=== PATIENT | female | born 1975 | race Caucasian/White ===

== ENCOUNTER 2023-02-10 13:18 | Emergency (ER) | payer OTHER, SELFPAY ==
[2023-02-10] VITALS (7 sets, daily range): BP systolic 94–104; BP diastolic 68–82; PULSE 109–129; RESP 19–24; TEMP 36.7–37.1; O2SAT 88–96
--- NOTE | ~2023-02-10 | XR_ITS ---
Clinical Indication: Asthma PA and lateral views of the chest: Comparison: None Findings: Questionable minimal bibasilar haziness. Cardiomediastinal silhouette is within normal alexandre its. Bones and soft tissues are unremarkable. Impression: Questionable minimal bibasilar haziness. Correlate for minimal pulmonary edema or atypical infection. Reviewed, dictated and finalized at [facility]. Impression: Questionable minimal bibasilar haziness. Correlate for minimal pulmonary edema or atypical infection.
--- NOTE | 2023-02-10 13:19 | ECG_ITS ---
Measurements Intervals [place] Rate: 122 P: 55 [place]: 140 QRS: 9 QRSD: 86 T: 67 QT: 407 QTc: 582 Interpretive Statements SINUS TACHYCARDIA VENTRICULAR PREMATURE COMPLEX DELAYED PRECORDIAL R/S TRANSITION BASELINE ARTIFACT- I, II, III, AVR, AVL, AVF, V5 ABNORMAL ECG NO PREVIOUS ECG AVAILABLE FOR COMPARISON Electronically Signed On 02-10-2023 16:10:31 CDT by Foreign Tracey D.O.
[2023-02-10 14:16] LABS: Alanine Aminotransferase 20 U/L (6-35); Albumin Level 4.2 g/dL (3.5-5.1); Alkaline Phosphatase 121 U/L (38-126); Anion Gap 8 mmol/L (8-16); Aspartate Amino Transferase 35 U/L (14-36); Bilirubin,Total 1.3 mg/dL (0.2-1.3); Blood Urea Nitrogen 4 mg/dL (7-17); Calcium 9.1 mg/dL (8.4-10.2); Carbon Dioxide 29 mmol/L (22-30); Chloride 95 mmol/L (98-107); Estimated CRCL calculation 108 ml/min; Estimated Glomerular Filt Rate > 60; Glucose 169 mg/dL (65-110); Potassium 4.8 mmol/L (3.4-5.0); Sodium 132 mmol/L (137-145)
[2023-02-10 14:55] LABS: Eosinophils Percent Auto 1.1 % (0-4.4); Immature Granulocyte Absolute 0.04 K/mm3 (0.00-0.031); Immature Granulocyte Percent A 1.5 % (0-0.5); Lymphocytes Absolute Auto 0.44 K/mm3 (0.9-3.2); Lymphocytes Percent Auto 16.6 % (18.3-44.2); Mean Corpuscular HGB Conc 32.2 g/dl (32-36); Mean Corpuscular Hemoglobin 35.4 pg (26-34); Mean Corpuscular Volume 110.1 fl (80-100); Mean Platelet Volume 10.1 fl (7.4-10.4); Monocytes Absolute Auto 0.2 K/mm3 (0.1-0.6); Monocytes Percent Auto 8.3 % (2.6-8.5); Neutrophils Absolute Auto 1.9 K/mm3 (1.3-6.7); Neutrophils Percent Auto 72.5 % (45.5-73.1); Red Cell Distribution Width 12.6 % (11.5-14.5)
[2023-02-10 14:56] LABS: Hematocrit 43.5 % (37.0-47.0); Red Blood Count 3.95 M/mm3 (4.2-5.4)
[2023-02-10 14:57] LABS: Platelet Count Result 170 k/mm3 (150-375); White Blood Count 13.5 K/mm3 (4.5-10.0)
[2023-02-10] MEDS: IPRATROPIUM BR 0.02% INH SOLN 0.5 MG/2.5 ML VIAL INHALATION (16:13)
[2023-02-10] MEDS: ALBUTEROL SULFATE NEB 2.5 MG/3 ML INH 5 MG INHALATION (16:13)
[2023-02-10 16:27] LABS: Troponin I < 0.012 ng/mL (0.000-0.034)
[2023-02-10] MEDS: KETOROLAC 30 MG/ML VIAL (*BKC) IV PUSH (16:54)
[2023-02-10] MEDS: methylPREDNISolone SOD SUCC 125 MG VIAL IV PUSH (16:58)
[2023-02-10] MEDS: ACETAMINOPHEN 500 MG TABLET 1000 MG PO (17:02)
[2023-02-10] MEDS: SODIUM CHLORIDE 0.9% IV 1,000 ML 999 ML IV CONT (17:03)
--- NOTE | 2023-02-10 18:10 | PC.NURSE ---
Pt ambulated around the nurse's station with an O2 of 89%. Pt stated that she felt okay the entire time.
--- NOTE | 2023-02-10 18:18 | ED.SOB ---
HPI - SOB/Dyspnea General Chief Complaint: Shortness of Breath/Dyspnea Stated Complaint: SOB, CP Time Seen by Provider: 02/10/23 15:33 History of Present Illness HPI Narrative: This is a 48-year-old female, with past history of COPD, recently discharged AGAINST MEDICAL ADVICE from [facility] 3 days ago for pneumonia and C. difficile, who presents to the emergency department complaining of shortness of breath and chest pain. The patient states she does not have an albuterol inhaler at home and has not used her nebs. She complains of cough productive of scant sputum with associated left lower chest pain, described as sore and dull. Pain is rated 4/10 and does not radiate. She states she picked up her antibiotics from the pharmacy today. She denies current diarrhea with a solid stool passed today Related Data Allergies Allergy/AdvReac Type Severity Reaction Status Date / Time adhesive tape AdvReac Other Verified 02/10/23 15:40 Sulfa (Sulfonamide AdvReac Headache Verified 02/10/23 13:18 Antibiotics) Review of Systems Review of Systems: CONSTITUTIONAL: Denies fever, chills, or sweats. CARDIOVASCULAR: Chest pain denies palpitations, or edema. RESPIRATORY: Cough and dyspnea GASTROINTESTINAL: Denies abdominal pain, nausea, vomiting, or diarrhea. GENITOURINARY: Denies dysuria or hematuria. SKIN: Denies rash or itching. MUSCULOSKELETAL: Denies back pain, joint pain, or myalgia. NEUROLOGIC: Denies headache, numbness, dizziness, or weakness. PSYCHIATRIC: Denies anxiety or depression. PMFSH Past Medical History Medical History COPD (chronic obstructive pulmonary disease) Surgical History Surgical History No significant past surgical history Social History Social History (Updated 02/10/23 @ 22:57 by Jacob Brenardo MD) Smoking status: Current every day smoker Alcohol intake: never Substance use: current Substance use type: marijuana Exam Narrative: GENERAL: Well-developed, well-nourished, and in no acute distress. HEAD: Normocephalic, atraumatic. EYES: PERRLA and EOMI. ENT: Nares clear, no rhinorrhea or epistaxis. Mucous membranes moist. Oropharynx without tonsillar hypertrophy exudate or other lesions. NECK: Supple. No adenopathy or masses. No JVD CHEST: Clear to auscultation. No respiratory distress. No wheezes rales or rhonchi HEART: Regular rate and rhythm. No murmur heard. Normal peripheral pulses. ABDOMEN: Soft, nontender, nondistended, normal active bowel sounds. EXTREMITIES: Normal range of motion. No edema. SKIN: Warm, dry, no rash. NEURO: No focal deficits. Alert and oriented x3. PSYCH: Normal mood and affect. Course Course Emergency Course: 18:10 - On reevaluation, the patient states she feels improved. She ambulated with nursing staff and feels comfortable with discharge. Chemistries unremarkable. CBC demonstrates elevated white blood cell count of 13.5. Chest x-ray demonstrates minimal bibasilar opacities. EKG and troponin negative. Will discharge with an albuterol inhaler and recommendation for inhaler treatments once an hour for 3 hours and as needed thereafter. I advised the patient to continue taking the antibiotics previously prescribed. Discussed return and emergency precautions including signs/symptoms of ACS and respiratory distress. The patient voiced understanding and is comfortable with the plan. All questions answered to her satisfaction Vital Signs Vital signs: Vital Signs Temperature 98.1 F 02/10/23 13:21 Pulse Rate 129 H 02/10/23 13:21 Respiratory Rate 20 02/10/23 13:21 Blood Pressure 98/68 L 02/10/23 13:21 Pulse Oximetry 90 02/10/23 13:21 Oxygen Delivery Room Air 02/10/23 13:21 Temperature 98.8 F 02/10/23 15:43 Pulse Rate 110 H 02/10/23 18:37 Respiratory Rate 19 02/10/23 17:08 Blood Press
== END 2023-02-10 16:30 | disposition home or self-care (01) ==
PROVIDERS: General Practice; Emergency Provider Preventive Medicine Aerospace Medicine; PCP Family Medicine
DX: J44.1 Chronic obstructive pulmonary disease with (acute) exacerbation (principal); R00.0 Tachycardia, unspecified; J18.9 Pneumonia, unspecified organism
CPT/HCPCS: 36415; 71046; 80053; 84484; 85025; 93005; 94640; 96361; 96374; 96375; 99284; A9270; J1885; J2930; J7030

== ENCOUNTER 2023-02-17 10:31 | Observation (INO) | payer OTHER, SELFPAY ==
[2023-02-17] VITALS (24 sets, daily range): BP systolic 97–131; BP diastolic 71–86; PULSE 84–129; RESP 14–25; TEMP 37.1–37.6; O2SAT 86–97
--- NOTE | ~2023-02-17 | XR_ITS ---
EXAM: XR knee RT min 4V DATE: 02/17/2023 18:45 HISTORY: Right knee pain- NO INJURY . COMPARISON: None available. FINDINGS: Decreased mineralization. No fracture or dislocation. No lytic or blastic lesion. Mild kne e osteoarthritis. Patellar enthesopathy. No erosion or periosteal change. Soft tissues within normal limits. IMPRESSION: Severe osteopenia. No acute osseous finding in the right knee. Reviewed, dictated and finalized at location K.
--- NOTE | ~2023-02-17 | US_ITS ---
EXAMINATION: US venous doppler [facility] DATE: 02/18/2023 10:05 INDICATION: Abdominal pain. TECHNIQUE: Grayscale ultrasound images without and with compression and Doppler ultrasound images of the bilateral lower extremity veins were obtained. COMPARISON: None. FINDINGS: The visualized portions of right common femoral vein, profunda (deep) femoral vein, femoral vein, pop liteal vein, peroneal veins, posterior tibial veins, and greater saphenous vein outflow are patent. The visualized portions of left common femoral vein, profunda femoral vein, femoral vein, popliteal v ein, peroneal veins, posterior tibial veins, and greater saphenous vein outflow are patent. IMPRESSION: 1. No deep venous thrombosis. Reviewed, dictated and finalized at location L.
--- NOTE | ~2023-02-17 | XR_ITS ---
EXAMINATION: XR chest 2V DATE: 02/17/2023 11:45 INDICATION: Shortness of breath. TECHNIQUE: Frontal and lateral views of the chest were obtained. COMPARISON: Chest 2 views 02/10/2023 FINDINGS: There is no pneumonia, pleural effusion, or pneumothorax. The heart size is normal. IMPRESSION: 1. No acute cardiopulmonary disease. Reviewed, dictated and finalized at location B.
--- NOTE | ~2023-02-17 | CT_ITS ---
EXAMINATION: CT abdomen pelvis w con DATE: 02/17/2023 13:17 INDICATION: Chronic diarrhea. TECHNIQUE: Computed tomography (CT) of the abdomen and pelvis was performed with 100 mL Omnipaque 350 intravenous contrast. Automated exposure control and iterative reconstruction technique were employe d. The dose-length product was 243.07 mGy-cm. COMPARISON: None. FINDINGS: There are patchy groundglass opacities in the lower lobes and right upper lobe. There is mi ld atelectasis in right middle lobe. No pleural effusion. The heart size is normal. There are coronar y artery calcifications. No pericardial effusion. The liver is normal. The gallbladder is normal in s ize. Material in the gallbladder may be sludge or stones. The spleen, pancreas, adrenal glands, and k idneys are normal. There is diverticulosis of the colon without evidence of diverticulitis. There is liquid stool in the colon correlating with the symptom of diarrhea. The appendix is normal. There is calcified atherosclerosis of the aorta and many of the other arteries. There are no pathologically en larged lymph nodes. There is no free intraperitoneal fluid. There is mild lumbar spondylosis. IMPRESSION: 1. Patchy groundglass opacities in the lower lobes and right upper lobe suspicious for atypical pneum onia. Reviewed, dictated and finalized at location B. IMPRESSION: 1. Patchy groundglass opacities in the lower lobes and right upper lobe suspici ous for atypical pneumonia.
--- NOTE | ~2023-02-17 | CT_ITS ---
EXAMINATION: CTA chest PE protocol DATE: 02/17/2023 18:50 INDICATION: Elevated D-dimer TECHNIQUE: Computed tomography angiography (CTA) of the chest was performed with 100 mL Omnipaque-350 intravenous contrast timed to evaluate the pulmonary arteries. Coronal maximum intensity projection 3D-reconstructions were created by the technologist. The dose-length product (DLP) was 208.30 mGy-cm. Automated exposure control and iterative reconstruction technique were employed. COMPARISON: X-ray chest 02/17/2023. FINDINGS: Lung parenchyma and airways: Ill-defined scattered small patchy areas of groundglass and tree-in-bud opacities. Pleura: Unremarkable. Thoracic inlet, axillae and chest wall: Unremarkable. Thoracic aorta: Normal. Mediastinum: Normal. Heart and pericardium: Normal. Coronary artery calcifications: Mild. Upper abdomen: No significant finding. Bones: No acute osseous finding. Pulmonary arteries: Study quality: Adequate. No pulmonary emboli detected. IMPRESSION: No CT evidence of acute pulmonary embolus. Pulmonary opacities as can be seen with atypical infection (MAC, TB, fungal), ABPA, airways disease ( CF, bronchiectasis), and aspiration. Reviewed, dictated and finalized at location K. IMPRESSION: No CT evidence of acute pulmonary embolus. Pulmonary opacities as can be seen with atypical infection (MAC, TB, fungal), A BPA, airways disease (CF, bronchiectasis), and aspiration.
--- NOTE | 2023-02-17 11:05 | ED.NAVMDI ---
HPI - Nausea/Vomiting/Diarrhea General Chief complaint: Nausea/Vomiting/Diarrhea Stated complaint: Cdiff, Right knee pain Time Seen by Provider: 02/17/23 10:37 History of Present Illness HPI Narrative: 48-year-old female history of hypertension and asthma presents to the emergency room for evaluation of diarrhea. Patient states 2 weeks ago she was seen at [facility], operated by [facility] emergency room for multiple episodes of nonbloody diarrhea, was diagnosed with C. difficile. Patient was admitted at that time for hydration and IV antibiotics. States after 2 days she signed out AMA. Patient reports she continues to take 3 different types of antibiotics . Reports she stopped taking her antibiotics yesterday, continues to have multiple episodes of diarrhea. Patient also reports experiencing shortness of breath. Denies any abdominal pain or fevers. Related Data Allergies Allergy/AdvReac Type Severity Reaction Status Date / Time Sulfa (Sulfonamide AdvReac Severe unk Verified 06/10/17 16:59 Antibiotics) Review of Systems Review of Systems: CONSTITUTIONAL: Denies fever, chills, or sweats. EYES: Denies visual changes, redness, or discharge. ENT: Denies rhinorrhea, congestion, sore throat, or otalgia. CARDIOVASCULAR: Denies chest pain, palpitations, or edema. RESPIRATORY: Reports dyspnea. GASTROINTESTINAL: Reports abdominal discomfort and diarrhea. GENITOURINARY: Denies dysuria or hematuria. SKIN: Denies rash or itching. MUSCULOSKELETAL: Denies back pain, joint pain, or myalgia. NEUROLOGIC: Denies headache, numbness, dizziness, or weakness. PSYCHIATRIC: Denies anxiety or depression. Exam Narrative: GENERAL: Cachectic, no physical limitations, and in no acute distress. HEAD: Normocephalic, atraumatic. EYES: Conjunctivae normal, PERRLA and EOMI. CHEST: Inspiratory wheezing upper lung rodriguez HEART: Tachycardic with regular rhythm. No murmur heard. Normal peripheral pulses. ABDOMEN: Soft, right lower quadrant tenderness, nondistended, hyper active bowel sounds. EXTREMITIES: Normal range of motion. No edema. No clubbing or cyanosis SKIN: Warm, dry, no rash. No noted wounds NEURO: No focal deficits. Alert and oriented x3. MAEW. CN's II-XI intact bilaterally, normal gait PSYCH: Cooperative. Normal mood and affect. Course Vital Signs Vital signs: Vital Signs Pulse Rate 128 H 02/17/23 10:43 Respiratory Rate 20 02/17/23 10:43 Blood Pressure 131/86 02/17/23 10:43 Pulse Oximetry 91 02/17/23 10:43 Temperature 37.6 C 02/17/23 10:47 Pulse Rate 108 H 02/17/23 12:45 Respiratory Rate 17 02/17/23 12:45 Blood Pressure 113/81 02/17/23 12:35 Pulse Oximetry 94 02/17/23 12:45 Oxygen Delivery Nasal Cannula 02/17/23 11:49 Oxygen Flow Rate 2 02/17/23 11:49 MDM - Nausea/Vomiting/Diarrhea MDM Narrative Medical decision making narrative: 48-year-old female history of asthma and hypertension presented to the emergency room for evaluation of diarrhea and shortness of breath. Patient was recently admitted to [facility], but left AGAINST MEDICAL ADVICE citing that she was being treated poorly. Patient was being treated for C. difficile. States that she was sent home on 3 antibiotics, which she completed yesterday. Patient continues to have multiple episodes of diarrhea. Patient was found to be hypoxic on presentation with a pulse ox of 82%. ABG shows respiratory alkalosis. Chest x-ray shows bilateral lower lobe pneumonia. CT abdomen shows no acute abnormality. Patient was started on Rocephin and azithromycin for pneumonia. Consulted with hospitalist will admit patient to [facility]. Lab Data 02/17/23 10:55 02/17/23 10:55 Labs: Lab Results 02/17/23 02/17/23 Range/Units 10:55 11:25 WBC 9.1 (4.5-10.0) K/mm3 RBC 3.90 L (4.2-5.4) M/mm3 Hgb 14.0 (12.0-15.0) g/dL Hct 42.5 (37.0-47.0) % MCV 109.0 H (80-100) fl MCH 35.9 H (26-34) pg MCHC 32.9
[2023-02-17] MEDS: SODIUM CHLORIDE 0.9% IV 1,000 ML 500 ML IV CONT (11:12)
[2023-02-17 11:13] LABS: Alanine Aminotransferase 32 U/L (6-35); Albumin Level 3.9 g/dL (3.5-5.1); Alkaline Phosphatase 118 U/L (38-126); Anion Gap 7 mmol/L (8-16); Aspartate Amino Transferase 43 U/L (14-36); Bilirubin,Total 0.4 mg/dL (0.2-1.3); Blood Urea Nitrogen 2 mg/dL (7-17); Calcium 8.6 mg/dL (8.4-10.2); Carbon Dioxide 33 mmol/L (22-30); Chloride 97 mmol/L (98-107); Estimated CRCL calculation 89 ml/min; Estimated Glomerular Filt Rate > 60; Glucose 231 mg/dL (65-110); Lipase 46 U/L (23-300); Potassium 3.3 mmol/L (3.4-5.0); Sodium 137 mmol/L (137-145)
[2023-02-17 11:38] LABS: Appearance Urine Clear (Clear); Bilirubin Urine Negative (Negative); Blood Urine Negative (Negative); Color Urine Yellow (Yellow); Glucose Urine UA Trace mg/dL (Negative); Ketones Urine Negative (Negative); Leukocyte Esterase Ur Negative LEU/UL (Negative); Nitrate Urine Negative (Negative); Protein Urine Negative (Negative); Specific Grav Ur 1.012 (1.001-1.035); Urobilinogen Urine 0.2 mg/dL (<2.0); pH Urine 5.5 (5.0-9.0)
[2023-02-17 11:46] LABS: Alveolar/Arterial O2 Gradient 53.5 mmHg; Base Excess ABG 5.9 mEq/l (+/-2.0); Fractional Inspired Oxygen 21 %; HCO3 ABG 28.6 mEq/l (22.0-26.0); Oxygen Content ABG 17.3 %vol (16.0-22.0); Oxygen Saturation ABG 91.4 % (95.0-100.0); PCO2 ABG 35.3 mmHg (35.0-45.0); PO2 FiO2 Ratio Arterial Blood 2.57 %; Total Hemoglobin 14.5 g/dL (12.0-18.0)
[2023-02-17 11:47] LABS: Add Urine Microscopic? NO
[2023-02-17 11:47] LABS: pH ABG 7.526 (7.350-7.450)
[2023-02-17 11:48] LABS: Modified Allen's Test Pass; Oxyhemoglobin 85.2 % THb (90.0-100.0); Site Drawn RIGHT RADIAL
[2023-02-17 12:18] LABS: IFOB Positive Control Positive; Immunochemical Fecal Occult Bl Negative (N)
[2023-02-17 12:20] LABS: Eosinophils Percent Auto 1.7 % (0-4.4); Immature Granulocyte Absolute 0.03 K/mm3 (0.00-0.031); Immature Granulocyte Percent A 1.7 % (0-0.5); Lymphocytes Absolute Auto 0.42 K/mm3 (0.9-3.2); Lymphocytes Percent Auto 23.2 % (18.3-44.2); Mean Corpuscular HGB Conc 32.9 g/dl (32-36); Mean Corpuscular Hemoglobin 35.9 pg (26-34); Mean Platelet Volume 9.9 fl (7.4-10.4); Monocytes Absolute Auto 0.2 K/mm3 (0.1-0.6); Monocytes Percent Auto 8.3 % (2.6-8.5); Neutrophils Absolute Auto 1.2 K/mm3 (1.3-6.7); Neutrophils Percent Auto 65.1 % (45.5-73.1); Red Cell Distribution Width 12.8 % (11.5-14.5)
[2023-02-17 12:26] LABS: Hematocrit 42.5 % (37.0-47.0); Platelet Count Result 385 k/mm3 (150-375); White Blood Count 9.1 K/mm3 (4.5-10.0)
[2023-02-17 12:29] LABS: Platelet Estimate Adequate (Adequate); Schistocytes None Seen (NORMAL)
[2023-02-17 12:53] LABS: Toxigenic C. Diff NEGATIVE (NEGATIVE)
[2023-02-17 13:10] LABS: Hemoglobin A1C 5.5 % (<5.7)
[2023-02-17] MEDS: AZITHROMYCIN 500 MG/NS 250 ML 500 MG/250 ML BAG 250 MG IVPB (14:08)
[2023-02-17] MEDS: ALBUTEROL SULFATE NEB 2.5 MG/3 ML INH INHALATION ×2 (14:23→21:35)
[2023-02-17 15:01] LABS: D Dimer 3.67 ug/mL (<0.48)
[2023-02-17 15:28] LABS: Influenza A QL RT-PCR Negative (Negative); Influenza B QL RT-PCR Negative (Negative); SARS-CoV-2 RNA PCR Negative (Negative)
--- NOTE | 2023-02-17 15:54 | ADMGEN ---
This patient, Radha Mendoza, was admitted to Medical Room 246-. Patient/family oriented to hospital policies and general routines including ID bracelet, bed and alarms, visiting hours, pain management, procedures, bathroom and other care routines, personal items, smoking policy, room service/diet, and visiting hours. Information on how to activate the Rapid Response Team has been discussed. Patient/Family are encouraged to report perceived risks to care and to ask questions if they do not understand what they are told or what they should do.
--- NOTE | 2023-02-17 16:12 | PM.IMHP ---
H&P: HPI History of Present Illness Date/Time: 02/17/23 16:12 Chief Complaint: Nausea vomiting diarrhea Narrative: This is a 48-year-old female patient who has a history of hypertension and asthma. The patient stated that approximately 2 weeks ago she was at [facility] and had diarrhea at that time and she was diagnosed with C diff. The patient stated that she took all the antibiotics for C diff dial. The patient stated that she has chronic diarrhea. The patient stated that she also drinks 24 oz cans of beer at least 6 cans a day. The patient also uses marijuana at times. The patient feels that she may be going into withdrawal soon. Patient stated that her stools are still loose. ER sent to stool specimen for evaluation she was found to be negative for C diff. the patient also has multiple polyps to bilateral arms and states that she bleeds she has bedbugs. We went through all of her belongings and assess the patient cannot find any bedbugs on the patient or her belongings. Abdominal pelvis CT was read as patchy ground-glass opacities in the lower lungs and right upper lung suspicious for atypical pneumonia. Chest x-ray was read as no acute cardiopulmonary disease. The patient was given IV fluids azithromycin Rocephin. The patient is being admitted to observation status on the date of service of 02/17/2023. Review of Systems Review of Systems: All systems reviewed & are unremarkable except as noted in HPI and below Constitutional: Constitutional: Reports as per HPI and Reports no additional constitutional complaints Eyes: Eyes: Reports as per HPI and Reports no additional eye complaints ENT: Reports system reviewed and no additional complaints, except as documented and Reports Normal hearing present Cardiovascular: Cardiovascular: Reports no additional cardiovascular complaints Respiratory: Respiratory: Reports no additional respiratory complaints and Reports no additional respiratory complaints Gastrointestinal: Gastrointestinal: Reports as per HPI and Reports no additional gastrointestinal complaints Musculoskeletal: Musculoskeletal: Reports no additional musculoskeletal complaints Integumentary/Breasts: Skin/Breast: Reports system reviewed and no additional complaints, except as docu and Reports as per HPI Neurologic: Reports system reviewed and no additional complaints, except as documented, Reports as per HPI and Reports Normal hearing present Psychiatric: Psychiatric: Reports no additional psychiatric complaints and Reports as per HPI Endocrine: Endocrine: Reports no additional endocrine complaints Hematologic/Lymphatic: Hematologic/Lymphatic: Reports no additional hematologic/lymphatic complaints Allergic/Immunologic: Allergic/Immunologic: Reports no additional allergic/immunologic complaints PMFSH Past Medical History Medical History (Updated 02/17/23 @ 18:47 by Mary Allen NP) Asthma Chronic back pain Chronic GERD History of Clostridioides difficile colitis Hypertension Marijuana use Nicotine abuse Surgical History Surgical History (Updated 02/17/23 @ 18:32 by Mary Allen NP) H/O dilation and curettage Family History Family History (Updated 02/17/23 @ 18:33 by Mary Allen NP) Father Diabetes mellitus Mother Diabetes mellitus Social History Social History (Updated 02/17/23 @ 18:34 by Mary Allen NP) Social History: The patient lives with her significant other. She occasionally smokes marijuana. She does work on auditing medical records. She drinks a 24 oz beer approximately 2-6 cans a day. She has 1 daughter that is 32 years old. Code status full code. Smoking packs per day: 1 Smoking cigarettes per day: 20.0 Smoking status: Current every day smoker Alcohol intake: current Drinks per week: 42 Substance use: current Substance use type: marijuana Lack of Transportation: No Lack of Food: Never True Current Housing: I Have Housing C
[2023-02-17 17:24] LABS: Glucose Point of Care 138 mg/dl (65-105)
[2023-02-17] MEDS: FAMOTIDINE 20 MG/2 ML VIAL IV PUSH (20:56)
[2023-02-17] MEDS: NICOTINE (*PBKC) 21 MG PATCH 1 PATCH TRANSDERM (21:09)
[2023-02-17] MEDS: chlordiazePOXIDE (*CRX) 25 MG CAPSULE PO (21:16)
[2023-02-17] MEDS: IPRATROPIUM BR 0.02% INH SOLN 0.5 MG/2.5 ML VIAL INHALATION (21:34)
[2023-02-18 02:12] LABS: Glucose Point of Care 105 mg/dl (65-105)
[2023-02-18] MEDS: IPRATROPIUM BR 0.02% INH SOLN 0.5 MG/2.5 ML VIAL INHALATION ×2 (02:52→07:36)
[2023-02-18 02:53] VITALS: PULSE 80; RESP 19
[2023-02-18] MEDS: ALBUTEROL SULFATE NEB 2.5 MG/3 ML INH INHALATION ×2 (02:53→07:36)
[2023-02-18 03:05] VITALS: PULSE 82; RESP 18
[2023-02-18 05:50] LABS: Lactic Acid Reflex 2.9 mmol/L (0.7-2.0)
[2023-02-18 06:00] VITALS: BP 118/83; PULSE 96; RESP 18; TEMP 36.8; O2SAT 93
[2023-02-18 06:12] LABS: Alanine Aminotransferase 22 U/L (6-35); Albumin Level 3.2 g/dL (3.5-5.1); Alkaline Phosphatase 96 U/L (38-126); Anion Gap 3 mmol/L (8-16); Aspartate Amino Transferase 28 U/L (14-36); Bilirubin,Total 0.4 mg/dL (0.2-1.3); Blood Urea Nitrogen < 2 mg/dL (7-17); Calcium 8.1 mg/dL (8.4-10.2); Carbon Dioxide 29 mmol/L (22-30); Chloride 99 mmol/L (98-107); Estimated CRCL calculation 108 ml/min; Estimated Glomerular Filt Rate > 60; Glucose 177 mg/dL (65-110); Magnesium 2.3 mg/dL (1.6-2.3); Potassium 2.9 mmol/L (3.4-5.0); Sodium 131 mmol/L (137-145)
[2023-02-18 06:43] LABS: Glucose Point of Care 191 mg/dl (65-105)
[2023-02-18 07:38] VITALS: PULSE 105; RESP 20; O2SAT 93
--- NOTE | 2023-02-18 07:42 | PM.IMPN ---
Progress Note: A&P Assessment and Plan (1) Pneumonia: Qualifiers: Laterality: bilateral Lung location: lower lobe of lung Pneumonia type: due to unspecified organism Qualified Code(s): J18.9 - Pneumonia, unspecified organism Code(s): J18.9 - Pneumonia, unspecified organism Status: Acute Assessment and Plan: Azithromycin and Rocephin started 02/17 Sputum cultures and blood culture Continue with nebulizer treatments CT concerning for atypical pneumonia, pulmonology consult pending (2) Hypertension: Code(s): I10 - Essential (primary) hypertension Status: Acute Assessment and Plan: Continue with amlodipine. Blood pressures reviewed 02/18 (3) Chronic GERD: Code(s): K21.9 - Gastro-esophageal reflux disease without esophagitis Status: Acute Assessment and Plan: IV Pepcid (4) Nicotine abuse: Code(s): Z72.0 - Tobacco use Status: Acute Assessment and Plan: Nicotine patch (5) Chronic back pain: Code(s): M54.9 - Dorsalgia, unspecified; G89.29 - Other chronic pain Status: Acute Assessment and Plan: P.r.n. Ultram (6) Asthma: Code(s): J45.909 - Unspecified asthma, uncomplicated Status: Acute Assessment and Plan: Continue nebulizer treatments. (7) Bedbug bite: Code(s): W57.XXXA - Bitten or stung by nonvenomous insect and other nonvenomous arthropods, initial encounter Status: Acute Assessment and Plan: The patient has cortisone that she has been using. (8) Elevated d-dimer: Code(s): R79.89 - Other specified abnormal findings of blood chemistry Status: Acute Assessment and Plan: Negative for PE (9) Marijuana use: Code(s): F12.90 - Cannabis use, unspecified, uncomplicated Status: Acute Assessment and Plan: Patient states she occasionally uses marijuana. (10) Diarrhea: Qualifiers: Diarrhea type: unspecified type Qualified Code(s): R19.7 - Diarrhea, unspecified Code(s): R19.7 - Diarrhea, unspecified Status: Acute Assessment and Plan: The patient stated she has chronic diarrhea. She recently had C diff a couple weeks ago. Her stools checked and she was negative. (11) Alcoholism: Code(s): F10.20 - Alcohol dependence, uncomplicated Status: Acute Assessment and Plan: Continue with CIWA scores. Continue with Librium and Ativan. Folic acid and thiamine. Plan DVT prophylaxis with Lovenox GI prophylaxis not indicated Code status full code Subjective Date/time seen: 02/18/23 07:42 Interval history: No overnight events noted. No chest pain or shortness of breath. No nausea, vomiting or diarrhea. No fevers or chills. Review of Systems Review of Systems: 12 point review of systems was assessed and was negative except as noted in the HPI Exam Narrative: General: No acute distress, alert and oriented per baseline HEENT: Atraumatic, normocephalic, mucous membranes moist CV: Regular rate and rhythm, S1, S2 Lungs: Clear to auscultation bilaterally, no rales or crackles noted, no wheezes, good air entry Abdomen: Soft, nontender, nondistended Extremities: Normal to inspection Skin: No rashes noted, no lesions or wounds seen Psych: Euthymic, normal affect Objective Data Vital Signs Vital Signs: Vital Signs - 24 hr 02/17/23 10:47 02/17/23 10:43 02/17/23 10:44 Temperature 99.6 F Pulse Rate 128 H 128 H 128 H Respiratory Rate 18 20 19 Blood Pressure 119/85 131/86 Pulse Oximetry 86 L 91 89 L Oxygen Delivery Room Air Oxygen Flow Rate Fraction of Inspired Oxygen 02/17/23 10:45 02/17/23 10:46 02/17/23 11:49 Temperature Pulse Rate 127 H 127 H Respiratory Rate 14 19 Blood Pressure 119/85 Pulse Oximetry 91 88 L 92 Oxygen Delivery Nasal Cannula Oxygen Flow Rate 2 Fraction of Inspired Oxygen 02/17/23 11:52 02/17/23 11:53 08
[2023-02-18 07:50] VITALS: PULSE 108; RESP 20
[2023-02-18 07:54] LABS: Eosinophils Percent Auto 1.5 % (0-4.4); Immature Granulocyte Absolute 0.02 K/mm3 (0.00-0.031); Immature Granulocyte Percent A 1.5 % (0-0.5); Lymphocytes Absolute Auto 0.44 K/mm3 (0.9-3.2); Lymphocytes Percent Auto 33.1 % (18.3-44.2); Mean Corpuscular HGB Conc 33.8 g/dl (32-36); Mean Corpuscular Hemoglobin 39.3 pg (26-34); Mean Corpuscular Volume 116.1 fl (80-100); Mean Platelet Volume 9.8 fl (7.4-10.4); Monocytes Absolute Auto 0.1 K/mm3 (0.1-0.6); Monocytes Percent Auto 9.8 % (2.6-8.5); Neutrophils Absolute Auto 0.7 K/mm3 (1.3-6.7); Neutrophils Percent Auto 54.1 % (45.5-73.1); Red Cell Distribution Width 13.1 % (11.5-14.5)
[2023-02-18 07:57] LABS: Hematocrit 32.5 % (37.0-47.0); Platelet Count Result 295 k/mm3 (150-375); White Blood Count 6.7 K/mm3 (4.5-10.0)
[2023-02-18 08:33] LABS: Reflex Lactic Acid Yes or No Add Lactic
[2023-02-18 09:05] LABS: Lactic Acid 1.3 mmol/L (0.7-2.0)
[2023-02-18 09:29] LABS: Platelet Estimate Adequate (Adequate); Schistocytes None Seen (NORMAL)
[2023-02-18] MEDS: amLODIPine BESYLATE 5 MG TABLET PO (10:17)
[2023-02-18] MEDS: THIAMINE HCL 100 MG TABLET PO (10:18)
[2023-02-18] MEDS: FOLIC ACID 1 MG TABLET PO (10:18)
[2023-02-18] MEDS: FAMOTIDINE 20 MG/2 ML VIAL IV PUSH (10:18)
[2023-02-18 11:09] LABS: Influenza A QL RT-PCR Negative (Negative); Influenza B QL RT-PCR Negative (Negative); RSV RNA, RT-PCR Negative (Negative); SARS-CoV-2 RNA PCR Negative (Negative)
--- NOTE | 2023-02-18 12:06 | PM.CNPUL ---
Assessment and Plan Assessment and plan (1) Pneumonia: Qualifiers: Laterality: bilateral Lung location: lower lobe of lung Pneumonia type: due to unspecified organism Qualified Code(s): J18.9 - Pneumonia, unspecified organism Code(s): J18.9 - Pneumonia, unspecified organism Status: Acute Assessment and Plan: Patient with a history of asthma, tobacco use in double pneumonia and pneumonia diagnosed at [facility] on 02/07/2023. I do not have any of those medical records. She presented to the hospital now without respiratory complaints but with diarrhea and CT abdomen showed diffuse ground-glass mild infiltrates in CT CT angiogram of the chest showed no PE, mild patchy bilateral ground-glass infiltrates with tree-in-bud infiltrates as well. Etiology of the CT findings include post atypical pneumonia, post viral infection and/or bronchiolitis, smoking related interstitial lung disease such as respiratory bronchiolitis-ILD. Plan: I do not believe the patient needs any antibiotics currently. She will need follow-up imaging in approximately 6-8 weeks to reassess these infiltrates. I have told the patient is absolutely necessary that she stop smoking marijuana and stop smoking cigarettes at this time. I provided her 10 minutes of counseling. (2) Asthma: Code(s): J45.909 - Unspecified asthma, uncomplicated Status: Acute Assessment and Plan: Patient has a history of asthma diagnosed at age 12 and has been prescribed albuterol rescue inhaler which provides her with some relief. I have no PFTs. She has a clinical history that is consistent with asthma. She has reacted adversely to prednisone in 2014 and is somewhat hesitant to take inhaled corticosteroids. I do not feel the patient is having an active asthma exacerbation currently. Plan: Talked about the benefits of maintenance inhalers and at this time I will initiate Step 3 therapy with low-dose inhaled gmasupupacqrjaf-iclk-[id number] beta agonist and rescue albuterol. From a pulmonary perspective patient can be discharged on these pulmonary medications: Beta agonsit and inhaled corticosteroid that her insurance will cover (Advair HFA 115/21 at 1 puff BID which I ordered, Advair discus 100/50 at 1 puff BID, Breo Ellipta 200/25 at 1 puff Q day, Dulera 100/5 at 1 puffs BID, or symbicort 80/4.5 at 2 puffs BID) Rescue albuterol 2 puffs q.4 hours p.r.n. shortness of breath or wheezing. Follow-up in the Pulmonary Clinic in 3-4 weeks. I gave her our business card and informed our patient scheduler. Discussed with sherman Jean Baptiste with questions History of Present Illness History of Present Illness Consult date: 02/18/23 Chief complaint: pneumonia Narrative: 02/18/2023: This is a new pulmonary consult for pneumonia. 48-year-old with a history of asthma since age 12, hypertension, tobacco use, alcohol use. Regarding her asthma the patient tells me she was diagnosed at age 12 clinically as she was withdrawing from tobacco smoke she had a wheezing episode and was treated with Primatene mist and improved. She has been on and off of atio-edq-ymjeuur Primatene mist through 2012. She has mostly been off inhalers since then. Patient had prednisone in 2013 and she did not like this because it made her bloat and caused her to become very angry and mean. Her last use of albuterol was in January of 2022 and she took this for 2 days and her symptoms went away. Patient has recently been taking albuterol 2 puffs over the last few weeks because of shortness of breath. Patient is triggers include stress, heat, upper respiratory tract infections, dust and perfumes. Patient's symptoms are coughing, wheezing and clear phlegm production. At baseline patient states she can walk 6-8 blocks and has to stop because of a prior fractured left leg. She stops because of left leg fatigue and not because of breathing. Patient smokes tobacco from age 11 to current at
[2023-02-18 12:21] LABS: Glucose Point of Care 183 mg/dl (65-105)
--- NOTE | 2023-02-18 12:59 | PM.DS ---
DS: Admitting Diagnosis Discharge Date 02/18/23 Admitting Diagnosis sob DS: Discharge Diagnosis Discharge Diagnosis (1) Pneumonia: Qualifiers: Laterality: bilateral Lung location: lower lobe of lung Pneumonia type: due to unspecified organism Qualified Code(s): J18.9 - Pneumonia, unspecified organism Code(s): J18.9 - Pneumonia, unspecified organism Status: Acute Assessment and Plan: Azithromycin and Rocephin started 02/17 Sputum cultures and blood culture Continue with nebulizer treatments CT concerning for atypical pneumonia, pulmonology consult pending (2) Hypertension: Code(s): I10 - Essential (primary) hypertension Status: Acute Assessment and Plan: Continue with amlodipine. Blood pressures reviewed 02/18 (3) Chronic GERD: Code(s): K21.9 - Gastro-esophageal reflux disease without esophagitis Status: Acute Assessment and Plan: IV Pepcid (4) Nicotine abuse: Code(s): Z72.0 - Tobacco use Status: Acute Assessment and Plan: Nicotine patch (5) Chronic back pain: Code(s): M54.9 - Dorsalgia, unspecified; G89.29 - Other chronic pain Status: Acute Assessment and Plan: P.r.n. Ultram (6) Asthma: Code(s): J45.909 - Unspecified asthma, uncomplicated Status: Acute Assessment and Plan: Continue nebulizer treatments. (7) Bedbug bite: Code(s): W57.XXXA - Bitten or stung by nonvenomous insect and other nonvenomous arthropods, initial encounter Status: Acute Assessment and Plan: The patient has cortisone that she has been using. (8) Elevated d-dimer: Code(s): R79.89 - Other specified abnormal findings of blood chemistry Status: Acute Assessment and Plan: Negative for PE (9) Marijuana use: Code(s): F12.90 - Cannabis use, unspecified, uncomplicated Status: Acute Assessment and Plan: Patient states she occasionally uses marijuana. (10) Diarrhea: Qualifiers: Diarrhea type: unspecified type Qualified Code(s): R19.7 - Diarrhea, unspecified Code(s): R19.7 - Diarrhea, unspecified Status: Acute Assessment and Plan: The patient stated she has chronic diarrhea. She recently had C diff a couple weeks ago. Her stools checked and she was negative. (11) Alcoholism: Code(s): F10.20 - Alcohol dependence, uncomplicated Status: Acute Assessment and Plan: Continue with CIWA scores. Continue with Librium and Ativan. Folic acid and thiamine. Plan DVT prophylaxis with Lovenox GI prophylaxis not indicated Code status full code DS: Summary Hospital Course Hospital Course: 48-year-old female with history of asthma presenting with concerns for pneumonia. Patient states she has had symptoms for several weeks and was seen at [facility] for this and placed on antibiotics. She was also diagnosed with C diff, which is now resolved. Pulmonology was consulted due to abnormal CT chest concerning for atypical pneumonia. They recommended discharge with outpatient follow-up on no antibiotics and instead treatment for asthma. Please see above and med rec for details. Time Spent with Patient Time attestation: Total time spent providing and/or coordinating discharge services: Exam Narrative: General: No acute distress, alert and oriented per baseline HEENT: Atraumatic, normocephalic, mucous membranes moist CV: Regular rate and rhythm, S1, S2 Lungs: Clear to auscultation bilaterally, no rales or crackles noted, no wheezes, good air entry Abdomen: Soft, nontender, nondistended Extremities: Normal to inspection Skin: No rashes noted, no lesions or wounds seen Psych: Euthymic, normal affect DS: Data Data Completed and Pending Labs on day of discharge: Labs from last 24 hours 02/18/23 02/18/23 02/18/23 12:17 10:25 08:44 WBC RBC Hgb Hct MCV MCH MCHC
== END 2023-02-18 13:48 | disposition home or self-care (01) ==
LOC: ANHED 13:51 → ANH2MED 16:17 → ANH3MEDSUR 02-19 07:40
PROVIDERS: Internal Medicine Pulmonary Disease; Nurse Practitioner; Admitting Provider Internal Medicine; Emergency Provider Nurse Practitioner Family; Visit Provider Student in an Organized Health Care Education/Training Program
DX: J18.9 Pneumonia, unspecified organism (principal); I10 Essential (primary) hypertension; K21.9 Gastro-esophageal reflux disease without esophagitis; G89.29 Other chronic pain; M54.9 Dorsalgia, unspecified; J45.909 Unspecified asthma, uncomplicated; W57.XXXA Bitten or stung by nonvenomous insect and other nonvenomous arthropods, initial encounter; R79.1 Abnormal coagulation profile; R79.89 Other specified abnormal findings of blood chemistry; R19.7 Diarrhea, unspecified; R09.02 Hypoxemia; Z20.822 Contact with and (suspected) exposure to COVID-19; R10.9 Unspecified abdominal pain; R00.0 Tachycardia, unspecified; E87.3 Alkalosis; M85.88 Other specified disorders of bone density and structure, other site; Z87.19 Personal history of other diseases of the digestive system; F17.210 Nicotine dependence, cigarettes, uncomplicated; F10.20 Alcohol dependence, uncomplicated; F12.90 Cannabis use, unspecified, uncomplicated; Z79.899 Other long term (current) drug therapy
CPT/HCPCS: 36415; 36600; 71046; 71275; 73564; 74177; 80053; 81003; 81025; 82274; 82805; 82948; 83036; 83605; 83690; 83735; 84443; 85025; 85380; 87045; 87177; 87209; 87269; 87272; 87427; 87449; 87493; 87636; 87637; 93970; 94640; 96365; 96366; 96367; 96375; A9270; G0378; G0379; J0456; J0696; J3411; J3475; J7030; Q9967

== ENCOUNTER 2023-04-26 16:48 | Emergency (ER) | payer OTHER, SELFPAY ==
[2023-04-26] VITALS (16 sets, daily range): BP systolic 108–121; BP diastolic 74–90; PULSE 89–116; RESP 12–25; TEMP 36.3–36.7; O2SAT 84–97
--- NOTE | ~2023-04-26 | XR_ITS ---
EXAMINATION: XR chest 2V Exam Date/Time: 04/26/2023 17:10 CDT HISTORY: cp worse with coughing X 1 DAY Comparison: 02/17/2023. RESULT: Lines, tubes, and devices: None. Lungs and pleura: Patchy subsegmental bibasilar opacities. Cardiomediastinal silhouette: Stable. Other: No acute osseous or upper abdominal finding. IMPRESSION: Subsegmental bibasilar atelectasis/consolidation. Reviewed, dictated and finalized at location K.
--- NOTE | ~2023-04-26 | CT_ITS ---
EXAMINATION: CTA chest PE abdomen DATE: 04/26/2023 20:06 INDICATION: chest pain, dyspnea, hypoxia TECHNIQUE: Computed tomography angiography (CTA) of the chest was performed with 100 mL Omnipaque-350 intravenous contrast timed to evaluate the pulmonary arteries, followed by portal venous phase imagi ng of the abdomen. Coronal maximum intensity projection 3D-reconstructions were created by the techno [employer]. The dose-length product (DLP) was 319.03 mGy-cm. Automated exposure control and iterative rec onstruction technique were employed. COMPARISON: 02/17/2023. FINDINGS: CHEST: Lung parenchyma and airways: Subsegmental right middle lobe and lingular atelectasis. Mild dependent atelectasis. Pleura: Unremarkable. Thoracic inlet, axillae and chest wall: Unremarkable. Thoracic aorta: Normal. Mediastinum: Normal. Heart and pericardium: Normal. Coronary artery calcifications: Mild. Thoracic bones: No acute osseous finding. Pulmonary arteries: Study quality: Adequate. No pulmonary emboli detected. ABDOMEN/PELVIS: Liver: Steatosis. Biliary/Gallbladder: Cholelithiasis. No bile duct dilation. Pancreas: No mass or duct dilation. Spleen: Normal. Adrenals:No mass. Kidneys: No suspicious mass, obstructing stone, or hydronephrosis. GI tract: No small or large bowel dilation. Normal appendix. Mesentery/Peritoneum: No ascites, mass, or free air. Retroperitoneum: No mass. Soft Tissues: Soft tissues and body wall unremarkable. Bones: No acute osseous finding. IMPRESSION: No CT evidence of acute pulmonary embolus. No acute intrathoracic or abdominal process detected Reviewed, dictated and finalized at location K.
--- NOTE | 2023-04-26 16:56 | ECG_ITS ---
Measurements Intervals [place] Rate: 91 P: 48 MN: 150 QRS: -21 QRSD: 98 T: 56 QT: 375 QTc: 464 Interpretive Statements SINUS RHYTHM BORDERLINE LEFT AXIS DEVIATION [QRS AXIS < -20] COMPARED TO ECG 02/10/2023 13:29:04 SINUS RHYTHM NOW PRESENT Electronically Signed On 04-27-2023 15:54:31 CDT by Marco Antonio Hyde M.D.
[2023-04-26] MEDS: ASPIRIN 81 MG CHEWABLE TABLET 324 MG PO (17:24)
[2023-04-26 17:44] LABS: Prothrombin Time 13.1 Seconds (11.1-14.7)
--- NOTE | 2023-04-26 17:44 | ED.CHESTPAIN ---
HPI - Chest Pain General Chief Complaint: Chest Pain Stated Complaint: sob Time Seen by Provider: 04/26/23 17:00 History of Present Illness HPI narrative: 48-year-old female with a history of hypertension, alcohol use and COPD who currently smokes 1 pack/day for the past 35 years reports for evaluation for left-sided chest pain and shortness of breath 2 days. Patient states the chest pain is just inferior to her left breast. She denies exertional symptoms or radiating pain. She states it just hurts , but is unable to characterize the pain. Patient does report the chest pain is worse when she coughs and states when I cough I want to blackout , as well as with deep inspiration. She denies palpitations or syncope. She reports shortness of breath and a worsening cough from her baseline. She states she has been having productive cough with white mucus. Patient drinks 125 ounces of beer per day for the past 7 years. Of note, patient left AGAINST MEDICAL ADVICE in January after she is admitted for bibasilar pneumonia and C. difficile. She was then evaluated in our emergency department for shortness of breath and chest pain 3 days later. She was discharged home from the emergency department with diagnosis of COPD exacerbations and advised to continue the antibiotics that were previously prescribed (azithromycin and cefdinir) from [place], along with albuterol inhaler. Patient says she felt better until 3 days ago when the symptoms returned. She does note that she has been using her albuterol inhaler and nebulizers with improvement in symptoms. She denies fever, body aches or chills, abdominal pain, diarrhea. She says she was treated for C. difficile and has not had symptoms returned. She does report an episode of emesis 4 days ago after she gagged while smoking a cigarette. Related Data Allergies Allergy/AdvReac Type Severity Reaction Status Date / Time adhesive tape AdvReac Other Verified 02/10/23 15:40 Sulfa (Sulfonamide AdvReac Headache Verified 02/10/23 13:18 Antibiotics) Review of Systems Review of Systems: CONSTITUTIONAL: Denies fever, chills EYES: Denies visual changes, redness, or discharge. ENT: Denies rhinorrhea, congestion, sore throat, or otalgia. CARDIOVASCULAR: See HPI RESPIRATORY: See HPI GASTROINTESTINAL: See HPI GENITOURINARY: Denies dysuria or hematuria. SKIN: Denies rash or itching. MUSCULOSKELETAL: Denies back pain, joint pain, or myalgia. NEUROLOGIC: Denies headache, numbness, dizziness, or weakness. PSYCHIATRIC: Denies anxiety or depression. [facility] Past Medical History Medical History COPD (chronic obstructive pulmonary disease) Surgical History Surgical History No significant past surgical history Social History Social History Smoking status: Current every day smoker Alcohol intake: never Substance use: current Substance use type: marijuana Exam Narrative: GENERAL: Well-appearing, in no acute distress. Patient resting comfortably in exam bed. She is pleasant and conversational. Speaking in full sentences and satting 97% on room air HEAD: Normocephalic EYES: PERRLA ENT: Nares clear. Mucous membranes moist. Oropharynx without tonsillar hypertrophy exudate or other lesions. Lips dry NECK: Supple. CHEST: No respiratory distress. Wheezing and rhonchi throughout all lung rodriguez. No labored breathing or retractions. HEART: Regular rate and rhythm. No murmur heard. Normal peripheral pulses. ABDOMEN: Soft, normal active bowel sounds. Mild tenderness in the left lower quadrant with voluntary guarding. Negative Muñoz's. No CVA tenderness. No rebound or rigidity. EXTREMITIES: Normal range of motion. No edema. Negative Maria Guadalupe's. SKIN: Warm, dry, no rash. NEURO: No focal deficits. Alert and oriented x3. PSYCH: Norm
[2023-04-26 17:45] LABS: Partial Thromboplastin Time 36.2 SECONDS (22.3-36.8)
[2023-04-26 17:49] LABS: Alanine Aminotransferase 56 U/L (6-35); Albumin Level 4.3 g/dL (3.5-5.1); Alkaline Phosphatase 135 U/L (38-126); Anion Gap 8 mmol/L (8-16); Aspartate Amino Transferase 172 U/L (14-36); Basophils Absolute Auto 0.1 K/mm3 (0.0-0.1); Basophils Percent Auto 1.1 % (0.2-1.2); Bilirubin,Total 0.7 mg/dL (0.2-1.3); Blood Urea Nitrogen 4 mg/dL (7-17); Calcium 8.3 mg/dL (8.4-10.2); Carbon Dioxide 28 mmol/L (22-30); Chloride 96 mmol/L (98-107); Eosinophils Absolute Auto 0.2 K/mm3 (0-0.3); Eosinophils Percent Auto 3.3 % (0-4.4); Estimated CRCL calculation 89 ml/min; Estimated Glomerular Filt Rate > 60; Glucose 93 mg/dL (65-110); Immature Granulocyte Absolute 0.01 K/mm3 (0.00-0.031); Immature Granulocyte Percent A 0.2 % (0-0.5); Lipase 58 U/L (23-300); Lymphocytes Percent Auto 52.2 % (18.3-44.2); Mean Platelet Volume 10.1 fl (7.4-10.4); Monocytes Absolute Auto 0.4 K/mm3 (0.1-0.6); Monocytes Percent Auto 8.5 % (2.6-8.5); Neutrophils Absolute Auto 1.6 K/mm3 (1.3-6.7); Neutrophils Percent Auto 34.7 % (45.5-73.1); Platelet Count Result 121 k/mm3 (150-375); Potassium 4.6 mmol/L (3.4-5.0); Sodium 132 mmol/L (137-145); White Blood Count 4.6 K/mm3 (4.5-10.0)
[2023-04-26] MEDS: SODIUM CHLORIDE 0.9% IV 1,000 ML 999 ML IV CONT (17:54)
[2023-04-26 17:58] LABS: Troponin I 0.015 ng/mL (0.000-0.034)
[2023-04-26] MEDS: IPRATROPIUM BR 0.02% INH SOLN 0.5 MG/2.5 ML VIAL INHALATION (18:00)
[2023-04-26] MEDS: ALBUTEROL SULFATE NEB 2.5 MG/3 ML INH INHALATION (18:00)
--- NOTE | 2023-04-26 18:43 | PC.NURSE ---
Pt told RN that she is a drinker last drink was prior to arrival to ER. 24 ounce of Budlight. States typically drinks 1/2 case of beer a day & smokes marijuana
[2023-04-26 19:29] LABS: NT Pro B Type Natriuretic Pept 199 pg/mL (19.9-100)
[2023-04-26 19:52] LABS: Hematocrit 40.6 % (37.0-47.0); Hemoglobin 13.6 g/dL (12.0-15.0); Mean Corpuscular HGB Conc 33.5 g/dl (32-36); Mean Corpuscular Hemoglobin 37.8 pg (26-34); Mean Corpuscular Volume 112.8 fl (80-100); Red Cell Distribution Width 13.5 % (11.5-14.5)
[2023-04-26 19:54] LABS: Platelet Estimate Decreased (Adequate)
[2023-04-26 19:55] LABS: Influenza A QL RT-PCR Negative (Negative); Influenza B QL RT-PCR Negative (Negative); SARS-CoV-2 RNA PCR Negative (Negative)
[2023-04-26 19:55] LABS: Macrocytosis 1+ (NORMAL); Schistocytes None Seen (NORMAL)
[2023-04-26] MEDS: AZITHROMYCIN 500 MG/NS 250 ML 500 MG/250 ML BAG 250 MG IVPB (20:25)
[2023-04-26 21:18] LABS: Troponin I < 0.012 ng/mL (0.000-0.034)
== END 2023-04-26 21:39 | disposition left against medical advice (07) ==
PROVIDERS: Student in an Organized Health Care Education/Training Program; Emergency Provider Physician Assistant; PCP Family Medicine
DX: J44.1 Chronic obstructive pulmonary disease with (acute) exacerbation (principal); R07.9 Chest pain, unspecified; I10 Essential (primary) hypertension; F17.210 Nicotine dependence, cigarettes, uncomplicated; R94.31 Abnormal electrocardiogram [ECG] [EKG]
CPT/HCPCS: 36415; 36600; 71046; 71275; 74160; 80053; 83690; 83880; 84484; 85025; 85380; 85610; 85730; 87636; 93005; 94640; 96361; 96365; 96367; 99284; A9270; J0456; J0696; J7030; Q9967

== ENCOUNTER 2023-08-29 17:47 | Observation (INO) | payer OTHER, SELFPAY ==
[2023-08-29] VITALS (7 sets, daily range): BP systolic 91–103; BP diastolic 65–67; PULSE 98–123; RESP 12–17; O2SAT 93–97
--- NOTE | ~2023-08-29 | XR_ITS ---
Clinical Indication: Chest pain PA and lateral views of the chest: Comparison: 04/26/2023 Findings: The lungs are clear, without evidence of focal consolidation or pleural effusion. Cardiome diastinal silhouette is within normal limits. Bones and soft tissues are unremarkable. Impression: Normal chest. Reviewed, dictated and finalized at [facility]. GE DISPOSAL WORKER Impression: Normal chest.
--- NOTE | ~2023-08-29 | US_ITS ---
EXAMINATION: US venous doppler [facility] DATE: 08/30/2023 14:07 INDICATION: Shortness of breath. Elevated d-dimer. TECHNIQUE: Grayscale ultrasound images without and with compression and Doppler ultrasound images of the bilateral lower extremity veins were obtained. COMPARISON: None. FINDINGS: The visualized portions of right common femoral vein, profunda (deep) femoral vein, femoral vein, pop liteal vein, posterior tibial veins, peroneal veins and greater saphenous vein outflow are patent. The visualized portions of left common femoral vein, profunda femoral vein, femoral vein, popliteal v ein, posterior tibial veins, peroneal veins and greater saphenous vein outflow are patent. IMPRESSION: 1. No deep venous thrombosis in either lower limb. Reviewed, dictated and finalized at location A. ELECTRICAL TECHNICIAN
--- NOTE | ~2023-08-29 | CT_ITS ---
EXAMINATION: CTA chest PE protocol DATE: 08/30/2023 13:39 INDICATION: Shortness of breath. Elevated d-dimer. TECHNIQUE: Computed tomography angiography (CTA) of the chest was performed with 100 mL Omnipaque-350 intravenous contrast timed to evaluate the pulmonary arteries. Coronal maximum intensity projection 3D-reconstructions were created by the technologist. Automated exposure control and iterative reconst ruction technique were employed. Exam dose: 238.78 mGy-cm total exam DLP. COMPARISON: June 28, 2024 AP and lateral chest 04/26/2023 CTA chest abdomen pelvis FINDINGS: No evidence of pulmonary embolism. Aortic and great vessel calcifications. No thoracic aortic aneurysm. Coronary artery calcifications. Cardiomegaly. No pericardial or pleural effusion. No hilar or mediastinal mass lesion or lymphadenopathy. There are scattered patchy mild bilateral upper lobe and middle lobe infiltrates and mild left basila r atelectasis. There is prominent pericholecystic fluid collection. There is surface nodularity and steatosis of the liver. No suspicious osteolytic or osteoblastic lesions. IMPRESSION: No evidence of pulmonary embolism Scattered mild patchy bilateral upper lobe and middle lobe infiltrates and mild left basilar atelecta sis Cardiomegaly Hepatic steatosis Surface nodularity of the liver suggesting cirrhosis Prominent pericholecystic nonspecific fluid collection Reviewed, dictated and finalized at Location A. Reviewed, dictated and finalized at location B. ECTIONAL COOK IMPRESSION: No evidence of pulmonary embolism Scattered mild patchy bilateral upper lobe and middle lobe infiltrates and mild left basilar atelectasis Cardiomegaly Hepatic steatosis Surface nodularity of the liver suggesting cirrhosis Prominent pericholecystic nonspecific fluid collection
--- NOTE | 2023-08-29 17:49 | ECG_ITS ---
Measurements Intervals [place] Rate: 96 P: 53 NC: 164 QRS: -13 QRSD: 99 T: 51 QT: 359 QTc: 455 Interpretive Statements SINUS RHYTHM LEFTWARD AXIS BORDERLINE ECG COMPARED TO ECG 04/26/2023 17:07:45 NO SIGNIFICANT CHANGES Electronically Signed On 08-30-2023 8:38:43 JOGGLE PRESS OPERATOR by Betito Thrasher M.D.
[2023-08-29] MEDS: ASPIRIN 81 MG CHEWABLE TABLET 324 MG PO (18:54)
[2023-08-29 19:06] LABS: INR 1.2; Prothrombin Time 15.4 Seconds (11.1-14.7)
[2023-08-29 19:07] LABS: Partial Thromboplastin Time 47.4 SECONDS (22.3-36.8)
[2023-08-29 19:09] LABS: Alanine Aminotransferase 30 U/L (6-35); Albumin Level 3.6 g/dL (3.5-5.1); Alkaline Phosphatase 160 U/L (38-126); Anion Gap 8 mmol/L (8-16); Aspartate Amino Transferase 136 U/L (14-36); Bilirubin,Total 0.8 mg/dL (0.2-1.3); Blood Urea Nitrogen 2 mg/dL (7-17); Calcium 7.9 mg/dL (8.4-10.2); Carbon Dioxide 26 mmol/L (22-30); Chloride 98 mmol/L (98-107); Estimated CRCL calculation 89 ml/min; Estimated Glomerular Filt Rate > 60; Glucose 104 mg/dL (65-110); Lipase 56 U/L (23-300); Potassium 3.4 mmol/L (3.4-5.0); Sodium 132 mmol/L (137-145)
--- NOTE | 2023-08-29 19:18 | ED.CHESTPAIN ---
HPI - Chest Pain General Chief Complaint: Chest Pain Stated Complaint: Chest pain Time Seen by Provider: 08/29/23 18:17 History of Present Illness HPI narrative: Patient is a 48-year-old female with a history of COPD, hypertension presenting with shortness of breath and chest pain. Patient states that she has had intermittent chest pain for the last 10 days. She has been seen several times at [facility] and was told several days ago that she has pneumonia. States that she will not take any medication until she sees her PCP. States that she feels short of breath whenever she gets up and walks around. She still smokes about a pack of cigarettes per day. States that she has had intermittent chest pain that is worse with coughing. No fevers, abdominal pain, nausea vomiting, diarrhea, dysuria, hematuria. Related Data Home Medications Medication Instructions Recorded Confirmed amitriptyline 25 mg tablet 25 mg PO PRN 08/30/23 08/30/23 amlodipine 5 mg tablet 5 mg DAILY 08/30/23 08/30/23 cyclobenzaprine 10 mg tablet 10 mg PRN 08/30/23 08/30/23 folic acid 1 mg tablet 1 mg DAILY 08/30/23 08/30/23 ibuprofen 600 mg tablet 600 mg DAILY 08/30/23 08/30/23 Allergies Allergy/AdvReac Type Severity Reaction Status Date / Time adhesive tape AdvReac Other Verified 08/30/23 15:07 Sulfa (Sulfonamide AdvReac Headache Verified 08/30/23 15:07 Antibiotics) Review of Systems Review of Systems: All systems reviewed & are unremarkable except as noted in HPI and below PMFSH Past Medical History Medical History COPD (chronic obstructive pulmonary disease) D-dimer, elevated ETOH abuse Surgical History Surgical History No significant past surgical history Social History Social History Smoking packs per day: 1 Smoking cigarettes per day: 20.0 Years smoked: 37 Smoking pack-years: 37.00 Smoking status: Current every day smoker Tobacco type: cigarettes Alcohol intake: current Drinks per week: 84 Substance use: current Substance use type: marijuana Other substance usage details: 2 joints Last use: 08/29/23 Do You Feel Safe in your Home?: Yes Lack of Transportation: No Lack of Food: Sometimes True Current Housing: I Have Housing Concerned About Future Housing: No Difficulty Paying Gas/Electric Bills: YES Difficulty Paying for Meds: No Currently Unemployed: No Education: Decline to Answer Difficulty w/ Childcare or Family Care: No Spiritual care concerns: No Exam Narrative: GENERAL: Nontoxic, no acute distress HEAD: Normocephalic, atraumatic. EYES: PERRLA and EOMI. ENT: Grossly unremarkable NECK: Supple. CHEST: Diminished breath sounds bilaterally with scattered wheezing HEART: Regular rate and rhythm ABDOMEN: Soft, nontender, nondistended EXTREMITIES: Normal range of motion. No edema. SKIN: Warm, dry, no rash. NEURO: No focal deficits. Alert and oriented x3. PSYCH: Normal mood and affect. Course Vital Signs Vital signs: Vital Signs Pulse Rate 98 08/29/23 18:03 Pulse Oximetry 97 08/29/23 18:03 Oxygen Delivery Room Air 08/29/23 18:03 Temperature 98.0 F 08/30/23 16:00 Pulse Rate 119 H 08/30/23 16:00 Respiratory Rate 16 08/30/23 16:00 Blood Pressure 144/83 H 08/30/23 16:00 Pulse Oximetry 95 08/30/23 16:00 Oxygen Delivery Room Air 08/30/23 08:44 Oxygen Flow Rate 2 08/29/23 22:45 MDM - Chest Pain MDM Narrative Medical decision making narrative: 48-year-old female presenting with shortness of breath and chest pain for about 10 days. Exam remarkable for the above. She is extremely tight bilaterally. States that she was diagnosed with pneumonia several days ago but she has not taken any of the antibiotics. EKG per my interpretation shows normal sinus rhythm, no acute ischemic changes. Similar to prior. Patient i
[2023-08-29 19:19] LABS: Troponin I < 0.012 ng/mL (0.000-0.034)
[2023-08-29] MEDS: methylPREDNISolone SOD SUCC 125 MG VIAL IV PUSH (19:28)
[2023-08-29] MEDS: SODIUM CHLORIDE 0.9% IV 1,000 ML 999 ML IV CONT ×2 (19:29→21:27)
[2023-08-29] MEDS: ALBUTEROL SULFATE NEB 2.5 MG/3 ML INH 10 MG INHALATION (19:45)
[2023-08-29 20:18] LABS: Basophils Percent Auto 0.3 % (0.2-1.2); Eosinophils Absolute Auto 0.1 K/mm3 (0-0.3); Eosinophils Percent Auto 1.1 % (0-4.4); Hematocrit 36.4 % (37.0-47.0); Immature Granulocyte Absolute 0.04 K/mm3 (0.00-0.031); Immature Granulocyte Percent A 0.5 % (0-0.5); Lymphocytes Percent Auto 43.8 % (18.3-44.2); Mean Corpuscular HGB Conc 35.7 g/dl (32-36); Mean Corpuscular Volume 109.3 fl (80-100); Mean Platelet Volume 9.8 fl (7.4-10.4); Monocytes Absolute Auto 0.5 K/mm3 (0.1-0.6); Monocytes Percent Auto 7.4 % (2.6-8.5); Neutrophils Absolute Auto 3.4 K/mm3 (1.3-6.7); Neutrophils Percent Auto 46.9 % (45.5-73.1); Red Blood Count 3.33 M/mm3 (4.2-5.4); Red Cell Distribution Width 13.2 % (11.5-14.5); White Blood Count 7.3 K/mm3 (4.5-10.0)
[2023-08-29 20:20] LABS: Influenza A QL RT-PCR Negative (Negative); Influenza B QL RT-PCR Negative (Negative); RSV RNA, RT-PCR Negative (Negative); SARS-CoV-2 RNA PCR Negative (Negative)
[2023-08-29 20:32] LABS: Platelet Count Result 116 k/mm3 (150-375)
[2023-08-29 20:33] LABS: Macrocytosis 1+ (NORMAL); Platelet Estimate Decreased (Adequate); Schistocytes None Seen (NORMAL)
[2023-08-29] MEDS: ALBUTEROL SULFATE NEB 2.5 MG/3 ML INH 5 MG INHALATION (21:23)
[2023-08-29] MEDS: IPRATROPIUM BR 0.02% INH SOLN 0.5 MG/2.5 ML VIAL INHALATION (21:24)
[2023-08-29] MEDS: AZITHROMYCIN 500 MG/NS 250 ML 500 MG/250 ML BAG 250 MG IVPB (21:27)
[2023-08-29 21:28] LABS: Troponin I < 0.012 ng/mL (0.000-0.034)
[2023-08-30] VITALS (25 sets, daily range): BP systolic 110–156; BP diastolic 72–92; PULSE 98–124; RESP 12–28; TEMP 36.7–37; O2SAT 92–98
[2023-08-30] MEDS: methylPREDNISolone SOD SUCC 125 MG VIAL 60 MG IV PUSH ×5 (00:20→23:47)
[2023-08-30 01:09] LABS: Troponin I < 0.012 ng/mL (0.000-0.034)
[2023-08-30] MEDS: ALBUTEROL SULFATE NEB 2.5 MG/3 ML INH INHALATION ×4 (01:31→20:28)
[2023-08-30] MEDS: IPRATROPIUM BR 0.02% INH SOLN 0.5 MG/2.5 ML VIAL INHALATION ×4 (01:32→20:28)
--- NOTE | 2023-08-30 05:24 | PM.IMHP ---
H&P: HPI History of Present Illness Date/Time: 08/30/23 05:24 Chief Complaint: Shortness of breath Narrative: This is a 48-year-old female with past medical history significant for COPD/emphysema, tobacco dependence, patient smokes 1 pack of cigarettes daily, presents to the emergency room due to worsening shortness of breath for the last 2 weeks or so, poor per orally intake, poor appetite cough mostly dry but productive at times of clear phlegm, denies any fevers, chills, rigors, fevers. Patient requires supplemental oxygen in emergency room. Patient tested negative for influenza type A influenza type B RSV and COVID has been admitted for further evaluation management and treatment. Clinical Indication: Chest pain ?PA and lateral views of the chest: Comparison: 04/26/2023 Findings: The lungs are clear, without evidence of focal consolidation or pleural effusion.? Cardiomediastinal silhouette is within normal limits. Bones and soft tissues are unremarkable. ? Impression: ? Normal chest. Review of Systems Review of Systems: Shortness of breath Constitutional: Constitutional: Denies chills, Denies fever(s), Denies night sweats and Reports poor appetite Eyes: Eyes: Denies change in vision ENT: Denies dysphagia and Denies odynophagia Cardiovascular: Cardiovascular: Denies chest pain, Denies radiating jaw, neck or arm pain and Denies palpitations Respiratory: Respiratory: Denies chest congestion, Reports cough, Reports dyspnea, Reports dyspnea on exertion and Reports wheezing Gastrointestinal: Gastrointestinal: Denies nausea and Denies vomiting Genitourinary: Genitourinary: Denies dysuria Musculoskeletal: Musculoskeletal: Reports muscle weakness Integumentary/Breasts: Skin/Breast: Denies rash Neurologic: Denies focal weakness and Denies Sensory deficit (Neuro) Psychiatric: Psychiatric: Reports no additional psychiatric complaints and Reports as per HPI Endocrine: Endocrine: Denies cold intolerance, Denies fatigue, Denies flushing, Denies heat intolerance, Denies polyphagia, Denies polydipsia and Denies palpitations Hematologic/Lymphatic: Hematologic/Lymphatic: Reports no additional hematologic/lymphatic complaints and Reports as per HPI Allergic/Immunologic: Allergic/Immunologic: Reports no additional allergic/immunologic complaints and Reports as per HPI PMFSH Past Medical History Medical History COPD (chronic obstructive pulmonary disease) Surgical History Surgical History No significant past surgical history Social History Social History Smoking status: Current every day smoker Alcohol intake: never Substance use: current Substance use type: marijuana Meds Home Medications and Allergies Home Medications Medication Instructions Recorded Confirmed Type albuterol sulfate 90 mcg/actuation 2 inh inhalation Q4-6H PRN 02/10/23 Rx breath activated powder inhaler shortness of breath or wheezing #1 ea doxycycline monohydrate 100 mg 100 mg PO BID #14 caps 04/26/23 Rx capsule Allergies Allergy/AdvReac Type Severity Reaction Status Date / Time adhesive tape AdvReac Other Verified 02/10/23 15:40 Sulfa (Sulfonamide AdvReac Headache Verified 02/10/23 13:18 Antibiotics) Vital Signs Vital Signs - 24 hr 08/29/23 18:03 08/29/23 18:03 08/29/23 19:46 Pulse Rate 98 98 Respiratory Rate 17 Blood Pressure Pulse Oximetry 97 Oxygen Delivery Room Air Oxygen Flow Rate 08/29/23 21:11 08/29/23 21:24 08/29/23 21:28 Pulse Rate 123 H 115 H 115 H Respiratory Rate 13 16 16 Blood Pressure 103/65 Pulse Oximetry 97 Oxygen Delivery Room Air Oxygen Flow Rate 08/29/23 22:45 08/29/23 23:00 08/30/23 00:21 Pulse Rate 115 H 101 H Respiratory Rate 12 14 Blood Pressure 91/
--- NOTE | 2023-08-30 06:50 | PC.NURSE ---
This RN went into patient room and patient upset stating she wants ice cold water. Patient has visible tremors and is agitated. States she called on her call light several times since 0300 and has been unhooking herself to use the bathroom. These activities were never witnessed by staff. Patient states she has a history of alcohol withdrawals and that she typically drinks 120-150 ounces of beer daily.
--- NOTE | 2023-08-30 07:03 | PC.NURSE ---
Patient taken off oxygen and placed on room air at 0648. Patient's current oxygen saturation is 94% on room air.
--- NOTE | 2023-08-30 07:20 | PC.NURSE ---
Called Dr. Carroll and he states he is not the hospitalist taking over but he will put a note in.
--- NOTE | 2023-08-30 07:46 | PC.NURSE ---
Breakfast tray ordered
[2023-08-30] MEDS: LORazepam INJ (*CRX) 2 MG/ML VIAL 1 MG IV PUSH (08:41)
[2023-08-30 08:42] LABS: Ethanol < 10 mg/dL (<10)
[2023-08-30 09:15] LABS: D Dimer 10.32 ug/mL (<0.48)
[2023-08-30] MEDS: amLODIPine BESYLATE 5 MG TABLET BY MOUTH (10:19)
[2023-08-30] MEDS: FOLIC ACID 1 MG TABLET BY MOUTH (10:20)
[2023-08-30] MEDS: IBUPROFEN 600 MG TABLET BY MOUTH (10:20)
[2023-08-30] MEDS: ENOXAPARIN 40 MG/0.4 ML SYRINGE SUB-Q (10:20)
[2023-08-30] MEDS: PANTOPRAZOLE SODIUM IV 40 MG VIAL IV PUSH (10:20)
[2023-08-30] MEDS: NICOTINE (*PBKC) 21 MG PATCH 1 PATCH TRANSDERM (11:40)
[2023-08-30 11:49] LABS: Amphetamine Screen Urine Negative (Negative); Barbiturate Screen Urine Negative (Negative); Benzodiazepines Screen Urine Positive (Negative); Cannabinoid Screen Urine Positive (Negative); Cocaine Screen Urine Negative (Negative); Methadone Screen Urine Negative (Negative); Opiate Screen Urine Negative (Negative); Phencyclidine Screen Urine Negative (Negative)
--- NOTE | 2023-08-30 13:41 | PC.NURSE ---
pt in CT at this time. pt will be taken to room 312 when back in room.
--- NOTE | 2023-08-30 14:20 | PM.IMPN ---
Progress Note: A&P Assessment and Plan (1) COPD exacerbation: Code(s): J44.1 - Chronic obstructive pulmonary disease with (acute) exacerbation Status: Acute Assessment and Plan: Admit to regular medical floor Breathing treatments Systemic steroids No change in sputum quality Continue to monitor 08/30: No respiratory distress note at time of assessment See off of O2 at time of assessment oxygen saturation 97% Continue IV steroids, Continue breathing treatments Monitor respiratory status and oxygen saturation (2) Respiratory failure with hypoxia: Code(s): J96.91 - Respiratory failure, unspecified with hypoxia Status: Acute Assessment and Plan: On supplemental oxygen by nasal cannula 08/30:Seen without supplemental O2 at time of assessment. No acute respiratory distress. Supplemental O2 as needed (3) Tobacco dependence: Code(s): F17.200 - Nicotine dependence, unspecified, uncomplicated Status: Acute Assessment and Plan: Nicotine patch as needed 08/30: Tobacco cessattion education provided. Spent greater than 10 minutes discussing benefits of tobacco cessation. Nicotine patch provided (4) ETOH abuse: Code(s): F10.10 - Alcohol abuse, uncomplicated Status: Acute Assessment and Plan: Patient admits to alcohol abuse 100-150 oz of beer/ day Last drink at before 5 on 08/29 per patient statement Tremors noted on assessment CWIA protocal Ativan q4hr PRN withdraw symptoms Monitor (5) D-dimer, elevated: Code(s): R79.89 - Other specified abnormal findings of blood chemistry Status: Acute Assessment and Plan: Hx of elevated D-Dimer on previous visit- Patient left AMA before further work-up Today D-Dimer 10.32. CTA- PE/ and Doppler of BLE ordered to R/O potential clots Continue to monitor (6) Atypical chest pain: Code(s): R07.89 - Other chest pain Status: Acute Assessment and Plan: Denies chest pain at this time EKG in ED Sinus Rhythm Troponins negative in ED Time Spent With Patient Time with patient: 15 - 25 minutes Subjective Date/time seen: 08/30/23 0830 Interval history: 48 year old female examined at bedside today in interval assessment as presented to ED with concerns for shortness of breath. She stated she was recently seen at [facility] and told she had COPD or pneumonia. She expressed that her shortness of breath was getting progressively worse, however when she was attempting to watch the football game last night she began to have chest pain which brought her to the ED. She was eventually admitted for COPD exacerbation and atypical chest pain. She expressed that she is a current smoker or cigarettes and marijuana. She also stated she is a current drinker and consumes 100-150oz of beer each day. Last drink was yesterday at 5ish. She stated that she has been trying to reduce the amount that she drinks each day, however there has not been much recent change. She was noted to have tremor, when questioned on this finding- she stated its the withdraws. CWIA protocol in place and medications added appropriately. Due to patients ongoing respiratory issues, and after chart review, patient was noted to have previously elevated D-dimer. Will order new D-Dimer, if elevated order CTA and BLE dopplers for concerns of potential blood clots. Patient questions were answered to satisfaction. Review of Systems Review of Systems: All systems reviewed & are unremarkable except as noted in HPI and below Exam Narrative: GENERAL:? Nontoxic, alert, no acute distress HEENT: Normocephalic, atraumaticPERRLA and EOMI. NECK: Supple. FROM CHEST:? Diminished breath sounds bilaterally, normal respiratory effort, able to speak in full sentences HEART: Regular rate and rhythm ABDOMEN: Soft, nontender, nondistended EXTREMITIES: FROM, moves all extremities.? No edema. SKIN: Warm, dry, no rash. NEURO: No focal de
--- NOTE | 2023-08-30 14:53 | ADMGEN ---
This patient, Radha Mendoza, was admitted to [facility] S[facility] Room 312-01. Patient/family oriented to hospital policies and general routines including ID bracelet, bed and alarms, visiting hours, pain management, procedures, bathroom and other care routines, personal items, smoking policy, room service/diet, and visiting hours. Information on how to activate the Rapid Response Team has been discussed. Patient/Family are encouraged to report perceived risks to care and to ask questions if they do not understand what they are told or what they should do.
[2023-08-30 17:56] LABS: Glucose Point of Care 331 mg/dl (65-105)
[2023-08-30] MEDS: LORazepam INJ (*CRX) 2 MG/ML VIAL IV PUSH (18:14)
[2023-08-30] MEDS: INSULIN ASPART (*BKC) 100 UNITS/ML SUB-Q ×2 (21:00→23:50)
[2023-08-30 21:08] LABS: Glucose Point of Care 355 mg/dl (65-105)
[2023-08-30 21:47] LABS: Hemoglobin A1C 5.2 % (<5.7)
[2023-08-31] VITALS (7 sets, daily range): BP systolic 129–138; BP diastolic 76–82; PULSE 94–116; RESP 18–20; TEMP 36.8–37.3; O2SAT 93–101
[2023-08-31] MEDS: LORazepam INJ (*CRX) 2 MG/ML VIAL IV PUSH
[2023-08-31 00:05] LABS: Glucose Point of Care 275 mg/dl (65-105)
[2023-08-31] MEDS: methylPREDNISolone SOD SUCC 125 MG VIAL 60 MG IV PUSH ×2 (05:32→12:12)
[2023-08-31] MEDS: INSULIN ASPART (*BKC) 100 UNITS/ML SUB-Q ×2 (05:35→12:12)
[2023-08-31 05:42] LABS: Glucose Point of Care 225 mg/dl (65-105)
[2023-08-31] MEDS: ALBUTEROL SULFATE NEB 2.5 MG/3 ML INH INHALATION (07:46)
[2023-08-31] MEDS: IPRATROPIUM BR 0.02% INH SOLN 0.5 MG/2.5 ML VIAL INHALATION (07:46)
[2023-08-31 07:57] LABS: Alanine Aminotransferase 34 U/L (6-35); Albumin Level 4.2 g/dL (3.5-5.1); Alkaline Phosphatase 209 U/L (38-126); Anion Gap 5 mmol/L (8-16); Aspartate Amino Transferase 81 U/L (14-36); Bilirubin,Total 1.3 mg/dL (0.2-1.3); Blood Urea Nitrogen 5 mg/dL (7-17); Calcium 9.4 mg/dL (8.4-10.2); Carbon Dioxide 33 mmol/L (22-30); Chloride 99 mmol/L (98-107); Estimated CRCL calculation 138 ml/min; Estimated Glomerular Filt Rate > 60; Glucose 204 mg/dL (65-110); Lipase 63 U/L (23-300); Potassium 3.1 mmol/L (3.4-5.0); Sodium 137 mmol/L (137-145)
[2023-08-31 08:49] LABS: Magnesium 2.5 mg/dL (1.6-2.3)
[2023-08-31 09:04] LABS: Hematocrit 44.7 % (37.0-47.0); Hemoglobin 14.8 g/dL (12.0-15.0); Immature Platelet Fraction Pct 6.3 % (0.9-11.2); Mean Corpuscular HGB Conc 33.1 g/dl (32-36); Mean Corpuscular Hemoglobin 37.3 pg (26-34); Mean Corpuscular Volume 112.6 fl (80-100); Mean Platelet Volume 10.5 fl (7.4-10.4); Platelet Count Result 92 k/mm3 (150-375); Red Blood Count 3.97 M/mm3 (4.2-5.4); Red Cell Distribution Width 13.2 % (11.5-14.5); White Blood Count 10.4 K/mm3 (4.5-10.0)
[2023-08-31] MEDS: FOLIC ACID 1 MG TABLET BY MOUTH (09:37)
[2023-08-31] MEDS: amLODIPine BESYLATE 5 MG TABLET BY MOUTH (09:37)
[2023-08-31] MEDS: ENOXAPARIN 40 MG/0.4 ML SYRINGE SUB-Q (09:37)
[2023-08-31] MEDS: POTASSIUM CHLORIDE 20 MEQ ER TABLET 40 MEQ PO (09:37)
[2023-08-31] MEDS: IBUPROFEN 600 MG TABLET BY MOUTH (09:37)
[2023-08-31] MEDS: PANTOPRAZOLE SODIUM IV 40 MG VIAL IV PUSH (09:37)
[2023-08-31] MEDS: LORazepam (*CRX) 1 MG TABLET PO (09:40)
[2023-08-31 11:14] LABS: Glucose Point of Care 287 mg/dl (65-105)
--- NOTE | 2023-08-31 12:34 | P.PNIM_ITS ---
Progress Note: A&P Assessment and Plan (1) COPD exacerbation: Code(s): J44.1 - Chronic obstructive pulmonary disease with (acute) exacerbation Status: Acute Assessment and Plan: Admit to regular medical floor Breathing treatments Systemic steroids No change in sputum quality Continue to monitor * 08/30: No respiratory distress note at time of assessment * See off of O2 at time of assessment oxygen saturation 97% * Continue IV steroids, Continue breathing treatments * Monitor respiratory status and oxygen saturation * 08/31: No respiratory distress notes at time of assessment * Patient has remained off O2 * Continue current treatment * Monitor respiratory status and oxygen saturation (2) Respiratory failure with hypoxia: Code(s): J96.91 - Respiratory failure, unspecified with hypoxia Status: Acute Assessment and Plan: On supplemental oxygen by nasal cannula * 08/30:Seen without supplemental O2 at time of assessment. No acute respiratory distress. * Supplemental O2 as needed * 08/31: Continue current management (3) Tobacco dependence: Code(s): F17.200 - Nicotine dependence, unspecified, uncomplicated Status: Acute Assessment and Plan: Nicotine patch as needed * 08/30: Tobacco cessattion education provided. Spent greater than 10 minutes discussing benefits of tobacco cessation. * Nicotine patch provided (4) ETOH abuse: Code(s): F10.10 - Alcohol abuse, uncomplicated Status: Acute Assessment and Plan: * Patient admits to alcohol abuse 100-150 oz of beer/ day * Last drink at before 5 on 08/29 per patient statement * Tremors noted on assessment * CIWA protocol * Ativan q4hr PRN withdraw symptoms * Monitor * 08/31: CIWA score this am at 5 * Patient exhibits anxiety and tremors * Maintain protocol (5) D-dimer, elevated: Code(s): R79.89 - Other specified abnormal findings of blood chemistry Status: Acute Assessment and Plan: * Hx of elevated D-Dimer on previous visit- Patient left AMA before further work-up * Today D-Dimer 10.32. * CTA- PE/ and Doppler of BLE ordered to R/O potential clots * Continue to monitor * 08/31 * CTA Chest completed- radiologist noted, no evidence of pulmonary embolism. * BLE venous dopplers completed- study noted no deep venous thrombosis in either lower limb * Hx of elevation- Consider autoimmune disorders- if patient agreeable to testing (6) Atypical chest pain: Code(s): R07.89 - Other chest pain Status: Acute Assessment and Plan: * Denies chest pain at this time * EKG in ED Sinus Rhythm * Troponins negative in ED Time Spent With Patient Time with patient: 15 - 25 minutes Subjective Date/time seen: 08/31/23 0930 Interval history: 48 year old female examined at bedside today in interval assessment as presented to ED with concerns for shortness of breath. She stated she was recently seen at [facility] and told she had COPD or pneumonia. She expressed that her shortness of breath was getting progressively worse, however when she was attempting to watch the football game last night she began to have chest pain which brought her to the ED. She was eventually admitted for COPD exacerbation and atypical chest pain. She expressed that she is a current smoker or cigarettes and marijuana. She also stated she is a current drinker and consumes 100-150oz of beer each day. Last drink was yesterday at 5ish. She stated that she has been trying to reduce the amount that she drinks each day, however there has
--- NOTE | 2023-08-31 12:34 | PM.IMPN ---
Progress Note: A&P Assessment and Plan (1) COPD exacerbation: Code(s): J44.1 - Chronic obstructive pulmonary disease with (acute) exacerbation Status: Acute Assessment and Plan: Admit to regular medical floor Breathing treatments Systemic steroids No change in sputum quality Continue to monitor 08/30: No respiratory distress note at time of assessment See off of O2 at time of assessment oxygen saturation 97% Continue IV steroids, Continue breathing treatments Monitor respiratory status and oxygen saturation 08/31: No respiratory distress notes at time of assessment Patient has remained off O2 Continue current treatment Monitor respiratory status and oxygen saturation (2) Respiratory failure with hypoxia: Code(s): J96.91 - Respiratory failure, unspecified with hypoxia Status: Acute Assessment and Plan: On supplemental oxygen by nasal cannula 08/30:Seen without supplemental O2 at time of assessment. No acute respiratory distress. Supplemental O2 as needed 08/31: Continue current management (3) Tobacco dependence: Code(s): F17.200 - Nicotine dependence, unspecified, uncomplicated Status: Acute Assessment and Plan: Nicotine patch as needed 08/30: Tobacco cessattion education provided. Spent greater than 10 minutes discussing benefits of tobacco cessation. Nicotine patch provided (4) ETOH abuse: Code(s): F10.10 - Alcohol abuse, uncomplicated Status: Acute Assessment and Plan: Patient admits to alcohol abuse 100-150 oz of beer/ day Last drink at before 5 on 08/29 per patient statement Tremors noted on assessment CIWA protocol Ativan q4hr PRN withdraw symptoms Monitor 08/31: CIWA score this am at 5 Patient exhibits anxiety and tremors Maintain protocol (5) D-dimer, elevated: Code(s): R79.89 - Other specified abnormal findings of blood chemistry Status: Acute Assessment and Plan: Hx of elevated D-Dimer on previous visit- Patient left AMA before further work-up Today D-Dimer 10.32. CTA- PE/ and Doppler of BLE ordered to R/O potential clots Continue to monitor 08/31 CTA Chest completed- radiologist noted, no evidence of pulmonary embolism. BLE venous dopplers completed- study noted no deep venous thrombosis in either lower limb Hx of elevation- Consider autoimmune disorders- if patient agreeable to testing (6) Atypical chest pain: Code(s): R07.89 - Other chest pain Status: Acute Assessment and Plan: Denies chest pain at this time EKG in ED Sinus Rhythm Troponins negative in ED Time Spent With Patient Time with patient: 15 - 25 minutes Subjective Date/time seen: 08/31/23 0930 Interval history: 48 year old female examined at bedside today in interval assessment as presented to ED with concerns for shortness of breath. She stated she was recently seen at [facility] [place] and told she had COPD or pneumonia. She expressed that her shortness of breath was getting progressively worse, however when she was attempting to watch the football game last night she began to have chest pain which brought her to the ED. She was eventually admitted for COPD exacerbation and atypical chest pain. She expressed that she is a current smoker or cigarettes and marijuana. She also stated she is a current drinker and consumes 100-150oz of beer each day. Last drink was yesterday at 5ish. She stated that she has been trying to reduce the amount that she drinks each day, however there has not been much recent change. She was noted to have tremor, when questioned on this finding- she stated its the withdraws. CWIA protocol in place and medications added appropriately. Due to patients ongoing respiratory issues, and after chart review, patient was noted to have previously elevated D-dimer. Will order new D-Dimer, if elevated order CTA and BLE dopplers for concerns of potential blood clots. Patient questions w
--- NOTE | 2023-08-31 13:45 | PC.NURSE ---
Pt left hospital AMA. Provider here previously. Educated pt on risks of leaving AMA up to possible . Pt verbalized understanding. IV removed. Pt ambulatory to private car accompanied by her mother.
== END 2023-08-31 13:45 ==
LOC: ANHED 21:14 → ANH3MEDSUR 08-30 10:41
PROVIDERS: Internal Medicine; Nurse Practitioner Family; Admitting Provider Internal Medicine; Emergency Provider Emergency Medicine; PCP Family Medicine; Visit Provider Internal Medicine
DX: J44.1 Chronic obstructive pulmonary disease with (acute) exacerbation (principal); J96.91 Respiratory failure, unspecified with hypoxia; R07.89 Other chest pain; I11.9 Hypertensive heart disease without heart failure; R79.89 Other specified abnormal findings of blood chemistry; R94.31 Abnormal electrocardiogram [ECG] [EKG]; K76.0 Fatty (change of) liver, not elsewhere classified; Z20.822 Contact with and (suspected) exposure to COVID-19; F17.210 Nicotine dependence, cigarettes, uncomplicated; F10.10 Alcohol abuse, uncomplicated; F12.90 Cannabis use, unspecified, uncomplicated; Y90.0 Blood alcohol level of less than 20 mg/100 ml; Z79.1 Long term (current) use of non-steroidal anti-inflammatories (NSAID); Z79.51 Long term (current) use of inhaled steroids; Z79.899 Other long term (current) drug therapy
CPT/HCPCS: 36415; 71046; 71275; 80053; 80307; 82248; 82948; 83036; 83690; 83735; 84484; 85025; 85027; 85055; 85380; 85610; 85730; 87637; 93005; 93970; 94640; 96361; 96365; 96372; 96374; 96375; 96376; 99285; A9270; C9113; G0378; G0379; J0456; J1650; J1815; J2060; J2930; J7030; Q9967

== ENCOUNTER 2023-09-12 20:09 | Emergency (ER) | payer OTHER, SELFPAY ==
--- NOTE | 2023-09-12 20:15 | ECG_ITS ---
Measurements Intervals [place] Rate: 88 P: 61 NH: 162 QRS: -25 QRSD: 90 T: 61 QT: 389 QTc: 472 Interpretive Statements SINUS RHYTHM POOR R-WAVE PROGRESSION LEFTWARD AXIS BORDERLINE ECG COMPARED TO ECG 08/29/2023 17:53:55 NO SIGNIFICANT CHANGES Electronically Signed On 09-13-2023 7:23:54 [employer] by Judd Cagle M.D.
[2023-09-12 20:17] VITALS: BP 91/66; PULSE 98; RESP 20; TEMP 36.3; O2SAT 92
[2023-09-12 20:41] LABS: Appearance Urine Clear (Clear); Bilirubin Urine Negative (Negative); Blood Urine Negative (Negative); Color Urine Yellow (Yellow); Glucose Urine UA Negative (Negative); Ketones Urine Negative (Negative); Leukocyte Esterase Ur Negative LEU/UL (Negative); Nitrate Urine Negative (Negative); Protein Urine Negative (Negative); Specific Grav Ur 1.004 (1.001-1.035); Urobilinogen Urine 0.2 mg/dL (<2.0)
[2023-09-12 20:44] LABS: Add Urine Microscopic? NO
--- NOTE | 2023-09-12 21:56 | PC.NURSE ---
Patient walked up to triage area and stated go ahead and take me off your list . Patient was educated that we take patients back in order of severity. Patient then stated well go ahead and take me off your list . Patient ambulated with a steady gait out of the emergency room.
== END 2023-09-12 21:56 | disposition left against medical advice (07) ==
PROVIDERS: Emergency Provider Emergency Medicine; PCP Family Medicine
DX: R06.02 Shortness of breath (principal)
CPT/HCPCS: 81003; 93005; 99199

== ENCOUNTER 2023-10-23 20:11 | Emergency (ER) | payer OTHER, SELFPAY ==
[2023-10-23] VITALS (9 sets, daily range): BP systolic 96–116; BP diastolic 65–79; PULSE 88–100; RESP 12–22; TEMP 36.7; O2SAT 85–96
--- NOTE | ~2023-10-23 | CT_ITS ---
EXAMINATION: CTA chest PE protocol DATE: 10/24/2023 00:03 INDICATION: Shortness of breath. Hypoxia. History of COPD. TECHNIQUE: Computed tomography angiography (CTA) of the chest was performed with 100 mL Omnipaque-350 intravenous contrast timed to evaluate the pulmonary arteries. Coronal maximum intensity projection 3D-reconstructions were created by the technologist. Automated exposure control and iterative reconst ruction technique were employed. Exam dose: 196.98 mGy-cm total exam DLP. COMPARISON: October 23, 2023 PA and lateral chest August 30, 2023 CT pulmonary scan 05/06/2023 CTA chest abdomen and pelvis FINDINGS: There is diagnostic contrast enhancement of the pulmonary arteries and no evidence of pulmo nary embolism. No thoracic aortic aneurysm or dissection. No hilar or mediastinal mass lesion or lymphadenopathy. Heart size is within normal limits. Coronary artery calcifications. No pericardial or pleural effusio n. Mild infiltrate or atelectasis in both dependent lower lobes. Smaller atelectatic middle lobe. Surface nodularity of the liver suggests cirrhosis. Normal splenic size. IMPRESSION: No evidence of pulmonary embolism Mild infiltrate or atelectasis in both dependent lower lobes, right greater than left Small or atelectatic middle lobe, chronic since August 30, 2023, improved since 05/06/2023 Reviewed, dictated and finalized at [facility]. Reviewed, dictated and finalized at [facility]. IMPRESSION: No evidence of pulmonary embolism Mild infiltrate or atelectasis in both dependent lower lobes, right greater leeroy n left Small or atelectatic middle lobe, chronic since August 30, 2023, improved sin ce 05/06/2023
--- NOTE | ~2023-10-23 | XR_ITS ---
EXAMINATION: XR chest 2V Exam Date/Time: 10/23/2023 21:15 CDT HISTORY: Chest pain, SOB Comparison: 08/29/2023. RESULT: Lines, tubes, and devices: None. Lungs and pleura: Streaky bibasilar scar/atelectasis, otherwise clear. Cardiomediastinal silhouette: Stable. Other: No acute osseous or upper abdominal finding. IMPRESSION: No acute cardiopulmonary process. Reviewed, dictated and finalized at [facility].
--- NOTE | 2023-10-23 20:22 | ECG_ITS ---
Measurements Intervals [place] Rate: 83 P: 59 ID: [id number] QRS: -33 QRSD: 94 T: 58 QT: 382 QTc: 421 Interpretive Statements SINUS RHYTHM LEFT AXIS DEVIATION INCOMPLETE RIGHT BUNDLE BRANCH BLOCK [90+ ms QRS DURATION, TERMINAL R INV1/V2, 40+ ms s IN I/AVL/V4/V5/V6] ABNORMAL ECG SEE SCANNED COPY FOR SIGNATURE MTDD
[2023-10-23 20:41] LABS: Alanine Aminotransferase 34 U/L (6-35); Albumin Level 4.1 g/dL (3.5-5.1); Alkaline Phosphatase 244 U/L (38-126); Anion Gap 6 mmol/L (4-12); Aspartate Amino Transferase 131 U/L (14-36); Bilirubin,Total 0.9 mg/dL (0.2-1.3); Blood Urea Nitrogen 2 mg/dL (7-17); Calcium 8.4 mg/dL (8.4-10.2); Carbon Dioxide 31 mmol/L (22-30); Chloride 94 mmol/L (98-107); Estimated CRCL calculation 108 ml/min; Estimated Glomerular Filt Rate > 60; Glucose 138 mg/dL (65-110); Lipase 56 U/L (23-300); Potassium 5.4 mmol/L (3.4-5.0); Sodium 131 mmol/L (137-145)
[2023-10-23 20:46] LABS: INR 1.1; Prothrombin Time 15.3 Seconds (11.1-14.7)
[2023-10-23 20:47] LABS: Partial Thromboplastin Time 49.4 Seconds (22.3-36.8)
[2023-10-23 20:52] LABS: Troponin I < 0.012 ng/mL (0.000-0.034)
--- NOTE | 2023-10-23 21:05 | ED.GENADULT ---
HPI - General Adult General Chief complaint: Shortness of Breath/Dyspnea Stated complaint: SOB, swollen ankles Time Seen by Provider: 10/23/23 20:36 History of Present Illness HPI narrative: PATIENT IS A 48-YEAR-OLD FEMALE WHO PRESENTS TO THE EMERGENCY DEPARTMENT THIS EVENING COMPLAINING OF SHORTNESS OF BREATH, LIGHTHEADEDNESS, NAUSEA, VOMITING, DIARRHEA AND GENERAL FATIGUE. PATIENT STATES THAT HER DOCTOR RECENTLY TOOK HER OFF OF HER AMLODIPINE AND STARTED HER ON METOPROLOL 25 MG DUE TO LOWER EXTREMITY SWELLING. PATIENT STATES THAT THIS IS HER 3RD DAY TAKING THE METOPROLOL AND 3RD DAY IT TAKING A WATER PILL, FUROSEMIDE 20 MG FOR HER LOWER EXTREMITY SWELLING. SHE STATES THAT SHE WAS SITTING DOWN GOT UP AND FELT LIGHTHEADED EARLIER TODAY, OTHERWISE DENIES ANY ADDITIONAL SYMPTOMS. PATIENT DENIES ANY SICK CONTACTS EXPOSURE AND DENIES ANY RECENT URI SYMPTOMS, ANY FEVERS OR CHILLS. SHE IS CURRENTLY DENYING ANY CHEST. THERE ARE NO OTHER MODIFYING, ALLEVIATING, OR PRECIPITATING FACTORS AT THIS TIME. Related Data Home Medications Medication Instructions Recorded Confirmed amitriptyline 25 mg tablet 25 mg PO PRN 08/30/23 08/30/23 amlodipine 5 mg tablet 5 mg DAILY 08/30/23 08/30/23 cyclobenzaprine 10 mg tablet 10 mg PRN 08/30/23 08/30/23 folic acid 1 mg tablet 1 mg DAILY 08/30/23 08/30/23 ibuprofen 600 mg tablet 600 mg DAILY 08/30/23 08/30/23 bupropion HCl (smoking deter) 150 mg PO 10/23/23 mg tablet,12 hr sustained-release(smoking deterrent) furosemide 20 mg tablet mg 10/23/23 metoprolol succinate 25 mg mg PO 10/23/23 tablet,extended release 24 hr Allergies Allergy/AdvReac Type Severity Reaction Status Date / Time adhesive tape AdvReac Other Verified 10/23/23 20:30 Sulfa (Sulfonamide AdvReac Headache Verified 10/23/23 20:30 Antibiotics) Review of Systems Review of Systems: All systems are reviewed and are negative unless stated otherwise in the HPI. [facility] Past Medical History Medical History COPD (chronic obstructive pulmonary disease) D-dimer, elevated ETOH abuse Surgical History Surgical History No significant past surgical history Social History Social History Smoking packs per day: 1 Smoking cigarettes per day: 20.0 Years smoked: 37 Smoking pack-years: 37.00 Smoking status: Current every day smoker Tobacco type: cigarettes Alcohol intake: current Drinks per week: 84 Substance use: current Substance use type: marijuana Other substance usage details: 2 joints Last use: 08/29/23 Do You Feel Safe in your Home?: Yes Lack of Transportation: No Lack of Food: Sometimes True Current Housing: I Have Housing Concerned About Future Housing: No Difficulty Paying Gas/Electric Bills: YES Difficulty Paying for Meds: No Currently Unemployed: No Education: Decline to Answer Difficulty w/ Childcare or Family Care: No Spiritual care concerns: No Exam Narrative: General: Alert, awake, afebrile, in no acute distress. HEENT: PERRL, no rhinorrhea, no post nasal drip, oropharynx clear. Neck: Trachea midline, no JVD, no lymphadenopathy. Cardiovascular: Regular rate and rhythm, no murmurs, rubs or gallops, mild 1+ pitting edema to left foot, trace edema to right foot. Respiratory: Bilateral wheezing worse on the right lung field, no tachypnea, no rhonchi, no rubs, no respiratory distress. Abdomen: Soft, nontender, nondistended, no rebound, no guarding, no peritoneal signs. Musculoskeletal: No joint swelling or deformity, normal muscle tone. Skin: No rashes or petechia, no signs of infection. Psychiatric: Alert and oriented, normal behavior and judgment for situation. Neurological: Alert and oriented to person, place, and time. Follows all commands. No focal deficits, speech is clear and fluent. Course Vital Signs Vital signs: Vital Signs
[2023-10-23 21:07] LABS: Lactic Acid Reflex 1.7 mmol/L (0.7-2.0); Magnesium 2.3 mg/dL (1.6-2.3)
[2023-10-23] MEDS: ONDANSETRON INJ 4 MG/2 ML VIAL IV PUSH (21:11)
[2023-10-23 21:17] LABS: NT Pro B Type Natriuretic Pept 105 pg/mL (19.9-100)
--- NOTE | 2023-10-23 21:18 | PCRCNOTE ---
RT to room for updraft treatment, patient in radiology.
[2023-10-23] MEDS: IPRATROPIUM 0.5 MG/ALBUTEROL SULFATE 2.5 MG AMPUL.NEB 3 ML INHALATION (21:22)
[2023-10-23 21:43] LABS: Influenza A QL RT-PCR Negative (Negative); Influenza B QL RT-PCR Negative (Negative); RSV RNA, RT-PCR Negative (Negative); SARS-CoV-2 RNA PCR Negative (Negative)
[2023-10-23 21:49] LABS: Basophils Absolute Auto 0.1 K/mm3 (0.0-0.1); Eosinophils Absolute Auto 0.4 K/mm3 (0-0.3); Eosinophils Percent Auto 4.2 % (0-4.4); Hematocrit 43.2 % (37.0-47.0); Hemoglobin 14.6 g/dL (12.0-15.0); Immature Granulocyte Absolute 0.05 K/mm3 (0.00-0.031); Immature Granulocyte Percent A 0.5 % (0-0.5); Lymphocytes Absolute Auto 3.89 K/mm3 (0.9-3.2); Lymphocytes Percent Auto 39.5 % (18.3-44.2); Mean Corpuscular HGB Conc 33.8 g/dl (32-36); Mean Corpuscular Hemoglobin 37.7 pg (26-34); Mean Corpuscular Volume 111.6 fl (80-100); Mean Platelet Volume 10.5 fl (7.4-10.4); Monocytes Absolute Auto 0.8 K/mm3 (0.1-0.6); Monocytes Percent Auto 8.5 % (2.6-8.5); Neutrophils Absolute Auto 4.6 K/mm3 (1.3-6.7); Neutrophils Percent Auto 46.3 % (45.5-73.1); Platelet Count Result 117 k/mm3 (150-375); Red Blood Count 3.87 M/mm3 (4.2-5.4); White Blood Count 9.9 K/mm3 (4.5-10.0)
[2023-10-23] MEDS: methylPREDNISolone SOD SUCC 125 MG VIAL IV PUSH (21:53)
[2023-10-23 21:57] LABS: Platelet Estimate Decreased (Adequate)
[2023-10-23 21:58] LABS: Schistocytes None Seen
[2023-10-23 22:01] LABS: Macrocytosis 1+ (NORMAL)
--- NOTE | 2023-10-23 23:31 | ECG_ITS ---
Measurements Intervals [place] Rate: 93 P: 51 DE: 169 QRS: -28 QRSD: 90 T: 48 QT: 373 Avg RR: 640 QTc: 424 QTcB: 466 QTcF: 432 Interpretive Statements SINUS RHYTHM BORDERLINE LEFT AXIS DEVIATION [QRS AXIS < -20] POSSIBLE RIGHT VENTRICULAR CONDUCTION DELAY [RSR (QR) IN V1/V2] BORDERLINE ECG SEE SCANNED COPY FOR SIGNATURE MTDD
[2023-10-23 23:45] LABS: Troponin I < 0.012 ng/mL (0.000-0.034)
[2023-10-24 00:22] VITALS: BP 102/72
[2023-10-24 00:24] VITALS: PULSE 102; RESP 15; O2SAT 94
--- NOTE | 2023-10-24 01:12 | PC.NURSE ---
Pt called this RN to room. Pt states she wants to go home and does not want to wait for results. Pt educated pt on risks of leaving, verbalized understanding. ANAMIKA Hudson notified.
[2023-10-24 01:21] VITALS: O2SAT 88
== END 2023-10-24 01:21 | disposition left against medical advice (07) ==
LOC: ANHED 21:24
PROVIDERS: Emergency Provider Emergency Medicine; PCP Family Medicine
DX: J18.9 Pneumonia, unspecified organism (principal); R06.89 Other abnormalities of breathing; Z20.822 Contact with and (suspected) exposure to COVID-19; J44.9 Chronic obstructive pulmonary disease, unspecified; F17.210 Nicotine dependence, cigarettes, uncomplicated; I45.10 Unspecified right bundle-branch block
CPT/HCPCS: 36415; 71046; 71275; 80053; 83605; 83690; 83735; 83880; 84484; 85025; 85610; 85730; 87637; 93005; 94640; 96374; 96375; 99284; J2405; J2919; Q9967

== ENCOUNTER 2023-12-23 10:41 | Outpatient (CLI) | payer OTHER, SELFPAY | END 2023-12-23 10:42 | disposition home or self-care (01) | LOC: ANHAUDIO 10:41 | PROVIDERS: PCP Family Medicine; Visit Provider Family Medicine | DX: H90.3 Sensorineural hearing loss, bilateral (principal) | CPT/HCPCS: 92557; 92567 ==

== ENCOUNTER 2024-01-05 08:58 | Outpatient (CLI) | payer OTHER, SELFPAY ==
--- NOTE | ~2024-01-05 | US_ITS ---
EXAMINATION: US abdomen limited DATE: 01/05/2024 09:20 INDICATION: Thrombocytopenia. TECHNIQUE: Multiple grayscale and Doppler ultrasound images of the abdomen were obtained. COMPARISON: CT abdomen 04/26/2023, chest CT 10/23/2023 FINDINGS: The visualized portions of the head, body, and tail of the pancreas are normal. The liver d emonstrates coarsened echotexture and surface nodularity, consistent with cirrhosis. There is normal flow in main portal vein. The gallbladder is normal in size and contains sludge. No visible gallstone s. Gallbladder wall thickening is noted, likely secondary to chronic liver disease. There is no sonog raphic Muñoz's sign. The common duct is normal and measures 5 mm. The spleen was not imaged but was normal in size on the CT from 10/23/2023. IMPRESSION: 1. Cirrhosis of the liver. Reviewed, dictated and finalized at location A. IMPRESSION: 1. Cirrhosis of the liver.
--- NOTE | ~2024-01-05 | XR_ITS ---
XR knee LT 3V 01/05/2024 10:10 Indication: Status post recent fall. History of fracture. Procedure: 3 views left knee Comparison: No prior studies for comparison. Findings: Osteopenia. No fracture, subluxation or dislocation. No joint effusion. No foreign bodies. Impression: 1: No acute fracture. Reviewed, dictated and finalized at location B. Impression: 1: No acute fracture.
== END 2024-01-05 08:59 | disposition home or self-care (01) ==
LOC: ANHIMG 09:02
PROVIDERS: PCP Family Medicine; Visit Provider Internal Medicine Hematology & Oncology
DX: D69.6 Thrombocytopenia, unspecified (principal); K74.60 Unspecified cirrhosis of liver; W19.XXXD Unspecified fall, subsequent encounter; Z98.890 Other specified postprocedural states
CPT/HCPCS: 73562; 76705

== ENCOUNTER 2024-02-01 20:14 | Inpatient (IN) | payer OTHER, SELFPAY ==
[2024-02-01] VITALS (9 sets, daily range): BP systolic 87–100; BP diastolic 48–65; PULSE 92–100; RESP 15–22; TEMP 36.6; O2SAT 77–100
--- NOTE | ~2024-02-01 | US_ITS ---
EXAMINATION: US venous doppler LE RT DATE: 02/01/2024 22:10 INDICATION: pain swelling recent ortho surgery . TECHNIQUE: Grayscale images without and with compression and Doppler images of the right lower extrem ity veins were obtained. COMPARISON: 08/30/2023 FINDINGS: The right common femoral vein, profunda (deep) femoral vein, femoral vein, popliteal vein, peroneal v ein, posterior tibial veins, and greater saphenous vein are patent. IMPRESSION: Patent right lower extremity veins. No evidence of deep venous thrombosis. Reviewed, dictated and finalized at location K.
--- NOTE | ~2024-02-01 | MR_ITS ---
MRI of the right knee Clinical history: Tibial lytic lesion Technique: Coronal proton density and proton density-weighted images, sagittal proton-density and T2 fat-sat images, and axial proton-density fat-saturated images were acquired. Findings: Anterior and posterior cruciate ligaments are intact. Medial collateral ligament and the la teral collateral ligament complex are intact. Popliteus tendon is intact. Medial and lateral menisci are intact, without evidence of tear. Articular cartilage is well preserved throughout the knee. There is a focal round cortical defect at the medial aspect of the proximal left tibia with somewhat tract-like hyperintense signal on fluid se nsitive sequences. There is minimal hypointensity on nonfluid sensitive sequences. No soft tissue mas s or periosteal reaction evident. Remaining bone marrow signals are unremarkable. Extensor mechanism is intact. No joint effusion or Vargas's cyst. There is diffuse subcutaneous soft t issue edema. Impression: Marrow signal abnormality at the proximal tibia with focal cortical defects. Appearance is somewhat t ract-like, raising the possibility of prior trauma or postoperative change. Malignancy. Malignancy fe lt to be less likely given the overall appearance and signal characteristics. Correlate with any rele vant clinical history or prior trauma/surgery. Diffuse subcutaneous soft tissue edema, nonspecific. Reviewed, dictated and finalized at [facility]. Impression: Marrow signal abnormality at the proximal tibia with focal cortical defects. Ap pearance is somewhat tract-like, raising the possibility of prior trauma or pos toperative change. Malignancy. Malignancy felt to be less likely given the over all appearance and signal characteristics. Correlate with any relevant clinical history or prior trauma/surgery. Diffuse subcutaneous soft tissue edema, nonspecific.
--- NOTE | ~2024-02-01 | CT_ITS ---
Procedure: CT hip RT w con Ordering provider: Shane Padilla MD History: . possible hematoma . Comparison: February 01, 2024 Technique: Thin slice axial CT of the No IV contrast was given. Sagittal and coronal reformatted imag es were also obtained and reviewed. Radiation reduction technique utilized. DLP is 680.64 mGy-cm. Findings: BONES: Intertrochanteric fracture with fixation by danilo and screw. No other fractures seen. JOINT SPACES: Slightly narrowed. SOFT TISSUES: Previously seen hematoma in the right upper lateral thigh is again demonstrated and manny ear unchanged. Hematoma measures 3.9 x 3 cm. Subcutaneous edema is seen in the upper thigh. Minimal air also seen in the area of the right lateral upper thigh Ascites is seen in the abdomen which is moderately increased compared to previous study. IMPRESSION: Fluid in the abdomen which is increased compared to previous study. Clinical evaluation and assessmen t is advised. Hematoma in the right upper thigh which is not significantly changed. Edema in the subcutaneous tissues of the upper thigh. Right intertrochanteric fracture with postoperative changes. Reviewed, dictated and finalized at location A. IMPRESSION: Fluid in the abdomen which is increased compared to previous study. Clinical ev aluation and assessment is advised. Hematoma in the right upper thigh which is not significantly changed. Edema in the subcutaneous tissues of the upper thigh. Right intertrochanteric fracture with postoperative changes.
--- NOTE | ~2024-02-01 | CT_ITS ---
EXAMINATION: CT abdomen pelvis w con DATE: 02/01/2024 23:24 INDICATION: Abdominal pain, pelvic pain evaluate for nondispla TECHNIQUE: Computed tomography (CT) of the abdomen and pelvis was performed with 100 mL Omnipaque-350 intravenous contrast. Automated exposure control and iterative reconstruction technique were employe d. The dose-length product was 293.16 mGy-cm. COMPARISON: 04/26/2023, 02/17/2023. FINDINGS: Lower thorax: Patchy areas of reticulation and groundglass opacity bilaterally in the lung bases. Cor onary artery calcification. Liver: Nodular liver border. Recanalization of the umbilical vein. Biliary/Gallbladder: Distended gallbladder with gallstones and mild pericholecystic fluid. No bile du ct dilation. Pancreas: No mass or duct dilation. Spleen: Normal. Adrenals:No mass. Kidneys: No suspicious mass, obstructing stone, or hydronephrosis. GI tract: Mild distal esophageal and gastric wall edema. Wall edema of the right colon. Fluid-filled colon. No small or large bowel dilation. Normal appendix. Diverticulosis without diverticulitis. Mesentery/Peritoneum: Small volume perihepatic fluid and deep pelvic fluid. No mass or free air. Retroperitoneum: No mass. Atherosclerotic abdominal aortic and/or arterial calcifications. Pelvis: Pelvic organs are within normal limits. Soft Tissues: Subcutaneous edema over the right hip and thigh. Surgical incision overlying the right hip. 2.7 x 4.0 hyperdense subcutaneous collection over the lateral proximal thigh at the level of the distal interlocking screw. Bones: No acute osseous finding. Subacute right intertrochanteric fracture, status post fixation. IMPRESSION: Pulmonary opacities may represent edema, atypical infection, pneumonitis, or hypersensitivity reactio n. Mild esophagitis/gastritis. Cirrhosis with portal hypertension. Gallbladder hydrops with mild pericholecystic fluid and gallstones. Correlate with symptoms of right upper quadrant pain and biliary labs. Wall edema of the right colon, may be secondary to portal hypertension versus colitis. Fluid-filled colon as can be seen with diarrheal illness. 2.7 by 4.0 cm subcutaneous fluid collection over the proximal right lateral thigh, at the level of th e distal interlocking screw, may represent small volume postoperative hemorrhage or posttraumatic hem orrhage. Reviewed, dictated and finalized at location K. IMPRESSION: Pulmonary opacities may represent edema, atypical infection, pneumonitis, or hy persensitivity reaction. Mild esophagitis/gastritis. Cirrhosis with portal hypertension. Gallbladder hydrops with mild pericholecystic fluid and gallstones. Correlate w ith symptoms of right upper quadrant pain and biliary labs. Wall edema of the right colon, may be secondary to portal hypertension versus c olitis. Fluid-filled colon as can be seen with diarrheal illness. 2.7 by 4.0 cm subcutaneous fluid collection over the proximal right lateral thi gh, at the level of the distal interlocking screw, may represent small volume p ostoperative hemorrhage or posttraumatic hemorrhage.
--- NOTE | ~2024-02-01 | XR_ITS ---
EXAMINATION: XR chest 1V Exam Date/Time: 02/01/2024 21:30 CDT HISTORY: shortness of breath Comparison: 10/23/2023. RESULT: Lines, tubes, and devices: None. Lungs and pleura: Patchy segmental airspace disease in the right lower lung. Cardiomediastinal silhouette: Stable. Other: No acute osseous or upper abdominal finding. IMPRESSION: Segmental right lower lung opacities concerning for pneumonia. Reviewed, dictated and finalized at location K.
--- NOTE | ~2024-02-01 | XR_ITS ---
EXAM: XR hip RT 2V w AP pelvis DATE: 02/01/2024 21:57 HISTORY: pain post recent R hip surgery . COMPARISON: None available. FINDINGS: Decreased mineralization. Right femoral hardware bridging a intertrochanteric fracture. Ob lique lucency in the posterior cortex near the tip of the femoral stem with adjacent cortical regular ity versus artifact. No lytic or blastic lesion. Lumbar degenerative disc disease. Mild bilateral hip osteoarthritis. No erosion or periosteal change. Multiple pelvic phleboliths. IMPRESSION: Possible nondisplaced right femoral shaft fracture at the tip of the femoral stem versus artifact. Consider CT of the pelvis further evaluation. Reviewed, dictated and finalized at location K. IMPRESSION: Possible nondisplaced right femoral shaft fracture at the tip of th e femoral stem versus artifact. Consider CT of the pelvis further evaluation.
--- NOTE | ~2024-02-01 | XR_ITS ---
EXAM: XR knee RT 3V DATE: 02/01/2024 21:56 HISTORY: pain post recent R hip surgery . COMPARISON: 02/17/2023. FINDINGS: Osteopenia. No fracture or dislocation. Circumscribed lucencies in the medial cortex of th e proximal tibia. Joint spaces are maintained. No erosion or periosteal change. Medial soft tissue sw elling. IMPRESSION: No acute fracture or dislocation. New lytic lesions in the medial tibial cortex concerning for metastatic disease or multiple myeloma. Consider nonemergent but timely bone scanning for further evaluation. Reviewed, dictated and finalized at location K.
--- NOTE | 2024-02-01 20:51 | ECG_ITS ---
Test Date: 2024-02-01 20:45:48 Measurements Intervals [place] Rate: 98 P: 43 TX: 167 QRS: -8 QRSD: 97 T: 52 QT: 370 QTc: 474 Interpretive Statements SINUS RHYTHM INCOMPLETE RIGHT BUNDLE BRANCH BLOCK LOW VOLTAGE- DIFFUSE LEADS BORDERLINE ECG No previous ECG available for comparison Electronically Signed On 02-02-2024 07:10:52 CDT by Foreign Tracey D.O.
[2024-02-01 22:31] LABS: Alanine Aminotransferase 24 U/L (6-35); Albumin Level 3.1 g/dL (3.5-5.1); Alkaline Phosphatase 295 U/L (38-126); Anion Gap 8 mmol/L (4-12); Aspartate Amino Transferase 131 U/L (14-36); Bilirubin,Total 2.5 mg/dL (0.2-1.3); Blood Urea Nitrogen 6 mg/dL (7-17); Calcium 7.5 mg/dL (8.4-10.2); Carbon Dioxide 27 mmol/L (22-30); Chloride 85 mmol/L (98-107); Estimated CRCL calculation 136 ml/min; Estimated Glomerular Filt Rate > 60; Glucose 98 mg/dL (65-110); Potassium 2.9 mmol/L (3.4-5.0); Sodium 120 mmol/L (137-145)
[2024-02-01 22:39] LABS: INR 1.3; Prothrombin Time 16.5 Seconds (11.1-14.7)
[2024-02-01 22:40] LABS: Partial Thromboplastin Time 38.6 Seconds (22.3-36.8)
[2024-02-01 23:04] LABS: Hemoglobin 7.1 g/dL (12.0-15.0); Mean Corpuscular HGB Conc 33.8 g/dl (32-36); Mean Corpuscular Hemoglobin 38.6 pg (26-34); Mean Corpuscular Volume 114.1 fl (80-100); Mean Platelet Volume 10.3 fl (7.4-10.4); Platelet Count Result 113 k/mm3 (150-375); Red Blood Count 1.84 M/mm3 (4.2-5.4); Red Cell Distribution Width 14.4 % (11.5-14.5); White Blood Count 11.1 K/mm3 (4.5-10.0)
[2024-02-01 23:13] LABS: Basophils Percent Auto 0.1 % (0.2-1.2); Eosinophils Percent Auto 2.7 % (0-4.4); Lymphocytes Percent Auto 23.5 % (18.3-44.2); Monocytes Percent Auto 7.7 % (2.6-8.5); Neutrophils Percent Auto 63.6 % (45.5-73.1)
[2024-02-01 23:14] LABS: Eosinophils Absolute Auto 0.3 K/mm3 (0-0.3); Immature Granulocyte Absolute 0.22 K/mm3 (0.00-0.031); Immature Granulocyte Percent A 2.4 % (0-0.5); Lymphocytes Absolute Auto 2.16 K/mm3 (0.9-3.2); Monocytes Absolute Auto 0.7 K/mm3 (0.1-0.6); Neutrophils Absolute Auto 5.8 K/mm3 (1.3-6.7)
[2024-02-01 23:19] LABS: Platelet Estimate Decreased (Adequate)
[2024-02-01 23:20] LABS: Macrocytosis 1+ (NORMAL); Schistocytes None Seen
[2024-02-01] MEDS: KCL 20 MEQ/SW 100 ML 100 ML 50 MEQ IVPB (23:46)
[2024-02-01] MEDS: SODIUM CHLORIDE 0.9% IV 1,000 ML 999 ML IV CONT (23:46)
[2024-02-02] VITALS (17 sets, daily range): BP systolic 100–138; BP diastolic 49–94; PULSE 81–115; RESP 14–21; TEMP 36.3–37.6; O2SAT 90–99; BMI 27.9
--- NOTE | 2024-02-02 01:47 | ED.GENADULT ---
HPI - General Adult General Chief complaint: Fall Stated complaint: fall 2 weeks ago Time Seen by Provider: 02/01/24 21:12 History of Present Illness HPI narrative: Patient is a 49-year-old female who presents emergency department with chief complaint of weakness patient was admitted had [facility] had surgery on her right lower extremity she has 2 small wounds on her lower extremity pain that most likely were from a traction pin patient reports they being continued ooze but also notes that she has been feeling weak and short of breath. The patient was found to be hypotensive whenever she 1st arrived the pressure 87/48 patient also been complaining of lightheadedness the patient apparently signed out AMA from [facility] hospital Related Data Home Medications Medication Instructions Recorded Confirmed amlodipine 5 mg tablet 5 mg PO DAILY 02/17/23 02/17/23 folic acid 1 mg tablet 1 mg PO DAILY 02/17/23 02/17/23 vitamin A 2,400 mcg capsule 2,400 mcg PO DAILY 02/17/23 02/17/23 amitriptyline 25 mg tablet 25 mg PO PRN 08/30/23 08/30/23 amlodipine 5 mg tablet 5 mg DAILY 08/30/23 08/30/23 cyclobenzaprine 10 mg tablet 10 mg PRN 08/30/23 08/30/23 folic acid 1 mg tablet 1 mg DAILY 08/30/23 08/30/23 ibuprofen 600 mg tablet 600 mg DAILY 08/30/23 08/30/23 bupropion HCl (smoking deter) 150 mg PO 10/23/23 mg tablet,12 hr sustained-release(smoking deterrent) furosemide 20 mg tablet mg 10/23/23 metoprolol succinate 25 mg mg PO 10/23/23 tablet,extended release 24 hr Allergies Allergy/AdvReac Type Severity Reaction Status Date / Time adhesive tape AdvReac Other Verified 12/31/23 09:42 Sulfa (Sulfonamide AdvReac Headache Verified 12/31/23 09:42 Antibiotics) Review of Systems Review of Systems: A 10 system review of systems was completed on the patient and is negative except for what is stated in the HPI. Nursing and ancillary documentation was reviewed. [facility] Past Medical History Medical History Asthma Chronic back pain Chronic GERD COPD (chronic obstructive pulmonary disease) D-dimer, elevated ETOH abuse History of Clostridioides difficile colitis Hypertension Marijuana use Nicotine abuse Surgical History Surgical History H/O dilation and curettage No significant past surgical history Family History Family History Father Diabetes mellitus Mother Diabetes mellitus Social History Social History Social History: The patient lives with her significant other. She occasionally smokes marijuana. She does work on auditing medical records. She drinks a 24 oz beer approximately 2-6 cans a day. She has 1 daughter that is 32 years old. Code status full code. Smoking packs per day: 1 Smoking cigarettes per day: 20.0 Years smoked: 37 Smoking pack-years: 37.00 Smoking status: Current every day smoker Tobacco type: cigarettes Alcohol intake: current Drinks per week: 42 Substance use: current Substance use type: marijuana Other substance usage details: 2 joints Last use: 08/29/23 Do You Feel Safe in your Home?: Yes Lack of Transportation: No Lack of Food: Never True Current Housing: I Have Housing Concerned About Future Housing: No Difficulty Paying Gas/Electric Bills: No Difficulty Paying for Meds: No Currently Unemployed: No Education: Trade/Vocational Certificate Difficulty w/ Childcare or Family Care: No Spiritual care concerns: No Exam Narrative: GENERAL: Ill-appearing, well-nourished, and in no acute distress. HEAD: Normocephalic, atraumatic. EYES: PERRLA and EOMI. ENT: Nares clear, no rhinorrhea or epistaxis. Mucous membranes moist. NECK: Supple. CHEST: Clear to auscultation. No
--- NOTE | 2024-02-02 02:58 | ADMGEN ---
This patient, Radha Mendoza, was admitted to IMU Room 210-01. Patient/family oriented to hospital policies and general routines including ID bracelet, bed and alarms, visiting hours, pain management, procedures, bathroom and other care routines, personal items, smoking policy, room service/diet, and visiting hours. Information on how to activate the Rapid Response Team has been discussed. Patient/Family are encouraged to report perceived risks to care and to ask questions if they do not understand what they are told or what they should do.
[2024-02-02] MEDS: SODIUM CHLORIDE 0.9% IV 1,000 ML 75 ML IV CONT (03:42)
[2024-02-02 05:22] LABS: Anion Gap 6 mmol/L (4-12); Blood Urea Nitrogen 6 mg/dL (7-17); Calcium 7.6 mg/dL (8.4-10.2); Carbon Dioxide 30 mmol/L (22-30); Chloride 91 mmol/L (98-107); Estimated CRCL calculation 157 ml/min; Estimated Glomerular Filt Rate > 60; Glucose 129 mg/dL (65-110); Potassium 3.7 mmol/L (3.4-5.0); Sodium 127 mmol/L (137-145)
[2024-02-02 05:53] LABS: Hematocrit 23.3 % (37.0-47.0); Hemoglobin 7.8 g/dL (12.0-15.0); Mean Corpuscular HGB Conc 33.5 g/dl (32-36); Mean Corpuscular Hemoglobin 38.2 pg (26-34); Mean Corpuscular Volume 114.2 fl (80-100); Mean Platelet Volume 11.3 fl (7.4-10.4); Platelet Count Result 92 k/mm3 (150-375); Red Blood Count 2.04 M/mm3 (4.2-5.4); Red Cell Distribution Width 14.6 % (11.5-14.5)
--- NOTE | 2024-02-02 08:15 | PM.IMHP ---
H&P: HPI History of Present Illness Date/Time: 02/02/24 08:15 Chief Complaint: Fall Narrative: Interval history: This is a 49 year old female with a significant past medical history of asthma, chronic back pain, GERD, COPD, ETOH abuse, C-diff colitis, hypertension, Marijuana and tobacco abuse that presents with weakness, hypotension, and lightheadedness. Initial B/P in the ER was 87/48. Patient reports that on of last week she tripped over some carpet and fell onto a paint can on her right side. She immediately felt pain and put a brace on her leg which seemed to help with the pain at that time however pain worsened and she was not able to get back up prompting her to call EMS. EMS took patient to [facility] hospital and patient underwent fixation of right intertrochanteric fracture. She states that they did not inform her of anything that was going on and that upset her, so she decided to leave against medical advice. She went home and started noticing blood leaking from her incision prompting her to go to the ER for further evaluation. Patient denies any fever, chills, nausea, vomiting, diarrhea, abdominal pain, chest pain, shortness of breath. Patient endorses hallucinations and palpitations, she is on CIWA protocol. She recently was at [facility] and had surgery on her right lower extremity after sustaining a fall 2 weeks ago. Work up in the hospital includes knee x-ray which was negative for fracture or dislocation however showed new lytic lesions in the medial tibial cortex concerning for metastatic disease or multiple myeloma. Chest x-ray showed segmental right lower lung opacities concerning for pneumonia. Hip and pelvis x-ray shows possible nondisplaced right femoral shaft fracture at the tip of the femoral stem versus artifact, there was also right femoral hardware bridging a intratrochanteric fracture. Venous Doppler was negative for DVT. Abdomen pelvis CT showed pulmonary opacity, mild esophagitis/gastritis, cirrhosis with portal hypertension, gallbladder hydrops with mild pericholecystic fluid and gallstones, wall edema of the right colon likely secondary to portal hypertension versus colitis, fluid filled colon as seen with diarrheal issues, 2.7 x 4.0 cm subcutaneous fluid collection over the proximal right lateral thigh at the level of the distal interlocking screw representing small volume postoperative hemorrhage or posttraumatic hemorrhage. Initial labs showed a white blood cell count of 11.1, RBC 1.84, hemoglobin 7.1, hematocrit 21, platelet count 113, sodium 120, potassium 2.9, chloride 85, total bili 2.5, AST 131, ALT normal at 24, alk-phos 295. Patient was given 1 L of normal saline, and 20 mEq potassium while in the ED. Review of Systems Review of Systems: All systems reviewed & are unremarkable except as noted in HPI and below Constitutional: Constitutional: Reports as per HPI and Reports no additional constitutional complaints Eyes: Eyes: Reports as per HPI and Reports no additional eye complaints ENT: Reports system reviewed and no additional complaints, except as documented and Reports as per HPI Cardiovascular: Cardiovascular: Reports as per HPI and Reports no additional cardiovascular complaints Respiratory: Respiratory: Reports as per HPI and Reports no additional respiratory complaints Gastrointestinal: Gastrointestinal: Reports as per HPI and Reports no additional gastrointestinal complaints Genitourinary: Genitourinary: Reports no additional female genitourinary complaints and Reports as per HPI Musculoskeletal: Musculoskeletal: Reports no additional musculoskeletal complaints and Reports as per HPI Integumentary/Breasts: Skin/Breast: Reports system reviewed and no additional complaints, except as docu and Reports as per HPI Neurologic: Reports system reviewed and no additional complaints, except as documented and Reports as per HPI Psychiatric: Psychiatric: Reports no additional psychiatric complaints and Report
[2024-02-02] MEDS: FOLIC ACID 1 MG TABLET PO (09:56)
[2024-02-02] MEDS: POTASSIUM CHLORIDE 20 MEQ ER TABLET 40 MEQ PO (09:56)
[2024-02-02] MEDS: THIAMINE HCL 100 MG TABLET PO (09:56)
[2024-02-02] MEDS: CEFEPIME 2 GM/NS 50 ML 2 GM/50 ML BAG IVPB ×2 (09:56→16:52)
[2024-02-02] MEDS: VANCOMYCIN 1,750 MG/NS 500 ML 1,750 MG/500 ML BAG 250 MG IVPB (10:41)
[2024-02-02 11:00] LABS: IFOB Positive Control Positive; Immunochemical Fecal Occult Bl Positive (N)
[2024-02-02 11:25] LABS: MRSA (PCR) NOT DETECTED (NOT DETECTE)
[2024-02-02 11:36] LABS: Toxigenic C. Diff NEGATIVE (NEGATIVE)
[2024-02-02] MEDS: AZITHROMYCIN 500 MG/NS 250 ML 500 MG/250 ML BAG 250 MG IVPB (13:20)
[2024-02-02] MEDS: ACETAMINOPHEN 325 MG TABLET 650 MG PO (13:51)
[2024-02-02] MEDS: METOPROLOL SUCCINATE EXT REL 50 MG TABCR PO (14:57)
[2024-02-02] MEDS: chlordiazePOXIDE (*CRX) 25 MG CAPSULE PO (14:57)
[2024-02-02 15:47] LABS: Immature Platelet Fraction Pct 6.5 % (0.9-11.2); Mean Corpuscular Volume 127.1 fl (80-100); Mean Platelet Volume 10.1 fl (7.4-10.4); Platelet Count Result 142 k/mm3 (150-375); Red Cell Distribution Width 20.6 % (11.5-14.5); White Blood Count 6.9 K/mm3 (4.5-10.0)
[2024-02-02 16:34] LABS: Glucose Point of Care 145 mg/dl (65-105)
[2024-02-02 16:38] LABS: Hematocrit 17.8 % (37.0-47.0)
[2024-02-02 16:39] LABS: Mean Corpuscular HGB Conc 34.5 g/dl (32-36)
[2024-02-02] MEDS: DOXYCYCLINE HYCLATE 100 MG TABLET PO (16:58)
[2024-02-02 17:13] LABS: Immature Reticulocyte Fraction 41.7 % (3.0-15.9); Reticulocyte Hemoglobin Conten 37.5 pg (28.2-36.6); Reticulocyte Percent 11.07 % (0.7-4.3); Reticulocytes Absolute 0.03 10^6/uL (0.02-0.10)
[2024-02-02] MEDS: CYCLOBENZAPRINE HCL 10 MG TABLET PO (18:34)
--- NOTE | 2024-02-02 19:00 | PCRCNOTE ---
Window of time for administration has passed. See next scheduled administration.
[2024-02-02] MEDS: TUBING, BLOOD PLUM PUMP TUBING 1 EACH XX (20:18)
[2024-02-02] MEDS: SODIUM CHLORIDE 0.9% IV 250 ML 30 ML IV CONT (20:18)
[2024-02-02] MEDS: CEPHALEXIN 500 MG CAPSULE PO (21:12)
--- NOTE | 2024-02-02 21:29 | PC.NURSE ---
Pt transferred to IMU 210 from ED 244 by bed with all belongings. Report given to Merly ROUSSEAU. Blood transfusion paused while in transit due to blood warmer, blood restarted on arrival to room.
[2024-02-02] MEDS: FLUTICASONE/SALMETEROL 115-21 MCG INHALER 1 PUFF INHALATION (21:33)
[2024-02-02 23:46] LABS: Glucose Point of Care 193 mg/dl (65-105)
[2024-02-03] VITALS (15 sets, daily range): BP systolic 118–130; BP diastolic 69; PULSE 103–112; RESP 20; TEMP 36.4–37.2; O2SAT 92–96
[2024-02-03] MEDS: CEFEPIME 2 GM/NS 50 ML 2 GM/50 ML BAG IVPB ×3 (00:27→13:04)
[2024-02-03] MEDS: chlordiazePOXIDE (*CRX) 25 MG CAPSULE PO (00:31)
[2024-02-03 05:19] LABS: Basophils Percent Auto 0.4 % (0.2-1.2); Eosinophils Absolute Auto 0.1 K/mm3 (0-0.3); Eosinophils Percent Auto 1.8 % (0-4.4); Hematocrit 29.2 % (37.0-47.0); Hemoglobin 9.8 g/dL (12.0-15.0); Immature Granulocyte Absolute 0.36 K/mm3 (0.00-0.031); Immature Granulocyte Percent A 4.6 % (0-0.5); Lymphocytes Absolute Auto 1.33 K/mm3 (0.9-3.2); Lymphocytes Percent Auto 17.1 % (18.3-44.2); Mean Corpuscular HGB Conc 33.6 g/dl (32-36); Mean Corpuscular Volume 107.4 fl (80-100); Mean Platelet Volume 11.2 fl (7.4-10.4); Monocytes Absolute Auto 0.6 K/mm3 (0.1-0.6); Monocytes Percent Auto 7.4 % (2.6-8.5); Neutrophils Absolute Auto 5.4 K/mm3 (1.3-6.7); Neutrophils Percent Auto 68.7 % (45.5-73.1); Nucleated Red Blood Cells Perc 2.1 % (0.0-0.2); Platelet Count Result 65 k/mm3 (150-375); Red Blood Count 2.72 M/mm3 (4.2-5.4); Red Cell Distribution Width 21.6 % (11.5-14.5); White Blood Count 7.8 K/mm3 (4.5-10.0)
[2024-02-03 05:31] LABS: Platelet Estimate Decreased (Adequate)
[2024-02-03 05:32] LABS: Anisocytosis 1+; Macrocytosis 1+ (NORMAL); Schistocytes None Seen
[2024-02-03 05:40] LABS: Alanine Aminotransferase 27 U/L (6-35); Alkaline Phosphatase 382 U/L (38-126); Anion Gap 6 mmol/L (4-12); Aspartate Amino Transferase 121 U/L (14-36); Bilirubin,Total 3.2 mg/dL (0.2-1.3); Calcium 7.4 mg/dL (8.4-10.2); Carbon Dioxide 26 mmol/L (22-30); Chloride 93 mmol/L (98-107); Estimated CRCL calculation 157 ml/min; Estimated Glomerular Filt Rate > 60; Glucose 136 mg/dL (65-110); Potassium 2.9 mmol/L (3.4-5.0); Sodium 125 mmol/L (137-145)
[2024-02-03 05:49] LABS: Blood Urea Nitrogen < 2 mg/dL (7-17)
[2024-02-03] MEDS: SODIUM CHLORIDE 0.9% IV 1,000 ML 75 ML IV CONT (06:02)
[2024-02-03 06:08] LABS: Hepatitis B Surface Antigen Negative (Negative)
[2024-02-03 06:14] LABS: HAV RESULT Negative (Negative); Hepatitis B Core IgM Result Negative (Negative)
[2024-02-03 06:24] LABS: Glucose Point of Care 174 mg/dl (65-105)
[2024-02-03 06:26] LABS: Hepatitis C Virus Antibody Negative (Negative)
--- NOTE | 2024-02-03 06:50 | PM.CNOR ---
Assessment and Plan Assessment and plan (1) Intertrochanteric fracture: Code(s): S72.143A - Displaced intertrochanteric fracture of unspecified femur, initial encounter for closed fracture Status: Acute Assessment and Plan: Patient has an intertrochanteric fracture of postoperative drainage. She underwent open reduction internal fixation with a trochanteric nail [facility] week ago. Unfortunately she left AMA and now is fair bit of drainage she was admitted with multiple medical problems including alcohol withdrawal. On exam the drainage is slowing. She can wiggle her toes. Her x-rays demonstrate reasonable alignment of the fracture. I told her this should heal uneventfully. However she is at high risk for infection. I placed on antibiotics protector. Because of her liver failure. Recommended Lang wrap around the wound. She can follow-up at [facility] when she is dismissed from the hospital here. History of Present Illness HPI Consult date: 02/03/24 Chief complaint: Generalized weakness, Hyponatremia, Hypokalemia, A Narrative: Was asked see the patient regarding draining hip wound right. She had open reduction internal fixation with trochanteric nail in [facility] a week ago. Apparently she left AMA. She had significant drainage when she came in which is slowing at this time. Review of Systems Musculoskeletal: Musculoskeletal: Reports back pain, Reports arthralgias and Reports joint swelling PMFSH Past Medical History Medical History Asthma Chronic back pain Chronic GERD COPD (chronic obstructive pulmonary disease) D-dimer, elevated ETOH abuse History of Clostridioides difficile colitis Hypertension Marijuana use Nicotine abuse Surgical History Surgical History H/O dilation and curettage No significant past surgical history Family History Family History Father Diabetes mellitus Mother Diabetes mellitus Social History Social History Social History: The patient lives with her significant other. Her mother and father live next door to her She smokes marijuana daily. She currently works at [employer]. She drinks a 150 oz beer daily. She is currently an every day smoker, 1pack per day for 37 years. She has 1 daughter that is 32 years old. Code status full code. Smoking packs per day: 1 Smoking cigarettes per day: 20.0 Years smoked: 37 Smoking pack-years: 37.00 Smoking status: Current every day smoker Tobacco type: cigarettes Second hand tobacco smoke exposure: No Alcohol intake: current Drinks per week: 42 Substance use: current Substance use type: marijuana Other substance usage details: 2 joints Last use: 08/29/23 Do You Feel Safe in your Home?: Yes Lack of Transportation: No Lack of Food: Never True Current Housing: I Have Housing Concerned About Future Housing: No Difficulty Paying Gas/Electric Bills: No Difficulty Paying for Meds: No Currently Unemployed: No Education: Trade/Vocational Certificate Difficulty w/ Childcare or Family Care: No Spiritual care concerns: No Meds Home Medications and Allergies Home Medications Medication Instructions Recorded Confirmed Type folic acid 1 mg tablet 1 mg PO DAILY 02/17/23 02/02/24 History albuterol sulfate 90 mcg/actuation 1 inh inhalation QID PRN shortness 02/18/23 02/02/24 Rx aerosol inhaler of breath or wheezing 1 month #8.5 grams fluticasone propionate 115 1 puff inhalation Q12HRT 1 month 02/18/23 02/02/24 Rx mcg-salmeterol 21 mcg/actuation #12 grams HFA inhaler (Advair HFA) amitriptyline 25 mg tablet 25 mg PO PRN PRN Sleep 08/30/23 02/02/24 History cyclobenzaprine 10 mg tablet 10 mg PO PRN PRN back spasms
[2024-02-03] MEDS: FLUTICASONE/SALMETEROL 115-21 MCG INHALER 1 PUFF INHALATION (08:20)
[2024-02-03] MEDS: METOPROLOL SUCCINATE EXT REL 50 MG TABCR PO (09:15)
[2024-02-03] MEDS: FOLIC ACID 1 MG TABLET PO (09:16)
[2024-02-03] MEDS: THIAMINE HCL 100 MG TABLET PO (09:16)
[2024-02-03] MEDS: CEPHALEXIN 500 MG CAPSULE PO (09:16)
[2024-02-03 12:29] LABS: Glucose Point of Care 154 mg/dl (65-105)
[2024-02-03] MEDS: AZITHROMYCIN 500 MG/NS 250 ML 500 MG/250 ML BAG 250 MG IVPB (13:04)
--- NOTE | 2024-02-03 14:29 | PM.DS ---
DS: Admitting Diagnosis Discharge Date 02/03/24 Admitting Diagnosis Respiratory failure with hypoxia Pneumonia COPD exacerbation Inter trochanteric fracture Lytic bone lesion on x-ray DS: Discharge Diagnosis Discharge Diagnosis (1) Respiratory failure with hypoxia: Code(s): J96.91 - Respiratory failure, unspecified with hypoxia Status: Acute (2) Pneumonia: Qualifiers: Laterality: bilateral Lung location: lower lobe of lung Pneumonia type: due to unspecified organism Qualified Code(s): J18.9 - Pneumonia, unspecified organism Code(s): J18.9 - Pneumonia, unspecified organism Status: Acute (3) COPD exacerbation: Code(s): J44.1 - Chronic obstructive pulmonary disease with (acute) exacerbation Status: Acute (4) Intertrochanteric fracture: Code(s): S72.143A - Displaced intertrochanteric fracture of unspecified femur, initial encounter for closed fracture Status: Acute (5) Lytic bone lesions on xray: Code(s): M89.9 - Disorder of bone, unspecified Status: Acute (6) Generalized weakness: Code(s): R53.1 - Weakness Status: Acute (7) Anemia: Code(s): D64.9 - Anemia, unspecified Status: Acute (8) ETOH abuse: Code(s): F10.10 - Alcohol abuse, uncomplicated Status: Acute Assessment and Plan: 02/02/24: Patient drinks 150 ounces of beer per day She reports having withdrawal in the past She reports some hallucinations today, high heart rate, low grade temp CIWA protocol in place Restarted folic acid Started thiamine 100 mg daily Monitor closely (9) Thrombocytopenia: Code(s): D69.6 - Thrombocytopenia, unspecified Status: Acute (10) Acute hyponatremia: Code(s): E87.1 - Hypo-osmolality and hyponatremia Status: Acute (11) Acute hypokalemia: Code(s): E87.6 - Hypokalemia Status: Acute (12) Hypertension: Code(s): I10 - Essential (primary) hypertension Status: Acute (13) Chronic GERD: Code(s): K21.9 - Gastro-esophageal reflux disease without esophagitis Status: Acute (14) Nicotine abuse: Code(s): Z72.0 - Tobacco use Status: Acute DS: Summary Hospital Course Reason for hospitalization: Respiratory failure with hypoxia Pneumonia COPD exacerbation Inter trochanteric fracture Lytic bone lesion on x-ray Hospital Course: This is a 49 year old female with a significant past medical history of asthma, chronic back pain, GERD, COPD, ETOH abuse, C-diff colitis, hypertension, Marijuana and tobacco abuse that presents with weakness, hypotension, and lightheadedness. Initial B/P in the ER was 87/48. Patient reports that on of last week she tripped over some carpet and fell onto a paint can on her right side. She immediately felt pain and put a brace on her leg which seemed to help with the pain at that time however pain worsened and she was not able to get back up prompting her to call EMS. EMS took patient to [facility] hospital and patient underwent fixation of right intertrochanteric fracture. She states that they did not inform her of anything that was going on and that upset her, so she decided to leave against medical advice. She went home and started noticing blood leaking from her incision prompting her to go to the ER for further evaluation. Patient denies any fever, chills, nausea, vomiting, diarrhea, abdominal pain, chest pain, shortness of breath. Patient endorses hallucinations and palpitations, she is on CIWA protocol. She recently was at [facility] and had surgery on her right lower extremity after sustaining a fall 2 weeks ago. Work up in the hospital includes knee x-ray which was negative for fracture or dislocation however showed new lytic lesions in the medial tibial cortex concerning for metastatic disease or multiple myeloma. Chest x-ray showed segmental right lower lung opacities concerning for pneumonia. Hip and pelvis x-ray shows p
== END 2024-02-03 15:45 | disposition home or self-care (01) | DRG 139 ==
LOC: ANHED 02-02 01:53 → ANH2MED 02-02 02:48 → ANHIMU 02-03 10:28
PROVIDERS: Admitting Provider Internal Medicine; Emergency Provider Emergency Medicine; PCP Family Medicine; Visit Provider Nurse Practitioner Acute Care
DX: J18.9 Pneumonia, unspecified organism (principal); J96.91 Respiratory failure, unspecified with hypoxia; J44.0 Chronic obstructive pulmonary disease with (acute) lower respiratory infection; J44.1 Chronic obstructive pulmonary disease with (acute) exacerbation; J45.909 Unspecified asthma, uncomplicated; I10 Essential (primary) hypertension; I95.9 Hypotension, unspecified; D62 Acute posthemorrhagic anemia; D69.6 Thrombocytopenia, unspecified; E87.1 Hypo-osmolality and hyponatremia; E87.6 Hypokalemia; K21.9 Gastro-esophageal reflux disease without esophagitis; M96.840 Postprocedural hematoma of a musculoskeletal structure following a musculoskeletal system procedure; M89.9 Disorder of bone, unspecified; M54.9 Dorsalgia, unspecified; G89.29 Other chronic pain; Y95 Nosocomial condition; F10.10 Alcohol abuse, uncomplicated; F17.210 Nicotine dependence, cigarettes, uncomplicated; F12.90 Cannabis use, unspecified, uncomplicated; S72.141D Displaced intertrochanteric fracture of right femur, subsequent encounter for closed fracture with routine healing; W18.09XD Striking against other object with subsequent fall, subsequent encounter
CPT/HCPCS: 36415; 36430; 71045; 73502; 73562; 73701; 73721; 74177; 80048; 80053; 80074; 82274; 82948; 83605; 85025; 85027; 85046; 85055; 85610; 85730; 86850; 86870; 86880; 86900; 86901; 86922; 86978; 87493; 87641; 93005; 93971; 94640; 96361; 96365; 96366; 96375; 99285; A9270; G0378; G0379; J0456; J0692; J3370; J3480; J7030; J7050; P9016; Q9967

== ENCOUNTER 2024-09-04 15:22 | Inpatient (IN) | payer OTHER, SELFPAY ==
--- NOTE | ~2024-09-04 | XR_ITS ---
EXAMINATION: XR chest 2V Exam Date/Time: 09/04/2024 16:18 SPOT CHECKER HISTORY: sob, anemia Comparison: 02/01/2024. RESULT: Lines, tubes, and devices: None. Lungs and pleura: Linear bibasilar atelectasis/scar, otherwise clear. Cardiomediastinal silhouette: Stable. Other: No acute osseous or upper abdominal finding. IMPRESSION: No acute cardiopulmonary process. Reviewed, dictated and finalized at location K. CHECKER
--- NOTE | ~2024-09-04 | CT_ITS ---
EXAMINATION: CT abdomen pelvis w con DATE: 09/04/2024 20:29 INDICATION: upper abd pain, gib TECHNIQUE: Computed tomography (CT) of the abdomen and pelvis was performed with 100 mL Omnipaque-350 intravenous contrast. Automated exposure control and iterative reconstruction technique were employe d. The dose-length product was 631.91 mGy-cm. COMPARISON: 02/01/2024. FINDINGS: Lower thorax: Coronary artery calcifications. Bilateral dependent scar/atelectasis. Liver: Cirrhotic liver changes. Biliary/Gallbladder: Cholelithiasis. No bile duct dilation. Pancreas: No mass or duct dilation. Spleen: Normal. Adrenals:No mass. Kidneys: No suspicious mass, obstructing stone, or hydronephrosis. GI tract: No small or large bowel dilation. Normal appendix. Diverticulosis without diverticulitis. Mesentery/Peritoneum: No mass or free air. Moderate volume simple free fluid. Recanalization of the u mbilical vein. Retroperitoneum: No mass. Pelvis: Pelvic organs are within normal limits. Soft Tissues: Soft tissues and body wall unremarkable. Bones: No acute osseous finding. Partially visualized, uncomplicated appearing right proximal femora l fixation hardware. IMPRESSION: Cirrhosis with portal hypertension. Moderate ascites. Reviewed, dictated and finalized at location K. [employer]
[2024-09-04 15:49] VITALS: BP 111/53; PULSE 116; RESP 15; TEMP 36.6; O2SAT 98
--- NOTE | 2024-09-04 15:54 | ED.RECABL ---
HPI - Recheck/Abnormal Lab/Rx General Chief Complaint: Recheck/Abnormal Lab/Rx <BETH Newberry Last Filed: 09/04/24 16:09> Stated Complaint: low hgb <BETH Newberry Last Filed: 09/04/24 16:09> Time Seen by Provider: 09/04/24 15:55 <BETH Newberry Last Filed: 09/04/24 16:09> Focused HPI: Patient is a 49 y/o female who presents to the ED with c/o abnormal labs. Patient reports she has not been feeling well lately. C/o racing heart palpitations, fatigue, intermittent dizziness, intermittent constipation, shortness of breath, pain throughout her upper abdomen into her chest and around to her back. She saw her GI doctor, Dr. Aceves, last and was referred to have outpatient labs. Had labs performed today and was told to come to the ED for a hemoglobin of 4.9. Patient quit drinking ETOH last January. Hx of cirrhosis. Reports upper abd pain and bloating has been ongoing for the past few months. She was admitted here last January and did receive a blood transfusion at that time. Denies other known issues with anemia. Is on a multivitamin, unsure if it has iron. States she has been mostly constipated for the past 4 days, but has passed a small amount of stool which has been dark black in color. Denies BRBPR. GENERAL: Chronically ill appearing, appears older than stated age, and in no acute distress. HEAD: Normocephalic, atraumatic. CHEST: Clear to auscultation. ?No respiratory distress. HEART: Regular rate and rhythm.? ABD: Diffuse distension, somewhat firm, normoactive BS, diffuse tenderness. NEURO: ?Alert and oriented x3. Patient screened in triage and initial orders placed.? ?Additional care and disposition to be based upon?diagnostic testing and treatment. <BETH Newberry Last Filed: 09/04/24 16:09> Source: patient and old records reviewed <BETH Newberry Last Filed: 09/04/24 16:09> Mode of arrival: ambulatory <BETH Newberry Last Filed: 09/04/24 16:09> Limitations: no limitations <Dilcia Weiss PA-C - Last Filed: 09/04/24 16:09> Related Data Home Medications: Home Medications ?Medication ?Instructions ?Recorded ?Confirmed ?Last Taken ?Type folic acid 1 mg tablet 1 mg PO DAILY 02/17/23 02/02/24 02/17/23 08:00 History amitriptyline 25 mg tablet 25 mg PO PRN PRN Sleep 08/30/23 02/02/24 Unknown History cyclobenzaprine 10 mg tablet 10 mg PO PRN PRN back spasms 08/30/23 02/02/24 Unknown History ibuprofen 600 mg tablet 600 mg PO DAILY PRN Pain 08/30/23 02/02/24 Unknown History furosemide 20 mg tablet 20 mg PO DAILY PRN swelling 10/23/23 02/02/24 Unknown History metoprolol succinate 25 mg 50 mg PO DAILY 10/23/23 02/02/24 Unknown History tablet,extended release 24 hr <BETH Newberry Last Filed: 09/04/24 16:09> Allergies/Adverse Reactions: Allergies Allergy/AdvReac Type Severity Reaction Status Date / Time adhesive tape AdvReac Other Verified 09/04/24 15:54 Sulfa (Sulfonamide AdvReac Headache Verified 09/04/24 15:54 Antibiotics) <BETH Newberry Last Filed: 09/04/24 16:09> [facility] Past Medical History Medical History: Medical History Asthma Chronic back pain Chronic GERD COPD (chronic obstructive pulmonary disease) D-dimer, elevated ETOH abuse History of Clostridioides difficile colitis Hypertension Marijuana use Nicotine abuse <BETH Newberry Last Filed: 09/04/24 16:09> Surgical History Surgical History: Surgical History H/O dilation and curettage No significant past surgical history <BETH Newberry Last Filed: 09/04/24 16:09> Family History Family History: Family History Father Diabetes mellitus Mother Diabetes mellitus <Dilcia Weiss PA-C - Last Filed: 09/04/24 16:09> Social History Social History: Social History Social History: The patient lives with her significant other. Her mother and father live next door to her She smokes marijuana daily. She currently works at [employer]. She drinks a 150 oz beer daily. She is currently an every day smoker, 1pack per day for 37 years. She has 1 daughter that is 32 years old. Code status full code. Smoking packs per day: 1 Smoking cigarettes per day: 20.0 Years smoked: 37 Smoking pack-years: 37.00 Smoking status: Current every day smoker Tobacco type: cigarettes Second hand tobacco smoke exposure: No Alcohol intake: current Drinks per week: 42 Substance use: current Substance use type: marijuana Other substance usage details: 2 joints Last use: 08/29/23 Do You Feel Safe in your Home?: Yes Lack of Transportation: No Lack of Food: Never True Current Housing: I Have Housing Concerned About Future Housing: No Difficulty Paying Gas/Electric Bills: No Difficulty Paying for Meds: No Currently Unemployed: No Education: Trade/Vocational Certificate Difficulty w/ Childcare or Family Care: No Spiritual care concerns: No <Dilcia Weiss PA-C - Last Filed: 09/04/24 16:09> Exam Narrative: APPEARANCE: Older than her stated age Head: atraumatic. EYES: EOMI, NOSE: Atraumatic NECK: Trachea midline RESPIRATORY: No increased rate of breathing CTAB CARDIOVASCULAR: Tachycardic ABDOMINAL: Distended, nontender MUSCULOSKELETAl: No obvious deformities NEURO: Alert. Moving 4/4 extremities SKIN:: Warm, dry. Normal color PSYCHIATRIC: Normal affect <Jose Nielsen MD - Last Filed: 09/04/24 21:35> Course Vital Signs Vital signs: Vital Signs Temperature 98 F 09/04/24 15:49 Pulse Rate 116 H 09/04/24 15:49 Respiratory Rate 15 09/04/24 15:49 Blood Pressure 111/53 L 09/04/24 15:49 Pulse Oximetry 98 09/04/24 15:49 Oxygen Delivery Room Air 09/04/24 15:49 Temperature 98 F 09/04/24 15:49 Pulse Rate 115 H 09/04/24 20:00 Respiratory Rate 17 09/04/24 20:00 Blood Pressure 97/70 L 09/04/24 20:00 Pulse Oximetry 99 09/04/24 20:00 Oxygen Delivery Room Air 09/04/24 15:49 <Dilcia Weiss PA-C - Last Filed: 09/04/24 16:09> Vital Signs Temperature 98 F 09/04/24 15:49 Pulse Rate 116 H 09/04/24 15:49 Respiratory Rate 15 09/04/24 15:49 Blood Pressure 111/53 L 09/04/24 15:49 Pulse Oximetry 98 09/04/24 15:49 Oxygen Delivery Room Air 09/04/24 15:49 Temperature 98 F 09/04/24 15:49 Pulse Rate 115 H 09/04/24 20:00 Respiratory Rate 17 09/04/24 20:00 Blood Pressure 97/70 L 09/04/24 20:00 Pulse Oximetry 99 09/04/24 20:00 Oxygen Delivery Room Air 09/04/24 15:49 <Jose Nielsen MD - Last Filed: 09/04/24 21:35> MDM - Recheck/Abnormal Lab/Rx MDM Narrative Medical decision making narrative: MSE by FRITZ in triage. <Dilcia Weiss PA-C - Last Filed: 09/04/24 16:09> MSE by FRITZ in triage. -Course: 49-year-old female with history of liver cirrhosis presenting abnormal labs. On physical exam patient has a distended nontender abdomen. She is tachycardic. She is winded just getting undressed for the exam but maintaining her saturations. Found to have a hemoglobin of 4.3. Patient is symptomatic. Patient has a history of cold agglutinates. 3 units PRBCs ordered . Anemia lab work obtained. Digital rectal exam showed melanotic stool. CT showed liver cirrhosis with portal venous hypertension. Patient will be admitted the hospital for further workup management. <Jose Nielsen MD - Last Filed: 09/04/24 21:35> Lab Data Result diagrams: 09/04/24 16:31 09/04/24 16:31 <Dilcia Weiss PA-C - Last Filed: 09/04/24 16:09> Labs: Lab Results 09/04/24 09/04/24 09/04/24 Range/Units 16:31 16:31 19:22 WBC 7.7 (4.5-10.0) K/mm3 RBC 1.82 L (4.2-5.4) M/mm3 Hgb 4.3 L* D (12.0-15.0) g/dL Hct 15.7 L* (37.0-47.0) % MCV 86.3 (80-100) fl MCH 23.6 L (26-34) pg MCHC 27.4 L (32-36) g/dl RDW 23.1 H (11.5-14.5) % Plt Count 79 L (150-375) k/mm3 MPV 11.9 H (7.4-10.4) fl Immature Gran % (Auto) 0.7 H (0-0.5) % Neut % (Auto) 54.6 (45.5-73.1) % Lymph % (Auto) 28.6 (18.3-44.2) % [place] % (Auto) 12.0 H (2.6-8.5) % Eos % (Auto) 3.7 (0-4.4) % Baso % (Auto) 0.4 (0.2-1.2) % Lymph # (Auto) 2.19 (0.9-3.2) K/mm3 [place] # (Auto) 0.9 H (0.1-0.6) K/mm3 Eos # (Auto) 0.3 (0-0.3) K/mm3 Baso # (Auto) 0.0 (0.0-0.1) K/mm3 Abs Immat Gran (auto) 0.05 H (0.00-0.031) K/mm3 Absolute Neuts (auto) 4.2 (1.3-6.7) K/mm3 Absolute Nucleated RBC 0.050 H (0.0-0.012) K/mm3 Nucleated RBC % 0.7 H (0.0-0.2) % Platelet Estimate Decreased (Adequate) Hypochromasia 2+ Anisocytosis 3+ Schistocytes None seen Absolute Retic (0.02-0.10) 10^6/uL Percent Retic (0.7-4.3) % Immature Retic Fraction (3.0-15.9) % Retic Hgb Content (28.2-36.6) pg Haptoglobin PT 15.0 H (11.1-14.7) Seconds INR 1.1 APTT 38.9 H (22.3-36.8) Seconds Sodium 134 L (137-145) mmol/L Potassium 3.5 (3.4-5.0) mmol/L Chloride 101 (98-107) mmol/L Carbon Dioxide 26 (22-30) mmol/L Anion Gap 7 (4-12) mmol/L BUN 7 D (7-17) mg/dL Creatinine 0.67 L (0.7-1.0) mg/dL Estim Creat Clear Calc 78 ml/min Estimated GFR > 60 (59 - ) Glucose 129 H (65-110) mg/dL Calcium 8.1 L (8.4-10.2) mg/dL Iron (37-170) ug/dL TIBC % Saturation Transferrin 289 (206-381) mg/dL Ferritin Total Bilirubin 0.5 0.5 (0.2-1.3) mg/dL Direct Bilirubin 0.0 (0-0.3) mg/dL AST 35 (14-36) U/L ALT 16 (6-35) U/L Alkaline Phosphatase 117 (38-126) U/L Lactate Dehydrogenase 236 (120-246) U/L Troponin I < 0.012 (0.000-0.034) ng/mL NT-Pro-B Natriuret Pep 169 H (19.9-100) pg/mL Total Protein 7.0 (6.3-8.2) g/dL Albumin 3.0 L (3.5-5.1) g/dL Mxoey-8-Ddtxquabk Dfdnv-3-Jaqvangxc Qscu-0-Jwyvobzw Hqhx-4-Onvzzyoi Gamma Globulins Abnorm Protein Band 1 Abnorm Protein Band 3 PEP Interpretation Lipase 94 (23-300) U/L Vitamin B12 230.0 L (239-931) pg/mL Folate 18.1 (2.76->20) ng/mL TSH (Reflex) Ur Random Creatinine Pending U Random Total Protein Pending Protein/Creatinin Ratio Pending Urine Albumin Pending U Hqtkn-4-Uuemkizd Pending U Mtlea-0-Xlxonaqk Pending U Beta Globulin Pending U Gamma Globulin Pending U Abnormal Prot Band 1 Pending U Abnormal Prot Band 2 Pending U Abnormal Prot Band 3 Pending Urine PEP Interpret Pending Influenza A (RT-PCR) Negative (Negative) Influenza B (RT-PCR) Negative (Negative) RSV (RT-PCR) Negative (Negative) SARS-CoV-2 RNA (RT-PCR) Negative (Negative) Blood Type A Positive Antibody Screen Pending GREGORIA, IgG Interpret GREGORIA, Poly Interpret GREGORIA, Complement Interp Indirect Antiglob Test 09/04/24 Range/Units 19:55 WBC (4.5-10.0) K/mm3 RBC (4.2-5.4) M/mm3 Hgb (12.0-15.0) g/dL Hct (37.0-47.0) % MCV (80-100) fl MCH (26-34) pg MCHC (32-36) g/dl RDW (11.5-14.5) % Plt Count (150-375) k/mm3 MPV (7.4-10.4) fl Immature Gran % (Auto) (0-0.5) % Neut % (Auto) (45.5-73.1) % Lymph % (Auto) (18.3-44.2) % [place] % (Auto) (2.6-8.5) % Eos % (Auto) (0-4.4) % Baso % (Auto) (0.2-1.2) % Lymph # (Auto) (0.9-3.2) K/mm3 [place] # (Auto) (0.1-0.6) K/mm3 Eos # (Auto) (0-0.3) K/mm3 Baso # (Auto) (0.0-0.1) K/mm3 Abs Immat Gran (auto) (0.00-0.031) K/mm3 Absolute Neuts (auto) (1.3-6.7) K/mm3 Absolute Nucleated RBC (0.0-0.012) K/mm3 Nucleated RBC % (0.0-0.2) % Platelet Estimate (Adequate) Hypochromasia Anisocytosis Schistocytes Absolute Retic 0.10 (0.02-0.10) 10^6/uL Percent Retic 6.11 H (0.7-4.3) % Immature Retic Fraction 41.4 H (3.0-15.9) % Retic Hgb Content 20.6 L (28.2-36.6) pg Haptoglobin Pending PT (11.1-14.7) Seconds INR APTT (22.3-36.8) Seconds Sodium (137-145) mmol/L Potassium (3.4-5.0) mmol/L Chloride (98-107) mmol/L Carbon Dioxide (22-30) mmol/L Anion Gap (4-12) mmol/L BUN (7-17) mg/dL Creatinine (0.7-1.0) mg/dL Estim Creat Clear Calc ml/min Estimated GFR (59 - ) Glucose (65-110) mg/dL Calcium (8.4-10.2) mg/dL Iron 21 L (37-170) ug/dL TIBC Pending % Saturation Pending Transferrin (206-381) mg/dL Ferritin Pending Total Bilirubin (0.2-1.3) mg/dL Direct Bilirubin (0-0.3) mg/dL AST (14-36) U/L ALT (6-35) U/L Alkaline Phosphatase (38-126) U/L Lactate Dehydrogenase (120-246) U/L Troponin I (0.000-0.034) ng/mL NT-Pro-B Natriuret Pep (19.9-100) pg/mL Total Protein Pending (6.3-8.2) g/dL Albumin Pending (3.5-5.1) g/dL Nvpys-7-Szrfftngt Pending Bvarw-3-Lhitiuwsf Pending Flvt-2-Pkcfnrat Pending Zraa-9-Nnuflzly Pending Gamma Globulins Pending Abnorm Protein Band 1 Pending Abnorm Protein Band 3 Pending PEP Interpretation Pending Lipase (23-300) U/L Vitamin B12 (239-931) pg/mL Folate (2.76->20) ng/mL TSH (Reflex) Pending Ur Random Creatinine U Random Total Protein Protein/Creatinin Ratio Urine Albumin U Sdltm-3-Ecpgolxu U Pfofg-6-Ycmzqweb U Beta Globulin U Gamma Globulin U Abnormal Prot Band 1 U Abnormal Prot Band 2 U Abnormal Prot Band 3 Urine PEP Interpret Influenza A (RT-PCR) (Negative) Influenza B (RT-PCR) (Negative) RSV (RT-PCR) (Negative) SARS-CoV-2 RNA (RT-PCR) (Negative) Blood Type Antibody Screen GREGORIA, IgG Interpret 1+ GREGORIA, Poly Interpret TNP GREGORIA, Complement Interp Positive Indirect Antiglob Test Pending <Dilcia Weiss PA-C - Last Filed: 09/04/24 16:09> Lab Results 09/04/24 09/04/24 09/04/24 Range/Units 16:31 16:31 19:22 WBC 7.7 (4.5-10.0) K/mm3 RBC 1.82 L (4.2-5.4) M/mm3 Hgb 4.3 L* D (12.0-15.0) g/dL Hct 15.7 L* (37.0-47.0) % MCV 86.3 (80-100) fl MCH 23.6 L (26-34) pg MCHC 27.4 L (32-36) g/dl RDW 23.1 H (11.5-14.5) % Plt Count 79 L (150-375) k/mm3 MPV 11.9 H (7.4-10.4) fl Immature Gran % (Auto) 0.7 H (0-0.5) % Neut % (Auto) 54.6 (45.5-73.1) % Lymph % (Auto) 28.6 (18.3-44.2) % [place] % (Auto) 12.0 H (2.6-8.5) % Eos % (Auto) 3.7 (0-4.4) % Baso % (Auto) 0.4 (0.2-1.2) % Lymph # (Auto) 2.19 (0.9-3.2) K/mm3 [place] # (Auto) 0.9 H (0.1-0.6) K/mm3 Eos # (Auto) 0.3 (0-0.3) K/mm3 Baso # (Auto) 0.0 (0.0-0.1) K/mm3 Abs Immat Gran (auto) 0.05 H (0.00-0.031) K/mm3 Absolute Neuts (auto) 4.2 (1.3-6.7) K/mm3 Absolute Nucleated RBC 0.050 H (0.0-0.012) K/mm3 Nucleated RBC % 0.7 H (0.0-0.2) % Platelet Estimate Decreased (Adequate) Hypochromasia 2+ Anisocytosis 3+ Schistocytes None seen Absolute Retic (0.02-0.10) 10^6/uL Percent Retic (0.7-4.3) % Immature Retic Fraction (3.0-15.9) % Retic Hgb Content (28.2-36.6) pg Haptoglobin PT 15.0 H (11.1-14.7) Seconds INR 1.1 APTT 38.9 H (22.3-36.8) Seconds Sodium 134 L (137-145) mmol/L Potassium 3.5 (3.4-5.0) mmol/L Chloride 101 (98-107) mmol/L Carbon Dioxide 26 (22-30) mmol/L Anion Gap 7 (4-12) mmol/L BUN 7 D (7-17) mg/dL Creatinine 0.67 L (0.7-1.0) mg/dL Estim Creat Clear Calc 78 ml/min Estimated GFR > 60 (59 - ) Glucose 129 H (65-110) mg/dL Calcium 8.1 L (8.4-10.2) mg/dL Iron (37-170) ug/dL TIBC % Saturation Transferrin 289 (206-381) mg/dL Ferritin Total Bilirubin 0.5 0.5 (0.2-1.3) mg/dL Direct Bilirubin 0.0 (0-0.3) mg/dL AST 35 (14-36) U/L ALT 16 (6-35) U/L Alkaline Phosphatase 117 (38-126) U/L Lactate Dehydrogenase 236 (120-246) U/L Troponin I < 0.012 (0.000-0.034) ng/mL NT-Pro-B Natriuret Pep 169 H (19.9-100) pg/mL Total Protein 7.0 (6.3-8.2) g/dL Albumin 3.0 L (3.5-5.1) g/dL Qwsde-8-Mdejjaxop Xiotp-9-Tolmlhkor Pchz-4-Toxerxmw Zfdl-8-Hgmungci Gamma Globulins Abnorm Protein Band 1 Abnorm Protein Band 3 PEP Interpretation Lipase 94 (23-300) U/L Vitamin B12 230.0 L (239-931) pg/mL Folate 18.1 (2.76->20) ng/mL TSH (Reflex) Ur Random Creatinine Pending U Random Total Protein Pending Protein/Creatinin Ratio Pending Urine Albumin Pending U Qmrzc-9-Dbsuvlxt Pending U Prlyp-8-Zjnkdtji Pending U Beta Globulin Pending U Gamma Globulin Pending U Abnormal Prot Band 1 Pending U Abnormal Prot Band 2 Pending U Abnormal Prot Band 3 Pending Urine PEP Interpret Pending Influenza A (RT-PCR) Negative (Negative) Influenza B (RT-PCR) Negative (Negative) RSV (RT-PCR) Negative (Negative) SARS-CoV-2 RNA (RT-PCR) Negative (Negative) Blood Type A Positive Antibody Screen Pending GREGORIA, IgG Interpret GREGORIA, Poly Interpret GREGORIA, Complement Interp Indirect Antiglob Test 09/04/24 Range/Units 19:55 WBC (4.5-10.0) K/mm3 RBC (4.2-5.4) M/mm3 Hgb (12.0-15.0) g/dL Hct (37.0-47.0) % MCV (80-100) fl MCH (26-34) pg MCHC (32-36) g/dl RDW (11.5-14.5) % Plt Count (150-375) k/mm3 MPV (7.4-10.4) fl Immature Gran % (Auto) (0-0.5) % Neut % (Auto) (45.5-73.1) % Lymph % (Auto) (18.3-44.2) % [place] % (Auto) (2.6-8.5) % Eos % (Auto) (0-4.4) % Baso % (Auto) (0.2-1.2) % Lymph # (Auto) (0.9-3.2) K/mm3 [place] # (Auto) (0.1-0.6) K/mm3 Eos # (Auto) (0-0.3) K/mm3 Baso # (Auto) (0.0-0.1) K/mm3 Abs Immat Gran (auto) (0.00-0.031) K/mm3 Absolute Neuts (auto) (1.3-6.7) K/mm3 Absolute Nucleated RBC (0.0-0.012) K/mm3 Nucleated RBC % (0.0-0.2) % Platelet Estimate (Adequate) Hypochromasia Anisocytosis Schistocytes Absolute Retic 0.10 (0.02-0.10) 10^6/uL Percent Retic 6.11 H (0.7-4.3) % Immature Retic Fraction 41.4 H (3.0-15.9) % Retic Hgb Content 20.6 L (28.2-36.6) pg Haptoglobin Pending PT (11.1-14.7) Seconds INR APTT (22.3-36.8) Seconds Sodium (137-145) mmol/L Potassium (3.4-5.0) mmol/L Chloride (98-107) mmol/L Carbon Dioxide (22-30) mmol/L Anion Gap (4-12) mmol/L BUN (7-17) mg/dL Creatinine (0.7-1.0) mg/dL Estim Creat Clear Calc ml/min Estimated GFR (59 - ) Glucose (65-110) mg/dL Calcium (8.4-10.2) mg/dL Iron 21 L (37-170) ug/dL TIBC Pending % Saturation Pending Transferrin (206-381) mg/dL Ferritin Pending Total Bilirubin (0.2-1.3) mg/dL Direct Bilirubin (0-0.3) mg/dL AST (14-36) U/L ALT (6-35) U/L Alkaline Phosphatase (38-126) U/L Lactate Dehydrogenase (120-246) U/L Troponin I (0.000-0.034) ng/mL NT-Pro-B Natriuret Pep (19.9-100) pg/mL Total Protein Pending (6.3-8.2) g/dL Albumin Pending (3.5-5.1) g/dL Rqfno-6-Jkhzeaiat Pending Shrke-2-Tqkfpuwsv Pending Bluz-4-Hplfqjah Pending Chae-3-Jigeezya Pending Gamma Globulins Pending Abnorm Protein Band 1 Pending Abnorm Protein Band 3 Pending PEP Interpretation Pending Lipase (23-300) U/L Vitamin B12 (239-931) pg/mL Folate (2.76->20) ng/mL TSH (Reflex) Pending Ur Random Creatinine U Random Total Protein Protein/Creatinin Ratio Urine Albumin U Pnqgv-9-Uwvyagmu U Xalma-6-Vbbxpjir U Beta Globulin U Gamma Globulin U Abnormal Prot Band 1 U Abnormal Prot Band 2 U Abnormal Prot Band 3 Urine PEP Interpret Influenza A (RT-PCR) (Negative) Influenza B (RT-PCR) (Negative) RSV (RT-PCR) (Negative) SARS-CoV-2 RNA (RT-PCR) (Negative) Blood Type Antibody Screen GREGORIA, IgG Interpret 1+ GREGORIA, Poly Interpret TNP GREGORIA, Complement Interp Positive Indirect Antiglob Test Pending <Jose Nielsen MD - Last Filed: 09/04/24 21:35> Critical Care Time Critical Care Time Critical Care Time: Yes <Jose Nielsen MD - Last Filed: 09/04/24 21:35> Total Critical Care Time: 35 <Jose Nielsen MD - Last Filed: 09/04/24 21:35> Discharge Plan Discharge Clinical Impression: Symptomatic anemia, Cirrhosis of liver <Dilcia Weiss PA-C - Last Filed: 09/04/24 16:09> Patient Disposition: Still a Patient <Dilcia Weiss PA-C - Last Filed: 09/04/24 16:09> Condition: Stable <Dilcia Weiss PA-C - Last Filed: 09/04/24 16:09> Patient Language: Serbian <Dilcia Weiss PA-C - Last Filed: 09/04/24 16:09> Prescriptions: No Action folic acid 1 mg tablet 1 mg PO DAILY fluticasone propion-salmeterol [Advair HFA] 115-21 mcg/actuation Hfa Aerosol Inhaler 1 puff inhalation Q12HRT 30 Days Qty: 12 0RF albuterol sulfate 90 mcg/actuation HFA aerosol inhaler 1 inh inhalation QID PRN (Reason: shortness of breath or wheezing) 30 Days Qty: 8.5 0RF cyclobenzaprine 10 mg tablet 10 mg PO PRN PRN (Reason: back spasms) amitriptyline 25 mg tablet 25 mg PO PRN PRN (Reason: Sleep) ibuprofen 600 mg tablet 600 mg PO DAILY PRN (Reason: Pain) furosemide 20 mg tablet 20 mg PO DAILY PRN (Reason: swelling) metoprolol succinate 25 mg tablet extended release 24 hr 50 mg PO DAILY cephalexin 500 mg Capsule 500 mg PO Q12HR Qty: 10 0RF azithromycin 500 mg tablet 500 mg PO DAILY 5 Days Qty: 5 0RF potassium chloride 20 mEq tablet,ER particles/crystals 20 meq PO DAILY Qty: 30 0RF <Dilcia Weiss PA-C - Last Filed: 09/04/24 16:09> Follow-up/Referrals: Kalee,Kristian Kruse MD [Primary Care Provider] - <Dilcia Weiss PA-C - Last Filed: 09/04/24 16:09>
--- NOTE | 2024-09-04 16:01 | ECG_ITS ---
Test Date: 2024-09-04 19:30:13 Measurements Intervals [place] Rate: 111 P: 59 ME: 158 QRS: 48 QRSD: 89 T: 49 QT: 335 QTc: 455 Interpretive Statements SINUS TACHYCARDIA DELAYED PRECORDIAL R/S TRANSITION ABNORMAL ECG Compared to ECG 02/01/2024 20:45:48 HEART RATE HAS INCREASED Electronically Signed On 09-04-2024 19:31:53 VENDING SUPERVISOR by Foreign Tracey D.O.
[2024-09-04 16:51] LABS: INR 1.1
[2024-09-04 16:52] LABS: Partial Thromboplastin Time 38.9 Seconds (22.3-36.8)
[2024-09-04 16:56] LABS: Alanine Aminotransferase 16 U/L (6-35); Alkaline Phosphatase 117 U/L (38-126); Anion Gap 7 mmol/L (4-12); Aspartate Amino Transferase 35 U/L (14-36); Bilirubin,Total 0.5 mg/dL (0.2-1.3); Blood Urea Nitrogen 7 mg/dL (7-17); Calcium 8.1 mg/dL (8.4-10.2); Carbon Dioxide 26 mmol/L (22-30); Chloride 101 mmol/L (98-107); Estimated CRCL calculation 78 ml/min; Estimated Glomerular Filt Rate > 60; Glucose 129 mg/dL (65-110); Lipase 94 U/L (23-300); Potassium 3.5 mmol/L (3.4-5.0); Sodium 134 mmol/L (137-145)
[2024-09-04 17:03] LABS: NT Pro B Type Natriuretic Pept 169 pg/mL (19.9-100); Troponin I < 0.012 ng/mL (0.000-0.034)
--- OUTSIDE RECORDS SUMMARY | 2024-09-04 18:02 | XMS_ITS | Data Portability ---
Author Organization [place] [facility] [place], Main Office Address [address] [place] [address] Care Team Providers Care Sales Professional Bilingual Name Role Phone DAJUAN MARIE Primary Care Provider DAJUAN MARIE Referring Provider [phone] Assessment Encounter Date Assessment Date Assessment LastModified by Organization Details LastModified Time 10/15/2022 10/15/2022 small cysts left ear lobe and right hip. Options discussed with patient. We will schedule for excision under local here in the office. Risks and benefits discussed risks include bleeding, infection and numbness [email or web address] Not available 10/15/2022 12:13:07 11/03/2022 11/03/2022 Excision cyst x 2, posterior L ear and R lateral hip. Characteristic of sebaceous cyst. RTC in one week for suture removal. Contac office sooner if concerns arise. Pt agreeable. Not available 11/03/2022 12:58:30 11/10/2022 11/10/2022 s/p excision of L posterior ear and R upper thigh last week. Doing well, no post op concerns. Sutures removed today. Not available 11/10/2022 11:37:56 Plan of Treatment Reminders Order Date Submit Date Provider Last Modified By Organization Details Last Modified Time Details Appointments None record ed. Lab None record ed. Referral None record ed. Procedures None record ed. Surgeries None record ed. Imaging None record ed. Medication Orders None record ed. Patient TargetsNo targets recorded. Patient InstructionsNo instructions recorded. Reason for Referral None Reported. Results Created Date Observation Date Name Description Value Unit Range Abnormal Flag Note LastModifiedBy Organization Detail LastModifiedTime 06/19/20 21 XR, knee, 3 view No observ ation record ed. [id number] [facility] [place] [address], [place], [address], 09/16/2022 15:59:57 06/19/20 21 XR, wrist , 3 or more view No observ ation record ed. [id number] [facility] [place] [address], [place], [address], 09/16/2022 15:59:57 07/14/20 21 07/14/2021 MRI, knee, w/o contr ast [facility] [address] [address] Patien t Name: NICOLE ARNDT Access ion #: [id number] Sex: F : 1974 3 Locati on: RAD Attend ing Physic simon: GINA TAI Orderi ng Physic simon: GINA TAI Exam Date: 2020 8:28 AM Exam Name: MRI KNEE LT WO Admitt ing Diagno sis(es ): RADIOL OGY REPORT - FINAL EXAM: MRI KNEE LT WO HISTOR Y: closed fx proxim al tibia, latera l condyl e platea u COMPAR CHEO: Radiog raphs of the left knee dated 2020 TECHNI QUE: Multip lanar multis equenc e noncon trast MR images of the left knee were perfor med. FINDIN GS: There is patell ofemor al and medial joint space narrow ing. A small effusi on is noted. There is modera te to severe chondr omalac ia patell a most signif icant at the medial facet. Minima l chondr opathi c change s are seen in the medial femora l condyl e and latera l femora l condyl e. The ACL and PCL and extens or mechan isms are grossl y intact . Enthes opathi c change s are seen at Page 1 of 2 [facility] Patisahil t Name: NICOLE ARNDT Access ion #: [id number] Sex: F : 1974 3 Exam Date: 2020 8:28 AM Exam Name: MRI KNEE LT WO Admitt ing Diagno sis(es ): the patell a. A small tear of the valve and regulator repairer ior horn latera l menisc us is noted. There is a bone contus ion/no ndispl aced fractu re of the valve and regulator repairer ior aspect of the latera l tibial platea u. AV small valve and regulator repairer ior horn medial menisc al tear is noted. There is fluid/ inflam mation of Hoffa' s fat pad IMPRES ISABELLE: Small tears of the valve and regulator repairer ior horns of the medial and latera l menisc i. Bone contus ion/no ndispl aced fractu re throug h the valve and regulator repairer olater al aspect of the tibial platea u. Degene rative change s. Create d and electr onical ly signed by: Jamie Kebede ch, DO Signed Date: 2020 9:41 AM (CT) Dictat ed by: Jamie Kebede ch, DO DD: 2020 9:41 AM (CT) DT: 2020 9:41 AM (CT) Page 2 of 2 [id number] [facility] (Imaging) [address] [place], [address], 09/16/2022 15:59:57 07/31/19 22 XR, knee, 3 view No observ ation record ed. [id number] [facility] [place] [address], [place], [address], 09/16/2022 15:59:57 07/31/19 22 XR, wrist , 3 or more view No observ ation record ed. [id number] [facility] [place] [address], [place], [address], 09/16/2022 15:59:57 Result Notes None recorded. Problems Name Problem SNOMED Code Status Onset Date Resolution Date Notes Provider Name and Address Organization Details Recorded Time Tobacco user 130366614 Active Not Available [facility] 3 15:58:32 Asthma 612434938 Active Not Available [facility] 3 15:58:32 Right lower quadrant pain 017538457 Active Not Available [facility] 3 15:58:32 Tear of medial meniscus of knee 241297651 Active 2020 Not Available [facility] 3 15:58:32 Cyst of ovary 92866918 Active Not Available [facility] 3 15:58:32 Epidermoid cyst of skin 840192726 Active 2022 Jacques mendes MD [address] [facility], [address] [address], [place], [address] , [employer] 3 13:23:20 Problem Notes None recorded. Procedures Surgical History Date Name Laterality Status Provider Name and Address Organization Details Recorded Time 3 Excision Cyst Multilayer completed Jacques bejarano MD [address] [facility], [facility] [address], [place], [address], [employer] 11/03/2022 12:57:54 Imaging Results Imaging Date Name Status LastModified by Organiz ation Details LastModified Time 06/19/2021 XR, knee, 3 view completed [id number] [facility] [place] [address] [facility] [address], [place], [address], 09/16/2022 15:59:57 06/19/2021 XR, wrist, 3 or more view completed [id number] [facility] [place] [address], [place], [address], 09/16/2022 15:59:57 07/14/2021 MRI, knee, w/o contrast completed [id number] [facility] (Imaging) [address] [place], [address], 09/16/2022 15:59:57 07/31/2021 XR, knee, 3 view completed [id number] [facility] [place] [address], [place], [address], 09/16/2022 15:59:57 07/31/2021 XR, wrist, 3 or more view completed [id number] [facility] [place] [address], [place], [address], 09/16/2022 15:59:57 Procedure Notes None recorded. Medical Equipment None Reported. Allergies Allergen ID Allergen Name Allergen Category Reaction Reaction Severity Criticality Documentation Date Start Date Code Code System Note Provider Name and Address Organization Details Recorded Time 14781 Substance with sulfonami de structure and antibacte rial mechanism of action (substanc e) medicatio n headache severe Not available 09/16/2022 71567 [id number] SNOMED Not Available [facility] 15:59:53 Medications Name Sig Start Date Stop Date Status Note LastModified by Organization Details LastModified Time cyclobenzap rine 10 mg tablet TAKE 1 TABLET BY MOUTH TWICE DAILY NEEDED active Not Available Not Available No t Available clindamycin HCl 300 mg capsule TAKE 1 CAPSULE BY MOUTH THREE TIMES DAILY FOR 7 DAYS active Not Available Not Available No t Available albuterol sulfate 2.5 mg/3 mL (0.083 %) solution for nebulizatio n USE 3 ML VIA NEBULIZER THREE TIMES DAILY active Not Available Not Available No t Available fluconazole 150 mg tablet TK 1 T PO FOR 1 DOSE 04/10 completed Not Available Not Available Not Available hydrocodone 5 mg-acetamin ophen 325 mg tablet TAKE 1 TABLET BY MOUTH EVERY 6 HOURS NEEDED active Not Available Not Available No t Available phenazopyri dine 200 mg tablet TK 1 T PO TID PRN 04/10 completed Not Available Not Available Not Available amlodipine 2.5 mg tablet TAKE 1 TABLET BY MOUTH EVERY DAY active Not Available Not Available No t Available amlodipine 5 mg tablet TAKE 1 TABLET BY MOUTH EVERY DAY active Not Available Not Available No t Available ciprofloxac in 500 mg tablet TAKE 1 TABLET BY MOUTH EVERY 12 HOURS FOR 3 DAYS active Not Available Not Available No t Available tramadol 50 mg tablet TAKE 1 TABLET BY MOUTH EVERY 8 HOURS NEEDED active Not Available Not Available No t Available amitriptyli ne 25 mg tablet TAKE 1 TABLET BY MOUTH EVERY DAY active Not Available Not Available No t Available Kenalog 10 mg/mL suspension for injection In office injection administe red by the provider 07/31 completed NDC: 0003- 0494- 20 Not Available Not Available Not Available nicotine 21 mg/24 hr daily transdermal patch APPLY 1 PATCH EXTERNALL Y TO THE SKIN EVERY DAY active Not Available Not Available No t Available folic acid 1 mg tablet TAKE 1 TABLET BY MOUTH EVERY DAY active Not Available Not Available No t Available ibuprofen 600 mg tablet TAKE 1 TABLET BY MOUTH THREE TIMES DAILY NEEDED active Not Available Not Available No t Available Laxative (bisacodyl) 5 mg tablet TAKE 4 TABLETS BY MOUTH AT ONE TIME AT 2PM THE DAY BEFORE THE COLONOSCO PY active Not Available Not Available No t Available nitrofurant oin monohydrate /macrocryst als 100 mg capsule TK 1 C PO Q 12 H FOR 7 DAYS 07/31 completed Not Available Not Available Not Available lidocaine (PF) 10 mg/mL (1 %) injection solution In office injection administe red by the provider 07/31 completed NDC: 0409- 4276- 17 Not Available Not Available Not Available Gavilax 17 gram/dose oral powder MIX AND DRINK DIRECTED BY DOCTOR active Not Available Not Available No t Available ProAir RespiClick 90 mcg/actuati on breath activated INHALE 2 PUFFS BY MOUTH EVERY 4 TO 6 HOURS NEEDED FOR SHORTNESS OF BREATH OR WHEEZING active Not Available Not Available No t Available Vitals Date Recorded Body mass index (BMI) Body mass index (BMI) Body height Body height Oxygen saturation Oxygen saturation in Arterial blood by Pulse oximetry Heart rate Respiratory rate Body temperature Body weight Body weight Systolic blood pressure Diastolic blood pressure Provider Name and Address Organization Details Last Updated DateTime 3 19 kg/m2 17.6 kg/m2 157.48 cm 157.48 cm 93 % 93 % 67 /min 16 /min 98 [degF] 38253.6 1 g 77831.8 7 g 120 mm[Hg] 80 mm[Hg] Not Available [facility] 3 15:57:31 Date Recorded Body height Body mass index (BMI) Body weight Respiratory rate Body temperature Heart rate Oxygen saturation Oxygen saturation in Arterial blood by Pulse oximetry Systolic blood pressure Diastolic blood pressure Provider Name and Address Organization Details Last Updated DateTime 3 157.48 cm 20.1 kg/m2 05834.1 6 g 14 /min 98.2 [degF] 100 /min 92 % 92 % 110 mm[Hg] 70 mm[Hg] Gabbie [place] [employer] [facility] 3 11:56:43 Date Recorded Body height Body mass index (BMI) Body weight Body temperature Heart rate Respiratory rate Oxygen saturation Oxygen saturation in Arterial blood by Pulse oximetry Systolic blood pressure Diastolic blood pressure Provider Name and Address Organization Details Last Updated DateTime 3 157.48 cm 20.1 kg/m2 85984.1 6 g 98.2 [degF] 100 /min 14 /min 92 % 92 % 110 mm[Hg] 70 mm[Hg] Gabbie [place] [employer] [facility] [employer] [facility] 3 12:16:24 Date Recorded Body height Body mass index (BMI) Body weight Body temperature Heart rate Respiratory rate Oxygen saturation Oxygen saturation in Arterial blood by Pulse oximetry Systolic blood pressure Diastolic blood pressure Provider Name and Address Organization Details Last Updated DateTime 3 157.48 cm 20.1 kg/m2 89463.1 6 g 98.2 [degF] 100 /min 14 /min 92 % 92 % 110 mm[Hg] 70 mm[Hg] Gabbie [place] [employer] [facility] 3 11:30:50 Social History Question Answer Notes LastModified by Organizat ion Details LastModified Time Tobacco Smoking Status Current Every Day Smoker Not Available [facility] 09/16/2022 15:57:22 What Is Your Level Of Alcohol Consumption? Heavy [id number] 26 Information not available 09/16/2022 What Was The Date Of Your Most Recent Tobacco Screening? 04/10/2021 [id number] 26 Information not available 09/16/2022 What Is Your Current Pack Years? 30ormorepacky ears [id number].[id number] 26 Information not available 09/16/2022 At What Age Did You Start Smoking Tobacco? 12 [id number] 26 Information not available 09/16/2022 How Much Tobacco Do You Smoke? 1 PPD [id number] 26 Information not available 09/16/2022 How Many Years Have You Smoked Tobacco? 34 [id number].[id number] 26 Information not available 09/16/2022 Have You Recently Traveled Abroad? No [id number] 26 Information not available 09/16/2022 Sex: Unknown Functional Status None recorded. Mental Status None recorded. Family History Relationship Description Onset Age of this Age Resolved Age Notes LastModified by Organization Details LastModified Time Father Diabetes mellitus [id number].[id number] Not available 09/16/2022 15:57:26 Mother Hypertensive disorder [id number] Not available 09/16/2022 15:57:26 Medical History Condition Response HYPERTENSION Y ASTHMA Y Gynecological HistoryNo gynecological history recorded. Obstetrics History GPAL:G 0 P 0 0 0 0 Past Encounters Encounter ID Performer Location Encounter Start Date Encounter Closed Date Diagnosis/Indication Diagnosis SNOMED-CT Code Diagnosis ICD10 Code Diagnosis Note [id number] [facility] [place] [address] [place] [address] 04/10/2021 00:00:00 04/10/2021 11:06:18 [id number] [facility] [place] [address] [facility] [address] [place] [address] 04/17/2021 00:00:00 04/17/2021 14:46:07 [id number] [facility] [place] [address] [place] [address] 04/22/2021 00:00:00 04/22/2021 14:50:29 [id number] [facility] [place] [address] [place] [address] 05/01/2021 00:00:00 05/01/2021 15:30:54 [id number] [facility] [place] [address] [place] [address] 05/22/2021 00:00:00 05/22/2021 12:32:33 [id number] [facility] [place] [address] [place] [address] 06/10/2021 00:00:00 06/10/2021 15:18:38 [id number] [facility] [place] [address] [place] [address] 06/19/2021 00:00:00 06/19/2021 11:14:24 [id number] [facility] General Surgery [address] [address] 07/15/2021 00:00:00 07/15/2021 14:06:56 [id number] [facility] [place] [address] [place] [address] 07/31/2021 00:00:00 07/31/2021 10:33:11 [id number] Jacques mendes MD [facility] General Surgery [address] [address] 10/15/2022 11:15:01 10/15/2022 12:13:18 Epidermoid cyst of skin 669839720 L72.0 Left Ear lobe and right hip [id number] Jacques mendes MD [facility] General Surgery [address] [address] 11/03/2022 12:13:38 11/03/2022 14:15:27 Epidermoid cyst of skin 688383049 L72.0 Left Ear lobe and right hip [id number] Jacques mendes MD [facility] General Surgery [address] [address] 11/10/2022 11:12:47 11/10/2022 12:45:41 Epidermoid cyst of skin 977960908 L72.0 Left Ear lobe and right hip Removal of suture 636176 01 Z48.02 Health Concerns Section Related Observation LastModified by Organization Detai ls LastModified Time None Recorded Concern Status LastModified by Organization Details LastModified Time None Recorded Advance Directives Directive None Recorded Payers Encounter Date Sequence Insurance Name Policy Number Policy Whatley Covered Member ID Whatley Member ID Guarantor Name 10/15/[address] [facility] (MEDICAID HMO) [id number] Radha Lu Crep [id number] Radha Lu Crep 11/03/[address] [facility] (MEDICAID HMO) [id number] aRdha Lu Crep [id number] Radha Lu Crep 11/10/[address] [facility] (MEDICAID HMO) [id number] Radha Lu Crep [id number] Radha Lu Crep Notes Date Note Type Note Provider Name and Address Organization Details Recorded Time 10/15/2022 text/html patient complain s of system behind left ear and also on right hip that she has had for several years occasionally they become inflamed and painful. Jacques Zamudio MD [address], [place], [address], [employer] 10/15/2022 13:23:47 11/03/2022 text/html patient complain s of system behind left ear and also on right hip that she has had for several years occasionally they become inflamed and painful. Jacques Zamudio MD [address], [place], [address], [employer] 11/03/2022 13:55:29 11/10/2022 text/html s/p cyst excisio n of L posterior ear and R upper thigh. No cocnerns. no drainage. no fevers. Jacques Zamudio MD [address], [place], [address], [employer] 11/10/2022 12:57:55 OBGyn Episode No OBEpisode recorded.
--- OUTSIDE RECORDS SUMMARY | 2024-09-04 18:03 | XMS_ITS | Data Portability ---
Author Organization [facility] Address [address] [place] [address] Care Team Providers Care Software Requirements Engineer Name Role Phone DAJUAN WIGGINS Primary Care Provider GLORIA MICHAUD [employer] Service Technician MARCIE MORIN OTHER Assessment No assessment recorded. Plan of Treatment Reminders Order Date Submit Date Provider Last Modified By Organization Details Last Modified Time Details Appointments ANY 15 2024 02:00P Tonja Aceves, DO Not available Not available Not available Lab CBC 2024 025 [facility] (Lab), [address] [place], [address], 09/04/2024 17:01:25 CBC 2024 025 [facility] (Lab), [address] [place], [address], 09/04/2024 16:17:51 carote ne, serum 2024 025 [email or web address] [address] [place], [address], 09/01/2024 11:48:47 carote ne, serum 2024 025 [email or web address] (Lab), [address] [place], [address], 09/01/2024 11:48:47 CMP, serum or plasma 2024 025 [facility], [address], [address], [place], [address], 08/28/2024 22:06:40 Referral None record ed. Procedures None record ed. Surgeries None record ed. Imaging MAMMO, screen ing, bilate ral [address] [facility] (Radiology), [address] [place], [address], 08/28/2024 13:10:58 US, abdome n - Suspec t ascite s [address] [facility] (Radiology), [address] [place], [address], 08/28/2024 13:10:59 Medication Orders amitri ptylin e 25 mg tablet 2024 025 [id number], [address], [place], [id number], 08/28/2024 12:26:33 Patient TargetsNo targets recorded. Patient Instructions Encounter Date Encounter Id Patient Instructions Last Modified By Organization Details Last Modified Time 05/16/2024 [id number] Quitting Tobacco : Care Instructions Not available 05/16/2024 18:42:49 Hand out given o n low libido Please make sure to keep your follow up appointments [email or web address] Not available 05/16/2024 18:42:37 05/30/2024 [id number] learning about high blood pressure [email or web address] Not available 05/30/2024 16:50:40 Recommend stopping metoprolol as your blood pressure tends to be low. Follow up in 3 months for a blood pressure check. Awesome job with quitting smoking so far. [email or web address] Not available 05/30/2024 16:49:53 08/28/2024 [id number] mammogram: about this test [email or web address] Not available 08/28/2024 12:26:23 deciding about using medicines to quit smoking [email or web address] Not available 08/28/2024 12:26:23 Quitting Tobacco : Care Instructions [email or web address] Not available 08/28/2024 12:26:23 substance use disorder: care instructions [email or web address] Not available 08/28/2024 12:26:23 learning about high blood pressure [email or web address] Not available 08/28/2024 12:26:23 Reason for Referral None Reported. Results Created Date Observation Date Name Description Value Unit Range Abnormal Flag Note LastModifiedBy Organization Detail LastModifiedTime 05/11/20 24 05/11/2024 US, doppl er, venou s No observ ation record ed. [email or web address] [facility] [address], [place], [address], 05/15/2024 10:46:34 09/04/1909/04/2024 imagi ng/di agnos tic resul t No observ ation record ed. [facility] [address], [place], [address], 09/04/2024 17:32:08 Result Notes None recorded. Problems Name Problem SNOMED Code Status Onset Date Resolution Date Notes Provider Name and Address Organization Details Recorded Time Abnormal thyroid hormone 745949667 Active 2016 KAE NAYAK NP Attn: Accounting ,[address] [place], [address] , [facility] 16:42:47 [place] m 1594339 Active 2017 Quit Dajuan Wiggins MD Attn: Accounting ,[address] [place], [address] , [facility] 4 12:25:44 Macrocyti c anemia 55282786 Active 2017 KAE NAYAK NP Attn: Accounting ,[address] [place], [address] , [facility] 16:42:48 Nausea and vomiting 55589418 Active 2017 KAE NAYAK NP Attn: Accounting ,[address] [place], [address] , [place] [facility] 3 16:42:47 Fatigue 69793512 Active 2017 KAE NAYAK NP Attn: Accounting ,[address] [place], [address] , [place] [facility] 3 16:42:48 Hyperglyc emia 76281279 Active 2017 KAE NAYAK NP Attn: Accounting ,[address] [facility], [place], [address] , [place] [facility] 3 16:42:48 Elevated blood-pre ssure reading without diagnosis of hypertens ion 936798411 Completed 201703/08/2018 Kristen Suárez MD Attn: Accounting ,[address] [place], [address] , [place] [facility] 8 17:50:54 Panic attack 864926462 Active 2017 KAE NAYAK NP Attn: Accounting ,[address] [facility], [place], [address] , [place] [facility] 3 16:42:47 Essential hypertens ion 47220463 Active 2017 Dajuan Wiggins MD Attn: Accounting ,[address] [place], [address] , [place] [facility] 2 17:00:06 Tremor 92101256 Active 2017 KAE NAYAK NP Attn: Accounting ,[address] [place], [address] , [place] [facility] 3 16:42:47 Lower urinary tract symptoms 478407822 Active 2017 KAE NAYAK NP Attn: Accounting ,[address] [place], [address] , [place] [facility] 3 16:42:47 Genital herpes simplex 98208369 Active 2017 KAE NAYAK NP Attn: Accounting ,[address] [place], [address] , [place] [facility] 3 16:42:47 Tobacco dependenc e syndrome 85198946 Active 2017 KAE NAYAK NP Attn: Accounting ,[address] [place], [address] , [place] [facility] 3 16:42:48 Sprain of left knee 54757198314 862129 Active KAE NAYAK NP Attn: Accounting ,[address] [place], [address] , [place] [facility] 3 16:42:47 Effusion of joint of left knee 74315305091 9105 Active KAE NAYAK NP Attn: Accounting ,[address] [place], [address] , [place] [facility] 3 16:42:47 Liver enzymes level above reference range 830077893 Active 2020 KAE NAYAK NP Attn: Accounting ,[address], [place], [address] [place] [address] , [place] [facility] 3 16:42:47 Diarrhea 86403818 Active Not Available [facility] 2 04:58:17 Dehydrati on 29925704 Active KAE NAYAK NP Attn: Accounting ,[address] [place], [address] , [place] [facility] 3 16:42:47 Irritable bowel syndrome 25405241 Active 2021 KAE NAYAK NP Attn: Accounting ,[address] [place], [address] , [place] [facility] 3 16:42:47 Abscess of skin and/or subcutane ous tissue 51548357 Active KAE NAYAK NP Attn: Accounting ,[address] [place], [address] , [place] [facility] 3 16:42:47 Eosinophi lic colitis 02729428 Active KAE NAYAK NP Attn: Accounting ,[address], [place], [address] [place] [address] , [place] [facility] 3 16:42:47 Smoker 23554914 Active 2021 KAE NAYAK NP Attn: Accounting ,[address] [facility], [place], [place], [address] [place] [address] , [place] [facility] 3 16:42:47 Elevated blood-pre ssure reading without diagnosis of hypertens ion 220828792 Active 2017 KAE NAYAK NP Attn: Accounting ,[address] [facility], [place], [address] [place] [address] , [place] [facility] 3 16:42:47 Acute exacerbat ion of chronic obstructi ve pulmonary disease 171945175 Active Dajuan Wiggins MD Attn: Accounting ,[address] [facility], [place], [place], [address] [place] [address] , [place] [facility] 4 17:12:34 D-dimer above reference range 468785875 Active Dajuan Wiggins MD Attn: Accounting ,[address] [facility], [place], [place], [address] [place] [address] , [place] [facility] 4 17:12:34 Acute hypoxemic respirato ry failure 545913536 Active Dajuan Wiggins MD Attn: Accounting ,[address] [facility], [place], [address] [place] [address] , [place] [facility] 4 17:12:34 Lactic acidosis 81391130 Active Dajuan Wiggins MD Attn: Accounting ,[address] [facility], [place], [address] [place] [address] , [place] [facility] 4 17:12:34 Pneumonia 556411547 Active Dajuan Wiggins MD Attn: Accounting ,[address] [facility], [place], [address] [place] [address] , [place] [facility] 4 17:12:51 Hypertens calvin disorder 57399529 Active Dajuan Wiggins MD Attn: Accounting ,[address] [facility], [place], [address] [place] [address] , [place] [facility] 4 17:12:51 Seizure 70172506 Active 2023 Dajuan Wiggins MD Attn: Accounting ,[address] [facility], [place], [address] , [place] [facility] 4 17:15:14 Chronic diarrhea of unknown origin 55692494 Active 2016 KAE NAYAK NP Attn: Accounting ,[address] [facility], [place], [address] , [place] [facility] 3 16:42:47 Pigmented skin lesion 682963411 Active 2016 KAE NAYAK NP Attn: Accounting ,[address] [facility], [place], [address] , [place] [facility] 3 16:42:47 History of sepsis 92626899612 9100 Active 2016 KAE NAYAK NP Attn: Accounting ,[address] [facility], [place], [address] , [place] [facility] 3 16:42:47 Anxiety disorder 049263900 Active 2016 KAE NAYAK NP Attn: Accounting ,[address] [facility], [place], [address] , [place] [facility] 3 16:42:47 Irregular periods 70978848 Active 2016 KAE NAYAK NP Attn: Accounting ,[address] [facility], [place], [address] , [place] [facility] 3 16:42:47 Bronchiti s 98509822 Active 2016 KAE NAYAK NP Attn: Accounting ,[address] [facility], [place], [address] , [place] [facility] 3 16:42:47 Asthma 685500135 Active 2016 KAE NAYAK NP Attn: Accounting ,[address] [facility], [place], [address] , [place] [facility] 3 16:42:47 Tobacco user 134370775 Active 2016 Not Available [facility] 2 04:58:17 Notes:Some problems listed i n Documents: #[id number], #[id number] could not be added to this patient's chart. Please review these documents and add these problems to the patient's chart manually as needed. Problem Notes None recorded. Procedures Surgical History Date Name Laterality Status Provider Name and Address Organization Details Recorded Time 4 cataract surgery completed Anoop Cool MA [facility] 12/30/2023 14:58:46 4 cataract surgery completed Anoop Cool MA [facility] 12/30/2023 14:58:34 0 Most Recent Mammogram completed Poonam Murphy MA [facility] 04/24/2020 11:15:16 8 Date of Last Pap Smear completed Poonam Murphy MA [facility] 04/24/2020 11:12:58 7 Induced d&c completed Poonam Murphy MA [facility] 04/24/2020 11:20:33 5 Induced d&c completed Poonam Murphy MA [facility] 04/24/2020 11:20:25 9 Dilation and Curettage completed Poonam Murphy MA [facility] 04/24/2020 11:20:15 repair of hip completed Anoop Cool MA [facility] 02/08/2024 11:18:07 Imaging Results Imaging Date Name Status LastModified by Organiz ation Details LastModified Time 05/11/2024 US, doppler, venous [facility] [address], [place], [address], 05/15/2024 10:46:34 09/04/2024 imaging/diag nostic result active [address], [place], [address], 09/04/2024 17:32:08 Procedure Notes None recorded. Medical Equipment None Reported. Allergies Allergen ID Allergen Name Allergen Category Reaction Reaction Severity Criticality Documentation Date Start Date Code Code System Note Provider Name and Address Organization Details Recorded Time 206092 ibuprofen medicatio n vomiting severe Not available 06/28/2017 5640 RxNorm Pt state s that the 800 mg tabs only cause this react ion Not Available Not Available Not Available 029775 clindamyc in Not available vomiting mild Not available 07/17/20212020 2582 RxNorm Not Available Not Available Not Available 253192 adhesive environme nt,medica tion Not available Not available Not available 07/20/2023 78450 UNK Not Available Not Available Not Available 560042 bupropion Not available Not available Not available Not available 10/20/2023 75326 RxNorm Dehyd ratio n Not Available Not Available Not Available 06186 Substance with sulfonami de structure and antibacte rial mechanism of action (substanc e) medicatio n headache severe Not available 12/08/2016 45243 8003 SNOMED Not Available Not Available Not Available Medications Name Sig Start Date Stop Date Status Note LastModified by Organization Details LastModified Time multivitami n tablet TAKE 1 TABLET BY MOUTH ONCE DAILY WITH A MEAL active Not Available Not Available No t Available cyclobenzap rine 10 mg tablet TAKE 1 TABLET BY MOUTH TWICE DAILY NEEDED 12/30 completed Not Available Not Available Not Available amoxicillin 500 mg capsule 08/30 completed Not Available Not Available Not Available medroxyprog esterone 10 mg tablet 12/24 completed Not Available Not Available Not Available clotrimazol e 10 mg beba DISSOLVE 1 TABLET BY MOUTH FIVE TIMES DAILY 04/25 completed Not Available Not Available Not Available nystatin 100,000 unit/mL oral suspension SHAKE LIQUID AND TAKE 5 ML BY MOUTH FOUR TIMES DAILY FOR 10 DAYS 08/28 completed Not Available Not Available Not Available venlafaxine ER 37.5 mg capsule,ext ended release 24 hr Take 1 capsule every day by oral route. 12/24 completed Not Available Not Available Not Available doxycycline hyclate 100 mg capsule TAKE 1 CAPSULE BY MOUTH TWICE DAILY FOR 5 DAYS 11/15 completed Not Available Not Available Not Available clindamycin HCl 300 mg capsule TAKE 1 CAPSULE BY MOUTH THREE TIMES DAILY FOR 7 DAYS 06/02 completed Not Available Not Available Not Available albuterol sulfate 2.5 mg/3 mL (0.083 %) solution for nebulizatio n USE 3 ML VIA NEBULIZER THREE TIMES DAILY 02/02 /2022 completed Not Available Not Available Not Available cetirizine 10 mg tablet TAKE 2 TABLETS BY MOUTH DAILY 07/20 completed Not Available Not Available Not Available azithromyci n 250 mg tablet TAKE 1 TABLET BY MOUTH ONCE DAILY 02/24 completed Not Available Not Available Not Available fluconazole 150 mg tablet Take 1 tablet by oral route. 06/04 completed Not Available Not Available Not Available metoprolol succinate ER 50 mg tablet,exte nded release 24 hr TAKE 1 TABLET BY MOUTH EVERY DAY FOR BLOOD PRESSURE 05/30 completed Not Available Not Available Not Available hydrocodone 5 mg-acetamin ophen 325 mg tablet TAKE 1 TABLET BY MOUTH EVERY 6 HOURS NEEDED FOR PAIN 04/25 completed Not Available Not Available Not Available flurbiprofe n 0.03 % eye drops 04/25 completed Not Available Not Available Not Available phenazopyri dine 200 mg tablet 06/04 completed Not Available Not Available Not Available ondansetron HCl 4 mg tablet Take 1 tablet 4 times a day by oral route as needed. 09/18 completed Not Available Not Available Not Available prednisone 20 mg tablet TAKE 2 TABLETS BY MOUTH EVERY DAY 10/19 completed Not Available Not Available Not Available clonazepam 0.5 mg tablet Take 0.5 tablets twice a day by oral route. 12/24 completed Not Available Not Available Not Available metronidazo le 250 mg tablet 04/24 completed Not Available Not Available Not Available thiamine HCl (vitamin B1) 100 mg tablet Take 1 tablet every day by oral route. 04/01 completed Not Available Not Available Not Available amlodipine 2.5 mg tablet TAKE 1 TABLET BY MOUTH EVERY DAY 07/30 completed Not Available Not Available Not Available potassium chloride ER 10 mEq tablet,exte nded release TAKE 1 TABLET BY MOUTH EVERY DAY NEEDED active Not Available Not Available No t Available metronidazo le 500 mg tablet Take 1 tablet twice a day by oral route for 10 days. 09/18 completed Not Available Not Available Not Available acetaminoph en 300 mg-codeine 30 mg tablet TAKE 1 TABLET BY MOUTH EVERY 6 HOURS NEEDED FOR PAIN 04/25 completed Not Available Not Available Not Available amlodipine 5 mg tablet TAKE 1 TABLET BY MOUTH EVERY DAY 10/19 completed Not Available Not Available Not Available ciprofloxac in 500 mg tablet TAKE 1 TABLET BY MOUTH EVERY 12 HOURS FOR 3 DAYS 07/30 completed Not Available Not Available Not Available hydrocodone 10 mg-acetamin ophen 325 mg tablet 1 tablet by oral route. 04/03 completed Not Available Not Available Not Available Nicotrol 10 mg inhalation cartridge 03/09 completed Not Available Not Available Not Available tramadol 50 mg tablet TAKE 1 TABLET BY MOUTH EVERY 8 HOURS NEEDED 05/05 completed Not Available Not Available Not Available amoxicillin 500 mg tablet Take 1 tablet every 12 hours by oral route for 10 days. 06/28 completed Not Available Not Available Not Available oxycodone-a cetaminophe n 5 mg-325 mg tablet 09/15 completed Not Available Not Available Not Available potassium chloride ER 20 mEq tablet,exte nded release(par t/cryst) TAKE 1 TABLET BY MOUTH DAILY 03/09 completed Not Available Not Available Not Available amitriptyli ne 25 mg tablet Take 1 tablet every day by oral route. 2024 active Not Available Not Available Not Avai lable prednisolon e acetate 1 % eye drops,suspe nsion 11/15 completed Not Available Not Available Not Available methocarbam ol 750 mg tablet TAKE 1 TABLET BY MOUTH THREE TIMES DAILY NEEDED FOR MUSCLE PAIN active Not Available Not Available No t Available chlordiazep oxide 25 mg capsule TAKE 1 CAPSULE BY MOUTH THREE TIMES DAILY NEEDED FOR WITHDRAWA LS 10/19 completed Not Available Not Available Not Available dicyclomine 20 mg tablet 04/24 completed Not Available Not Available Not Available ciprofloxac in 0.3 % eye drops 11/15 completed Not Available Not Available Not Available phenazopyri dine 100 mg tablet 08/30 completed Not Available Not Available Not Available doxycycline monohydrate 100 mg capsule TAKE 1 CAPSULE BY MOUTH TWICE DAILY 07/20 completed Not Available Not Available Not Available cephalexin 500 mg capsule TAKE 1 CAPSULE BY MOUTH EVERY 6 HOURS FOR 10 DAYS 04/25 completed Not Available Not Available Not Available triamcinolo ne acetonide 0.1 % topical ointment APPLY THIN LAYER TOPICALLY TO THE AFFECTED AREA 2 TO 3 TIMES A DAY FOR ITCHING 07/20 completed Not Available Not Available Not Available nicotine 21 mg/24 hr daily transdermal patch APPLY 1 NEW PATCH EXTERNALL Y TO THE SKIN EVERY DAY 08/28 completed Not Available Not Available Not Available vancomycin 50 mg/mL oral solution TAKE 2.5 MLS BY MOUTH EVERY 6 HOURS FOR 25 DAYS. DISCARD REMAINDER 02/24 completed Not Available Not Available Not Available cephalexin 500 mg tablet Take 1 tablet 4 times a day by oral route for 5 days. 04/01 completed Not Available Not Available Not Available folic acid 1 mg tablet TAKE 1 TABLET BY MOUTH EVERY DAY active Not Available Not Available No t Available Replens vaginal gel Insert 1 g twice a day by vaginal route. 09/15 completed Not Available Not Available Not Available furosemide 20 mg tablet TAKE 1 TABLET BY MOUTH EVERY DAY NEEDED FOR ANKLE SWELLING active Not Available Not Available No t Available pyridoxine (vitamin B6) 100 mg tablet Take 1 tablet every day by oral route. 04/01 completed Not Available Not Available Not Available metoprolol succinate ER 25 mg tablet,exte nded release 24 hr 11/15 completed Not Available Not Available Not Available ibuprofen 600 mg tablet TAKE 1 TABLET BY MOUTH THREE TIMES DAILY NEEDED active Not Available Not Available No t Available levofloxaci n 500 mg tablet 06/28 completed Not Available Not Available Not Available levofloxaci n 750 mg tablet TAKE 1 TABLET BY MOUTH EVERY DAY 10/19 completed Not Available Not Available Not Available methylpredn isolone 4 mg tablets in a dose pack 06/28 completed Not Available Not Available Not Available albuterol sulfate HFA 90 mcg/actuati on aerosol inhaler INHALE 2 PUFFS BY MOUTH FOUR TIMES DAILY active Not Available Not Available No t Available cefdinir 300 mg capsule TAKE 1 CAPSULE BY MOUTH EVERY 12 HOURS 03/09 completed Not Available Not Available Not Available doxycycline hyclate 100 mg tablet TAKE 1 TABLET BY MOUTH TWICE DAILY FOR 10 DAYS 03/09 completed Not Available Not Available Not Available dicyclomine 10 mg capsule TAKE 1 CAPSULE BY MOUTH THREE TIMES DAILY NEEDED 07/30 completed Not Available Not Available Not Available naproxen 500 mg tablet 09/18 completed Not Available Not Available Not Available amoxicillin 875 mg-potassiu m clavulanate 125 mg tablet TAKE 1 TABLET BY MOUTH EVERY 12 HOURS FOR 5 DAYS 11/15 completed Not Available Not Available Not Available Pneumovax-2 3 25 mcg/0.5 mL injection syringe 06/02 completed Not Available Not Available Not Available azithromyci n 500 mg tablet TAKE 1 TABLET BY MOUTH DAILY FOR 5 DAYS 03/09 completed Not Available Not Available Not Available Laxative (bisacodyl) 5 mg tablet TAKE 4 TABLETS BY MOUTH AT ONE TIME AT 2PM THE DAY BEFORE THE COLONOSCO PY 06/02 completed Not Available Not Available Not Available metoprolol tartrate 25 mg tablet TAKE 1 TABLET BY MOUTH TWICE DAILY 10/19 completed Not Available Not Available Not Available nitrofurant oin monohydrate /macrocryst als 100 mg capsule TAKE 1 CAPSULE BY MOUTH EVERY 12 HOURS FOR 3 DAYS 07/17 completed Not Available Not Available Not Available M.V.I. Adult 3,300 unit-150 mcg/10 mL intravenous solution 10 mL by intraven. route. 11/10 completed Not Available Not Available Not Available vitamin A 07/20 completed Not Available Not Available Not Available Advair HFA 115 mcg-21 mcg/actuati on aerosol inhaler INHALE 1 PUFF BY MOUTH EVERY 12 HOURS 07/20 completed Not Available Not Available Not Available Gavilax 17 gram/dose oral powder MIX AND DRINK DIRECTED BY DOCTOR 06/02 completed Not Available Not Available Not Available Zenpep 10,000 unit-34,000 unit-55,000 unit capsule,del ayed release Take 1 capsule 3 times a day by oral route with meals. 06/02 completed Not Available Not Available Not Available potassium chloride ER 20 mEq tablet,exte nded release TAKE 1 TABLET BY MOUTH TWICE DAILY FOR 3 DAYS 04/25 completed Not Available Not Available Not Available bupropion HCl 150 mg tablet,12 hr sustained-r elease(smok ing deterrent) TAKE 1 TABLET BY MOUTH TWICE DAILY 08/28 completed Not Available Not Available Not Available Fluarix Quad 7493-5102 (PF) 60 mcg (15 mcg x 4)/0.5 mL IM syringe 06/02 completed Not Available Not Available Not Available Vitals Date Recorded Body height Body mass index (BMI) Body weight Heart rate Systolic blood pressure Diastolic blood pressure Provider Name and Address Organization Details Last Updated DateTime 4 157.48 cm 22.2 kg/m2 45456.1 1 g 84 /min 116 mm[Hg] 70 mm[Hg] Corine Gates MA [facility] 4 17:05:52 Date Recorded Body height Body mass index (BMI) Body weight Respiratory rate Oxygen saturation Oxygen saturation in Arterial blood by Pulse oximetry Heart rate Body temperature Systolic blood pressure Diastolic blood pressure Provider Name and Address Organization Details Last Updated DateTime 4 157.48 cm 23.4 kg/m2 28558.8 2 g 18 /min 98 % 98 % 85 /min 98.2 [degF] 102 mm[Hg] 68 mm[Hg] Zoya Mobley MA [facility] 4 15:53:43 Date Recorded Body height Body mass index (BMI) Body weight Heart rate Body temperature Pain severity - 0-10 verbal numeric rating [Score] - Reported Systolic blood pressure Diastolic blood pressure Provider Name and Address Organization Details Last Updated DateTime 4 157.48 cm 23.8 kg/m2 31388.0 1 g 91 /min 97.3 [degF] 0 104 mm[Hg] 62 mm[Hg] Kameron Judd MA [facility] 4 15:07:10 Date Recorded Body height Body mass index (BMI) Body weight Heart rate Respiratory rate Body temperature Systolic blood pressure Diastolic blood pressure Provider Name and Address Organization Details Last Updated DateTime 5 157.48 cm 26.2 kg/m2 56543.1 1 g 91 /min 16 /min 97.5 [degF] 121 mm[Hg] 76 mm[Hg] Rosa Cole MA [facility] 5 11:26:07 Date Recorded Body height Heart rate Body temperature Oxygen saturation Oxygen saturation in Arterial blood by Pulse oximetry Body mass index (BMI) Body weight Systolic blood pressure Diastolic blood pressure Provider Name and Address Organization Details Last Updated DateTime 5 157.48 cm 108 /min 98.6 [degF] 99 % 99 % 26.4 kg/m2 52204.0 2 g 111 mm[Hg] 65 mm[Hg] Hermelinda Parker [place] [facility] 15:40:30 Social History Question Answer Notes LastModified by Organization Details LastModified Time Tobacco Smoking Status Former Smoker 2 week Zoya Mobley [place] [facility] [facility] [place] - [place] 05/30/2024 15:50:51 Do You Have An Advance Directive? No Information not available 04/13/2017 What Is Your Level Of Alcohol Consumption? None Information not available 03/09/2024 How Many Years Have You Consumed Alcohol? 20 Information not available 04/13/2017 Is Anesthesia Consult Planned? No Information not available 04/13/2017 Plan No Information not available 04/13/2017 Are You Blind Or Do You Have Difficulty Seeing? No Information not available 05/05/2021 Is Blood Transfusion Acceptable In An Emergency? Yes Information not available 04/13/2017 What Is Your Level Of Caffeine Consumption? Occasional [email or web address] Information not available 08/28/2020 How Much Tobacco Do You Chew? None Information not available 04/13/2017 In The 14 Days Before Symptom Onset, Have You Had Close Contact With A Laboratory-conf irmed COVID-19 While That Case Was Ill? No [email or web address] Information not available 08/28/2020 In The 14 Days Before Symptom Onset, Have You Had Close Contact With A Person Who Is Under Investigation For COVID-19 While That Person Was Ill? No [email or web address] Information not available 08/28/2020 Have You Been To An Area Known To Be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 kidney damage, or additional issues if blood pressure is outside of recommende d ranges. Pt verbalized understand ing. Alcohol abuse 13191843 F 10.10 Post-disch arge follow-up 162693545 Z09 Recommende d patient take probiotics following c. diff infectionP t to also follow up in office or ER if she has any symptoms of difficulty breathing, sob, etc. [id number] Dajuan Wiggins MD [address] [address] 03/10/2023 16:33:16 03/11/2023 13:48:39 Insomnia 111723770 G47.00 Essential hypertension 25477017 I10 Strain of knee 509615551 1 03 S86.911A Alcoholism 7677731 F10.2 0 Sprain of left knee 1176 741424 6257366 S83.92XA [id number] Javad Aceves DO [facility] [address] [place] [address] 07/15/2023 15:21:04 07/16/2023 14:04:52 Alcoholism 6934673 F10.20 continues. We talked about alcohol rehab. Cutting back Carotene b elow reference range 340568759 R89.2 Uniform ab dominal distention 151570882 R14.0 [id number] Dajuan Wiggins MD [address] [place] [address] 07/20/2023 15:44:16 07/28/2023 10:22:03 Essential hypertension 54799886 I10 Tobacco de pendence syndrome 87347251 F17.200 Chronic ob structive pulmonary disease 80006922 J44.9 Insomnia 785607159 G47.0 0 Strain of knee 396400876 1 03 S86.911A Sprain of left knee 1176 763032 6359042 S83.92XA Screening mammography 24 362647 Z12.31 [id number] Dajuan Wiggins MD [facility] ([facility]) [address] [place] [address] 09/02/2023 12:08:14 09/03/2023 12:50:10 Alcoholism 9651766 F10.20 Essential hypertension 15439465 I10 Tobacco de pendence syndrome 87202780 F17.200 Cardiomegaly 1120543 I51 .7 [id number] Javad Aceves DO [facility] [address] [address] 09/09/2023 15:17:09 09/10/2023 11:06:16 Alcoholism 2271733 F10.20 continues. We talked about alcohol rehab. Cutting back. Still working on it. Alcoholic fatty liver 50 483354 K70.0 Chest pain 51044133 R07. 9 Tobacco de pendence syndrome 60888918 F17.200 smoking less. [id number] KAE NAYAK NP [facility] ([facility]) [address] [place] [address] 09/21/2023 15:10:15 09/24/2023 13:04:20 Seen in emergency clinic 565200155 Z76.89 Plan of care:-Refe rral to pulmo due to episodes of SOB-Refer to neuro for seizure activity Alcohol abuse 84066844 F 10.10 Plan of care:-Enga ge in AA-Provide d informatio n for program at [facility] drug rehab program History of single seizure 278318467 Z86.69 Plan of care:-Foll ow up with neurology- Discussed with patient avoidance of driving until cleared by neurology Smoker 69704991 F17.200 Plan of care:-Refe r to pulmo for recent hx of SOB-Stop smoking-Us e inhaler PRN-Go to ER if worsening of symptoms occur [id number] Javad Aceves DO [facility] [address] [place] [address] 10/14/2023 15:40:51 10/15/2023 08:00:09 Carotene below reference range 531081186 R89.2 Drink Tomatoe Juice or V 8 Daily Alcoholism 7621333 F10.2 0 continues. We talked about alcohol rehab. Cutting back. Still working on it. Macrocytic anemia 104452 05 D53.9 Liver enzy mes level above reference range 684720948 R74.01 [id number] MD Dara Carrion [facility] ([facility]) [address] [place] [address] 8 10/20/2023 15:39:38 10/21/2023 10:01:00 Alcoholism 9846824 F10.20 Pruritic rash 84165924 L 28.2 Essential hypertension 37969465 I10 Pitting edema 213182376 R60.9 Seizure 01760913 R56.9 probable result of alcohol withdrawal [id number] MD Dara Carrion [facility] ([facility]) [address] [place] [address] 8 11/16/2023 15:16:29 11/17/2023 12:30:54 Secondary thrombocytopenia 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 [id number] MD Dara Carrion [facility] ([facility]) [address] [place] [address] 8 12/30/2023 14:48:56 12/31/2023 12:54:44 Pain of left knee joint 3150966727 51407 M25.562 Bilateral hearing loss 94099241 H91.93 [id number] PEDRITO MILLER NP [facility] ([facility]) [address] [place] [address] 12/31/2023 10:56:06 01/03/2024 15:44:15 Screening for malignant neoplasm of cervix 111051295 Z12.4 ROD HANGER exam completed 1. {{Pap Pap + HPV cotesting* }} done; Last pap 03/28/2018 NILM HRHPV Negative ASCUS HRHPV Negative2. Pt is post menopausal .3. Educated on STI reduction and prevention . Encouraged condom use.4. Discussed when to return to clinic for /ROD HANGER complaints . Smoker 82508187 F17.202 [id number] Javad Aceves DO [address] [address] 01/13/2024 15:09:46 01/14/2024 07:22:14 Alcoholism 5574571 F10.20 continues. We talked about alcohol rehab. Cutting back. Still working on it. 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 7930541493 9109 F10.288 Carotene b elow reference range 450276409 R89.2 Drink tomato Juice or V 8 Daily [id number] Dajuan Wiggins MD [facility] ([facility]) [address] [place] [address] 02/08/2024 10:43:05 02/09/2024 11:40:54 Anemia 437821108 D64.9 Hypokalemia 47374993 E87 .6 Closed fra cture of hip 910827151 S72.001A [id number] Dajuan Wiggins MD [facility] ([facility]) [address] [place] [address] 03/09/2024 10:52:40 03/10/2024 14:38:43 Candidiasis of mouth 09076625 B37.0 Pain in ri ght hip joint 7109935930 27919 M25.551 3+ pitting edema 2449402 05 R60.9 Cellulitis 315116054 L03 .90 [id number] Javad Aceves DO [facility] [address] [place] [address] 03/30/2024 14:53:35 03/31/2024 09:25:37 Alcoholism 9182455 F10.20 Stopped 01-27-24 Macrocytic anemia 720916 05 D53.9 Carotene b elow reference range 622851779 R89.2 Drink tomato Juice or V 8 Daily 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 Chronic al coholic liver disease 316476995 K70.9 [id number] Dajuan Wiggins MD [facility] ([facility]) [address] [place] [address] 04/25/2024 11:12:52 04/28/2024 13:56:08 Essential hypertension 65934359 I10 Tobacco de pendence syndrome 62133576 F17.200 Pain in ri ght hip joint 9976736400 56645 M25.551 3+ pitting edema 6427186 05 R60.9 Alcoholism 5710289 F10.2 0 Candidiasis of mouth 797 95543 B37.0 Insomnia 955191943 G47.0 0 Chronic ob structive pulmonary disease 29652169 J44.9 [id number] Javad Aceves DO [facility] [address] [place] [address] 04/27/2024 14:46:40 05/01/2024 09:21:58 Alcoholism 8249926 F10.20 Stopped 01-27-24 Macrocytic anemia 046196 05 D53.9 Carotene b elow reference range 806437164 R89.2 Drink tomato Juice or V 8 Daily Chronic al coholic liver disease 185772632 K70.9 [id number] ERINN ORDAZ [facility] ([facility]) [address] [facility] [place] [address] 05/16/2024 16:53:59 05/17/2024 14:22:10 Reduced libido 0532314 R68.82 low sex drive started 3 years ago and has remained persistent .She categorize s it as disinteres t in sex, with no pain during sex.Discus sed using vaginal moisturize r (like Replens) if you have bothersome dryness.Di scussed using lubricatio n with intimacy.D iscussed trying counseling to help reduce stress levelsDisc ussed talking with partner about low sex driveHand out given on lifestyle management changes to help with low libidoRece nt TSH on 03/09/2024 WNL at 2.340 with T4 10.6Discus sed follow up with PCP to talk about low libido, review medication s for possible connection with low libido, and high stress level over past 3 years.Has follow up appointmen t with me in May after she sees her PCP Smoker 11802290 F17.200 She has been reducing the amount of cigarettes she smokes, down to a pack every four days, as well as stopping drinking starting in 01/2024. [id number] Dajuan Wiggins MD [facility] ([facility]) [address] [place] [address] 05/30/2024 15:12:40 06/16/2024 13:24:51 Essential hypertension 88234311 I10 [id number] Javad Aceves DO [facility] [address] [address] 06/01/2024 14:51:54 06/02/2024 11:02:22 Alcoholism 6873863 F10.20 Stopped 02-01-24. Will continue to improve off ETOH. Tobacco de pendence syndrome 84087717 F17.200 Stopped 05-17-24 Fatigue 84210552 R53.83 persists. Liver enzy mes level above reference range 490349228 R74.01 better [id number] Dajuan Wiggins MD [facility] ([facility]) [address] [place] [address] 08/28/2024 10:58:10 08/28/2024 17:22:59 Insomnia 295920704 G47.00 Essential hypertension 40274750 I10 Tobacco de pendence syndrome 84658120 F17.200 Alcoholism 0316388 F10.2 0 Screening mammography 24 330059 Z12.31 Adult [facility] th examination 989577035 Z00.00 [id number] Javad Aceves DO [facility] [address] [place] [address] 08/31/2024 15:07:39 09/01/2024 07:31:36 Alcoholism 8868863 F10.20 Stopped 02-01-24. Will continue to improve off ETOH. Tobacco de pendence syndrome 86900815 F17.200 Stopped 05-17-24 Fatigue 99479637 R53.83 persists. Macrocytic anemia 765376 05 D53.9 Carotene b elow reference range 369771458 R89.2 Drink tomato Juice or V 8 Daily Health Concerns Section Related Observation LastModified by Organization Detai ls LastModified Time None Recorded Concern Status LastModified by Organization Details LastModified Time None Recorded Advance Directives Directive N: Payers Encounter Date Sequence Insurance Name Policy Number Policy Whatley Covered Member ID Whatley Member ID Guarantor Name 05/16/2024 1 [employer] [place] [id number] Radha Crep [id number] Radha Crep 05/30/2024 1 [employer] [place] [id number] Radha Crep [id number] Radha Crep 06/01/2024 1 [employer] [place] [id number] Radha Crep [id number] Radha Crep 08/28/2024 1 [employer] [place] [id number] Radha Crep [id number] Radha Crep 08/31/2024 1 [employer] [place] [id number] Radha Crep [id number] Radha Crep Notes Date Note Type Note Provider Name and Address Organization Details Recorded Time 05/16/2024 text/html Radha Mendoza a [age] y.o with a history of HTN and smoking presents for low sex drive. LMP: Reports menopause since 2018. Denies any HRT. The pt states the low sex drive started 3 years ago and has remained persistent. She categorizes it as disinterest in sex, with no pain during sex.Patient is not currently sexually active with a partner. Patient has had 1 male partner for the past 10 years. The pt states she is very stressed, and has trouble sleeping. She has had significant falls in both 2020, and 2023, resulting in multiple fractures. These have contributed greatly to stress levels. The pt states she currently takes bupropion for smoking cessation and amitriptyline to help with insomnia, and methocarbamol for muscle aches, all taken as prescribed by her primary care provider. The pt states she has been reducing the amount of cigarettes she smokes, down to a pack every four days, as well as stopping drinking starting in 01/2024. The patient admits to a family history of depression, DM, HTN, stroke, breast cancer, and thyroid disorder in mother, DM and alcohol abuse in father, and alcohol abuse in brother. PEDRITO MILLER NP Attn: Accounting, [address] [place], [address], [facility] 05/16/2024 18:57:48 05/30/2024 text/html Patient is here to discuss smoking cessation, now two weeks since last cigarette. Taking wellbutrin and nicotine patch as prescribed. Complains of frequent sensation of falling since she stopped drinking alcohol 4 months ago. Dajuan Wiggins MD Attn: Accounting, [address] [place], [address], [facility] 05/30/2024 16:50:44 06/01/2024 text/html Feels OK . Still Not drinking 4 1/2 months. No tobacco in 16 days.Lab from 04-28-24 done as a out pt is noted. Better Not normal but acceptable. Feels OK. Javad Aceves DO [address] [place], [address], [facility] 06/01/2024 15:55:06 08/28/2024 text/html Patient is here for annual, complains of 13 pound weight gain and swelling in the abdomen. Quit smoking in April. Dajuan Wiggins MD Attn: Accounting, [address] [place], [address], [facility] 08/28/2024 17:22:56 08/31/2024 text/html Stopped Smoking May 17, 2024. Stopped Alcohol January 31, 2024. Has gained weight. Feels better but tired. Javad Aceves DO [address] [place], [address], [facility] 08/31/2024 15:57:45 OBGyn Episode Ob Episode Information Episode Created Date Number of Fetuses Patient Bloodtype Patient rh Status Prepregnancy Weight lbs Domestic Partner Domestic Partner Phone Father Name [employer] As[employer] Status 04/24/20 20 1 CLOSED Fetus Data First Name Last Name Admitted to NICU Weight (g) Sex Living Outcome Pediatric Complications Fetus ID Race Codes Race Delivery Type , Spontane ous [id number] Roberto Calculation Initial Roberto Date Initial Exam Date Initial Exam Provider Initial Ultrasound Date Last Menstrual Period Date Ultra Sound Weeks Gestation 0 Eighteen To Twenty Week Roberto Update Ultra Sound Date Fundal Height At Umbil Quickening Date Ultra Sound Latest Weeks Gestation Final Roberto Confirmed By Final Roberto Confirmed Date Final Roberto Date Ultra Sound Latest Days Gestation 0 0 Menstrual History Last Menstrual Date Menses Monthly On Bcp Conception Prior Menses Frequency Hcg Plus Date Menarche Onset Age Delivery Information Delivery Date Delivery Type Labor Anesthesia Weeks Gestation Incision Type Labor Labor Length Hrs Delivered By Post Complications Tubal Sterilization Discharge Date Comments 9 Discharge Information Feeding Method Contraceptive Method Maternal HG B and HCT Levels Ob Episode Information Episode Created Date Number of Fetuses Patient Bloodtype Patient rh Status Prepregnancy Weight lbs Domestic Partner Domestic Partner Phone Father Name [employer] Status 04/24/20 20 1 CLOSED Fetus Data First Name Last Name Admitted to NICU Weight (g) Sex Living Outcome Pediatric Complications Fetus ID Race Codes Race Delivery Type , Induced [id number] Roberto Calculation Initial Roberto Date Initial Exam Date Initial Exam Provider Initial Ultrasound Date Last Menstrual Period Date Ultra Sound Weeks Gestation 0 Eighteen To Twenty Week Roberto Update Ultra Sound Date Fundal Height At Umbil Quickening Date Ultra Sound Latest Weeks Gestation Final Roberto Confirmed By Final Roberto Confirmed Date Final Roberto Date Ultra Sound Latest Days Gestation 0 0 Menstrual History Last Menstrual Date Menses Monthly On Bcp Conception Prior Menses Frequency Hcg Plus Date Menarche Onset Age Delivery Information Delivery Date Delivery Type Labor Anesthesia Weeks Gestation Incision Type Labor Labor Length Hrs Delivered By Post Complications Tubal Sterilization Discharge Date Comments 5 Discharge Information Feeding Method Contraceptive Method Maternal HG B and HCT Levels Ob Episode Information Episode Created Date Number of Fetuses Patient Bloodtype Patient rh Status Prepregnancy Weight lbs Domestic Partner Domestic Partner Phone Father Name [employer] Status 04/24/20 20 1 CLOSED Fetus Data First Name Last Name Admitted to NICU Weight (g) Sex Living Outcome Pediatric Complications Fetus ID Race Codes Race Delivery Type , Induced [id number] Roberto Calculation Initial Roberto Date Initial Exam Date Initial Exam Provider Initial Ultrasound Date Last Menstrual Period Date Ultra Sound Weeks Gestation 0 Eighteen To Twenty Week Roberto Update Ultra Sound Date Fundal Height At Umbil Quickening Date Ultra Sound Latest Weeks Gestation Final Roberto Confirmed By Final Roberto Confirmed Date Final Roberto Date Ultra Sound Latest Days Gestation 0 0 Menstrual History Last Menstrual Date Menses Monthly On Bcp Conception Prior Menses Frequency Hcg Plus Date Menarche Onset Age Delivery Information Delivery Date Delivery Type Labor Anesthesia Weeks Gestation Incision Type Labor Labor Length Hrs Delivered By Post Complications Tubal Sterilization Discharge Date Comments 7 Discharge Information Feeding Method Contraceptive Method Maternal HG B and HCT Levels Ob Episode Information Episode Created Date Number of Fetuses Patient Bloodtype Patient rh Status Prepregnancy Weight lbs Domestic Partner Domestic Partner Phone Father Name [employer] Status 04/13/20 17 1 CLOSED Fetus Data First Name Last Name Admitted to NICU Weight (g) Sex Living Outcome Pediatric Complications Fetus ID Race Codes Race Delivery Type 2324.65 9 F Full Term [id number] Vaginal Roberto Calculation Initial Roberto Date Initial Exam Date Initial Exam Provider Initial Ultrasound Date Last Menstrual Period Date Ultra Sound Weeks Gestation 0 Eighteen To Twenty Week Roberto Update Ultra Sound Date Fundal Height At Umbil Quickening Date Ultra Sound Latest Weeks Gestation Final Roberto Confirmed By Final Roberto Confirmed Date Final Roberto Date Ultra Sound Latest Days Gestation 0 0 Menstrual History Last Menstrual Date Menses Monthly On Bcp Conception Prior Menses Frequency Hcg Plus Date Menarche Onset Age Delivery Information Delivery Date Delivery Type Labor Anesthesia Weeks Gestation Incision Type Labor Labor Length Hrs Delivered By Post Complications Tubal Sterilization Discharge Date Comments 1 40 [place] Discharge Information Feeding Method Contraceptive Method Maternal HG B and HCT Levels
--- OUTSIDE RECORDS SUMMARY | 2024-09-04 18:03 | XMS_ITS | Continuity of Care Document ---
Author Name [facility] Address [address] [place] [address] Organization [facility] Care Team Providers Care Pattern Gater Name Role Phone [facility] Unavailable Unavailable Problems Problem Status Onset Date Problem Type Date of Resolution Comments Source Allergic urticaria Diagnosis Adverse effect of other estrogens and progestogens, initial encounter Diagnosis Other specified industrial and construction area as the place of occurrence of the external cause Diagnosis Nicotine dependence, unspecified, uncomplicated Diagnosis Allergy status to sulfonamides status Diagnosis Allergic contact dermatitis, unspecified cause Active Diagnosis Allergies, Adverse Reactions, Alerts Substance Category Reaction Severity Reaction type Status Date Reported Comments Source ibuprofen Assertion Drug allergy Active [facility] sulfa drugs Assertion Drug allergy [facility]
[2024-09-04 18:45] LABS: Basophils Percent Auto 0.4 % (0.2-1.2); Eosinophils Absolute Auto 0.3 K/mm3 (0-0.3); Eosinophils Percent Auto 3.7 % (0-4.4); Immature Granulocyte Absolute 0.05 K/mm3 (0.00-0.031); Immature Granulocyte Percent A 0.7 % (0-0.5); Lymphocytes Absolute Auto 2.19 K/mm3 (0.9-3.2); Lymphocytes Percent Auto 28.6 % (18.3-44.2); Mean Corpuscular HGB Conc 27.4 g/dl (32-36); Mean Corpuscular Hemoglobin 23.6 pg (26-34); Mean Corpuscular Volume 86.3 fl (80-100); Mean Platelet Volume 11.9 fl (7.4-10.4); Monocytes Absolute Auto 0.9 K/mm3 (0.1-0.6); Neutrophils Absolute Auto 4.2 K/mm3 (1.3-6.7); Neutrophils Percent Auto 54.6 % (45.5-73.1); Nucleated Red Blood Cells Perc 0.7 % (0.0-0.2); Platelet Count Result 79 k/mm3 (150-375); Red Blood Count 1.82 M/mm3 (4.2-5.4); Red Cell Distribution Width 23.1 % (11.5-14.5); White Blood Count 7.7 K/mm3 (4.5-10.0)
[2024-09-04 18:49] LABS: Hematocrit 15.7 % (37.0-47.0); Hemoglobin 4.3 g/dL (12.0-15.0)
--- OUTSIDE RECORDS SUMMARY | 2024-09-04 19:00 | XMS_ITS | Referral Summary ---
Author Organization [facility] Address [address] [place] [address] Care Team Providers Care Fish Flipper Name Role Phone Kristian Granda MD Primary Care Provider [phone] Source Comments [facility],non-owned Affiliates and Associated Physician Practices is amultiple site organization consisting of ambulatory clinics and hospital sitesin [place], [place], [place] and [place]. This disclosure is being madepursuant to the Care Everywhere program and may not contain all information available regarding this patient. Last updated 18.[facility] Encounters Date Type Department Care Team Description 08/27/2024 Travel 08/27/2024 8:24 AM PRESCHOOL TEACHER'S ASSISTANT - 08/27/2024 11:59 PM PRESCHOOL TEACHER'S ASSISTANT Hospital Encounter [facility] MRI [address] [place] [address] Justina Beltre APRN-CNP Discharge Disposition: Home or Self Care 08/16/2024 Travel 08/16/2024 11:00 AM PRESCHOOL TEACHER'S ASSISTANT Office Visit [facility] - Neurology [address] [place] [address] Justina Beltre APRN-CNP Seizures (HCC) (Primary Dx) 07/06/2024 9:42 AM PRESCHOOL TEACHER'S ASSISTANT - 07/06/2024 11:59 PM PRESCHOOL TEACHER'S ASSISTANT Hospital Encounter [facility] DIAGNOSTIC RAD [facility] [address] [place] [address] Elissa Reynoso MD Discharge Disposition: Home or Self Care 07/06/2024 Travel 07/06/2024 10:15 AM PRESCHOOL TEACHER'S ASSISTANT Office Visit [facility] - Orthopedics [address] [facility] [facility] [place] [address] Elissa Reynoso MD Adams, Karra N, NUDE MODEL-EARLY CHILDHOOD ASSOCIATE TEACHER Closed displaced intertrochanteric fracture of right femur with routine healing, subsequent encounter (Primary Dx) 06/29/[address] [facility] - Orthopedics [address] [place] [address], Formerly [facility] [place] [phone] Elissa Reynoso MD Closed intertrochanteric fracture of hip, right, initial encounter (HCC) from Last 3 Months Allergies Active Allergy Reactions Criticality Noted Date Comments Sulfa Drugs Other High headaches Medications * Be aware that medications may not be up to date on this document. Alwaysverify current medications with the patient. Medication Sig Dispensed Refills Start Date End Date Status albuterol (PROVENTIL;VANDANA MAX) (2.5 MG/3ML) 0.083% nebulizer solution Inhale by mouth every 6 hours as needed for Shortness of Breath or Wheezing Active amitriptyline (Elavil) 25 MG tablet Take 1 (one) tablet by mouth once daily 02/20/2023 Active cyclobenzaprine (Flexeril) 10 MG tablet Take 1 (one) tablet by mouth 2 times daily as needed 02/20/2023 Active folic acid (Folvite) 1 MG tablet Take 1 (one) tablet by mouth once daily 02/20/2023 Active ibuprofen (Motrin) 600 MG tablet Take 1 (one) tablet by mouth 3 times daily as needed Active nicotine (Nicoderm CQ) 21 MG/24HR patch Active methocarbamol (Robaxin) 750 MG tablet Take 1 (one) tablet by mouth every 6 hours as needed for Muscle Spasms 56 tablet 01/31/2024 Active multivitamin daily tablet Take 1 (one) tablet by mouth daily with food Active buPROPion SR 12hr (Wellbutrin-SR) 150 MG tablet Take 1 (one) tablet by mouth 2 times daily Active zonisamide (Zonegran) 100 MG capsuleIndicatio ns:Seizures (HCC) Take 1 pill (100mg) nightly for 2 weeks then increase 2 pills (200mg) nightly 60 capsule 11 08/16/2024 Active traMADol (ULTRAM) 50 MG tablet Take 1 (one) tablet by mouth every 6 hours as needed 06/02/2018 5 Discontinue d(List Clean-Up) albuterol HFA (VENTOLIN HFA) 108 (90 BASE) MCG/ACT inhaler Inhale 1 (one) puff by mouth as needed 5 Discontinue d(List Clean-Up) Diphenhydramine- APAP, sleep, (TYLENOL PM EXTRA STRENGTH PO) Take by mouth nightly as needed 5 Discontinue d(List Clean-Up) Ibuprofen-Diphen hydramine Cit (ADVIL PM PO) Take by mouth as needed 5 Discontinue d(List Clean-Up) bisacodyl EC 5 MG tablet TAKE 4 TABLETS BY MOUTH AT ONE TIME AT 2PM THE DAY BEFORE THE COLONOSCOPY 5 Discontinue d(List Clean-Up) buPROPion SR 12hr (Zyban) 150 MG tablet Take 1 (one) tablet by mouth 2 times daily 09/02/2023 5 Discontinue d(Tx Complete) cetirizine (ZyrTEC) 10 MG tablet Take 2 (two) tablets by mouth once daily 01/09/2023 5 Discontinue d(List Clean-Up) chlordiazePOXIDE (Librium) 25 MG capsule TAKE 1 CAPSULE BY MOUTH THREE TIMES DAILY NEEDED FOR WITHDRAWALS 08/20/2023 5 Discontinue d(List Clean-Up) flurbiprofen 0.03% (Ocufen) 0.03 % ophthalmic solution 12/11/2023 5 Discontinue d(List Clean-Up) Advair HFA 115-21 MCG/ACT INHALE 1 PUFF BY MOUTH EVERY 12 HOURS 02/22/2023 5 Discontinue d(List Clean-Up) furosemide (Lasix) 20 MG tablet TAKE 1 TABLET BY MOUTH EVERY DAY NEEDED FOR ANKLE SWELLING 5 Discontinue d(List Clean-Up) HYDROcodone-acet aminophen (Mesick) 5-325 MG tablet Take 1 (one) tablet by mouth every 6 hours as needed 5 Discontinue d(List Clean-Up) levoFLOXacin (Levaquin) 750 MG tablet Take 1 (one) tablet by mouth once daily 08/20/2023 5 Discontinue d(List Clean-Up) metoprolol succinate XL 24hr (Toprol XL) 25 MG tablet Take 1 (one) tablet by mouth once daily 10/12/2023 5 Discontinue d(List Clean-Up) metoprolol tartrate IR (Lopressor) 25 MG tablet Take 1 (one) tablet by mouth 2 times daily 08/28/2023 5 Discontinue d(List Clean-Up) prednisoLONE acetate (Pred Forte) 1 % ophthalmic suspension 10/18/2023 5 Discontinue d(List Clean-Up) predniSONE (Deltasone) 20 MG tablet Take 2 (two) tablets by mouth once daily 08/20/2023 5 Discontinue d(List Clean-Up) triamcinolone acetonide (Kenalog) 0.1 % ointment APPLY THIN LAYER TOPICALLY TO THE AFFECTED AREA 2 TO 3 TIMES A DAY FOR ITCHING 01/09/2023 5 Discontinue d(List Clean-Up) cefdinir (Omnicef) 300 MG capsule Take 1 (one) capsule by mouth every 12 hours 4 capsule 01/31/2024 5 Discontinue d(List Clean-Up) acetaminophen-co deine (Tylenol #3) 300-30 MG tablet Take 1 (one) tablet by mouth every 6 hours as needed for Pain 40 tablet 02/17/2024 5 Discontinue d(List Clean-Up) clotrimazole (Mycelex) 10 MG beba DISSOLVE 1 TABLET BY MOUTH FIVE TIMES DAILY 03/16/2024 5 Discontinue d(List Clean-Up) nystatin (Mycostatin) 748699 UNIT/ML suspension SHAKE LIQUID AND TAKE 5 ML BY MOUTH FOUR TIMES DAILY FOR 10 DAYS 03/15/2024 5 Discontinue d(List Clean-Up) Active Problems Problem Noted Date Diagnosed Date Abscess of skin 08/16/2024 Adverse effect of other estr ogens and progestogens, initial encounter 08/16/2024 Allergic contact dermatitis, unspecified cause 0 08/16/2024 Cyst of ovary 08/16/2024 Eosinophilic colitis 08/16/2024 History of allergy to sulfonamides 08/16/2024 Lactic acidosis 08/16/2024 Other specified industrial a nd construction area as the place of occurrence of the external cause 08/16/2024 Positive D-dimer 08/16/2024 Right lower quadrant pain 08/16/2024 Effusion of left knee 08/16/2024 Smoker 05/18/2024 Pain in unspecified limb 02/18/2024 Presence of other bone and tendon implants 02/17 Right leg pain 02/04/2024 Multifocal pneumonia 02/04/2024 Hypokalemia 02/04/2024 Thigh hematoma, right, initial encounter 024 Closed intertrochanteric fracture of hip, left, sequela 02/04/2024 Closed right hip fracture, w ith delayed healing, subsequent encounter 02/04/2024 Other emphysema 02/04/2024 Acute hypoxic respiratory failure 01/29/2024 Sinus tachycardia 01/29/2024 Hyponatremia 01/29/2024 Thrombocytopenia 01/29/2024 Macrocytic anemia 01/29/2024 Fall, initial encounter 01/28/2024 Alcohol use 01/28/2024 Right hip pain 01/28/2024 Closed intertrochanteric fra cture of hip, right, initial encounter 01/28/2024 Seizure 10/20/2023 Abnormal LFTs 10/11/2023 Alcohol abuse, continuous drinking behavior 02/2024 Epidermoid cyst of skin 10/15/2022 Irritable bowel syndrome 08/19/2021 Overview (08/16/2024): Last Assessment & Plan: Condition: stable Follow up in: three months Elevated liver enzymes 07/16/2021 Tear of medial meniscus of knee 06/09/2021 Overview (08/16/2024): Last Assessment & Plan: Condition: stable Follow up in: three months Genital herpes simplex 03/30/2018 Overview (08/16/2024): Last Assessment & Plan: Condition: asymptomatic Follow up in: if symptoms worsen or fail to improve Essential hypertension 03/08/2018 Overview (08/16/2024): Last Assessment & Plan: Condition: stable Discussed target blood pressure. Continue medication as prescribed from PCP/specialist. Take medications at the same time every day. Lifestyle modification advised: DASH diet, reduce stress/anxiety, discussed health weight management, activity as tolerated or advised from PCP, try to avoid alcohol and nicotine. Follow up in: three months Lower urinary tract symptoms 03/08/2018 Tremor 03/08/2018 Overview (08/16/2024): Last Assessment & Plan: Condition: stable Follow up in: three months Amenorrhea 01/27/2018 Panic attack 12/24/2017 Elevated blood-pressure read ing without diagnosis of hypertension 11/24/2017 Thickened endometrium 11/17/2017 Cysts of both ovaries 11/17/2017 Uncomplicated asthma 09/22/2017 Noninfective gastroenteritis and colitis 018 Uncomplicated alcohol dependence 09/22/2017 Personal history of other infectious and parasit ic diseases 09/22/2017 Dorsalgia 09/22/2017 Other chronic pain 09/22/2017 Anxiety disorder 09/22/2017 Trichomoniasis 09/22/2017 Smoking history 09/22/2017 Chronic back pain 09/22/2017 Chronic diarrhea 09/22/2017 Hyperglycemia 09/15/2017 Alcoholism 09/13/2017 Fatigue 09/12/2017 Nausea and vomiting 09/12/2017 Abnormality of thyroid hormone 07/05/2017 Bronchitis 05/13/2017 Irregular periods 03/10/2017 History of sepsis 12/08/2016 Pigmented skin lesion 12/08/2016 Resolved Problems Problem Noted Date Diagnosed Date Resolved Date Dehydration 08/16/2024 08/30/2024 COPD exacerbation 01/29/2024 05/18/2024 Pneumonia 01/29/2024 02/26/2024 Urinary tract infection 09/22/201710/17 Overview (10/18/2017): reports frequent UTI Immunizations Name Administration Dates Next Due Pathfinder App primary Monoval ent 12+ yr 0.3ml 04/25/2022,01/18/2022 FLU VACCINE QUAD IIV4 SPLIT 0.25 ML IM 0 FLU VACCINE TRI IIV3 SPLIT IM (FLUVIRIN) 021 INFLUENZA VACCINE, QUADR. (F LUZONE; FLULAVAL; FLUARIX; AFLURIA QUADRIVALENT; 6MO+), 0.5 ML (IIV4) 03/06/2023,04/25/2022,04/23/2018 INFLUENZA VACCINE, RECOM-PERKINS, TRIV. (FLUBLOCK TRIVALENT; 18Y+) (RIV3) 04/22/2024 PNEUMOCOCCAL PPV VACCINE 04/23/2018 TDAP (7yrs+) 04/01/2020 Zoster Hzv Vacc Recombinant Inj Im 12/30/2023, Social History Tobacco Use Types Packs/Day Years Used Date Smoking Tobacco: Former Cigarettes 1 33 S tarted: 1989 Smokeless Tobacco: Former Alcohol Use Standard Drinks/Week Comments Yes 30 (1 standard drink = 0.6 oz pu re alcohol) 9 beers nightly AUDIT-C Answer Date Recorded Q1: How often do you have a drink containing alc ohol? Patient declined 01/28/2024 Q2: How many drinks containi ng alcohol do you have on a typical day when you are drinking? Patient declined 01/28/2024 Q3: How often do you have si x or more drinks on one occasion? Patient declined 01/28/2024 Overall Financial Resource Strain (CARDIA) Answe r Date Recorded How hard is it for you to pa y for the very basics like food, housing, medical care, and heating? Not hard at all 01/28/2024 PHQ-2 Answer Date Recorded Patient Health Questionnaire-2 Score 0 07/06/2024 [facility] Occupat ional Health - Occupational Stress Questionnaire Answer Date Recorded Do you feel stress - tense, restless, nervous, or anxious, or unable to sleep at night because your mind is troubled all the time - these days? Not at all 01/28/2024 Hunger Vital Sign Answer Date Recorded Within the past 12 months, y ou worried that your food would run out before you got the money to buy more. Never true 01/28/20 24 Within the past 12 months, t he food you bought just didn't last and you didn't have money to get more. Never true 01/28/2024 PRAPARE - Transportation Answer Date Re corded In the past 12 months, has l ack of transportation kept you from medical appointments or from getting medications? No 01/16 In the past 12 months, has l ack of transportation kept you from meetings, work, or from getting things needed for daily living? No 01/28/2024 Housing Stability Vital Sign Answer Nitesh e Recorded In the last 12 months, was t here a time when you were not able to pay the mortgage or rent on time? No 01/28/2024 In the last 12 months, how many places have you lived? 1 01/28/2024 In the last 12 months, was t here a time when you did not have a steady place to sleep or slept in a half-way (including now)? No 01/28/2024 Sex and Gender Information Value Date Recorded Sex Assigned at Not on file Gender Identity Not on file Sexual Orientation Not on file Last Filed Vital Signs Vital Sign Reading Time Taken Comments Blood Pressure 122/76 08/16/2024 10:55 AM PRESCHOOL TEACHER'S ASSISTANT Pulse 102 08/16/2024 10:55 AM PRESCHOOL TEACHER'S ASSISTANT Temperature 36.6 C (97.8 F) 05/18/2024 3:57 PM CDT Respiratory Rate 17 05/18/2024 3:57 PM CDT Oxygen Saturation 99% 08/16/2024 10:55 AM PRESCHOOL TEACHER'S ASSISTANT Inhaled Oxygen Concentration 60% 01/30/2024 5 :29 AM CDT Weight 64.2 kg (141 lb 8 oz) 08/16/2024 10:55 AM PRESCHOOL TEACHER'S ASSISTANT Height 160 cm (5' 3 ) 08/16/2024 10:55 AM PRESCHOOL TEACHER'S ASSISTANT Body Mass Index 25.07 08/16/2024 10:55 AM PRESCHOOL TEACHER'S ASSISTANT Functional Status Functional Status Response Date of Assess ment Is person deaf or have serious hearing difficult y? No 01/28/2024 Is person blind or have serious difficulty seein g? No 01/28/2024 Does person have serious dif ficulty walking/climbing stairs? No 01/28/2024 Does person have difficulty dressing/bathing? No 01/28/2024 Does person have difficulty doing errands alone? No 01/28/2024 Cognitive Status Response Date of Assessm ent Does person have difficulty concentrating/remembering/making decisions? No 01/28/2024 Plan of Treatment Upcoming Encounters Date Type Department Care Team (Late st Contact Info) Description 09/13/2024 8:30 AM PRESCHOOL TEACHER'S ASSISTANT Appointment [facility] EEG/EMG [address] [place] [phone] Justina Beltre, [employer]DE MODEL[employer]EARLY CHILDHOOD ASSOCIATE TEACHER [address] [place] [phone] 11/30/2024 2:00 PM CDT Office Visit [facility] - Pulmonology [address] [facility] [facility] [place] [address] Samm Barrow MD [facility] [address] [place] [phone] Medical Devices Implanted Type Area Circular Distributor Device Identifier Shelf Expiration Date Model / Serial / Lot [id number] 11mm/130 Deg. Ti Crystal Tfna Implanted:Qty: 1 on 01/28/2024 by Elissa Reynoso MD at [facility] Right: Hip 08/18/2031 [id number] / / [id number] [id number] Tfna Fenestrated Screw 90 Mm Implanted:Qty: 1 on 01/28/2024 by Elissa Reynoso MD at [facility] Right: Hip 10/16/2033 [id number] / / [id number] [id number] 5.0 Locking Screw Implanted:Qty: 1 on 01/28/2024 by Elissa Reynoso MD at [facility] Right: Hip [id number] / / Explanted Type Area Circular Distributor Device Identifier Shelf Expiration Date Model / Serial / Lot Bit Drl 10mm 300mm Tfn-Adv Lg Qc Crystal Explanted:Qty: 1 on 01/28/2024 at [facility] [id number] / / Procedures Procedure Name Priority Date/Time Associated Diagnosis Comments MRI BRAIN WO CONTRAST Routine 08/27/2024 9:01 AM PRESCHOOL TEACHER'S ASSISTANT Seizures (HCC) XR HIP RIGHT 2VW OR MORE Routine 07/06/2024 9:55 AM PRESCHOOL TEACHER'S ASSISTANT Closed intertrochanteric fracture of hip, right, initial encounter (HCC) RENAL FUNCTION PANEL Routine 02/10/2024 3:32 PM CDT Hypophosphatemia from Last 3 Months or Most Recently Relevant to Health Maintenance Results * MRI Brain Wo Contrast (08/27/2024 9:01 AM PRESCHOOL TEACHER'S ASSISTANT) Anatomical Region Laterality Modality Head Magnetic Resonan ce 08/30/2024 9:53 AM PRESCHOOL TEACHER'S ASSISTANT Impressions 09/03/2024 2:05 PM PRESCHOOL TEACHER'S ASSISTANT IMPRESSION: 1.There are suspected small foci of abnormal signal that follows the cortical signal on multiple sequences, for reference in the subcortical white matter of the right frontal lobe, (series 8, image 14, series 10, image 49, and series 7, image 29), which 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 2.Otherwise, no evidence of acute intracranial findings. The report is dictated by Wilder Hyde MD (manager of radiology) I, Trenton Dexter MD have personally reviewed and interpreted this examination/study. > Interpreting Provider: Trenton Dexter MD on 09/03/2024 2:05 PM Narrative 09/03/2024 2:05 PM PRESCHOOL TEACHER'S ASSISTANT PROCEDURE: MRI BRAIN WO CONTRAST, DATE/TIME OF EXAM: 08/27/2024 9:01 AM, LOCATION [facility] INDICATION: R56.9: Seizures (HCC) ADDITIONAL CLINICAL INFORMATION: Ordering Provider Reason For Exam: Epilepsy Protocol Technologist Note: None. Additional: None. EXAMINATION: Magnetic resonance imaging (MRI) of the brain without contrast TECHNIQUE: MRI of the brain was performed without intravenous contrast according to an epilepsy protocol. This included detailed coronal imaging of the hippocampi and temporal lobes. COMPARISON: No prior study is available for comparison at the time of this dictation. FINDINGS: No evidence of acute or chronic hemorrhage is identified. No evidence of acute cerebral infarction is seen. There is mild cerebral volume loss with associated ex vacuo ventricular dilatation. No mass effect or midline shift is seen. Minimal periventricular periventricular, minimal subcortical, and suspected faint pontine white matter FLAIR hyperintensities likely represent sequelae of chronic small vessel ischemic disease. Subtle flair hyperintensity in the periaqueductal licona matter, the hypothalamus, and the dorsomedial thalami is a nonspecific finding but can be seen in the setting of thiamine deficiency, in the appropriate clinical setting. Clinical correlation is recommended. Mild thinning of the corpus callosum. The corpus callosum and sella appear otherwise grossly unremarkable. The posterior fossa, brainstem, and craniocervical junction appear normal. 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 The hippocampi are overall symmetric in morphology and signal characteristics. Other than mild paranasal sinus disease, the visualized portions of the orbits, paranasal sinuses, and mastoids appear normal. Normal flow voids are demonstrated in the carotid arteries and basilar artery. Decreased T1 marrow signal of the calvarium, skull base, and visualized cervical spine is a nonspecific finding but can be seen in the setting of anemia, and the appropriate clinical setting. Clinical correlation is recommended. The calvarium and visualized cervical spine appear otherwise grossly unremarkable. Procedure Note Trenton Dexter MD - 09/03/2024 PROCEDURE: MRI BRAIN WO CONTRAST, DATE/TIME OF EXAM: 08/27/2024 9:01 AM, LOCATION [facility] INDICATION: R56.9: Seizures (HCC) ADDITIONAL CLINICAL INFORMATION: Ordering Provider Reason For Exam: Epilepsy Protocol Technologist Note: None. Additional: None. EXAMINATION: Magnetic resonance imaging (MRI) of the brain withoutcontrast TECHNIQUE: MRI of the brain was performed without intravenous contrast according to an epilepsy protocol. This included detailed coronalimaging of the hippocampi and temporal lobes. COMPARISON: No prior study is available for comparison at the time ofthis dictation. FINDINGS: No evidence of acute or chronic hemorrhage is identified. No evidence of acute cerebral infarction is seen. There is mild cerebral volume losswith associated ex vacuo ventricular dilatation. No mass effect or midlineshift is seen. Minimal periventricular periventricular, minimal subcortical,and suspected faint pontine white matter FLAIR hyperintensities likely represent sequelae of chronic small vessel ischemic disease. Subtleflair hyperintensity in the periaqueductal licona matter, the hypothalamus, andthe dorsomedial thalami is a nonspecific finding but can be seen in thesetting of thiamine deficiency, in the appropriate clinical setting. Clinical correlation is recommended. Mild thinning of the corpus callosum. The corpus callosum and sella appear otherwise grossly unremarkable. The posterior fossa, brainstem, and craniocervical junction appear normal. 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 The hippocampi are overall symmetric in morphology andsignal characteristics. Other than mild paranasal sinus disease, the visualized portions of the orbits, paranasal sinuses, and mastoids appear normal. Normal flow voids are demonstrated in the carotid arteries and basilar artery. DecreasedT1 marrow signal of the calvarium, skull base, and visualized cervicalspine is a nonspecific finding but can be seen in the setting of anemia, andthe appropriate clinical setting. Clinical correlation is recommended. The calvarium and visualized cervical spine appear otherwise grossly unremarkable. 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 2.Otherwise, no evidence of acute intracranial findings. The report is dictated by Wilder Hyde MD (manager of radiology) ITrenton MD have personally reviewed and interpretedthis examination/study. > Interpreting Provider: Trenton Dexter MD on 09/03/2024 2:05 PM Justina Beltre [facility] MR ORDERABLES * XR Hip Right 2Vw or More (07/06/2024 9:55 AM PRESCHOOL TEACHER'S ASSISTANT) Anatomical Region Laterality Modality Pelvis, Lower [facility]remity [facility] 07/06/2024 1:39 PM PRESCHOOL TEACHER'S ASSISTANT Impressions 07/06/2024 1:41 PM PRESCHOOL TEACHER'S ASSISTANT IMPRESSION: Overall no significant interval change in appearance of the right hip since the prior study. Report dictated by Valeria Lowry MD (manager of radiology). > Interpreting Provider: Evelio Nunez MD on 07/06/2024 1:41 PM Narrative 07/06/2024 1:41 PM PRESCHOOL TEACHER'S ASSISTANT PROCEDURE: XR HIP RIGHT 2VW OR MORE DATE/TIME OF EXAM: 07/06/2024 9:55 AM CLINICAL INFORMATION: None relevant/not provided if blank. Indication: S72.141A: Closed intertrochanteric fracture of hip, right, initial encounter ([facility]) Additional History: COMPARISON: Right hip radiographs dated 05/04/2024. FINDINGS: Redemonstration of intertrochanteric femur fracture status post short stem and cervical medullary nail fixation. Fracture fragments having arisen from the greater and lesser trochanters appear relatively unchanged in relative position. Right femoral head maintains anatomic relationship to the right acetabulum. Right hip joint space appears intact. Hardware is intact. Osseous alignment is unchanged. Hip joint space is normal. Procedure Note Evelio Nunez MD - 07/06/2024 PROCEDURE: XR HIP RIGHT 2VW OR MORE DATE/TIME OF EXAM: 07/06/2024 9:55 AM CLINICAL INFORMATION: None relevant/not provided if blank. Indication: S72.141A: Closed intertrochanteric fracture of hip, right, initial encounter ([facility]) Additional History: COMPARISON: Right hip radiographs dated 05/04/2024. FINDINGS: Redemonstration of intertrochanteric femur fracture status post shortstem and cervical medullary nail fixation. Fracture fragments having arisenfrom the greater and lesser trochanters appear relatively unchanged inrelative position. Right femoral head maintains anatomic relationship to theright acetabulum. Right hip joint space appears intact. Hardware is intact. Osseous alignment is unchanged. Hip joint space is normal. IMPRESSION: Overall no significant interval change in appearance of the right hipsince the prior study. Report dictated by Valeria Lowry MD (manager of radiology). > Interpreting Provider: Evelio Nunez MD on 07/06/2024 1:41 PM Elissa Reynoso MD DIAGNOSTIC IMAGING ORDERABLES * (ABNORMAL) RENAL FUNCTION PANEL (02/10/2024 3:32 PM CDT) BUN <5(L) 7 - 26 mg/dL 02/10/2024 4:57 PM CDT [facility] Creatinine 0.29(L) 0.56 - 0.96 mg/dL 02/10/2024 4:57 PM [facility] Sodium 128(L) 136 - 145 mmol/L 02/10/2024 4:57 PM [facility] Potassium 5.1(H) 3.5 - 4.5 mmol/L 02/10/2024 4:57 PM [facility] Chloride 98 98 - 107 mmol/L 02/10/2024 4:57 PM [facility] CO2 26 22 - 29 mmol/L 02/10/2024 4:57 PM [facility] Glucose 106 70 - 115 mg/dL 02/10/2024 4:57 PM [facility] Albumin 2.5(L) 3.4 - 5.0 g/dL 02/10/2024 4:57 PM [facility] Calcium 8.3(L) 8.4 - 10.2 mg/dL 02/10/2024 4:57 PM [facility] Phosphorus 2.4(L) 2.9 - 5.1 mg/dL 02/10/2024 4:57 PM [facility] Anion Gap 4(L) 6 - 16 02/10/2024 4:57 PM [facility] BUN/Creatinine Ratio <17 7 - 23 02/10/2024 4:57 PM [facility] Osmolality Calculated <264(L) 275 - 295 mOsm/kg 02/10/2024 4:57 PM [facility] eGFR by CKD-EPI >90 >=90 mL/min/1.7 3 m2 02/10/2024 4:57 PM [facility] Blood BLOOD SPECIMEN / Unknown Lab Venipuncture / Unknown 02/10/2024 3:32 PM CDT 02/10/2024 4:27 PM T Ruddy Isabel MD LAB - CHEMISTRY ORDERABLES [facility] [address] [place] [address], [facility] [phone] from Last 3 Months or Most Recently Relevant to Health Maintenance Advance Directives * Full Code (Latest Code Status on File) Date Activated Date Inactivated Comments 02/04/2024 6:39 AM 02/04/2024 8:03 PM * Full Code Date Activated Date Inactivated Comments 01/28/2024 4:34 AM 01/31/2024 6:28 PM Care Teams Fish Flipper Relationship Specialty Start Date End Date Kristian Granda MD PCP - General 08/24/18
--- OUTSIDE RECORDS SUMMARY | 2024-09-04 19:00 | XMS_ITS | Clinical Summary ---
Author Organization [facility] Address [address] [place] [address] Care Team Providers Care Lead Blender Name Role Phone Kristian rGanda MD Primary Care Provider [phone] Source Comments [facility] [employer],non-owned Affiliates and Associated Physician Practices is amultiple site organization consisting of ambulatory clinics and hospital sitesin [place], [place], [place] and [place]. This disclosure is being madepursuant to the Care Everywhere program and may not contain all information available regarding this patient. Last updated 18.[facility] [employer] Allergies Active Allergy Reactions Criticality Noted Date [...] SWELLING 5 Discontinue d(List Clean-Up) HYDROcodone-acet aminophen (Kaibeto) 5-325 MG tablet Take 1 (one) tablet [...] 03/16/2024 5 Discontinue d(List Clean-Up) nystatin (Mycostatin) 530222 UNIT/ML suspension SHAKE LIQUID AND TAKE 5 ML BY MOUTH FOUR TIMES DAILY FOR 10 DAYS 03/15/2024 Discontinue d(List Clean-Up) Active Problems Problem Noted [...] 05/18/2024 Pneumonia 01/29/2024 02/26/2024 Urinary tract infection 09/22/2017 04/12/2017 Overview (10/18/2017): reports frequent UTI Encounters Date Type Department Care Team Description 08/27/2024 8:24 AM FOXPRO DEVELOPER - 08/27/2024 11:59 PM FOXPRO DEVELOPER Hospital Encounter [facility] MRI [address] [place] [address] Justina Beltre APRN-CNP Discharge Disposition: Home or Self Care 08/27/2024 Travel 08/16/2024 11:00 AM FOXPRO DEVELOPER Office Visit [facility] - Neurology [address] [place] [phone] Justina Beltre APRN-CNP Seizures (HCC) (Primary Dx) 08/16/2024 Travel 07/06/2024 10:15 AM FOXPRO DEVELOPER Office Visit [facility] - Orthopedics [address] [place] [phone] Elissa Reynoso MD Adams, Karra N, APRN-CNP Closed displaced intertrochanteric fracture of right femur with routine healing, subsequent encounter (Primary Dx) 07/06/2024 9:42 AM FOXPRO DEVELOPER - 07/06/2024 11:59 PM FOXPRO DEVELOPER Hospital Encounter [facility] DIAGNOSTIC RAD [address] [place] [address] Elissa Reynoso MD Discharge Disposition: Home or Self Care 07/06/2024 Travel 06/29/2024 Orders Only [facility] - Orthopedics [address] [place] [phone] Elissa Reynoso MD Closed intertrochanteric fracture of hip, right, initial encounter (HCC) from Last 3 Months Immunizations Name Administration Dates Next Due Lemoptix primary Monoval ent 12+ yr 0.3ml 04/25/2022,01/18/2022 FLU VACCINE QUAD IIV4 SPLIT 0.25 ML IM 0 FLU VACCINE TRI IIV3 SPLIT IM (FLUVIRIN) 021 INFLUENZA VACCINE, QUADR. (F LUZONE; FLULAVAL; FLUARIX; AFLURIA QUADRIVALENT; 6MO+), 0.5 ML (IIV4) 03/06/2023,04/25/2022,04/23/2018 INFLUENZA VACCINE, RECOM-PERKINS, TRIV. (FLUBLOCK TRIVALENT; 18Y+) (RIV3) 04/22/2024 PNEUMOCOCCAL PPV VACCINE 04/23/2018 TDAP (7yrs+) 04/01/2020 Zoster Hzv Vacc Recombinant Inj Im 12/30/2023, Family History Medical History Relation Name Comments Diabetes - Type 2 Father Diabetes - Type 2 Mother Thyroid Disease Mother Relation Name Status Comments Father Mother Social History Tobacco Use Types Packs/Day Years [...] Recorded Patient Health Questionnaire-2 Score 0 07/06/2024 [facility] - Occupational Stress [...] place to sleep or slept in a fci (including now)? No 01/28/2024 Sex and Gender Information Value Date Recorded Sex Assigned at Not on file Gender Identity Not on file Sexual Orientation Not on file Last Filed Vital Signs Vital Sign Reading Time Taken Comments Blood Pressure 122/76 08/16/2024 10:55 AM FOXPRO DEVELOPER Pulse 102 08/16/2024 10:55 AM FOXPRO DEVELOPER Temperature 36.6 C (97.8 F) 05/18/2024 3:57 PM CDT Respiratory Rate 17 05/18/2024 3:57 PM CDT Oxygen Saturation 99% 08/16/2024 10:55 AM FOXPRO DEVELOPER Inhaled Oxygen Concentration 60% 01/30/2024 5 :29 AM CDT Weight 64.2 kg (141 lb 8 oz) 08/16/2024 10:55 AM FOXPRO DEVELOPER Height 160 cm (5' 3 ) 08/16/2024 10:55 AM FOXPRO DEVELOPER Body Mass Index 25.07 08/16/2024 10:55 AM FOXPRO DEVELOPER Plan of Treatment Upcoming Encounters Date Type Department Care Team (Late st Contact Info) Description 09/13/2024 8:30 AM FOXPRO DEVELOPER Appointment [facility] EEG/EMG [address] [place] [phone] Justina Beltre, MACHINE CARTON MARKER-DATA BASE DESIGN ANALYST [address] [place] [phone] 11/30/2024 2:00 PM CDT Office Visit [facility] - Pulmonology [address] [facility] [place] [address] Samm Barrow MD [address] [phone] Health Maintenance Due Date Last Done Comments COLOGUARD (AGES 45-75) - COLON CA SCREENING 1973 COLON MONITORING 1973 COLONOSCOPY - COLON CA SCREENING 1973 CT COLONOGRAPHY - COLON CA SCREENING 1973 Colorectal Cancer Screening 1973 FIT - COLON CA SCREENING 1973 FLEX SIG - COLON CA SCREENING 1973 LIPID TESTING 1973 MAMMOGRAM 1973 PAP SMEAR 1973 HIV SCREENING 01/27/1988 HEPATITIS C SCREENING 01/22/1991 HEPATITIS B VACCINE (1 of 3 - 19+ 3-dose series) 01/27/1992 PNEUMOCOCCAL VACCINE 50+ (2 of 2 - PCV) 04/23/2019 04/23/2018 COVID-19 VACCINE ( season) 2024 04/25/2022, 04/25/2022, 01/18/2022, Additional history exists DEPRESSION SCREENING 07/19/2024 03/23/2024 SCREENING FOR DIABETES 02/09/2027 , 02/04/2024, 02/04/2024, Additional history exists DTAP/TDAP/TD VACCINES (2 - Td or Tdap) 04/01/2030 04/01/2020 ZOSTER VACCINE Completed 12/30/2023, 03/06/2023 INFLUENZA VACCINE Completed 04/22/2024, , 04/25/2022, Additional history exists HIB VACCINE Aged Out No longer eligi ble based on patient's age to complete this topic HPV VACCINE Aged Out No longer eligi ble based on patient's age to complete this topic MENINGOCOCCAL (Group B) VACCINE Aged Out No longer eligible based on patient's age to complete this topic MENINGOCOCCAL VACCINE Aged Out No gaby kyaw eligible based on patient's age to complete this topic Medical Devices Implanted Type Area Thread Drawer Device Identifier Shelf Expiration Date Model / Serial / Lot [id number] 11mm/130 Deg. Ti Crystal Tfna Implanted:Qty: 1 on 01/28/2024 by Elissa Reynoso MD at [facility] Right: Hip 08/18/2031 [id number] / / [id number] [id number] Tfna Fenestrated Screw 90 Mm Implanted:Qty: 1 on 01/28/2024 by Elissa Reynoso MD at [facility] Right: Hip 10/16/2033 [id number] / / [id number] 5.0 Locking Screw Implanted:Qty: 1 on 01/28/2024 by Elissa Reynoso MD at [facility] Right: Hip [id number] / / Explanted Type Area Thread Drawer Device Identifier Shelf Expiration Date Model / Serial / Lot Bit Drl 10mm 300mm Tfn-Adv Lg Qc Crystal Explanted:Qty: 1 on 01/28/2024 at [facility] [employer] [id number] / / Procedures Procedure Name Priority Date/Time Associated Diagnosis Comments MRI BRAIN WO CONTRAST Routine 08/27/2024 9:01 AM FOXPRO DEVELOPER Seizures (HCC) XR HIP RIGHT 2VW OR MORE Routine 07/06/2024 9:55 AM [employer] DEVELOPER Closed intertrochanteric fracture of hip, right, initial encounter (HCC) RENAL FUNCTION PANEL Routine 02/10/2024 3:32 PM CDT Hypophosphatemia from Last 3 Months or Most Recently Relevant to Health Maintenance Results * MRI Brain Wo Contrast (08/27/2024 9:01 AM FOXPRO DEVELOPER) Anatomical Region Laterality Modality Head Magnetic Resonan ce 08/30/2024 9:53 AM [employer]PRO DEVELOPER Impressions 09/03/2024 2:05 PM [employer]PRO DEVELOPER IMPRESSION: 1.There are suspected small foci of [...] report is dictated by Wilder Hyde MD (radiology teacher) Trenton Castaneda MD have personally reviewed and interpreted this examination/study. > Interpreting Provider: Trenton Dexter MD on 09/03/2024 2:05 PM Narrative 09/03/2024 2:05 PM FOX[employer] DEVELOPER PROCEDURE: MRI BRAIN WO CONTRAST, DATE/TIME OF EXAM: 08/27/2024 9:01 AM, LOCATION [facility] INDICATION: R56.9: Seizures (HCC) ADDITIONAL [...] DATE/TIME OF EXAM: 08/27/2024 9:01 AM, LOCATION [facility] INDICATION: R56.9: Seizures (HCC) ADDITIONAL [...] report is dictated by Wilder Hyde MD (radiology teacher) I, Trenton Dexter MD have personally reviewed and interpretedthis examination/study. > Interpreting Provider: Trenton Dexter MD on 09/03/2024 2:05 PM Justina Beltre MACHINE CARTON MARKER-DATA BASE DESIGN ANALYST MR ORDERABLES * XR Hip Right 2Vw or More (07/06/2024 9:55 AM FOX[employer] DEVELOPER) Anatomical Region Laterality Modality Pelvis, Lower Extremity Radiogra [facility] 07/06/2024 1:39 PM FOXPRO DEVELOPER Impressions 07/06/2024 1:41 PM [employer] DEVELOPER IMPRESSION: Overall no significant interval change in appearance of the right hip since the prior study. Report dictated by Valeria Lowry MD (radiology teacher). > Interpreting Provider: Evelio Nunez MD on 07/06/2024 1:41 PM Narrative 07/06/2024 1:41 PM FOXPRO DEVELOPER PROCEDURE: XR HIP RIGHT 2VW OR MORE DATE/TIME OF EXAM: 07/06/2024 9:55 AM CLINICAL INFORMATION: None relevant/not provided if blank. Indication: S72.141A: Closed intertrochanteric fracture of hip, right, initial encounter ([facility]) Additional History: COMPARISON: Right hip radiographs dated [...] intertrochanteric fracture of hip, right, initial encounter ([facility]) Additional History: COMPARISON: Right hip radiographs dated [...] study. Report dictated by Valeria Lowry MD (radiology teacher). > Interpreting Provider: Evelio Nunez MD on 07/06/2024 1:41 PM Elissa Reynoso MD DIAGNOSTIC IMAGING ORDERABLES * (ABNORMAL) RENAL FUNCTION PANEL (02/10/2024 3:32 PM CDT) BUN <5(L) 7 - 26 mg/dL 02/10/2024 4:57 PM [facility] Creatinine 0.29(L) 0.56 - 0.96 mg/dL 02/10/2024 4:57 PM [facility] Sodium 128(L) 136 - 145 mmol/L 02/10/2024 4:57 PM [facility] Potassium 5.1(H) 3.5 - 4.5 mmol/L 02/10/2024 4:57 PM [facility] Chloride 98 98 - 107 mmol/L 02/10/2024 4:57 PM [facility] CO2 26 22 - 29 mmol/L 02/10/2024 4:57 PM [facility] Glucose 106 70 - 115 mg/dL 02/10/2024 4:57 PM [facility] Albumin 2.5(L) 3.4 - 5.0 g/dL 02/10/2024 4:57 PM [facility] Calcium 8.3(L) 8.4 - 10.2 mg/dL 02/10/2024 4:57 PM CDT [facility] Phosphorus 2.4(L) 2.9 - 5.1 mg/dL 02/10/2024 4:57 PM T [facility] Anion Gap 4(L) 6 - 16 02/10/2024 4:57 PM T [facility] BUN/Creatinine Ratio <17 7 - 23 02/10/2024 4:57 PM [facility] Osmolality Calculated <264(L) 275 - 295 mOsm/kg 02/10/2024 4:57 PM [facility] eGFR by CKD-EPI >90 >=90 mL/min/1.7 3 m2 02/10/2024 4:57 PM [facility] Blood BLOOD SPECIMEN / Unknown Lab Venipuncture / Unknown 02/10/2024 3:32 PM CDT 02/10/2024 4:27 PM CDT Ruddy Isabel MD LAB - CHEMISTRY ORDERABLES Performing Organization Address City/[facility]/ZIP Co de Phone Number [facility] [address] [place] [address], [facility] [phone] from Last 3 Months or Most Recently Relevant to Health Maintenance Advance Directives * Full Code (Latest Code Status on File) Date Activated Date Inactivated Comments 02/04/2024 6:39 AM 02/04/2024 8:03 PM * Full Code Date Activated Date Inactivated Comments 01/28/2024 4:34 AM 01/31/2024 6:28 PM Care Teams Lead Blender Relationship Specialty Start Date End Date Kristian Granda MD PCP - General 08/24/18
--- OUTSIDE RECORDS SUMMARY | 2024-09-04 19:00 | XMS_ITS | Encounter Summary ---
Author Organization [facility] Address [address] [place] [address] Phone Care Team Providers Care Loss Prevention Representative Name Role Phone Kristian Granda MD Primary Care Provider [phone] Adali Johnson MD Unavailable Encounter Details Date Type Department Care Team ([facility] Contact Info) Description 04/05/2024 Telephone [facility] [address] [address] Adali Johnson MD [address] [place] [phone] Social History Tobacco Use Types Packs/Day Years Used Date Smoking Tobacco: Every Day Cigarettes Smokeless Tobacco: Never Comments:Pt states she's ge tting there on quitting. Alcohol Use Standard Drinks/Week Comments Not Currently 0 (1 standard drink = 0.6 oz pur e alcohol) Comments No Sex and Gender Information Value Date Recorded Sex Assigned at Female 09/15/2023 8:24 PM ENROLLMENT MANAGEMENT DIRECTOR Legal Sex Female 8:09 PM ENROLLMENT MANAGEMENT DIRECTOR Gender Identity Female 09/15/2023 8:24 PM ENROLLMENT MANAGEMENT DIRECTOR Sexual Orientation Not on file documented as of this encounter Plan of Treatment Upcoming Encounters Date Type Department Care Team ([facility] Contact Info) Description 09/26/2024 10:00 AM CDT Lab [facility] [address] [address] Lab, [facility] 09/26/2024 10:15 AM CDT Office Visit [facility] [address] [phone] Adali Johnson MD [address] [place] [address] documented as of this encounter Visit Diagnoses Not on filedocumented in this encounter Care Teams Loss Prevention Representative Relationship Specialty Start Date End Date Kristian Granda MD [address] [place] [address] PCP - General Family Medicine 09/15/23 Adali Johnson MD [address] [place] [address] Consulting Physician Oncology 01/18/24 documented as of this encounter
--- OUTSIDE RECORDS SUMMARY | 2024-09-04 19:00 | XMS_ITS | Clinical Summary ---
Author Organization [facility] Address [address] [place] [address] Phone Care Team Providers Care Bulk System Operator Name Role Phone Kristian Granda MD Primary Care Provider [phone] Adali Johnson MD Unavailable Allergies Active Allergy Reactions Criticality Noted Date Comments Sulfa Antibiotics Other (see Comments) 09/15/19 24 headache Wound Dressing Adhesive Rash 12/15/2023 Medications folic acid (FOLVITE) 1 MG Tablet Take 1 mg by mouth daily. Active ibuprofen (MOTRIN) 600 MG Tablet TAKE 1 TABLET BY MOUTH THREE TIMES DAILY NEEDED Active furosemide (LASIX) 20 MG Tablet TAKE 1 TABLET BY MOUTH EVERY DAY NEEDED FOR ANKLE SWELLING Active amitriptyline (ELAVIL) 25 MG Tablet Take 1 Tablet by mouth daily. 3 Active cyclobenzaprine (FLEXERIL) 10 MG Tablet TAKE 1 TABLET BY MOUTH TWICE DAILY NEEDED 3 Active Albuterol Sulfate (ProAir RespiClick) 108 (90 Base) MCG/ACT AEROSOL POWDER, BREATH ACTIVATED INHALE 2 PUFFS BY MOUTH EVERY 4 TO 6 HOURS NEEDED FOR SHORTNESS OF BREATH OR WHEEZING Active clotrimazole (MYCELEX) 10 MG Cirilo DISSOLVE 1 TABLET BY MOUTH FIVE TIMES DAILY 4 Active methocarbamol (ROBAXIN) 750 MG Tablet Take 750 mg by mouth. 4 Active potassium chloride CR (KLORCON) 10 MEQ Tablet Controlled Release TAKE 1 TABLET BY MOUTH EVERY DAY NEEDED 4 Active Active Problems No known active problems Encounters Date Type Department Care Team Description 06/27/2024 10:15 AM SHOP FITTER [facility] Visit [facility] [address] [phone] Adali Johnson MD Thrombocytopenia (HCC) (Primary Dx); Elevated LFTs; Elevated ferritin; Other cirrhosis of liver (HCC) 06/27/2024 10:00 AM SHOP FITTER Lab [facility] [address] [phone] Lab, Cc [place] Elevated ferritin; Thrombocytopenia (HCC); Elevated LFTs; Alcoholism (HCC) 06/27/2024 Travel from Last 3 Months Family History Medical History Relation Name Comments Alcohol Abuse Brother Alcohol Abuse Father Diabetes Father High Cholesterol Father Hypertension Father Cancer Mother breast Depression Mother Diabetes Mother Hypertension Mother Stroke Mother Thyroid Disease Mother Relation Name Status Comments Brother Alive Child Alive Father Alive Mother Alive Social History Tobacco Use Types Packs/Day Years Used Date Smoking Tobacco: Former Cigarettes Q uit: 04/2024 Smokeless Tobacco: Never Tobacco Cessation:Counseling Given: Yes Comments:Pt states she's getting there on quitting. Alcohol Use Standard Drinks/Week Comments Not Currently 0 (1 standard drink = 0.6 oz pur e alcohol) Comments No Sex and Gender Information Value Date Recorded Sex Assigned at Female 09/15/2023 8:24 PM SHOP FITTER Legal Sex Female 8:09 PM SHOP FITTER Gender Identity Female 09/15/2023 8:24 PM SHOP FITTER Sexual Orientation Not on file Last Filed Vital Signs Vital Sign Reading Time Taken Comments Blood Pressure 130/76 06/27/2024 10:21 AM SHOP FITTER Pulse 90 06/27/2024 10:21 AM SHOP FITTER Temperature 36.7 C (98.1 F) 06/27/2024 10:21 AM SHOP FITTER Respiratory Rate 18 06/27/2024 10:21 AM SHOP FITTER Oxygen Saturation 99% 06/27/2024 10:21 AM SHOP FITTER Inhaled Oxygen Concentration - - Weight 61.7 kg (136 lb) 06/27/2024 10:21 AM SHOP FITTER Height 158.8 cm (5' 2.5 ) 06/27/2024 10:21 AM CS T Body Mass Index 24.48 06/27/2024 10:21 AM SHOP FITTER Plan of Treatment Upcoming Encounters Date Type Department Care Team (Late st Contact Info) Description 09/26/2024 10:00 AM CDT Lab [facility] [address] [phone] Lab, Cc [facility] 09/26/2024 10:15 AM CDT Office Visit [facility] [address] [phone] Adali Johnson MD [address] [place] [phone] Health Maintenance Due Date Last Done Comments Hepatitis B Immunization (1 of 3 - 19+ 3-dose series) 01/27/1992 Pap Smear 1994 Cervical Cancer Screening (CCS) 2003 HPV/Cotest 2003 Colonoscopy 2018 Colorectal Cancer Screening 2018 Pneumococcal Immunization (50+ years) (2 of 2 - PCV) 04/23/2019 04/23/2018 Cologuard 2023 Immunochemical Fecal Occult Blood 2023 Mammogram 2023 Respiratory Syncytial Virus (RSV) Immunization (Adult) (1 - 1-dose 75+ series) 01/27/2048 Pneumococcal Immunization Combined Discontinued 04/23/2018 DTaP/Tdap/Td Immunization Discontinued 04/01/2020 TdaP Immunization Completed 04/01/2020 Hepatitis C Virus (HCV) Screening Completed 12/15/2023 Zoster Immunization Completed 12/30/2023, 3 Influenza Immunization Completed 4, 03/06/2023, 04/25/2022, Additional history exists SARS-COV-2 Immunization Completed 04/22/20 24, 04/25/2022, 01/18/2022, Additional history exists Meningococcal Immunization (ACWY) Aged Out No longer eligible based on patient's age to complete this topic Rotavirus Immunization Aged Out No lo nger eligible based on patient's age to complete this topic Procedures Procedure Name Priority Date/Time Associated Diagnosis Comments FERRITIN [id number] Routine 06/27/2024 10 :16 AM SHOP FITTER IRON AND TIBC [id number] [place] Routine 06/27/2024 10:16 AM SHOP FITTER COMPLETE BLOOD COUNT (CBC) WITH DIFF Routine 06/27/2024 10:16 AM SHOP FITTER Thrombocytopenia (HCC) Elevated LFTs Alcoholism (HCC) Elevated ferritin CMP (COMPREHENSIVE METABOLIC PANEL) Routine 06/27/2024 10:16 AM SHOP FITTER Thrombocytopenia (HCC) Elevated LFTs Alcoholism (HCC) Elevated ferritin LACTATE DEHYDROGENASE (LD) Routine 06/27/2024 10:16 AM SHOP FITTER Thrombocytopenia (HCC) Elevated LFTs Alcoholism (HCC) Elevated ferritin RETICULOCYTE COUNT (RETIC) Routine 06/27/2024 10:16 AM SHOP FITTER Elevated ferritin HEPATITIS C ANTIBODY Routine 12/15/2023 1:46 PM CDT Thrombocytopenia (HCC) from Last 3 Months or Most Recently Relevant to Health Maintenance Results * IRON AND TIBC [id number] [place] (06/27/2024 10:16 AM SHOP FITTER) Pathologist [facility] Iron Bind.Cap.(TIBC) 272 250 - 450 UG/DL [facility] UIBC 192 131 - 425 UG/DL [facility] Iron, Serum 80 27 - 159 UG/DL [facility] Iron Saturation 29 15 - 55 % [facility] 06/27/2024 10:1 6 AM SHOP FITTER Narrative [facility] - 06/28/2024 1:07 PM SHOP FITTER TESTING PERFORMED AT: [] [facility], [address] [place] [address], [address], PHONE: [phone], SURVEILLANCE SYSTEMS ANALYST: BONIFACIO MARIA, PHD Adali Johnson MD LAB SEND OUTS Final Result [facility] [place] [address], * (ABNORMAL) FERRITIN [id number] [place] (06/27/2024 10:16 AM SHOP FITTER) Ferritin, Serum 165(H) 15 - 150 NG/ML [facility] 06/27/2024 10:1 6 AM SHOP FITTER Danilo [facility] - 06/28/2024 1:07 PM SHOP FITTER TESTING PERFORMED AT: [] [facility], [address] [place] [address], [place], [address], PHONE: [phone], SURVEILLANCE SYSTEMS ANALYST: BONIFACIO MARIA, PHD Adali Johnson MD LAB SEND OUTS Final Result Performing Organization Address [facility] Co de Phone Number [facility] PHYS[facility] Cancer Care [address] [address], * (ABNORMAL) RETICULOCYTE COUNT (RETIC) (06/27/2024 10:16 AM SHOP FITTER) Reticulocyte count 2.05(H) 0.50 - 1.70 % [facility] RET-He 34.90 28.20 - 36.60 pg [facility] Comment: RET-He is a direct assessment of incorporation of iron into erythrocyte hemoglobin. It provides an indirect measure of the iron available for new erythropoiesis over past 2-4 days. Blood 06/27/2024 10:[address] [facility] - 06/27/2024 10:32 AM SHOP FITTER Release to patient->Immediate Adali Johnson MD HEMATOLOGY ORDERABLES Final Resu lt Performing Organization Address [facility]/ZIP Co de Phone Number [facility] Cancer Care [address] [address], * LACTATE DEHYDROGENASE (LD) (06/27/2024 10:16 AM SHOP FITTER) LDH 161 140 - 271 U/L [facility] Blood 06/27/2024 10:1 6 AM SHOP FITTER Narrative [facility] - 06/27/2024 11:15 AM SHOP FITTER Release to patient->Immediate us Adali Johnson MD CHEMISTRY ORDERABLES Final Resul t [facility] [place] [address], * (ABNORMAL) CMP (COMPREHENSIVE METABOLIC PANEL) (06/27/2024 10:16 AM SHOP FITTER) Glucose 177(H) 70 - 105 mg/dL [facility] Blood Urea Nitrogen 5(L) 7 - 25 mg/dL [facility] Creatinine 0.5(L) 0.6 - 1.2 mg/dL [facility] Sodium 141 136 - 145 mEq/L [facility] Potassium 4.1 3.5 - 5.1 mEq/L [facility] Chloride 104 98 - 107 mEq/L [facility] Bicarbonate 27 21 - 31 mEq/L [facility] Total Bilirubin 0.7 0.3 - 1.0 mg/dL [facility] Alk. Phosphatase 93 34 - 104 U/L [facility] Aspartate Aminotransferase 30 13 - 39 U/L [facility] Alanine Aminotransferase 12 7 - 52 U/L [facility] Total Protein 7.4 6.4 - 8.9 g/dL [facility] Albumin 3.3(L) 3.5 - 5.7 g/dL [facility] Calcium 9.2 8.6 - 10.3 mg/dL [facility] Anion Gap 14.1 7.0 - 15.0 mEq/L [facility] Globulin 4.1(H) 2.0 - 3.5 g/dL [facility] EGFR 113 >60 ml/min/1. 73m2 [facility] Comment: This eGFR is calculated using 2020 CKD-EPI Creatinine equation without race modifier based on the NKF-ASN task force recommendations Blood 06/27/2024 10:1 6 AM SHOP FITTER Narrative [facility] - 06/27/2024 11:15 AM SHOP FITTER Release to patient->Immediate IS THE PATIENT REQUIRED TO BE FASTING FOR 8 HOURS?->No Adali Johnson MD CHEMISTRY ORDERABLES Final Resul t [facility] PH[facility] [place] [address], [place] [phone] * (ABNORMAL) COMPLETE BLOOD COUNT (CBC) WITH DIFF (06/27/2024 10:16 AM SHOP FITTER) WBC 5.0 4.0 - 10.0 10*3/uL [facility] HGB 10.8(L) 11.2 - 15.7 g/dL [facility] HCT 33.3(L) 34.1 - 44.9 % [facility] PLT 137(L) 163 - 369 10*3/uL [facility] MPV 9.7 9.4 - 12.4 fL [facility] RBC 3.29(L) 3.93 - 5.22 10*6/uL [facility] MCV 101(H) 79 - 95 fL [facility] MCH 32.8(H) 25.6 - 32.2 pg [facility] MCHC 32.4 32.2 - 36.5 g/dL [facility] RDW 15.1(H) 11.6 - 14.4 % [facility] Absolute Neutrophil Count 2,912 cells/uL [facility] Absolute Seg Count 2,912 1,440 - 6,600 cells/uL [facility] Absolute Lymph Count 1,255 760 - 4,000 cells/uL [facility] Absolute [place] Count 552 160 - 1,200 cells/uL [facility] Absolute Eos Count 251 0 - 300 cells/uL [facility] Absolute Baso Count 50 0 - 100 cells/uL [facility] Segmented Neutrophils 58 36 - 66 % [facility] Lymphocytes 25 19 - 40 % [facility] Monocytes 11 4 - 12 % [facility] Eosinophils 5(H) 0 - 3 % [facility] Basophils 1 0 - 1 % [facility] WBC Estimate Normal [facility] Platelet Estimate Low [facility] RBC Morphology Abnormal CANCE R EPILEPSY PHYSICIAN [facility] Macrocytosis 1+ [facility] Anisocytosis 1+ [facility] Blood 06/27/2024 10:1 6 AM SHOP FITTER Narrative [facility] - 06/27/2024 11:38 AM SHOP FITTER Release to patient->Immediate Adali Johnson MD HEMATOLOGY ORDERABLES Final Resu lt Performing Organization Address [facility] Co de Phone Number [facility] PHYS[facility] [place] [address], * HEPATITIS C ANTIBODY (12/15/2023 1:46 PM CDT) HEPATITIS C VIRUS AB SIGNAL CUTOFF NON REACTIVE NON REACTIVE [facility] HEPATITIS C VIRUS AB COMMENT [facility] PH[facility] Comment: NOT INFECTED WITH HCV UNLESS EARLY OR ACUTE INFECTION IS SUSPECTED (WHICH MAY BE DELAYED IN AN IMMUNOCOMPROMISED INDIVIDUAL), OR OTHER EVIDENCE EXISTS TO INDICATE HCV INFECTION. Blood 12/15/2023 1:46 PM CDT [facility] - 12/16/2023 8:08 AM CDT TESTING PERFORMED AT: [] [facility], [address] [place] [address], [address], PHONE: [phone], SURVEILLANCE SYSTEMS ANALYST: BONIFACIO MARIA, PHD Release to patient->Immediate Adali Johnson MD CHEMISTRY ORDERABLES Final Resul t Performing Organization Address [facility] Co de Phone Number [facility] PHYS[facility] [place] [address], from Last 3 Months or Most Recently Relevant to Health Maintenance Insurance MED[place]ID [place] Care Teams Bulk System Operator Relationship Specialty Start Date End Date Kristian Granda MD [address] [place] [address] PCP - General Family Medicine 09/15/23 Adali Johnson MD [address] [place] [phone] Consulting Physician Oncology 01/18/24
--- OUTSIDE RECORDS SUMMARY | 2024-09-04 19:00 | XMS_ITS | Patient Health Summary ---
Author Organization [facility] Address [address] [place] [address] Care Team Providers Care Bus Transportation Manager Name Role Phone Kristian Granda MD Primary Care Provider [phone] Note from [facility],non-owned Affiliates and Associated Physician Practices is amultiple site organization consisting of ambulatory clinics and hospital sitesin [place], [place], [place] and [place]. This disclosure is being madepursuant to the Care Everywhere program and may not contain all information available regarding this patient. Last updated 18.[facility] Allergies * Sulfa Drugs(Other) -High Criticality * Enovarx-Ibuprofen(Itching) -Low Criticality,Inactive Medications * Be aware that medications may not be up to date on this document. Alwaysverify current medications with the patient. * albuterol (PROVENTIL;VENTOLIN) (2.5 MG/3ML) 0.083% nebulizer solution Inhale by mouth every 6 hours as needed for Shortness of Breath or Wheezing * amitriptyline (Elavil) 25 MG tablet(Started 02/20/2023) Take 1 (one) tablet by mouth once daily * cyclobenzaprine (Flexeril) 10 MG tablet(Started 02/20/2023) Take 1 (one) tablet by mouth 2 times daily as needed * folic acid (Folvite) 1 MG tablet(Started 02/20/2023) Take 1 (one) tablet by mouth once daily * ibuprofen (Motrin) 600 MG tablet Take 1 (one) tablet by mouth 3 times daily as needed * nicotine (Nicoderm CQ) 21 MG/24HR patch * methocarbamol (Robaxin) 750 MG tablet(Started 01/31/2024) Take 1 (one) tablet by mouth every 6 hours as needed for Muscle Spasms * multivitamin daily tablet Take 1 (one) tablet by mouth daily with food * buPROPion SR 12hr (Wellbutrin-SR) 150 MG tablet Take 1 (one) tablet by mouth 2 times daily * zonisamide (Zonegran) 100 MG capsule(Started 08/16/2024) Take 1 pill (100mg) nightly for 2 weeks then increase 2 pills (200mg) nightly 11 refills by 08/16/2025 Ended Medications* traMADol (ULTRAM) 50 MG tablet(Started 06/02/2018) (Discontinued) Take 1 (one) tablet by mouth every 6 hours as needed * albuterol HFA (VENTOLIN HFA) 108 (90 BASE) MCG/ACT inhaler(Discontinued) Inhale 1 (one) puff by mouth as needed * Diphenhydramine-APAP, sleep, (TYLENOL PM EXTRA STRENGTH PO)(Discontinued) Take by mouth nightly as needed * Ibuprofen-Diphenhydramine Cit (ADVIL PM PO)(Discontinued) Take by mouth as needed * bisacodyl EC 5 MG tablet(Discontinued) TAKE 4 TABLETS BY MOUTH AT ONE TIME AT 2PM THE DAY BEFORE THE COLONOSCOPY * buPROPion SR 12hr (Zyban) 150 MG tablet(Started 09/02/2023)(Discontinued) Take 1 (one) tablet by mouth 2 times daily * cetirizine (ZyrTEC) 10 MG tablet(Started 01/09/2023)(Discontinued) Take 2 (two) tablets by mouth once daily * chlordiazePOXIDE (Librium) 25 MG capsule(Started 08/20/2023)(Discontinued) TAKE 1 CAPSULE BY MOUTH THREE TIMES DAILY NEEDED FOR WITHDRAWALS * flurbiprofen 0.03% (Ocufen) 0.03 % ophthalmic solution(Started 12/11/2023) (Discontinued) * Advair HFA 115-21 MCG/ACT(Started 02/22/2023)(Discontinued) INHALE 1 PUFF BY MOUTH EVERY 12 HOURS * furosemide (Lasix) 20 MG tablet(Discontinued) TAKE 1 TABLET BY MOUTH EVERY DAY NEEDED FOR ANKLE SWELLING * HYDROcodone-acetaminophen (Osyka) 5-325 MG tablet(Discontinued) Take 1 (one) tablet by mouth every 6 hours as needed * levoFLOXacin (Levaquin) 750 MG tablet(Started 08/20/2023)(Discontinued) Take 1 (one) tablet by mouth once daily * metoprolol succinate XL 24hr (Toprol XL) 25 MG tablet(Started 10/12/2023) (Discontinued) Take 1 (one) tablet by mouth once daily * metoprolol tartrate IR (Lopressor) 25 MG tablet(Started 08/28/2023) (Discontinued) Take 1 (one) tablet by mouth 2 times daily * prednisoLONE acetate (Pred Forte) 1 % ophthalmic suspension(Started 10/18/2023) (Discontinued) * predniSONE (Deltasone) 20 MG tablet(Started 08/20/2023)(Discontinued) Take 2 (two) tablets by mouth once daily * triamcinolone acetonide (Kenalog) 0.1 % ointment(Started 01/09/2023) (Discontinued) APPLY THIN LAYER TOPICALLY TO THE AFFECTED AREA 2 TO 3 TIMES A DAY FOR ITCHING * cefdinir (Omnicef) 300 MG capsule(Started 01/31/2024)(Discontinued) Take 1 (one) capsule by mouth every 12 hours * acetaminophen-codeine (Tylenol #3) 300-30 MG tablet(Started 02/17/2024) (Discontinued) Take 1 (one) tablet by mouth every 6 hours as needed for Pain * clotrimazole (Mycelex) 10 MG beba(Started 03/16/2024)(Discontinued) DISSOLVE 1 TABLET BY MOUTH FIVE TIMES DAILY * nystatin (Mycostatin) 908812 UNIT/ML suspension(Started 03/15/2024) (Discontinued) SHAKE LIQUID AND TAKE 5 ML BY MOUTH FOUR TIMES DAILY FOR 10 DAYS Active Problems Problem Noted Date Diagnosed Date [...] of skin 10/15/2022 Irritable bowel syndrome 08/19/2021 Elevated liver enzymes 07/16/2021 Tear of medial meniscus of knee 06/09/2021 Genital herpes simplex 03/30/2018 Essential hypertension 03/08/2018 Lower urinary tract symptoms 03/08/2018 Tremor 03/08/2018 Amenorrhea 01/27/2018 Panic attack 12/24/2017 Elevated blood-pressure [...] Pneumonia 01/29/2024 02/26/2024 Urinary tract infection 09/22/201710/17 Immunizations * Covid [employer] primary Monovalent 12+ yr 0.3ml(Given 04/25/2022, 01/18/2022) * FLU VACCINE QUAD IIV4 SPLIT 0.25 ML IM(Given 04/01/2020) * FLU VACCINE TRI IIV3 SPLIT IM (FLUVIRIN)(Given 04/18/2021) * INFLUENZA VACCINE, QUADR. (FLUZONE; FLULAVAL; FLUARIX; AFLURIA QUADRIVALENT; 6MO+), 0.5 ML (IIV4)(Given 03/06/2023, 04/25/2022, 04/23/2018) * INFLUENZA VACCINE, RECOM-PERKINS, TRIV. (FLUBLOCK TRIVALENT; 18Y+) (RIV3)(Given 04/22/2024) * PNEUMOCOCCAL PPV VACCINE(Given 04/23/2018) * TDAP (7yrs+)(Given 04/01/2020) * Zoster Hzv Vacc Recombinant Inj Im(Given 12/30/2023, 03/06/2023) Social History Tobacco Use Types Packs/Day Years [...] Recorded Patient Health Questionnaire-2 Score 0 07/06/2024 [facility] - Occupational Stress [...] place to sleep or slept in a skilled nursing (including now)? No 01/28/2024 Sex and Gender Information Value Date Recorded Sex Assigned at Not on file Gender Identity Not on file Sexual Orientation Not on file Last Filed Vital Signs Vital Sign Reading Time Taken Comments Blood Pressure 122/76 08/16/2024 10:55 AM AUTO CLOCKS REPAIRER Pulse 102 08/16/2024 10:55 AM AUTO CLOCKS REPAIRER Temperature 36.6 C (97.8 F) 05/18/2024 3:57 PM CDT Respiratory Rate 17 05/18/2024 3:57 PM CDT Oxygen Saturation 99% 08/16/2024 10:55 AM AUTO CLOCKS REPAIRER Inhaled Oxygen Concentration 60% 01/30/2024 5 :29 AM CDT Weight 64.2 kg (141 lb 8 oz) 08/16/2024 10:55 AM AUTO CLOCKS REPAIRER Height 160 cm (5' 3 ) 08/16/2024 10:55 AM AUTO CLOCKS REPAIRER Body Mass Index 25.07 08/16/2024 10:55 AM AUTO CLOCKS REPAIRER Medical Devices Implanted Type Area Agriculture Professor Device Identifier Shelf Expiration Date Model / Serial / Lot [id number] 11mm/130 Deg. Ti Crystal Tfna Implanted:Qty: 1 on 01/28/2024 by Elissa Reynoso MD at [facility] Right: Hip 08/18/2031 [id number] / / [id number] Tfna Fenestrated Screw 90 Mm Implanted:Qty: 1 on 01/28/2024 by Elissa Reynoso MD at [facility] Right: Hip 10/16/2033 [id number] / / [id number] 5.0 Locking Screw Implanted:Qty: 1 on 01/28/2024 by Elissa Reynoso MD at [facility] Right: Hip [id number] / / Explanted Type Area Agriculture Professor Device Identifier Shelf Expiration Date Model / Serial / Lot Bit Drl 10mm 300mm Tfn-Adv Lg Qc Crystal Explanted:Qty: 1 on 01/28/2024 at [facility] [id number] / / Procedures * MRI BRAIN WO CONTRAST(Performed 08/27/2024) Performed for Seizures (FORMERLY [facility]) * XR HIP RIGHT 2VW OR MORE(Performed 07/06/2024) Performed for Closed intertrochanteric fracture of hip, right, initial encounter (FORM[facility]) * HOME O2 EVAL (DESATURATION SCREEN)(Performed 05/18/2024) Performed for Chronic bronchitis, unspecified chronic bronchitis type (FORM[facility]LY [facility]) * COMPLETE PFT W/WO BRONCHODILATOR(Performed 05/18/2024) Performed for Chronic bronchitis, unspecified chronic bronchitis type (FORM[facility]LY [facility]) * XR HIP RIGHT 2VW OR MORE(Performed 05/04/2024) Performed for Closed intertrochanteric fracture of hip, right, initial encounter ([facility]) * CT LUNG SCREEN LOW DOSE(Performed 03/23/2024) Performed for Tobacco use disorder * XR HIP RIGHT 2VW OR MORE(Performed 03/23/2024) Performed for Closed intertrochanteric fracture of hip, right, initial encounter ([facility]) * XR HIP RIGHT 2VW OR MORE(Performed 02/17/2024) Performed for Closed intertrochanteric fracture of hip, right, initial encounter (HCC) * MAGNESIUM BLOOD(Performed 02/10/2024) Performed for Hypophosphatemia * RENAL FUNCTION PANEL(Performed 02/10/2024) Performed for Hypophosphatemia * LAB RESULTS ORDER(Performed 02/10/2024) * CARDIAC EKG ORDER(Performed 02/07/2024) * C-REACTIVE PROTEIN(Performed 02/04/2024) * ERYTHROCYTE SEDIMENTATION RATE(Performed 02/04/2024) * PT-INR SLH(Performed 02/04/2024) * OSMOLALITY BLOOD(Performed 02/04/2024) * CBC W/O DIFFERENTIAL(Performed 02/04/2024) * RENAL FUNCTION PANEL(Performed 02/04/2024) * XR FEMUR RIGHT 2VW(Performed 02/04/2024) Performed for Right leg pain * CARDIAC EKG ORDER(Performed 02/04/2024) * BASIC METABOLIC PANEL (CALCIUM TOTAL)(Performed 02/04/2024) * SARS-COV-2 (COVID-19) RAPID(Performed 02/04/2024) * MRSA DNA PCR(Performed 02/04/2024) * SLIDE SCAN HEMATOLOGY(Performed 02/04/2024) * CBC W AUTO DIFFERENTIAL(Performed 02/04/2024) * TROPONIN-I HIGH SENSITIVE REFLEX 1HOUR(Performed 02/04/2024) * URINALYSIS REFLEX TO MICROSCOPIC NO CULTURE(Performed 02/04/2024) * STREP PNEUMONIAE ANTIGEN URINE(Performed 02/04/2024) * LEGIONELLA ANTIGEN URINE(Performed 02/04/2024) * CT ANGIO LOWER EXTREMITY RIGHT(Performed 02/04/2024) Performed for Right leg pain * EKG 12-LEAD(Performed 02/04/2024) Performed for Hypoxia * XR CHEST 2VW(Performed 02/04/2024) Performed for Hypoxia * EKG 12-LEAD(Performed 02/03/2024) Performed for Hypoxia * LIN DIRECT(Performed 02/03/2024) * ELUTION(Performed 02/03/2024) * LIN DIRECT C3(Performed 02/03/2024) * LIN DIRECT IGG(Performed 02/03/2024) * ANTIBODY IDENTIFICATION(Performed 02/03/2024) * TYPE + SCREEN PANEL(Performed 02/03/2024) * SLIDE SCAN HEMATOLOGY(Performed 02/03/2024) * PT-INR SLH(Performed 02/03/2024) * COMPREHENSIVE METABOLIC PANEL(Performed 02/03/2024) * CBC W AUTO DIFFERENTIAL(Performed 02/03/2024) * TROPONIN-I HIGH SENSITIVE BASELINE + 1HR(Performed 02/03/2024) * LACTIC ACID BLOOD REFLEX TO REPEAT(Performed 02/03/2024) * CULTURE BLOOD(Performed 02/03/2024) * CULTURE BLOOD(Performed 02/03/2024) * PREPARE RBC LEUKOREDUCED UNIT(Performed 02/01/2024) * CARDIAC EKG ORDER(Performed 01/31/2024) * GLUCOSE - POINT OF CARE(Performed 01/31/2024) * CBC W/O DIFFERENTIAL(Performed 01/31/2024) * MAGNESIUM BLOOD(Performed 01/31/2024) * GLUCOSE - POINT OF CARE(Performed 01/30/2024) * PHOSPHORUS BLOOD(Performed 01/30/2024) * COMPREHENSIVE METABOLIC PANEL(Performed 01/30/2024) * OSMOLALITY BLOOD(Performed 01/30/2024) * CBC W/O DIFFERENTIAL(Performed 01/30/2024) * MAGNESIUM BLOOD(Performed 01/30/2024) * CT ANGIO CHEST PULM EMBOLISM(Performed 01/29/2024) Performed for Hypoxia * XR CHEST 1VW PORTABLE(Performed 01/29/2024) Performed for Tobacco use * CBC W/O DIFFERENTIAL(Performed 01/29/2024) Performed for Right hip pain, Closed intertrochanteric fracture of hip, right, initial encounter ([facility]) * IRON + TRANSFERRIN PANEL(Performed 01/29/2024) * CALCIUM IONIZED WHOLE BLOOD(Performed 01/29/2024) * PHOSPHORUS BLOOD(Performed 01/29/2024) Performed for Right hip pain, Closed intertrochanteric fracture of hip, right, initial encounter ([facility]) * MAGNESIUM BLOOD(Performed 01/29/2024) Performed for Right hip pain, Closed intertrochanteric fracture of hip, right, initial encounter ([facility]) * BASIC METABOLIC PANEL (CALCIUM TOTAL)(Performed 01/29/2024) Performed for Right hip pain, Closed intertrochanteric fracture of hip, right, initial encounter ([facility]) * TSH REFLEX FREE T4(Performed 01/29/2024) * FOLATE(Performed 01/29/2024) * VITAMIN B12(Performed 01/29/2024) * XR PELVIS W RIGHT HIP 2VW(Performed 01/28/2024) Performed for Closed intertrochanteric fracture of hip, right, initial encounter ([facility]) * BASIC METABOLIC PANEL (CALCIUM TOTAL)(Performed 01/28/2024) * FL ABEBE SURGERY(Performed 01/28/2024) Performed for Closed intertrochanteric fracture of hip, right, initial encounter ([facility]) * ENDOTRACHEAL TUBE NOTE(Performed 01/28/2024) * WA OPEN RX FEMUR FX+INTRAMED VERONIQUE(Performed 01/28/2024) Performed for Type I or II open displaced intertrochanteric fracture of right femur, initial encounter ([facility]) * BLOOD TYPE VERIFICATION(Performed 01/28/2024) * EKG 12-LEAD(Performed 01/28/2024) Performed for Right hip pain * XR HIP RIGHT 2VW OR MORE(Performed 01/28/2024) Performed for Closed intertrochanteric fracture of hip, right, initial encounter ([facility]) * XR KNEE RIGHT 2VW OR LESS(Performed 01/28/2024) Performed for Right hip pain * HCG BETA BLOOD QUANTITATIVE(Performed 01/28/2024) Performed for Closed intertrochanteric fracture of hip, right, initial encounter ([facility]) * BASIC METABOLIC PANEL (CALCIUM TOTAL)(Performed 01/28/2024) Performed for Right hip pain * CBC W/O DIFFERENTIAL(Performed 01/28/2024) * ELUTION(Performed 01/28/2024) * ANTIBODY IDENTIFICATION(Performed 01/28/2024) * LIN DIRECT C3(Performed 01/28/2024) * LIN DIRECT IGG(Performed 01/28/2024) * LIN DIRECT(Performed 01/28/2024) * TYPE + SCREEN PANEL(Performed 01/28/2024) * VITAMIN D 25-HYDROXY(Performed 01/28/2024) Performed for Fall, initial encounter * PTT SLH(Performed 01/28/2024) * PT-INR SLH(Performed 01/28/2024) * HEMOGLOBIN A1C(Performed 01/28/2024) * COMPREHENSIVE METABOLIC PANEL(Performed 01/28/2024) * XR STRESS ANY JOINT(Performed 01/28/2024) Performed for Right hip pain * XR PELVIS 1 OR 2VW(Performed 01/28/2024) Performed for Right hip pain * XR FEMUR RIGHT 2VW(Performed 01/28/2024) Performed for Right hip pain * XR KNEE RIGHT 2VW OR LESS(Performed 01/28/2024) Performed for Right hip pain * XR PELVIS W RIGHT HIP 2VW(Performed 01/28/2024) Performed for Right hip pain * WA DESTRUCT BENIGN LESION, 1-14(Performed 12/22/2023) Performed for Inflamed seborrheic keratosis * PANCREATIC ELASTASE FECES(Performed 09/02/2018) * CALPROTECTIN FECAL(Performed 09/02/2018) Performed for Diarrhea, unspecified type * T4 FREE(Performed 08/31/2018) Performed for Diarrhea, unspecified type * TSH(Performed 08/31/2018) Performed for Diarrhea, unspecified type * IGA BLOOD(Performed 08/31/2018) Performed for Diarrhea, unspecified type * TISSUE TRANSGLUTAMINASE AB IGA(Performed 08/31/2018) Performed for Diarrhea, unspecified type * ERYTHROCYTE SEDIMENTATION RATE(Performed 08/31/2018) Performed for Diarrhea, unspecified type * C-REACTIVE PROTEIN(Performed 08/31/2018) Performed for Diarrhea, unspecified type * COMPREHENSIVE METABOLIC PANEL(Performed 08/31/2018) Performed for Diarrhea, unspecified type * CBC W AUTO DIFFERENTIAL(Performed 08/31/2018) Performed for Diarrhea, unspecified type * IMAGING/RADIOLOGY/XRAY RESULTS ORDER(Performed 08/16/2018) * US THYROID(Performed 02/11/2018) Performed for Thyroid nodule, Abnormal thyroid blood test * T4 FREE(Performed 01/27/2018) Performed for Thyroid nodule, Abnormal thyroid blood test * TSH(Performed 01/27/2018) Performed for Thyroid nodule, Abnormal thyroid blood test * IMAGING/RADIOLOGY/XRAY RESULTS ORDER(Performed 11/24/2017) * US TRANSVAGINAL NON OB(Performed 11/17/2017) Performed for Cyst of ovary, unspecified laterality Results * MRI Brain Wo Contrast (08/27/2024 9:01 AM AUTO CLOCKS REPAIRER) Anatomical Region Laterality Modality Head Magnetic Resonan ce 08/30/2024 9:53 AM AUTO CLOCKS REPAIRER Impressions 09/03/2024 2:05 PM AUTO CLOCKS REPAIRER IMPRESSION: 1.There are suspected small foci of [...] report is dictated by Wilder Hyde MD (nursing resident) ITrenton MD have personally reviewed and interpreted this examination/study. > Interpreting Provider: Trenton Dexter MD on 09/03/2024 2:05 PM Narrative 09/03/2024 2:05 PM AUTO CLOCKS REPAIRER PROCEDURE: MRI BRAIN WO CONTRAST, DATE/TIME OF EXAM: 08/27/2024 9:01 AM, LOCATION [facility] INDICATION: R56.9: Seizures (HCC) ADDITIONAL CLINICAL INFORMATION: [...] DATE/TIME OF EXAM: 08/27/2024 9:01 AM, LOCATION [facility] INDICATION: R56.9: Seizures (HCC) ADDITIONAL CLINICAL INFORMATION: [...] report is dictated by Wilder Hyde MD (nursing resident) ITrenton MD have personally reviewed and interpretedthis examination/study. > Interpreting Provider: Trenton Dexter MD on 09/03/2024 2:05 PM Justina Beltre MUSIC THEORY PROFESSOR-MANAGER TRAFFIC MR ORDERABLES * XR Hip Right 2Vw or More (07/06/2024 9:55 AM AUTO CLOCKS REPAIRER) Only the most recent of5 resultswithin the time period is included. Anatomical Region Laterality Modality Pelvis, Lower Extremity Radiogra [facility] 07/06/2024 1:39 PM AUTO CLOCKS REPAIRER Impressions 07/06/2024 1:41 PM AUTO CLOCKS REPAIRER IMPRESSION: Overall no significant interval change in appearance of the right hip since the prior study. Report dictated by Valeria Lowry MD (nursing resident). > Interpreting Provider: Evelio Nunez MD on 07/06/2024 1:41 PM Narrative 07/06/2024 1:41 PM AUTO CLOCKS REPAIRER PROCEDURE: XR HIP RIGHT 2VW OR MORE DATE/TIME OF EXAM: 07/06/2024 9:55 AM CLINICAL INFORMATION: None relevant/not provided if blank. Indication: S72.141A: Closed intertrochanteric fracture of hip, right, initial encounter (FORMERLY [facility]) Additional History: COMPARISON: Right hip radiographs dated [...] fracture of hip, right, initial encounter ([facility]LY [facility]) Additional History: COMPARISON: Right hip radiographs dated [...] study. Report dictated by Valeria Lowry MD (nursing resident). > Interpreting Provider: Evelio Nunez MD on 07/06/2024 1:41 PM Elissa Reynoso MD DIAGNOSTIC IMAGING ORDERABLES * AMBULATORY OXIMETRY (05/18/2024 3:52 PM CDT) Impressions Anoop Chew MD - 05/18/2024 3:52 PM CDT [facility] DEPARTMENT OF PULMONARY, CRITICAL CARE, AND SLEEP MEDICINE OXYGEN TITRATION STUDY Radha Mendoza 05/19/2024 INTERPRETATION The test was performed on the treadmill at a speed of 1 mph at room air. The patient was able to complete 4 minutes with lowest SpO2 of 96%. IMPRESSION 1. At the above level of activity the patient's oxygen saturation remained 96 % and above on room air. Samm Barrow MD Pulmonary and Critical Care Fellow, [facility] 05/19/2024 8:54 PM Attestation: I have reviewed the test data and Dr. Barrow's interpretation. I agree with the interpretation. Anoop Chew MD 05/20/2024 Narrative Anoop Chew MD - 05/18/2024 3:52 PM CDT Samm Barrow MD 05/19/2024 8:51 PM Ruddy Isabel MD RESPIRATORY [facility] ORDERABLES * COMPLETE PFT W/WO BRONCHODILATOR (05/18/2024 3:41 PM CDT) Impressions Anoop Chew MD - 05/18/2024 3:41 PM CDT [facility] DEPARTMENT OF PULMONARY, CRITICAL CARE, AND SLEEP MEDICINE PULMONARY FUNCTION TEST Please see technologist's comments mentioned in the report. INTERPRETATION: SPIROMETRY: FVC: normal. FEV1: normal. FEV1/FVC ratio is normal. BRONCHODILATOR RESPONSE: There is a significant positive response to bronchodilators. FLOW-VOLUME LOOPS: Inspection of the flow-volume loops shows normal flow-volume loops. LUNG VOLUMES: Lung volumes by body plethysmography show normal total lung volume and normal residual volume. DIFFUSION CAPACITY DLCO: Unadjusted for Hb and COHb is decreased. DLCO: Corrected for Hb and COHb is decreased. AIRWAY RESISTANCE The airway resistance is normal and the specific conductance is normal. ARTERIAL BLOOD GAS ANALYSIS: Not performed. IMPRESSION: 1. Normal spirometry and lung volumes. 2. DLCO is mildly decreased. 3. There is a significant bronchodilator response. 4. There is no previous study available for comparison. Samm Barrow MD Pulmonary & Critical Care Fellow, [facility] 8:51 PM 05/19/2024 Attestation: I have reviewed the test data and Dr. Barrow's interpretation. I agree with the interpretation. Anoop Chew MD 05/20/2024 Narrative Anoop Chew MD - 05/18/2024 3:41 PM CDT aSmm Barrow MD 05/19/2024 8:51 PM Ruddy Isabel MD RESPIRATORY [facility] ORDERABLES * CT LUNG CANCER SCREEN LOW DOSE (03/23/2024 12:47 PM CDT) Anatomical Region Laterality Modality Chest Computed Tomogra phy 03/23/2024 1:42 PM CDT Narrative 03/23/2024 9:59 PM CDT PROCEDURE: CT LUNG SCREEN LOW DOSE DATE/TIME OF EXAM: 03/23/2024 12:47 PM CLINICAL INFORMATION: 49-year-old female with tobacco abuse, chronic bronchitis, asthma with recent hospitalization for hypoxia and pneumonia, followed for 37 pack year smoking history. Indication: F17.200: Tobacco use disorder COMPARISON: CT angiogram chest 01/29/2024 TECHNIQUE: CT of the chest was performed without intravenous contrast utilizing low dose protocol. CT dose reduction technique was used, including Automated Exposure Control. FINDINGS: Lower Neck and Axillae: Normal. Lungs: The pneumonia has resolved. There is scarring in the right middle lobe and mild bronchiectasis, likely sequela of prior infection. There is a 3 mm nodule in the right upper lobe seen on series 6 image 28. No pleural fluid or pneumothorax is present. Heart and Pericardium: The cardiac chambers are normal in size. No pericardial fluid or thickening is present. Mediastinum and Nadya: No enlarged lymph nodes are present. Thoracic Vasculature: No vascular abnormality is present. Bones and Chest Wall: Bone windows demonstrate no suspicious lytic or blastic lesions. The visible osseous structures are intact. Upper Abdomen: Partially visualized hepatic cirrhosis and ascites. ASSESSMENT: Lung-RADS 2: Benign appearance or behavior. Partially visualized hepatic cirrhosis and ascites RECOMMENDATION: Follow up LDCT in 1 year. ACR Lung-RADS Category/Recommendations: 0: Need prior comparisons or additional images 1: Negative: 12 month follow up LDCT (Low Dose CT) 2: Benign Appearin month follow up LDCT 3: Probably Benign: 6 month follow up LDCT 4A: Suspicious: 3 month follow up LDCT (or immediate PET if >7mm solid component) 4B: Suspicious: Immediate Chest CT or PET if >7mm solid component 4X: Cat 3 or 4A nodules with additional suspicious findings Modifier- S : Significant NON-lung cancer findings For details of the ACR Lung-RADS program, categories and recommendations: 1) https://www.acr.org/Quality-Safety/Resources/LungRADS 2) Internet search: Lung-RADS Lung Cancer Screening 3) Contact [facility] thoracic nurse coordinator ([phone]) IEarl MD have personally reviewed and interpreted this examination/study. > Interpreting Provider: Earl Rose MD on 03/23/2024 9:59 PM Procedure Note Earl Rose MD - 03/23/2024 PROCEDURE: CT LUNG SCREEN LOW DOSE DATE/TIME OF EXAM: 03/23/2024 12:47 PM CLINICAL INFORMATION: 49-year-old female with tobacco abuse, chronic bronchitis, asthma with recent hospitalization for hypoxia andpneumonia, followed for 37 pack year smoking history. Indication: F17.200: Tobacco use disorder COMPARISON: CT angiogram chest 01/29/2024 TECHNIQUE: CT of the chest was performed without intravenous contrast utilizing low dose protocol. CT dose reduction technique was used, including Automated ExposureControl. FINDINGS: Lower Neck and Axillae: Normal. Lungs: The pneumonia has resolved. There is scarring in the right middle lobeand mild bronchiectasis, likely sequela of prior infection. There is a 3 mm nodule in the right upper lobe seen on series 6 image 28. No pleuralfluid or pneumothorax is present. Heart and Pericardium: The cardiac chambers are normal in size. No pericardial fluid orthickening is present. Mediastinum and Nadya: No enlarged lymph nodes are present. Thoracic Vasculature: No vascular abnormality is present. Bones and Chest Wall: Bone windows demonstrate no suspicious lytic or blastic lesions. The visible osseous structures are intact. Upper Abdomen: Partially visualized hepatic cirrhosis and ascites. ASSESSMENT: Lung-RADS 2: Benign appearance or behavior. Partially visualized hepatic cirrhosis and ascites RECOMMENDATION: Follow up LDCT in 1 year. ACR Lung-RADS Category/Recommendations: 0: Need prior comparisons or additional images 1: Negative: 12 month follow up LDCT (Low Dose CT) 2: Benign Appearin month follow up LDCT 3: Probably Benign: 6 month follow up LDCT 4A: Suspicious: 3 month follow up LDCT (or immediate PET if >7mm solid component) 4B: Suspicious: Immediate Chest CT or PET if >7mm solid component 4X: Cat 3 or 4A nodules with additional suspicious findings Modifier- S : Significant NON-lung cancer findings For details of the ACR Lung-RADS program, categories andrecommendations: 1) https://www.acr.org/Quality-Safety/Resources/LungRADS 2) Internet search: Lung-RADS Lung Cancer Screening 3) Contact [facility] thoracic nurse coordinator ([phone]) I, Earl Rose MD have personally reviewed and interpreted this examination/study. > Interpreting Provider: Earl Rose MD on 03/23/2024 9:59 PM Ruddy Isabel MD CT ORDERABLES * (ABNORMAL) RENAL FUNCTION PANEL (02/10/2024 3:32 PM CDT) Only the most recent of2 resultswithin the time period is included. BUN <5(L) 7 - 26 mg/dL 02/10/2024 4:57 PM [facility] Creatinine 0.29(L) 0.56 - 0.96 mg/dL 02/10/2024 4:57 PM [facility] Sodium 128(L) 136 - 145 mmol/L 02/10/2024 4:57 PM [facility] Potassium 5.1(H) 3.5 - 4.5 mmol/L 02/10/2024 4:57 PM [facility] Chloride 98 98 - 107 mmol/L 02/10/2024 4:57 PM [facility] CO2 26 22 - 29 mmol/L 02/10/2024 4:57 PM [facility] Glucose 106 70 - 115 mg/dL 02/10/2024 4:57 PM [facility] Albumin 2.5(L) 3.4 - 5.0 g/dL 02/10/2024 4:57 PM [facility] Calcium 8.3(L) 8.4 - 10.2 mg/dL 02/10/2024 4:57 PM [facility] Phosphorus 2.4(L) 2.9 - 5.1 mg/dL 02/10/2024 4:57 PM [facility] Anion Gap 4(L) 6 - 16 02/10/2024 4:57 PM [facility] BUN/Creatinine Ratio <17 7 - 23 02/10/2024 4:57 PM [facility] Osmolality Calculated <264(L) 275 - 295 mOsm/kg 02/10/2024 4:57 PM [facility] eGFR by CKD-EPI >90 >=90 mL/min/1.7 3 m2 02/10/2024 4:57 PM [facility] Blood BLOOD SPECIMEN / Unknown Lab Venipuncture / Unknown 02/10/2024 3:32 PM CDT 02/10/2024 4:27 PM CDT Ruddy Isabel MD LAB - CHEMISTRY ORDERABLES Performing Organization Address City/[facility]/ZIP Co de Phone Number [facility] [address] [place] [address], [facility] [phone] * MAGNESIUM BLOOD (02/10/2024 3:32 PM CDT) Only the most recent of4 resultswithin the time period is included. Magnesium 2.0 1.6 - 2.6 mg/dL 02/10/2024 4:57 PM CDT [facility] Blood BLOOD SPECIMEN / Unknown Lab Venipuncture / Unknown 02/10/2024 3:32 PM CDT 02/10/2024 4:27 PM CDT Ruddy Isabel MD LAB - CHEMISTRY ORDERABLES Performing Organization Address City/[facility]/ZIP Co de Phone Number [facility] [address] [place] [address], [facility] [phone] * LAB RESULTS ORDER (02/10/2024 10:50 AM CDT) Narrative 02/10/2024 10:50 AM CDT Ordered by an unspecified provider. Scanned Document LAB - THERAPEUTIC DR UG MONITORING ORDERABLES * CARDIAC EKG ORDER (02/07/2024 1:52 PM CDT) Only the most recent of3 resultswithin the time period is included. Narrative 02/07/2024 1:52 PM CDT Ordered by an unspecified provider. Scanned Document CARDIAC SERVICES ORD ERABLES * (ABNORMAL) PT-INR [facility] (02/04/2024 4:04 PM CDT) Only the most recent of3 resultswithin the time period is included. PT 17.7(H) 12.1 - 14.8 Seconds 02/04/2024 5:09 PM CDT [facility] INR 1.5 See Comment 02/04/2024 5:09 PM CDT [facility] Comment:The suggested therap eutic range for standard coumadin (warfarin) therapy is an INR of 2.0-3.0. For high-risk patients (Mechanical Mitral Valve Prosthesis, etc.), the suggested prophylactic therapeutic range is an INR of 2.5-3.5. Blood BLOOD SPECIMEN / Unknown Venipuncture / Unknown 02/04/2024 4:04 PM CDT 02/04/2024 4:08 PM CDT Chalo Watts MD LAB - COAGULATION OR DERABLES Performing Organization Address City/[facility]/ZIP Co de Phone Number [address] [address], [facility] [phone] * (ABNORMAL) C-REACTIVE PROTEIN (02/04/2024 4:04 PM CDT) Only the most recent of2 resultswithin the time period is included. C-Reactive Protein 6.0(H) <=0.5 mg/dL 02/04/2024 4:37 PM CDT [facility] Blood BLOOD SPECIMEN / Unknown Venipuncture / Unknown 02/04/2024 4:04 PM CDT 02/04/2024 4:09 PM CDT Chalo Watts MD LAB - CHEMISTRY ORDE RABLES Performing Organization Address City/[facility]/ZIP Co de Phone Number [address] [address], [place] [phone] * ERYTHROCYTE SEDIMENTATION RATE (02/04/2024 4:04 PM CDT) Only the most recent of2 resultswithin the time period is included. Erythrocyte Sedimentation Rate Westergren 6 0 - 30 MM/HR 02/04/2024 4:29 PM CDT [facility] Blood BLOOD SPECIMEN / Unknown Venipuncture / Unknown 02/04/2024 4:04 PM CDT 02/04/2024 4:09 PM CDT Chalo Watts MD LAB - HEMATOLOGY ORD ERABLES [facility] [address] [place] [address], [facility] [phone] * (ABNORMAL) CBC W/O DIFFERENTIAL (02/04/2024 4:04 PM CDT) Only the most recent of5 resultswithin the time period is included. WBC 8.6 4.0 - 10.7 x10E9/L 02/04/2024 5:29 PM [facility] RBC Count 2.40(L) 3.90 - 5.20 x10E12/L 02/04/2024 5:29 PM [facility] Hemoglobin 8.4(L) 11.9 - 15.8 g/dL 02/04/2024 5:29 PM [facility] Hematocrit 26.1(L) 34.8 - 46.1 % 02/04/2024 5:29 PM [facility] MCV 108.8(H) 80.0 - 98.0 fL 02/04/2024 5:29 PM [facility] MCH 35.0(H) 26.7 - 33.6 pg 02/04/2024 5:29 PM [facility] MCHC 32.2 31.7 - 36.3 g/dL 02/04/2024 5:29 PM [facility] RDW-CV 21.0(H) 11.3 - 14.8 % 02/04/2024 5:29 PM [facility] Platelet Count 152 150 - 420 x10E9/L 02/04/2024 5:29 PM [facility] MPV 10.6 7.8 - 11.4 fL 02/04/2024 5:29 PM [facility] NRBC 0.2(H) <=0.0 /100 WBC 02/04/2024 5:29 PM [facility] Blood BLOOD SPECIMEN / Unknown Venipuncture / Unknown 02/04/2024 4:04 PM CDT 02/04/2024 4:09 PM CDT Chalo Watts MD LAB - HEMATOLOGY ORD MER Performing Organization Address City/[facility]/ZIP Co de Phone Number [facility] [address] [place] [address], [place] [phone] * (ABNORMAL) OSMOLALITY BLOOD (02/04/2024 4:04 PM CDT) Only the most recent of2 resultswithin the time period is included. Osmolality 265(L) 275 - 295 mOsm/kg 02/04/2024 5:11 PM CDT [facility] Blood BLOOD SPECIMEN / Unknown Venipuncture / Unknown 02/04/2024 4:04 PM CDT 02/04/2024 4:09 PM CDT Chalo Watts MD LAB - CHEMISTRY CHRISTY DIAZ Performing Organization Address [facility]/ZIP Co de Phone Number [facility] [address] [place] [address], [place] [phone] * XR FEMUR RIGHT 2VW (02/04/2024 1:59 PM CDT) Only the most recent of2 resultswithin the time period is included. Anatomical Region Laterality Modality Lower Extremity Radiographic Petrona ging 02/04/2024 2:12 PM CDT Impressions 02/04/2024 2:21 PM CDT IMPRESSION: 1.Intact right femoral cephalomedullary nailing hardware with unchanged osseous alignment of the intertrochanteric fracture site. 2.Mild diffuse soft tissue edema. Report dictated by Wolfgang Zabala MD (nursing resident). I, Sidra Green MD have personally reviewed and interpreted this examination/study. > Interpreting Provider: Sidra Green MD on 02/04/2024 2:21 PM Narrative 02/04/2024 2:21 PM CDT PROCEDURE: XR FEMUR RIGHT 2VW, DATE/TIME OF EXAM: 02/04/2024 2:19 PM, LOCATION [facility] INDICATION: M79.604: Right leg pain ADDITIONAL CLINICAL INFORMATION: Ordering Provider Reason For Exam: fx COMPARISON: Pelvic and right hip radiographs 01/28/2024 FINDINGS: Redemonstration of right femoral internal fixation with cephalomedullary nailing hardware in place. The hardware is in place and appears intact. The osseous alignment at the mid intertrochanteric femur fracture appears unchanged from prior. The remainder of the mid to distal femur are intact. There is mild diffuse soft tissue edema. There is a small suprapatellar joint effusion. Procedure Note Sidra Green MD - 02/04/2024 PROCEDURE: XR FEMUR RIGHT 2VW, DATE/TIME OF EXAM: 02/04/2024 2:19 PM, LOCATION [facility] INDICATION: M79.604: Right leg pain ADDITIONAL CLINICAL INFORMATION: Ordering Provider Reason For Exam: fx COMPARISON: Pelvic and right hip radiographs 01/28/2024 FINDINGS: Redemonstration of right femoral internal fixation with cephalomedullary nailing hardware in place. The hardware is in place and appears intact.The osseous alignment at the mid intertrochanteric femur fracture appears unchanged from prior. The remainder of the mid to distal femur areintact. There is mild diffuse soft tissue edema. There is a small suprapatellar joint effusion. IMPRESSION: 1.Intact right femoral cephalomedullary nailing hardware with unchanged osseous alignment of the intertrochanteric fracture site. 2.Mild diffuse soft tissue edema. Report dictated by Wolfgang Zabala MD (nursing resident). I, Sidra Green MD have personally reviewed and interpreted this examination/study. > Interpreting Provider: Sidra Green MD on 02/04/2024 2:21 PM Chalo Watts MD DIAGNOSTIC IMAGING O RDERABLES * (ABNORMAL) BASIC METABOLIC PANEL (CALCIUM TOTAL) (02/04/2024 7:15 AM CDT) Only the most recent of4 resultswithin the time period is included. BUN <5(L) 7 - 26 mg/dL 02/04/2024 7:48 AM CDT [facility] Creatinine 0.28(L) 0.56 - 0.96 mg/dL 02/04/2024 7:48 AM CDT [facility] Sodium 131(L) 136 - 145 mmol/L 02/04/2024 7:48 AM [facility] Potassium 3.4(L) 3.5 - 4.5 mmol/L 02/04/2024 7:48 AM [facility] Chloride 99 98 - 107 mmol/L 02/04/2024 7:48 AM [facility] CO2 24 22 - 29 mmol/L 02/04/2024 7:48 AM [facility] Glucose 111 70 - 115 mg/dL 02/04/2024 7:48 AM [facility] Calcium 7.5(L) 8.4 - 10.2 mg/dL 02/04/2024 7:48 AM [facility] Anion Gap 8 6 - 16 02/04/2024 7:48 AM [facility] BUN/Creatinine Ratio <18 7 - 23 02/04/2024 7:48 AM [facility] Osmolality Calculated <270(L) 275 - 295 mOsm/kg 02/04/2024 7:48 AM [facility] eGFR by CKD-EPI >90 >=90 mL/min/1.7 3 m2 02/04/2024 7:48 AM [facility] Blood BLOOD SPECIMEN / Unknown Venipuncture / Unknown 02/04/2024 7:15 AM CDT 02/04/2024 7:17 AM CDT Aravind De Guzman MD LAB - CHEMISTRY CHRISTY DIAZ [facility] Organization Address City/State/ZIP Co de Phone Number [facility] [address] [place] [address], [facility] [phone] * SARS-COV-2 (COVID-19) RAPID (02/04/2024 6:27 AM CDT) COVID-19 PCR Not detected Not detected 02/04/20 7:00 AM T [facility] Microbiology SPECIMEN FROM NASOPHARYNGEAL STRUCTURE / Unknown Collection / Unknown 02/04/2024 6:27 AM CDT 02/04/2024 6:28 AM CDT Narrative [facility] - 02/04/2024 7:00 AM CDT The Cepheid Xpert Xpress SARS-COV-2 has been authorized by the Food and Drug Administration (FDA) under an Emergency Use Authorization (EUA). This test has been validated in accordance with the FDA's guidance document Policy for Diagnostic Testing in Laboratories Certified to perform High Complexity Testing under CLIA prior to Emergency Use Authorization for Coronavirus Disease-2019 during the Public Health Emergency issued on September 16, 2019. FDA independent review of this validation is pending. This test is only authorized for the duration of the time the declaration that circumstances exist justifying the authorization of emergency use of in vitro diagnostic tests for detection of SARS-COV-2 virus and/or diagnosis of COVID-19 infection under 564(b) (1) of the Act. 21 U.S.C. 360bbb-3 (b) (1), unless the authorization is terminated or revoked sooner. Fact Sheets for this EUA assay are available upon request. Aravind De Guzman MD LAB - MICROBIOLOGY O LIZANDRO Performing Organization Address City/[facility]/ZIP Co de Phone Number [facility] [address] [place] [address], [facility] [phone] * MRSA DNA PCR (02/04/2024 6:27 AM CDT) Pathologist [facility] MRSA DNA by PCR Not detected Not detected 02/04/2024 11:50 AM CDT [facility] Microbiology SPECIMEN FROM NASAL FOSSAE / Unknown Collection / Unknown 02/04/2024 6:27 AM CDT 02/04/2024 6:28 AM CDT Narrative [facility] - 02/04/2024 11:50 AM CDT Methicillin-resistant Staphylococcus aureus (MRSA) DNA is not detected (presumed not colonized with MRSA). Aravind De Guzman MD LAB - MICROBIOLOGY O LIZANDRO [facility] [address] [place] [address], [facility] [phone] * TROPONIN-I HIGH SENSITIVE REFLEX 1HOUR (02/04/2024 4:38 AM CDT) Pathologist [facility] Troponin I High Sensitive <3 <=14 ng/L 02/04/2024 5:33 AM CDT [facility] Delta Troponin I HS 02/04/2024 5:33 AM [facility] Comment:Delta value intentio lilian not calculated. Baseline to 1 hour specimen collection interval exceeded. Blood BLOOD SPECIMEN / Unknown Venipuncture / Unknown 02/04/2024 4:38 AM CDT 02/04/2024 4:42 AM CDT Lou Romero MD LAB - CHEMISTRY CHRISTY Villarreal Organization Address City/[facility]/ZIP Co de Phone Number [address] [address], [facility] [phone] * URINALYSIS REFLEX TO MICROSCOPIC NO CULTURE (02/04/2024 4:38 AM CDT) Color UA Yellow Straw, Yellow 02/04/2024 4:48 AM [facility] Clarity UA Clear Clear 02/04/2024 4:48 AM [facility] Specific Crescent UA 1.013 1.005 - 1.030 02/04/2024 4:48 AM [facility] pH UA 7.0 5.0 - 8.0 pH 02/04/2024 4:48 AM [facility] Protein UA Negative Negative 02/04/2024 4:48 AM [facility] Glucose UA Negative Negative 02/04/2024 4:48 AM [facility] Ketone UA Negative Negative 02/04/2024 4:48 AM [facility] Bilirubin UA Negative Negative 02/04/2024 4:48 AM [facility] Blood UA Negative Negative 02/04/2024 4:48 AM [facility] Nitrite UA Negative Negative 02/04/2024 4:48 AM [facility] Leukocyte Esterase Negative Negative 02/04/2024 4:48 AM [facility] Urobilinogen UA Negative Negative mg/dL 02/04/2024 4:48 AM [facility] RBC UA 0-2 None Seen, 0-2, 3-5 /HPF 02/04/2024 4:48 AM [facility] WBC UA None Seen None Seen, 0-5 /HPF 02/04/2024 4:48 AM [facility] Squamous Epithelial Cells UA 0-2 None Seen, 0-2, 3-5 /HPF 02/04/2024 4:48 AM CDT [facility] Urine URINE SPECIMEN OBTAINED BY CLEAN CATCH PROCEDURE / Unknown Collection / Unknown 02/04/2024 4:38 AM CDT 02/04/2024 4:41 AM CDT Narrative [facility] - 02/04/2024 4:48 AM CDT Lou Romero MD LAB - URINALYSIS ORD ERABLES Performing Organization Address City/[facility]/ZIP Co de Phone Number [facility] [address] [place] [address], [facility] [phone] * STREP PNEUMONIAE ANTIGEN URINE (02/04/2024 4:38 AM CDT) Streptococcus pneumoniae Antigen Urine Negative Negative 02/05/2024 7:54 AM CDT [facility] Urine URINE / Unknown 02/04/2024 4 :38 AM CDT 02/04/2024 8:24 AM CDT [facility] - 02/05/2024 7:54 AM CDT Patients who have received the Streptococcus pneumoniae vaccines may test positive in the 48 hours following vaccination. It is recommended to avoid testing within five days of receiving vaccination. Testing pediatric patients is discouraged because of their high rates of nasal colonization with Streptococcus pneumoniae leading to false positive results. Samples from patients taking antibiotics for more than 24 hours may cause false negatives. Aravind De Guzman MD LAB - MICROBIOLOGY O RDERABLES [facility] [address] [place] [address], [facility] [phone] * LEGIONELLA ANTIGEN URINE (02/04/2024 4:38 AM CDT) Legionella Antigen Urine Negative Negative 02/05/2024 8:10 AM CDT [facility] Urine URINE / Unknown Collection / Unknown 02/04/2024 4:38 AM CDT 02/04/2024 4:41 AM CDT [facility] - 02/05/2024 8:10 AM CDT This assay detects Legionella pneumophila serogroup one (1) antigen. A negative test result does not rule out the possibility of Legionella infection due to other serogroups or species of Legionella. A positive result may indicate a recent or remote infection with serogroup 1. Lou Romero MD LAB - MICROBIOLOGY O RDERABLES Performing Organization Address City/[facility]/ZIP Co de Phone Number [facility] [address] [place] [address], [facility] [phone] * (ABNORMAL) SLIDE SCAN HEMATOLOGY (02/04/2024 4:38 AM CDT) Only the most recent of2 resultswithin the time period is included. RBC Morphology REVIEWED 02/04/2024 5:45 AM CDT [facility] Polychromatic Cells MODERATE(A) (none) 02/04/2024 5:45 AM CDT [facility] Rouleaux PRESENT(A) (none) 02/04/2024 5:45 AM CDT [facility] Giant Platelets PRESENT(A) (none) 4 5:45 AM CDT [facility] Large Platelets PRESENT(A) (none) 4 5:45 AM CDT [facility] Platelet Clumps PRESENT(A) (none) 4 5:45 AM CDT [facility] Blood BLOOD SPECIMEN / Unknown Venipuncture / Unknown 02/04/2024 4:38 AM CDT 02/04/2024 4:42 AM CDT Lou Romero MD LAB - HEMATOLOGY ORD ERABLES [facility] [address] [place] [address], [place] [phone] * (ABNORMAL) CBC W AUTO DIFFERENTIAL (02/04/2024 4:38 AM CDT) Only the most recent of3 resultswithin the time period is included. WBC 9.4 4.0 - 10.7 x10E9/L 02/04/2024 5:45 AM [facility] RBC Count 2.64(L) 3.90 - 5.20 x10E12/L 02/04/2024 5:45 AM [facility] Hemoglobin 9.3(L) 11.9 - 15.8 g/dL 02/04/2024 5:45 AM [facility] Hematocrit 27.9(L) 34.8 - 46.1 % 02/04/2024 5:45 AM [facility] MCV 105.7(H) 80.0 - 98.0 fL 02/04/2024 5:45 AM [facility] MCH 35.2(H) 26.7 - 33.6 pg 02/04/2024 5:45 AM [facility] MCHC 33.3 31.7 - 36.3 g/dL 02/04/2024 5:45 AM [facility] RDW-CV 20.7(H) 11.3 - 14.8 % 02/04/2024 5:45 AM [facility] Platelet Count 02/04/2024 5:45 AM [facility] Comment:Platelets clumped on slide but appears adequate. Recommend repeat with a sodium citrate blue top tube. MPV 10.7 7.8 - 11.4 fL 02/04/2024 5:45 AM [facility] Neutrophil % 78.2(H) 41.0 - 74.0 % 02/04/2024 5:45 AM [facility] Lymphocyte % 12.9(L) 17.0 - 47.0 % 02/04/2024 5:45 AM [facility] Monocyte % 4.0 3.0 - 11.0 % 02/04/2024 5:45 AM [facility] Eosinophil % 2.0 0.0 - 7.0 % 02/04/2024 5:45 AM [facility] Basophil % 0.2 0.0 - 1.6 % 02/04/2024 5:45 AM [facility] Immature Granulocytes % 2.7(H) 0.0 - 1.0 % 02/04/2024 5:45 AM [facility] Neutrophil Absolute 7.35 1.60 - 7.50 x10E9/L 02/04/2024 5:45 AM CDT [facility] Lymphocyte Absolute 1.21 1.00 - 4.40 x10E9/L 02/04/2024 5:45 AM CDT [facility] Monocyte Absolute 0.38 0.15 - 1.00 x10E9/L 02/04/2024 5:45 AM CDT [facility] Eosinophil Absolute 0.19 0.00 - 0.60 x10E9/L 02/04/2024 5:45 AM CDT [facility] Basophil Absolute 0.02 0.00 - 0.13 x10E9/L 02/04/2024 5:45 AM CDT [facility] NRBC 0.2(H) <=0.0 /100 WBC 02/04/2024 5:45 AM CDT [facility] Blood BLOOD SPECIMEN / Unknown Venipuncture / Unknown 02/04/2024 4:38 AM CDT 02/04/2024 4:42 AM CDT Lou Romero MD LAB - HEMATOLOGY ORD ERABLES [facility] [address] [place] [address], [facility] [phone] * CT ANGIO LOWER EXTREMITY RIGHT (02/04/2024 4:11 AM CDT) Anatomical Region Laterality Modality Lower Extremity Computed Tomogra phy 02/04/2024 9:19 AM CDT Impressions 02/04/2024 9:25 AM CDT Impression: 1.No arterial injury is identified. The lower extremity arteries are patent with three vessel runoff at the distal leg. 2.Subcutaneous edema and hemorrhage, and a 3.3 x 1.5 x 4.5 cm hematoma in the subcutaneous tissues at the lateral aspect of the proximal thigh. 3.Femoral intertrochanteric fracture with cephalomedullary nail fixation. > Interpreting Provider: Dami Ken MD on 02/04/2024 9:25 AM Narrative 02/04/2024 9:25 AM CDT PROCEDURE: CT ANGIO LOWER EXTREMITY RIGHT DATE/TIME OF EXAM: 02/04/2024 4:12 AM CLINICAL INFORMATION: None relevant/not provided if blank. Indication: M79.604: Right leg pain Additional History: post operative infection versus vascular injury COMPARISON: None. Technique: CT angiography of the right lower extremity was performed. Images were obtained before and after administration of intravenous contrast. Sagittal and coronal reconstructions were performed. 3D reconstructions were not performed. CT dose reduction technique was used, including Automated Exposure Control. IV CONTRAST: IOPAMIDOL 76 % IV SOLN:100 mL FINDINGS: The common, internal iliac, external iliac, superficial femoral, deep femoral, and popliteal arteries are patent and demonstrate mild atherosclerotic change. The tibioperoneal trunk, anterior tibial, posterior tibial, and peroneal arteries are patent to the level of the distal leg; these vessels are somewhat diminutive in appearance at the level of the distal leg and ankle which could be due to contrast bolus timing. A cephalomedullary nail is present in the proximal femur for an intertrochanteric fracture. Edema and higher attenuation material compatible with hemorrhage are present in the subcutaneous tissues of the thigh, greatest at the lateral aspect of the pelvis, hip, and proximal to mid thigh. An ovoid structure with attenuation higher than simple fluid, compatible with a hematoma, is present in the subcutaneous tissues at the lateral aspect of the proximal thigh measuring 3.3 x 1.5 x 4.5 cm (series 9 image 100). Several foci of high attenuation material are present in the soft tissues in the gluteal region on the non contrast and post contrast images (series 3 images 61-71), and could represent foci of contrast from a prior examination, postsurgical ossific fragments, calcifications, and/or foreign bodies. Moderate to severe subcutaneous edema is present throughout the leg. Free fluid is visualized in the pelvis. Procedure Note Dami Ken MD - 02/04/2024 PROCEDURE: CT ANGIO LOWER EXTREMITY RIGHT DATE/TIME OF EXAM: 02/04/2024 4:12 AM CLINICAL INFORMATION: None relevant/not provided if blank. Indication: M79.604: Right leg pain Additional History: post operative infection versus vascular injury COMPARISON: None. Technique: CT angiography of the right lower extremity was performed. Images were obtained before and after administration of intravenous contrast. Sagittal and coronal reconstructions were performed. 3D reconstructions were not performed. CT dose reduction technique was used, including Automated ExposureControl. IV CONTRAST: IOPAMIDOL 76 % IV SOLN:100 mL FINDINGS: The common, internal iliac, external iliac, superficial femoral, deep femoral, and popliteal arteries are patent and demonstrate mild atherosclerotic change. The tibioperoneal trunk, anterior tibial, posterior tibial, and peroneal arteries are patent to the level of the distal leg; these vessels are somewhat diminutive in appearance at the level of the distal leg and ankle which could be due to contrast bolus timing. A cephalomedullary nail is present in the proximal femur for an intertrochanteric fracture. Edema and higher attenuation material compatible with hemorrhage are present in the subcutaneous tissues of the thigh, greatest at thelateral aspect of the pelvis, hip, and proximal to mid thigh. An ovoid structure with attenuation higher than simple fluid, compatible with a hematoma,is present in the subcutaneous tissues at the lateral aspect of theproximal thigh measuring 3.3 x 1.5 x 4.5 cm (series 9 image 100). Several foci of high attenuation material are present in the soft tissues in the gluteal region on the non contrast and post contrast images (series 3 images 61-71), and could represent foci of contrast from a prior examination, postsurgical ossific fragments, calcifications, and/or foreign bodies. Moderate to severe subcutaneous edema is present throughout the leg. Free fluid is visualized in the pelvis. Impression: 1.No arterial injury is identified. The lower extremity arteries are patent with three vessel runoff at the distal leg. 2.Subcutaneous edema and hemorrhage, and a 3.3 x 1.5 x 4.5 cm hematomain the subcutaneous tissues at the lateral aspect of the proximal thigh. 3.Femoral intertrochanteric fracture with cephalomedullary nail fixation. > Interpreting Provider: Dami Ken MD on 02/04/2024 9:25 AM Lou Romero MD CT ORDERABLES * EKG 12-LEAD (02/04/2024 2:26 AM CDT) Only the most recent of3 resultswithin the time period is included. Ventricular Rate 99 BPM [facility] Atrial Rate 99 BPM [facility] P-R Interval 160 ms [facility] QRS Duration ms 92 ms [facility] Q-T Interval ms 382 ms [facility] QTC Calculation (Bezet) 490 ms [facility] MUSE Calculated P [place] 63 degrees [facility] MUSE Calculated R [place] 86 degrees [facility] MUSE Calculated T [place] 63 degrees [facility] MUSE Interpretation EKG SINUS RHYTHM WITH PREMATURE ATRIAL COMPLEXES LOW VOLTAGE QRS PROLONGED QT ABNORMAL ECG WHEN COMPARED WITH ECG OF 28-JAN-2024 06:39, PREMATURE ATRIAL COMPLEXES ARE NOW PRESENT QRS AXIS SHIFTED RIGHT Confirmed by ELENO DEGROOT MD ([id number]) on 02/06/2024 11:07:30 AM [facility] M[facility] 02/04/2024 2:26 AM CDT 02/06/2024 11:07 AM CDT Lou Romero MD ECG ORDERABLES [facility] M[facility] * XR CHEST PA AND LATERAL (02/04/2024 12:06 AM CDT) Anatomical Region Laterality Modality Chest Radiographic Petrona ging 02/04/2024 9:50 AM CDT Impressions 02/04/2024 1:58 PM CDT IMPRESSION: Bilateral interstitial and airspace opacities. Considerations include pulmonary edema and/or multifocal/atypical pneumonia. Report dictated by Wolfgang Zabala MD (nursing resident). I, Sidra Green MD have personally reviewed and interpreted this examination/study. > Interpreting Provider: Sidra Green MD on 02/04/2024 1:58 PM Narrative 02/04/2024 1:58 PM CDT PROCEDURE: XR CHEST 2VW, DATE/TIME OF EXAM: 02/04/2024 12:07 AM, LOCATION [facility] INDICATION: R09.02: Hypoxia ADDITIONAL CLINICAL INFORMATION: Ordering Provider Reason For Exam: ?infection COMPARISON: CT angiogram chest 01/29/2024 TECHNIQUE: Frontal and lateral radiographs of the chest. FINDINGS: There is bilateral patchy airspace opacities involving the bilateral lower lobes compatible with multifocal pneumonia. Bilateral interstitial opacities may represent a component of pulmonary edema. A small left-sided pleural effusion is present. No pneumothorax. The cardiac silhouette is normal. There is atherosclerotic calcification of the aorta. The visible bony thorax is intact. Procedure Note Sidra Green MD - 02/04/2024 PROCEDURE: XR CHEST 2VW, DATE/TIME OF EXAM: 02/04/2024 12:07 AM, LOCATION [facility] INDICATION: R09.02: Hypoxia ADDITIONAL CLINICAL INFORMATION: Ordering Provider Reason For Exam: ?infection COMPARISON: CT angiogram chest 01/29/2024 TECHNIQUE: Frontal and lateral radiographs of the chest. FINDINGS: There is bilateral patchy airspace opacities involving the bilaterallower lobes compatible with multifocal pneumonia. Bilateral interstitial opacities may represent a component of pulmonary edema. A smallleft-sided pleural effusion is present. No pneumothorax. The cardiac silhouette is normal. There is atherosclerotic calcificationof the aorta. The visible bony thorax is intact. IMPRESSION: Bilateral interstitial and airspace opacities. Considerations include pulmonary edema and/or multifocal/atypical pneumonia. Report dictated by Wolfgang Zabala MD (nursing resident). I, Sidra Green MD have personally reviewed and interpreted this examination/study. > Interpreting Provider: Sidra Green MD on 02/04/2024 1:58 PM Lou Romero MD DIAGNOSTIC IMAGING O RDERABLES * LIN DIRECT C3 (02/03/2024 11:49 PM CDT) Only the most recent of2 resultswithin the time period is included. Anti-C3 Lin POS 02/05/2024 5:46 AM CDT [facility] Comment:TESTING PERFORMED BY [facility] Blood Bank BLOOD SPECIMEN / Unknown Venipuncture / Unknown 02/03/2024 11:49 PM CDT 02/04/2024 12:05 AM CDT Letty Rosa MUSIC THEORY PROFESSOR-MANAGER TRAFFIC LAB - BLOOD BANK ORDERABLES [facility] [address] [place] [address], [facility] [phone] * LACTIC ACID BLOOD REFLEX TO REPEAT (02/03/2024 11:49 PM CDT) Lactic Acid-Stat 1.4 <=2.0 mmol/L 02/04/2024 1:55 AM CDT [facility] Blood BLOOD SPECIMEN / Unknown Venipuncture / Unknown 02/03/2024 11:49 PM CDT 02/03/2024 11:59 PM CDT Luo Romero MD LAB - CHEMISTRY CHRISTY DIAZ Performing Organization Address City/[facility]/ZIP Co de Phone Number [facility] [address] [address], [place] [phone] * ILN DIRECT IGG (02/03/2024 11:49 PM CDT) Only the most recent of2 resultswithin the time period is included. IgG Lin POS 02/05/2024 5:46 AM CDT [facility] Comment:TESTING PERFORMED BY MyAGENT REFERENCE LAB Blood Bank BLOOD SPECIMEN / Unknown Venipuncture / Unknown 02/03/2024 11:49 PM CDT 02/04/2024 12:05 AM CDT Letty Rosa MUSIC THEORY PROFESSOR-MANAGER TRAFFIC LAB - BLOOD BANK ORDERABLES Performing Organization Address [facility] Co de Phone Number [facility] [address] [place] [address], [place] [phone] * TROPONIN-I HIGH SENSITIVE BASELINE + 1HR (02/03/2024 11:49 PM CDT) Troponin I High Sensitive 3 <=14 ng/L 02/04/2024 1:42 AM CDT [facility] Blood BLOOD SPECIMEN / Unknown Venipuncture / Unknown 02/03/2024 11:49 PM CDT 02/03/2024 11:59 PM CDT Lou Romero MD LAB - CHEMISTRY CHRISTY DIAZ Performing Organization Address City/[facility]/ZIP Co de Phone Number [facility] [address] [address], [place] [phone] * ELUTION (02/03/2024 11:49 PM CDT) Only the most recent of2 resultswithin the time period is included. Elution NEG 02/05/2024 5:47 AM CDT [facility] Comment:TESTING PERFORMED BY [facility] Blood Bank BLOOD SPECIMEN / Unknown Venipuncture / Unknown 02/03/2024 11:49 PM CDT 02/04/2024 12:05 AM CDT Letty Rosa APRN-MANAGER TRAFFIC LAB - BLOOD BANK ORDERABLES Performing Organization Address City/[facility]/ZIP Co de Phone Number [facility] [address] [place] [address], [facility] [phone] * CULTURE BLOOD (02/03/2024 11:49 PM CDT) Only the most recent of2 resultswithin the time period is included. [facility] Culture No growth day 5 HEAVEN 02/09/2024 2:31 AM CDT [facility] Blood PERIPHERAL BLOOD / Unknown Venipuncture / Unknown 02/03/2024 11:49 PM CDT 02/03/2024 11:58 PM CDT Lou Romero MD LAB - MICROBIOLOGY O RDERABLES Performing Organization Address City/[facility] Co de Phone Number [facility] [address] [place] [address], [facility] [phone] * TYPE + SCREEN PANEL (02/03/2024 11:49 PM CDT) Only the most recent of2 resultswithin the time period is included. Antibody Screen POS 3:06 AM CDT [facility] ABO Rh A POS 02/04/2024 3:06 AM CDT [facility] Comment:Previously: NRD NRD 02/04/24 00:24 Blood Bank BLOOD SPECIMEN / Unknown Venipuncture / Unknown 02/03/2024 11:49 PM CDT 02/04/2024 12:05 AM CDT Letty Rosa MUSIC THEORY PROFESSOR-MANAGER TRAFFIC LAB - BLOOD BANK ORDERABLES Performing Organization Address City/[facility]/ZIP Co de Phone Number [facility] [address] [place] [address], [facility] [phone] * LIN DIRECT (02/03/2024 11:49 PM CDT) Only the most recent of2 resultswithin the time period is included. Pathologist [facility] Direct Lin (NITESH) POS 02/11/2024 6:33 PM CDT [facility] Blood Bank BLOOD SPECIMEN / Unknown Venipuncture / Unknown 02/03/2024 11:49 PM CDT 02/04/2024 12:05 AM CDT Letty [facility] - [facility]LOOD [facility]ANK ORDERABLES [facility] [address] [place] [address], [facility] [phone] * ANTIBODY IDENTIFICATION (02/03/2024 11:49 PM CDT) Only the most recent of2 resultswithin the time period is included. [facility] Antibody 1 POS, Cold Auto Antibody 02/05/2024 5:45 AM CDT [facility] Comment:TESTING PERFORMED BY [facility] REFERENCE LAB Blood Bank BLOOD SPECIMEN / Unknown Venipuncture / Unknown 02/03/2024 11:49 PM CDT 02/04/2024 12:05 AM CDT Letty Rosa MUSIC THEORY [facility] - BLOOD BANK ORDERABLES [facility] [address] [place] [address], [place] [phone] * (ABNORMAL) COMPREHENSIVE METABOLIC PANEL (02/03/2024 11:49 PM CDT) Only the most recent of4 resultswithin the time period is included. [facility] BUN <5(L) 7 - 26 mg/dL 02/04/2024 1:44 AM CDT [facility] Creatinine 0.29(L) 0.56 - 0.96 mg/dL 02/04/2024 1:44 AM CDT [facility] Sodium 123(LL) 136 - 145 mmol/L 02/04/2024 1:44 AM [facility] Potassium 3.0(L) 3.5 - 4.5 mmol/L 02/04/2024 1:44 AM [facility] Chloride 92(L) 98 - 107 mmol/L 02/04/2024 1:44 AM [facility] CO2 22 22 - 29 mmol/L 02/04/2024 1:44 AM [facility] Glucose 123(H) 70 - 115 mg/dL 02/04/2024 1:44 AM [facility] Calcium 8.0(L) 8.4 - 10.2 mg/dL 02/04/2024 1:44 AM [facility] Protein Total 6.1 6.0 - 8.3 g/dL 02/04/2024 1:44 AM [facility] Albumin 2.4(L) 3.4 - 5.0 g/dL 02/04/2024 1:44 AM [facility] Bilirubin Total 4.0(H) 0.2 - 1.2 mg/dL 02/04/2024 1:44 AM [facility] Alkaline Phosphatase 313(H) 40 - 150 U/L 02/04/2024 1:44 AM [facility] ALT 23 5 - 55 U/L 02/04/2024 1:44 AM [facility] AST 83(H) 5 - 34 U/L 02/04/2024 1:44 AM [facility] Anion Gap 9 6 - 16 02/04/2024 1:44 AM [facility] BUN/Creatinine Ratio <17 7 - 23 02/04/2024 1:44 AM [facility] Osmolality Calculated <255(L) 275 - 295 mOsm/kg 02/04/2024 1:44 AM [facility] Albumin/Globulin Ratio 0.6(L) 1.1 - 2.3 02/04/2024 1:44 AM [facility] eGFR by CKD-EPI >90 >=90 mL/min/1.7 3 m2 02/04/2024 1:44 AM [facility] Blood BLOOD SPECIMEN / Unknown Venipuncture / Unknown 02/03/2024 11:49 PM CDT 02/03/2024 11:59 PM CDT Lou Romero MD LAB - CHEMISTRY CHRISTY DIAZ [facility] [address] [place] [address], [facility] [phone] * PREPARE (CROSSMATCH) RBC UNIT(S), 2 Units (02/01/2024 1:17 AM CDT) Unit Description AS1 LR PRBC [facility] Unit ABO A [facility] Unit Rh POS [facility] Product Number R02 [facility] Unit Donor # [id number] [facility] Unit Status released [facility] Product Code [id number] [facility] Blood Type Barcode 6200 [facility] Expiration Date S BLOOD BANK LAB Unit Description AS1 LR PRBC [facility] Unit ABO A [facility] Unit Rh POS [facility] Product Number R02 [facility] B LOOD [facility] Unit Donor # [id number] [facility] Unit Status released [facility] Product Code [id number] [facility] B[facility] OD [facility] LAB Blood Type Barcode 6200 [facility] Expiration Date S BLOOD BANK LAB Blood Bank BLOOD SPECIMEN / Unknown 01/28/2024 4:12 AM CDT Melo Santillan MD LAB - BLOOD BANK DENA DEL ANGEL [facility] [address] [place] [address], [place] [phone] * (ABNORMAL) GLUCOSE - POINT OF CARE (01/31/2024 8:39 AM CDT) Only the most recent of2 resultswithin the time period is included. [facility] Glucose WB/POC 210(H) 70 - 115 mg/dL 01/31/2024 8:44 AM CDT [facility] Specimen Type Arterial 01/31/2024 8:44 AM CDT [facility] Blood BLOOD SPECIMEN / Unknown 01/31/2024 8:39 AM CDT 01/31/2024 8:44 AM CDT Sherrie Marie MD LAB - POINT OF CARE ORDERABLES Performing Organization Address City/[facility]/ZIP Co de Phone Number [address] [address], [facility] [phone] * (ABNORMAL) PHOSPHORUS BLOOD (01/30/2024 6:20 AM CDT) Only the most recent of2 resultswithin the time period is included. Phosphorus 1.8(L) 2.9 - 5.1 mg/dL 01/30/2024 7:18 AM CDT [facility] Blood BLOOD SPECIMEN / Unknown Lab Venipuncture / Unknown 01/30/2024 6:20 AM CDT 01/30/2024 6:52 AM CDT Sherrie Marie MD LAB - CHEMISTRY ORDE RABLES Performing Organization Address City/[facility]/ZIP Co de Phone Number [address] [address], [facility] [phone] * CT ANGIO CHEST PULM EMBOLISM (01/29/2024 7:10 AM CDT) Anatomical Region Laterality Modality Chest Computed Tomogra phy 01/29/2024 7:27 AM CDT Impressions 01/29/2024 4:30 PM CDT Impression: 1.No evidence of acute pulmonary embolism. 2.Consolidative changes and groundglass opacities involving both lung bases and to a lesser extent the upper lobes likely representing pneumonia/aspiration. > Dictated by Demetrio Radford MD, PhD (nursing resident) IRamsey have personally reviewed and interpreted this examination/study. > Interpreting Provider: Ramsey Matos on 01/29/2024 4:30 PM Narrative 01/29/2024 4:30 PM CDT PROCEDURE: CT ANGIO CHEST PULM EMBOLISM, DATE/TIME OF EXAM: 01/29/2024 7:11 AM, LOCATION [facility] INDICATION: R09.02: Hypoxia ADDITIONAL CLINICAL INFORMATION: Ordering Provider Reason For Exam: hypoxia Technologist Note: Additional: COMPARISON: None. TECHNIQUE: CT of the chest was performed following the uneventful administration of 75 mL of Isovue 370 intravenous contrast according to a pulmonary embolism protocol. Multiplanar reconstructions were created. Findings: Study Quality This examination for the diagnosis of pulmonary embolism is adequate. Pulmonary Arteries: No evidence of acute pulmonary embolism. Thoracic Vasculature: Trace atherosclerotic plaques are present but patent without significant focal stenosis. Partially visualized C1 carotid artery segments: Patent without significant focal stenosis. Subclavian arteries: Trace atherosclerotic plaques are present but patent without significant focal stenosis. Brachiocephalic artery: Trace atherosclerotic plaques are present but patent without significant focal stenosis. Thorax: Lower Neck and Axillae: Normal. Lungs: Scattered areas of groundglass opacities and consolidative changes involving predominantly the bilateral lower lobes but also to a lesser extent both upper lobes likely representing underlying pneumonia/aspiration. No pleural fluid or pneumothorax is present. Heart and Pericardium: The cardiac chambers are normal in size. No pericardial fluid or thickening is present.. Mediastinum and Nadya: No enlarged lymph nodes are present. Bones: No acute fracture or osseous lesion. Mild multilevel degenerative changes are seen in the spine. Soft Tissues: Normal. Upper Abdomen: Sludge filled gallbladder, with dependent, cholelithiasis. Otherwise, the. visible portions of the upper abdominal organs are normal. Procedure Note Ramsey Matos MD - 01/29/2024 PROCEDURE: CT ANGIO CHEST PULM EMBOLISM, DATE/TIME OF EXAM: 01/29/2024 7:11 AM, LOCATION [facility] INDICATION: R09.02: Hypoxia ADDITIONAL CLINICAL INFORMATION: Ordering Provider Reason For Exam: hypoxia Technologist Note: Additional: COMPARISON: None. TECHNIQUE: CT of the chest was performed following the uneventful administration of 75 mL of Isovue 370 intravenous contrast according toa pulmonary embolism protocol. Multiplanar reconstructions were created. Findings: Study Quality This examination for the diagnosis of pulmonary embolism is adequate. Pulmonary Arteries: No evidence of acute pulmonary embolism. Thoracic Vasculature: Trace atherosclerotic plaques are present but patent without significant focal stenosis. Partially visualized C1 carotid artery segments: Patent withoutsignificant focal stenosis. Subclavian arteries: Trace atherosclerotic plaques are present butpatent without significant focal stenosis. Brachiocephalic artery: Trace atherosclerotic plaques are present but patent without significant focal stenosis. Thorax: Lower Neck and Axillae: Normal. Lungs: Scattered areas of groundglass opacities and consolidative changes involving predominantly the bilateral lower lobes but also to a lesser extent both upper lobes likely representing underlying pneumonia/aspiration. No pleural fluid or pneumothorax is present. Heart and Pericardium: The cardiac chambers are normal in size. No pericardial fluid orthickening is present.. Mediastinum and Nadya: No enlarged lymph nodes are present. Bones: No acute fracture or osseous lesion. Mild multilevel degenerativechanges are seen in the spine. Soft Tissues: Normal. Upper Abdomen: Sludge filled gallbladder, with dependent, cholelithiasis. Otherwise,the. visible portions of the upper abdominal organs are normal. Impression: 1.No evidence of acute pulmonary embolism. 2.Consolidative changes and groundglass opacities involving both lungbases and to a lesser extent the upper lobes likely representing pneumonia/aspiration. > Dictated by Demetrio Radford MD, PhD (nursing resident) Ramsey Castaneda have personally reviewed and interpreted this examination/study. > Interpreting Provider: Ramsey Matos on 01/29/2024 4:30 PM Elissa Reynoso MD CT ORDERABLES * XR CHEST 1VW PORTABLE (01/29/2024 6:40 AM CDT) Anatomical Region Laterality Modality Chest Radiographic Petrona ging 01/29/2024 3:06 PM CDT Impressions 01/30/2024 10:14 AM CDT IMPRESSION: The multifocal airspace opacities and interstitial opacities seen on CT that followed this examination was not not well appreciated on this exam recommend referral to that report for details. Karma Castaneda MD have personally reviewed and interpreted this examination/study. > Interpreting Provider: Karma Gonzalez MD on 01/30/2024 10:14 AM Narrative 01/30/2024 10:14 AM CDT PROCEDURE: XR CHEST 1VW PORTABLE DATE/TIME OF EXAM: 01/29/2024 6:40 AM CLINICAL INFORMATION: None relevant/not provided if blank. Indication: Z72.0: Tobacco use Additional History: COMPARISON: CT chest 01/29/2024 FINDINGS: The trachea is midline. The cardiomediastinal silhouette is normal in size and appearance. No evidence of pleural effusion, pneumothorax or large consolidation. The Interstitial opacities and consolidative opacities seen on CT chest that follow this examination are not well appreciated on the study please see that report for details. The osseous and soft tissue structures are stable. Procedure Note Karma Gonzalez MD - 01/30/2024 PROCEDURE: XR CHEST 1VW PORTABLE DATE/TIME OF EXAM: 01/29/2024 6:40 AM CLINICAL INFORMATION: None relevant/not provided if blank. Indication: Z72.0: Tobacco use Additional History: COMPARISON: CT chest 01/29/2024 FINDINGS: The trachea is midline. The cardiomediastinal silhouette is normal insize and appearance. No evidence of pleural effusion, pneumothorax or large consolidation. The Interstitial opacities and consolidative opacitiesseen on CT chest that follow this examination are not well appreciated on the study please see that report for details. The osseous and soft tissue structures are stable. IMPRESSION: The multifocal airspace opacities and interstitial opacities seen on CT that followed this examination was not not well appreciated on this exam recommend referral to that report for details. I, Karma Gonzalez MD have personally reviewed and interpreted this examination/study. > Interpreting Provider: Karma Gonzalez MD on 0:14 AM Erick Cornejo MD DIAGNOSTIC IMAGING O RDERABLES * (ABNORMAL) CALCIUM IONIZED WHOLE BLOOD (01/29/2024 4:53 AM CDT) Calcium Ionized 1.06 mmol/L 01/29/2024 5:31 AM T [facility] pH 7.31(L) 7.35 - 7.45 pH 01/29/2024 5:31 AM [facility] Ionized Calcium pH Adjusted 1.02(L) 1.19 - 1.34 mmol/L 01/29/2024 5:31 AM CDT [facility] Blood BLOOD SPECIMEN / Unknown Lab Venipuncture / Unknown 01/29/2024 4:53 AM CDT 01/29/2024 5:28 AM CDT Gabbie Olivier DO LAB - CHEMISTRY ORDMagalis DIAZ [facility] [address] [place] [address], [facility] [phone] * (ABNORMAL) IRON + TRANSFERRIN PANEL (01/29/2024 4:53 AM CDT) Iron 68 40 - 150 ug/dL 01/29/2024 5:55 AM CDT [facility] Transferrin 152(L) 174 - 382 mg/dL 01/29/2024 5:55 AM CDT [facility] Transferrin Saturation % 36 16 - 50 % 01/29/2024 5:55 AM CDT [facility] TIBC Calculated 190(L) 240 - 450 ug/dL 01/29/2024 5:55 AM CDT [facility] Blood BLOOD SPECIMEN / Unknown Lab Venipuncture / Unknown 01/29/2024 4:53 AM CDT 01/29/2024 5:28 AM CDT Gabbie Olivier DO LAB - CHEMISTRY ORDMagalis DIAZ [facility] [address] [place] [address], [facility] [phone] * TSH REFLEX FREE T4 (01/29/2024 4:52 AM CDT) TSH 3.308 0.350 - 4.940 uIU/mL 01/29/2024 6:35 AM CDT [facility] Blood BLOOD SPECIMEN / Unknown Lab Venipuncture / Unknown 01/29/2024 4:52 AM CDT 01/29/2024 5:33 AM CDT Gabbie Olivier DO LAB - CHEMISTRY ORDMagalis DIAZ [address] [address], [facility] [phone] * FOLATE (01/29/2024 4:52 AM CDT) Folate 12.6 7.0 - 31.4 ng/mL 01/29/2024 6:35 AM CDT [facility] Blood BLOOD SPECIMEN / Unknown Lab Venipuncture / Unknown 01/29/2024 4:52 AM CDT 01/29/2024 5:33 AM CDT Gabbie Olivier DO LAB - CHEMISTRY ORDMagalis DIAZ Performing Organization Address City/[facility]/ZIP Co de Phone Number [address] [address], [facility] [phone] * VITAMIN B12 (01/29/2024 4:52 AM CDT) Vitamin B12 393 213 - 816 pg/mL 01/29/2024 6:35 AM CDT [facility] Blood BLOOD SPECIMEN / Unknown Lab Venipuncture / Unknown 01/29/2024 4:52 AM CDT 01/29/2024 5:33 AM CDT Gabbie Olivier DO LAB - CHEMISTRY CHRISTY DIAZ Performing Organization Address City/[facility]/ZIP Co de Phone Number [address] [address], [facility] [phone] * XR PELVIS W RIGHT HIP 2VW (01/28/2024 6:50 PM CDT) Only the most recent of2 resultswithin the time period is included. Anatomical Region Laterality Modality Pelvis Radiographic Petrona ging 01/30/2024 8:08 PM CDT Narrative 01/30/2024 8:10 PM CDT PROCEDURE: XR PELVIS W RIGHT HIP 2VW DATE/TIME OF EXAM: 01/28/2024 7:04 PM CLINICAL INFORMATION: None relevant/not provided if blank. Indication: S72.141A: Closed intertrochanteric fracture of hip, right, initial encounter (FORMERLY [facility]) Additional History: COMPARISON: None. TECHNIQUE: 3 views of the right hip were obtained. FINDINGS: Postoperative changes and a right transfixing intramedullary nail and femoral neck screw are noted. The hip joint alignment is maintained. Soft tissue swelling and surgical emphysema noted along the right pelvic sidewall. > Interpreting Provider: Karma Gonzalez MD on 01/30/2024 8:10 PM Procedure Note Karma Gonzalez MD - 01/30/2024 PROCEDURE: XR PELVIS W RIGHT HIP 2VW DATE/TIME OF EXAM: 01/28/2024 7:04 PM CLINICAL INFORMATION: None relevant/not provided if blank. Indication: S72.141A: Closed intertrochanteric fracture of hip, right, initial encounter ([facility]) Additional History: COMPARISON: None. TECHNIQUE: 3 views of the right hip were obtained. FINDINGS: Postoperative changes and a right transfixing intramedullary nail and femoral neck screw are noted. The hip joint alignment is maintained. Soft tissue swelling and surgical emphysema noted along the right pelvic sidewall. > Interpreting Provider: Karma Gonzalez MD on 48:10 PM Elissa Reynoso MD DIAGNOSTIC IMAGING ORDERABLES * FL ABEBE SURGERY (01/28/2024 11:44 AM CDT) Narrative [facility] - 01/28/2024 11:44 AM CDT Fluoroscopy was used for this exam in the OR. Please see the Operative report. Elissa Reynoso MD FLUOROSCOPY ORDERAB LES [facility] * ETT LINE PERFORMABLE (01/28/2024 10:54 AM CDT) Narrative Johnna Beckford APRN-CRNA - 01/28/2024 10:54 AM CDT Johnna Beckford APRN-CRNA 01/28/2024 10:54 AM Endotracheal Tube Placement: Patient Location: OR. Intubation Event Date/Time: 01/28/2024 10:28 AM Procedure: intubation ([id number]) Procedure Section: Sedation: under general anesthesia. Indications for Airway Management: anesthesia Induction: standard IV Patient Position: sniffing Mask Ventilation: easy. Blade Type: Emeka Blade Size: 3 Laryngoscopy View: grade 1 (full cords) Intubation Adjuncts: stylet Tube: endotracheal tube Placement: oral Tube type: cuff - inflated Tube Size (MM): 7 Depth of Insertion (CM): 21 Measured From: lips Cuff volume (mL): 6 Cuff Inflated With: air Number of Attempts: 1. Placement Verified By: direct visualization, bilateral breath sounds, chest x-ray and CO2 monitor CXR Findings: ETT in proper place. Tube secured with: adhesive tape. Dentition unchanged? Yes Difficult Airway? No. Procedure Start Time: 01/28/2024 10:28 AM. Staff Section Anesthesia Provider: Johnna Beckford APRN-FUND CONTROLLER, Performed the procedure Provider #1: Cristina Herbert MD. Cristina Herbert MD GENERAL ANESTHESIA O RDERABLES * BLOOD TYPE VERIFICATION (01/28/2024 8:53 AM CDT) ABO Rh A POS 01/28/2024 9:5 7 AM CDT [facility] Blood Bank BLOOD SPECIMEN / Unknown Venipuncture / Unknown 01/28/2024 8:53 AM CDT 01/28/2024 9:19 AM CDT Melo Santillan MD LAB - BLOOD BANK ORD ERABLES [facility] [address] [place] [address], [facility] [phone] * XR KNEE RIGHT 2VW OR LESS (01/28/2024 5:56 AM CDT) Only the most recent of2 resultswithin the time period is included. Anatomical Region Laterality Modality Lower Extremity Radiographic Petrona ging 01/28/2024 5:56 AM CDT Narrative 01/28/2024 7:58 AM CDT EXAMINATION: XR KNEE RIGHT 2VW OR LESS DATE/TIME OF EXAM: 01/28/2024 5:56 AM, LOCATION [facility] HISTORY: M25.551: Right hip pain traction COMPARISON: No prior study is available for comparison. FINDINGS/IMPRESSION: A traction pin has been placed through the proximal shaft of the tibia. No acute fracture or dislocation. The knee joint space is preserved. No joint effusion is seen. Bone density and texture are normal. No significant soft tissue swelling is present. Report dictated by Colby Vázquez MD (nursing resident). Jeannie Castaneda MD have personally reviewed and interpreted this examination/study. > Interpreting Provider: Jeannie Gracia MD on 01/28/2024 7:58 AM Procedure Note Jeannie Gracia MD - 01/28/2024 EXAMINATION: XR KNEE RIGHT 2VW OR LESS DATE/TIME OF EXAM: 01/28/2024 5:56 AM, LOCATION [facility] HISTORY: M25.551: Right hip pain traction COMPARISON: No prior study is available for comparison. FINDINGS/IMPRESSION: A traction pin has been placed through the proximal shaft of the tibia. No acute fracture or dislocation. The knee joint space is preserved. No joint effusion is seen. Bone density and texture are normal. Nosignificant soft tissue swelling is present. Report dictated by Colby Vázquez MD (nursing resident). Jeannie Castaneda MD have personally reviewed and interpreted this examination/study. > Interpreting Provider: Jeannie Gracia MD on 01/28/2024 7:58 AM Melo Santillan MD DIAGNOSTIC IMAGING O RDERABLES * HCG BETA BLOOD QUANTITATIVE (01/28/2024 5:16 AM CDT) Beta-hCG Total Quantitative <3 mIU/mL 01/28/2024 9:14 AM CDT [facility] Comment: HCG Numeric Result Interpretation: Non- Females: < 5 mIU/mL Post-Menopausal Females: < 7 mIU/mL This assay is cleared for use in the early detection of only. It is not approved for any other uses such as tumor marker screening, tumor marker monitoring, etc. and should not be used for any other purposes. Blood BLOOD SPECIMEN / Unknown Venipuncture / Unknown 01/28/2024 5:16 AM CDT 01/28/2024 5:21 AM CDT Neda Thorpe MUSIC THEORY PROFESSOR-MANAGER TRAFFIC LAB - CHEMI STRY ORDERABLES Performing Organization Address City/[facility]/ZIP Co de Phone Number [address] [address], [facility] [phone] * (ABNORMAL) PTT [facility] (01/28/2024 3:56 AM CDT) APTT 47.4(H) 23.0 - 38.4 Seconds 01/28/2024 4:33 AM CDT [facility] Comment:Suggested therapeuti c range for full dose I.V. unfractionated heparin therapy for venous thromboembolism is 71 to 109 seconds. Blood BLOOD SPECIMEN / Unknown Venipuncture / Unknown 01/28/2024 3:56 AM CDT 01/28/2024 4:08 AM CDT Melo Santillan MD LAB - COAGULATION OR DERABLES Performing Organization Address City/[facility]/ZIP Co de Phone Number [address] [address], [facility] [phone] * HEMOGLOBIN A1C (01/28/2024 3:56 AM CDT) Hemoglobin A1c 4.6 <=5.6 % 01/28/2024 8:50 AM CDT [facility] Estimated Average Glucose 85 mg/dL 01/28/2024 8:50 AM CDT [facility] Comment: HbA1c Interpretation: Normal : < 5.7% Pre-diabetes: 5.7-6.4% Diabetes: Equal to or greater than 6.5% Test results diagnostic of diabetes should be repeated for confirmation. Treatment target values recommended by ADA and other clinical organizations should be used to evaluate metabolic control in patients. Reference: [place] [employer], Standards of Care in Diabetes -2020 In patients 70 years and older consider HbA1c target range of 7.0-7.5% (Reference: Wong Amor et al. JENNIFER. 2012) The Sebia assay for the measurement of HbA1c is a National Glycohemoglobin Standardization Program (NGSP) certified method. Blood BLOOD SPECIMEN / Unknown Venipuncture / Unknown 01/28/2024 3:56 AM CDT 01/28/2024 4:08 AM CDT Melo Santillan MD LAB - CHEMISTRY CHRISTY DIAZ Performing Organization Address City/[facility]/ZIP Co de Phone Number [address] [address], [facility] [phone] * (ABNORMAL) VITAMIN D 25-HYDROXY (01/28/2024 3:56 AM CDT) [facility] Vitamin D, 25 Hydroxy 5.5(L) 30.0 - 80.0 ng/mL 01/28/2024 4:52 AM CDT [facility] Comment: The recommendations for 25-Hydroxy Vitamin D clinical decision points are as follows: Deficient: <20.0 ng/mL Insufficient: 20.0 - 29.9 ng/mL Sufficient: 30.0 - 100.0 ng/mL Potential Toxicity: >100 ng/mL Reference: The Endocrine Society Clinical Practice Guidelines. 2011 If the 25-Hydroxy Vitamin D results are inconsitent with clinical evidence, it is recommended that follow-up testing using a method such as LC/MS/MS be performed to confirm the result. Blood BLOOD SPECIMEN / Unknown Venipuncture / Unknown 01/28/2024 3:56 AM CDT 01/28/2024 4:08 AM CDT Melo Santillan MD LAB - CHEMISTRY CHRISTY DIAZ Performing Organization Address City/[facility]/ZIP Co de Phone Number [address] [address], [facility] [phone] * XR STRESS ANY JOINT (01/28/2024 3:07 AM CDT) Anatomical Region Laterality Modality Lower Extremity, Upper Extremity Radiographic Imaging 01/28/2024 4:57 AM CDT Narrative 01/28/2024 7:11 AM CDT PROCEDURE: XR STRESS ANY JOINT DATE/TIME OF EXAM: 01/28/2024 3:07 AM CLINICAL INFORMATION: None relevant/not provided if blank. Indication: M25.551: Right hip pain Additional History: COMPARISON: X-ray pelvis from the same day. FINDINGS/IMPRESSION: With traction of the right lower extremity, notably improved fracture alignment of an right intratrochanteric fracture, nearly physiologic with decreased angulation. Report dictated by Colby Vázquez MD (nursing resident). Jeannie Castaneda MD have personally reviewed and interpreted this examination/study. > Interpreting Provider: Jeannie Gracia MD on 01/28/2024 7:11 AM Procedure Note Jeannie Gracia MD - 01/28/2024 PROCEDURE: XR STRESS ANY JOINT DATE/TIME OF EXAM: 01/28/2024 3:07 AM CLINICAL INFORMATION: None relevant/not provided if blank. Indication: M25.551: Right hip pain Additional History: COMPARISON: X-ray pelvis from the same day. FINDINGS/IMPRESSION: With traction of the right lower extremity, notably improved fracture alignment of an right intratrochanteric fracture, nearly physiologicwith decreased angulation. Report dictated by Colby Vázquez MD (nursing resident). Jeannie Castaneda MD have personally reviewed and interpreted this examination/study. > Interpreting Provider: Jeannie Gracia MD on 01/28/2024 7:11 AM Melo Santillan MD DIAGNOSTIC IMAGING O RDERABLES * XR PELVIS 1 OR 2VW (01/28/2024 2:48 AM CDT) Anatomical Region Laterality Modality Pelvis Radiographic Petrona ging 01/28/2024 3:27 AM CDT Impressions 01/28/2024 7:09 AM CDT IMPRESSION: Mildly comminuted right intertrochanteric fracture. There is apex lateral angulation. Report dictated by Colby Vázquez MD (nursing resident). Jeannie Castaneda MD have personally reviewed and interpreted this examination/study. > Interpreting Provider: Jeannie Gracia MD on 01/28/2024 7:09 AM Narrative 01/28/2024 7:09 AM CDT EXAMINATION: XR PELVIS 1 OR 2VW DATE/TIME OF EXAM: 01/28/2024 2:48 AM, LOCATION [facility] HISTORY: M25.551: Right hip pain poor positioning from initial COMPARISON: No prior study is available for comparison. FINDINGS: Mildly comminuted right intertrochanteric fracture. There is apex lateral angulation. Bilateral femoral heads are well-seated in respective acetabular fossas.The bilateral hip joint spaces are preserved. There is no pubic symphysis diastasis. The sacroiliac joints are not widened. Punctate radiodensities project over the right inguinal region and the left femoral neck. Procedure Note Jeannie Gracia MD - 01/28/2024 EXAMINATION: XR PELVIS 1 OR 2VW DATE/TIME OF EXAM: 01/28/2024 2:48 AM, LOCATION [facility] HISTORY: M25.551: Right hip pain poor positioning from initial COMPARISON: No prior study is available for comparison. FINDINGS: Mildly comminuted right intertrochanteric fracture. There is apexlateral angulation. Bilateral femoral heads are well-seated in respective acetabular fossas.The bilateral hip joint spaces are preserved. There isno pubic symphysis diastasis. The sacroiliac joints are not widened.Punctate radiodensities project over the right inguinal region and the leftfemoral neck. IMPRESSION: Mildly comminuted right intertrochanteric fracture. There is apexlateral angulation. Report dictated by Colby Vázquez MD (nursing resident). I, Jeannie Gracia MD have personally reviewed and interpreted this examination/study. > Interpreting Provider: Jeannie Gracia MD on 01/28/2024 7:09 AM Melo Santillan MD DIAGNOSTIC IMAGING O RDERABLES * WA DESTRUCT BENIGN LESION, 1-14 (12/22/2023 1:14 PM CDT) Narrative Nando Eugene MD - 12/22/2023 1:14 PM CDT Navin Ruffin MD 12/22/2023 1:15 PM Diagnosis and treatment options discussed. Cryotherapy (Liquid Nitrogen) to 1 lesion(s) for 10 seconds. Number of cycles: 1-2. Wound care reviewed. Locations: R masood Ruffin MD Dermatology PGY-4 Nando Eugene MD PROCEDURE/MINOR SURG ICAL ORDERABLES * CALPROTECTIN FECAL (09/02/2018 8:00 AM AUTO CLOCKS REPAIRER) Calprotectin Fecal <16 0 - 120 ug/g [facility] INSURANCE BILL Comment: Concentration Interpretation Follow-Up <16 - 50 ug/g Normal None >50 -120 ug/g Borderline Re-evaluate in 4-6 weeks >120 ug/g Abnormal Repeat as clinically indicated Stool STOOL SPECIMEN / Unknown 09/02/2018 8:00 AM AUTO CLOCKS REPAIRER 09/02/2018 Narrative Resulting Agency Comment [address] [phone] [place] ARBOLEDA-C LAB - BODY FLUID ORDERABLES Performing Organization Address [facility] de Phone Number [facility] INSURANCE BILL [address] [place] [address] * PANCREATIC ELASTASE FECES (09/02/2018 8:00 AM AUTO CLOCKS REPAIRER) Pancreatic Elastase Feces >500 >200 ug Elast./g [facility] INSURANCE BILL Comment: Severe Pancreatic Insufficiency: <100 Moderate Pancreatic Insufficiency: 100 - 200 Normal: >200 09/02/2018 8:00 AM AUTO CLOCKS REPAIRER 09/02/2018 Narrative Resulting Agency Comment [address] [phone] [place] ARBOLEDA-C LAB - BODY FLUID ORDERABLES Performing Organization Address [facility] de Phone Number [facility] INSURANCE BILL [address] [place] [address] * TISSUE TRANSGLUTAMINASE AB IGA (08/31/2018 11:04 AM AUTO CLOCKS REPAIRER) TTG Antibody IgA <2 0 - 3 U/mL [facility] INSURANCE BILL Comment: Negative 0 - 3 Weak Positive 4 - 10 Positive >10 . Tissue Transglutaminase (tTG) has been identified as the endomysial antigen. Studies have demonstr- ated that endomysial IgA antibodies have over 99% specificity for gluten sensitive enteropathy. Blood BLOOD SPECIMEN / Unknown 08/31/2018 11:04 AM AUTO CLOCKS REPAIRER 08/31/2018 Narrative Resulting Agency Comment [facility] [address] [facility] [phone] [place] Reardon PA-C LAB - SEROLOGY OR DERABLES Performing Organization Address City/[facility]/ZIP Co de Phone Number [facility] INSURANCE BILL [address] [place] [address] * TSH (08/31/2018 11:04 AM AUTO CLOCKS REPAIRER) Only the most recent of2 resultswithin the time period is included. Pathologist [facility] TSH 1.500 0.450 - 4.500 uIU/mL [facility] INSURANCE BILL Blood BLOOD SPECIMEN / Unknown 08/31/2018 11:04 AM AUTO CLOCKS REPAIRER 08/31/2018 Narrative Resulting Agency Comment [facility] [address] [facility] [phone] [place] Reardon PA-C LAB - CHEMISTRY O RDERABLES Performing Organization Address [facility] Co de Phone Number [facility] INSURANCE BILL [address] [place] [address] * T4 FREE (08/31/2018 11:04 AM AUTO CLOCKS REPAIRER) Only the most recent of2 resultswithin the time period is included. T4 Free 1.13 0.82 - 1.77 ng/dL [facility] INSURANCE BILL Blood BLOOD SPECIMEN / Unknown 08/31/2018 11:04 AM AUTO CLOCKS REPAIRER 08/31/2018 Narrative Resulting Agency Comment [facility] [address] [facility] [phone] [place] Reardon PA-C LAB - CHEMISTRY O RDERABLES Performing Organization Address City/[facility] Co de Phone Number [facility] INSURANCE BILL [address] [place] [address] * (ABNORMAL) IGA BLOOD (08/31/2018 11:04 AM AUTO CLOCKS REPAIRER) IgA Quantitative 505(H) 87 - 352 mg/dL [facility] INSURANCE BILL Blood BLOOD SPECIMEN / Unknown 08/31/2018 11:04 AM AUTO CLOCKS REPAIRER 08/31/2018 Narrative Resulting Agency Comment [facility] [address] [facility] [phone] [place] Reardon PA-C LAB - CHEMISTRY O RDERABLES [facility] INSURANCE BILL [address] [place] [address] * IMAGING/RADIOLOGY/XRAY RESULTS ORDER (08/16/2018 7:39 AM AUTO CLOCKS REPAIRER) Only the most recent of2 resultswithin the time period is included. Anatomical Region Laterality Modality Other Narrative 08/16/2018 7:39 AM AUTO CLOCKS REPAIRER Ordered by an unspecified provider. Scanned Document IMAGING * US THYROID (02/11/2018 3:20 PM CDT) Anatomical Region Laterality Modality Chest Ultrasound 02/11/2018 3:13 PM CDT Impressions 02/11/2018 3:45 PM CDT IMPRESSION: 1.Diffusely increased hyperemia of the thyroid gland. Clinical correlation for hyperthyroidism is recommended. 2.No discrete thyroid nodule is identified. Dictated by Mike Bell MD (Strike Operations Officer). I, Dr. LE HADLEY M.D. have personally reviewed and interpreted this examination/study. This report was electronically signed by LE HADLEY M.D. on 02/11/2018 3:45 PM . Narrative 02/11/2018 3:45 PM CDT EXAMINATION: Thyroid sonogram HISTORY: Evaluation for thyroid nodule. COMPARISON: No prior study is available for comparison. FINDINGS: Right thyroid lobe: 4.0 x 1.1 x 1.4 cm Left thyroid lobe: 4.7 x 0.9 x 1.4 cm Isthmus: 2 mm The right and left thyroid lobes are homogeneous in echogenicity. No discrete thyroid nodule is identified. The isthmus is not thickened. There is diffusely increased hyperemia of the thyroid gland. Procedure Note Le Hadley MD - 02/11/2018 EXAMINATION: Thyroid sonogram HISTORY: Evaluation for thyroid nodule. COMPARISON: No prior study is available for comparison. FINDINGS: Right thyroid lobe: 4.0 x 1.1 x 1.4 cm Left thyroid lobe: 4.7 x 0.9 x 1.4 cm Isthmus: 2 mm The right and left thyroid lobes are homogeneous in echogenicity. No discrete thyroid nodule is identified. The isthmus is not thickened.There is diffusely increased hyperemia of the thyroid gland. IMPRESSION: 1.Diffusely increased hyperemia of the thyroid gland. Clinicalcorrelation for hyperthyroidism is recommended. 2.No discrete thyroid nodule is identified. Dictated by Mike Bell MD (Strike Operations Officer). I, Dr. LE HADLEY M.D. have personally reviewed and interpreted this examination/study. This report was electronically signed by LE HADLEY M.D. on02/11/2018 3:45 PM . Chivo Alvarez MD US ORDERABLES * US TRANSVAGINAL NON OB (11/17/2017 12:23 PM CDT) Anatomical Region Laterality Modality Abdomen Ultrasound Narrative 11/17/2017 12:23 PM CDT Rachael Raines 11/17/2017 12:23 PM Ready in [employer]. Toribio Moya MD US ORDERABLES Care Teams Bus Transportation Manager Relationship Specialty Start Date End Date Kristian Granda MD PCP - General 08/24/18
--- OUTSIDE RECORDS SUMMARY | 2024-09-04 19:01 | XMS_ITS | Encounter Summary ---
Author Organization [facility] Address [address] [place] [address] Phone Care Team Providers Care Fur Stretcher Name Role Phone Kristian Granda MD Primary Care Provider [phone] Adali Johnson MD Unavailable Reason for Visit * Reason Comments Medication Refill Encounter Details Date Type Department Care Team ([facility] Contact Info) Description 01/18/2024 Refill [facility] [address] [address] Adali Johnson MD [address] [place] [phone] Medication Refill Social History Tobacco Use Types Packs/Day Years Used Date Smoking Tobacco: Every Day Cigarettes Smokeless Tobacco: Never Alcohol Use Standard Drinks/Week Comments Yes 0 (1 standard drink = 0.6 oz pur e alcohol) 125 ounces [place] [employer] daily Comments No Sex and Gender Information Value Date Recorded Sex Assigned at Female 09/15/2023 8:24 PM BARREL LATHE OPERATOR OUTSIDE Legal Sex Female 8:09 PM BARREL LATHE OPERATOR OUTSIDE Gender Identity Female 09/15/2023 8:24 PM BARREL LATHE OPERATOR OUTSIDE Sexual Orientation Not on file documented as of this encounter Miscellaneous Notes * Telephone Encounter - Jennifer Saenz RN - 01/18/2024 11:54 AM CDT Refill request from pharmacy. Please fill if appropriate. documented in this encounter Plan of Treatment Upcoming Encounters Date Type Department Care Team (Late st Contact Info) Description 09/26/2024 10:00 AM CDT Lab [facility] [address] [phone] Lab, [facility] 09/26/2024 10:15 AM CDT Office Visit [facility] [address] [phone] Adali Johnson MD [address] [place] [address] [phone] documented as of this encounter Visit Diagnoses Diagnosis Thrombocytopenia (HCC) Thrombocytopenia, unspecified documented in this encounter Care Teams Fur Stretcher Relationship Specialty Start Date End Date Kristian Granda MD [address] [place] [address] PCP - General Family Medicine 09/15/23 Adali Johnson MD [address] [place] [phone] Consulting Physician Oncology 01/18/24 documented as of this encounter
--- OUTSIDE RECORDS SUMMARY | 2024-09-04 19:01 | XMS_ITS | Continuity of Care Document ---
Author Name [facility] Address [address] [place] [address] Organization [facility] Care Team Providers Care Roulette Dealer Name Role Phone [facility] Unavailable Unavailable Problems Problem Status Onset [...] Comments Source ibuprofen Assertion Drug allergy Active [facility] sulfa drugs Assertion Drug allergy [facility]
--- OUTSIDE RECORDS SUMMARY | 2024-09-04 19:01 | XMS_ITS | Encounter Summary ---
Author Organization [facility] Address [address] [address] Care Team Providers Care Engineer First Assistant Name Role Phone Kristian Granda MD Primary Care Provider [phone] Encounter Details Date Type Department Care Team (Late st Contact Info) Description 02/11/2024 Telephone [facility] - Centralized Scheduling [address] [place] [address] Samm Barrow MD [address] [facility] PULMONARY MED [address] [place] [phone] Social History Tobacco Use Types Packs/Day Years Used Date Smoking Tobacco: Every Day Cigarettes Smokeless Tobacco: Never Alcohol Use Standard Drinks/Week Comments Yes 30 [...] and heating? Not hard at all 01/28/2024 [facility] [place] [facility] Occupat ional Health - Occupational Stress [...] place to sleep or slept in a custodial (including now)? No 01/28/2024 Sex and Gender Information Value Date Recorded Sex Assigned at Not on file Gender Identity Not on file Sexual Orientation Not on file documented as of this encounter Functional Status Functional Status Response Date of [...] person have difficulty concentrating/remembering/making decisions? No 01/28/2024 documented as of this encounter Plan of Treatment Upcoming Encounters Date Type Department Care Team (Late st Contact Info) Description 09/13/2024 8:30 AM MANAGER IT SECURITY Appointment [facility] EEG/EMG [address] [place] [phone] Justina Beltre, CORPSMAN-BOTTOM CRANE OPERATOR [address] [place] [phone] 11/30/2024 2:00 PM CDT Office Visit [facility] - Pulmonology [address] [place] [address], [place] [address] Samm Barrow MD [address] [place] [address] PULMONARY MED [address] [place] [phone] documented as of this encounter Visit Diagnoses Not on filedocumented in this encounter Care Teams Engineer First Assistant Relationship Specialty Start Date End Date Kristian Granda MD PCP - General 08/24/18 documented as of this encounter
[2024-09-04 19:09] LABS: Platelet Estimate Decreased (Adequate); Schistocytes None Seen
[2024-09-04 19:10] LABS: Anisocytosis 3+; Hypochromasia 2+
[2024-09-04 20:00] VITALS: BP 97/70; PULSE 115; RESP 17; O2SAT 99
[2024-09-04 20:04] LABS: Influenza A QL RT-PCR Negative (Negative); Influenza B QL RT-PCR Negative (Negative); RSV RNA, RT-PCR Negative (Negative); SARS-CoV-2 RNA PCR Negative (Negative)
[2024-09-04 20:12] LABS: Bilirubin,Total 0.5 mg/dL (0.2-1.3); Lactate Dehydrogenase 236 U/L (120-246)
[2024-09-04 20:19] LABS: Transferrin 289 mg/dL (206-381)
[2024-09-04 20:22] LABS: Immature Reticulocyte Fraction 41.4 % (3.0-15.9); Reticulocyte Hemoglobin Conten 20.6 pg (28.2-36.6); Reticulocyte Percent 6.11 % (0.7-4.3)
[2024-09-04 21:19] LABS: Folic Acid 18.1 ng/mL (2.76->20)
[2024-09-04] MEDS: PANTOPRAZOLE SODIUM IV 40 MG VIAL IV PUSH (21:30)
[2024-09-04 21:34] LABS: Iron 21 ug/dL (37-170)
[2024-09-04 21:43] LABS: Percent Iron Saturation 6 % (20-50)
[2024-09-04] MEDS: CYANOCOBALAMIN INJ 1,000 MCG/ML VIAL 1000 MCG IM (22:35)
[2024-09-04 23:51] VITALS: BP 112/46; PULSE 108; RESP 20; O2SAT 94
[2024-09-05] VITALS (28 sets, daily range): BP systolic 87–140; BP diastolic 52–93; PULSE 76–116; RESP 11–101; TEMP 36.6–36.8; O2SAT 92–101; BMI 27.8
--- NOTE | 2024-09-05 00:27 | PC.NURSE ---
This patient, Radha Mendoza, was admitted to IMU status, and placed in Intensive Care Unit-10. Patient/family oriented to hospital policies and general routines including ID bracelet, bed and alarms, visiting hours, pain management, procedures, bathroom and other care routines, personal items, smoking policy, room service/diet, and visiting hours. Valuables list has been completed. Information on how to activate the Rapid Response Team has been discussed. Patient/Family are encouraged to report perceived risks to care and to ask questions if they do not understand what they are told or what they should do.
--- NOTE | 2024-09-05 03:21 | PM.IMHP ---
H&P: HPI History of Present Illness Date/Time: 09/05/24 02:00 Chief Complaint: Low hemoglobin Narrative: Pleasant 49-year-old female with a past medical history of alcohol abuse in recovery with resultant alcoholic cirrhosis, COPD with recent tobacco cessation, chronic back pain and daily marijuana use who presented to the ER via private vehicle due to low hemoglobin. The patient reports that she had followed up with her primary care physician 7 days ago in reported not feeling well. She was having palpitations, fatigue and intermittent lightheadedness with standing. She is also having increased shortness of breath with exertion and discomfort in her upper abdomen radiating from her chest through to her back. She reports that she had outpatient labs drawn at that time but never did get the results. She has subsequently had a follow-up appointment with her double head machine operator Dr. Aceves 5 days ago and he had outpatient labs ordered. She states that she did not feel well that day and did not get her labs drawn to until a couple days later. She I called to come to the ER because her hemoglobin was 4.9. She has noted foul-smelling black tarry stools for the last 4-5 days. She reported that she gained a lot of weight when she quit smoking in April. However, over the last several she has had increasing abdominal distension. She reports her abdomen feels tight and pruritic. She has had chronic lower extremity of her right lower extremity since she had a hip fracture in January. But she has noticed increased lower extremity swelling for the last 6-8 weeks. She denies any chest pain but has been having some palpitations. She is having lightheadedness to the point that she feels like she is going to pass out. She has also been having increased cramping in her posterior thighs and in her back. Subsequently she has been taking prescription ibuprofen 600 mg. She states that she does not want to get ?immune? to the ibuprofen so she has only been taking between 1-3 doses of ibuprofen a day. She has been having some nausea but denies any vomiting. She has not had any fevers or chills. She states that she quit drinking after she had a fall in January resulting in a hip fracture. She required 1 unit of blood transfusion. She otherwise had never had any history of known anemia for prior GI bleed. She has never had an EGD or colonoscopy. The patient had a reportedly normal appearing liver on imaging in February [address] demonstrated hepatic steatosis and then in January of 2024 CT demonstrated cirrhosis with portal hypertension. The patient reports that she is intermittently drink heavily on and off throughout her life. She would often drink heavily for year to in then would stop for several years. She reports that the last time she started drinking again she went off the rails and was drinking to excess. She used to drink 6 tall boys a day. She quit drinking altogether in January after her diagnosis of cirrhosis. She reports clouding of her memory at times and and forgets where she is in conversation but this has not changed much from her baseline. Review of Systems Review of Systems: 12 systems were reviewed with pertinent positives and negatives per HPI. Except as documented in the HPI, all other systems were reviewed and are negative. [facility] Past Medical History Medical History (Updated 09/05/24 @ 08:44 by Evelyn Welsh DO) Chronic hyponatremia Alcohol use disorder, severe, in sustained remission, dependence Marijuana use Asthma Chronic back pain Nicotine abuse In remission since 04/2024 previously smoked 1.5 packs of cigarettes per day since she was a teenager Chronic GERD Hypertension She reports that she has been actually having low blood pressures since April 2024 and is no longer on antihypertensives. History of Clostridioides difficile colitis COPD (chronic obstructive pulmonary disease) Surgical History Surgical History (Updated 09/05/24 @ 03:51 by Evelyn Welsh DO) Status post open reduction with internal fixation of fracture January 2024 intratrochanteric pending performed at [facility] at which time the patient left AMA H/O dilation and curettage Family History Family History Father Diabetes mellitus Mother Diabetes mellitus Social History Social History (Updated 09/05/24 @ 03:55 by Evelyn Welsh DO) Social History: The patient lives with her significant other. They been together for 11 years. Her mother and father live next door to her. She smokes marijuana daily. She has been unemployed since summer. She used to drink 6 24 oz cans a day. She quit drinking alcohol January 2024. She is currently an every day smoker, 1.5pack per day for 37 years but quit smoking April 2024. She has 1 daughter Code status: Full code. Smoking packs per day: 1.5 Smoking cigarettes per day: 30.0 Years smoked: 37 Smoking pack-years: 55.50 Smoking status: Former smoker Tobacco type: cigarettes Second hand tobacco smoke exposure: No Alcohol intake: former Drinks per week: 42 Alcohol use details: Quit January 2024 Substance use: current Substance use type: marijuana Other substance usage details: 2 joints Last use: 09/04/24 Do You Feel Safe in your Home?: Yes Lack of Transportation: No Lack of Food: Never True Current Housing: I Have Housing Concerned About Future Housing: No Difficulty Paying Gas/Electric Bills: No Difficulty Paying for Meds: No Currently Unemployed: No Education: Trade/Vocational Certificate Difficulty w/ Childcare or Family Care: No Spiritual care concerns: No Meds Home Medications and Allergies Home Medications ?Medication ?Instructions ?Recorded ?Confirmed ?Type albuterol sulfate 90 mcg/actuation 1 inh inhalation QID PRN shortness 02/18/23 09/05/24 Rx aerosol inhaler of breath or wheezing 1 month #8.5 grams amitriptyline 25 mg tablet 25 mg PO PRN PRN Sleep 08/30/23 09/05/24 History cyclobenzaprine 10 mg tablet 10 mg PO PRN PRN back spasms 08/30/23 09/05/24 History ibuprofen 600 mg tablet 600 mg PO DAILY PRN Pain 08/30/23 09/05/24 History multivitamin 1 tablet PO DAILY 09/05/24 09/05/24 History Allergies Allergy/AdvReac Type Severity Reaction Status Date / Time adhesive tape AdvReac Other Verified 09/04/24 15:54 Sulfa (Sulfonamide AdvReac Headache Verified 09/04/24 15:54 Antibiotics) Vital Signs Vital Signs - 24 hr 09/04/24 15:49 09/04/24 20:00 09/04/24 23:51 Temperature 98 F Pulse Rate 116 H 115 H 108 H Respiratory Rate 15 17 20 Blood Pressure 111/53 L 97/70 L 112/46 L Pulse Oximetry 98 99 94 Oxygen Delivery Room Air 09/05/24 02:00 Temperature Pulse Rate 115 H Respiratory Rate Blood Pressure Pulse Oximetry Oxygen Delivery H&P: Results Labs Labs: Short CBC 09/04/24 Range/Units 16:31 WBC 7.7 (4.5-10.0) K/mm3 Hgb 4.3 L* D (12.0-15.0) g/dL Hct 15.7 L* (37.0-47.0) % Plt Count 79 L (150-375) k/mm3 BMP 09/04/24 16:31 Sodium 134 L Potassium 3.5 Chloride 101 Carbon Dioxide 26 BUN 7 D Creatinine 0.67 L Glucose 129 H Calcium 8.1 L Cardiac Enzymes 09/04/24 Range/Units 16:31 Troponin I < 0.012 (0.000-0.034) ng/mL Liver Function 09/04/24 09/04/24 Range/Units 16:31 16:31 Total Bilirubin 0.5 0.5 (0.2-1.3) mg/dL Direct Bilirubin 0.0 (0-0.3) mg/dL AST 35 (14-36) U/L ALT 16 (6-35) U/L Alkaline Phosphatase 117 (38-126) U/L Albumin 3.0 L (3.5-5.1) g/dL Assessment and Plan Assessment and plan (1) Symptomatic anemia: Code(s): D64.9 - Anemia, unspecified Status: Acute (2) Upper GI bleed: Code(s): K92.2 - Gastrointestinal hemorrhage, unspecified Status: Acute (3) B12 deficiency anemia: Qualifiers: Vitamin B12 deficiency anemia type: unspecified B12 deficiency Qualified Code(s): D51.9 - Vitamin B12 deficiency anemia, unspecified Code(s): D51.9 - Vitamin B12 deficiency anemia, unspecified Status: Acute (4) Iron deficiency anemia: Qualifiers: Iron deficiency anemia type: chronic blood loss Qualified Code(s): D50.0 - Iron deficiency anemia secondary to blood loss (chronic) Code(s): D50.9 - Iron deficiency anemia, unspecified Status: Acute (5) Alcoholic cirrhosis of liver with ascites: Code(s): K70.31 - Alcoholic cirrhosis of liver with ascites Status: Acute (6) Thrombocytopenia: Code(s): D69.6 - Thrombocytopenia, unspecified Status: Acute Assessment and Plan: Due to cirrhosis (7) Portal hypertension: Code(s): K76.6 - Portal hypertension Status: Acute (8) Chronic GERD: Code(s): K21.9 - Gastro-esophageal reflux disease without esophagitis Status: Acute Plan Patient has symptomatic anemia due due to likely upper GI bleed. She may have some ulcer disease verses bleeding from some esophageal varices. Ulcer disease seems more likely given the patient's recent use of ibuprofen. Patient is NPO until evaluated by GI. Unfortunately patient has antibodies and is making cross and match difficult. 3 units of blood has been ordered. Patient has not had any further overt melena since admission. But she did have melena on rectal exam in the ER. Patient been placed on Protonix IV b.i.d.. Anemia labs did demonstrate ferritin of 25 total iron binding capacity less than 20. New recommendations suggest transfusing IV iron supplements when ferritin below 30 and when total iron binding capacity below 20. Thus Venofer has been ordered. B12 supplementation as are so been ordered will avoid anti-platelet medications/NSAID therapy. Gastroenterology has been consulted. Patient does have history of alcoholic cirrhosis and it seems that she has had a recent decompensation in her cirrhosis and has developed ascites. Patient will likely benefit from spironolactone and or Lasix therapy. Given her mention of clouded sensorium and difficulty with losing her train of thought will check ammonia level with next set of labs. However I do not plan a draw the patient's labs again until after she has received her blood transfusions. As I do not know when the patient will receive her blood due to difficulty with cross matching labs have not yet been ordered. Patient has been congratulated on her efforts in both quitting smoking and stopping alcohol use. The patient's blood pressures are low but maps are ranging between 60 and 65 for the most part. It sounds like she transition from being hypertensive to being hypotensive back in approximately April. Her home antihypertensives were stopped at that time. He is likely hypotensive due to her cirrhosis. Will monitor strict I&O's. Her hypotension is likely exacerbated by her acute on chronic anemia. If hypotension worsens will consider albumin supplementation. Quality VTE Prophylaxis VTE prophylaxis: mechanical ordered (SCDs) Hospitalist MIPS Advance Care Plan I have confirmed that the patient's Advanced Care Plan is present, code status is documented, or surrogate decision maker is listed in patient medical record.: Yes Medication Reconciliation I have utilized all available resources to obtain, update and review the patients current medications (includes all prescriptions, OTC, herbals, cannabis, and nutritional supplements).: Yes
[2024-09-05] MEDS: IRON SUCROSE COMPLEX 400 MG, IRON SUCROSE COMPLEX 100 MG in SODIUM CHLORIDE 0.9% IV 250 ML 78.57 MG IVPB (04:14)
[2024-09-05 07:03] LABS: Free T4 Free Thyroxine Reflex 1.09 ng/dL (0.78-2.19)
[2024-09-05 07:45] LABS: Total Triiodothyronine (T3) 1.85 NG/ML (0.97-1.69)
[2024-09-05] MEDS: LIDOCAINE 1% PF INJ 5 ML VIAL INFILTRATE (07:55)
[2024-09-05] MEDS: PANTOPRAZOLE SODIUM IV 40 MG VIAL IV PUSH ×2 (09:04→20:39)
--- NOTE | 2024-09-05 09:56 | WPDGICN ---
Assessment and Plan Assessment and plan (1) Cirrhosis of liver: Code(s): K74.60 - Unspecified cirrhosis of liver Status: Acute Assessment and Plan: The patient has severe anemia is most likely due to her constant NSAID ingestion. We will wait for her hematocrit to be above 7 to attempt an EGD, which will be tomorrow. Her CT scan findings show significant portal hypertension and ascites, therefore she is unlikely to have gastroesophageal varices. Her MELD 3.0 is only 12 points, but I believe she is still a good candidate for liver transplantation due to the presence of ascites. Once stabilized from the GI bleeding standpoint, we'll get an opinion from [facility] Liver transplant team. (2) Anemia: Code(s): D64.9 - Anemia, unspecified Status: Acute GI Consult Note Consult date/time: 09/05/24 09:56 HPI: Radha Mendoza, a 49-year-old female with a significant history of alcohol and tobacco use, was diagnosed with liver cirrhosis via CT imaging in January 2024. She reports abstaining from alcohol since that diagnosis. Her PCP identified severe anemia, prompting an ER visit where her hemoglobin was found to be 4.3 g/dL. Notably, she reports regular ibuprofen use, up to three times daily. Over the past two weeks, she has experienced intermittent melena (black, tarry stools) and extreme weakness. She has no history of esophagogastroduodenoscopy (EGD) or colonoscopy. She is currently being transfused 3 PRBC in the ICU. She denies continuous medication with diuretics or beta blockers. There is no marked increased in abdominal girth or LE edema. She had a Right hip fracture last year requiring surgery and receiving blood transfusion. Review of Systems Review of Systems: All systems reviewed & are unremarkable except as noted in HPI and below PMFSH Past Medical History Medical History (Updated 09/05/24 @ 10:03 by Toribio Smith MD) Anemia Chronic hyponatremia Alcohol use disorder, severe, in sustained remission, dependence Marijuana use Asthma Chronic back pain Nicotine abuse In remission since 04/2024 previously smoked 1.5 packs of cigarettes per day since she was a teenager Chronic GERD Hypertension She reports that she has been actually having low blood pressures since April 2024 and is no longer on antihypertensives. History of Clostridioides difficile colitis COPD (chronic obstructive pulmonary disease) Surgical History Surgical History (Updated 09/05/24 @ 03:51 by Evelyn Welsh DO) Status post open reduction with internal fixation of fracture January 2024 intratrochanteric pending performed at [facility] at which time the patient left AMA H/O dilation and curettage Family History Family History Father Diabetes mellitus Mother Diabetes mellitus Social History Social History (Updated 09/05/24 @ 03:55 by Evelyn Welsh DO) Social History: The patient lives with her significant other. They been together for 11 years. Her mother and father live next door to her. She smokes marijuana daily. She has been unemployed since summer. She used to drink 6 24 oz cans a day. She quit drinking alcohol January 2024. She is currently an every day smoker, 1.5pack per day for 37 years but quit smoking April 2024. She has 1 daughter Code status: Full code. Smoking packs per day: 1.5 Smoking cigarettes per day: 30.0 Years smoked: 37 Smoking pack-years: 55.50 Smoking status: Former smoker Tobacco type: cigarettes Second hand tobacco smoke exposure: No Alcohol intake: former Drinks per week: 42 Alcohol use details: Quit January 2024 Substance use: current Substance use type: marijuana Other substance usage details: 2 joints Last use: 09/04/24 Do You Feel Safe in your Home?: Yes Lack of Transportation: No Lack of Food: Never True Current Housing: I Have Housing Concerned About Future Housing: No Difficulty Paying Gas/Electric Bills: No Difficulty Paying for Meds: No Currently Unemployed: No Education: Trade/Vocational Certificate Difficulty w/ Childcare or Family Care: No Spiritual care concerns: No Meds Home Medications and Allergies Home Medications ?Medication ?Instructions ?Recorded ?Confirmed ?Type albuterol sulfate 90 mcg/actuation 1 inh inhalation QID PRN shortness 02/18/23 09/05/24 Rx aerosol inhaler of breath or wheezing 1 month #8.5 grams amitriptyline 25 mg tablet 25 mg PO PRN PRN Sleep 08/30/23 09/05/24 History cyclobenzaprine 10 mg tablet 10 mg PO PRN PRN back spasms 08/30/23 09/05/24 History ibuprofen 600 mg tablet 600 mg PO DAILY PRN Pain 08/30/23 09/05/24 History multivitamin 1 tablet PO DAILY 09/05/24 09/05/24 History Allergies Allergy/AdvReac Type Severity Reaction Status Date / Time adhesive tape AdvReac Other Verified 09/04/24 15:54 Sulfa (Sulfonamide AdvReac Headache Verified 09/04/24 15:54 Antibiotics) Vital Signs Vital Signs - 24 hr 09/04/24 15:49 09/04/24 20:00 09/04/24 23:51 Temperature 98 F Pulse Rate 116 H 115 H 108 H Respiratory Rate 15 17 20 Blood Pressure 111/53 L 97/70 L 112/46 L Pulse Oximetry 98 99 94 Oxygen Delivery Room Air 09/05/24 02:00 09/05/24 04:00 09/05/24 04:00 Temperature 98 F Pulse Rate 115 H 116 H 110 H Respiratory Rate 14 Blood Pressure 100/53 L Pulse Oximetry 95 Oxygen Delivery 09/05/24 06:00 09/05/24 07:30 09/05/24 08:26 Temperature 98.1 F Pulse Rate 76 110 H 103 H Respiratory Rate 25 H 14 Blood Pressure 87/52 L 112/75 Pulse Oximetry 94 93 Oxygen Delivery 09/05/24 09:30 09/05/24 09:40 Temperature 98 F 98.1 F Pulse Rate 102 H 104 H Respiratory Rate 11 L 14 Blood Pressure 123/87 112/71 Pulse Oximetry 97 95 Oxygen Delivery Exam Narrative: Chronically ill, alert and oriented x3. No jaundice. Lungs and chest: Clear. Abdomen: Somewhat distended, nontender, fluid wave negative. Extremities: No edema. Neurologically intact. Results Labs 09/04/24 16:31 09/04/24 16:31 Labs: Short CBC 09/04/24 Range/Units 16:31 WBC 7.7 (4.5-10.0) K/mm3 Hgb 4.3 L* D (12.0-15.0) g/dL Hct 15.7 L* (37.0-47.0) % Plt Count 79 L (150-375) k/mm3 BMP 09/04/24 16:31 Sodium 134 L Potassium 3.5 Chloride 101 Carbon Dioxide 26 BUN 7 D Creatinine 0.67 L Glucose 129 H Calcium 8.1 L Cardiac Enzymes 09/04/24 Range/Units 16:31 Troponin I < 0.012 (0.000-0.034) ng/mL Liver Function 09/04/24 09/04/24 Range/Units 16:31 16:31 Total Bilirubin 0.5 0.5 (0.2-1.3) mg/dL Direct Bilirubin 0.0 (0-0.3) mg/dL AST 35 (14-36) U/L ALT 16 (6-35) U/L Alkaline Phosphatase 117 (38-126) U/L Albumin 3.0 L (3.5-5.1) g/dL
--- NOTE | 2024-09-05 10:18 | PM.IMPN ---
Progress Note: A&P Assessment and Plan (1) Symptomatic anemia: Code(s): D64.9 - Anemia, unspecified Status: Acute Assessment and Plan: Multifactorial anemia secondary to iron and B12 deficiency. Patient also has upper GI bleed Receiving iron and B12 mentation Transfuse 3 units PRBC Management of GI bleed as below Monitor hemoglobin and transfuse additional PRBC as needed (2) Upper GI bleed: Code(s): K92.2 - Gastrointestinal hemorrhage, unspecified Status: Acute Assessment and Plan: Patient appears to have GI bleed it could be either peptic ulcer disease secondary to NSAID use or varices Patient has been seen by GI and plan for EGD tomorrow Clear liquid diet now and NPO after midnight PPI IV q.12 hours and octreotide infusion Rocephin for SBP prophylaxis (3) B12 deficiency anemia: Qualifiers: Vitamin B12 deficiency anemia type: unspecified B12 deficiency Qualified Code(s): D51.9 - Vitamin B12 deficiency anemia, unspecified Code(s): D51.9 - Vitamin B12 deficiency anemia, unspecified Status: Acute Assessment and Plan: Patient C vitamin B12 injection IM (4) Iron deficiency anemia: Qualifiers: Iron deficiency anemia type: chronic blood loss Qualified Code(s): D50.0 - Iron deficiency anemia secondary to blood loss (chronic) Code(s): D50.9 - Iron deficiency anemia, unspecified Status: Acute Assessment and Plan: Patient received iron supplementation (5) Alcoholic cirrhosis of liver with ascites: Code(s): K70.31 - Alcoholic cirrhosis of liver with ascites Status: Acute Assessment and Plan: Patient was diagnosed with cirrhosis last year Coags reviewed (6) Thrombocytopenia: Code(s): D69.6 - Thrombocytopenia, unspecified Status: Acute Assessment and Plan: Due to cirrhosis Monitor this time (7) Portal hypertension: Code(s): K76.6 - Portal hypertension Status: Acute Assessment and Plan: EGD pending (8) Chronic GERD: Code(s): K21.9 - Gastro-esophageal reflux disease without esophagitis Status: Acute Assessment and Plan: PPI (9) Ascites: Code(s): R18.8 - Other ascites Status: Acute Assessment and Plan: CT scan showed moderate ascites Patient has distended abdomen on exam Once patient has EGD and hemodynamics stabilized will proceed to paracentesis after consultation with GI prior to discharge Plan DVT prophylaxis -SCD Stress ulcer prophylaxis -PPI Nutrition -clear liquid diet, NPO after midnight Code Status - Full Code Subjective Date/time seen: 09/05/24 She states he feels better this morning and denies any specific complaint. She does have intermittent abdominal pain in epigastric area. She states the pain comes and goes and rates it at 8/10. Pain radiates to her back. She denies any nausea vomiting at this time. No bowel movements since coming to ICU She has 3 units PRBC ordered but they have not been transfuse as as patient had antibodies and took time to obtain blood. First unit is going to be started right now All other systems were reviewed and were negative Review of Systems Review of Systems: All systems reviewed & are unremarkable except as noted in HPI and below (HPI) Exam Narrative: General: Pt is alert awake and in NAD Lungs/Chest: Trachea central Clear BS B/L, No crackles or wheezing. Cardiac: RRR. Normal S1 S2. No murmurs Circulation: Pedal pulses are intact and symmetrical. Abdomen: Normal bowel sounds.. Soft distended, mild tenderness to palpation in epigastric area, shifting dullness present Extremities: No clubbing, cyanosis or edema. Warm : William in place Neurologic: Follows commands. Moves all 4 extremities PERRL AO x3 Skin: No Rash Objective Data Vital Signs Vital Signs: Vital Signs - 24 hr 09/04/24 15:49 09/04/24 20:00 09/04/24 23:51 Temperature 36.6 C Pulse Rate 116 H 115 H 108 H Respiratory Rate 15 17 20 Blood Pressure 111/53 L 97/70 L 112/46 L Pulse Oximetry 98 99 94 Oxygen Delivery Room Air 09/05/24 02:00 09/05/24 04:00 09/05/24 04:00 Temperature 36.6 C Pulse Rate 115 H 116 H 110 H Respiratory Rate 14 Blood Pressure 100/53 L Pulse Oximetry 95 Oxygen Delivery 09/05/24 06:00 09/05/24 07:30 09/05/24 08:26 Temperature 36.7 C Pulse Rate 76 110 H 103 H Respiratory Rate 25 H 14 Blood Pressure 87/52 L 112/75 Pulse Oximetry 94 93 Oxygen Delivery 09/05/24 09:30 09/05/24 09:40 Temperature 36.6 C 36.7 C Pulse Rate 102 H 104 H Respiratory Rate 11 L 14 Blood Pressure 123/87 112/71 Pulse Oximetry 97 95 Oxygen Delivery Intake/Output Intake/Output: Intake & Output 09/02/24 09/03/24 09/04/24 09/05/24 23:59 23:59 23:59 23:59 Intake Total 120 Output Total 600 Balance -480 Meds/Results Medications: Active Medications Generic Name Dose Route Start Last Admin Trade Name Freq PRN Reason Stop Dose Admin Amitriptyline HCl 25 mg 09/05/24 03:22 Amitriptyline Hcl 25 Mg Tablet PO HS PRN Sleep Cyclobenzaprine HCl 10 mg 09/05/24 03:22 Cyclobenzaprine Hcl 10 Mg Tablet PO PRN PRN back spasms Ceftriaxone Sodium 1 gm in 50 mls @ 100 mls/hr 09/05/24 09:00 Rocephin 1 Gm/Ns 50 Ml IVPB Q24H ARACELI Octreotide Acetate 500 mcg/ 100 mls @ 10 mls/hr 09/05/24 09:30 Sodium Chloride IV CONT .Q10H ARACELI 50 MCG/HR Ondansetron HCl 4 mg 09/05/24 09:10 Ondansetron Inj 4 Mg/2 Ml Vial IV PUSH Q4H PRN Nausea And Vomiting Pantoprazole Sodium 40 mg 09/05/24 21:00 Pantoprazole Sodium Iv 40 Mg Vial IV PUSH Q12HR [facility] Sodium Chloride 20 ml 09/05/24 08:33 Central Line Flush IV PUSH PRN PRN after blood draws Sodium Chloride 10 ml 09/05/24 08:33 Central Line Flush IV PUSH PRN PRN with TPN bag changes Sodium Chloride 10 ml 09/05/24 14:00 Central Line Flush IV PUSH Q8HR [facility] Radiology Results: ITS Impressions Chest X-Ray 09/04/24 16:28 IMPRESSION: No acute cardiopulmonary process. Abdomen/Pelvis CT 09/04/24 20:32 IMPRESSION: Cirrhosis with portal hypertension. Moderate ascites. Labs Labs: Laboratory Results - last 24 hr 09/04/24 09/04/24 09/04/24 16:31 16:31 19:22 WBC 7.7 RBC 1.82 L Hgb 4.3 L* D Hct 15.7 L* MCV 86.3 MCH 23.6 L MCHC 27.4 L RDW 23.1 H Plt Count 79 L MPV 11.9 H Immature Gran % (Auto) 0.7 H Neut % (Auto) 54.6 Lymph % (Auto) 28.6 [place] % (Auto) 12.0 H Eos % (Auto) 3.7 Baso % (Auto) 0.4 Lymph # (Auto) 2.19 [place] # (Auto) 0.9 H Eos # (Auto) 0.3 Baso # (Auto) 0.0 Abs Immat Gran (auto) 0.05 H Absolute Neuts (auto) 4.2 Absolute Nucleated RBC 0.050 H Nucleated RBC % 0.7 H Platelet Estimate Decreased Hypochromasia 2+ Anisocytosis 3+ Schistocytes None seen Absolute Retic Percent Retic Immature Retic Fraction Retic Hgb Content PT 15.0 H INR 1.1 APTT 38.9 H Sodium 134 L Potassium 3.5 Chloride 101 Carbon Dioxide 26 Anion Gap 7 BUN 7 D Creatinine 0.67 L Estim Creat Clear Calc 78 Estimated GFR > 60 Glucose 129 H Calcium 8.1 L Iron TIBC % Saturation Transferrin 289 Ferritin Total Bilirubin 0.5 0.5 Direct Bilirubin 0.0 AST 35 ALT 16 Alkaline Phosphatase 117 Lactate Dehydrogenase 236 Troponin I < 0.012 NT-Pro-B Natriuret Pep 169 H Total Protein 7.0 Albumin 3.0 L Lipase 94 Vitamin B12 230.0 L Folate 18.1 TSH (Reflex) Free T4 Total T3 Influenza A (RT-PCR) Negative Influenza B (RT-PCR) Negative RSV (RT-PCR) Negative SARS-CoV-2 RNA (RT-PCR) Negative Blood Type A Positive Antibody Screen Positive Antibody Identification Cold Auto AB Antigen Identification Cancelled GREGORIA, IgG Interpret Positive GREGORIA, Poly Interpret TNP GREGORIA, Complement Interp Positive Indirect Antiglob Test Crossmatch See Detail Enhanced Crossmatch See Detail 09/04/24 19:55 WBC RBC Hgb Hct MCV MCH MCHC RDW Plt Count MPV Immature Gran % (Auto) Neut % (Auto) Lymph % (Auto) [place] % (Auto) Eos % (Auto) Baso % (Auto) Lymph # (Auto) [place] # (Auto) Eos # (Auto) Baso # (Auto) Abs Immat Gran (auto) Absolute Neuts (auto) Absolute Nucleated RBC Nucleated RBC % Platelet Estimate Hypochromasia Anisocytosis Schistocytes Absolute Retic 0.10 Percent Retic 6.11 H Immature Retic Fraction 41.4 H Retic Hgb Content 20.6 L PT INR APTT Sodium Potassium Chloride Carbon Dioxide Anion Gap BUN Creatinine Estim Creat Clear Calc Estimated GFR Glucose Calcium Iron 21 L TIBC 366 % Saturation 6 L Transferrin Ferritin 25.10 Total Bilirubin Direct Bilirubin AST ALT Alkaline Phosphatase Lactate Dehydrogenase Troponin I NT-Pro-B Natriuret Pep Total Protein Albumin Lipase Vitamin B12 Folate TSH (Reflex) 4.890 H Free T4 1.09 Total T3 1.85 H Influenza A (RT-PCR) Influenza B (RT-PCR) RSV (RT-PCR) SARS-CoV-2 RNA (RT-PCR) Blood Type Antibody Screen Antibody Identification Cancelled Antigen Identification Cancelled GREGORIA, IgG Interpret 1+ GREGORIA, Poly Interpret TNP GREGORIA, Complement Interp Positive Indirect Antiglob Test Positive Crossmatch Enhanced Crossmatch
[2024-09-05] MEDS: OCTREOTIDE ACETATE 50 MCG/ML VIAL IV PUSH (10:31)
[2024-09-05] MEDS: OCTREOTIDE ACETATE 500 MCG in SODIUM CHLORIDE 0.9% IV 99 ML 10 MCG IV CONT ×2 (10:32→19:31)
[2024-09-05] MEDS: SODIUM CHLORIDE 0.9% IV 250 ML 30 ML IV CONT (12:17)
[2024-09-05] MEDS: ONDANSETRON INJ 4 MG/2 ML VIAL IV PUSH (13:29)
[2024-09-05] MEDS: CENTRAL LINE FLUSH 10 ML IV PUSH ×2 (13:31→20:39)
[2024-09-05 17:22] LABS: Hemoglobin 7.7 g/dL (12.0-15.0); Immature Platelet Fraction Pct 4.2 % (0.9-11.2); Mean Corpuscular Hemoglobin 37.6 pg (26-34); Mean Corpuscular Volume 91.7 fl (80-100); Mean Platelet Volume 10.2 fl (7.4-10.4); Platelet Count Result 130 k/mm3 (150-375); Red Blood Count 2.05 M/mm3 (4.2-5.4); White Blood Count 6.9 K/mm3 (4.5-10.0)
[2024-09-05 17:24] LABS: Hematocrit 18.8 % (37.0-47.0)
[2024-09-05] MEDS: MORPHINE SULFATE (*CRX) 2 MG/ML INJ IV PUSH (20:38)
[2024-09-05 23:20] LABS: Hematocrit 22.7 % (37.0-47.0); Hemoglobin 7.7 g/dL (12.0-15.0); Immature Platelet Fraction Pct 5.3 % (0.9-11.2); Mean Corpuscular HGB Conc 33.9 g/dl (32-36); Mean Corpuscular Hemoglobin 31.6 pg (26-34); Mean Platelet Volume 10.3 fl (7.4-10.4); Platelet Count Result 127 k/mm3 (150-375); Red Blood Count 2.44 M/mm3 (4.2-5.4); White Blood Count 7.6 K/mm3 (4.5-10.0)
[2024-09-05] MEDS: AMITRIPTYLINE HCL 25 MG TABLET PO (23:38)
[2024-09-06] VITALS (11 sets, daily range): BP systolic 85–127; BP diastolic 53–74; PULSE 15–408; RESP 12–20; TEMP 36.3–36.9; O2SAT 91–96
[2024-09-06 02:29] LABS: Haptoglobin 103 mg/dL (43-212)
[2024-09-06 03:24] LABS: Creatinine, Random Urine 102 mg/dL (20-275); Total Prot/Creat ratio mg/mg 0.108 (0.024-0.184); Total Protein/Creatinine Ratio 108 mg/g creat (24-184)
[2024-09-06 03:24] LABS: Protein, Total 6.3 g/dL (6.1-8.1)
[2024-09-06] MEDS: OCTREOTIDE ACETATE 500 MCG in SODIUM CHLORIDE 0.9% IV 99 ML 10 MCG IV CONT (05:51)
[2024-09-06] MEDS: CENTRAL LINE FLUSH 10 ML IV PUSH (05:51)
--- NOTE | 2024-09-06 06:31 | PC.NURSE ---
This patient, Radha Mendoza, was transferred to [facility] on 09/06/24 at 0625. Personal belongings sent with patient. Report given to ONELIA Head. Appropriate documentation sent with patient.
[2024-09-06 06:47] LABS: Hematocrit 23.6 % (37.0-47.0); Hemoglobin 7.6 g/dL (12.0-15.0); Mean Corpuscular HGB Conc 32.2 g/dl (32-36); Mean Corpuscular Hemoglobin 28.3 pg (26-34); Mean Corpuscular Volume 87.7 fl (80-100); Mean Platelet Volume 10.1 fl (7.4-10.4); Platelet Count Result 133 k/mm3 (150-375); Red Blood Count 2.69 M/mm3 (4.2-5.4); White Blood Count 7.5 K/mm3 (4.5-10.0)
--- NOTE | 2024-09-06 06:56 | PC.NURSE ---
Received from ICU 10 with belongings. Oriented to room/ unit routines.
[2024-09-06] MEDS: PANTOPRAZOLE SODIUM IV 40 MG VIAL IV PUSH (08:03)
[2024-09-06 09:59] LABS: Alanine Aminotransferase 20 U/L (6-35); Alkaline Phosphatase 121 U/L (38-126); Anion Gap 8 mmol/L (4-12); Aspartate Amino Transferase 48 U/L (14-36); Bilirubin,Total 0.9 mg/dL (0.2-1.3); Calcium 7.9 mg/dL (8.4-10.2); Carbon Dioxide 26 mmol/L (22-30); Chloride 105 mmol/L (98-107); Estimated CRCL calculation 101 ml/min; Estimated Glomerular Filt Rate > 60; Glucose 129 mg/dL (65-110); Potassium 3.4 mmol/L (3.4-5.0); Sodium 139 mmol/L (137-145)
[2024-09-06 10:11] LABS: Blood Urea Nitrogen < 2 mg/dL (7-17)
--- NOTE | 2024-09-06 10:21 | PC.NURSE ---
To GI Lab per [ stretcher]. Report given to [[facility] ].
[2024-09-06] MEDS: LACTATED RINGERS 1,000 ML 150 ML IV CONT (10:45)
--- NOTE | 2024-09-06 11:08 | P.PNAN_ITS ---
Anes - Initial Pre Proc Eval Procedure: Operation Date: 09/06/24 13:45 Proposed Procedures p Esophagogastroduodenoscopy - Toribio Smith MD Date/Time: 09/06/24 11:08 Surgeon: Evelyn Welsh DO Pre Op Diagnosis: Anemia Patient Data Age: 49 Gender: F Height: 1.57 m Weight: 69 kg Last Vital Signs Temp 97.3 F L 09/06/24 10:42 Pulse 95 09/06/24 10:42 Resp 18 09/06/24 10:42 BP 98/60 L 09/06/24 10:42 Pulse Ox 96 09/06/24 10:42 O2 Del Method Nasal Cannula 09/06/24 10:42 O2 Flow Rate 2 09/06/24 10:42 Allergies Allergy/AdvReac Type Severity Reaction Status Date / Time adhesive tape AdvReac Other Verified 09/06/24 10:38 Sulfa (Sulfonamide AdvReac Headache Verified 09/06/24 10:38 Antibiotics) Home Medications ?Medication ?Instructions ?Recorded ?Confirmed ?Type albuterol sulfate 90 mcg/actuation 1 inh inhalation QID PRN shortness 02/18/23 09/05/24 Rx aerosol inhaler of breath or wheezing 1 month #8.5 grams amitriptyline 25 mg tablet 25 mg PO PRN PRN Sleep 08/30/23 09/05/24 History cyclobenzaprine 10 mg tablet 10 mg PO PRN PRN back spasms 08/30/23 09/05/24 History ibuprofen 600 mg tablet 600 mg PO DAILY PRN Pain 08/30/23 09/05/24 History multivitamin 1 tablet PO DAILY 09/05/24 09/05/24 History Laboratory Tests 09/04/24 09/04/24 09/04/24 16:31 19:22 19:55 WBC RBC Hgb Hct MCV MCH MCHC RDW Plt Count MPV % Immature Plt Fraction Haptoglobin 103 mg/dL (43-212) Sodium Potassium Chloride Carbon Dioxide Anion Gap BUN Creatinine Estim Creat Clear Calc Estimated GFR Glucose Calcium Bijal Transferrin Receptr Pending Total Bilirubin AST ALT Alkaline Phosphatase Total Protein 6.3 g/dL (6.1-8.1) Albumin Ur Random Creatinine 102 mg/dL (20-275) U Random Total Protein 11 mg/dL (5-24) Protein/Creatinin Ratio 108 mg/g creat (24-184) Blood Type A Positive Antibody Screen Positive Antibody Identification Cold Auto AB Antigen Identification Cancelled GREGORIA, IgG Interpret Positive GREGORIA, Poly Interpret TNP GREGORIA, Complement Interp Positive Crossmatch See Detail Enhanced Crossmatch See Detail 09/05/24 09/05/24 09/06/24 17:12 22:08 05:50 WBC 6.9 K/mm3 7.6 K/mm3 7.5 K/mm3 (4.5-10.0) (4.5-10.0) (4.5-10.0) RBC 2.05 L M/mm3 2.44 L M/mm3 2.69 L M/mm3 (4.2-5.4) (4.2-5.4) (4.2-5.4) Hgb 7.7 L D g/dL 7.7 L g/dL 7.6 L g/dL (12.0-15.0) (12.0-15.0) (12.0-15.0) Hct 18.8 L* % 22.7 L % 23.6 L % (37.0-47.0) (37.0-47.0) (37.0-47.0) MCV 91.7 D fl 93.0 fl 87.7 D fl (80-100) (80-100) (80-100) MCH 37.6 H D pg 31.6 D pg 28.3 D pg (26-34) (26-34) (26-34) MCHC 41.0 H D g/dl 33.9 g/dl 32.2 g/dl (32-36) (32-36) (32-36) RDW 24.0 H % 25.0 H % 23.0 H % (11.5-14.5) (11.5-14.5) (11.5-14.5) Plt Count 130 L D k/mm3 127 L k/mm3 133 L k/mm3 (150-375) (150-375) (150-375) MPV 10.2 fl 10.3 fl 10.1 fl (7.4-10.4) (7.4-10.4) (7.4-10.4) % Immature Plt Fraction 4.2 % 5.3 % (0.9-11.2) (0.9-11.2) Haptoglobin Sodium Potassium Chloride Carbon Dioxide Anion Gap BUN Creatinine Estim Creat Clear Calc Estimated GFR Glucose Calcium Bijal Transferrin Receptr Total Bilirubin AST ALT Alkaline Phosphatase Total Protein Albumin Ur Random Creatinine U Random Total Protein Protein/Creatinin Ratio Blood Type Antibody Screen Antibody Identification Antigen Identification GREGORIA, IgG Interpret GREGORIA, Poly Interpret GREGORIA, Complement Interp Crossmatch Enhanced Crossmatch 09/06/24 09:34 WBC RBC Hgb Hct MCV MCH MCHC RDW Plt Count MPV % Immature Plt Fraction Haptoglobin Sodium 139 mmol/L (137-145) Potassium 3.4 mmol/L (3.4-5.0) Chloride 105 mmol/L (98-107) Carbon Dioxide 26 mmol/L (22-30) Anion Gap 8 mmol/L (4-12) BUN < 2 L mg/dL (7-17) Creatinine 0.50 L mg/dL (0.7-1.0) Estim Creat Clear Calc 101 ml/min Estimated GFR > 60 (59 - ) Glucose 129 H mg/dL (65-110) Calcium 7.9 L mg/dL (8.4-10.2) Bijal Transferrin Receptr Total Bilirubin 0.9 mg/dL (0.2-1.3) AST 48 H U/L (14-36) ALT 20 U/L (6-35) Alkaline Phosphatase 121 U/L (38-126) Total Protein 7.0 g/dL (6.3-8.2) Albumin 3.0 L g/dL (3.5-5.1) Ur Random Creatinine U Random Total Protein Protein/Creatinin Ratio Blood Type Antibody Screen Antibody Identification Antigen Identification GREGORIA, IgG Interpret GREGORIA, Poly Interpret GREGORIA, Complement Interp Crossmatch Enhanced Crossmatch Patient hx anesthesia problems: none Family hx anesthesia problems: none Results Review: All pre-operative results and documents have been reviewed as part of the pre- operative evaluation. [facility] Past Medical History Medical History Anemia Chronic hyponatremia Alcohol use disorder, severe, in sustained remission, dependence Marijuana use Asthma Chronic back pain Nicotine abuse In remission since 04/2024 previously smoked 1.5 packs of cigarettes per day since she was a teenager Chronic GERD Hypertension She reports that she has been actually having low blood pressures since April 2024 and is no longer on antihypertensives. History of Clostridioides difficile colitis COPD (chronic obstructive pulmonary disease) Surgical History Surgical History Status post open reduction with internal fixation of fracture January 2024 [address]atrochan[address] performed at [facility] at which time the patient left AMA H/O dilation and curettage Family History Family History Father Diabetes mellitus Mother Diabetes mellitus Social History Social History Social History: The patient lives with her significant other. They been together for 11 years. Her mother and father live next door to her. She smokes marijuana daily. She has been unemployed since summer. She used to drink 6 24 oz cans a day. She quit drinking alcohol January 2024. She is currently an every day smoker, 1.5pack per day for 37 years but quit smoking April 2024. She has 1 daughter Code status: Full code. Smoking packs per day: 1.5 Smoking cigarettes per day: 30.0 Years smoked: 37 Smoking pack-years: 55.50 Smoking status: Former smoker Tobacco type: cigarettes Second hand tobacco smoke exposure: No Alcohol intake: former Drinks per week: 42 Alcohol use details: Quit January 2024 Substance use: current Substance use type: marijuana Other substance usage details: 2 joints Last use: 09/04/24 Do You Feel Safe in your Home?: Yes Lack of Transportation: No Lack of Food: Never True Current Housing: I Have Housing Concerned About Future Housing: No Difficulty Paying Gas/Electric Bills: No Difficulty Paying for Meds: No Currently Unemployed: No Education: Trade/Vocational Certificate Difficulty w/ Childcare or Family Care: No Spiritual care concerns: No Anes - Eval Final PreProcedure Day of Procedure 09/06/24 11:08 Patient weight: overweight Lungs: normal air movement Airway: Mallampati scale and special considerations (Edentulous upper. ) Neurological: alert and oriented Last oral intake: >/= 8 hours ASA classification: IV Emergent: no Anesthetic plan: proceed Anesthesia type and monitoring: general GIVS and standard monitoring Results Review: All pre-operative results and documents have been reviewed as part of the pre-operative evaluation. Severe COPD/smoker, marijuana use daily, now w anemia and GI bleed, s/p transfusion 3 U PRBCs. Cirrhosis/ascites by hx. Informed Consent: The patient's anesthetic plan and its attendant risks and benefits were discussed with the patient/family/POA. Questions were solicited and answers provided to the satisfaction of the patient/family/POA.
[2024-09-06] MEDS: BENZOCAINE (*SP) 60 ML SPRAY CAN (HURRICAINE) 1 SPRAY MUCOUS MEM (11:16)
--- NOTE | 2024-09-06 11:34 | WPDGIPROGNO ---
Progress Note: A&P Assessment and Plan (1) Cirrhosis of liver: Code(s): K74.60 - Unspecified cirrhosis of liver Status: Acute (2) Anemia: Code(s): D64.9 - Anemia, unspecified Status: Acute Assessment and Plan: Pt with moderate portal hypertensive gastropathy which can be a a source of severe bleeding, in addition to her history of NSAIDS. Pt is currently stable and at no risk for impeding upper GI bleeding. She has a inside phone sales who can follow her as an outpatient. Her Hb will need to be followed closely and if it continues to drop will need a colonoscopy. Overall her prognosis is poor given her new onset ascites, and we discussed about the possiblity of a liver transplant at [facility], however she is still not sure about pursuing this. Plan - Pt can be discharged home - Follow up with her inside phone sales Dr Aceves Time Spent With Patient Time with patient: 15 - 25 minutes Subjective Date/time seen: 09/06/24 11:34 Interval history: Pt feels better, no episodes of melena. See EGD report from today. Exam Narrative: Abdomen soft, non tender, no distension. Rest of the exam unchanged. Objective Data Vital Signs Vital Signs: Vital Signs - 24 hr 09/05/24 11:38 09/05/24 12:00 09/05/24 12:00 Temperature 98.2 F Pulse Rate 97 97 97 Respiratory Rate 13 17 Blood Pressure 111/65 Pulse Oximetry 94 94 Oxygen Delivery Room Air Oxygen Flow Rate 09/05/24 12:27 09/05/24 12:38 09/05/24 13:31 Temperature 98.1 F 98.1 F 98.1 F Pulse Rate 92 99 Respiratory Rate 25 H 14 Blood Pressure 104/72 122/79 Pulse Oximetry 101 H 93 Oxygen Delivery Oxygen Flow Rate 09/05/24 13:44 09/05/24 14:00 09/05/24 14:01 Temperature 98.2 F 98 F Pulse Rate 98 99 100 Respiratory Rate 16 18 Blood Pressure 122/93 H 140/91 H Pulse Oximetry 95 96 Oxygen Delivery Oxygen Flow Rate 09/05/24 15:01 09/05/24 15:44 09/05/24 16:00 Temperature 98.3 F 98.1 F 98.1 F Pulse Rate 98 95 97 Respiratory Rate 16 16 14 Blood Pressure 140/91 H 117/83 117/83 Pulse Oximetry 95 94 94 Oxygen Delivery Oxygen Flow Rate 09/05/24 16:00 09/05/24 16:00 09/05/24 18:00 Temperature Pulse Rate 95 100 99 Respiratory Rate 17 Blood Pressure Pulse Oximetry 96 Oxygen Delivery Room Air Oxygen Flow Rate 09/05/24 19:45 09/05/24 20:00 09/05/24 20:00 Temperature 98.3 F Pulse Rate 102 H 102 H 104 H Respiratory Rate 14 13 Blood Pressure 126/82 Pulse Oximetry 93 93 Oxygen Delivery Room Air Oxygen Flow Rate 09/05/24 22:00 09/06/24 00:00 09/06/24 00:00 Temperature 98.3 F Pulse Rate 102 H 15 L 105 H Respiratory Rate 19 19 Blood Pressure 127/73 Pulse Oximetry 92 93 Oxygen Delivery Room Air Oxygen Flow Rate 09/06/24 00:00 09/06/24 02:00 09/06/24 04:00 Temperature Pulse Rate 408 H 101 H 102 H Respiratory Rate 12 Blood Pressure Pulse Oximetry 91 Oxygen Delivery Nasal Cannula Oxygen Flow Rate 2 09/06/24 04:00 09/06/24 04:00 09/06/24 06:00 Temperature 98.4 F Pulse Rate 105 H 102 H 104 H Respiratory Rate 12 Blood Pressure 122/74 Pulse Oximetry 91 Oxygen Delivery Oxygen Flow Rate 09/06/24 07:31 09/06/24 08:00 09/06/24 10:42 Temperature 98.1 F 97.3 F L Pulse Rate 102 H 102 H 95 Respiratory Rate 18 18 18 Blood Pressure 103/66 98/60 L Pulse Oximetry 95 95 96 Oxygen Delivery Nasal Cannula Nasal Cannula Oxygen Flow Rate 2 2 Intake/Output Intake/Output: Intake & Output 09/03/24 09/04/24 09/05/24 09/06/24 23:59 23:59 23:59 23:59 Intake Total 2776.8 500 Output Total 750 Balance 2026.8 500 Meds/Results Medications: Active Medications Generic Name Dose Route Start Last Admin Trade Name Freq PRN Reason Stop Dose Admin Amitriptyline HCl 25 mg 09/05/24 03:22 09/05/24 23:38 Amitriptyline Hcl 25 Mg Tablet PO 25 mg HS PRN Administration Sleep Calcium Carbonate 500 mg 09/05/24 14:07 Calcium Carbonate (Tums) 500 Mg (200 Mg Elemental) PO Q6H PRN Indigestion Cyclobenzaprine HCl 10 mg 09/05/24 03:22 Cyclobenzaprine Hcl 10 Mg Tablet PO PRN PRN back spasms Ceftriaxone Sodium 1 gm in 50 mls @ 100 mls/hr 09/05/24 09:00 09/06/24 08:06 Rocephin 1 Gm/Ns 50 Ml IVPB 100 mls/hr Q24H ARACELI Administration Octreotide Acetate 500 mcg/ 100 mls @ 10 mls/hr 09/05/24 09:30 09/06/24 05:51 Sodium Chloride IV CONT 50 mcg/hr .Q10H ARACELI 10 mls/hr Administration 50 MCG/HR Lactated Ringer's 1,000 mls @ 150 mls/hr 09/06/24 10:40 09/06/24 11:31 Lr - Lactated Ringers Iv IV CONT 150 mls/hr .Q6H40M ARACELI Infusion Morphine Sulfate 2 mg 09/05/24 20:01 09/05/24 20:38 Morphine Sulfate (*Crx) 2 Mg/Ml Inj IV PUSH 2 mg Q4H PRN Administration Pain Rated 7-10 Ondansetron HCl 4 mg 09/05/24 09:10 09/05/24 13:29 Ondansetron Inj 4 Mg/2 Ml Vial IV PUSH 4 mg Q4H PRN Administration Nausea And Vomiting Pantoprazole Sodium 40 mg 09/05/24 21:00 09/06/24 08:03 Pantoprazole Sodium Iv 40 Mg Vial IV PUSH 40 mg Q12HR ARACELI Administration Sodium Chloride 20 ml 09/05/24 08:33 Central Line Flush IV PUSH PRN PRN after blood draws Sodium Chloride 10 ml 09/05/24 08:33 Central Line Flush IV PUSH PRN PRN with TPN bag changes Sodium Chloride 10 ml 09/05/24 14:00 09/06/24 05:51 Central Line Flush IV PUSH 10 ml Q8HR ARACELI Administration Radiology Results: ITS Impressions Chest X-Ray 09/04/24 16:28 IMPRESSION: No acute cardiopulmonary process. Abdomen/Pelvis CT 09/04/24 20:32 IMPRESSION: Cirrhosis with portal hypertension. Moderate ascites. Labs Labs: Laboratory Results - last 24 hr 09/04/24 09/04/24 09/04/24 16:31 19:22 19:55 WBC RBC Hgb Hct MCV MCH MCHC RDW Plt Count MPV % Immature Plt Fraction Haptoglobin 103 Sodium Potassium Chloride Carbon Dioxide Anion Gap BUN Creatinine Estim Creat Clear Calc Estimated GFR Glucose Calcium Total Bilirubin AST ALT Alkaline Phosphatase Total Protein 6.3 Albumin Ur Random Creatinine 102 U Random Total Protein 11 Protein/Creatinin Ratio 108 Blood Type A Positive Antibody Screen Positive Antibody Identification Cold Auto AB Antigen Identification Cancelled GREGORIA, IgG Interpret Positive GREGORIA, Poly Interpret TNP GREGORIA, Complement Interp Positive Crossmatch See Detail Enhanced Crossmatch See Detail 09/05/24 09/05/24 09/06/24 17:12 22:08 05:50 WBC 6.9 7.6 7.5 RBC 2.05 L 2.44 L 2.69 L Hgb 7.7 L D 7.7 L 7.6 L Hct 18.8 L* 22.7 L 23.6 L MCV 91.7 D 93.0 87.7 D MCH 37.6 H D 31.6 D 28.3 D MCHC 41.0 H D 33.9 32.2 RDW 24.0 H 25.0 H 23.0 H Plt Count 130 L D 127 L 133 L MPV 10.2 10.3 10.1 % Immature Plt Fraction 4.2 5.3 Haptoglobin Sodium Potassium Chloride Carbon Dioxide Anion Gap BUN Creatinine Estim Creat Clear Calc Estimated GFR Glucose Calcium Total Bilirubin AST ALT Alkaline Phosphatase Total Protein Albumin Ur Random Creatinine U Random Total Protein Protein/Creatinin Ratio Blood Type Antibody Screen Antibody Identification Antigen Identification GREGORIA, IgG Interpret GREGORIA, Poly Interpret GREGORIA, Complement Interp Crossmatch Enhanced Crossmatch 09/06/24 09:34 WBC RBC Hgb Hct MCV MCH MCHC RDW Plt Count MPV % Immature Plt Fraction Haptoglobin Sodium 139 Potassium 3.4 Chloride 105 Carbon Dioxide 26 Anion Gap 8 BUN < 2 L Creatinine 0.50 L Estim Creat Clear Calc 101 Estimated GFR > 60 Glucose 129 H Calcium 7.9 L Total Bilirubin 0.9 AST 48 H ALT 20 Alkaline Phosphatase 121 Total Protein 7.0 Albumin 3.0 L Ur Random Creatinine U Random Total Protein Protein/Creatinin Ratio Blood Type Antibody Screen Antibody Identification Antigen Identification GREGORIA, IgG Interpret GREGORIA, Poly Interpret GREGORIA, Complement Interp Crossmatch Enhanced Crossmatch
--- NOTE | 2024-09-06 12:18 | SUR.PHASEII ---
Telephone order received from Dr. Smith for a regular diet to start now.
--- NOTE | 2024-09-06 12:29 | PC.NURSE ---
Returned from GI Lab. Report received from [ONELIA Balderas @ [id number]].
[2024-09-06 14:40] LABS: Immature Platelet Fraction Pct 5.8 % (0.9-11.2); Mean Corpuscular HGB Conc 30.8 g/dl (32-36); Mean Corpuscular Hemoglobin 27.7 pg (26-34); Mean Platelet Volume 10.6 fl (7.4-10.4); Platelet Count Result 133 k/mm3 (150-375); Red Blood Count 2.89 M/mm3 (4.2-5.4); Red Cell Distribution Width 22.9 % (11.5-14.5); White Blood Count 7.4 K/mm3 (4.5-10.0)
--- NOTE | 2024-09-06 15:01 | PM.IMPN ---
Progress Note: A&P Assessment and Plan (1) Symptomatic anemia: Code(s): D64.9 - Anemia, unspecified Status: Acute Plan (1) Symptomatic anemia: Code(s): D64.9 - Anemia, unspecified Status: Acute Assessment and Plan: Multifactorial anemia secondary to iron and B12 deficiency. Patient also has upper GI bleed Receiving iron and B12 mentation Transfuse 3 units PRBC Management of GI bleed as below Monitor hemoglobin and transfuse additional PRBC as needed 09/06: Hemoglobin 8.0 no active bleeding (2) Upper GI bleed: Code(s): K92.2 - Gastrointestinal hemorrhage, unspecified Status: Acute Assessment and Plan: Patient appears to have GI bleed it could be either peptic ulcer disease secondary to NSAID use or varices Patient has been seen by GI and plan for EGD tomorrow Clear liquid diet now and NPO after midnight PPI IV q.12 hours and octreotide infusion Rocephin for SBP prophylaxis 09/06: EGD performed, that showed chronic gastritis without active bleeding. GI saw the patient, Gi considers that she is currently stable and at no risk for impeding upper GI bleeding. She has a business systems manager who can follow her as an outpatient. (3) B12 deficiency anemia: Qualifiers: Vitamin B12 deficiency anemia type: unspecified B12 deficiency Qualified Code(s): D51.9 - Vitamin B12 deficiency anemia, unspecified Code(s): D51.9 - Vitamin B12 deficiency anemia, unspecified Status: Acute Assessment and Plan: Patient C vitamin B12 injection IM (4) Iron deficiency anemia: Qualifiers: Iron deficiency anemia type: chronic blood loss Qualified Code(s): D50.0 - Iron deficiency anemia secondary to blood loss (chronic) Code(s): D50.9 - Iron deficiency anemia, unspecified Status: Acute Assessment and Plan: Patient received iron supplementation (5) Alcoholic cirrhosis of liver with ascites: Code(s): K70.31 - Alcoholic cirrhosis of liver with ascites Status: Acute Assessment and Plan: Patient was diagnosed with cirrhosis last year Coags reviewed GI discussed about the possiblity of a liver transplant at [facility], however she is still not sure about pursuing this. (6) Thrombocytopenia: Code(s): D69.6 - Thrombocytopenia, unspecified Status: Acute Assessment and Plan: Due to cirrhosis Stable, 133 today (7) Portal hypertension: Code(s): K76.6 - Portal hypertension Status: Acute Assessment and Plan: No gastroesophageal varices on EGD (8) Chronic GERD: Code(s): K21.9 - Gastro-esophageal reflux disease without esophagitis Status: Acute Assessment and Plan: PPI (9) Ascites: Code(s): R18.8 - Other ascites Status: Acute Assessment and Plan: CT scan showed moderate ascites Patient has distended abdomen on exam no paracentesis per GI prior to discharge Plan DVT prophylaxis -SCD Stress ulcer prophylaxis -PPI Nutrition -clear liquid diet, NPO after midnight Code Status - Full Code Subjective Date/time seen: 09/06/24 15:01 Interval history: I saw and examined patient today, patient denies chest pain abdomen pain nausea vomiting diarrhea of bloody stool today. Patient afebrile, blood pressure stable. Labs reviewed, hemoglobin stable, 8.0, Exam Narrative: GENERAL: Pleasant, in no acute distress. Well-nourished. - EYES: EOMI. Anicteric. - HENT: Moist mucous membranes. - LUNGS: Clear to auscultation bilaterally, no wheezing, rhonchi, or rales. - CARDIOVASCULAR: Regular rate and rhythm. No murmur. No JVD. - ABDOMEN: Soft, non-tender and non-distended. No palpable masses. - EXTREMITIES: No edema. Peripheral pulses 2+. Non-tender. - NEUROLOGIC: No focal neurological deficits. CN II-XII grossly intact. - PSYCHIATRIC: Awake, Alert and oriented x 3. Appropriate mood and affect. - SKIN: No rashes or lesions. Warm. - LYMPH: No cervical lymphadenopathy. Objective Data Vital Signs Vital Signs: Vital Signs - 24 hr 09/05/24 15:44 09/05/24 16:00 09/05/24 16:00 Temperature 98.1 F 98.1 F Pulse Rate 95 97 95 Respiratory Rate 16 14 Blood Pressure 117/83 117/83 Pulse Oximetry 94 94 Oxygen Delivery Oxygen Flow Rate 09/05/24 16:00 09/05/24 18:00 09/05/24 19:45 Temperature Pulse Rate 100 99 102 H Respiratory Rate 17 14 Blood Pressure Pulse Oximetry 96 93 Oxygen Delivery Room Air Room Air Oxygen Flow Rate 09/05/24 20:00 09/05/24 20:00 09/05/24 22:00 Temperature 98.3 F Pulse Rate 102 H 104 H 102 H Respiratory Rate 13 Blood Pressure 126/82 Pulse Oximetry 93 Oxygen Delivery Oxygen Flow Rate 09/06/24 00:00 09/06/24 00:00 09/06/24 00:00 Temperature 98.3 F Pulse Rate 15 L 105 H 408 H Respiratory Rate 19 19 Blood Pressure 127/73 Pulse Oximetry 92 93 Oxygen Delivery Room Air Oxygen Flow Rate 09/06/24 02:00 09/06/24 04:00 09/06/24 04:00 Temperature 98.4 F Pulse Rate 101 H 102 H 105 H Respiratory Rate 12 12 Blood Pressure 122/74 Pulse Oximetry 91 91 Oxygen Delivery Nasal Cannula Oxygen Flow Rate 2 09/06/24 04:00 09/06/24 06:00 09/06/24 07:31 Temperature 98.1 F Pulse Rate 102 H 104 H 102 H Respiratory Rate 18 Blood Pressure 103/66 Pulse Oximetry 95 Oxygen Delivery Oxygen Flow Rate 09/06/24 08:00 09/06/24 08:00 09/06/24 10:00 Temperature Pulse Rate 102 H 100 101 H Respiratory Rate 18 Blood Pressure Pulse Oximetry 95 Oxygen Delivery Nasal Cannula Oxygen Flow Rate 2 09/06/24 10:42 09/06/24 11:42 09/06/24 11:52 Temperature 97.3 F L Pulse Rate 95 97 95 Respiratory Rate 18 20 20 Blood Pressure 98/60 L 90/53 L 85/53 L Pulse Oximetry 96 95 95 Oxygen Delivery Nasal Cannula Nasal Cannula Nasal Cannula Oxygen Flow Rate 2 4 4 09/06/24 12:02 Temperature Pulse Rate 90 Respiratory Rate 18 Blood Pressure 102/73 Pulse Oximetry 95 Oxygen Delivery Nasal Cannula Oxygen Flow Rate 4 Intake/Output Intake/Output: Intake & Output 09/03/24 09/04/24 09/05/24 09/06/24 23:59 23:59 23:59 23:59 Intake Total 2776.8 1050 Output Total 750 Balance 2026.8 1050 Meds/Results Medications: Active Medications Generic Name Dose Route Start Last Admin Trade Name Freq PRN Reason Stop Dose Admin Amitriptyline HCl 25 mg 09/05/24 03:22 09/05/24 23:38 Amitriptyline Hcl 25 Mg Tablet PO 25 mg HS PRN Administration Sleep Calcium Carbonate 500 mg 09/05/24 14:07 Calcium Carbonate (Tums) 500 Mg (200 Mg Elemental) PO Q6H PRN Indigestion Cyclobenzaprine HCl 10 mg 09/05/24 03:22 Cyclobenzaprine Hcl 10 Mg Tablet PO PRN PRN back spasms Ceftriaxone Sodium 1 gm in 50 mls @ 100 mls/hr 09/05/24 09:00 09/06/24 13:05 Rocephin 1 Gm/Ns 50 Ml IVPB Infused Q24H ARACELI Infusion Morphine Sulfate 2 mg 09/05/24 20:01 09/05/24 20:38 Morphine Sulfate (*Crx) 2 Mg/Ml Inj IV PUSH 2 mg Q4H PRN Administration Pain Rated 7-10 Ondansetron HCl 4 mg 09/05/24 09:10 09/05/24 13:29 Ondansetron Inj 4 Mg/2 Ml Vial IV PUSH 4 mg Q4H PRN Administration Nausea And Vomiting Sodium Chloride 20 ml 09/05/24 08:33 Central Line Flush IV PUSH PRN PRN after blood draws Sodium Chloride 10 ml 09/05/24 08:33 Central Line Flush IV PUSH PRN PRN with TPN bag changes Sodium Chloride 10 ml 09/05/24 14:00 09/06/24 05:51 Central Line Flush IV PUSH 10 ml Q8HR ARACELI Administration Radiology Results: ITS Impressions Chest X-Ray 09/04/24 16:28 IMPRESSION: No acute cardiopulmonary process. Abdomen/Pelvis CT 09/04/24 20:32 IMPRESSION: Cirrhosis with portal hypertension. Moderate ascites. Labs Labs: Laboratory Results - last 24 hr 09/04/24 09/04/24 09/04/24 16:31 19:22 19:55 WBC RBC Hgb Hct MCV MCH MCHC RDW Plt Count MPV % Immature Plt Fraction Haptoglobin 103 Sodium Potassium Chloride Carbon Dioxide Anion Gap BUN Creatinine Estim Creat Clear Calc Estimated GFR Glucose Calcium Total Bilirubin AST ALT Alkaline Phosphatase Total Protein 6.3 Albumin Ur Random Creatinine 102 U Random Total Protein 11 Protein/Creatinin Ratio 108 Blood Type A Positive Antibody Screen Positive Antibody Identification Cold Auto AB Antigen Identification Cancelled GREGORIA, IgG Interpret Positive GREGORIA, Poly Interpret TNP GREGORIA, Complement Interp Positive Crossmatch See Detail Enhanced Crossmatch See Detail 09/05/24 09/05/24 09/06/24 17:12 22:08 05:50 WBC 6.9 7.6 7.5 RBC 2.05 L 2.44 L 2.69 L Hgb 7.7 L D 7.7 L 7.6 L Hct 18.8 L* 22.7 L 23.6 L MCV 91.7 D 93.0 87.7 D MCH 37.6 H D 31.6 D 28.3 D MCHC 41.0 H D 33.9 32.2 RDW 24.0 H 25.0 H 23.0 H Plt Count 130 L D 127 L 133 L MPV 10.2 10.3 10.1 % Immature Plt Fraction 4.2 5.3 Haptoglobin Sodium Potassium Chloride Carbon Dioxide Anion Gap BUN Creatinine Estim Creat Clear Calc Estimated GFR Glucose Calcium Total Bilirubin AST ALT Alkaline Phosphatase Total Protein Albumin Ur Random Creatinine U Random Total Protein Protein/Creatinin Ratio Blood Type Antibody Screen Antibody Identification Antigen Identification GREGORIA, IgG Interpret GREGORIA, Poly Interpret GREGORIA, Complement Interp Crossmatch Enhanced Crossmatch 09/06/24 09/06/24 09:34 13:35 WBC 7.4 RBC 2.89 L Hgb 8.0 L Hct 26.0 L MCV 90.0 MCH 27.7 MCHC 30.8 L RDW 22.9 H Plt Count 133 L MPV 10.6 H % Immature Plt Fraction 5.8 Haptoglobin Sodium 139 Potassium 3.4 Chloride 105 Carbon Dioxide 26 Anion Gap 8 BUN < 2 L Creatinine 0.50 L Estim Creat Clear Calc 101 Estimated GFR > 60 Glucose 129 H Calcium 7.9 L Total Bilirubin 0.9 AST 48 H ALT 20 Alkaline Phosphatase 121 Total Protein 7.0 Albumin 3.0 L Ur Random Creatinine U Random Total Protein Protein/Creatinin Ratio Blood Type Antibody Screen Antibody Identification Antigen Identification GREGORIA, IgG Interpret GREGORIA, Poly Interpret GREGORIA, Complement Interp Crossmatch Enhanced Crossmatch
--- NOTE | 2024-09-06 15:13 | P.DS_ITS ---
DS: Admitting Diagnosis Discharge Date 09/06/24 Admitting Diagnosis (1) Symptomatic anemia: Code(s): D64.9 - Anemia, unspecified Status: Acute DS: Discharge Diagnosis Discharge Diagnosis (1) Symptomatic anemia: Code(s): D64.9 - Anemia, unspecified Status: Acute DS: Summary Hospital Course Hospital Course: (1) Symptomatic anemia: Code(s): D64.9 - Anemia, unspecified Status: Acute Assessment and Plan: Multifactorial anemia secondary to iron and B12 deficiency. Patient also has upper GI bleed Receiving iron and B12 mentation Transfuse 3 units PRBC Management of GI bleed as below Monitor hemoglobin and transfuse additional PRBC as needed 09/06: Hemoglobin 8.0 no active bleeding (2) Upper GI bleed: Code(s): K92.2 - Gastrointestinal hemorrhage, unspecified Status: Acute Assessment and Plan: Patient appears to have GI bleed it could be either peptic ulcer disease secondary to NSAID use or varices Patient has been seen by GI and plan for EGD tomorrow Clear liquid diet now and NPO after midnight PPI IV q.12 hours and octreotide infusion Rocephin for SBP prophylaxis 09/06: EGD performed, that showed chronic gastritis without active bleeding. GI saw the patient, Gi considers that she is currently stable and at no risk for impeding upper GI bleeding. She has a tile burner who can follow her as an outpatient. Start prednisone 40 mg daily p.o., Carafate 1 g a.c. q.h.s. (3) B12 deficiency anemia: Qualifiers: Vitamin B12 deficiency anemia type: unspecified B12 deficiency Qualified Code(s): D51.9 - Vitamin B12 deficiency anemia, unspecified Code(s): D51.9 - Vitamin B12 deficiency anemia, unspecified Status: Acute Assessment and Plan: Patient received C vitamin B12 injection IM (4) Iron deficiency anemia: Qualifiers: Iron deficiency anemia type: chronic blood loss Qualified Code(s): D50.0 - Iron deficiency anemia secondary to blood loss (chronic) Code(s): D50.9 - Iron deficiency anemia, unspecified Status: Acute Assessment and Plan: Patient received iron supplementation Start ferrous sulfate 325 mg daily p.o. on discharge (5) Alcoholic cirrhosis of liver with ascites: Code(s): K70.31 - Alcoholic cirrhosis of liver with ascites Status: Acute Assessment and Plan: Patient was diagnosed with cirrhosis last year Coags reviewed GI discussed about the possiblity of a liver transplant at [facility], however she is still not sure about pursuing this. (6) Thrombocytopenia: Code(s): D69.6 - Thrombocytopenia, unspecified Status: Acute Assessment and Plan: Due to cirrhosis Stable, 133 today (7) Portal hypertension: Code(s): K76.6 - Portal hypertension Status: Acute Assessment and Plan: No gastroesophageal varices on EGD (8) Chronic GERD: Code(s): K21.9 - Gastro-esophageal reflux disease without esophagitis Status: Acute Assessment and Plan: PPI (9) Ascites: Code(s): R18.8 - Other ascites Status: Acute Assessment and Plan: CT scan showed moderate ascites Patient has distended abdomen on exam no paracentesis per GI prior to discharge Discharge patient per GI recommendation Time Spent with Patient Time attestation: Total time spent providing and/or coordinating discharge services: Exam Narrative: GENERAL: Pleasant, ill-appearing, in no acute distress. Well-nourished. - EYES: EOMI. Anicteric. - HENT: Moist mucous membranes. - LUNGS: Clear to auscultation bilateral ly, no wheezing, rhonchi, or rales. - CARDIOVASCULAR: Regular rate and rhyth m. No murmur. No JVD. - ABDOMEN: Soft, non-tender and non-dist ended. No palpable masses. - EXTREMITIES: No edema. Peripheral puls es 2+. Non-tender. - NEUROLOGIC: No focal neurological defi cits. CN II-XII grossly intact. - PSYCHIATRIC: Awake, Alert and oriented x 3. Appropriate mood and affect. - SKIN: No rashes or lesions. Warm. - LYMPH: No cervical lymphadenopathy. DS: Data Data Completed and Pending Labs on day of discharge: Labs from last 24 hours 09/06/24 09/06/24 09/06/24 13:35 09:34 05:50 WBC 7.4 7.5 RBC 2.89 L 2.69 L Hgb 8.0 L 7.6 L Hct 26.0 L 23.6 L MCV 90.0 87.7 D MCH 27.7 28.3 D MCHC 30.8 L 32.2 RDW 22.9 H 23.0 H Plt Count 133 L 133 L MPV 10.6 H 10.1 % Immature Plt Fraction 5.8 Haptoglobin Sodium 139 Potassium 3.4 Chloride 105 Carbon Dioxide 26 Anion Gap 8 BUN < 2 L Creatinine 0.50 L Estim Creat Clear Calc 101 Estimated GFR > 60 Glucose 129 H Calcium 7.9 L Total Bilirubin 0.9 AST 48 H ALT 20 Alkaline Phosphatase 121 Total Protein 7.0 Albumin 3.0 L Ur Random Creatinine U Random Total Protein Protein/Creatinin Ratio Blood Type Antibody Screen Antibody Identification Antigen Identification GREGORIA, IgG Interpret GREGORIA, Poly Interpret GREGORIA, Complement Interp Crossmatch Enhanced Crossmatch 09/05/24 09/05/24 09/04/24 22:08 17:12 19:55 WBC 7.6 6.9 RBC 2.44 L 2.05 L Hgb 7.7 L 7.7 L D Hct 22.7 L 18.8 L* MCV 93.0 91.7 D MCH 31.6 D 37.6 H D MCHC 33.9 41.0 H D RDW 25.0 H 24.0 H Plt Count 127 L 130 L D MPV 10.3 10.2 % Immature Plt Fraction 5.3 4.2 Haptoglobin 103 Sodium Potassium Chloride Carbon Dioxide Anion Gap BUN Creatinine Estim Creat Clear Calc Estimated GFR Glucose Calcium Total Bilirubin AST ALT Alkaline Phosphatase Total Protein 6.3 Albumin Ur Random Creatinine U Random Total Protein Protein/Creatinin Ratio Blood Type Antibody Screen Antibody Identification Antigen Identification GREGORIA, IgG Interpret GREGORIA, Poly Interpret GREGORIA, Complement Interp Crossmatch Enhanced Crossmatch 09/04/24 09/04/24 19:22 16:31 WBC RBC Hgb Hct MCV MCH MCHC RDW Plt Count MPV % Immature Plt Fraction Haptoglobin Sodium Potassium Chloride Carbon Dioxide Anion Gap BUN Creatinine Estim Creat Clear Calc Estimated GFR Glucose Calcium Total Bilirubin AST ALT Alkaline Phosphatase Total Protein Albumin Ur Random Creatinine 102 U Random Total Protein 11 Protein/Creatinin Ratio 108 Blood Type A Positive Antibody Screen Positive Antibody Identification Cold Auto AB Antigen Identification Cancelled GREGORIA, IgG Interpret Positive GREGORIA, Poly Interpret TNP GREGORIA, Complement Interp Positive Crossmatch See Detail Enhanced Crossmatch See Detail Discharge Plan Discharge Attending physician on discharge: Asya Mejia Discharging Clinician: Asya Mejia Anticipated Discharge Date/Time: 09/06/24 15:15 Patient Disposition: Home, Self-Care Activity: as tolerated Diet: as tolerated Patient Instructions: Antibiotic Form, Gastrointestinal Bleeding (GEN), Anemia (GEN) Patient Language: Welsh Stand Alone Forms: General Discharge Information Follow-up/Referrals: Kalee,Kristian Kruse MD [Primary Care Provider] - (See PCP 1 week) Discharge Medications: New pantoprazole [Protonix] 40 mg tablet,delayed release (DR/EC) 40 mg PO HS 56 Days Qty: 56 0RF sucralfate [Carafate] 1 gram tablet 1 g PO ACHS Qty: 120 0RF ferrous sulfate 325 mg (65 mg iron) tablet,delayed release (DR/EC) 325 mg PO DAILY Qty: 60 0RF Continued albuterol sulfate 90 mcg/actuation HFA aerosol inhaler 1 inh inhalation QID PRN (Reason: shortness of breath or wheezing) 30 Days Qty: 8.5 0RF cyclobenzaprine 10 mg tablet 10 mg PO PRN PRN (Reason: back spasms) amitriptyline 25 mg tablet 25 mg PO PRN PRN (Reason: Sleep) multivitamin Tablet 1 tablet PO DAILY Discontinued ibuprofen 600 mg tablet 600 mg PO DAILY PRN (Reason: Pain) Date of admission: 09/04/24 21:32 Primary Care Provider: KaleeKristian Admitting Provider: Evelyn Welsh Attending physician on admission: Evelyn Welsh Condition: Stable
[2024-09-06 19:04] LABS: Albumin 2.7 g/dL (3.8-4.8); Alpha 1 Globulin 0.4 g/dL (0.2-0.3); Alpha 2 Globulin 0.6 g/dL (0.5-0.9); Beta 1 Globulin 0.5 g/dL (0.4-0.6); Gamma Globulin 1.7 g/dL (0.8-1.7)
[2024-09-09 16:59] LABS: Soluble Transferrin Receptor 5.26 mg/L (0.76-1.76)
== END 2024-09-06 16:42 | disposition home or self-care (01) | DRG 663 ==
LOC: ANHED 21:17 → ANHIMU 22:23 → ANHICU 23:36 → ANHIMU 09-06 08:22 → ANHICU 09-07 11:09 → ANHIMU 09-07 11:09
PROVIDERS: Internal Medicine; Internal Medicine Gastroenterology; Physician Assistant; Admitting Provider Internal Medicine; Emergency Provider Emergency Medicine; PCP Family Medicine; Visit Provider Hospitalist
PROC: 0DJ08ZZ Inspection of Upper Intestinal Tract, Via Natural or Artificial Opening Endoscopic (ICD-10-PCS; principal; 2024-09-06 13:45)
DX: D64.89 Other specified anemias (principal); T39.395A Adverse effect of other nonsteroidal anti-inflammatory drugs [NSAID], initial encounter; D50.9 Iron deficiency anemia, unspecified; D51.9 Vitamin B12 deficiency anemia, unspecified; K70.31 Alcoholic cirrhosis of liver with ascites; K92.2 Gastrointestinal hemorrhage, unspecified; K76.6 Portal hypertension; K31.89 Other diseases of stomach and duodenum; K29.30 Chronic superficial gastritis without bleeding; D69.6 Thrombocytopenia, unspecified; J44.9 Chronic obstructive pulmonary disease, unspecified; I10 Essential (primary) hypertension; F17.210 Nicotine dependence, cigarettes, uncomplicated
CPT/HCPCS: 36415; 36430; 36569; 71046; 74177; 80053; 82247; 82248; 82570; 82607; 82728; 82746; 83010; 83540; 83550; 83615; 83690; 83880; 84155; 84156; 84165; 84166; 84238; 84439; 84443; 84466; 84480; 84484; 85025; 85027; 85046; 85055; 85610; 85730; 86850; 86860; 86870; 86880; 86900; 86901; 86902; 86920; 86922; 86978; 87637; 93005; 96361; 96374; 96376; 99285; A9270; C1751; J0696; J1756; J2003; J2270; J2354; J2405; J2470; J2704; J3420; J7050; J7120; P9016; Q9967

== ENCOUNTER 2024-09-20 13:25 | Emergency (ER) | payer OTHER, SELFPAY ==
--- NOTE | ~2024-09-20 | CT_ITS ---
EXAMINATION: CT abdomen pelvis w con DATE: 09/20/2024 15:36 INDICATION: Low abdominal pain. Bloating. TECHNIQUE: Computed tomography (CT) of the abdomen and pelvis was performed with 100 mL Omnipaque 350 intravenous contrast. Automated exposure control and iterative reconstruction technique were employe d. The dose-length product was 414.21 mGy-cm. COMPARISON: CT abdomen and pelvis 09/04/2024 FINDINGS: The visualized portions of the lung bases demonstrate mild atelectasis. No pleural effusion . The heart size is normal. No pericardial effusion. Esophageal varices are noted. The liver demonstr ates surface nodularity, consistent with cirrhosis. There is a paraumbilical portacaval shunt. There are gallstones in the gallbladder, which is normal in size. The spleen, pancreas, adrenal glands, and kidneys are normal. There is diverticulosis of the colon without evidence of diverticulitis. There i s wall thickening of the ascending and transverse colon. The appendix is normal. There is a small vol ume of ascites. There is edema of the intra-abdominal fat. There are no pathologically enlarged lymph nodes. There is an old healed fracture of proximal right femur with internal fixation. There is mild lumbar spondylosis. IMPRESSION: 1. Cirrhosis of the liver with portal venous hypertension. 2. Small volume of ascites. 3. Wall thickening of the ascending and transverse colon, most likely interstitial edema from portal venous hypertension. Colitis may have the same appearance, but is less likely. Reviewed, dictated and finalized at location A. ER SHIELDED METAL ARC IMPRESSION: 1. Cirrhosis of the liver with portal venous hypertension. 2. Small volume of ascites. 3. Wall thickening of the ascending and transverse colon, most likely interstit ial edema from portal venous hypertension. Colitis may have the same appearance , but is less likely.
[2024-09-20 13:49] VITALS: BP 131/71; PULSE 111; RESP 16; TEMP 36.6; O2SAT 97
[2024-09-20 14:38] LABS: Add Urine Microscopic? YES; Appearance Urine Clear (Clear); Bacteria Urine None Seen /hpf; Bilirubin Urine Negative (Negative); Blood Urine Negative (Negative); Color Urine Yellow (Yellow); Glucose Urine UA Negative (Negative); Ketones Urine Negative (Negative); Leukocyte Esterase Ur Trace LEU/UL (Negative); Nitrate Urine Negative (Negative); Non Pathogenic Casts 0-2; Protein Urine Negative (Negative); RBC Urine 0-2 /hpf (0-2); Specific Grav Ur 1.012 (1.001-1.035); Squamous Epithelial Cell Urine None Seen /hpf (Few); Urobilinogen Urine 0.2 mg/dL (<2.0); pH Urine 5.5 (5.0-9.0)
[2024-09-20 14:40] VITALS: BP 119/76; PULSE 103; RESP 16; O2SAT 95
--- OUTSIDE RECORDS SUMMARY | 2024-09-20 14:54 | XMS_ITS | Data Portability ---
Author Organization [place] - [facility] [employer], Main Office Address [address] [place] [address] Care Team Providers Care Pastrycook Name Role Phone DAJUAN MARIE Primary Care Provider [phone] DAJUAN MARIE Referring Provider [phone] Assessment Encounter Date Assessment Date Assessment LastModified [...] 3 view No observ ation record ed. [id number] [facility] [place] [address], [place], [address], 09/16/2022 15:59:57 06/19/20 21 XR, wrist , 3 or more view No observ ation record ed. [id number] [facility] [place] [address], [place], [address], 09/16/2022 15:59:57 07/14/20 21 07/14/2021 MRI, knee, w/o contr ast [facility] [address] [address] Patien t Name: NICOLE ARNDT Access ion #: [id number] Sex: F : 1974 3 Locati [...] are seen at Page 1 of 2 [facility] Patisahil t Name: NICOLE ARNDT Access ion #: [id number] Sex: F : 1974 3 Exam Date: 2020 8:28 AM Exam Name: MRI KNEE LT WO Admitt ing Diagno sis(es ): the patell a. A small tear of the brim stretching machine operator ior horn latera l menisc us is noted. There is a bone contus ion/no ndispl aced fractu re of the brim stretching machine operator ior aspect of the latera l tibial platea u. AV small brim stretching machine operator ior horn medial menisc al tear is noted. There is fluid/ inflam mation of Hoffa' s fat pad IMPRES ISABELLE: Small tears of the brim stretching machine operator ior horns of the medial and latera l menisc i. Bone contus ion/no ndispl aced fractu re throug h the brim stretching machine operator olater al aspect of the tibial platea u. Degene rative change s. Create d and electr onical ly signed by: Jamie Kebede ch, DO Signed Date: 2020 9:41 AM (CT) Dictat ed by: Jamie Kebede ch, DO DD: 2020 9:41 AM (CT) DT: 2020 9:41 AM (CT) Page 2 of 2 [id number] [facility] [place] (Imaging) [address] [place], [address], 09/16/2022 15:59:57 07/31/19 22 XR, knee, 3 view No observ ation record ed. [id number] [facility] [place] [address], [place], [address], 09/16/2022 15:59:57 07/31/19 22 XR, wrist , 3 or more view No observ ation record ed. [id number] [facility] [place] [address], [place], [address], 09/16/2022 15:59:57 Result Notes None recorded. Problems Name Problem SNOMED Code Status Onset Date Resolution Date Notes Provider Name and Address Organization Details Recorded Time Tobacco user 587224744 Active Not Available [facility] 3 15:58:32 Asthma 601219026 Active Not Available [facility] 3 15:58:32 Right lower quadrant pain 413231638 Active Not Available [facility] 3 15:58:32 Tear of medial meniscus of knee 771681707 Active 2020 Not Available [facility] 3 15:58:32 Cyst of ovary 39784897 Active Not Available [facility] 3 15:58:32 Epidermoid cyst of skin 495047493 Active 2022 Jacques mendes MD [address] [facility] [place] [address], [place], [address] , [facility] 3 13:23:20 Problem Notes None recorded. Procedures Surgical History Date Name Laterality Status Provider Name and Address Organization Details Recorded Time 3 Excision Cyst Multilayer completed Jacques bejarano MD [address] [facility], [facility] [address], [place], [address], [place] 11/03/2022 12:57:54 Imaging Results Imaging Date Name Status LastModified by Organiz ation Details LastModified Time 06/19/2021 XR, knee, 3 view completed [id number] [facility] [place] [address] [facility] [address], [place], [address], 09/16/2022 15:59:57 06/19/2021 XR, wrist, 3 or more view completed [id number] [facility] [place] [address], [place], [address], 09/16/2022 15:59:57 07/14/2021 MRI, knee, w/o contrast completed [id number] [facility] (Imaging) [address] [place], [address], 09/16/2022 15:59:57 07/31/2021 XR, knee, 3 view completed [id number] [facility] [place] [address], [place], [address], 09/16/2022 15:59:57 07/31/2021 XR, wrist, 3 or more view completed [id number] [facility] [place] [address], [place], [address], 09/16/2022 15:59:57 Procedure Notes None recorded. Medical Equipment None Reported. Allergies Allergen ID Allergen Name Allergen Category Reaction Reaction Severity Criticality Documentation Date Start Date Code Code System Note Provider Name and Address Organization Details Recorded Time 82637 Substance with sulfonami de structure and antibacte rial mechanism of action (substanc e) medicatio n headache severe Not available 09/16/2022 24954 8003 SNOMED Not Available [facility] 15:59:53 Medications Name Sig Start Date Stop [...] Date Recorded Body mass index (BMI) Body height Oxygen saturation Oxygen saturation in Arterial blood by Pulse oximetry Heart rate Respiratory rate Body temperature Body weight Systolic blood pressure Diastolic blood pressure Provider Name and Address Organization Details Last Updated DateTime 1 19 kg/m2 157.48 cm 93 % 93 % 67 /min 16 /min 98 [degF] 12130.6 1 g 120 mm[Hg] 80 mm[Hg] Not Available [facility] 3 15:57:31 Date Recorded Body mass index (BMI) Body height Body weight Provider Name and Address Organization Details Last Updated DateTime 07/31/2021 17.6 kg/m2 157.48 cm 66193.87 g Not Available [facility] 09/16/2022 15:57:32 Date Recorded Body height Body mass index (BMI) Body weight Respiratory rate Body temperature Heart rate Oxygen saturation Oxygen saturation in Arterial blood by Pulse oximetry Systolic blood pressure Diastolic blood pressure Provider Name and Address Organization Details Last Updated DateTime 3 157.48 cm 20.1 kg/m2 81439.1 6 g 14 /min 98.2 [degF] 100 /min 92 % 92 % 110 mm[Hg] 70 mm[Hg] [facility] 3 11:56:43 Date Recorded Body height Body mass index (BMI) Body weight Body temperature Heart rate Respiratory rate Oxygen saturation Oxygen saturation in Arterial blood by Pulse oximetry Systolic blood pressure Diastolic blood pressure Provider Name and Address Organization Details Last Updated DateTime 3 157.48 cm 20.1 kg/m2 45727.1 6 g 98.2 [degF] 100 /min 14 /min 92 % 92 % 110 mm[Hg] 70 mm[Hg] [facility] 3 12:16:24 Date Recorded Body height Body mass index (BMI) Body weight Body temperature Heart rate Respiratory rate Oxygen saturation Oxygen saturation in Arterial blood by Pulse oximetry Systolic blood pressure Diastolic blood pressure Provider Name and Address Organization Details Last Updated DateTime 3 157.48 cm 20.1 kg/m2 68905.1 6 g 98.2 [degF] 100 /min 14 /min 92 % 92 % 110 mm[Hg] 70 mm[Hg] [facility] 3 11:30:50 Social History Question Answer Notes LastModified by Organizat ion Details LastModified Time Tobacco Smoking Status Current Every Day Smoker Not Available [facility] 09/16/2022 15:57:22 What Is Your Level Of Alcohol Consumption? Heavy [id number] 26 Information not available 09/16/2022 What Was The Date Of Your Most Recent Tobacco Screening? 04/10/2021 [id number] 26 Information not available 09/16/2022 What Is Your Current Pack Years? 30ormorepacky ears MIGRATION.[id number] 26 Information not available 09/16/2022 At What Age Did You Start Smoking Tobacco? 12 [id number] 26 Information not available 09/16/2022 How Much Tobacco Do You Smoke? 1 PPD MIGRATION.[id number] 26 Information not available 09/16/2022 How Many Years Have You Smoked Tobacco? 34 [id number].09595621 26 Information not available 09/16/2022 Have You Recently Traveled Abroad? No [id number] 26 Information not available 09/16/2022 Sex: Unknown Functional Status None recorded. Mental Status None recorded. Family History Relationship Description Onset Age of this Age Resolved Age Notes LastModified by Organization Details LastModified Time Father Diabetes mellitus [id number] [id number] Not available 09/16/2022 15:57:26 Mother Hypertensive disorder [id number] [id number] Not available 09/16/2022 15:57:26 Medical History Condition Response ASTHMA Y HYPERTENSION Y Gynecological HistoryNo gynecological history recorded. Obstetrics History GPAL:G 0 P 0 0 0 0 Past Encounters Encounter ID Performer Location Encounter Start Date Encounter Closed Date Diagnosis/Indication Diagnosis SNOMED-CT Code Diagnosis ICD10 Code Diagnosis Note [id number] [facility] [place] [address] [place] [address] 04/10/2021 00:00:00 04/10/2021 11:06:18 [id number] [facility] [place] [address] [place] [address] 04/17/2021 00:00:00 04/17/2021 14:46:07 [id number] [facility] [place] [address] [place] [address] 04/22/2021 00:00:00 04/22/2021 14:50:29 [id number] [facility] [place] [address] [place] [address] 05/01/2021 00:00:00 05/01/2021 15:30:54 [id number] [facility] [place] [address] [place] [address] 05/22/2021 00:00:00 05/22/2021 12:32:33 [id number] [facility] [place] [address] [place] [address] 06/10/2021 00:00:00 06/10/2021 15:18:38 [id number] [facility] [place] [address] [place] [address] 06/19/2021 00:00:00 06/19/2021 11:14:24 [id number] [facility] [address] [address] 07/15/2021 00:00:00 07/15/2021 14:06:56 [id number] [facility] [place] [address] [place] [address] 07/31/2021 00:00:00 07/31/2021 10:33:11 [id number] Jacques mendes MD [facility] General Surgery [address] [address] 10/15/2022 11:15:01 10/15/2022 12:13:18 Epidermoid cyst of skin 894295316 L72.0 Left Ear lobe and right hip [id number] Jacques mendes MD [facility] General Surgery [address] [address] 11/03/2022 12:13:38 11/03/2022 14:15:27 Epidermoid cyst of skin 828433843 L72.0 Left Ear lobe and right hip [id number] Jacques mendes MD [facility] General Surgery [address] [address] 11/10/2022 11:12:47 11/10/2022 12:45:41 Epidermoid cyst of skin 454632709 L72.0 Left Ear lobe and right hip Removal of suture 481325 01 Z48.02 Health Concerns Section Related Observation LastModified by Organization Detai ls LastModified Time None Recorded Concern Status LastModified by Organization Details LastModified Time None Recorded Advance Directives Directive None Recorded Payers Encounter Date Sequence Insurance Name Policy Number Policy Whatley Covered Member ID Whatley Member ID Guarantor Name 10/15/2022 1 [facility] (MEDICAID HMO) [id number] Radha C Crep [id number] Radha C Crep 11/03/2022 1 [facility] (MEDICAID HMO) [id number] Radha C Crep [id number] Radha C Crep 11/10/2022 1 [facility] (MEDICAID HMO) [id number] Radha C Crep [id number] Radha C Crep Notes Date Note Type Note Provider Name and Address Organization Details Recorded Time 10/15/2022 text/html patient complain s of system behind left ear and also on right hip that she has had for several years occasionally they become inflamed and painful. Jacques Zamudio MD [address] [place] [address], [place], [address], [employer] 10/15/2022 13:23:47 11/03/2022 text/html patient complain s of system behind left ear and also on right hip that she has had for several years occasionally they become inflamed and painful. Jacques Zamudio MD [address], [place], [address], [employer] 11/03/2022 13:55:29 11/10/2022 text/html s/p cyst excisio n of L posterior ear and R upper thigh. No cocnerns. no drainage. no fevers. Jacques Zamudio MD [address], [place], [address], [employer] 11/10/2022 12:57:55 OBGyn Episode No OBEpisode recorded.
--- OUTSIDE RECORDS SUMMARY | 2024-09-20 14:55 | XMS_ITS | Encounter Summary ---
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 Not hard at all 01/28/2024 [facility] [place] [facility] - Occupational Stress [...] place to sleep or slept in a longterm (including now)? No 01/28/2024 Sex and Gender [...] Care Team (Late st Contact Info) Description 11/30/2024 2:00 PM CDT Office Visit [facility] - Pulmonology [address] [place] [address], [place] [address] Samm Barrow MD [address] [place] [address] DIV OF PULMONARY MED [address] [place] [address] documented as of this encounter Visit Diagnoses Not on filedocumented in this encounter Care Teams [employer] Member Relationship Specialty Start Date End Date Kristian Granda MD PCP - General 08/24/18 documented as of this encounter
--- OUTSIDE RECORDS SUMMARY | 2024-09-20 14:55 | XMS_ITS | Data Portability ---
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 Plan of Treatment Reminders Order Date Submit Date Provider Last Modified By Organization Details Last Modified Time Details Appointments ANY 2024 02:15P Tonja Aceves, DO Not available Not available Not available ANY 15 2024 02:00P Tonja Javad Aceves, DO Not available Not available Not available Lab CBC w/ auto diff 2024 025 [facility] (Lab), [address] [place], [address], 09/15/2024 07:18:19 iron + TIBC + ferritin , serum 2024 025 [facility] (Lab), [address] [place], [address], 09/15/2024 07:18:19 CBC 2024 025 [facility] (Lab), [address] [place], [address], 09/04/2024 17:01:25 CBC 2024 025 [facility] (Lab), [address] [place], [address], 09/04/2024 16:17:51 carotene , serum [facility] [address] [place], [address], 09/13/2024 12:05:03 carotene , serum 2024 025 [facility] (Lab), [address] [place], [address], 09/07/2024 11:37:28 CMP, serum or plasma 2024 [place], [address] [facility], [address], [place], [address], 08/28/2024 22:06:40 Referral occupati onal therapis t referral - function al capacity examinai ton 2024 [facility] PT, OT, Speech Therapy, [address] [place], [address], 09/15/2024 14:08:34 Procedures None recorded . Surgeries None recorded . Imaging MAMMO, screenin g, bilatera l 2024 025 [facility] [address] [place], [address], 09/18/2024 11:49:45 US, abdomen - Suspect ascites 2024 025 [facility] (Radiology), [address] [place], [address], 08/28/2024 13:10:59 Medication Orders amitript yline 25 mg tablet 2024 025 [place] [id number], [address], [place], [id number], 08/28/2024 12:26:33 Patient TargetsNo targets recorded. Patient Instructions Encounter Date Encounter Id Patient Instructions Last Modified By Organization Details Last Modified Time 05/30/2024 [id number] learning about high blood pressure [email or web address] Not available 05/30/2024 16:50:40 Recommend stopping metoprolol as your blood pressure tends to be low. Follow up in 3 months for a blood pressure check. Awesome job with quitting smoking so far. [email or web address] Not available 05/30/2024 16:49:53 08/28/2024 [id number] mammogram: about this test [email or web address] Not available 08/28/2024 12:26:23 deciding about using medicines to quit smoking [email or web address] Not available 08/28/2024 12:26:23 Quitting Tobacco : Care Instructions [email or web address] Not available 08/28/2024 12:26:23 substance use disorder: care instructions [email or web address] Not available 08/28/2024 12:26:23 learning about high blood pressure [email or web address] Not available 08/28/2024 12:26:23 09/13/2024 [id number] A healthy lifestyle: care instructions [email or web address] Not available 09/13/2024 18:12:03 dash diet: care instructions [email or web address] Not available 09/13/2024 17:41:48 How To Lower Blood Pressure [email or web address] Not available 09/13/2024 17:41:48 Reason for Referral Occupational Therapist Refer ral for Pain in right hip joint functional capacity examinaiton Referring Physician: Lilliam Hebert, Family Medicine, Encounter Date: 09/13/2024 Results Created Date Observation Date Name Description Value Unit Range Abnormal Flag Note LastModifiedBy Organization Detail LastModifiedTime 06/27/20 24 06/28/2024 Iron and Iron betsy ng capac ity panel - Serum or Plasm a iron binding capacity [mass/volume ] in serum or plasma 272 text: 250 - 450 ug/dL Iron Bind. Cap.( TIBC) 272 250 - 450 UG/DL TANIA ARNDT [facility] O[facility] Not Available Not Available 09/06/2024 12:03:55 06/27/20 24 06/28/2024 Iron and Iron betsy ng capac ity panel - Serum or Plasm a iron binding capacity.uns aturated [mass/volume ] in serum or plasma 192 text: 131 - 425 ug/dL UIBC 192 131 - 425 UG/DL CANCE R CENTE R SPECI ALIST S OF [facility] OIS Not Available Not Available 09/06/2024 12:03:55 06/27/20 24 06/28/2024 Iron and Iron betsy ng capac ity panel - Serum or Plasm a iron [mass/volume ] in serum or plasma 80 text: 27 - 159 ug/dL Iron, Serum 80 27 - 159 UG/DL CANCE R CENTE R SPECI ALIST S OF [facility] OIS Not Available Not Available 09/06/2024 12:03:55 06/27/20 24 06/28/2024 Iron and Iron betsy ng capac ity panel - Serum or Plasm a iron saturation [mass fraction] in serum or plasma 29 % low: 15%hig h: 55% Iron Satur ation 29 15 - 55 % CANCE R CENTE R SPECI ALIST S OF [facility] OIS Not Available Not Available 09/06/2024 12:03:55 06/27/20 24 06/28/2024 Iron and Iron betsy ng capac ity panel - Serum or Plasm a Unknown Analyte TESTIN G PERFOR MED AT: [CB] [facility] , [address], [place], [address], PHONE: [phone] , MEG BHANDARI DIRECT OR: STACI GREENFIELD, PHD Not Available Not Available 12:03:55 06/27/20 24 06/27/2024 Retic ulocy christina/1 00 eryth rocyt es in Blood by Autom ated count reticulocyte s/100 erythrocytes in blood by automated count 2.05 % low: 0.5%hi gh: 1.7% high Retic ulocy te count 2.05 (H) 0.50 - 1.70 % CANCE R CENTE R SPECI ALIST S OF [facility] OIS Not Available Not Available 09/06/2024 12:03:55 06/27/20 24 06/27/2024 Retic ulocy christina/1 00 eryth rocyt es in Blood by Autom ated count hemoglobin [entitic mass] in reticulocyte s by automated count 34.9 pg low: 28.2pg high: 36.6pg RET-H e 34.90 28.20 - 36.60 pg [facility] Not Available Not Available 09/06/2024 12:03:55 06/27/20 24 06/27/2024 Retic ulocy christina/1 00 eryth rocyt es in Blood by Autom ated count Unknown Analyte Releas e to patien t->Imm ediate Not Available Not Available 12:03:55 06/27/20 24 06/27/2024 Retic ulocy christina/1 00 eryth rocyt es in Blood by Autom ated count interpretati on and review of laboratory results Abnorm fl Not Available Not Available 12:03:55 06/27/20 24 06/27/2024 Lacta te dehyd rogen ase [Enzy matic activ ity/v olume ] in Serum or Plasm a by Lacta te to pyruv ate react ion lactate dehydrogenas e [enzymatic activity/vol ume] in serum or plasma by lactate to pyruvate reaction 161 U/L low: 140U/L high: 271U/L LDH 161 140 - 271 U/L CANCE R CENTE R SPECI ALIST S OF [facility] OIS Not Available Not Available 09/06/2024 12:03:55 06/27/20 24 06/27/2024 Lacta te dehyd rogen ase [Enzy matic activ ity/v olume ] in Serum or Plasm a by Lacta te to pyruv ate react ion Unknown Analyte Releas e to patien t->Imm ediate Not Available Not Available 12:03:55 06/27/20 24 06/27/2024 Compr ehens calvin metab olic 2000 panel - Serum or Plasm a glucose [mass/volume ] in serum or plasma 177 mg/dL low: 70mg/d Lhigh: 105mg/ dL high Gluco se 177 (H) 70 - 105 mg/dL CANCE R CENTE R SPECI ALIST S OF [facility] Not Available Not Available 09/06/2024 12:03:54 06/27/20 24 06/27/2024 Compr ehens calvin metab olic 2000 panel - Serum or Plasm a urea nitrogen [mass/volume ] in serum or plasma 5 mg/dL low: 7mg/dL high: 25mg/d L low Blood Urea Nitro gen 5 (L) 7 - 25 mg/dL CANCE R CENTE R SPECI ALIST S OF [facility] OIS Not Available Not Available 09/06/2024 12:03:54 06/27/20 24 06/27/2024 Compr ehens calvin metab olic 1999 panel - Serum or Plasm a creatinine [mass/volume ] in serum or plasma 0.5 mg/dL low: 0.6mg/ dLhigh : 1.2mg/ dL low Creat inine 0.5 (L) 0.6 - 1.2 mg/dL CANCE R CENTE R SPECI ALIST S OF [facility] OIS Not Available Not Available 09/06/2024 12:03:54 06/27/20 24 06/27/2024 Compr ehens calvin metab olic 1999 panel - Serum or Plasm a sodium [moles/volum e] in serum or plasma 141 text: 136 - 145 mEq/L Sodiu m 141 136 - 145 mEq/L CANCE R CENTE R SPECI ALIST S OF [facility] OIS Not Available Not Available 09/06/2024 12:03:54 06/27/20 24 06/27/2024 Compr ehens calvin metab olic 2000 panel - Serum or Plasm a potassium [moles/volum e] in serum or plasma 4.1 text: 3.5 - 5.1 mEq/L Potas sium 4.1 3.5 - 5.1 mEq/L C[facility] Not Available Not Available 09/06/2024 12:03:54 06/27/20 24 06/27/2024 Compr ehens calvin metab olic 2000 panel - Serum or Plasm a chloride [moles/volum e] in serum or plasma 104 text: 98 - 107 mEq/L Chlor iliana 104 98 - 107 mEq/L C[facility] R [facility] SPE[facility] Not Available Not Available 09/06/2024 12:03:54 06/27/20 24 06/27/2024 Compr ehens calvin metab olic 2000 panel - Serum or Plasm a bicarbonate [moles/volum e] in serum or plasma 27 text: 21 - 31 mEq/L Bicar bonat e 27 21 - 31 mEq/L CANCE R CENTE R SPECI ALIST S OF [facility] OIS Not Available Not Available 09/06/2024 12:03:54 06/27/20 24 06/27/2024 Compr ehens calvin metab olic 1999 panel - Serum or Plasm a bilirubin.to jessie [mass/volume ] in serum or plasma 0.7 mg/dL low: 0.3mg/ dLhigh : 1mg/dL Total Bilir ubin 0.7 0.3 - 1.0 mg/dL CANCE R CENTE R SPECI ALIST S OF [facility] OIS Not Available Not Available 09/06/2024 12:03:54 06/27/20 24 06/27/2024 Compr ehens calvin metab olic 1999 panel - Serum or Plasm a alkaline phosphatase [enzymatic activity/vol ume] in serum or plasma 93 U/L low: 34U/Lh igh: 104U/L Alk. Phosp hatas e 93 34 - 104 U/L CANCE R CENTE R SPECI ALIST S OF [facility] OIS Not Available Not Available 09/06/2024 12:03:54 06/27/20 24 06/27/2024 Compr ehens calvin metab olic 1999 panel - Serum or Plasm a aspartate aminotransfe rase [enzymatic activity/vol ume] in serum or plasma 30 U/L low: 13U/Lh igh: 39U/L Aspar salas Amino trans feras e 30 13 - 39 U/L [facility] Not Available Not Available 09/06/2024 12:03:54 06/27/20 24 06/27/2024 Compr ehens calvin metab olic 1999 panel - Serum or Plasm a alanine aminotransfe rase [enzymatic activity/vol ume] in serum or plasma 12 U/L low: 7U/Lhi gh: 52U/L Agustin ne Amino trans feras e 12 7 - 52 U/L [facility] Not Available Not Available 09/06/2024 12:03:54 06/27/20 24 06/27/2024 [facility] [employer] calvin [employer] olic 1999 panel - Serum or Plasm a protein [mass/volume ] in serum or plasma 7.4 g/dL low: 6.4g/d Lhigh: 8.9g/d L Total Prote in 7.4 6.4 - 8.9 g/dL CANCE R CENTE R SPECI ALIST S OF [facility] Not Available Not Available 09/06/2024 12:03:54 06/27/20 24 06/27/2024 [facility] [employer] ic 1999 panel - Serum or Plasm a albumin [mass/volume ] in serum or plasma by bromocresol green (bcg) dye binding method 3.3 g/dL low: 3.5g/d Lhigh: 5.7g/d L low Album in 3.3 (L) 3.5 - 5.7 g/dL C[facility] R [facility] SPE[facility] Not Available Not Available 09/06/2024 12:03:54 06/27/20 24 06/27/2024 [facility] [employer] ic 1999 panel - Serum or Plasm a calcium [mass/volume ] in serum or plasma 9.2 mg/dL low: 8.6mg/ dLhigh : 10.3mg /dL Calci um 9.2 8.6 - 10.3 mg/dL CANCE R CENTE R SPECI ALIST S OF [facility] Not Available Not Available 09/06/2024 12:03:54 06/27/20 24 06/27/2024 [facility] [employer] olic 1999 panel - Serum or Plasm a anion gap 4 in serum or plasma 14.1 text: 7.0 - 15.0 mEq/L Anion Gap 14.1 7.0 - 15.0 mEq/L CANCE R CENTE R SPECI ALIST S OF [facility] Not Available Not Available 09/06/2024 12:03:54 06/27/20 24 06/27/2024 [facility] [employer] calvin metab olic 2000 panel - Serum or Plasm a globulin [mass/volume ] in serum by calculation 4.1 g/dL low: 2g/dLh igh: 3.5g/d L high Globu tacho 4.1 (H) 2.0 - 3.5 g/dL CANCE R CENTE R SPECI ALIST S OF [facility] Not Available Not Available 09/06/2024 12:03:54 06/27/20 24 06/27/2024 Compr ehens calvin metab olic 2000 panel - Serum or Plasm a eGFR 113 text: >60 mL/min /1.73m 2 EGFR 113 >60 ml/mi n/1.7 3m2 CANCE R CENTE R SPECI ALIST S OF [facility] Not Available Not Available 09/06/2024 12:03:54 06/27/20 24 06/27/2024 Compr ehens calvin metab olic 2000 panel - Serum or Plasm a Unknown Analyte Releas e to patien t->Imm ediate IS THE PATIEN T REQUIR ED TO BE FASTIN G FOR 8 HOURS? ->No Not Available Not Available 12:03:54 06/27/20 24 06/27/2024 Compr ehens calvin metab olic 2000 panel - Serum or Plasm a interpretati on and review of laboratory results Abnorm al Not Available Not Available 12:03:54 06/27/20 24 06/27/2024 CBC W Order ed Manua l Diffe renti al panel - Blood leukocytes [#/volume] in blood by automated count 5 10*3/ uL low: 410*3/ uLhigh : 1010*3 /uL WBC 5.0 4.0 - 10.0 10*3/ uL CANCE R CENTE R SPECI ALIST S OF [facility] Not Available Not Available 09/06/2024 12:03:54 06/27/20 24 06/27/2024 CBC W Order ed Manua l Diffe renti al panel - Blood hemoglobin [mass/volume ] in blood 10.8 g/dL low: 11.2g/ dLhigh : 15.7g/ dL low HGB 10.8 (L) 11.2 - 15.7 g/dL CANCE R CENTE R SPECI ALIST S OF [facility] Not Available Not Available 09/06/2024 12:03:54 06/27/20 24 06/27/2024 CBC W Order ed Manua l Diffe renti al panel - Blood hematocrit [volume fraction] of blood by automated count 33.3 % low: 34.1%h igh: 44.9% low HCT 33.3 (L) 34.1 - 44.9 % CANCE R CENTE R SPECI ALIST S OF [facility] MIKKIIN OIS Not Available Not Available 09/06/2024 12:03:54 06/27/20 24 06/27/2024 CBC W Order ed Johnson malloy Diffe danetteti al panel - Blood platelets [#/volume] in blood by automated count 137 10*3/ uL low: 88165* 3/uLhi gh: 98748* 3/uL low PLT 137 (L) 163 - 369 10*3/ uL CANCE R CENTE R SPECI ALIST S OF [facility] OIS Not Available Not Available 09/06/2024 12:03:54 06/27/20 24 06/27/2024 CBC W Order ed Johnson samaniegoti al panel - Blood platelet mean volume [entitic volume] in blood by automated count 9.7 fL low: 9.4fLh igh: 12.4fL MPV 9.7 9.4 - 12.4 fL [facility] Not Available Not Available 09/06/2024 12:03:54 06/27/20 24 06/27/2024 CBC W Order ed Johnson romero al panel - Blood erythrocytes [#/volume] in blood by automated count 3.29 10*6/ uL low: 3.9310 *6/uLh igh: 5.2210 *6/uL low RBC 3.29 (L) 3.93 - 5.22 10*6/ uL CANCE R CENTE R SPECI ALIST S OF [facility] ILLIN OIS Not Available Not Available 09/06/2024 12:03:54 06/27/20 24 06/27/2024 CBC W Order ed Johnson Velasqueze danetteti al panel - Blood MCV [entitic volume] by automated count 101 fL low: 79fLhi gh: 95fL high MCV 101 (H) 79 - 95 fL CANCE R CENTE R SPECI ALIST S OF [facility] O[facility] Not Available Not Available 09/06/2024 12:03:54 12/10/20 24 06/27/2024 CBC W Order ed Manua l Diffe renti al panel - Blood MCH [entitic mass] by automated count 32.8 pg low: 25.6pg high: 32.2pg high MCH 32.8 (H) 25.6 - 32.2 pg CANCE R CENTE R SPECI ALIST S OF [facility] Not Available Not Available 09/06/2024 12:03:54 06/27/20 24 06/27/2024 CBC W Order ed Manua l Diffe renti al panel - Blood MCHC [mass/volume ] by automated count 32.4 g/dL low: 32.2g/ dLhigh : 36.5g/ dL MCHC 32.4 32.2 - 36.5 g/dL CANCE R CENTE R SPECI ALIST S OF [facility] Not Available Not Available 09/06/2024 12:03:54 06/27/20 24 06/27/2024 CBC W Order ed Manua l Diffe renti al panel - Blood erythrocyte distribution width [ratio] by automated count 15.1 % low: 11.6%h igh: 14.4% high RDW 15.1 (H) 11.6 - 14.4 % CANCE R CENTE R SPECI ALIST S OF [facility] OIS Not Available Not Available 09/06/2024 12:03:54 06/27/20 24 06/27/2024 CBC W Order ed Manua l Diffe renti al panel - Blood absolute neutrophil count 2912 text: cells/ uL Absol wales Neutr ophil Count 2,912 cells /uL CANCE R CENTE R SPECI ALIST S OF [facility] Not Available Not Available 09/06/2024 12:03:54 06/27/20 24 06/27/2024 CBC W Order ed Manua l Diffe renti al panel - Blood neutrophils [#/volume] in blood by manual count 2912 text: 1,440 - 6,600 cells/ uL Absol wales Seg Count 2,912 1,440 - 6,600 cells /uL CANCE R CENTE R SPECI ALIST S OF [facility] Not Available Not Available 09/06/2024 12:03:54 06/27/20 24 06/27/2024 CBC W Order ed Manua l Diffe renti al panel - Blood lymphocytes [#/volume] in blood by manual count 1255 text: 760 - 4,000 cells/ uL Absol wales Lymph Count 1,255 760 - 4,000 cells /uL CANCE R CENTE R SPECI ALIST S OF [facility] Not Available Not Available 09/06/2024 12:03:54 06/27/20 24 06/27/2024 CBC W Order ed Manua l Diffe renti al panel - Blood monocytes [#/volume] in blood by manual count 552 text: 160 - 1,200 cells/ uL Absol wales [place] Count 552 160 - 1,200 cells /uL CANCE R CENTE R SPECI ALIST S OF [facility] O[facility] Not Available Not Available 09/06/2024 12:03:54 06/27/20 24 06/27/2024 CBC W Order ed Manua l Diffe renti al panel - Blood eosinophils [#/volume] in blood by manual count 251 text: 0 - 300 cells/ uL Absol wales Eos Count 251 0 - 300 cells /uL CANCE R CENTE R SPECI ALIST S OF [facility] Not Available Not Available 09/06/2024 12:03:54 06/27/20 24 06/27/2024 CBC W Order ed Manua l Diffe renti al panel - Blood basophils [#/volume] in blood by manual count 50 text: 0 - 100 cells/ uL Absol wales Baso Count 50 0 - 100 cells /uL CANCE R CENTE R SPECI ALIST S OF [facility] Not Available Not Available 09/06/2024 12:03:54 06/27/20 24 06/27/2024 CBC W Order ed Manua l Diffe renti al panel - Blood segmented neutrophils/ 100 leukocytes in blood 58 % low: 36%hig h: 66% Segme nted Neutr ophil s 58 36 - 66 % CANCE R CENTE R SPECI ALIST S OF [facility] Not Available Not Available 09/06/2024 12:03:54 06/27/20 24 06/27/2024 CBC W Order ed Manua l Diffe renti al panel - Blood lymphocytes/ 100 leukocytes in blood by automated count 25 % low: 19%hig h: 40% Lymph ocyte s 25 19 - 40 % CANCE R CENTE R SPECI ALIST S OF [facility] ILLIN OIS Not Available Not Available 09/06/2024 12:03:54 06/27/20 24 06/27/2024 CBC W Order ed Manua l Diffe renti al panel - Blood monocytes/10 0 leukocytes in blood by automated count 11 % low: 4%high : 12% Monoc ytes 11 4 - 12 % [facility] Not Available Not Available 09/06/2024 12:03:54 06/27/20 24 06/27/2024 CBC W Order ed Manua l Diffe renti al panel - Blood eosinophils/ 100 leukocytes in blood by automated count 5 % low: 0%high : 3% high Eosin ophil s 5 (H) 0 - 3 % [facility] Not Available Not Available 09/06/2024 12:03:54 06/27/20 24 06/27/2024 CBC W Order ed Manua l Diffe renti al panel - Blood basophils/10 0 leukocytes in blood by automated count 1 % low: 0%high : 1% Basop hils 1 0 - 1 % [facility] Not Available Not Available 09/06/2024 12:03:54 06/27/20 24 06/27/2024 CBC W Order ed Manua l Diffe renti al panel - Blood WBC estimate Normal WBC Estim ate Angela l CANCE R CENTE R SPECI ALIST S OF [facility] ILLIN OIS Not Available Not Available 09/06/2024 12:03:54 06/27/20 24 06/27/2024 CBC W Order ed Manua l Diffe renti al panel - Blood platelet estimate Low Plate let Estim ate Low CANCE R CENTE R SPECI ALIST S OF [facility] ILLIN OIS Not Available Not Available 09/06/2024 12:03:54 06/27/20 24 06/27/2024 CBC W Order ed Manua l Diffe renti al panel - Blood RBC morphology Abnorm al RBC Morph ology Abnor mal CANCE R CENTE R SPECI ALIST S OF [facility] Not Available Not Available 09/06/2024 12:03:54 06/27/20 24 06/27/2024 CBC W Order ed Manua l Diffe renti al panel - Blood macrocytes [presence] in blood by light microscopy 1+ Macro cytos is 1+ CANCE R CENTE R SPECI ALIST S OF [facility] Not Available Not Available 09/06/2024 12:03:54 06/27/20 24 06/27/2024 CBC W Order ed Manua l Diffe renti al panel - Blood anisocytosis [presence] in blood by light microscopy 1+ Aniso cytos is 1+ CANCE R CENTE R SPECI ALIST S OF [facility] Not Available Not Available 09/06/2024 12:03:54 06/27/20 24 06/27/2024 CBC W Order ed Manua l Diffe renti al panel - Blood Unknown Analyte Releas e to patien t->Imm ediate Not Available Not Available 12:03:54 06/27/20 24 06/27/2024 CBC W Order ed Manua l Diffe renti al panel - Blood interpretati on and review of laboratory results Abnorm al Not Available Not Available 12:03:54 08/28/19 25 08/28/2024 COMP. METAB OLIC PANEL (14) glucose 117 mg/dL 70-99 above high normal Not Available [facility] [address] [place], [address], 08/28/2024 22:06:39 08/28/19 25 08/28/2024 COMP. METAB OLIC PANEL (14) BUN 5 mg/dL 6-24 below low normal Not Available [facility] Department [address] [place], [address], 08/28/2024 22:06:39 08/28/19 25 08/28/2024 COMP. METAB OLIC PANEL (14) creatinine 0.53 mg/dL 0.76-1 .27 below low normal Not Available [facility] Department [address] [place] [address], [id number], 08/28/2024 22:06:39 08/28/19 25 08/28/2024 COMP. METAB OLIC PANEL (14) eGFR 112 >=60 Units for eGFR value s are mL/mi n/1.7 3 The eGFR Calcu latio n has not been valid ated for patie nts under the age of 18. If test resul ts are displ ayed for a patie nt under the age of 18, disre jose that value . Not Available [facility] Department [address] [place] [address], [address], 08/28/2024 22:06:39 08/28/19 25 08/28/2024 COMP. METAB OLIC PANEL (14) BUN/creatini ne ratio 8 9-23 below low normal Not Available [facility] Department [address] [place] [address], [id number], 08/28/2024 22:06:39 08/28/19 25 08/28/2024 COMP. METAB OLIC PANEL (14) sodium 143 mmol/ L 134-[address] [facility] Department [address] [place] [address], [address], 08/28/2024 22:06:39 08/28/19 25 08/28/2024 COMP. METAB OLIC PANEL (14) potassium 4.1 mmol/ L 3.5-5. [address] [facility] [address] [place] [address], [address], 08/28/2024 22:06:39 08/28/19 25 08/28/2024 COMP. METAB OLIC PANEL (14) chloride 107 mmol/ L 96-106 above high normal Not Available [facility] [address] [place] [address], [address], 08/28/2024 22:06:39 08/28/19 25 08/28/2024 COMP. METAB OLIC PANEL (14) carbon dioxide, total 25 mmol/ L 20-[address] [facility] Department [address] [place], [address], 08/28/2024 22:06:39 08/28/19 25 08/28/2024 COMP. METAB OLIC PANEL (14) calcium 8.8 mg/dL 8.7-[address] [facility] Department [address] [place], [address], 08/28/2024 22:06:39 08/28/19 25 08/28/2024 COMP. METAB OLIC PANEL (14) protein, total 7.3 g/dL 6.0-8. [address] [facility] Department [address] [place], [address], 08/28/2024 22:06:39 08/28/19 25 08/28/2024 COMP. METAB OLIC PANEL (14) albumin 3.4 g/dL 3.8-4. 9 below low normal Not Available [facility] [address] [place], [address], 08/28/2024 22:06:39 08/28/19 25 08/28/2024 COMP. METAB OLIC PANEL (14) globulin, total 3.9 g/dL 1.5-4. [address] [facility] [address] [place], [address], 08/28/2024 22:06:39 08/28/19 25 08/28/2024 COMP. METAB OLIC PANEL (14) A/G ratio 1.0 1.2-2. 2 below low normal Not Available [facility] [address] [place], [address], 08/28/2024 22:06:39 08/28/19 25 08/28/2024 COMP. METAB OLIC PANEL (14) bilirubin, total 0.3 mg/dL 0.0-1. [address] [facility] Department [address] [place], [address], 08/28/2024 22:06:39 08/28/19 25 08/28/2024 COMP. METAB OLIC PANEL (14) alkaline phosphatase 151 IU/L 44-121 above high normal Not Available [facility] Department [address] [place], [address], 08/28/2024 22:06:39 08/28/19 25 08/28/2024 COMP. METAB OLIC PANEL (14) AST (SGOT) 30 IU/L 0-40 Not Available [facility] Department [address] [place], [address], 08/28/2024 22:06:39 08/28/19 25 08/28/2024 COMP. METAB OLIC PANEL (14) ALT (SGPT) 12 IU/L 0-32 Not Available [facility] Department [address] [place], [address], 08/28/2024 22:06:39 05/11/20 24 05/11/2024 US, doppl er, venou s No observ ation record ed. [facility] [address], [place], [address], 05/15/2024 10:46:34 09/04/19 25 09/04/2024 XR, chest , 2 view No observ ation record ed. [address] [address], [place], [address], 09/07/2024 10:05:04 09/04/19 25 09/04/2024 CT, abdom en + pelvi s, w/ contr ast No observ ation record ed. [address] [address], [place], [address], 09/07/2024 10:07:19 09/19/19 25 09/18/2024 MAMMO , scree luisito, bilat eral No observ ation record ed. [address], [address], 09/19/2024 08:04:52 Result Notes None recorded. Problems Name Problem SNOMED Code Status Onset Date Resolution Date Notes Provider Name and Address Organization Details Recorded Time Abnormal thyroid hormone 929364778 Active 2016 LILLIAM HEBERT NP Attn: Accounting ,[address] [place], [address] , [facility] 3 16:42:47 Alcoholis m 3418845 Active 2017 Quit Dajuan Wiggins MD Attn: Accounting ,[address] [place], [address] , [place] [facility] 4 12:25:44 Macrocyti c anemia 00531066 Active 2017 LILLIAM HEBERT NP Attn: Accounting ,[address] [place], [address] , [facility] 3 16:42:48 Nausea and vomiting 74206541 Active 2017 LILLIAM HEBERT NP Attn: Accounting ,[address] [place], [address] , [facility] 3 16:42:47 Fatigue 41223450 Active 2017 LILLIAM HEBERT NP Attn: Accounting ,[address] [place], [address] , [facility] 3 16:42:48 Hyperglyc emia 58691514 Active 2017 LILLIAM HEBERT NP Attn: Accounting ,[address] [place], [address] , [place] [facility] 3 16:42:48 Elevated blood-pre ssure reading without diagnosis of hypertens ion 824658939 Completed 201703/08/2018 Kristen Suárez MD Attn: Accounting ,[address] [place], [address] , [place] [facility] 8 17:50:54 Panic attack 851991496 Active 2017 LILLIAM HEBERT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 14:56:12 Essential hypertension 20124999 I10 Urinary tr act infectious disease 98018911 N39.0 Abnormal t hyroid hormone 713743987 R94.6 Asthma 910989412 J45.90 9 Tobacco de pendence syndrome 08730498 F17.200 Diarrhea 58017695 R19.7 [id number] MD Dara [facility]ion [facility] ([facility]) [address] [place] [address] 8 06/20/2018 12:08:05 06/30/2018 08:50:55 Diarrhea 25389698 R19.7 [id number] Dajuan Wiggins MD [facility] ([facility]) [address] [place] [address] 8 07/15/2018 14:25:46 07/18/2018 10:15:42 Colitis 44749175 K52.9 [id number] Dajuan Wiggins MD [facility] ([facility]) [address] [place] [address]283 8 09/19/2019 13:55:04 09/20/2019 11:55:40 Essential hypertension 33650975 I10 Dysuria 75441621 R30.9 Influenza- like symptoms 173275530 R68.89 Abnormal t hyroid hormone 774759612 R94.6 Alcoholism 3860799 F10.2 0 [id number] Tammy SCOTT [facility] ([facility]) [address] [place] [address] 8 10/17/2019 15:08:49 10/18/2019 11:51:48 Tobacco dependence syndrome 83339854 F17.200 Furunculos is of skin AND/OR subcutaneous tissue 60042049 L02.92 Sore throat 215730223 J0 2.9 Depression screening 171 762886 Z13.31 [id number] ERINN ONEIL [address] [place] [address] 11/10/2019 11:54:47 11/13/2019 07:38:01 Dyspnea 435348864 R06.00 [id number] Dajuan Wiggins MD [facility] ([facility]) [address] [place] [address] 8 04/01/2020 15:18:51 04/02/2020 08:28:17 Tobacco dependence syndrome 69777954 F17.200 Essential hypertension 64687129 I10 Anxiety disorder 1765927 06 F41.9 Chronic ob structive pulmonary disease 05772401 J44.9 Active or passive immunization 389076937 Z23 Screening for malignant neoplasm of breast 568594795 Z12.39 Hyperglycemia 39507916 R 73.9 [id number] Gloria Howard (RACEHORSE TRAINER) [address] [place] [address] 04/24/2020 10:48:22 04/25/2020 12:00:13 Gynecologic examination 58292182 Z01.419 Last pap done 03/28/18 was negative with negative hr-HPV. Therefore, no pap needed. Venereal d isease screening 545468496 Z11.3 Telephone visit one week for results. Cigarette smoker 2602587 7 F17.210 Cutting down discussed. Pt. to increase time between cigarettes to 10 min. Alcohol abuse 38744728 F 10.10 Pt. drinks a 12-pack of beer daily. She is not interested in getting help to decrease the amount of alcohol she is drinking. Availabili ty of help whenever she is ready discussed. [id number] Gloria Howard (RACEHORSE TRAINER) [address] [place] [address] 05/01/2020 07:59:56 05/06/2020 07:36:42 Candidal vulvovaginitis 16872427 B37.3 Diagnosis d/w pt. Rx sent to pharmacy. Instructio ns discussed. Venereal d isease screening 445701954 Z11.3 Vaginal culture was negative for trichomona s, dwp. STD panel was also completely negative. Individual test results dwp. Gonorrhea and chlamydia cultures still pending, dwp. [id number] Gloria Howard (RACEHORSE TRAINER) [address] [place] [address] 06/04/2020 09:13:43 06/05/2020 19:57:02 Urinary tract infectious disease 08922065 N39.0 Diagnosis d/w pt. Rx sent to pharmacy. Instructio ns discussed. If not resolved in her week, pt. to call back. Increased hydration to 96 oz per day discussed. [id number] Gloria Howard (RACEHORSE TRAINER) [address] [facility] [place] [address] 08/28/2020 10:58:49 08/31/2020 17:31:00 Vaginal irritation 513176834 N89.8 Likely vulvar irritation from intercours e and dehydratio n discussed. Pt. to continue to increase water intake. If not continuing to improve pt. to call office back for exam/urine culture, [facility]. [id number] Dajuan Wiggins MD [facility] ([facility]) [address] [place] [address] 8 09/10/2020 12:37:29 09/11/2020 13:15:11 Upper respiratory infection 20635285 J06.9 Tobacco de pendence syndrome 53153851 F17.200 Essential hypertension 43679491 I10 [id number] Dajuan Wiggins MD [facility] ([facility]) [address] [place] [address] 8 05/05/2021 11:51:43 05/07/2021 06:36:29 Essential hypertension 31192667 I10 Screening for malignant neoplasm of breast 953137601 Z12.39 Tobacco de pendence syndrome 27260262 F17.200 Hypertriglyceridemia 302 951355 E78.1 Unexplaine d weight loss 030774234 R63.4 [id number] Dajuan Wiggins MD [facility] ([facility]) [address] [place] [address] 8 06/18/2021 15:01:08 06/23/2021 06:13:49 Tobacco dependence syndrome 41983958 F17.200 Urinary tr act infectious disease 79242096 N39.0 Closed fra cture of right wrist 1331413280 7164261 S62.91XD Stress fra cture of left fibula 0084086678 1209995 M84.362D [id number] Tammy SCOTT [facility] ([facility]) [address] [place] [address] 8 07/17/2021 11:30:04 07/21/2021 04:24:14 Liver enzymes level above reference range 688742733 R74.01 Abscess of skin and/or subcutaneous tissue 26078065 L02.91 Stopped clindamyci n d/t N/V/D and weight loss and tachycardi a.Encourag ed oral re-hydrati on.Encoura ged going back to ED for symptoms of worsening infection or dehydratio n. Nausea and vomiting 1691999 R11.2 Alcoholism 8605874 F10.2 0 [id number] Dajuan Wiggins MD [facility]) [address] [place] [address] 8 08/07/2021 12:07:29 08/11/2021 23:36:13 Essential hypertension 02961250 I10 Tobacco de pendence syndrome 95339485 F17.200 Abdominal pain 33558638 R10.9 [id number] Dajuan Wiggins MD [facility]) [address] [place], [place] [address] 8 08/20/2021 09:52:50 08/21/2021 09:52:35 Liver enzymes level above reference range 661484653 R74.01 Tobacco de pendence syndrome 95203802 F17.200 Irritable bowel syndrome 48075476 K58.9 Sprain of left knee 1176 550785 7599316 S83.92XA [id number] Javad Aceves [facility] [address] [place] [address] 2 11/19/2021 14:54:35 11/21/2021 07:35:35 Chronic diarrhea of unknown origin 40878600 K52.9 Liver enzy mes level above reference range 020039907 R74.01 Alcohol dependence 90768 003 F10.20 [id number] Dajuan Wiggins MD [facility]) [address] [place], [place] [address] 8 06/02/2022 15:57:17 06/03/2022 15:32:17 Essential hypertension 40214173 I10 Urinary tr act infectious disease 35974133 N39.0 Smoker 26826939 F17.200 Screening for malignant neoplasm of breast 801776701 Z12.39 Alcoholism 7040380 F10.2 0 [id number] Dajuan Wiggins MD [facility] ([facility]) [address] [place] [address] 8 06/30/2022 11:05:55 07/01/2022 10:30:57 Urinary symptoms 306030977 R39.9 Urinary tr act infectious disease 38593465 N39.0 Smoker 45967646 F17.200 Essential hypertension 69335240 I10 [id number] Javad Aceves DO [facility] ts [address] [place] [address] 07/30/2022 14:50:06 07/31/2022 14:28:51 Diarrhea 13272541 R19.7 Liver enzy mes level above reference range 281646015 R74.01 Alcoholism 3032534 F10.2 0 continues. We talked about alcohol rehab. Not ready to stop currently Chronic di arrhea of unknown origin 13776759 K52.9 Carotene b elow reference range 356524111 R89.2 xdrink 3 glasses of Tomatoe juice or V 8 juice a day and repeat carotene after that. [id number] Dajuan Wiggins MD [facility] ([facility]) [address] [place] [address] 09/02/2022 15:45:13 09/03/2022 12:37:00 Essential hypertension 12835568 I10 Alcoholism 6055468 F10.2 0 Tobacco de pendence syndrome 00165779 F17.240 [id number] [facility] [address] [place] [address] 09/10/2022 16:26:29 09/11/2022 07:29:29 Vitamin A deficiency 60885631 E50.9 Very Low serum Carotene. Will repeat after a week of tomato Juice. If not up needs EGD and small bowel Bx. Alcoholism 0249952 F10.2 0 continues. We talked about alcohol rehab. Cutting back Tobacco de pendence syndrome 92744846 F17.200 smoking less. [id number] Dajuan Wiggins MD [facility] ([facility]) [address] [place] [address] 10/05/2022 15:27:48 10/06/2022 10:19:46 Sebaceous cyst of skin 772696274 L72.3 Essential hypertension 59898786 I10 Neck pain 17233500 M54.2 Insomnia 057967959 G47.0 0 [id number] [facility] [address] [place] [address] 2 10/29/2022 15:15:08 10/30/2022 07:30:20 Alcoholism 5963906 F10.20 continues. We talked about alcohol rehab. Cutting back Diarrhea 22705168 R19.7 Carotene b elow reference range 543517325 R89.2 xdrink 3 glasses of Tomatoe juice or V 8 juice a day and repeat carotene after that. [id number] LILLIAM HEBERT NP [facility] ([facility]) [address] [place] [address] 02/24/2023 15:48:56 03/03/2023 08:35:48 Tachycardia 0245727 R00.0 Discussed with patient tachycardi a and previous visits.Rec ommended referral to cardiology . Pt declined at this point stating that she gets anxious at [facility]. Essential hypertension 46994682 I10 Discussed with patient the goal of having a blood pressure of <140/90.Pt to monitor blood pressure at home and notify of >140/90 or <90/60.Edu cated on the risks of a heart attack, stroke, kidney damage, or additional issues if blood pressure is outside of recommende d ranges. Pt verbalized understand ing. Alcohol abuse 03659025 F 10.10 Post-disch arge follow-up 324919759 Z09 Recommende d patient take probiotics following c. diff infectionP t to also follow up in office or ER if she has any symptoms of difficulty breathing, sob, etc. [id number] Dajuan Wiggins MD [facility] [address] [place] [address] 03/10/2023 16:33:16 03/11/2023 13:48:39 Insomnia 152334793 G47.00 Essential hypertension 99632038 I10 Strain of knee 705647486 1 03 S86.911A Alcoholism 5395541 F10.2 0 Sprain of left knee 1176 252566 3883858 S83.92XA [id number] Javad Aceves, [facility] ts [address] [place] [address] 2 07/15/2023 15:21:04 07/16/2023 14:04:52 Alcoholism 4670570 F10.20 continues. We talked about alcohol rehab. Cutting back Carotene b elow reference range 949391525 R89.2 Uniform ab dominal distention 923272022 R14.0 [id number] Dajuan Wiggins MD [facility] [address] [place] [address] 07/20/2023 15:44:16 07/28/2023 10:22:03 Essential hypertension 95457989 I10 Tobacco de pendence syndrome 22373322 F17.200 Chronic ob structive pulmonary disease 85401580 J44.9 Insomnia 226688004 G47.0 0 Strain of knee 737480563 1 03 S86.911A Sprain of left knee 1176 859397 8040838 S83.92XA Screening mammography 24 480401 Z12.31 [id number] Dajuan Wiggins MD [facility] ([facility]) [address] [place] [address] 09/02/2023 12:08:14 09/03/2023 12:50:10 Alcoholism 0995377 F10.20 Essential hypertension 62784455 I10 Tobacco de pendence syndrome 83340760 F17.200 Cardiomegaly 8138641 I51 .7 [id number] Javad Aceves DO [facility] [address] [address] 09/09/2023 15:17:09 09/10/2023 11:06:16 Alcoholism 6638169 F10.20 continues. We talked about alcohol rehab. Cutting back. Still working on it. Alcoholic fatty liver 50 660375 K70.0 Chest pain 14642697 R07. 9 Tobacco de pendence syndrome 38625236 F17.200 smoking less. [id number] LILLIAM HEBERT NP [facility] ([facility]) [address] [place] [address] 09/21/2023 15:10:15 09/24/2023 13:04:20 Seen in emergency clinic 452479616 Z76.89 Plan of care:-Refe rral to pulmo due to episodes of SOB-Refer to neuro for seizure activity Alcohol abuse 22080580 F 10.10 Plan of care:-Johnny flannery in -Provide d informatio n for program at [facility] drug rehab program History of single seizure 359872762 Z86.69 Plan of care:-Foll ow up with neurology- Discussed with patient avoidance of driving until cleared by neurology Smoker 31678847 F17.200 Plan of care:-Refe r to pulmo for recent hx of SOB-Stop smoking-Us e inhaler PRN-Go to ER if worsening of symptoms occur [id number] Javad Aceves DO [facility] [address] [place] [address] 10/14/2023 15:40:51 10/15/2023 08:00:09 Carotene below reference range 749414653 R89.2 Drink Tomatoe Juice or V 8 Daily Alcoholism 9586042 F10.2 0 continues. We talked about alcohol rehab. Cutting back. Still working on it. Macrocytic anemia 179543 05 D53.9 Liver enzy mes level above reference range 662133850 R74.01 [id number] Dajuan Wiggins MD [facility] ([facility]) [address] [place] [address] 8 10/20/2023 15:39:38 10/21/2023 10:01:00 Alcoholism 8386411 F10.20 Pruritic rash 10413738 L 28.2 Essential hypertension 34053950 I10 Pitting edema 487411677 R60.9 Seizure 84186900 R56.9 probable result of alcohol withdrawal [id number] MD Dara Carrion [facility] ([facility]) [address] [place] [address] 8 11/16/2023 15:16:29 11/17/2023 12:30:54 Secondary thrombocytopenia 590894122 D69.59 Steatosis of liver 26856 1007 K76.0 Alcoholism 2717518 F10.2 0 [id number] MD Dara Carrion [facility] ([facility]) [address] [place] [address] 8 11/29/2023 16:09:30 11/30/2023 12:06:55 Bilateral hearing loss 84432115 H91.93 Infestatio n by bed bug 67356672 B88.8 Recommend having your apartment profession ally sprayed. [id number] MD Dara Carrion [facility] ([facility]) [address] [place] [address] 12/30/2023 14:48:56 12/31/2023 12:54:44 Pain of left knee joint 8107868409 78526 M25.562 Bilateral hearing loss 62890282 H91.93 [id number] PEDRITO MILLER NP [facility] (RACEHORSE TRAINER) [address] [place] [address] 12/31/2023 10:56:06 01/03/2024 15:44:15 Screening for malignant neoplasm of cervix 136669400 Z12.4 SWITCH COUPLER exam completed 1. {{Pap Pap + HPV cotesting* }} done; Last pap 03/28/2018 NILM HRHPV Negative ASCUS HRHPV Negative2. Pt is post menopausal .3. Educated on STI reduction and prevention . Encouraged condom use.4. Discussed when to return to clinic for /SWITCH COUPLER complaints . Smoker 56624398 F17.193 [id number] Javad Aceves DO [facility] [address] [place] [address] 01/13/2024 15:09:46 01/14/2024 07:22:14 Alcoholism 1117118 F10.20 continues. We talked about alcohol rehab. Cutting back. Still working on it. 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 2322603036 9109 F10.288 Carotene b elow reference range 345361179 R89.2 Drink tomato Juice or V 8 Daily [id number] Dajuan Wiggins MD [facility] (Family Med) [address] [place] [address] 02/08/2024 10:43:05 02/09/2024 11:40:54 Anemia 879655321 D64.9 Hypokalemia 90824067 E87 .6 Closed fra cture of hip 247878000 S72.001A [id number] Dajuan Wiggins MD [facility] ([facility]) [address] [place] [address] 03/09/2024 10:52:40 03/10/2024 14:38:43 Candidiasis of mouth 64290663 B37.0 Pain in ri ght hip joint 3710650158 97311 M25.551 3+ pitting edema 4838059 05 R60.9 Cellulitis 255066761 L03 .90 [id number] Javad Aceves DO [facility] [address] [place] [address] 03/30/2024 14:53:35 03/31/2024 09:25:37 Alcoholism 7439601 F10.20 Stopped 01-27-24 Macrocytic anemia 331672 05 D53.9 Carotene b elow reference range 891781398 R89.2 Drink tomato Juice or V 8 Daily 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 Chronic al coholic liver disease 184083484 K70.9 [id number] Dajuan Wiggins MD [facility] [address] [place] [address] 04/25/2024 11:12:52 04/28/2024 13:56:08 Essential hypertension 86079648 I10 Tobacco de pendence syndrome 57578365 F17.200 Pain in ri ght hip joint 7044769865 41238 M25.551 3+ pitting edema 8184539 05 R60.9 Alcoholism 9699160 F10.2 0 Candidiasis of mouth 797 58448 B37.0 Insomnia 505871267 G47.0 0 Chronic ob structive pulmonary disease 05684083 J44.9 [id number] Javad Aceves DO [facility] [address] [place] [address] 04/27/2024 14:46:40 05/01/2024 09:21:58 Alcoholism 0654043 F10.20 Stopped 01-27-24 Macrocytic anemia 164511 05 D53.9 Carotene b elow reference range 689249199 R89.2 Drink tomato Juice or V 8 Daily Chronic al coholic liver disease 788022379 K70.9 [id number] [facility] [address] [place] [address] 05/16/2024 16:53:59 05/17/2024 14:22:10 Reduced libido 2875430 R68.[address] started 3 years [...] May after she sees her PCP Smoker 20654438 F17.200 She has been reducing the amount of cigarettes she smokes, down to a pack every four days, as well as stopping drinking starting in 01/2024. [id number] Dajuan Wiggins MD [facility] ([facility]) [address] [place] [address] 05/30/2024 15:12:40 06/16/2024 13:24:51 Essential hypertension 36842665 I10 [id number] Javad Aceves DO [facility] [address] [address] 06/01/2024 14:51:54 06/02/2024 11:02:22 Alcoholism 4721709 F10.20 Stopped 02-01-24. Will continue to improve off ETOH. Tobacco de pendence syndrome 16234317 F17.200 Stopped 05-17-24 Fatigue 62590371 R53.83 persists. Liver enzy mes level above reference range 304489126 R74.01 better [id number] Dajuan Wiggins MD [facility] ([facility]) [address] [place] [address] 08/28/2024 10:58:10 09/05/2024 16:10:53 Insomnia 662830506 G47.00 Essential hypertension 21732057 I10 Tobacco de pendence syndrome 11544943 F17.200 Alcoholism 3749386 F10.2 0 Screening mammography 24 745918 Z12.31 Adult heal th examination 177294940 Z00.00 [id number] Javad Aceves DO [facility] [address] [place] [address] 08/31/2024 15:07:39 09/01/2024 07:31:36 Alcoholism 2924928 F10.20 Stopped 02-01-24. Will continue to improve off ETOH. Tobacco de pendence syndrome 82555735 F17.200 Stopped 05-17-24 Fatigue 94280128 R53.83 persists. Macrocytic anemia 067350 05 D53.9 Carotene b elow reference range 309422834 R89.2 Drink tomato Juice or V 8 Daily [id number] LILLIAM HEBERT NP [facility] ([facility]) [address] [place] [address] 09/13/2024 16:14:45 09/14/2024 09:53:22 Essential hypertension 62662499 I10 Pt blood pressure is 124/77Disc ussed with patient the goal of having a blood pressure of <140/90.Pt to monitor blood pressure at home and notify of >140/90 or <90/60.Edu cated on the risks of a heart attack, stroke, kidney damage, or additional issues if blood pressure is outside of recommende d ranges. Pt verbalized understand ing. Post-disch arge follow-up 075026331 Z09 Plan of care:-chec k labs-juana w up with Dr Aceves-betzy marcano bleeding, go to ER Pain in ri ght hip joint 0682956049 81903 M25.551 Plan of care:-refe r to occupation al therapy for functional capacity examinatio n. Pt is not currently working but previously worked at [employer]. She stated that after the hip fracture, she has difficulty standing for long periods of time.-foll ow up with orthopedic doctor Overweight 357739852 E66 .3 Pt to begin to engage in the following: -Healthy sleep hygiene (phone put away at night, lights out, set bedtime with at least 8 hours sleep)-Exe rcise 30-60 min daily-Make healthy diet choices (Mediterra nean)-Lillian sanders only water or green tea Health Concerns Section Related Observation LastModified by Organization Detai ls LastModified Time None Recorded Concern Status LastModified by Organization Details LastModified Time None Recorded Advance Directives Directive N: Payers Encounter Date Sequence Insurance Name Policy Number Policy Whatley Covered Member ID Whatley Member ID Guarantor Name 05/30/2024 1 [facility] (MEDICAID HMO) [id number] 0003 Radha Crep [id number] Radha Crep 06/01/2024 1 [facility] (MEDICAID HMO) [id number] 0003 Radha Crep [id number] Radha Crep 08/28/[address] [facility] [id number] 0003 Radha Crep [id number] Radha Crep 08/31/2024 1 [facility] (MEDICAID HMO) [id number] 0003 Radha Crep [id number] Radha Crep 09/13/2024 1 [facility] (MEDICAID HMO) [id number] 0003 Radha Crep [id number] Radha Crep Notes Date Note Type Note Provider Name and Address Organization Details Recorded Time 05/30/2024 text/html Patient is here to discuss smoking cessation, now two weeks since last cigarette. Taking wellbutrin and nicotine patch as prescribed. Complains of frequent sensation of falling since she stopped drinking alcohol 4 months ago. Dajuan Wiggins MD Attn: Accounting,[address] [place], [address], [facility] 05/30/2024 16:50:44 06/01/2024 text/html Feels OK . Still Not drinking 4 1/2 months. No tobacco in 16 days.Lab from 04-28-24 done as a out pt is noted. Better Not normal but acceptable. Feels OK. Javad Aceves, DO [address] [place], [address], [facility] 06/01/2024 15:55:06 08/28/2024 text/html Patient is here for annual, complains of 13 pound weight gain and swelling in the abdomen. Quit smoking in April. Dajuan Wiggins MD Attn: Accounting,[address] [place], [address], [facility] 08/28/2024 17:22:56 08/31/2024 text/html Stopped Smoking May 17, 2024. Stopped Alcohol January 31, 2024. Has gained weight. Feels better but tired. Javad Aceves, DO [address] [place], [address], [facility] 08/31/2024 15:57:45 09/13/2024 text/html The patient presents to the office for a follow up from her hospital admission after she was sent for a hemoglobin of 4.9mg/dl. SH received 3 blood transfusions. She endorses feeling better and denies any recent dark stools. She has stopped drinking last summer. She stated that she had a right hip fracture in January,. She completed PT and is following up with orthopedic doctor. LILLIAM HEBERT NP Attn: Accounting,[address] , [place], [address], [facility] 09/13/2024 18:15:12 OBGyn Episode Ob Episode Information Episode Created Date Number of Fetuses Patient Bloodtype Patient rh Status Prepregnancy Weight lbs Domestic Partner Domestic Partner Phone Father Name Weather Strip Mechanic Status 04/24/20 20 1 CLOSED Fetus Data First Name Last Name Admitted to NICU Weight (g) Sex Living Outcome Pediatric Complications Fetus ID Race Codes Race Delivery Type , Spontane ous 27530 Roberto Calculation Initial Roberto Date Initial Exam [...] Domestic Partner Domestic Partner Phone Father Name Weather Strip Mechanic Status 04/24/20 20 1 CLOSED Fetus Data First Name Last Name Admitted to NICU Weight (g) Sex Living Outcome Pediatric Complications Fetus ID Race Codes Race Delivery Type , Induced 72158 Roberto Calculation Initial Roberto Date Initial Exam [...] Domestic Partner Domestic Partner Phone Father Name Weather Strip Mechanic Status 04/24/20 20 1 CLOSED Fetus Data First Name Last Name Admitted to NICU Weight (g) Sex Living Outcome Pediatric Complications Fetus ID Race Codes Race Delivery Type , Induced 01406 Roberto Calculation Initial Roberto Date Initial Exam [...] Domestic Partner Domestic Partner Phone Father Name Weather Strip Mechanic Status 04/13/20 17 1 CLOSED Fetus Data First Name Last Name Admitted to NICU Weight (g) Sex Living Outcome Pediatric Complications Fetus ID Race Codes Race Delivery Type 2324.65 9 F Full Term [id number] Vaginal Roberto Calculation Initial Roberto Date Initial [...] Sterilization Discharge Date Comments 1 40 false [facility] Discharge Information Feeding Method Contraceptive Method Maternal HG B and HCT Levels
--- OUTSIDE RECORDS SUMMARY | 2024-09-20 14:55 | XMS_ITS | Clinical Summary ---
Author Organization [facility] Address [address] [place] [address] Phone Care Team Providers Care Police Liaison Name Role Phone Kristian Granda MD Primary Care Provider [phone] Adali Johnson MD Unavailable Allergies Active Allergy [...] Department Care Team Description 06/27/2024 10:15 AM PALLIATIVE CARE COORDINATOR Office Visit [facility] [address] [phone] Adali Johnson MD Thrombocytopenia (HCC) (Primary Dx); Elevated LFTs; Elevated ferritin; Other cirrhosis of liver (HCC) 06/27/2024 10:00 AM PALLIATIVE CARE COORDINATOR Lab [facility] [address] [phone] Lab, Cc [place] Elevated ferritin; Thrombocytopenia (HCC); [...] Sex Assigned at Female 09/15/2023 8:24 PM PALLIATIVE CARE COORDINATOR Legal Sex Female 8:09 PM PALLIATIVE CARE COORDINATOR Gender Identity Female 09/15/2023 8:24 PM PALLIATIVE CARE COORDINATOR Sexual Orientation Not on file Last Filed Vital Signs Vital Sign Reading Time Taken Comments Blood Pressure 130/76 06/27/2024 10:21 AM PALLIATIVE CARE COORDINATOR Pulse 90 06/27/2024 10:21 AM PALLIATIVE CARE COORDINATOR Temperature 36.7 C (98.1 F) 06/27/2024 10:21 AM PALLIATIVE CARE COORDINATOR Respiratory Rate 18 06/27/2024 10:21 AM PALLIATIVE CARE COORDINATOR Oxygen Saturation 99% 06/27/2024 10:21 AM PALLIATIVE CARE COORDINATOR Inhaled Oxygen Concentration - - Weight 61.7 kg (136 lb) 06/27/2024 10:21 AM PALLIATIVE CARE COORDINATOR Height 158.8 cm (5' 2.5 ) 06/27/2024 10:21 AM CS T Body Mass Index 24.48 06/27/2024 10:21 AM PALLIATIVE CARE COORDINATOR Plan of Treatment Upcoming Encounters Date Type Department Care Team (Late st Contact Info) Description 09/26/2024 10:00 AM CDT Lab [facility] [address] [phone] Lab, Cc [facility] 09/26/2024 10:15 AM CDT Office Visit [facility] [address] [phone] Adali Johnson MD [address] [place] [address] [id number] Health Maintenance Due Date Last Done Comments Mammogram 1973 Hepatitis B Immunization (1 of 3 - 19+ 3-dose series) 01/27/1992 Pap Smear 1994 Cervical Cancer Screening (CCS) 2003 HPV/Cotest 2003 Colonoscopy 2018 Colorectal Cancer Screening 2018 Pneumococcal Immunization (50+ years) (2 of 2 - PCV) 04/23/2019 04/23/2018 Cologuard 2023 Immunochemical Fecal Occult Blood 2023 Respiratory Syncytial Virus (RSV) Immunization (Adult) [...] Name Priority Date/Time Associated Diagnosis Comments FERRITIN [id number] [place] Routine 06/27/2024 10 :16 AM PALLIATIVE CARE COORDINATOR IRON AND TIBC [id number] [place] Routine 06/27/2024 10:16 AM PALLIATIVE CARE COORDINATOR COMPLETE BLOOD COUNT (CBC) WITH DIFF Routine 06/27/2024 10:16 AM PALLIATIVE CARE COORDINATOR Thrombocytopenia (HCC) Elevated LFTs Alcoholism (HCC) Elevated ferritin CMP (COMPREHENSIVE METABOLIC PANEL) Routine 06/27/2024 10:16 AM PALLIATIVE CARE COORDINATOR Thrombocytopenia (HCC) Elevated LFTs Alcoholism (HCC) Elevated ferritin LACTATE DEHYDROGENASE (LD) Routine 06/27/2024 10:16 AM PALLIATIVE CARE COORDINATOR Thrombocytopenia (HCC) Elevated LFTs Alcoholism (HCC) Elevated ferritin RETICULOCYTE COUNT (RETIC) Routine 06/27/2024 10:16 AM PALLIATIVE CARE COORDINATOR Elevated ferritin HEPATITIS C ANTIBODY Routine 12/15/2023 1:46 PM CDT Thrombocytopenia (HCC) from Last 3 Months or Most Recently Relevant to Health Maintenance Results * IRON AND TIBC [id number] [place] (06/27/2024 10:16 AM PALLIATIVE CARE COORDINATOR) [facility] Iron Bind.Cap.(TIBC) 272 250 - 450 UG/DL [facility] UIBC 192 131 - 425 UG/DL [facility] Iron, Serum 80 27 - 159 UG/DL [facility] Iron Saturation 29 15 - 55 % [facility] 06/27/2024 10:1 6 AM PALLIATIVE CARE COORDINATOR Narrative [facility] - 06/28/2024 1:07 PM PALLIATIVE CARE COORDINATOR TESTING PERFORMED AT: [] [facility], [address] [place] [address], [phone], PHONE: [phone], DAIRY EQUIPMENT REPAIRER: BONIFACIO MARIA, PHD us Adali Johnson MD LAB SEND OUTS Final Result [facility] [place] [address], * (ABNORMAL) FERRITIN [id number] [place] (06/27/2024 10:16 AM PALLIATIVE CARE COORDINATOR) Ferritin, Serum 165(H) 15 - 150 NG/ML [facility] 06/27/2024 10:1 6 AM PALLIATIVE CARE COORDINATOR Danilo [facility] - 06/28/2024 1:07 PM PALLIATIVE CARE COORDINATOR TESTING PERFORMED AT: [] [facility], [address] [place] [address], [place], [address], PHONE: [phone], DAIRY EQUIPMENT REPAIRER: BONIFACIO MARIA, PHD Adali Johnson MD LAB SEND OUTS Final Result Performing Organization Address [facility] Co de Phone Number [facility] Cancer Care [address] [address], * (ABNORMAL) RETICULOCYTE COUNT (RETIC) (06/27/2024 10:16 AM PALLIATIVE CARE COORDINATOR) Reticulocyte count 2.05(H) 0.50 - 1.70 % [facility] RET-He 34.90 28.20 - 36.60 pg [facility] Comment: RET-He is a direct assessment of incorporation of iron into erythrocyte hemoglobin. It provides an indirect measure of the iron available for new erythropoiesis over past 2-4 days. Blood 06/27/2024 10:1 6 AM PALLIATIVE CARE COORDINATOR [facility] - 06/27/2024 10:32 AM PALLIATIVE CARE COORDINATOR Release to patient->Immediate Adali Johnson MD HEMATOLOGY ORDERABLES Final Resu lt Performing Organization Address [facility]/ZIP Co de Phone Number [facility] Cancer Care [address] [address], * LACTATE DEHYDROGENASE (LD) (06/27/2024 10:16 AM PALLIATIVE CARE COORDINATOR) LDH 161 140 - 271 U/L [facility] Blood 06/27/2024 10:1 6 AM PALLIATIVE CARE COORDINATOR Narrative [facility] - 06/27/2024 11:15 AM PALLIATIVE CARE COORDINATOR Release to patient->Immediate us Adali Johnson MD CHEMISTRY ORDERABLES Final Resul t [facility] [place] [address], * (ABNORMAL) CMP (COMPREHENSIVE METABOLIC PANEL) (06/27/2024 10:16 AM PALLIATIVE CARE COORDINATOR) Glucose 177(H) 70 - 105 mg/dL [facility] Blood Urea Nitrogen 5(L) 7 - 25 mg/dL [facility] Creatinine 0.5(L) 0.6 - 1.2 mg/dL [facility] Sodium 141 136 - 145 mEq/L [facility] Potassium 4.1 3.5 - 5.1 mEq/L [facility] Chloride 104 98 - 107 mEq/L [facility] Bicarbonate 27 21 - 31 mEq/L [facility] Total Bilirubin 0.7 0.3 - 1.0 mg/dL [facility] Alk. Phosphatase 93 34 - 104 U/L [facility] Aspartate Aminotransferase 30 13 - 39 U/L [facility] Alanine Aminotransferase 12 7 - 52 U/L [facility] Total Protein 7.4 6.4 - 8.9 g/dL [facility] Albumin 3.3(L) 3.5 - 5.7 g/dL [facility] Calcium 9.2 8.6 - 10.3 mg/dL [facility] Anion Gap 14.1 7.0 - 15.0 mEq/L [facility] Globulin 4.1(H) 2.0 - 3.5 g/dL [facility] EGFR 113 >60 ml/min/1. 73m2 [facility] Comment: This eGFR is calculated using 2020 CKD-EPI Creatinine equation without race modifier based on the NKF-ASN task force recommendations Blood 06/27/2024 10:1 6 AM PALLIATIVE CARE COORDINATOR Narrative [facility] - 06/27/2024 11:15 AM PALLIATIVE CARE COORDINATOR Release to patient->Immediate IS THE PATIENT REQUIRED TO BE FASTING FOR 8 HOURS?->No us Adali Johnson MD CHEMISTRY ORDERABLES Final Resul t [facility] [place] [address], [place] [phone] * (ABNORMAL) COMPLETE BLOOD COUNT (CBC) WITH DIFF (06/27/2024 10:16 AM PALLIATIVE CARE COORDINATOR) WBC 5.0 4.0 - 10.0 10*3/uL [facility] HGB 10.8(L) 11.2 - 15.7 g/dL [facility] HCT 33.3(L) 34.1 - 44.9 % [facility] PLT 137(L) 163 - 369 10*3/uL [facility] MPV 9.7 9.4 - 12.4 fL [facility] RBC 3.29(L) 3.93 - 5.22 10*6/uL [facility] MCV 101(H) 79 - 95 fL [facility] MCH 32.8(H) 25.6 - 32.2 pg [facility] MCHC 32.4 32.2 - 36.5 g/dL [facility] RDW 15.1(H) 11.6 - 14.4 % [facility] Absolute Neutrophil Count 2,912 cells/uL [facility] Absolute Seg Count 2,912 1,440 - 6,600 cells/uL [facility] Absolute Lymph Count 1,255 760 - 4,000 cells/uL [facility] Absolute [place] Count 552 160 - 1,200 cells/uL [facility] Absolute Eos Count 251 0 - 300 cells/uL [facility] Absolute Baso Count 50 0 - 100 cells/uL [facility] Segmented Neutrophils 58 36 - 66 % [facility] Lymphocytes 25 19 - 40 % [facility] Monocytes 11 4 - 12 % [facility] Eosinophils 5(H) 0 - 3 % [facility] Basophils 1 0 - 1 % [facility] WBC Estimate Normal [facility] Platelet Estimate Low [facility] RBC Morphology Abnormal [facility] Macrocytosis 1+ [facility] Anisocytosis 1+ [facility] Blood 06/27/2024 10:1 6 AM PALLIATIVE CARE COORDINATOR Narrative [facility] - 06/27/2024 11:38 AM PALLIATIVE CARE COORDINATOR Release to patient->Immediate Adali Johnson MD HEMATOLOGY ORDERABLES Final Resu lt Performing Organization Address [facility] Co de Phone Number [facility] [place] [address], * HEPATITIS C ANTIBODY (12/15/2023 1:46 PM CDT) HEPATITIS C VIRUS AB SIGNAL CUTOFF NON REACTIVE NON REACTIVE [facility] HEPATITIS C VIRUS AB COMMENT [facility] Comment: NOT INFECTED WITH HCV UNLESS EARLY OR ACUTE INFECTION IS SUSPECTED (WHICH MAY BE DELAYED IN AN IMMUNOCOMPROMISED INDIVIDUAL), OR OTHER EVIDENCE EXISTS TO INDICATE HCV INFECTION. Blood 12/15/2023 1:46 PM CDT [facility] - 12/16/2023 8:08 AM CDT TESTING PERFORMED AT: [] [facility], [address] [place] [address], [address], PHONE: [phone], DAIRY EQUIPMENT REPAIRER: BONIFACIO MARIA, PHD Release to patient->Immediate Adali Johnson MD CHEMISTRY ORDERABLES Final Resul t Performing Organization Address [facility] Co de Phone Number [facility] [place] [address], from Last 3 Months or Most Recently Relevant to Health Maintenance Insurance MEDICAID [place] MED[place]ID [place] Care Teams Police Liaison Relationship Specialty Start Date End Date Kristian Granda MD [address] [place] [address] PCP - General Family Medicine 09/15/23 Adali Johnson MD [address] [place] [id number] Consulting Physician Oncology 01/18/24
--- OUTSIDE RECORDS SUMMARY | 2024-09-20 14:55 | XMS_ITS | Clinical Summary ---
Author Organization [facility] Address [address] [place] [address] Care Team Providers Care Aging Box Hand Name Role Phone Kristian Granda MD Primary Care Provider [phone] Source Comments [facility],non-owned Affiliates and Associated Physician Practices is amultiple site organization consisting of ambulatory clinics and hospital sitesin [place], [place], [place] and [place]. This disclosure is being madepursuant to the Care Everywhere program and may not contain all information available regarding this patient. Last updated 18.[facility] Allergies Active Allergy Reactions Criticality Noted Date Comments Sulfa Drugs Other High headaches Medications * Be aware that medications may not be up to date on this document. Alwaysverify current medications with the patient. Medication Sig Dispensed Refills Start Date End Date Status albuterol (PROVENTIL;VENTOLIN ) (2.5 MG/3ML) 0.083% nebulizer solution Inhale by [...] times daily Active zonisamide (Zonegran) 100 MG capsuleIndications: Seizures (HCC) Take 1 pill (100mg) nightly for 2 weeks then increase 2 pills (200mg) nightly 60 capsule 11 08/16/2024 Active Active Problems Problem Noted Date Diagnosed Date [...] infection 09/22/201710/17 Overview (10/18/2017): reports frequent UTI Encounters Date Type Department Care Team Description 09/15/2024 Telephone [facility] - Neurology [address] [place] [phone] Justina Beltre APRN-CNP Results 09/13/2024 8:27 AM TRAINING REPRESENTATIVE - 09/13/2024 11:59 PM TRAINING REPRESENTATIVE Hospital Encounter [facility] EEG/EMG [address] [place] [address] Justina Beltre APRN-CNP Discharge Disposition: Home or Self Care 09/13/2024 Travel 08/27/2024 8:24 AM TRAINING REPRESENTATIVE - 08/27/2024 11:59 PM TRAINING REPRESENTATIVE Hospital Encounter [facility] MRI [address] [place] [address] Justina Beltre APRN-CNP Discharge Disposition: Home or Self Care 08/27/2024 Travel 08/16/2024 11:00 AM TRAINING REPRESENTATIVE Office Visit [facility] - Neurology [address] [place] [phone] Justina Beltre APRN-CNP Seizures (HCC) (Primary Dx) 08/16/2024 Travel 07/06/2024 10:15 AM TRAINING REPRESENTATIVE Office Visit [facility] - Orthopedics [address] [place] [phone] Elissa Reynoso MD Adams, Karra N, AMBER Closed displaced intertrochanteric fracture of right femur with routine healing, subsequent encounter (Primary Dx) 07/06/2024 9:42 AM TRAINING REPRESENTATIVE - 07/06/2024 11:59 PM TRAINING REPRESENTATIVE Hospital Encounter [facility] DIAGNOSTIC RAD CSM [address] [place] [address] Elissa Reynoso MD Discharge Disposition: Home or Self Care 07/06/2024 Travel 06/29/2024 Orders Only [facility] - Orthopedics [address] [facility], [facility] [place] [address] Elissa Reynoso MD Closed intertrochanteric fracture of hip, right, initial encounter (HCC) from Last 3 Months Immunizations Name Administration Dates Next Due [employer] primary Monoval ent 12+ yr 0.3ml 04/25/2022,01/18/2022 [...] Recorded Patient Health Questionnaire-2 Score 0 07/06/2024 [facility] of Occupat ional [facility] - Occupational Stress Questionnaire Answer Date Recorded [...] place to sleep or slept in a chcf (including now)? No 01/28/2024 Sex and Gender Information Value Date Recorded Sex Assigned at Not on file Gender Identity Not on file Sexual Orientation Not on file Last Filed Vital Signs Vital Sign Reading Time Taken Comments Blood Pressure 122/76 08/16/2024 10:55 AM TRAINING REPRESENTATIVE Pulse 102 08/16/2024 10:55 AM TRAINING REPRESENTATIVE Temperature 36.6 C (97.8 F) 05/18/2024 3:57 PM CDT Respiratory Rate 17 05/18/2024 3:57 PM CDT Oxygen Saturation 99% 08/16/2024 10:55 AM TRAINING REPRESENTATIVE Inhaled Oxygen Concentration 60% 01/30/2024 5 :29 AM CDT Weight 64.2 kg (141 lb 8 oz) 08/16/2024 10:55 AM TRAINING REPRESENTATIVE Height 160 cm (5' 3 ) 08/16/2024 10:55 AM TRAINING REPRESENTATIVE Body Mass Index 25.07 08/16/2024 10:55 AM TRAINING REPRESENTATIVE Plan of Treatment Upcoming Encounters Date Type Department Care Team (Late st Contact Info) Description 11/30/2024 2:00 PM CDT Office Visit [facility] - Pulmonology [address] [facility] [place] [phone] Samm Barrow MD [address] [place] [address] OF PULMONARY MED [address] [place] [phone] Health Maintenance Due Date Last Done Comments [...] SCREENING 07/19/2024 03/23/2024 SCREENING FOR DIABETES 02/09/2027 4, 02/04/2024, 02/04/2024, Additional history exists DTAP/TDAP/TD VACCINES [...] this topic Medical Devices Implanted Type Area Nutrition Aide Device Identifier Shelf Expiration Date Model / Serial / Lot [id number] 11mm/130 Deg. Ti Crystal Tfna Implanted:Qty: 1 on 01/28/2024 by Elissa Reynoso MD at [facility] Right: Hip 08/18/2031 [id number] / / [id number] Tfna Fenestrated Screw 90 Mm Implanted:Qty: 1 on 01/28/2024 by Elissa Reynoso MD at [facility] Right: Hip 10/16/2033 [id number] / / [id number] 5.0 Locking Screw Implanted:Qty: 1 on 01/28/2024 by Elissa Reynoso MD at [facility] Right: Hip [id number] / / Explanted Type Area Nutrition Aide Device Identifier Shelf Expiration Date Model / Serial / Lot Bit Drl 10mm 300mm Tfn-Adv Lg Qc Crystal Explanted:Qty: 1 on 01/28/2024 at [facility] [id number] / / Procedures Procedure Name Priority Date/Time Associated Diagnosis Comments EEG EXTENDED MONITORING > 1 HOUR Routine 09/13/2024 9:51 AM TRAINING REPRESENTATIVE Seizures (HCC) MRI BRAIN WO CONTRAST Routine 08/27/2024 9:01 AM TRAINING REPRESENTATIVE Seizures (HCC) XR HIP RIGHT 2VW OR MORE Routine 07/06/2024 9:55 AM TRAINING REPRESENTATIVE Closed intertrochanteric fracture of hip, right, initial encounter (HCC) RENAL FUNCTION PANEL Routine 02/10/2024 3:32 PM CDT Hypophosphatemia from Last 3 Months or Most Recently Relevant to Health Maintenance Results * EEG EXTENDED MONITORING > 1 HOUR (09/13/2024 9:51 AM TRAINING REPRESENTATIVE) Narrative Abril Manning MD - 09/13/2024 9:51 AM TRAINING REPRESENTATIVE Abril Manning MD 09/20/2024 8:25 AM EEG REPORT Patient Name: Radha Mendoza EEG#: [id number] Start Time: 09:27 AM 09/13/2024 Stop Time: 10:32 AM 09/13/2024 Clinical History: Radha Mendoza is a 49 year old female with seizures. This EEG is ordered for seizures. Current medications MEDICATIONS FOR CURRENT ENCOUNTER: SCHEDULED MEDICATIONS: No current facility-administered medications for this encounter. CONTINUOUS MEDICATIONS: No current facility-administered medications for this encounter. PRN MEDICATIONS: No current facility-administered medications for this encounter. Description This is an extended, >1 hour 21-channel EEG tracing consisting of 20 channels of EEG obtained from electrodes placed on the scalp according to the international 10-20 system, T1 and T2 electrodes, and one channel of EKG monitoring. Background The awake background consisted of a posterior dominant rhythm of admixed theta and alpha frequency of 6-8 Hz of 15-25 microvolt. This was reactive to external stimuli. Activation Procedures Photic stimulation was performed and elicited no abnormalities. Sleep Drowsy state was identified by background attenuation and decreased myogenic artifact. EKG was observed throughout the recording. IMPRESSION This is a abnormal extended, >1 hour awake and drowsy EEG due to mild generalized slowing. Epileptiform discharges or electrographic seizures were not observed. CLINICAL CORRELATION Generalized slowing is suggestive of mild encephalopathy Silvia Richmond MD I personally interpreted the study and formulated the report. Abril Manning MD Justina Beltre [facility] NEUROLOGY [facility] * MRI Brain Wo Contrast (08/27/2024 9:01 AM TRAINING REPRESENTATIVE) Anatomical Region Laterality Modality Head Magnetic Resonan ce 08/30/2024 9:53 AM TRAINING REPRESENTATIVE Impressions 09/03/2024 2:05 PM TRAINING REPRESENTATIVE IMPRESSION: 1.There are suspected small foci of [...] report is dictated by Wilder Hyde MD (residential leasing agent) I, Trenton Dexter MD have personally reviewed and interpreted this examination/study. > Interpreting Provider: Trenton Dexter MD on 09/03/2024 2:05 PM Narrative 09/03/2024 2:05 PM TRAINING REPRESENTATIVE PROCEDURE: MRI BRAIN WO CONTRAST, DATE/TIME OF EXAM: 08/27/2024 9:01 AM, LOCATION [facility] INDICATION: R56.9: Seizures (HCC) [...] DATE/TIME OF EXAM: 08/27/2024 9:01 AM, LOCATION [facility] INDICATION: R56.9: Seizures (HCC) [...] report is dictated by Wilder Hyde MD (residential leasing agent) I, Trenton Dexter MD have personally reviewed and interpretedthis examination/study. > Interpreting Provider: Trenton Dexter MD on 09/03/2024 2:05 PM Justina Beltre HEEL BOOM OPERATOR-MORTGAGE PROCESSOR MR ORDERABLES * XR Hip Right 2Vw or More (07/06/2024 9:55 AM TRAINING REPRESENTATIVE) Anatomical Region Laterality Modality Pelvis, Lower Extremity Radiogra phic Imaging 07/06/2024 1:39 PM TRAINING REPRESENTATIVE Impressions 07/06/2024 1:41 PM TRAINING REPRESENTATIVE IMPRESSION: Overall no significant interval change in appearance of the right hip since the prior study. Report dictated by Valeria Lowry MD (residential leasing agent). > Interpreting Provider: Evelio Nunez MD on 07/06/2024 1:41 PM Narrative 07/06/2024 1:41 PM TRAINING REPRESENTATIVE PROCEDURE: XR HIP RIGHT 2VW OR MORE DATE/TIME OF EXAM: 07/06/2024 9:55 AM CLINICAL INFORMATION: None relevant/not provided if blank. Indication: S72.141A: Closed intertrochanteric fracture of hip, right, initial encounter ([facility]) Additional History: COMPARISON: Right hip [...] intertrochanteric fracture of hip, right, initial encounter ([facility]) Additional History: COMPARISON: Right hip [...] study. Report dictated by Valeria Lowry MD (residential leasing agent). > Interpreting Provider: Evelio Nunez MD on 07/06/2024 1:41 PM Elissa Reynoso MD DIAGNOSTIC IMAGING ORDERABLES * (ABNORMAL) RENAL FUNCTION PANEL (02/10/2024 3:32 PM CDT) BUN <5(L) 7 - 26 mg/dL 02/10/2024 4:57 PM [facility] Creatinine 0.29(L) 0.56 - 0.96 mg/dL 02/10/2024 4:57 PM [facility] Sodium 128(L) 136 - 145 mmol/L 02/10/2024 4:57 PM [facility] Potassium 5.1(H) 3.5 - 4.5 mmol/L 02/10/2024 4:57 PM [facility] Chloride 98 98 - 107 mmol/L 02/10/2024 4:57 PM [facility] CO2 26 22 - 29 mmol/L 02/10/2024 4:57 PM [facility] Glucose 106 70 - 115 mg/dL 02/10/2024 4:57 PM [facility] Albumin 2.5(L) 3.4 - 5.0 g/dL 02/10/2024 4:57 PM [facility] Calcium 8.3(L) 8.4 - 10.2 mg/dL 02/10/2024 4:57 PM [facility] Phosphorus 2.4(L) 2.9 - 5.1 mg/dL 02/10/2024 4:57 PM [facility] Anion Gap 4(L) 6 - 16 02/10/2024 4:57 PM [facility] BUN/Creatinine Ratio <17 7 - 23 02/10/2024 4:57 PM [facility] Osmolality Calculated <264(L) 275 - 295 mOsm/kg 02/10/2024 4:57 PM [facility] eGFR by CKD-EPI >90 >=90 mL/min/1.7 3 m2 02/10/2024 4:57 PM [facility] Blood BLOOD SPECIMEN / Unknown Lab Venipuncture / Unknown 02/10/2024 3:32 PM CDT 02/10/2024 4:27 PM CDT Ruddy Isabel MD LAB - CHEMISTRY ORDERABLES [facility] [address] [place] [address], [facility] [phone] from Last 3 Months or Most Recently Relevant to Health Maintenance Advance Directives * Full Code (Latest Code Status on File) Date Activated Date Inactivated Comments 02/04/2024 6:39 AM 02/04/2024 8:03 PM * Full Code Date Activated Date Inactivated Comments 01/28/2024 4:34 AM 01/31/2024 6:28 PM Care Teams Aging Box Hand Relationship Specialty Start Date End Date Kristian Granda MD PCP - General 08/24/18
--- OUTSIDE RECORDS SUMMARY | 2024-09-20 14:55 | XMS_ITS | Referral Summary ---
Author Organization [facility] Address [address] [facility] [place] [address] Care Team Providers Care Steam Clean Machine Operator Name Role Phone Kristian Granda MD Primary Care Provider [phone] Source Comments [facility],non-owned Affiliates and Associated Physician Practices is amultiple site organization consisting of ambulatory clinics and hospital sitesin [place], [place], [place] and [place]. This disclosure is being madepursuant to the Care Everywhere program and may not contain all information available regarding this patient. Last updated 18.[facility] Capt[employer] Encounters Date Type Department Care Team Description 09/15/2024 Telephone [facility] - Neurology [address] [place] [phone] Justina Beltre APRN-CNP Results 09/13/2024 Travel 09/13/2024 8:27 AM [employer]IER - 09/13/2024 11:59 PM [employer]IER Hospital Encounter [facility] EEG/EMG [address] [place] [address] Justina Beltre APRN-CNP Discharge Disposition: Home or Self Care 08/27/2024 Travel 08/27/2024 8:24 AM FIG CAPRIFIER - 08/27/2024 11:59 PM [employer]IER Hospital Encounter [facility] MRI [address] [place] [address] Justina Beltre APRN-CNP Discharge Disposition: Home or Self Care 08/16/2024 Travel 08/16/2024 11:00 AM FIG CAPRIFIER Office Visit [facility] - Neurology [address] [place] [phone] Justina Beltre APRN-CNP Seizures (HCC) (Primary Dx) 07/06/2024 9:42 AM FIG CAPRIFIER - 07/06/2024 11:59 PM [employer] Hospital Encounter [facility] DIAGNOSTIC RAD CSM [address] [place] [address] Elissa Reynoso MD Discharge Disposition: Home or Self Care 07/06/2024 Travel 07/06/2024 10:15 AM FIG CAPRIFIER Office Visit [facility] - Orthopedics [address] [place] [phone] Elissa Reynoso MD Adams, Karra N, APRN-DERMATOLOGY PROCEDURAL PHYSICIAN Closed displaced intertrochanteric fracture of right femur with routine healing, subsequent encounter (Primary Dx) 06/29/2024 Orders Only [facility] - Orthopedics [address] [place] [phone] Elissa Reynoso MD Closed intertrochanteric fracture of [...] UTI Immunizations Name Administration Dates Next Due [employer] primary Monoval ent 12+ yr 0.3ml 04/25/2022,01/18/2022 [...] Recorded Patient Health Questionnaire-2 Score 0 07/06/2024 [facility] of Occupat ional Health - Occupational Stress [...] place to sleep or slept in a group home (including now)? No 01/28/2024 Sex and Gender Information Value Date Recorded Sex Assigned at Not on file Gender Identity Not on file Sexual Orientation Not on file Last Filed Vital Signs Vital Sign Reading Time Taken Comments Blood Pressure 122/76 08/16/2024 10:55 AM FIG CAPRIFIER Pulse 102 08/16/2024 10:55 AM FIG CAPRIFIER Temperature 36.6 C (97.8 F) 05/18/2024 3:57 PM CDT Respiratory Rate 17 05/18/2024 3:57 PM CDT Oxygen Saturation 99% 08/16/2024 10:55 AM FIG CAPRIFIER Inhaled Oxygen Concentration 60% 01/30/2024 5 :29 AM CDT Weight 64.2 kg (141 lb 8 oz) 08/16/2024 10:55 AM FIG CAPR[employer]IER Height 160 cm (5' 3 ) 08/16/2024 10:55 AM [employer] [facility]IER Body Mass Index 25.07 08/16/2024 10:55 AM FIG [employer]IER Functional Status Functional Status Response Date of [...] Office Visit [facility] - Pulmonology [address] [place] [address], [facility] [place] [address] Samm Barrow MD [address] [place] [address] OF PULMONARY MED [address] [place] [phone] Medical Devices Implanted Type Area Residential Leasing Manager Device Identifier Shelf Expiration Date Model / Serial / Lot [id number] 11mm/130 Deg. Ti Crystal Tfna Implanted:Qty: 1 on 01/28/2024 by Elissa Reynoso MD at [facility] Right: Hip 08/18/2031 [id number] / / [id number] 04.038.190s Tfna Fenestrated Screw 90 Mm Implanted:Qty: 1 on 01/28/2024 by Elissa Reynoso MD at [facility] Right: Hip 10/16/2033 [id number] / / [id number] 04.045.032 5.0 Locking Screw Implanted:Qty: 1 on 01/28/2024 by Elissa Reynoso MD at [facility] Right: Hip 04.045.032 / / Explanted Type Area Residential Leasing Manager Device Identifier Shelf Expiration Date Model / Serial / Lot Bit Drl 10mm 300mm Tfn-Adv Lg Qc Crystal Explanted:Qty: 1 on 01/28/2024 at [facility] 03.037.021 / / Procedures Procedure Name Priority Date/Time Associated Diagnosis Comments EEG EXTENDED MONITORING > 1 HOUR Routine 09/13/2024 9:51 AM FIG CAPRIFIER Seizures (HCC) MRI BRAIN WO CONTRAST Routine 08/27/2024 9:01 AM FIG [employer]RIFIER Seizures (HCC) XR HIP RIGHT 2VW OR MORE Routine 07/06/2024 9:55 AM FIG CAPRIFIER Closed intertrochanteric fracture of hip, right, initial encounter (HCC) RENAL FUNCTION PANEL Routine 02/10/2024 3:32 PM CDT Hypophosphatemia from Last 3 Months or Most Recently Relevant to Health Maintenance Results * EEG EXTENDED MONITORING > 1 HOUR (09/13/2024 9:51 AM FIG CAPRIFIER) Narrative Abril Manning MD - 09/13/2024 9:51 AM FIG CAPRIFIER Abril Manning MD 09/20/2024 8:25 AM EEG [...] the report. Abril Manning MD Justina Beltre CONSTRUCTION TECHNICIAN-[facility] NEUROLOGY [facility] * MRI Brain Wo Contrast (08/27/2024 9:01 AM FIG CAPRIFIER) Anatomical Region Laterality Modality Head Magnetic Resonan ce 08/30/2024 9:53 AM FIG CAPRIFIER Impressions 09/03/2024 2:05 PM FIG [facility]IER IMPRESSION: 1.There are suspected small foci of [...] is dictated by Wilder Hyde MD (residential roofer helper) I, Trenton Dexter MD have personally reviewed and interpreted this examination/study. > Interpreting Provider: Trenton Dexter MD on 09/03/2024 2:05 PM Narrative 09/03/2024 2:05 PM [facility] PROCEDURE: MRI BRAIN WO CONTRAST, DATE/TIME OF EXAM: 08/27/2024 9:01 AM, LOCATION [facility] INDICATION: R56.9: Seizures (HCC) ADDITIONAL CLINICAL [...] DATE/TIME OF EXAM: 08/27/2024 9:01 AM, LOCATION [facility] INDICATION: R56.9: Seizures (HCC) ADDITIONAL CLINICAL [...] is dictated by Wilder Hyde MD (residential roofer helper) ITrenton MD have personally reviewed and interpretedthis examination/study. > Interpreting Provider: Trenton Dexter MD on 09/03/2024 2:05 PM Justinaluli Millerana GRIMESN-DERMATOLOGY PROCEDURAL PHYSICIAN MR ORDERABLES * XR Hip Right 2Vw or More (07/06/2024 9:55 AM FIG CAPRIFIER) Anatomical Region Laterality Modality Pelvis, Lower Extremity [facility] 07/06/2024 1:39 PM FIG CAPRIFIER Impressions 07/06/2024 1:41 PM [employer]IER IMPRESSION: Overall no significant interval change in appearance of the right hip since the prior study. Report dictated by Valeria Lowry MD (residential roofer helper). > Interpreting Provider: Evelio Nunez MD on 07/06/2024 1:41 PM Narrative 07/06/2024 1:41 PM [facility] PROCEDURE: XR HIP RIGHT 2VW OR MORE DATE/TIME OF EXAM: 07/06/2024 9:55 AM CLINICAL INFORMATION: None relevant/not provided if blank. Indication: S72.141A: Closed intertrochanteric fracture of hip, right, initial encounter ([facility]) Additional History: COMPARISON: Right hip radiographs [...] intertrochanteric fracture of hip, right, initial encounter ([facility]) Additional History: COMPARISON: Right hip radiographs [...] Report dictated by Valeria Lowry MD (residential roofer helper). > Interpreting Provider: Evelio Nunez MD on 07/06/2024 1:41 PM Elissa Reynoso MD DIAGNOSTIC IMAGING ORDERABLES * (ABNORMAL) RENAL FUNCTION PANEL (02/10/2024 3:32 PM CDT) BUN <5(L) 7 - 26 mg/dL 02/10/2024 4:57 PM CDT [facility] Creatinine 0.29(L) 0.56 - 0.96 mg/dL 02/10/2024 4:57 PM [facility] Sodium 128(L) 136 - 145 mmol/L 02/10/2024 4:57 PM [facility] Potassium 5.1(H) 3.5 - 4.5 mmol/L 02/10/2024 4:57 PM [facility] Chloride 98 98 - 107 mmol/L 02/10/2024 4:57 PM [facility] CO2 26 22 - 29 mmol/L 02/10/2024 4:57 PM [facility] Glucose 106 70 - 115 mg/dL 02/10/2024 4:57 PM [facility] Albumin 2.5(L) 3.4 - 5.0 g/dL 02/10/2024 4:57 PM [facility] Calcium 8.3(L) 8.4 - 10.2 mg/dL 02/10/2024 4:57 PM [facility] Phosphorus 2.4(L) 2.9 - 5.1 mg/dL 02/10/2024 4:57 PM [facility] Anion Gap 4(L) 6 - 16 02/10/2024 4:57 PM [facility] BUN/Creatinine Ratio <17 7 - 23 02/10/2024 4:57 PM [facility] Osmolality Calculated <264(L) 275 - 295 mOsm/kg 02/10/2024 4:57 PM [facility] eGFR by CKD-EPI >90 >=90 mL/min/1.7 3 m2 02/10/2024 4:57 PM [facility] Blood BLOOD SPECIMEN / Unknown Lab Venipuncture / Unknown 02/10/2024 3:32 PM CDT 02/10/2024 4:27 PM T Ruddy Isabel MD LAB - CHEMISTRY ORDERABLES [facility] [address] [place] [address], [place] [phone] from Last 3 Months or Most Recently Relevant to Health Maintenance Advance Directives * Full Code (Latest Code Status on File) Date Activated Date Inactivated Comments 02/04/2024 6:39 AM 02/04/2024 8:03 PM * Full Code Date Activated Date Inactivated Comments 01/28/2024 4:34 AM 01/31/2024 6:28 PM Care Teams Steam Clean Machine Operator Relationship Specialty Start Date End Date Kristian Granda MD PCP - General 08/24/18
--- OUTSIDE RECORDS SUMMARY | 2024-09-20 14:55 | XMS_ITS | Continuity of Care Document ---
Author Name [facility] Address [address] [place] [address] Organization [facility] Care Team Providers Care Vascular Nurse Name Role Phone [facility] Unavailable Unavailable Problems Problem Status Onset Date [...] Comments Source ibuprofen Assertion Drug allergy Active [facility] sulfa drugs Assertion Drug allergy [facility]
--- OUTSIDE RECORDS SUMMARY | 2024-09-20 14:55 | XMS_ITS | Patient Health Summary ---
Author Organization [facility] Address [address] [place] [address] Care Team Providers Care Chief Of Harbor Patrol Name Role Phone Kristian Granda MD Primary Care Provider [phone] Note from [facility] [place]note 2],non-owned Affiliates and Associated Physician Practices is amultiple site organization consisting of ambulatory clinics and hospital sitesin [place], [place] and [place]. This disclosure is being madepursuant to the Care Everywhere program and may not contain all information available regarding this patient. Last updated 18.[facility] Allergies * Sulfa Drugs(Other) -High Criticality [...] pills (200mg) nightly 11 refills by 08/16/2025 Active Problems Problem Noted Date Diagnosed Date [...] 02/26/2024 Urinary tract infection 09/22/201710/17 Immunizations * People Sports primary Monovalent 12+ yr 0.3ml(Given 04/25/2022, 01/18/2022) [...] Recorded Patient Health Questionnaire-2 Score 0 07/06/2024 [facility] of Occupat ional [facility] - Occupational Stress Questionnaire Answer Date Recorded [...] place to sleep or slept in a jail (including now)? No 01/28/2024 Sex and Gender Information Value Date Recorded Sex Assigned at Not on file Gender Identity Not on file Sexual Orientation Not on file Last Filed Vital Signs Vital Sign Reading Time Taken Comments Blood Pressure 122/76 08/16/2024 10:55 AM CARGO [facility]ATE Pulse 102 08/16/2024 10:55 AM [facility] Temperature 36.6 C (97.8 F) 05/18/2024 3:57 PM CDT Respiratory Rate 17 05/18/2024 3:57 PM CDT Oxygen Saturation 99% 08/16/2024 10:55 AM [facility] Inhaled Oxygen Concentration 60% 01/30/2024 5 :29 AM CDT Weight 64.2 kg (141 lb 8 oz) 08/16/2024 10:55 AM [facility] Height 160 cm (5' 3 ) 08/16/2024 10:55 AM [facility] Body Mass Index 25.07 08/16/2024 10:55 AM [facility] Medical Devices Implanted Type Area Plating Tank Operator Device Identifier Shelf Expiration Date Model / Serial / Lot [id number] 11mm/130 Deg. Ti Crystal Tfna Implanted:Qty: 1 on 01/28/2024 by Elissa Reynoso MD at [facility] Right: Hip 08/18/2031 [id number] / / [id number] Tfna Fenestrated Screw 90 Mm Implanted:Qty: 1 on 01/28/2024 by Elissa Reynoso MD at [facility] Right: Hip 10/16/2033 [id number] / / [id number] 5.0 Locking Screw Implanted:Qty: 1 on 01/28/2024 by Elissa Reynoso MD at [facility] Right: Hip [id number] / / Explanted Type Area Plating Tank Operator Device Identifier Shelf Expiration Date Model / Serial / Lot Bit Drl 10mm 300mm Tfn-Adv Lg Qc Crystal Explanted:Qty: 1 on 01/28/2024 at [facility] 03.037.021 / / Procedures * EEG EXTENDED MONITORING > 1 HOUR(Performed 09/13/2024) Performed for Seizures (FORMERLY [facility]) * MRI BRAIN WO CONTRAST(Performed 08/27/2024) Performed for Seizures (FORMERLY [facility]) * XR HIP RIGHT 2VW OR MORE(Performed 07/06/2024) Performed for Closed intertrochanteric fracture of hip, right, initial encounter ([facility]LY [facility]) * HOME O2 EVAL (DESATURATION SCREEN)(Performed 05/18/2024) Performed for Chronic bronchitis, unspecified chronic bronchitis type (FORMERLY [facility]) * COMPLETE PFT W/WO BRONCHODILATOR(Performed 05/18/2024) Performed for Chronic bronchitis, unspecified chronic bronchitis type ([facility]LY [facility]) * XR HIP RIGHT 2VW OR MORE(Performed 05/04/2024) Performed for Closed intertrochanteric fracture of hip, right, initial encounter ([facility]LY [facility]) * CT LUNG SCREEN LOW DOSE(Performed 03/23/2024) Performed for Tobacco use disorder * XR HIP RIGHT 2VW OR MORE(Performed 03/23/2024) Performed for Closed intertrochanteric fracture of hip, right, initial encounter ([facility]) * XR HIP RIGHT 2VW OR MORE(Performed 02/17/2024) Performed for Closed intertrochanteric fracture of hip, right, initial encounter ([facility]) * MAGNESIUM BLOOD(Performed 02/10/2024) Performed for Hypophosphatemia [...] initial encounter ([facility]LY [facility]) * IRON + TRANSFERRIN PANEL(Performed 01/29/2024) * CALCIUM IONIZED WHOLE BLOOD(Performed 01/29/2024) * PHOSPHORUS BLOOD(Performed 01/29/2024) Performed for Right hip pain, Closed intertrochanteric fracture of hip, right, initial encounter ([facility]) * MAGNESIUM BLOOD(Performed 01/29/2024) Performed for Right hip pain, Closed intertrochanteric fracture of hip, right, initial encounter ([facility]) * BASIC METABOLIC PANEL (CALCIUM TOTAL)(Performed 01/29/2024) Performed for Right hip pain, Closed intertrochanteric fracture of hip, right, initial encounter ([facility]) * TSH REFLEX FREE T4(Performed 01/29/2024) * FOLATE(Performed 01/29/2024) * VITAMIN B12(Performed 01/29/2024) * XR PELVIS W RIGHT HIP 2VW(Performed 01/28/2024) Performed for Closed intertrochanteric fracture of hip, right, initial encounter ([facility]) * BASIC METABOLIC PANEL (CALCIUM TOTAL)(Performed 01/28/2024) * FL ABEBE SURGERY(Performed 01/28/2024) Performed for Closed intertrochanteric fracture of hip, right, initial encounter ([facility]) * ENDOTRACHEAL TUBE NOTE(Performed 01/28/2024) * HI OPEN RX FEMUR FX+INTRAMED VERONIQUE(Performed 01/28/2024) Performed for Type I or II open displaced intertrochanteric fracture of right femur, initial encounter ([facility]) * BLOOD TYPE VERIFICATION(Performed 01/28/2024) * EKG 12-LEAD(Performed 01/28/2024) Performed for Right hip pain * XR HIP RIGHT 2VW OR MORE(Performed 01/28/2024) Performed for Closed intertrochanteric fracture of hip, right, initial encounter ([facility]) * XR KNEE RIGHT 2VW OR LESS(Performed 01/28/2024) Performed for Right hip pain * HCG BETA BLOOD QUANTITATIVE(Performed 01/28/2024) Performed for Closed intertrochanteric fracture of hip, right, initial encounter ([facility]) * BASIC METABOLIC PANEL (CALCIUM TOTAL)(Performed 01/28/2024) [...] 01/28/2024) Performed for Right hip pain * HI DESTRUCT BENIGN LESION, 1-14(Performed 12/22/2023) Performed for [...] Cyst of ovary, unspecified laterality Results * EEG EXTENDED MONITORING > 1 HOUR (09/13/2024 9:51 AM [facility]) Narrative Abril Manning MD - 09/13/2024 9:51 AM [facility]ATE Abril Manning MD 09/20/2024 8:25 AM EEG [...] the report. Abril Manning MD Justina Beltre [facility]DE EMILY * MRI Brain Wo Contrast (08/27/2024 9:01 AM [facility]ATE) Anatomical Region Laterality Modality Head Magnetic Resonan ce 08/30/2024 9:53 AM [facility] Impressions 09/03/2024 2:05 PM [facility] IMPRESSION: 1.There are suspected small foci of [...] is dictated by Wilder Hyde MD (radiology ct technologist) I, Trenton Dexter MD have personally reviewed and interpreted this examination/study. > Interpreting Provider: Trenton Dexter MD on 09/03/2024 2:05 PM Narrative 09/03/2024 2:05 PM [facility] PROCEDURE: MRI BRAIN WO CONTRAST, DATE/TIME OF EXAM: 08/27/2024 9:01 AM, LOCATION [facility] INDICATION: R56.9: Seizures (HCC) ADDITIONAL CLINICAL [...] DATE/TIME OF EXAM: 08/27/2024 9:01 AM, LOCATION [facility] INDICATION: R56.9: Seizures (HCC) ADDITIONAL CLINICAL [...] is dictated by Wilder Hyde MD (radiology ct technologist) ITrenton MD have personally reviewed and interpretedthis examination/study. > Interpreting Provider: Trenton Dexter MD on 09/03/2024 2:05 PM Justina Mayertino WAGE AND SALARY SPECIALIST-SECURITY ORDERLY MR ORDERABLES * XR Hip Right 2Vw or More (07/06/2024 9:55 AM [facility]ATE) Only the most recent of5 resultswithin the time period is included. Anatomical Region Laterality Modality Pelvis, Lower Extremity Radiogra [facility] 07/06/2024 1:39 PM [facility] MATE Impressions 07/06/2024 1:41 PM [facility] IMPRESSION: Overall no significant interval change in appearance of the right hip since the prior study. Report dictated by Valeria Lowry MD (radiology ct technologist). > Interpreting Provider: Evelio Nunez MD on 07/06/2024 1:41 PM Narrative 07/06/2024 1:41 PM [facility] PROCEDURE: XR HIP RIGHT 2VW OR MORE DATE/TIME OF EXAM: 07/06/2024 9:55 AM CLINICAL INFORMATION: None relevant/not provided if blank. Indication: S72.141A: Closed intertrochanteric fracture of hip, right, initial encounter (FORMERLY [facility]) Additional History: COMPARISON: Right hip radiographs dated [...] initial encounter ([facility]LY [facility]) Additional History: COMPARISON: Right hip radiographs dated [...] Report dictated by Valeria Lowry MD (radiology ct technologist). > Interpreting Provider: Evelio Nunez MD on 07/06/2024 1:41 PM Elissa Reynoso MD DIAGNOSTIC IMAGING ORDERABLES * AMBULATORY OXIMETRY (05/18/2024 3:52 PM CDT) Impressions Anoop Chew MD - 05/18/2024 3:52 PM CDT [facility] DEPARTMENT OF PULMONARY, CRITICAL CARE, AND SLEEP [...] Barrow MD Pulmonary and Critical Care Fellow, [facility] 05/19/2024 8:54 PM Attestation: I have reviewed the test data and Dr. Barrow's interpretation. I agree with the interpretation. Anoop Chew MD 05/20/2024 Narrative Anoop Chew MD - 05/18/2024 3:52 PM CDT Samm Barrow MD 05/19/2024 8:51 PM Ruddy Isabel MD RESPIRATORY THE [facility] ORDERABLES * COMPLETE PFT W/WO BRONCHODILATOR (05/18/2024 3:41 PM CDT) Impressions Anoop Chew MD - 05/18/2024 3:41 PM CDT [facility] DEPARTMENT OF PULMONARY, CRITICAL CARE, AND SLEEP [...] Barrow MD Pulmonary & Critical Care Fellow, [facility] 8:51 PM 05/19/2024 Attestation: I have reviewed the test data and Dr. Barrow's interpretation. I agree with the interpretation. Anoop Chew MD 05/20/2024 Narrative Anoop Chew MD - 05/18/2024 3:41 PM CDT Samm Barrow MD 05/19/2024 8:51 PM Ruddy Isabel MD RESPIRATORY [facility] ORDERABLES * CT LUNG CANCER SCREEN LOW [...] search: Lung-RADS Lung Cancer Screening 3) Contact [facility] thoracic nurse coordinator ([phone]) I, Earl Rose MD have personally reviewed [...] search: Lung-RADS Lung Cancer Screening 3) Contact [facility] thoracic nurse coordinator ([phone]) I, Earl Rose MD have personally reviewed and interpreted this examination/study. > Interpreting Provider: Earl Rose MD on 03/23/2024 9:59 PM [address] Isabel MD CT ORDERABLES * (ABNORMAL) RENAL FUNCTION PANEL (02/10/2024 3:32 PM CDT) Only the most recent of2 resultswithin the time period is included. BUN <5(L) 7 - 26 mg/dL 02/10/2024 4:57 PM [facility] Creatinine 0.29(L) 0.56 - 0.96 mg/dL 02/10/2024 4:57 PM [facility] Sodium 128(L) 136 - 145 mmol/L 02/10/2024 4:57 PM [facility] Potassium 5.1(H) 3.5 - 4.5 mmol/L 02/10/2024 4:57 PM [facility] Chloride 98 98 - 107 mmol/L 02/10/2024 4:57 PM [facility] CO2 26 22 - 29 mmol/L 02/10/2024 4:57 PM [facility] Glucose 106 70 - 115 mg/dL 02/10/2024 4:57 PM [facility] Albumin 2.5(L) 3.4 - 5.0 g/dL 02/10/2024 4:57 PM [facility] Calcium 8.3(L) 8.4 - 10.2 mg/dL 02/10/2024 4:57 PM [facility] Phosphorus 2.4(L) 2.9 - 5.1 mg/dL 02/10/2024 4:57 PM CDT [facility] Anion Gap 4(L) 6 - 16 02/10/2024 4:57 PM CDT [facility] BUN/Creatinine Ratio <17 7 - 23 02/10/2024 4:57 PM CDT [facility] Osmolality Calculated <264(L) 275 - 295 mOsm/kg 02/10/2024 4:57 PM CDT [facility] eGFR by CKD-EPI >90 >=90 mL/min/1.7 3 m2 02/10/2024 4:57 PM CDT [facility] Blood BLOOD SPECIMEN / Unknown Lab Venipuncture / Unknown 02/10/2024 3:32 PM CDT 02/10/2024 4:27 PM CDT Ruddy Isabel MD LAB - CHEMISTRY ORDERABLES Performing Organization Address City/[facility]/ZIP Co de Phone Number [address] [address], [facility] [phone] * MAGNESIUM BLOOD (02/10/2024 3:32 PM CDT) Only the most recent of4 resultswithin the time period is included. Magnesium 2.0 1.6 - 2.6 mg/dL 02/10/2024 4:57 PM CDT [facility] Blood BLOOD SPECIMEN / Unknown Lab Venipuncture / Unknown 02/10/2024 3:32 PM CDT 02/10/2024 4:27 PM CDT Ruddy Isabel MD LAB - CHEMISTRY ORDERABLES [address] [address], [place] [phone] * LAB RESULTS ORDER (02/10/2024 10:50 AM CDT) Narrative 02/10/2024 10:50 AM CDT Ordered by an unspecified provider. Scanned Document LAB - THERAPEUTIC DR SOTERO MONITORING ORDERABLES * CARDIAC EKG ORDER (02/07/2024 1:52 PM CDT) Only the most recent of3 resultswithin the time period is included. Narrative 02/07/2024 1:52 PM CDT Ordered by an unspecified provider. Scanned Document CARDIAC SERVICES ORD ERABLES * (ABNORMAL) PT-INR [facility] (02/04/2024 4:04 PM CDT) Only the most recent of3 resultswithin the time period is included. PT 17.7(H) 12.1 - 14.8 Seconds 02/04/2024 5:09 PM CDT [facility] INR 1.5 See Comment 02/04/2024 [...] - COAGULATION OR DERABLES Performing Organization Address City/[facility]/ZIP Co de Phone Number [address] [address], [facility] [phone] * (ABNORMAL) C-REACTIVE PROTEIN (02/04/2024 4:04 PM CDT) Only the most recent of2 resultswithin the time period is included. C-Reactive Protein 6.0(H) <=0.5 mg/dL 02/04/2024 4:37 PM CDT [facility] Blood BLOOD SPECIMEN / Unknown Venipuncture / Unknown 02/04/2024 4:04 PM CDT 02/04/2024 4:09 PM CDT Chalo Watts MD LAB - CHEMISTRY ORDMagalis DIAZ Performing Organization Address City/[facility]/ZIP Co de Phone Number [address] [place] [address], [facility] [phone] * ERYTHROCYTE SEDIMENTATION RATE (02/04/2024 4:04 PM CDT) Only the most recent of2 resultswithin the time period is included. Pathologist [facility] Erythrocyte Sedimentation Rate Westergren 6 0 - 30 MM/HR 02/04/2024 4:29 PM CDT [facility] Blood BLOOD SPECIMEN / Unknown Venipuncture / Unknown 02/04/2024 4:04 PM CDT 02/04/2024 4:09 PM CDT Chalo Watts MD LAB - HEMATOLOGY ORD ERABLES [address] [address], [facility] [phone] * (ABNORMAL) CBC W/O DIFFERENTIAL (02/04/2024 4:04 PM CDT) Only the most recent of5 resultswithin the time period is included. Pathologist [facility] WBC 8.6 4.0 - 10.7 x10E9/L 02/04/2024 5:29 PM [facility] RBC Count 2.40(L) 3.90 - 5.20 x10E12/L 02/04/2024 5:29 PM [facility] Hemoglobin 8.4(L) 11.9 - 15.8 g/dL 02/04/2024 5:29 PM [facility] Hematocrit 26.1(L) 34.8 - 46.1 % 02/04/2024 5:29 PM [facility] MCV 108.8(H) 80.0 - 98.0 fL 02/04/2024 5:29 PM [facility] MCH 35.0(H) 26.7 - 33.6 pg 02/04/2024 5:29 PM [facility] MCHC 32.2 31.7 - 36.3 g/dL 02/04/2024 5:29 PM [facility] RDW-CV 21.0(H) 11.3 - 14.8 % 02/04/2024 5:29 PM CDT [facility] Platelet Count 152 150 - 420 x10E9/L 02/04/2024 5:29 PM CDT [facility] MPV 10.6 7.8 - 11.4 fL 02/04/2024 5:29 PM CDT [facility] NRBC 0.2(H) <=0.0 /100 WBC 02/04/2024 5:29 PM CDT [facility] Blood BLOOD SPECIMEN / Unknown Venipuncture / Unknown 02/04/2024 4:04 PM CDT 02/04/2024 4:09 PM CDT Chalo Watts MD LAB - HEMATOLOGY ORD ERABLES Performing Organization Address City/[facility]/ZIP Co de Phone Number [facility] [address] [place] [address], [place] [phone] * (ABNORMAL) OSMOLALITY BLOOD (02/04/2024 4:04 PM CDT) Only the most recent of2 resultswithin the time period is included. Osmolality 265(L) 275 - 295 mOsm/kg 02/04/2024 5:11 PM CDT [facility] Blood BLOOD SPECIMEN / Unknown Venipuncture / Unknown 02/04/2024 4:04 PM CDT 02/04/2024 4:09 PM CDT Chalo Watts MD LAB - CHEMISTRY CHRISTY DIAZ Performing Organization Address City/[facility]/ZIP Co de Phone Number [facility] [address] [place] [address], [place] [phone] * XR FEMUR RIGHT 2VW (02/04/2024 1:59 [...] edema. Report dictated by Wolfgang Zabala MD (radiology ct technologist). Sidra Castaneda MD have personally reviewed and interpreted this examination/study. > Interpreting Provider: Sidra Green MD on 02/04/2024 2:21 PM Narrative 02/04/2024 2:21 PM CDT PROCEDURE: XR FEMUR RIGHT 2VW, DATE/TIME OF EXAM: 02/04/2024 2:19 PM, LOCATION [facility] INDICATION: M79.604: Right leg pain ADDITIONAL CLINICAL [...] DATE/TIME OF EXAM: 02/04/2024 2:19 PM, LOCATION [facility] INDICATION: M79.604: Right leg pain ADDITIONAL CLINICAL [...] edema. Report dictated by Wolfgang Zabala MD (radiology ct technologist). Sidra Castaneda MD have personally reviewed and interpreted this examination/study. > Interpreting Provider: Sidra Green MD on 02/04/2024 2:21 PM Chalo Watts MD DIAGNOSTIC IMAGING O RDERABLES * (ABNORMAL) BASIC METABOLIC PANEL (CALCIUM TOTAL) (02/04/2024 7:15 AM CDT) Only the most recent of4 resultswithin the time period is included. BUN <5(L) 7 - 26 mg/dL 02/04/2024 7:48 AM [facility] Creatinine 0.28(L) 0.56 - 0.96 mg/dL 02/04/2024 7:48 AM [facility] Sodium 131(L) 136 - 145 mmol/L 02/04/2024 7:48 AM [facility] Potassium 3.4(L) 3.5 - 4.5 mmol/L 02/04/2024 7:48 AM [facility] Chloride 99 98 - 107 mmol/L 02/04/2024 7:48 AM [facility] CO2 24 22 - 29 mmol/L 02/04/2024 7:48 AM [facility] Glucose 111 70 - 115 mg/dL 02/04/2024 7:48 AM [facility] Calcium 7.5(L) 8.4 - 10.2 mg/dL 02/04/2024 7:48 AM [facility] Anion Gap 8 6 - 16 02/04/2024 7:48 AM [facility] BUN/Creatinine Ratio <18 7 - 23 02/04/2024 7:48 AM [facility] Osmolality Calculated <270(L) 275 - 295 mOsm/kg 02/04/2024 7:48 AM [facility] eGFR by CKD-EPI >90 >=90 mL/min/1.7 3 m2 02/04/2024 7:48 AM [facility] Blood BLOOD SPECIMEN / Unknown Venipuncture / Unknown 02/04/2024 7:15 AM CDT 02/04/2024 7:17 AM T Aravind De Guzman MD LAB - CHEMISTRY CHRISTY Villarreal Organization Address City/State/ZIP Co de Phone Number [facility] [address] [place] [phone], [facility] [phone] * SARS-COV-2 (COVID-19) RAPID (02/04/2024 6:27 AM CDT) COVID-19 PCR Not detected Not detected 02/04/20 7:00 AM CDT [facility] Microbiology SPECIMEN FROM NASOPHARYNGEAL STRUCTURE / Unknown Collection / Unknown 02/04/2024 6:27 AM CDT 02/04/2024 6:28 AM CDT [facility] - 02/04/2024 7:00 AM CDT The [employer] Xpert Xpress SARS-COV-2 has been authorized by [...] Guzman MD LAB - MICROBIOLOGY O RDERABLES Performing Organization Address City/State/[facility] Co de Phone Number [address] [address], [facility] [phone] * MRSA DNA PCR (02/04/2024 6:27 AM CDT) MRSA DNA by PCR Not detected Not detected 02/04/2024 11:50 AM CDT [facility] Microbiology SPECIMEN FROM NASAL FOSSAE / Unknown Collection / Unknown 02/04/2024 6:27 AM CDT 02/04/2024 6:28 AM CDT Narrative [facility] - 02/04/2024 11:50 AM CDT Methicillin-resistant Staphylococcus aureus (MRSA) DNA is not detected (presumed not colonized with MRSA). Aravind De Guzman MD LAB - MICROBIOLOGY O LIZANDRO Performing Organization Address City/[facility]/ZIP Co de Phone Number [facility] [address] [place] [address], [facility] [phone] * TROPONIN-I HIGH SENSITIVE REFLEX 1HOUR (02/04/2024 4:38 AM CDT) Pathologist [facility] Troponin I High Sensitive <3 <=14 ng/L 02/04/2024 5:33 AM CDT [facility] Delta Troponin I HS 02/04/2024 5:33 AM CDT [facility] Comment:Delta value intentio lilian not calculated. Baseline to 1 hour specimen collection interval exceeded. Blood BLOOD SPECIMEN / Unknown Venipuncture / Unknown 02/04/2024 4:38 AM CDT 02/04/2024 4:42 AM CDT Lou Romero MD LAB - CHEMISTRY CHRISTY DIAZ Performing Organization Address City/[facility]/ZIP Co de Phone Number [facility] [address] [place] [address], [place] [phone] * URINALYSIS REFLEX TO MICROSCOPIC NO CULTURE (02/04/2024 4:38 AM CDT) Color UA Yellow Straw, Yellow 02/04/2024 4:48 AM CDT [facility] Clarity UA Clear Clear 02/04/2024 4:48 AM CDT [facility] Specific [place] UA 1.013 1.005 - 1.030 02/04/2024 4:48 AM CDT [facility] pH UA 7.0 5.0 - 8.0 pH 02/04/2024 4:48 AM CDT [facility] Protein UA Negative Negative 02/04/2024 4:48 AM CDT [facility] Glucose UA Negative Negative 02/04/2024 4:48 AM CDT [facility] Ketone UA Negative Negative 02/04/2024 4:48 AM CDT [facility] Bilirubin UA Negative Negative 02/04/2024 4:48 AM CDT [facility] Blood UA Negative Negative 02/04/2024 4:48 AM CDT [facility] Nitrite UA Negative Negative 02/04/2024 4:48 AM CDT [facility] Leukocyte Esterase Negative Negative 02/04/2024 4:48 AM CDT [facility] Urobilinogen UA Negative Negative mg/dL 02/04/2024 4:48 AM CDT [facility] RBC UA 0-2 None Seen, 0-2, 3-5 /HPF 02/04/2024 4:48 AM CDT [facility] WBC UA None Seen None Seen, 0-5 /HPF 02/04/2024 4:48 AM T [facility] Squamous Epithelial Cells UA 0-2 None Seen, 0-2, 3-5 /HPF 02/04/2024 4:48 AM CDT [facility] Urine URINE SPECIMEN OBTAINED BY CLEAN CATCH PROCEDURE / Unknown Collection / Unknown 02/04/2024 4:38 AM CDT 02/04/2024 4:41 AM CDT Narrative [facility] - 02/04/2024 4:48 AM CDT Lou Romero MD LAB - URINALYSIS ORD ERABLES [facility] [address] [place] [address], [facility] [phone] * STREP PNEUMONIAE ANTIGEN URINE (02/04/2024 4:38 AM CDT) Streptococcus pneumoniae Antigen Urine Negative Negative 02/05/2024 7:54 AM CDT [facility] Urine URINE / Unknown 02/04/2024 4 :38 AM CDT 02/04/2024 8:24 AM CDT Narrative [facility] - 02/05/2024 7:54 AM CDT Patients [...] hours may cause false negatives. Aravind De Guzmna MD LAB - MICROBIOLOGY O RDBeeBillionBLES Performing Organization Address City/[facility]/ZIP Co de Phone Number [facility] [address] [place] [address], [facility] [phone] * LEGIONELLA ANTIGEN URINE (02/04/2024 4:38 AM CDT) Pathologist [facility] Legionella Antigen Urine Negative Negative 02/05/2024 8:10 AM CDT [facility] Urine URINE / Unknown Collection / Unknown 02/04/2024 4:38 AM CDT 02/04/2024 4:41 AM CDT Narrative [facility] MICROBIOLOGY - 02/05/2024 8:10 AM CDT This assay detects Legionella pneumophila serogroup one (1) antigen. A negative test result does not rule out the possibility of Legionella infection due to other serogroups or species of Legionella. A positive result may indicate a recent or remote infection with serogroup 1. Lou Romero MD LAB - MICROBIOLOGY O [facility] Performing Organization Address [facility] Co de Phone Number [facility] [address] [place] [address], [facility] [phone] * (ABNORMAL) SLIDE SCAN HEMATOLOGY (02/04/2024 4:38 AM CDT) Only the most recent of2 resultswithin the time period is included. Pathologist [facility] [place] RBC Morphology REVIEWED 02/04/2024 5:45 AM CDT [facility] Polychromatic Cells MODERATE(A) (none) 02/04/2024 5:45 AM CDT [facility] Rouleaux PRESENT(A) (none) 02/04/2024 5:45 AM CDT [facility] Giant Platelets PRESENT(A) (none) 5:45 AM CDT [facility] Large Platelets PRESENT(A) (none) 5:45 AM CDT [facility] Platelet Clumps PRESENT(A) (none) 5:45 AM CDT [facility] Blood BLOOD SPECIMEN / Unknown Venipuncture / Unknown 02/04/2024 4:38 AM CDT 02/04/2024 4:42 AM CDT Lou oRmero MD LAB - HEMATOLOGY ORD ERABLES [facility] [address] [place] [address], [facility] [phone] * (ABNORMAL) CBC W AUTO DIFFERENTIAL (02/04/2024 4:38 AM CDT) Only the most recent of3 resultswithin the time period is included. WBC 9.4 4.0 - 10.7 x10E9/L 02/04/2024 5:45 AM [facility] RBC Count 2.64(L) 3.90 - 5.20 x10E12/L 02/04/2024 5:45 AM [facility] Hemoglobin 9.3(L) 11.9 - 15.8 g/dL 02/04/2024 5:45 AM [facility] Hematocrit 27.9(L) 34.8 - 46.1 % 02/04/2024 5:45 AM [facility] MCV 105.7(H) 80.0 - 98.0 fL 02/04/2024 5:45 AM [facility] MCH 35.2(H) 26.7 - 33.6 pg 02/04/2024 5:45 AM [facility] MCHC 33.3 31.7 - 36.3 g/dL 02/04/2024 5:45 AM [facility] RDW-CV 20.7(H) 11.3 - 14.8 % 02/04/2024 5:45 AM [facility] Platelet Count 02/04/2024 5:45 AM [facility] Comment:Platelets clumped on slide but appears adequate. Recommend repeat with a sodium citrate blue top tube. MPV 10.7 7.8 - 11.4 fL 02/04/2024 5:45 AM [facility] Neutrophil % 78.2(H) 41.0 - 74.0 % 02/04/2024 5:45 AM [facility] Lymphocyte % 12.9(L) 17.0 - 47.0 % 02/04/2024 5:45 AM [facility] Monocyte % 4.0 3.0 - 11.0 % 02/04/2024 5:45 AM [facility] Eosinophil % 2.0 0.0 - 7.0 % 02/04/2024 5:45 AM [facility] Basophil % 0.2 0.0 - 1.6 % 02/04/2024 5:45 AM [facility] Immature Granulocytes % 2.7(H) 0.0 - 1.0 % 02/04/2024 5:45 AM [facility] Neutrophil Absolute 7.35 1.60 - 7.50 x10E9/L 02/04/2024 5:45 AM [facility] Lymphocyte Absolute 1.21 1.00 - 4.40 x10E9/L 02/04/2024 5:45 AM [facility] Monocyte Absolute 0.38 0.15 - 1.00 x10E9/L 02/04/2024 5:45 AM [facility] Eosinophil Absolute 0.19 0.00 - 0.60 x10E9/L 02/04/2024 5:45 AM [facility] Basophil Absolute 0.02 0.00 - 0.13 x10E9/L 02/04/2024 5:45 AM [facility] NRBC 0.2(H) <=0.0 /100 WBC 02/04/2024 5:45 AM [facility] Blood BLOOD SPECIMEN / Unknown Venipuncture / Unknown 02/04/2024 4:38 AM CDT 02/04/2024 4:42 AM CDT Lou Romero MD LAB - HEMATOLOGY ORD ERABLES [address] [address], [facility] [phone] * CT ANGIO LOWER EXTREMITY RIGHT (02/04/2024 4:11 AM CDT) Anatomical Region Laterality Modality Lower Extremity Computed Tomogra phy 02/04/2024 9:1 9 AM CDT Impressions 02/04/2024 9:25 AM CDT [...] of3 resultswithin the time period is included. Pathologist [facility] [place] Ventricular Rate 99 BPM [facility] MUSE Atrial Rate 99 BPM H MUSE P-R Interval 160 ms H MUSE QRS Duration ms 92 ms H MUSE Q-T Interval ms 382 ms [facility] MUSE QTC Calculation (Bezet) 490 ms [facility] MUSE Calculated P [place] 63 degrees [facility] MUSE Calculated R [place] 86 degrees [facility] MUSE Calculated T [place] 63 degrees [facility] MUSE Interpretation EKG SINUS RHYTHM WITH PREMATURE ATRIAL COMPLEXES LOW VOLTAGE QRS PROLONGED QT ABNORMAL ECG WHEN COMPARED WITH ECG OF 28-JAN-2024 06:39, PREMATURE ATRIAL COMPLEXES ARE NOW PRESENT QRS AXIS SHIFTED RIGHT Confirmed by ELENO DEGROOT MD ([id number]) on 02/06/2024 11:07:30 AM [facility] MUSE 02/04/2024 2:26 AM CDT 02/06/2024 11:07 AM CDT Lou Romero MD ECG ORDERABLES [facility] MUSE * XR CHEST PA AND LATERAL (02/04/2024 12:06 AM CDT) Anatomical Region Laterality Modality Chest Radiographic Petrona ging 02/04/2024 9:50 AM CDT Impressions 02/04/2024 1:58 PM CDT IMPRESSION: Bilateral interstitial and airspace opacities. Considerations include pulmonary edema and/or multifocal/atypical pneumonia. Report dictated by Wolfgang Zabala MD (radiology ct technologist). I, Sidra Green MD have personally reviewed and interpreted this examination/study. > Interpreting Provider: Sidra Green MD on 02/04/2024 1:58 PM Narrative 02/04/2024 1:58 PM CDT PROCEDURE: XR CHEST 2VW, DATE/TIME OF EXAM: 02/04/2024 12:07 AM, LOCATION [facility] INDICATION: R09.02: Hypoxia ADDITIONAL CLINICAL INFORMATION: Ordering [...] DATE/TIME OF EXAM: 02/04/2024 12:07 AM, LOCATION [facility] INDICATION: R09.02: Hypoxia ADDITIONAL CLINICAL INFORMATION: Ordering [...] pneumonia. Report dictated by Wolfgang Zabala MD (radiology ct technologist). I, Sidra Green MD have personally reviewed and interpreted this examination/study. > Interpreting Provider: Sidra Green MD on 02/04/2024 1:58 PM Lou Romero MD DIAGNOSTIC IMAGING O RDERABLES * LIN DIRECT C3 (02/03/2024 11:49 PM CDT) Only the most recent of2 resultswithin the time period is included. Anti-C3 Lin POS 02/05/2024 5:46 AM CDT [facility] Comment:TESTING PERFORMED BY [facility] Blood Bank BLOOD SPECIMEN / Unknown Venipuncture / Unknown 02/03/2024 11:49 PM CDT 02/04/2024 12:05 AM CDT Letty Rosa APRN-SECURITY ORDERLY LAB - BLOOD BANK ORDERABLES Performing Organization Address City/[facility]/ZIP Co de Phone Number [facility] [address] [place] [address], [place] [phone] * LACTIC ACID BLOOD REFLEX TO REPEAT (02/03/2024 11:49 PM CDT) [facility] Lactic Acid-Stat 1.4 <=2.0 mmol/L 02/04/2024 1:55 AM CDT [facility] Blood BLOOD SPECIMEN / Unknown Venipuncture / Unknown 02/03/2024 11:49 PM CDT 02/03/2024 11:59 PM CDT Lou Romero MD LAB - CHEMISTRY CHRISTY DIAZ Performing Organization Address [facility]/ZIP Co de Phone Number [facility] [address] [place] [address], [place] [phone] * LIN DIRECT IGG (02/03/2024 11:49 PM CDT) Only the most recent of2 resultswithin the time period is included. [facility] IgG Lin POS 02/05/2024 5:46 AM CDT [facility] Comment:TESTING PERFORMED BY [facility] Blood Bank BLOOD SPECIMEN / Unknown Venipuncture / Unknown 02/03/2024 11:49 PM CDT 02/04/2024 12:05 AM CDT Letty Rosa APRN-SECURITY ORDERLY LAB - BLOOD BANK ORDERABLES Performing Organization Address City/[facility]/ZIP Co de Phone Number [facility] [address] [place] [address], [place] [phone] * TROPONIN-I HIGH SENSITIVE BASELINE + 1HR (02/03/2024 11:49 PM CDT) [facility] Troponin I High Sensitive 3 <=14 ng/L 02/04/2024 1:42 AM CDT [facility] Blood BLOOD SPECIMEN / Unknown Venipuncture / Unknown 02/03/2024 11:49 PM CDT 02/03/2024 11:59 PM CDT Lou Romero MD LAB - CHEMISTRY CHRISTY EMILY Performing Organization Address City/[facility]/ZIP Co de Phone Number [facility] [address] [place] [address], [place] [phone] * ELUTION (02/03/2024 11:49 PM CDT) Only the most recent of2 resultswithin the time period is included. Elution NEG 02/05/2024 5:47 AM CDT [facility] Comment:TESTING PERFORMED BY [facility] Blood Bank BLOOD SPECIMEN / Unknown Venipuncture / Unknown 02/03/2024 11:49 PM CDT 02/04/2024 12:05 AM CDT Letty Rosa WAGE AND SALARY SPECIALIST-SECURITY ORDERLY LAB - BLOOD BANK ORDERABLES Performing Organization Address [facility]/ZIP Co de Phone Number [facility] [address] [place] [address], [place] [phone] * CULTURE BLOOD (02/03/2024 11:49 PM CDT) Only the most recent of2 resultswithin the time period is included. Culture No growth day 5 HEAVEN 02/09/2024 2:31 AM CDT [facility] Blood PERIPHERAL BLOOD / Unknown Venipuncture / Unknown 02/03/2024 11:49 PM CDT 02/03/2024 11:58 PM CDT Lou Romero MD LAB - MICROBIOLOGY O RDERABLES [facility] [address] [place] [address], [place] [phone] * TYPE + SCREEN PANEL (02/03/2024 11:49 PM CDT) Only the most recent of2 resultswithin the time period is included. Antibody Screen POS 3:06 AM CDT [facility] ABO Rh A POS 02/04/2024 3:06 AM CDT [facility] Comment:Previously: NRD NRD 02/04/24 00:24 Blood Bank BLOOD SPECIMEN / Unknown Venipuncture / Unknown 02/03/2024 11:49 PM CDT 02/04/2024 12:05 AM CDT Letty Rosa APRN-SECURITY ORDERLY LAB - BLOOD BANK ORDERABLES [facility] [address] [place] [address], [facility] [phone] * LIN DIRECT (02/03/2024 11:49 PM CDT) Only the most recent of2 resultswithin the time period is included. Direct Lin (NITESH) POS 02/11/2024 6:33 PM CDT [facility] Blood Bank BLOOD SPECIMEN / Unknown Venipuncture / Unknown 02/03/2024 11:49 PM CDT 02/04/2024 12:05 AM CDT Letty Rosa APRN-SECURITY ORDERLY LAB - BLOOD BANK ORDERABLES [facility] [address] [place] [address], [place] [phone] * ANTIBODY IDENTIFICATION (02/03/2024 11:49 PM CDT) Only the most recent of2 resultswithin the time period is included. Antibody 1 POS, Cold Auto Antibody 02/05/2024 5:45 AM CDT [facility] Comment:TESTING PERFORMED BY [employer] [facility] Blood Bank BLOOD SPECIMEN / Unknown Venipuncture / Unknown 02/03/2024 11:49 PM CDT 02/04/2024 12:05 AM CDT Letty Rosa APRN-SECURITY ORDERLY LAB - BLOOD BANK ORDERABLES [facility] [address] [place] [address], [facility] [phone] * (ABNORMAL) COMPREHENSIVE METABOLIC PANEL (02/03/2024 11:[address] [facility]) Only the most recent of4 resultswithin the time period is included. BUN <5(L) 7 - 26 mg/dL 02/04/2024 1:44 AM [facility] Creatinine 0.29(L) 0.56 - 0.96 mg/dL 02/04/2024 1:44 AM [facility] Sodium 123(LL) 136 - 145 mmol/L 02/04/2024 1:44 AM [facility] Potassium 3.0(L) 3.5 - 4.5 mmol/L 02/04/2024 1:44 AM [facility] Chloride 92(L) 98 - 107 mmol/L 02/04/2024 1:44 AM [facility] CO2 22 22 - 29 mmol/L 02/04/2024 1:44 AM [facility] Glucose 123(H) 70 - 115 mg/dL 02/04/2024 1:44 AM [facility] Calcium 8.0(L) 8.4 - 10.2 mg/dL 02/04/2024 1:44 AM [facility] Protein Total 6.1 6.0 - 8.3 g/dL 02/04/2024 1:44 AM [facility] Albumin 2.4(L) 3.4 - 5.0 g/dL 02/04/2024 1:44 AM [facility] Bilirubin Total 4.0(H) 0.2 - 1.2 mg/dL 02/04/2024 1:44 AM [facility] Alkaline Phosphatase 313(H) 40 - 150 U/L 02/04/2024 1:44 AM [facility] ALT 23 5 - 55 U/L 02/04/2024 1:44 AM [facility] AST 83(H) 5 - 34 U/L 02/04/2024 1:44 AM CDT [facility] Anion Gap 9 6 - 16 02/04/2024 1:44 AM CDT [facility] BUN/Creatinine Ratio <17 7 - 23 02/04/2024 1:44 AM CDT [facility] Osmolality Calculated <255(L) 275 - 295 mOsm/kg 02/04/2024 1:44 AM CDT [facility] Albumin/Globulin Ratio 0.6(L) 1.1 - 2.3 02/04/2024 1:44 AM CDT [facility] eGFR by CKD-EPI >90 >=90 mL/min/1.7 3 m2 02/04/2024 1:44 AM CDT [facility] Blood BLOOD SPECIMEN / Unknown Venipuncture / Unknown 02/03/2024 11:49 PM CDT 02/03/2024 11:59 PM CDT Lou Romero MD LAB - CHEMISTRY CHRISTY DIAZ [facility] Organization Address City/State/ZIP Co de Phone Number [address] [address], [facility] [phone] * PREPARE (CROSSMATCH) RBC UNIT(S), 2 Units (02/01/2024 1:17 AM CDT) Unit Description AS1 LR PRBC [facility] Unit ABO A [facility] Unit Rh POS [facility] Product Number R02 [facility] B LOOD BANK LAB Unit Donor # [id number] [facility] Unit Status released [facility] BLOO D BANK LAB Product Code [id number] [facility] OD BANK LAB Blood Type Barcode 6200 [facility] Expiration Date S BLOOD BANK LAB Unit Description AS1 LR PRBC [facility] Unit ABO A [facility] Unit Rh POS [facility] Product Number R02 [facility] B LOOD BANK LAB Unit Donor # [id number] [facility] Unit Status released [facility] BLOO D [facility] Product Code [id number] [facility] BLO OD BANK LAB Blood Type Barcode 6200 [facility] Expiration Date S BLOOD BANK LAB Blood Bank BLOOD SPECIMEN / Unknown 01/28/2024 4:12 AM CDT Melo Santillan MD LAB - BLOOD BANK ORD ERABLES [facility] [address] [place] [address], [place] [phone] * (ABNORMAL) GLUCOSE - POINT OF CARE (01/31/2024 8:39 AM CDT) Only the most recent of2 resultswithin the time period is included. Glucose WB/POC 210(H) 70 - 115 mg/dL 01/31/2024 8:44 AM CDT [facility] Specimen Type Arterial 01/31/2024 8:44 AM CDT [facility] Blood BLOOD SPECIMEN / Unknown 01/31/2024 8:39 AM CDT 01/31/2024 8:44 AM CDT Sherrie Marie MD LAB - POINT OF CARE ORDERABLES Performing Organization Address [facility]/ZIP Co de Phone Number [facility] [address] [place] [address], [place] [phone] * (ABNORMAL) PHOSPHORUS BLOOD (01/30/2024 6:20 AM CDT) Only the most recent of2 resultswithin the time period is included. Phosphorus 1.8(L) 2.9 - 5.1 mg/dL 01/30/2024 7:18 AM CDT [facility] Blood BLOOD SPECIMEN / Unknown Lab Venipuncture / Unknown 01/30/2024 6:20 AM CDT 01/30/2024 6:52 AM CDT Sherrie Marie MD LAB - CHEMISTRY CHRISTY DIAZ Performing Organization Address City/[facility]/ZIP Co de Phone Number [facility] [address] [place] [address], [place] [phone] * CT ANGIO CHEST PULM EMBOLISM (01/29/2024 7:10 AM CDT) Anatomical Region Laterality Modality Chest Computed Tomogra phy 01/29/2024 7:27 AM CDT Impressions 01/29/2024 4:30 PM CDT Impression: 1.No evidence of acute pulmonary embolism. 2.Consolidative changes and groundglass opacities involving both lung bases and to a lesser extent the upper lobes likely representing pneumonia/aspiration. > Dictated by Demetrio Radford MD, PhD (radiology ct technologist) IRamsey have personally reviewed and interpreted this examination/study. > Interpreting Provider: Ramsey Matos on 01/29/2024 4:30 PM Narrative 01/29/2024 4:30 PM CDT PROCEDURE: CT ANGIO CHEST PULM EMBOLISM, DATE/TIME OF EXAM: 01/29/2024 7:11 AM, LOCATION [facility] INDICATION: R09.02: Hypoxia ADDITIONAL CLINICAL INFORMATION: Ordering [...] DATE/TIME OF EXAM: 01/29/2024 7:11 AM, LOCATION [facility] INDICATION: R09.02: Hypoxia ADDITIONAL CLINICAL INFORMATION: Ordering [...] > Dictated by Demetrio Radford MD, PhD (radiology ct technologist) IRamsey have personally reviewed and interpreted this [...] Calcium Ionized 1.06 mmol/L 01/29/2024 5:31 AM CDT [facility] pH 7.31(L) 7.35 - 7.45 pH 01/29/2024 5:31 AM CDT [facility] Ionized Calcium pH Adjusted 1.02(L) 1.19 - 1.34 mmol/L 01/29/2024 5:31 AM CDT [facility] Blood BLOOD SPECIMEN / Unknown Lab Venipuncture / Unknown 01/29/2024 4:53 AM CDT 01/29/2024 5:28 AM CDT Gabbie Olivier DO LAB - CHEMISTRY ORDMagalis DIAZ Performing Organization Address [facility]/State/ZIP Co de Phone Number [facility] [address] [place] [address], [facility] [phone] * (ABNORMAL) IRON + TRANSFERRIN PANEL (01/29/2024 4:53 AM CDT) Iron 68 40 - 150 ug/dL 01/29/2024 5:55 AM CDT [facility] Transferrin 152(L) 174 - 382 mg/dL 01/29/2024 5:55 AM CDT [facility] Transferrin Saturation % 36 16 - 50 % 01/29/2024 5:55 AM CDT [facility] TIBC Calculated 190(L) 240 - 450 ug/dL 01/29/2024 5:55 AM CDT [facility] Blood BLOOD SPECIMEN / Unknown Lab Venipuncture / Unknown 01/29/2024 4:53 AM CDT 01/29/2024 5:28 AM CDT Gabbie Olivier DO LAB - CHEMISTRY ORDMagalis DIAZ Performing Organization Address City/[facility]/ZIP Co de Phone Number [address] [address], [place] [phone] * TSH REFLEX FREE T4 (01/29/2024 4:52 AM CDT) TSH 3.308 0.350 - 4.940 uIU/mL 01/29/2024 6:35 AM CDT [facility] Blood BLOOD SPECIMEN / Unknown Lab Venipuncture / Unknown 01/29/2024 4:52 AM CDT 01/29/2024 5:33 AM CDT Gabbie Magalis Olivier DO LAB - CHEMISTRY ORDE EMILY Performing Organization Address [facility]/ZIP Co de Phone Number [address] [address], [place] [phone] * FOLATE (01/29/2024 4:52 AM CDT) Folate 12.6 7.0 - 31.4 ng/mL 01/29/2024 6:35 AM CDT [facility] Blood BLOOD SPECIMEN / Unknown Lab Venipuncture / Unknown 01/29/2024 4:52 AM CDT 01/29/2024 5:33 AM CDT Gabbie Olivier DO LAB - CHEMISTRY ORDMagalis MILLERNEERU Performing Organization Address [facility]/ZIP Co de Phone Number [address] [address], [place] [phone] * VITAMIN B12 (01/29/2024 4:52 AM CDT) Vitamin B12 393 213 - 816 pg/mL 01/29/2024 6:35 AM CDT [facility] Blood BLOOD SPECIMEN / Unknown Lab Venipuncture / Unknown 01/29/2024 4:52 AM CDT 01/29/2024 5:33 AM CDT Gabbie Olivier DO LAB - CHEMISTRY ORDE EMILY [facility] [address] [place] [address], [facility] [phone] * XR PELVIS W RIGHT HIP 2VW [...] initial encounter ([facility]) Additional History: COMPARISON: None. TECHNIQUE: 3 views [...] initial encounter ([facility]) Additional History: COMPARISON: None. TECHNIQUE: 3 views [...] ABEBE SURGERY (01/28/2024 11:44 AM CDT) Narrative [facility] - 01/28/2024 11:44 AM CDT Fluoroscopy was used for this exam in the OR. Please see the Operative report. Elissa Reynoso MD FLUOROSCOPY ORDERAB LES [facility] * ETT LINE PERFORMABLE (01/28/2024 10:54 AM CDT) Narrative Johnna Beckford APRN-CRNA - 01/28/2024 10:54 AM CDT Johnna Beckford APRN-CRNA 01/28/2024 10:54 AM Endotracheal Tube Placement: Patient Location: OR. Intubation Event Date/Time: 01/28/2024 10:28 AM Procedure: intubation ([id number]) Procedure Section: Sedation: under general anesthesia. Indications [...] AM. Staff Section Anesthesia Provider: Johnna Beckford APRN-CRNA, Performed the procedure Provider #1: Cristina Herbert MD. Cristina Herbert MD GENERAL ANESTHESIA O RDERABLES * BLOOD TYPE VERIFICATION (01/28/2024 8:53 AM CDT) ABO Rh A POS 01/28/2024 9:5 7 AM CDT [facility] Blood Bank BLOOD SPECIMEN / Unknown Venipuncture / Unknown 01/28/2024 8:53 AM CDT 01/28/2024 9:19 AM CDT Melo Santillan MD LAB - BLOOD BANK ORD ERABLES [facility] [address] [place] [address], [facility] [phone] * XR KNEE RIGHT 2VW OR LESS (01/28/2024 5:56 AM CDT) Only the most recent of2 resultswithin the time period is included. Anatomical Region Laterality Modality Lower Extremity Radiographic Petrona ging 01/28/2024 5:56 AM CDT Narrative 01/28/2024 7:58 AM CDT EXAMINATION: XR KNEE RIGHT 2VW OR LESS DATE/TIME OF EXAM: 01/28/2024 5:56 AM, LOCATION [facility] HISTORY: M25.551: Right hip pain traction COMPARISON: No prior study is available for comparison. FINDINGS/IMPRESSION: A traction pin has been placed through the proximal shaft of the tibia. No acute fracture or dislocation. The knee joint space is preserved. No joint effusion is seen. Bone density and texture are normal. No significant soft tissue swelling is present. Report dictated by Colby Vázquez MD (radiology ct technologist). Jeannie Castaneda MD have personally reviewed and interpreted this examination/study. > Interpreting Provider: Jeannie Gracia MD on 01/28/2024 7:58 AM Procedure Note Jeannie Gracia MD - 01/28/2024 EXAMINATION: XR KNEE RIGHT 2VW OR LESS DATE/TIME OF EXAM: 01/28/2024 5:56 AM, LOCATION [facility] HISTORY: M25.551: Right hip pain traction COMPARISON: No prior study is available for comparison. FINDINGS/IMPRESSION: A traction pin has been placed through the proximal shaft of the tibia. No acute fracture or dislocation. The knee joint space is preserved. No joint effusion is seen. Bone density and texture are normal. Nosignificant soft tissue swelling is present. Report dictated by Colby Vázquez MD (radiology ct technologist). Jeannie Castaneda MD have personally reviewed and interpreted this examination/study. > Interpreting Provider: Jeannie Gracia MD on 01/28/2024 7:58 AM Melo Santillan MD DIAGNOSTIC IMAGING O RDERABLES * HCG BETA BLOOD QUANTITATIVE (01/28/2024 5:16 AM CDT) [facility] Beta-hCG Total Quantitative <3 mIU/mL 01/28/2024 9:14 AM CDT [facility] Comment: HCG Numeric Result Interpretation: Non- [...] CDT 01/28/2024 5:21 AM CDT Neda Thorpe APRN-SECURITY ORDERLY LAB - CHEMI STRY ORDERABLES [address] [address], [place] [phone] * (ABNORMAL) PTT [facility] (01/28/2024 3:56 AM CDT) [facility] APTT 47.4(H) 23.0 - 38.4 Seconds 01/28/2024 4:33 AM CDT [facility] Comment:Suggested therapeuti c range for full dose I.V. unfractionated heparin therapy for venous thromboembolism is 71 to 109 seconds. Blood BLOOD SPECIMEN / Unknown Venipuncture / Unknown 01/28/2024 3:56 AM CDT 01/28/2024 4:08 AM CDT Melo Santillan MD LAB - COAGULATION OR DERABLES [address] [address], [place] [phone] * HEMOGLOBIN A1C (01/28/2024 3:56 AM CDT) Hemoglobin A1c 4.6 <=5.6 % 01/28/2024 8:50 AM T [facility] Estimated Average Glucose 85 mg/dL 01/28/2024 8:50 AM [facility] Comment: HbA1c Interpretation: Normal : < 5.7% Pre-diabetes: 5.7-6.4% Diabetes: Equal to or greater than 6.5% Test results diagnostic of diabetes should be repeated for confirmation. Treatment target values recommended by ADA and other clinical organizations should be used to evaluate metabolic control in patients. Reference: [place] [employer], Standards of Care in Diabetes -2020 In patients 70 years and older consider HbA1c target range of 7.0-7.5% (Reference: Wong Amor et al. JAMDA. 2012) The [employer] assay for the measurement of HbA1c is a National Glycohemoglobin Standardization Program (NGSP) certified method. Blood BLOOD SPECIMEN / Unknown Venipuncture / Unknown 01/28/2024 3:56 AM CDT 01/28/2024 4:08 AM CDT Melo Santillan MD LAB - CHEMISTRY CHRISTY DIAZ [facility] Organization Address City/State/ZIP Co de Phone Number [address] [address], [facility] [phone] * (ABNORMAL) VITAMIN D 25-HYDROXY (01/28/2024 3:56 AM CDT) Vitamin D, 25 Hydroxy 5.5(L) 30.0 - [...] CDT Melo Santillan MD LAB - CHEMISTRY DENAMagalis EMILY [facility] Organization Address City/State/ZIP Co de Phone Number [facility] [address] [place] [address], [facility] [phone] * XR STRESS ANY JOINT (01/28/2024 3:07 [...] angulation. Report dictated by Colby Vázquez MD (radiology ct technologist). Jeannie Castaneda MD have personally reviewed and [...] angulation. Report dictated by Colby Vázquez MD (radiology ct technologist). Jeannie Castaneda MD have personally reviewed and [...] angulation. Report dictated by Colby Vázquez MD (radiology ct technologist). IJeannie MD have personally reviewed and interpreted this examination/study. > Interpreting Provider: Jeannie Gracia MD on 01/28/2024 7:09 AM Narrative 01/28/2024 7:09 AM CDT EXAMINATION: XR PELVIS 1 OR 2VW DATE/TIME OF EXAM: 01/28/2024 2:48 AM, LOCATION [facility] HISTORY: M25.551: Right hip pain poor positioning [...] DATE/TIME OF EXAM: 01/28/2024 2:48 AM, LOCATION [facility] HISTORY: M25.551: Right hip pain poor positioning [...] angulation. Report dictated by Colby Vázquez MD (radiology ct technologist). I, Jeannie Gracia MD have personally reviewed and interpreted this examination/study. > Interpreting Provider: Jeannie Gracia MD on 01/28/2024 7:09 AM Melo Santillan MD DIAGNOSTIC IMAGING O RDERABLES * HI DESTRUCT BENIGN LESION, 1-14 (12/22/2023 1:14 PM CDT) Narrative Nando Eugene MD - 12/22/2023 1:14 PM CDT Navin Ruffin MD 12/22/2023 1:15 PM Diagnosis and treatment options discussed. Cryotherapy (Liquid Nitrogen) to 1 lesion(s) for 10 seconds. Number of cycles: 1-2. Wound care reviewed. Locations: [facility] Navin Ruffin MD Dermatology PGY-4 Nando Eugene MD PROCEDURE/MINOR SURG ICAL ORDERABLES * CALPROTECTIN FECAL (09/02/2018 8:00 AM CARGO MATE) Calprotectin Fecal <16 0 - 120 ug/g [facility] INSURANCE BILL Comment: Concentration Interpretation Follow-Up <16 - 50 ug/g Normal None >50 -120 ug/g Borderline Re-evaluate in 4-6 weeks >120 ug/g Abnormal Repeat as clinically indicated Stool STOOL SPECIMEN / Unknown 09/02/2018 8:00 AM CARGO MATE 09/02/2018 Narrative Resulting Agency Comment [address] [id number] Virginia Reardon PA-C LAB - BODY FLUID ORDERABLES [facility] INSURANCE BILL [address] [place] [address] * PANCREATIC ELASTASE FECES (09/02/2018 8:00 AM CARGO MATE) Pancreatic Elastase Feces >500 >200 ug Elast./g [facility] INSURANCE BILL Comment: Severe Pancreatic Insufficiency: <100 Moderate Pancreatic Insufficiency: 100 - 200 Normal: >200 09/02/2018 8:00 AM CARGO MATE 09/02/2018 Narrative Resulting Agency Comment [facility] [address] [id number] Virginia Reardon PA-C LAB - BODY FLUID ORDERABLES Performing Organization Address [facility] Co de Phone Number [facility] INSURANCE BILL [address] [place] [address] * TISSUE TRANSGLUTAMINASE AB IGA (08/31/2018 11:04 AM CARGO MATE) TTG Antibody IgA <2 0 - 3 U/mL [facility] INSURANCE BILL Comment: Negative 0 - 3 Weak Positive 4 - 10 Positive >10 . Tissue Transglutaminase (tTG) has been identified as the endomysial antigen. Studies have demonstr- ated that endomysial IgA antibodies have over 99% specificity for gluten sensitive enteropathy. Blood BLOOD SPECIMEN / Unknown 08/31/2018 11:04 AM CARGO MATE 08/31/2018 Narrative Resulting Agency Comment [facility] [address] [facility] [phone] Virginia Reardon PA-C LAB - SEROLOGY OR DERABLES Performing Organization Address [facility] de Phone Number [facility] INSURANCE BILL [address] [place] [address] * TSH (08/31/2018 11:04 AM CARGO MATE) Only the most recent of2 resultswithin the time period is included. TSH 1.500 0.450 - 4.500 uIU/mL [facility] INSURANCE BILL Blood BLOOD SPECIMEN / Unknown 08/31/2018 11:04 AM CARGO MATE 08/31/2018 Narrative Resulting Agency Comment [facility] [address] [facility] [phone] Virginia Reardon PA-C LAB - CHEMISTRY O RDERABLES Performing Organization Address [facility] Co de Phone Number [facility] INSURANCE BILL [address] [place] [address] * T4 FREE (08/31/2018 11:04 AM CARGO MATE) Only the most recent of2 resultswithin the time period is included. T4 Free 1.13 0.82 - 1.77 ng/dL [facility] INSURANCE BILL Blood BLOOD SPECIMEN / Unknown 08/31/2018 11:04 AM CARGO MATE 08/31/2018 Narrative Resulting Agency Comment [facility] [address] [facility] [phone] Virginia Reardon PA-C LAB - CHEMISTRY O RDERABLES Performing Organization Address [facility]/ZIP Co de Phone Number [facility] INSURANCE BILL [address] [place] [address] * (ABNORMAL) IGA BLOOD (08/31/2018 11:04 AM CARGO MATE) IgA Quantitative 505(H) 87 - 352 mg/dL [facility] INSURANCE BILL Blood BLOOD SPECIMEN / Unknown 08/31/2018 11:04 AM CARGO MATE 08/31/2018 Narrative Resulting Agency Comment [facility] [address] [facility] [phone] Virginia Reardon PA-C LAB - CHEMISTRY O RDERABLES Performing Organization Address [facility] Co de Phone Number [facility] INSURANCE BILL [address] [place] [address] * IMAGING/RADIOLOGY/XRAY RESULTS ORDER (08/16/2018 7:39 AM CARGO MATE) Only the most recent of2 resultswithin the time period is included. Anatomical Region Laterality Modality Other Narrative 08/16/2018 7:39 AM CARGO MATE Ordered by an unspecified provider. Scanned Document IMAGING * US THYROID (02/11/2018 3:20 PM CDT) Anatomical Region Laterality Modality Chest Ultrasound 02/11/2018 3:13 PM CDT Impressions 02/11/2018 3:45 PM CDT IMPRESSION: 1.Diffusely increased hyperemia of the thyroid gland. Clinical correlation for hyperthyroidism is recommended. 2.No discrete thyroid nodule is identified. Dictated by Mike Bell MD ([employer]). I, Dr. LE HADLEY M.D. have personally [...] is identified. Dictated by Mike Bell MD ([employer]). I, Dr. LE HADLEY M.D. have personally [...] Toribio Moya MD US ORDERABLES Care Teams Chief Of Harbor Patrol Relationship Specialty Start Date End Date Kristian Granda MD PCP - General 08/24/18
--- OUTSIDE RECORDS SUMMARY | 2024-09-20 14:55 | XMS_ITS | Encounter Summary ---
Author Organization [facility] Address [address] [place] [address] Phone Care Team Providers Care Client Account Assistant Name Role Phone Kristian Granda MD Primary Care Provider [phone] Adali Johnson MD Unavailable Reason for Visit * Reason Comments Medication Refill Encounter Details Date Type Department Care Team ([facility] Contact Info) Description 01/18/2024 Refill [facility] [address] [address] Adali Johnson MD [address] [place] [phone] Medication Refill Social History Tobacco Use Types Packs/Day Years Used Date Smoking Tobacco: Every Day Cigarettes Smokeless Tobacco: Never Alcohol Use Standard Drinks/Week Comments Yes 0 (1 standard drink = 0.6 oz pur e alcohol) 125 ounces [place] ICE daily Comments No Sex and Gender Information Value Date Recorded Sex Assigned at Female 09/15/2023 8:24 PM CHARGEMASTER SPECIALIST Legal Sex Female 8:09 PM CHARGEMASTER SPECIALIST Gender Identity Female 09/15/2023 8:24 PM CHARGEMASTER SPECIALIST Sexual Orientation Not on file documented as of this encounter Miscellaneous Notes * Telephone Encounter - Jennifer Saenz RN - 01/18/2024 11:54 AM CDT Refill request from pharmacy. Please fill if appropriate. documented in this encounter Plan of Treatment Upcoming Encounters Date Type Department Care Team (Late st Contact Info) Description 09/26/2024 10:00 AM CDT Lab [facility] [address] [phone] Lab, [facility] 09/26/2024 10:15 AM CDT Office Visit [facility] [address] [phone] Adali Johnson MD [address] [place] [phone] documented as of this encounter Visit Diagnoses Diagnosis Thrombocytopenia (HCC) Thrombocytopenia, unspecified documented in this encounter Care Teams Client Account Assistant Relationship Specialty Start Date End Date Kristian Granda MD [address] [place] [address] PCP - General Family Medicine 09/15/23 Adali Johnson MD [address] [place] [phone] Consulting Physician Oncology 01/18/24 documented as of this encounter
--- OUTSIDE RECORDS SUMMARY | 2024-09-20 14:55 | XMS_ITS | Encounter Summary ---
Author Organization [facility] Address [address] [place] [address] Phone Care Team Providers Care [employer]iconductor Package Symbol Stamper Name Role Phone Kristian Granda MD Primary Care Provider [phone] Adali Johnson MD Unavailable Encounter Details Date Type Department Care Team ([facility] Contact Info) Description 04/05/2024 Telephone [facility] [address] [phone] Adali Johnson MD [address] [place] [phone] Social History Tobacco Use Types Packs/Day Years Used Date Smoking Tobacco: Every Day Cigarettes Smokeless Tobacco: Never Comments:Pt states she's ge tting there on quitting. Alcohol Use Standard Drinks/Week Comments Not Currently 0 (1 standard drink = 0.6 oz pur e alcohol) Comments No Sex and Gender Information Value Date Recorded Sex Assigned at Female 09/15/2023 8:24 PM WASTE WATER PLANT OPERATOR Legal Sex Female 8:09 PM WASTE WATER PLANT OPERATOR Gender Identity Female 09/15/2023 8:24 PM WASTE WATER PLANT OPERATOR Sexual Orientation Not on file documented as of this encounter Plan of Treatment Upcoming Encounters Date Type Department Care Team ([facility] Contact Info) Description 09/26/2024 10:00 AM CDT Lab [facility] [address] [address] Lab, Cc [facility] 09/26/2024 10:15 AM CDT Office Visit [facility] [address] [phone] Adali Johnson MD [address] [place] [address] documented as of this encounter Visit Diagnoses Not on filedocumented in this encounter Care Teams Semiconductor Package Symbol Stamper Relationship Specialty Start Date End Date Kristian Granda MD [address] [place] [address] PCP - General Family Medicine 09/15/23 Adali Johnson MD [address] [place] [address] Consulting Physician Oncology 01/18/24 documented as of this encounter
[2024-09-20 15:02] LABS: Alanine Aminotransferase 20 U/L (6-35); Albumin Level 3.3 g/dL (3.5-5.1); Alkaline Phosphatase 139 U/L (38-126); Anion Gap 12 mmol/L (4-12); Aspartate Amino Transferase 39 U/L (14-36); Blood Urea Nitrogen 6 mg/dL (7-17); Calcium 8.5 mg/dL (8.4-10.2); Carbon Dioxide 22 mmol/L (22-30); Chloride 102 mmol/L (98-107); Estimated CRCL calculation 105 ml/min; Estimated Glomerular Filt Rate > 60; Glucose 158 mg/dL (65-110); Lipase 19 U/L (23-300); Potassium 3.5 mmol/L (3.4-5.0); Sodium 136 mmol/L (137-145)
[2024-09-20 15:05] LABS: Basophils Percent Auto 0.5 % (0.2-1.2); Eosinophils Percent Auto 0.5 % (0-4.4); Hematocrit 32.6 % (37.0-47.0); Hemoglobin 10.3 g/dL (12.0-15.0); Immature Granulocyte Absolute 0.02 K/mm3 (0.00-0.031); Immature Granulocyte Percent A 0.5 % (0-0.5); Lymphocytes Absolute Auto 0.82 K/mm3 (0.9-3.2); Lymphocytes Percent Auto 19.2 % (18.3-44.2); Mean Corpuscular HGB Conc 31.6 g/dl (32-36); Mean Corpuscular Hemoglobin 28.5 pg (26-34); Mean Corpuscular Volume 90.3 fl (80-100); Monocytes Absolute Auto 0.2 K/mm3 (0.1-0.6); Monocytes Percent Auto 5.6 % (2.6-8.5); Neutrophils Absolute Auto 3.1 K/mm3 (1.3-6.7); Neutrophils Percent Auto 73.7 % (45.5-73.1); Platelet Count Result 177 k/mm3 (150-375); Red Blood Count 3.61 M/mm3 (4.2-5.4); Red Cell Distribution Width 23.9 % (11.5-14.5); White Blood Count 4.3 K/mm3 (4.5-10.0)
--- NOTE | 2024-09-20 15:06 | ED_ITS ---
HPI - Abdominal Pain General Chief Complaint: Abdominal Pain Stated Complaint: Bilat lower back pain, V with dark stool Time Seen by Provider: 09/20/24 14:19 Source: patient and old records reviewed Mode of arrival: ambulatory Limitations: no limitations History of Present Illness HPI narrative: Patient is a 49-year-old female, with PMH of former alcoholism, cirrhosis, who presents to the ED with report of abdominal pain. Patient reports having diffuse lower abdominal pain/bloating and lower back pain. States pain began yesterday and has been worsening since then. Has not tried anything for pain. Reports nausea, vomiting, diarrhea, states her stools have been dark in color. She has been taking pepto bismol. She is also on iron. Per records, patient was recently admitted to the hospital here for anemia/UGIB/cirrhosis. Underwent endoscopy, received 3 units PRBC at that time. Patient denies fevers. Denies dysuria, hematuria. Related Data Home Medications ?Medication ?Instructions ?Recorded ?Confirmed ?Last Taken ?Type amitriptyline 25 mg tablet 25 mg PO PRN PRN Sleep 08/30/23 09/05/24 Unknown History cyclobenzaprine 10 mg tablet 10 mg PO PRN PRN back spasms 08/30/23 09/05/24 Unknown History multivitamin 1 tablet PO DAILY 09/05/24 09/05/24 09/04/24 09:00 History Allergies Allergy/AdvReac Type Severity Reaction Status Date / Time adhesive tape AdvReac Other Verified 09/20/24 14:39 Sulfa (Sulfonamide AdvReac Headache Verified 09/20/24 14:39 Antibiotics) Review of Systems 2 Review of Systems: All systems reviewed & are unremarkable except as noted in HPI. All systems reviewed & are unremarkable except as noted in HPI and below PMFSH Past Medical History Medical History Anemia Chronic hyponatremia Alcohol use disorder, severe, in sustained remission, dependence Marijuana use Asthma Chronic back pain Nicotine abuse In remission since 04/2024 previously smoked 1.5 packs of cigarettes per day since she was a teenager Chronic GERD Hypertension She reports that she has been actually having low blood pressures since April 2024 and is no longer on antihypertensives. History of Clostridioides difficile colitis COPD (chronic obstructive pulmonary disease) Surgical History Surgical History Status post open reduction with internal fixation of fracture January 2024 intratrochanteric pending performed at [facility] at which time the patient left AMA H/O dilation and curettage Family History Family History Father Diabetes mellitus Mother Diabetes mellitus Social History Social History Social History: The patient lives with her significant other. They been together for 11 years. Her mother and father live next door to her. She smokes marijuana daily. She has been unemployed since summer. She used to drink 6 24 oz cans a day. She quit drinking alcohol January 2024. She is currently an every day smoker, 1.5pack per day for 37 years but quit smoking April 2024. She has 1 daughter Code status: Full code. Smoking packs per day: 1.5 Smoking cigarettes per day: 30.0 Years smoked: 37 Smoking pack-years: 55.50 Smoking status: Former smoker Tobacco type: cigarettes Second hand tobacco smoke exposure: No Alcohol intake: former Drinks per week: 42 Alcohol use details: Quit January 2024 Substance use: current Substance use type: marijuana Other substance usage details: 2 joints Last use: 09/04/24 Do You Feel Safe in your Home?: Yes Lack of Transportation: No Lack of Food: Never True Current Housing: I Have Housing Concerned About Future Housing: No Difficulty Paying Gas/Electric Bills: No Difficulty Paying for Meds: No Currently Unemployed: No Education: Trade/Vocational Certificate Difficulty w/ Childcare or Family Care: No Spiritual care concerns: No Exam 2 Narrative: GENERAL: Appears older than stated age, thin, non-toxic, in no acute distress. HEAD: Normocephalic, atraumatic. RESPIRATORY: Airway patent, respirations nonlabored. Clear to auscultation bilaterally, no rales, rhonchi, wheezing. CARDIOVASCULAR: Regular rate and rhythm without murmurs, rubs, or gallops. ABDOMINAL: Mildly distended appearing but soft to palpation, diffusely tender. No significant focal tenderness. Normoactive BS. MUSCULOSKELETAL: Moves all extremities. No gross deformities. SKIN: Warm, dry, normal color. NEURO: A&O X3. Speech clear. PSYCHIATRIC: Appropriate mood and affect. Normal interaction. Course Vital Signs Vital signs: Vital Signs Temperature 97.8 F 09/20/24 13:49 Pulse Rate 111 H 09/20/24 13:49 Respiratory Rate 16 09/20/24 13:49 Blood Pressure 131/71 09/20/24 13:49 Pulse Oximetry 97 09/20/24 13:49 Oxygen Delivery Room Air 09/20/24 13:49 Temperature 97.8 F 09/20/24 13:49 Pulse Rate 99 09/20/24 18:07 Respiratory Rate 18 09/20/24 18:07 Blood Pressure 113/81 09/20/24 18:07 Pulse Oximetry 98 09/20/24 18:07 Oxygen Delivery Room Air 09/20/24 13:49 MDM - Abdominal Pain MDM Narrative Medical decision making narrative: Patient presented to ED with abdominal pain, bloating, nausea, vomiting, diarrhea, melena. Per records, patient was recently admitted here for cirrhosis, gastropathy, anemia. Patient mildly tachycardic upon arrival. In no acute distress. Afebrile. CBC without leukocytosis. Hemoglobin today is stable at 10.3. Up trending from recent visit. Patient did report recent melena. She has been taking Pepto- Bismol at home and noticed the melena after this. She denies bright red blood per rectum. Discussed performing a digital rectal exam, however patient deferred this at this time. CMP fairly unremarkable. Normal electrolytes and kidney function. BG minimally elevated to 158. Bilirubin within normal range. AST 39. ALT within normal range. Alk-phos 139. Lipase normal. UA with trace leuk esterase, 6-10 white blood cell count. No urine bacteria seen. Sent for cx. Discussed this with patient. She denies dysuria or hematuria, but does state her urine has been darker in color of the last few days. She does prefer to start antibiotics now. Advised to follow-up closely with her PCP for urine culture results. CT scan of abdomen/pelvis was obtained: IMPRESSION: 1. Cirrhosis of the liver with portal venous hypertension. 2. Small volume of ascites. 3. Wall thickening of the ascending and transverse colon, most likely interstitial edema from portal venous hypertension. Colitis may have the same appearance, but is less likely. Patient denies any recent bowel changes. Low suspicion for colitis. Overall workup is unrevealing, imaging findings today are similar to previous records. Discussed lab and imaging findings with patient. She is feeling improved with supportive therapy. She has a follow-up appointment with her GI specialist and retail sales vitamin consultant next week. Feel she is safe for discharge home at this time. Again discussed YOCASTA and patient declined, states she will follow-up with her GI specialist. Discussed very strict return precautions. Patient in agreement with plan, feels comfortable discharge home. Would prefer to go home versus staying in the hospital. D/C in stable condition. VSS at time of d/c. Medical Records Attestation: I reviewed the patient's medical records. Lab Data Attestation: I reviewed the patient's lab results. 09/20/24 14:41 09/20/24 14:41 Labs: Lab Results 09/20/24 09/20/24 Range/Units 14:25 14:41 WBC 4.3 L (4.5-10.0) K/mm3 RBC 3.61 L (4.2-5.4) M/mm3 Hgb 10.3 L (12.0-15.0) g/dL Hct 32.6 L (37.0-47.0) % MCV 90.3 (80-100) fl MCH 28.5 (26-34) pg MCHC 31.6 L (32-36) g/dl RDW 23.9 H (11.5-14.5) % Plt Count 177 (150-375) k/mm3 MPV 10.0 (7.4-10.4) fl Immature Gran % (Auto) 0.5 (0-0.5) % Neut % (Auto) 73.7 H (45.5-73.1) % Lymph % (Auto) 19.2 (18.3-44.2) % [place] % (Auto) 5.6 (2.6-8.5) % Eos % (Auto) 0.5 (0-4.4) % Baso % (Auto) 0.5 (0.2-1.2) % Lymph # (Auto) 0.82 L (0.9-3.2) K/mm3 [place] # (Auto) 0.2 (0.1-0.6) K/mm3 Eos # (Auto) 0.0 (0-0.3) K/mm3 Baso # (Auto) 0.0 (0.0-0.1) K/mm3 Abs Immat Gran (auto) 0.02 (0.00-0.031) K/mm3 Absolute Neuts (auto) 3.1 (1.3-6.7) K/mm3 Absolute Nucleated RBC 0.000 (0.0-0.012) K/mm3 Band Neutrophils % Not Reportable Nucleated RBC % 0.0 (0.0-0.2) % Platelet Estimate Adequate (Adequate) Hypochromasia 1+ Anisocytosis 2+ Schistocytes None seen Sodium 136 L (137-145) mmol/L Potassium 3.5 (3.4-5.0) mmol/L Chloride 102 (98-107) mmol/L Carbon Dioxide 22 (22-30) mmol/L Anion Gap 12 (4-12) mmol/L BUN 6 L (7-17) mg/dL Creatinine 0.41 L (0.7-1.0) mg/dL Estim Creat Clear Calc 105 ml/min Estimated GFR > 60 (59 - ) Glucose 158 H (65-110) mg/dL Calcium 8.5 (8.4-10.2) mg/dL Total Bilirubin 1.0 (0.2-1.3) mg/dL AST 39 H (14-36) U/L ALT 20 (6-35) U/L Alkaline Phosphatase 139 H (38-126) U/L Total Protein 8.0 (6.3-8.2) g/dL Albumin 3.3 L (3.5-5.1) g/dL Lipase 19 L (23-300) U/L Urine Color Yellow (Yellow) Urine Appearance Clear (Clear) Urine pH 5.5 (5.0-9.0) Ur Specific [place] 1.012 (1.001-1.035) Urine Protein Negative (Negative) mg/dL Urine Glucose (UA) Negative (Negative) mg/dL Urine Ketones Negative (Negative) mg/dL Ur Blood (Man) Negative (Negative) Urine Nitrate Negative (Negative) Urine Bilirubin Negative (Negative) Urine Urobilinogen 0.2 (<2.0) mg/dL Leukocyte Esterase Rfl Trace H (Negative) [place]/UL Urine RBC 0-2 (0-2) /hpf Urine WBC 6-10 H (0-3) /hpf Ur Squamous Epith Cells None seen (Few) /hpf Urine Bacteria None seen /hpf Urine Casts 0-2 Imaging Data Attestation: I personally reviewed and interpreted this imaging study as follows: Radiologist's impression: ITS Impressions Abdomen/Pelvis CT 09/20/24 15:37 IMPRESSION: 1. Cirrhosis of the liver with portal venous hypertension. 2. Small volume of ascites. 3. Wall thickening of the ascending and transverse colon, most likely interstitial edema from portal venous hypertension. Colitis may have the same appearance, but is less likely. Discharge Plan Discharge Clinical Impression: Diffuse abdominal pain, Cirrhosis of liver, UTI (urinary tract infection) Patient Disposition: Home, Self-Care Condition: Stable Instructions: Antibiotic Form, Cirrhosis of the Liver (ED), Urinary Tract Infection in Women (ED), Ascites (ED), Abdominal Pain (ED), Chronic Liver Disease (ED) Additional Instructions: Your workup here was reassuring. Your urine showed signs of possible infection. Take antibiotics as prescribed. Follow-up with your primary care doctor for further evaluation and urine culture results. Continue Tylenol as needed for abdominal pain. You may also try Bentyl as needed for abdominal discomfort. Tramadol as needed for more severe pain. Continue to follow-up with your GI specialist for further evaluation. Return to ED if you experience worsening or severe pain, persistent black stools, rectal bleeding, unable to keep down food or drink, persistent fevers, or any other symptoms of concern. Patient Language: [place] Island[place] Prescriptions: New dicyclomine 20 mg tablet 20 mg PO TID PRN (Reason: Abdominal Discomfort) Qty: 10 0RF cephalexin 500 mg capsule 500 mg PO Q6H 7 Days Qty: 28 0RF tramadol 50 mg tablet 25 mg PO Q8H PRN (Reason: pain) Qty: 10 0RF No Action albuterol sulfate 90 mcg/actuation HFA aerosol inhaler 1 inh inhalation QID PRN (Reason: shortness of breath or wheezing) 30 Days Qty: 8.5 0RF cyclobenzaprine 10 mg tablet 10 mg PO PRN PRN (Reason: back spasms) amitriptyline 25 mg tablet 25 mg PO PRN PRN (Reason: Sleep) multivitamin Tablet 1 tablet PO DAILY pantoprazole [Protonix] 40 mg tablet,delayed release (DR/EC) 40 mg PO HS 56 Days Qty: 56 0RF ferrous sulfate 325 mg (65 mg iron) tablet,delayed release (DR/EC) 325 mg PO DAILY Qty: 60 0RF sucralfate [Carafate] 1 gram tablet 1 g PO ACHS Qty: 120 0RF Follow-up/Referrals: Kalee,Kristian Kruse MD [Primary Care Provider] - Time of Disposition: 17:38
[2024-09-20 15:34] LABS: Hypochromasia 1+; Platelet Estimate Adequate (Adequate)
[2024-09-20 15:35] LABS: Schistocytes None Seen
[2024-09-20 15:36] LABS: Anisocytosis 2+
[2024-09-20] MEDS: ONDANSETRON INJ 4 MG/2 ML VIAL IV PUSH (15:42)
[2024-09-20] MEDS: SODIUM CHLORIDE 0.9% IV 1,000 ML 999 ML IV CONT (15:42)
[2024-09-20] MEDS: MORPHINE SULFATE (*CRX) 4 MG/ML INJ IV PUSH (15:43)
[2024-09-20 15:45] VITALS: BP 128/79; PULSE 102; RESP 16; O2SAT 95
--- OUTSIDE RECORDS SUMMARY | 2024-09-20 16:35 | XMS_ITS | Encounter Summary ---
Author Organization [facility] Address [address] [place] [address] Phone Care Team Providers Care Reducing System Operator Name Role Phone Kristian Granda MD Primary Care Provider [phone] Adali Johnson MD Unavailable Encounter Details Date Type Department Care Team ([facility] Contact Info) Description 04/05/2024 Telephone [facility] [address] [address] Adali Johnson MD [address] [place] [phone] Social History Tobacco Use Types Packs/Day Years Used Date Smoking Tobacco: Every Day Cigarettes Smokeless Tobacco: Never Comments:Pt states she's ge tting there on quitting. Alcohol Use Standard Drinks/Week Comments Not Currently 0 (1 standard drink = 0.6 oz pur e alcohol) Comments No Sex and Gender Information Value Date Recorded Sex Assigned at Female 09/15/2023 8:24 PM [employer] DEVELOPER Legal Sex Female 8:09 PM [employer] DEVELOPER Gender Identity Female 09/15/2023 8:24 PM [employer] DEVELOPER Sexual Orientation Not on file documented as of this encounter Plan of Treatment Upcoming Encounters Date Type Department Care Team ([facility] Contact Info) Description 09/26/2024 10:00 AM CDT Lab [facility] [address] [address] Lab, [facility] 09/26/2024 10:15 AM CDT Office Visit [facility] [address] [phone] Adali Johnson MD [address] [place] [address] documented as of this encounter Visit Diagnoses Not on filedocumented in this encounter Care Teams Reducing System Operator Relationship Specialty Start Date End Date Kristian Granda MD [address] [place] [address] PCP - General Family Medicine 09/15/23 Adali Johnson MD [address] [place] [address] Consulting Physician Oncology 01/18/24 documented as of this encounter
--- OUTSIDE RECORDS SUMMARY | 2024-09-20 16:35 | XMS_ITS | Patient Health Summary ---
Author Organization [facility] Address [address] [place] [address] Care Team Providers Care Employee Health Rn Name Role Phone Kristian Granda MD Primary Care Provider [phone] Note from [facility],non-owned Affiliates and Associated Physician Practices is amultiple site organization consisting of ambulatory clinics and hospital sitesin [place], [place], [place] and [place]. This disclosure is being madepursuant to the Care Everywhere program and may not contain all information available regarding this patient. Last updated 18.[facility] Allergies * Sulfa Drugs(Other) -High Criticality * [...] 02/26/2024 Urinary tract infection 09/22/201710/17 Immunizations * Kuaidi Dache primary Monovalent 12+ yr 0.3ml(Given 04/25/2022, 01/18/2022) [...] Recorded Patient Health Questionnaire-2 Score 0 07/06/2024 [employer] of Occupat ional [facility] - Occupational Stress Questionnaire Answer [...] place to sleep or slept in a detention (including now)? No 01/28/2024 Sex and Gender Information Value Date Recorded Sex Assigned at Not on file Gender Identity Not on file Sexual Orientation Not on file Last Filed Vital Signs Vital Sign Reading Time Taken Comments Blood Pressure 122/76 08/16/2024 10:55 AM TAPERING MACHINE OPERATOR Pulse 102 08/16/2024 10:55 AM TAPERING MACHINE OPERATOR Temperature 36.6 C (97.8 F) 05/18/2024 3:57 PM CDT Respiratory Rate 17 05/18/2024 3:57 PM CDT Oxygen Saturation 99% 08/16/2024 10:55 AM TAPERING MACHINE OPERATOR Inhaled Oxygen Concentration 60% 01/30/2024 5 :29 AM CDT Weight 64.2 kg (141 lb 8 oz) 08/16/2024 10:55 AM TAPERING MACHINE OPERATOR Height 160 cm (5' 3 ) 08/16/2024 10:55 AM TAPERING MACHINE OPERATOR Body Mass Index 25.07 08/16/2024 10:55 AM TAPERING MACHINE OPERATOR Medical Devices Implanted Type Area Cvicu Nurse Device Identifier Shelf Expiration Date Model / Serial / Lot [id number] 11mm/130 Deg. Ti Crystal Tfna Implanted:Qty: 1 on 01/28/2024 by Elissa Reynoso MD at [facility] Right: Hip 08/18/2031 [id number] / / [id number] [id number] Tfna Fenestrated Screw 90 Mm Implanted:Qty: 1 on 01/28/2024 by Elissa Reynoso MD at [facility] Right: Hip 10/16/2033 [id number] / / [id number] 04.045.032 5.0 Locking Screw Implanted:Qty: 1 on 01/28/2024 by Elissa Reynoso MD at [facility] Right: Hip 04.045.032 / / Explanted Type Area Cvicu Nurse Device Identifier Shelf Expiration Date Model / Serial / Lot Bit Drl 10mm 300mm Tfn-Adv Lg Qc Crystal Explanted:Qty: 1 on 01/28/2024 at [facility] 03.037.021 / / Procedures * EEG EXTENDED MONITORING > 1 HOUR(Performed 09/13/2024) Performed for Seizures ([facility]) * MRI BRAIN WO CONTRAST(Performed 08/27/2024) Performed for Seizures ([facility]) * XR HIP RIGHT 2VW OR MORE(Performed 07/06/2024) Performed for Closed intertrochanteric fracture of hip, right, initial encounter ([facility]) * HOME O2 EVAL (DESATURATION SCREEN)(Performed 05/18/2024) Performed for Chronic bronchitis, unspecified chronic bronchitis type ([facility]) * COMPLETE PFT W/WO BRONCHODILATOR(Performed 05/18/2024) Performed for Chronic bronchitis, unspecified chronic bronchitis type ([facility]) * XR HIP RIGHT 2VW OR MORE(Performed 05/04/2024) Performed for Closed intertrochanteric fracture of hip, right, initial encounter ([facility]) * CT LUNG SCREEN LOW DOSE(Performed 03/23/2024) Performed for Tobacco use disorder * XR HIP RIGHT 2VW OR MORE(Performed 03/23/2024) Performed for Closed intertrochanteric fracture of hip, right, initial encounter ([facility]) * XR HIP RIGHT 2VW OR MORE(Performed 02/17/2024) Performed for Closed intertrochanteric fracture of hip, right, initial encounter ([facility]) * MAGNESIUM BLOOD(Performed 02/10/2024) Performed for Hypophosphatemia [...] intertrochanteric fracture of hip, right, initial encounter ([facility]) * IRON + TRANSFERRIN PANEL(Performed 01/29/2024) * CALCIUM IONIZED WHOLE BLOOD(Performed 01/29/2024) * PHOSPHORUS BLOOD(Performed 01/29/2024) Performed for Right hip pain, Closed intertrochanteric fracture of hip, right, initial encounter ([facility]) * MAGNESIUM BLOOD(Performed 01/29/2024) Performed for Right hip pain, Closed intertrochanteric fracture of hip, right, initial encounter ([facility]) * BASIC METABOLIC PANEL (CALCIUM TOTAL)(Performed 01/29/2024) Performed for Right hip pain, Closed intertrochanteric fracture of hip, right, initial encounter ([facility]) * TSH REFLEX FREE T4(Performed 01/29/2024) * FOLATE(Performed 01/29/2024) * VITAMIN B12(Performed 01/29/2024) * XR PELVIS W RIGHT HIP 2VW(Performed 01/28/2024) Performed for Closed intertrochanteric fracture of hip, right, initial encounter ([facility]) * BASIC METABOLIC PANEL (CALCIUM TOTAL)(Performed 01/28/2024) * FL ABEBE SURGERY(Performed 01/28/2024) Performed for Closed intertrochanteric fracture of hip, right, initial encounter ([facility]) * ENDOTRACHEAL TUBE NOTE(Performed 01/28/2024) * UT OPEN RX FEMUR FX+INTRAMED VERONIQUE(Performed 01/28/2024) Performed for Type I or II open displaced intertrochanteric fracture of right femur, initial encounter ([facility]) * BLOOD TYPE VERIFICATION(Performed 01/28/2024) * EKG 12-LEAD(Performed 01/28/2024) Performed for Right hip pain * XR HIP RIGHT 2VW OR MORE(Performed 01/28/2024) Performed for Closed intertrochanteric fracture of hip, right, initial encounter ([facility]) * XR KNEE RIGHT 2VW OR LESS(Performed 01/28/2024) Performed for Right hip pain * HCG BETA BLOOD QUANTITATIVE(Performed 01/28/2024) Performed for Closed intertrochanteric fracture of hip, right, initial encounter ([facility]) * BASIC METABOLIC PANEL (CALCIUM TOTAL)(Performed 01/28/2024) [...] 01/28/2024) Performed for Right hip pain * UT DESTRUCT BENIGN LESION, 1-14(Performed 12/22/2023) Performed for [...] MONITORING > 1 HOUR (09/13/2024 9:51 AM TAPERING MACHINE OPERATOR) Narrative Abril Manning MD - 09/13/2024 9:51 AM TAPERING MACHINE OPERATOR Abril Manning MD 09/20/2024 8:25 AM EEG [...] the report. Abril Manning MD Justina Beltre [facility] * MRI Brain Wo Contrast (08/27/2024 9:01 AM TAPERING MACHINE OPERATOR) Anatomical Region Laterality Modality Head Magnetic Resonan ce 08/30/2024 9:53 AM TAPERING MACHINE OPERATOR Impressions 09/03/2024 2:05 PM TAPERING MACHINE OPERATOR IMPRESSION: 1.There are suspected small foci of [...] report is dictated by Wilder Hyde MD (associate professor of radiology) I, Trenton Dexter MD have personally reviewed and interpreted this examination/study. > Interpreting Provider: Trenton Dexter MD on 09/03/2024 2:05 PM Narrative 09/03/2024 2:05 PM TAPERING MACHINE OPERATOR PROCEDURE: MRI BRAIN WO CONTRAST, DATE/TIME OF EXAM: 08/27/2024 9:01 AM, LOCATION [facility] INDICATION: R56.9: Seizures (HCC) ADDITIONAL CLINICAL INFORMATION: [...] DATE/TIME OF EXAM: 08/27/2024 9:01 AM, LOCATION [facility] INDICATION: R56.9: Seizures (HCC) ADDITIONAL CLINICAL INFORMATION: [...] report is dictated by Wilder Hyde MD (associate professor of radiology) ITrenton MD have personally reviewed and interpretedthis examination/study. > Interpreting Provider: Trenton Dexter MD on 09/03/2024 2:05 PM Justina Mayertino TOP CLEANER-COMPLIANCE ADVISOR MR ORDERABLES * XR Hip Right 2Vw or More (07/06/2024 9:55 AM TAPERING MACHINE OPERATOR) Only the most recent of5 resultswithin the time period is included. Anatomical Region Laterality Modality Pelvis, Lower Extremity Radiogra [facility] 07/06/2024 1:39 PM TAPERING MACHINE OPERATOR Impressions 07/06/2024 1:41 PM TAPERING MACHINE OPERATOR IMPRESSION: Overall no significant interval change in appearance of the right hip since the prior study. Report dictated by Valeria Lowry MD (associate professor of radiology). > Interpreting Provider: Evelio Nunez MD on 07/06/2024 1:41 PM Narrative 07/06/2024 1:41 PM TAPERING MACHINE OPERATOR PROCEDURE: XR HIP RIGHT 2VW OR MORE DATE/TIME OF EXAM: 07/06/2024 9:55 AM CLINICAL INFORMATION: None relevant/not provided if blank. Indication: S72.141A: Closed intertrochanteric fracture of hip, right, initial encounter ([facility]) Additional History: COMPARISON: Right hip radiographs dated [...] intertrochanteric fracture of hip, right, initial encounter ([facility]) Additional History: COMPARISON: Right hip radiographs dated [...] study. Report dictated by Valeria Lowry MD (associate professor of radiology). > Interpreting Provider: Evelio Nunez MD on 07/06/2024 1:41 PM Elissa Reynoso MD DIAGNOSTIC IMAGING ORDERABLES * AMBULATORY OXIMETRY (05/18/2024 3:52 PM CDT) Impressions Anoop Chew MD - 05/18/2024 3:52 PM CDT [facility] DEPARTMENT OF PULMONARY, CRITICAL CARE, [...] Barrow MD Pulmonary and Critical Care Fellow, [facility] 05/19/2024 8:54 PM Attestation: I have [...] Chew MD - 05/18/2024 3:41 PM CDT [facility] DEPARTMENT OF PULMONARY, CRITICAL CARE, AND [...] Barrow MD Pulmonary & Critical Care Fellow, [facility] 8:51 PM 05/19/2024 Attestation: I have [...] search: Lung-RADS Lung Cancer Screening 3) Contact [facility] thoracic nurse coordinator ([phone]) I, Earl Rose MD have personally reviewed [...] search: Lung-RADS Lung Cancer Screening 3) Contact [facility] thoracic nurse coordinator ([phone]) I, Earl Rose MD have personally reviewed and interpreted this examination/study. > Interpreting Provider: Earl Rose MD on 03/23/2024 9:59 [address] MD [address] ORDERABLES * (ABNORMAL) RENAL FUNCTION PANEL (02/10/2024 3:32 PM CDT) Only the most recent of2 resultswithin the time period is included. BUN <5(L) 7 - 26 mg/dL 02/10/2024 4:57 PM [facility] Creatinine 0.29(L) 0.56 - 0.96 mg/dL 02/10/2024 4:57 PM [facility] Sodium 128(L) 136 - 145 mmol/L 02/10/2024 4:57 PM [facility] Potassium 5.1(H) 3.5 - 4.5 mmol/L 02/10/2024 4:57 PM [facility] Chloride 98 98 - 107 mmol/L 02/10/2024 4:57 PM [facility] CO2 26 22 - 29 mmol/L 02/10/2024 4:57 PM [facility] Glucose 106 70 - 115 mg/dL 02/10/2024 4:57 PM [facility] Albumin 2.5(L) 3.4 - 5.0 g/dL 02/10/2024 4:57 PM [facility] Calcium 8.3(L) 8.4 - 10.2 mg/dL 02/10/2024 4:57 PM [facility] Phosphorus 2.4(L) 2.9 - 5.1 mg/dL 02/10/2024 4:57 PM CDT [facility] Anion Gap 4(L) 6 - 16 02/10/2024 4:57 PM CDT [facility] BUN/Creatinine Ratio <17 7 - 23 02/10/2024 4:57 PM CDT [facility] Osmolality Calculated <264(L) 275 - 295 mOsm/kg 02/10/2024 4:57 PM CDT [facility] eGFR by CKD-EPI >90 >=90 mL/min/1.7 3 m2 02/10/2024 4:57 PM CDT [facility] Blood BLOOD SPECIMEN / Unknown Lab Venipuncture / Unknown 02/10/2024 3:32 PM CDT 02/10/2024 4:27 PM CDT Ruddy Isabel MD LAB - CHEMISTRY ORDERABLES Performing Organization Address City/[facility]/ZIP Co de Phone Number [address] [address], [facility] [phone] * MAGNESIUM BLOOD (02/10/2024 3:32 PM CDT) Only the most recent of4 resultswithin the time period is included. Magnesium 2.0 1.6 - 2.6 mg/dL 02/10/2024 4:57 PM CDT [facility] Blood BLOOD SPECIMEN / Unknown Lab Venipuncture / Unknown 02/10/2024 3:32 PM CDT 02/10/2024 4:27 PM CDT Ruddy Isabel MD LAB - CHEMISTRY ORDERABLES [address] [address], [employer] [phone] * LAB RESULTS ORDER (02/10/2024 10:50 AM [...] CARDIAC SERVICES ORD ERABLES * (ABNORMAL) PT-INR [facility] (02/04/2024 4:04 PM CDT) Only the most recent of3 resultswithin the time period is included. PT 17.7(H) 12.1 - 14.8 Seconds 02/04/2024 5:09 PM CDT [facility] INR 1.5 See Comment 02/04/2024 5:09 PM CDT [facility] Comment:The suggested therap eutic range for standard coumadin (warfarin) therapy is an INR of 2.0-3.0. For high-risk patients (Mechanical Mitral Valve Prosthesis, etc.), the suggested prophylactic therapeutic range is an INR of 2.5-3.5. Blood BLOOD SPECIMEN / Unknown Venipuncture / Unknown 02/04/2024 4:04 PM CDT 02/04/2024 4:08 PM CDT Chalo Watts MD LAB - COAGULATION OR DERABLES Performing Organization Address City/[facility]/ZIP Co de Phone Number [address] [address], [facility] [phone] * (ABNORMAL) C-REACTIVE PROTEIN (02/04/2024 4:04 PM CDT) Only the most recent of2 resultswithin the time period is included. C-Reactive Protein 6.0(H) <=0.5 mg/dL 02/04/2024 4:37 PM CDT [facility] Blood BLOOD SPECIMEN / Unknown Venipuncture / Unknown 02/04/2024 4:04 PM CDT 02/04/2024 4:09 PM CDT Chalo Watts MD LAB - CHEMISTRY ORDMagalis DIAZ Performing Organization Address City/[facility]/ZIP Co de Phone Number [address] [place] [address], [facility] [phone] * ERYTHROCYTE SEDIMENTATION RATE (02/04/2024 4:04 PM CDT) Only the most recent of2 resultswithin the time period is included. Pathologist [facility] Erythrocyte Sedimentation Rate Westergren 6 0 - 30 MM/HR 02/04/2024 4:29 PM CDT [facility] Blood BLOOD SPECIMEN / Unknown Venipuncture / Unknown 02/04/2024 4:04 PM CDT 02/04/2024 4:09 PM CDT Chalo Watts MD LAB - HEMATOLOGY ORD ERABLES [address] [address], [facility] [phone] * (ABNORMAL) CBC W/O DIFFERENTIAL (02/04/2024 4:04 PM CDT) Only the most recent of5 resultswithin the time period is included. Pathologist [facility] WBC 8.6 4.0 - 10.7 x10E9/L 02/04/2024 5:29 PM [facility] RBC Count 2.40(L) 3.90 - 5.20 x10E12/L 02/04/2024 5:29 PM [facility] Hemoglobin 8.4(L) 11.9 - 15.8 g/dL 02/04/2024 5:29 PM [facility] Hematocrit 26.1(L) 34.8 - 46.1 % 02/04/2024 5:29 PM [facility] MCV 108.8(H) 80.0 - 98.0 fL 02/04/2024 5:29 PM [facility] MCH 35.0(H) 26.7 - 33.6 pg 02/04/2024 5:29 PM [facility] MCHC 32.2 31.7 - 36.3 g/dL 02/04/2024 5:29 PM [facility] RDW-CV 21.0(H) 11.3 - 14.8 % 02/04/2024 5:29 PM CDT [facility] Platelet Count 152 150 - 420 x10E9/L 02/04/2024 5:29 PM CDT [facility] MPV 10.6 7.8 - 11.4 fL 02/04/2024 5:29 PM CDT [facility] NRBC 0.2(H) <=0.0 /100 WBC 02/04/2024 5:29 PM CDT [facility] Blood BLOOD SPECIMEN / Unknown Venipuncture / Unknown 02/04/2024 4:04 PM CDT 02/04/2024 4:09 PM CDT Chalo Watts MD LAB - HEMATOLOGY ORD ERABLES Performing Organization Address City/[facility]/ZIP Co de Phone Number [facility] [address] [place] [address], [place] [phone] * (ABNORMAL) OSMOLALITY BLOOD (02/04/2024 4:04 PM CDT) Only the most recent of2 resultswithin the time period is included. Osmolality 265(L) 275 - 295 mOsm/kg 02/04/2024 5:11 PM CDT [facility] Blood BLOOD SPECIMEN / Unknown Venipuncture / Unknown 02/04/2024 4:04 PM CDT 02/04/2024 4:09 PM CDT Chalo Watts MD LAB - CHEMISTRY CHRISTY DIAZ Performing Organization Address City/[facility]/ZIP Co de Phone Number [facility] [address] [place] [address], [place] [phone] * XR FEMUR RIGHT 2VW (02/04/2024 1:59 [...] edema. Report dictated by Wolfgang Zabala MD (associate professor of radiology). Sidra Castaneda MD have personally reviewed and interpreted this examination/study. > Interpreting Provider: Sidra Green MD on 02/04/2024 2:21 PM Narrative 02/04/2024 2:21 PM CDT PROCEDURE: XR FEMUR RIGHT 2VW, DATE/TIME OF EXAM: 02/04/2024 2:19 PM, LOCATION [facility] INDICATION: M79.604: Right leg pain ADDITIONAL CLINICAL [...] DATE/TIME OF EXAM: 02/04/2024 2:19 PM, LOCATION [facility] INDICATION: M79.604: Right leg pain ADDITIONAL CLINICAL [...] edema. Report dictated by Wolfgang Zabala MD (associate professor of radiology). Sidra Castaneda MD have personally reviewed and interpreted this examination/study. > Interpreting Provider: Sidra Green MD on 02/04/2024 2:21 PM Chalo Watts MD DIAGNOSTIC IMAGING O RDERABLES * (ABNORMAL) BASIC METABOLIC PANEL (CALCIUM TOTAL) (02/04/2024 7:15 AM CDT) Only the most recent of4 resultswithin the time period is included. BUN <5(L) 7 - 26 mg/dL 02/04/2024 7:48 AM [facility] Creatinine 0.28(L) 0.56 - 0.96 mg/dL 02/04/2024 7:48 AM [facility] Sodium 131(L) 136 - 145 mmol/L 02/04/2024 7:48 AM [facility] Potassium 3.4(L) 3.5 - 4.5 mmol/L 02/04/2024 7:48 AM [facility] Chloride 99 98 - 107 mmol/L 02/04/2024 7:48 AM [facility] CO2 24 22 - 29 mmol/L 02/04/2024 7:48 AM [facility] Glucose 111 70 - 115 mg/dL 02/04/2024 7:48 AM [facility] Calcium 7.5(L) 8.4 - 10.2 mg/dL 02/04/2024 7:48 AM [facility] Anion Gap 8 6 - 16 02/04/2024 7:48 AM [facility] BUN/Creatinine Ratio <18 7 - 23 02/04/2024 7:48 AM [facility] Osmolality Calculated <270(L) 275 - 295 mOsm/kg 02/04/2024 7:48 AM [facility] eGFR by CKD-EPI >90 >=90 mL/min/1.7 3 m2 02/04/2024 7:48 AM [facility] Blood BLOOD SPECIMEN / Unknown Venipuncture / Unknown 02/04/2024 7:15 AM CDT 02/04/2024 7:17 AM T Aravind De Guzman MD LAB - CHEMISTRY CHRISTY Villarreal Organization Address City/State/ZIP Co de Phone Number [facility] [address] [place] [address], [facility] [phone] * SARS-COV-2 (COVID-19) RAPID (02/04/2024 6:27 AM CDT) COVID-19 PCR Not detected Not detected 02/04/20 7:00 AM CDT [facility] Microbiology SPECIMEN FROM NASOPHARYNGEAL STRUCTURE / Unknown Collection / Unknown 02/04/2024 6:27 AM CDT 02/04/2024 6:28 AM CDT [facility] - 02/04/2024 7:00 AM CDT [employer] SARS-COV-2 has been authorized by [...] - MICROBIOLOGY O RDERABLES Performing Organization Address City/State/[facility] Co de Phone Number [address] [address], [facility] [phone] * MRSA DNA PCR (02/04/2024 6:27 AM CDT) MRSA DNA by PCR Not detected Not detected 02/04/2024 11:50 AM CDT [facility] Microbiology SPECIMEN FROM NASAL FOSSAE / Unknown Collection / Unknown 02/04/2024 6:27 AM CDT 02/04/2024 6:28 AM CDT Narrative [facility] - 02/04/2024 11:50 AM CDT Methicillin-resistant Staphylococcus aureus (MRSA) DNA is not detected (presumed not colonized with MRSA). Aravind De Guzman MD LAB - MICROBIOLOGY O LIZANDRO Performing Organization Address City/[facility]/ZIP Co de Phone Number [facility] [address] [place] [address], [facility] [phone] * TROPONIN-I HIGH SENSITIVE REFLEX 1HOUR (02/04/2024 4:38 AM CDT) Pathologist [facility] Troponin I High Sensitive <3 <=14 ng/L 02/04/2024 5:33 AM CDT [facility] Delta Troponin I HS 02/04/2024 5:33 AM CDT [facility] Comment:Delta value intentio lilian not calculated. Baseline to 1 hour specimen collection interval exceeded. Blood BLOOD SPECIMEN / Unknown Venipuncture / Unknown 02/04/2024 4:38 AM CDT 02/04/2024 4:42 AM CDT Lou Romero MD LAB - CHEMISTRY CHRISTY DIAZ Performing Organization Address City/[facility]/ZIP Co de Phone Number [facility] [address] [place] [address], [place] [phone] * URINALYSIS REFLEX TO MICROSCOPIC NO CULTURE (02/04/2024 4:38 AM CDT) Color UA Yellow Straw, Yellow 02/04/2024 4:48 AM CDT [facility] Clarity UA Clear Clear 02/04/2024 4:48 AM CDT [facility] Specific [place] UA 1.013 1.005 - 1.030 02/04/2024 4:48 AM CDT [facility] pH UA 7.0 5.0 - 8.0 pH 02/04/2024 4:48 AM CDT [facility] Protein UA Negative Negative 02/04/2024 4:48 AM CDT [facility] Glucose UA Negative Negative 02/04/2024 4:48 AM CDT [facility] Ketone UA Negative Negative 02/04/2024 4:48 AM CDT [facility] Bilirubin UA Negative Negative 02/04/2024 4:48 AM CDT [facility] Blood UA Negative Negative 02/04/2024 4:48 AM CDT [facility] Nitrite UA Negative Negative 02/04/2024 4:48 AM CDT [facility] Leukocyte Esterase Negative Negative 02/04/2024 4:48 AM CDT [facility] Urobilinogen UA Negative Negative mg/dL 02/04/2024 4:48 AM CDT [facility] RBC UA 0-2 None Seen, 0-2, 3-5 /HPF 02/04/2024 4:48 AM CDT [facility] WBC UA None Seen None Seen, 0-5 /HPF 02/04/2024 4:48 AM T [facility] Squamous Epithelial Cells UA 0-2 None Seen, 0-2, 3-5 /HPF 02/04/2024 4:48 AM CDT [facility] Urine URINE SPECIMEN OBTAINED BY CLEAN CATCH PROCEDURE / Unknown Collection / Unknown 02/04/2024 4:38 AM CDT 02/04/2024 4:41 AM CDT Narrative [facility] - 02/04/2024 4:48 AM CDT Lou Romero MD LAB - URINALYSIS ORD ERABLES [facility] [address] [place] [address], [facility] [phone] * STREP PNEUMONIAE ANTIGEN URINE (02/04/2024 4:38 AM CDT) Streptococcus pneumoniae Antigen Urine Negative Negative 02/05/2024 7:54 AM CDT [facility] Urine URINE / Unknown 02/04/2024 4 :38 AM CDT 02/04/2024 8:24 AM CDT Narrative [facility] - 02/05/2024 7:54 AM CDT [...] De Guzman MD LAB - MICROBIOLOGY O RDVouchrBLES Performing Organization Address City/[facility]/ZIP Co de Phone Number [facility] [address] [place] [address], [facility] [phone] * LEGIONELLA ANTIGEN URINE (02/04/2024 4:38 AM CDT) Pathologist [facility] Legionella Antigen Urine Negative Negative 02/05/2024 8:10 AM CDT [facility] Urine URINE / Unknown Collection / Unknown 02/04/2024 4:38 AM CDT 02/04/2024 4:41 AM CDT Narrative [facility] - 02/05/2024 8:10 AM CDT This assay detects Legionella pneumophila serogroup one (1) antigen. A negative test result does not rule out the possibility of Legionella infection due to other serogroups or species of Legionella. A positive result may indicate a recent or remote infection with serogroup 1. Lou Romero MD LAB - MICROBIOLOGY O [facility] Performing Organization Address [facility] Co de Phone Number [facility] [address] [place] [address], [facility] [phone] * (ABNORMAL) SLIDE SCAN HEMATOLOGY (02/04/2024 4:38 AM CDT) Only the most recent of2 resultswithin the time period is included. Pathologist [facility] RBC Morphology REVIEWED 02/04/2024 5:45 AM CDT [facility] Polychromatic Cells MODERATE(A) (none) 02/04/2024 5:45 AM CDT [facility] Rouleaux PRESENT(A) (none) 02/04/2024 5:45 AM CDT [facility] Giant Platelets PRESENT(A) (none) 5:45 AM CDT [facility] Large Platelets PRESENT(A) (none) 5:45 AM CDT [facility] Platelet Clumps PRESENT(A) (none) 5:45 AM CDT [facility] Blood BLOOD SPECIMEN / Unknown Venipuncture / Unknown 02/04/2024 4:38 AM CDT 02/04/2024 4:42 AM CDT Lou Romero MD LAB - HEMATOLOGY ORD ERABLES [facility] LABORATORY [facility] [address] [place] [address], [facility] [phone] * (ABNORMAL) CBC W AUTO DIFFERENTIAL (02/04/2024 4:38 AM CDT) Only the most recent of3 resultswithin the time period is included. WBC 9.4 4.0 - 10.7 x10E9/L 02/04/2024 5:45 AM [facility] RBC Count 2.64(L) 3.90 - 5.20 x10E12/L 02/04/2024 5:45 AM [facility] Hemoglobin 9.3(L) 11.9 - 15.8 g/dL 02/04/2024 5:45 AM [facility] Hematocrit 27.9(L) 34.8 - 46.1 % 02/04/2024 5:45 AM [facility] MCV 105.7(H) 80.0 - 98.0 fL 02/04/2024 5:45 AM [facility] MCH 35.2(H) 26.7 - 33.6 pg 02/04/2024 5:45 AM [facility] MCHC 33.3 31.7 - 36.3 g/dL 02/04/2024 5:45 AM [facility] RDW-CV 20.7(H) 11.3 - 14.8 % 02/04/2024 5:45 AM [facility] Platelet Count 02/04/2024 5:45 AM [facility] Comment:Platelets clumped on slide but appears adequate. Recommend repeat with a sodium citrate blue top tube. MPV 10.7 7.8 - 11.4 fL 02/04/2024 5:45 AM [facility] Neutrophil % 78.2(H) 41.0 - 74.0 % 02/04/2024 5:45 AM [facility] Lymphocyte % 12.9(L) 17.0 - 47.0 % 02/04/2024 5:45 AM [facility] Monocyte % 4.0 3.0 - 11.0 % 02/04/2024 5:45 AM [facility] Eosinophil % 2.0 0.0 - 7.0 % 02/04/2024 5:45 AM [facility] Basophil % 0.2 0.0 - 1.6 % 02/04/2024 5:45 AM [facility] Immature Granulocytes % 2.7(H) 0.0 - 1.0 % 02/04/2024 5:45 AM [facility] Neutrophil Absolute 7.35 1.60 - 7.50 x10E9/L 02/04/2024 5:45 AM [facility] Lymphocyte Absolute 1.21 1.00 - 4.40 x10E9/L 02/04/2024 5:45 AM [facility] Monocyte Absolute 0.38 0.15 - 1.00 x10E9/L 02/04/2024 5:45 AM [facility] Eosinophil Absolute 0.19 0.00 - 0.60 x10E9/L 02/04/2024 5:45 AM [facility] Basophil Absolute 0.02 0.00 - 0.13 x10E9/L 02/04/2024 5:45 AM [facility] NRBC 0.2(H) <=0.0 /100 WBC 02/04/2024 5:45 AM [facility] Blood BLOOD SPECIMEN / Unknown Venipuncture / Unknown 02/04/2024 4:38 AM CDT 02/04/2024 4:42 AM CDT Lou Romero MD LAB - HEMATOLOGY ORD ERABLES [address] [address], [facility] [phone] * CT ANGIO LOWER EXTREMITY RIGHT (02/04/2024 [...] time period is included. Pathologist [facility] Ventricular Rate 99 BPM [facility] MUSE Atrial Rate 99 BPM H MUSE P-R Interval 160 ms H MUSE QRS Duration ms 92 ms H MUSE Q-T Interval ms 382 ms [facility] MUSE QTC Calculation (Bezet) 490 ms [facility] MUSE Calculated P Mcdonald 63 degrees [facility] MUSE Calculated R Mcdonald 86 degrees [facility] MUSE Calculated T Mcdonald 63 degrees [facility] MUSE Interpretation EKG SINUS RHYTHM WITH PREMATURE ATRIAL COMPLEXES LOW VOLTAGE QRS PROLONGED QT ABNORMAL ECG WHEN COMPARED WITH ECG OF 28-JAN-2024 06:39, PREMATURE ATRIAL COMPLEXES ARE NOW PRESENT QRS AXIS SHIFTED RIGHT Confirmed by ELENO DEGROOT MD ([id number]) on 02/06/2024 11:07:30 AM [facility] MUSE 02/04/2024 2:26 AM CDT 02/06/2024 11:07 AM CDT Lou Romero MD ECG ORDERABLES [facility] MUSE * XR CHEST PA AND LATERAL (02/04/2024 12:06 AM CDT) Anatomical Region Laterality Modality Chest Radiographic Petrona ging 02/04/2024 9:50 AM CDT Impressions 02/04/2024 1:58 PM CDT IMPRESSION: Bilateral interstitial and airspace opacities. Considerations include pulmonary edema and/or multifocal/atypical pneumonia. Report dictated by Wolfgang Zabala MD (associate professor of radiology). I, Sidra Green MD have personally reviewed and interpreted this examination/study. > Interpreting Provider: Sidra Green MD on 02/04/2024 1:58 PM Narrative 02/04/2024 1:58 PM CDT PROCEDURE: XR CHEST 2VW, DATE/TIME OF EXAM: 02/04/2024 12:07 AM, LOCATION [facility] INDICATION: R09.02: Hypoxia ADDITIONAL CLINICAL INFORMATION: Ordering [...] DATE/TIME OF EXAM: 02/04/2024 12:07 AM, LOCATION [facility] INDICATION: R09.02: Hypoxia ADDITIONAL CLINICAL INFORMATION: Ordering [...] pneumonia. Report dictated by Wolfgang Zabala MD (associate professor of radiology). I, Sidra Green MD have personally reviewed and interpreted this examination/study. > Interpreting Provider: Sidra Green MD on 02/04/2024 1:58 PM Lou Romero MD DIAGNOSTIC IMAGING O RDERABLES * LIN DIRECT C3 (02/03/2024 11:49 PM CDT) Only the most recent of2 resultswithin the time period is included. Anti-C3 Lin POS 02/05/2024 5:46 AM CDT [facility] BLOOD BANK LAB Comment:TESTING PERFORMED BY [employer] REFERENCE LAB Blood Bank BLOOD SPECIMEN / Unknown Venipuncture / Unknown 02/03/2024 11:49 PM CDT 02/04/2024 12:05 AM CDT Letty Rosa APRN-COMPLIANCE ADVISOR LAB - BLOOD BANK ORDERABLES Performing Organization Address City/[facility]/ZIP Co de Phone Number [facility] BLOOD BANK LAB [address] [place] [address], [place] [phone] * LACTIC ACID BLOOD REFLEX TO REPEAT (02/03/2024 11:49 PM CDT) [facility] Lactic Acid-Stat 1.4 <=2.0 mmol/L 02/04/2024 1:55 AM CDT [facility]OSPITAL Blood BLOOD SPECIMEN / Unknown Venipuncture / Unknown 02/03/2024 11:49 PM CDT 02/03/2024 11:59 PM CDT Lou Romero MD LAB - CHEMISTRY CHRISTY DIAZ Performing Organization Address [facility]/ZIP Co de Phone Number [facility] [address] [place] [address], [place] [phone] * LIN DIRECT IGG (02/03/2024 11:49 PM CDT) Only the most recent of2 resultswithin the time period is included. [facility] IgG Lin POS 02/05/2024 5:46 AM CDT [facility] BLOOD BANK LAB Comment:TESTING PERFORMED BY [employer] Blood Bank BLOOD SPECIMEN / Unknown Venipuncture / Unknown 02/03/2024 11:49 PM CDT 02/04/2024 12:05 AM CDT Letty Rosa APRN-COMPLIANCE ADVISOR LAB - BLOOD BANK ORDERABLES Performing Organization Address City/[facility]/ZIP Co de Phone Number [facility] BLOOD BANK LAB [address] [place] [address], [place] [phone] * TROPONIN-I HIGH SENSITIVE BASELINE + 1HR (02/03/2024 11:49 PM CDT) [facility] Troponin I High Sensitive 3 <=14 ng/L 02/04/2024 1:42 AM CDT [facility]OSPITAL Blood BLOOD SPECIMEN / Unknown Venipuncture / Unknown 02/03/2024 11:49 PM CDT 02/03/2024 11:59 PM CDT Lou Romero MD LAB - CHEMISTRY CHRISTY EMILY Performing Organization Address City/[facility]/ZIP Co de Phone Number [facility] [address] [place] [address], [place] [phone] * ELUTION (02/03/2024 11:49 PM CDT) Only the most recent of2 resultswithin the time period is included. Elution NEG 02/05/2024 5:47 AM CDT [facility] BLOOD BANK LAB Comment:TESTING PERFORMED BY [employer] REFERENCE LAB Blood Bank BLOOD SPECIMEN / Unknown Venipuncture / Unknown 02/03/2024 11:49 PM CDT 02/04/2024 12:05 AM CDT Letty Rosa TOP CLEANER-COMPLIANCE ADVISOR LAB - BLOOD BANK ORDERABLES Performing Organization Address [facility]/ZIP Co de Phone Number [facility] BLOOD BANK LAB [address] [place] [address], [place] [phone] * CULTURE BLOOD (02/03/2024 11:49 PM CDT) Only the most recent of2 resultswithin the time period is included. Culture No growth day 5 HEAVEN 02/09/2024 2:31 AM CDT [facility] MICROBIOLOGY Blood PERIPHERAL BLOOD / Unknown Venipuncture / Unknown 02/03/2024 11:49 PM CDT 02/03/2024 11:58 PM CDT Lou Romero MD LAB - MICROBIOLOGY O RDERABLES [facility] MICROBIOLOG[facility] [address] [place] [address], [place] [phone] * TYPE + SCREEN PANEL (02/03/2024 11:49 PM CDT) Only the most recent of2 resultswithin the time period is included. Antibody Screen POS 3:06 AM CDT [facility] BLOOD BANK LAB ABO Rh A POS 02/04/2024 3:06 AM CDT [facility] BLOOD BANK LAB Comment:Previously: NRD NRD 02/04/24 00:24 Blood Bank BLOOD SPECIMEN / Unknown Venipuncture / Unknown 02/03/2024 11:49 PM CDT 02/04/2024 12:05 AM CDT Letty Rosa APRN-COMPLIANCE ADVISOR LAB - BLOOD BANK ORDERABLES [facility] BLOOD BANK LAB [address] [place] [address], [facility] [phone] * LIN DIRECT (02/03/2024 11:49 PM CDT) Only the most recent of2 resultswithin the time period is included. Direct Lin (NITESH) POS 02/11/2024 6:33 PM CDT [facility] BLOOD BANK LAB Blood Bank BLOOD SPECIMEN / Unknown Venipuncture / Unknown 02/03/2024 11:49 PM CDT 02/04/2024 12:05 AM CDT Letty Rosa APRN-COMPLIANCE ADVISOR LAB - BLOOD BANK ORDERABLES [facility] BLOOD BANK LAB [address] [place] [address], [place] [phone] * ANTIBODY IDENTIFICATION (02/03/2024 11:49 PM CDT) Only the most recent of2 resultswithin the time period is included. Antibody 1 POS, Cold Auto Antibody 02/05/2024 5:45 AM CDT [facility] BLOOD BANK LAB Comment:TESTING PERFORMED BY [employer] REFERENCE LAB Blood Bank BLOOD SPECIMEN / Unknown Venipuncture / Unknown 02/03/2024 11:49 PM CDT 02/04/2024 12:05 AM CDT Letty Rosa APRN-COMPLIANCE ADVISOR LAB - BLOOD BANK ORDERABLES [facility] BLOOD BANK LAB [address] [place] [address], [facility] [phone] * (ABNORMAL) COMPREHENSIVE METABOLIC PANEL (02/03/2024 11:49 PM [facility]) Only the most recent of4 resultswithin the time period is included. BUN <5(L) 7 - 26 mg/dL 02/04/2024 1:44 AM [facility] Creatinine 0.29(L) 0.56 - 0.96 mg/dL 02/04/2024 1:44 AM [facility] Sodium 123(LL) 136 - 145 mmol/L 02/04/2024 1:44 AM [facility] Potassium 3.0(L) 3.5 - 4.5 mmol/L 02/04/2024 1:44 AM [facility] Chloride 92(L) 98 - 107 mmol/L 02/04/2024 1:44 AM [facility] CO2 22 22 - 29 mmol/L 02/04/2024 1:44 AM [facility] Glucose 123(H) 70 - 115 mg/dL 02/04/2024 1:44 AM [facility] Calcium 8.0(L) 8.4 - 10.2 mg/dL 02/04/2024 1:44 AM [facility] Protein Total 6.1 6.0 - 8.3 g/dL 02/04/2024 1:44 AM [facility] Albumin 2.4(L) 3.4 - 5.0 g/dL 02/04/2024 1:44 AM [facility] Bilirubin Total 4.0(H) 0.2 - 1.2 mg/dL 02/04/2024 1:44 AM [facility] Alkaline Phosphatase 313(H) 40 - 150 U/L 02/04/2024 1:44 AM [facility] ALT 23 5 - 55 U/L 02/04/2024 1:44 AM [facility] AST 83(H) 5 - 34 U/L 02/04/2024 1:44 AM CDT [facility] Anion Gap 9 6 - 16 02/04/2024 1:44 AM CDT [facility] BUN/Creatinine Ratio <17 7 - 23 02/04/2024 1:44 AM CDT [facility] Osmolality Calculated <255(L) 275 - 295 mOsm/kg 02/04/2024 1:44 AM CDT [facility] Albumin/Globulin Ratio 0.6(L) 1.1 - 2.3 02/04/2024 1:44 AM CDT [facility] eGFR by CKD-EPI >90 >=90 mL/min/1.7 3 m2 02/04/2024 1:44 AM CDT [facility] Blood BLOOD SPECIMEN / Unknown Venipuncture / Unknown 02/03/2024 11:49 PM CDT 02/03/2024 11:59 PM CDT Lou Romero MD LAB - CHEMISTRY CHRISTY DIAZ [facility] Organization Address City/State/ZIP Co de Phone Number [address] [address], [facility] [phone] * PREPARE (CROSSMATCH) RBC UNIT(S), 2 Units (02/01/2024 1:17 AM CDT) Unit Description AS1 LR PRBC [facility] BLOOD BANK LAB Unit ABO A [facility] BLOOD BANK LAB Unit Rh POS [facility] BLOOD BANK LAB Product Number R02 [facility] B LOOD BANK LAB Unit Donor # [id number] [facility] BLOOD BANK LAB Unit Status released [facility] BLOO D BANK LAB Product Code [id number] [facility] OD BANK LAB Blood Type Barcode 6200 [facility] BLOOD BANK LAB Expiration Date S BLOOD BANK LAB Unit Description AS1 LR PRBC [facility] BLOOD BANK LAB Unit ABO A [facility] BLOOD BANK LAB Unit Rh POS [facility] BLOOD BANK LAB Product Number R02 [facility] B LOOD BANK LAB Unit Donor # [id number] [facility] BLOOD BANK LAB Unit Status released [facility] BLOO D BANK LAB Product Code [id number] [facility] BLO OD BANK LAB Blood Type Barcode 6200 [facility] BLOOD BANK LAB Expiration Date S BLOOD BANK LAB Blood Bank BLOOD SPECIMEN / Unknown 01/28/2024 4:12 AM CDT Melo Santillan MD LAB - BLOOD BANK ORD ERABLES [facility] BLOOD BANK LAB [address] [place] [address], [place] [phone] * (ABNORMAL) GLUCOSE - POINT OF CARE (01/31/2024 8:39 AM CDT) Only the most recent of2 resultswithin the time period is included. Glucose WB/POC 210(H) 70 - 115 mg/dL 01/31/2024 8:44 AM CDT [facility]OSPITAL Specimen Type Arterial 01/31/2024 8:44 AM CDT [facility] Blood BLOOD SPECIMEN / Unknown 01/31/2024 8:39 AM CDT 01/31/2024 8:44 AM CDT Sherrie Marie MD LAB - POINT OF CARE ORDERABLES Performing Organization Address [facility]/ZIP Co de Phone Number [facility] [address] [place] [address], [place] [phone] * (ABNORMAL) PHOSPHORUS BLOOD (01/30/2024 6:20 AM CDT) Only the most recent of2 resultswithin the time period is included. Phosphorus 1.8(L) 2.9 - 5.1 mg/dL 01/30/2024 7:18 AM CDT [facility] Blood BLOOD SPECIMEN / Unknown Lab Venipuncture / Unknown 01/30/2024 6:20 AM CDT 01/30/2024 6:52 AM CDT Sherrie Marie MD LAB - CHEMISTRY CHRISTY DIAZ Performing Organization Address City/[facility]/ZIP Co de Phone Number [facility] [address] [place] [address], [place] [phone] * CT ANGIO CHEST PULM EMBOLISM (01/29/2024 7:10 AM CDT) Anatomical Region Laterality Modality Chest Computed Tomogra phy 01/29/2024 7:27 AM CDT Impressions 01/29/2024 4:30 PM CDT Impression: 1.No evidence of acute pulmonary embolism. 2.Consolidative changes and groundglass opacities involving both lung bases and to a lesser extent the upper lobes likely representing pneumonia/aspiration. > Dictated by Demetrio Radford MD, PhD (associate professor of radiology) IRamsey have personally reviewed and interpreted this examination/study. > Interpreting Provider: Ramsey Matos on 01/29/2024 4:30 PM Narrative 01/29/2024 4:30 PM CDT PROCEDURE: CT ANGIO CHEST PULM EMBOLISM, DATE/TIME OF EXAM: 01/29/2024 7:11 AM, LOCATION [facility] INDICATION: R09.02: Hypoxia ADDITIONAL CLINICAL INFORMATION: Ordering [...] DATE/TIME OF EXAM: 01/29/2024 7:11 AM, LOCATION [facility] INDICATION: R09.02: Hypoxia ADDITIONAL CLINICAL INFORMATION: Ordering [...] > Dictated by Demetrio Radford MD, PhD (associate professor of radiology) IRamsey have personally reviewed and interpreted this [...] Ionized 1.06 mmol/L 01/29/2024 5:31 AM CDT [facility]OSPITAL pH 7.31(L) 7.35 - 7.45 pH 01/29/2024 5:31 AM CDT [facility] LABORATORY [facility] Ionized Calcium pH Adjusted 1.02(L) 1.19 - 1.34 mmol/L 01/29/2024 5:31 AM CDT [facility] LABORATORY [facility] Blood BLOOD SPECIMEN / Unknown Lab Venipuncture / Unknown 01/29/2024 4:53 AM CDT 01/29/2024 5:28 AM CDT Gabbie Olivier DO LAB - CHEMISTRY ORDMagalis DIAZ Performing Organization Address [facility]/State/ZIP Co de Phone Number [facility] [address] [place] [address], [facility] [phone] * (ABNORMAL) IRON + TRANSFERRIN PANEL (01/29/2024 4:53 AM CDT) Iron 68 40 - 150 ug/dL 01/29/2024 5:55 AM CDT [facility] Transferrin 152(L) 174 - 382 mg/dL 01/29/2024 5:55 AM CDT [facility] Transferrin Saturation % 36 16 - 50 % 01/29/2024 5:55 AM CDT [facility] TIBC Calculated 190(L) 240 - 450 ug/dL 01/29/2024 5:55 AM CDT [facility] Blood BLOOD SPECIMEN / Unknown Lab Venipuncture / Unknown 01/29/2024 4:53 AM CDT 01/29/2024 5:28 AM CDT Gabbie Olivier DO LAB - CHEMISTRY ORDMagalis DIAZ Performing Organization Address City/[facility]/ZIP Co de Phone Number [address] [address], [place] [phone] * TSH REFLEX FREE T4 (01/29/2024 4:52 AM CDT) TSH 3.308 0.350 - 4.940 uIU/mL 01/29/2024 6:35 AM CDT [facility] Blood BLOOD SPECIMEN / Unknown Lab Venipuncture / Unknown 01/29/2024 4:52 AM CDT 01/29/2024 5:33 AM CDT Gabbie Magalis Olivier DO LAB - CHEMISTRY ORDE EMILY Performing Organization Address [facility]/ZIP Co de Phone Number [address] [address], [place] [phone] * FOLATE (01/29/2024 4:52 AM CDT) Folate 12.6 7.0 - 31.4 ng/mL 01/29/2024 6:35 AM CDT [facility] Blood BLOOD SPECIMEN / Unknown Lab Venipuncture / Unknown 01/29/2024 4:52 AM CDT 01/29/2024 5:33 AM CDT Gabbie Olivier DO LAB - CHEMISTRY ORDMagalis MILLERNEERU Performing Organization Address [facility]/ZIP Co de Phone Number [address] [address], [place] [phone] * VITAMIN B12 (01/29/2024 4:52 AM CDT) Vitamin B12 393 213 - 816 pg/mL 01/29/2024 6:35 AM CDT [facility] Blood BLOOD SPECIMEN / Unknown Lab Venipuncture / Unknown 01/29/2024 4:52 AM CDT 01/29/2024 5:33 AM CDT Gabbie Olivier DO LAB - CHEMISTRY ORDE EMILY [facility] [address] [place] [address], [facility] [phone] * XR PELVIS W RIGHT HIP 2VW [...] intertrochanteric fracture of hip, right, initial encounter ([facility]) Additional History: COMPARISON: None. TECHNIQUE: 3 views [...] intertrochanteric fracture of hip, right, initial encounter ([facility]) Additional History: COMPARISON: None. TECHNIQUE: 3 views [...] ABEBE SURGERY (01/28/2024 11:44 AM CDT) Narrative [facility] RADIOLOGY - 01/28/2024 11:44 AM CDT Fluoroscopy was used for this exam in the OR. Please see the Operative report. Elissa Reynoso MD FLUOROSCOPY ORDERAB LES [facility] RADIOLOGY * ETT LINE PERFORMABLE (01/28/2024 10:54 AM CDT) Narrative Johnna Beckford APRN-CRNA - 01/28/2024 10:54 AM CDT Johnna Beckford APRN-CRNA 01/28/2024 10:54 AM Endotracheal Tube Placement: Patient Location: OR. Intubation Event Date/Time: 01/28/2024 10:28 AM Procedure: intubation ([id number]) Procedure Section: Sedation: under general anesthesia. Indications [...] A POS 01/28/2024 9:5 7 AM CDT [facility] BLOOD BANK LAB Blood Bank BLOOD SPECIMEN / Unknown Venipuncture / Unknown 01/28/2024 8:53 AM CDT 01/28/2024 9:19 AM CDT Melo Santillan MD LAB - BLOOD BANK ORD ERABLES [facility] BLOOD BANK LAB [address] [place] [address], [facility] [phone] * XR KNEE RIGHT 2VW OR LESS (01/28/2024 5:56 AM CDT) Only the most recent of2 resultswithin the time period is included. Anatomical Region Laterality Modality Lower Extremity Radiographic Petrona ging 01/28/2024 5:56 AM CDT Narrative 01/28/2024 7:58 AM CDT EXAMINATION: XR KNEE RIGHT 2VW OR LESS DATE/TIME OF EXAM: 01/28/2024 5:56 AM, LOCATION [facility] HISTORY: M25.551: Right hip pain traction COMPARISON: No prior study is available for comparison. FINDINGS/IMPRESSION: A traction pin has been placed through the proximal shaft of the tibia. No acute fracture or dislocation. The knee joint space is preserved. No joint effusion is seen. Bone density and texture are normal. No significant soft tissue swelling is present. Report dictated by Colby Vázquez MD (associate professor of radiology). Jeannie Castaneda MD have personally reviewed and interpreted this examination/study. > Interpreting Provider: Jeannie Gracia MD on 01/28/2024 7:58 AM Procedure Note Jeannie Gracia MD - 01/28/2024 EXAMINATION: XR KNEE RIGHT 2VW OR LESS DATE/TIME OF EXAM: 01/28/2024 5:56 AM, LOCATION [facility] HISTORY: M25.551: Right hip pain traction COMPARISON: No prior study is available for comparison. FINDINGS/IMPRESSION: A traction pin has been placed through the proximal shaft of the tibia. No acute fracture or dislocation. The knee joint space is preserved. No joint effusion is seen. Bone density and texture are normal. Nosignificant soft tissue swelling is present. Report dictated by Colby Vázquez MD (associate professor of radiology). Jeannie Castaneda MD have personally reviewed and interpreted this examination/study. > Interpreting Provider: Jeannie Gracia MD on 01/28/2024 7:58 AM Melo Santillan MD DIAGNOSTIC IMAGING O RDERABLES * HCG BETA BLOOD QUANTITATIVE (01/28/2024 5:16 AM CDT) [facility] Beta-hCG Total Quantitative <3 mIU/mL 01/28/2024 9:14 AM CDT [facility] Comment: HCG Numeric Result Interpretation: Non- [...] CDT 01/28/2024 5:21 AM CDT Neda Thorpe APRN-COMPLIANCE ADVISOR LAB - CHEMI STRY ORDERABLES [address] [address], [place] [phone] * (ABNORMAL) PTT [facility] (01/28/2024 3:56 AM CDT) [facility] APTT 47.4(H) 23.0 - 38.4 Seconds 01/28/2024 4:33 AM CDT [facility] Comment:Suggested therapeuti c range for full dose I.V. unfractionated heparin therapy for venous thromboembolism is 71 to 109 seconds. Blood BLOOD SPECIMEN / Unknown Venipuncture / Unknown 01/28/2024 3:56 AM CDT 01/28/2024 4:08 AM CDT Melo Santillan MD LAB - COAGULATION OR DERABLES [address] [address], [place] [phone] * HEMOGLOBIN A1C (01/28/2024 3:56 AM CDT) Hemoglobin A1c 4.6 <=5.6 % 01/28/2024 8:50 AM T [facility] Estimated Average Glucose 85 mg/dL 01/28/2024 8:50 AM [facility] Comment: HbA1c Interpretation: Normal : < 5.7% Pre-diabetes: 5.7-6.4% Diabetes: Equal to or greater than 6.5% Test results diagnostic of diabetes should be repeated for confirmation. Treatment target values recommended by ADA and other clinical organizations should be used to evaluate metabolic control in patients. Reference: [place] [employer], Standards of Care in Diabetes [...] Santillan MD LAB - CHEMISTRY CHRISTY DIAZ [facility] Organization Address City/State/ZIP Co de Phone Number [address] [address], [facility] [phone] * (ABNORMAL) VITAMIN D 25-HYDROXY (01/28/2024 3:56 AM CDT) Vitamin D, 25 Hydroxy 5.5(L) 30.0 - 80.0 ng/mL 01/28/2024 4:52 AM CDT [facility] Comment: The recommendations for 25-Hydroxy Vitamin [...] Santillan MD LAB - CHEMISTRY DENAMagalis EMILY [facility] Organization Address City/State/ZIP Co de Phone Number [facility] [address] [place] [address], [facility] [phone] * XR STRESS ANY JOINT (01/28/2024 3:07 [...] angulation. Report dictated by Colby Vázquez MD (associate professor of radiology). Jeannie Castaneda MD have personally reviewed and [...] angulation. Report dictated by Colby Vázquez MD (associate professor of radiology). Jeannie Castaneda MD have personally reviewed and [...] angulation. Report dictated by Colby Vázquez MD (associate professor of radiology). IJeannie MD have personally reviewed and interpreted this examination/study. > Interpreting Provider: Jeannie Gracia MD on 01/28/2024 7:09 AM Narrative 01/28/2024 7:09 AM CDT EXAMINATION: XR PELVIS 1 OR 2VW DATE/TIME OF EXAM: 01/28/2024 2:48 AM, LOCATION [facility] HISTORY: M25.551: Right hip pain poor positioning [...] DATE/TIME OF EXAM: 01/28/2024 2:48 AM, LOCATION [facility] HISTORY: M25.551: Right hip pain poor positioning [...] angulation. Report dictated by Colby Vázquez MD (associate professor of radiology). I, Jeannie Gracia MD have personally reviewed and interpreted this examination/study. > Interpreting Provider: Jeannie Gracia MD on 01/28/2024 7:09 AM Melo Santillan MD DIAGNOSTIC IMAGING O RDERABLES * UT DESTRUCT BENIGN LESION, 1-14 (12/22/2023 1:14 PM CDT) Narrative Nando Eugene MD - 12/22/2023 1:14 PM CDT Navin Ruffin MD 12/22/2023 1:15 PM Diagnosis and treatment options discussed. Cryotherapy (Liquid Nitrogen) to 1 lesion(s) for 10 seconds. Number of cycles: 1-2. Wound care reviewed. Locations: R [facility] Navin Ruffin MD Dermatology PGY-4 Nando Eugene MD PROCEDURE/MINOR SURG ICAL ORDERABLES * CALPROTECTIN FECAL (09/02/2018 8:00 AM TAPERING MACHINE OPERATOR) Calprotectin Fecal <16 0 - 120 ug/g [facility] INSURANCE BILL Comment: Concentration Interpretation Follow-Up <16 - 50 ug/g Normal None >50 -120 ug/g Borderline Re-evaluate in 4-6 weeks >120 ug/g Abnormal Repeat as clinically indicated Stool STOOL SPECIMEN / Unknown 09/02/2018 8:00 AM TAPERING MACHINE OPERATOR 09/02/2018 Narrative Resulting Agency Comment [address] [phone] Virginia Reardon PA-C LAB - BODY FLUID ORDERABLES [facility] INSURANCE BILL [address] [place] [address] * PANCREATIC ELASTASE FECES (09/02/2018 8:00 AM TAPERING MACHINE OPERATOR) Pancreatic Elastase Feces >500 >200 ug Elast./g [facility] INSURANCE BILL Comment: Severe Pancreatic Insufficiency: <100 Moderate Pancreatic Insufficiency: 100 - 200 Normal: >200 09/02/2018 8:00 AM TAPERING MACHINE OPERATOR 09/02/2018 Narrative Resulting Agency Comment [facility] [address] [phone] Virginia Reardon PA-C LAB - BODY FLUID ORDERABLES Performing Organization Address [facility] Co de Phone Number [facility] INSURANCE BILL [address] [place] [address] * TISSUE TRANSGLUTAMINASE AB IGA (08/31/2018 11:04 AM TAPERING MACHINE OPERATOR) TTG Antibody IgA <2 0 - 3 U/mL [facility] INSURANCE BILL Comment: Negative 0 - 3 Weak Positive 4 - 10 Positive >10 . Tissue Transglutaminase (tTG) has been identified as the endomysial antigen. Studies have demonstr- ated that endomysial IgA antibodies have over 99% specificity for gluten sensitive enteropathy. Blood BLOOD SPECIMEN / Unknown 08/31/2018 11:04 AM TAPERING MACHINE OPERATOR 08/31/2018 Narrative Resulting Agency Comment [facility] [address] [facility] [phone] Virginia Reardon PA-C LAB - SEROLOGY OR DERABLES Performing Organization Address [facility] de Phone Number [facility] INSURANCE BILL [address] [place] [address] * TSH (08/31/2018 11:04 AM TAPERING MACHINE OPERATOR) Only the most recent of2 resultswithin the time period is included. TSH 1.500 0.450 - 4.500 uIU/mL [facility] INSURANCE BILL Blood BLOOD SPECIMEN / Unknown 08/31/2018 11:04 AM TAPERING MACHINE OPERATOR 08/31/2018 Narrative Resulting Agency Comment [facility] [address] [facility] [phone] Virginia Reardon PA-C LAB - CHEMISTRY O RDERABLES Performing Organization Address [facility] Co de Phone Number [facility] INSURANCE BILL [address] [place] [address] * T4 FREE (08/31/2018 11:04 AM TAPERING MACHINE OPERATOR) Only the most recent of2 resultswithin the time period is included. T4 Free 1.13 0.82 - 1.77 ng/dL [facility] INSURANCE BILL Blood BLOOD SPECIMEN / Unknown 08/31/2018 11:04 AM TAPERING MACHINE OPERATOR 08/31/2018 Narrative Resulting Agency Comment [facility] [address] [facility] [phone] Virginia Reardon PA-C LAB - CHEMISTRY O RDERABLES Performing Organization Address [facility]/ZIP Co de Phone Number [facility] INSURANCE BILL [address] [place] [address] * (ABNORMAL) IGA BLOOD (08/31/2018 11:04 AM TAPERING MACHINE OPERATOR) IgA Quantitative 505(H) 87 - 352 mg/dL [facility] INSURANCE BILL Blood BLOOD SPECIMEN / Unknown 08/31/2018 11:04 AM TAPERING MACHINE OPERATOR 08/31/2018 Narrative Resulting Agency Comment [facility] [address] [facility] [phone] Virginia Reardon PA-C LAB - CHEMISTRY O RDERABLES Performing Organization Address [facility] Co de Phone Number [facility] INSURANCE BILL [address] [place] [address] * IMAGING/RADIOLOGY/XRAY RESULTS ORDER (08/16/2018 7:39 AM TAPERING MACHINE OPERATOR) Only the most recent of2 resultswithin the time period is included. Anatomical Region Laterality Modality Other Narrative 08/16/2018 7:39 AM TAPERING MACHINE OPERATOR Ordered by an unspecified provider. Scanned Document IMAGING * US THYROID (02/11/2018 3:20 PM CDT) Anatomical Region Laterality Modality Chest Ultrasound 02/11/2018 3:13 PM CDT Impressions 02/11/2018 3:45 PM CDT IMPRESSION: 1.Diffusely increased hyperemia of the thyroid gland. Clinical correlation for hyperthyroidism is recommended. 2.No discrete thyroid nodule is identified. Dictated by Mike Bell MD (Student Union Consultant). I, Dr. LE HADLEY M.D. have personally [...] is identified. Dictated by Mike Bell MD (Student Union Consultant). I, Dr. LE HADLEY M.D. have personally [...] Toribio Moya MD US ORDERABLES Care Teams Employee Health Rn Relationship Specialty Start Date End Date Kristian Granda MD PCP - General 08/24/18
--- OUTSIDE RECORDS SUMMARY | 2024-09-20 16:35 | XMS_ITS | Referral Summary ---
Author Organization [facility] Address [address] [place] [address] Care Team Providers Care Acting Instructor Name Role Phone Kristian Granda MD Primary Care Provider [phone] Source Comments [facility],non-owned Affiliates and Associated Physician Practices is amultiple site organization consisting of ambulatory clinics and hospital sitesin [place], [place], [place] and [place]. This disclosure is being madepursuant to the Care Everywhere program and may not contain all information available regarding this patient. Last updated 18.[facility] [employer] Switch Encounters Date Type Department Care Team Description 09/15/2024 Telephone [facility] - Neurology [address] [place] [phone] Justina Beltre APRN-CNP Results 09/13/2024 Travel 09/13/2024 8:27 AM GO GO DANCER - 09/13/2024 11:59 PM GO GO DANCER Hospital Encounter [facility] EEG/EMG [address] [place] [phone] Justina Beltre APRN-CNP Discharge Disposition: Home or Self Care 08/27/2024 Travel 08/27/2024 8:24 AM GO GO DANCER - 08/27/2024 11:59 PM GO GO DANCER Hospital Encounter [facility] MRI [address] [place] [address] Justina Beltre APRN-CNP Discharge Disposition: Home or Self Care 08/16/2024 Travel 08/16/2024 11:00 AM GO GO DANCER Office Visit [facility] - Neurology [address] [place] [phone] Justina Beltre APRN-CNP Seizures (HCC) (Primary Dx) 07/06/2024 9:42 AM GO GO DANCER - 07/06/2024 11:59 PM GO GO DANCER Hospital Encounter [facility] DIAGNOSTIC RAD CSM [address] [address] Elissa Reynoso MD Discharge Disposition: Home or Self Care 07/06/2024 Travel 07/06/2024 10:15 AM GO GO DANCER Office Visit [facility] - Orthopedics [address] [place] [phone] Elissa Reynoso MD Adams, Karra N, APRN-GRAPHICS PRODUCTION SPECIALIST Closed displaced intertrochanteric fracture of right femur with routine healing, subsequent encounter (Primary Dx) 06/29/2024 Orders Only [facility] - Orthopedics [address] [place] [phone] Elissa Reynoso MD Closed intertrochanteric fracture of [...] UTI Immunizations Name Administration Dates Next Due [employer] primary Monoval ent 12+ yr 0.3ml 04/25/2022,01/18/2022 [...] Recorded Patient Health Questionnaire-2 Score 0 07/06/2024 [facility] [place] of Occupat ional Health - Occupational Stress [...] place to sleep or slept in a usp (including now)? No 01/28/2024 Sex and Gender Information Value Date Recorded Sex Assigned at Not on file Gender Identity Not on file Sexual Orientation Not on file Last Filed Vital Signs Vital Sign Reading Time Taken Comments Blood Pressure 122/76 08/16/2024 10:55 AM GO GO DANCER Pulse 102 08/16/2024 10:55 AM GO GO DANCER Temperature 36.6 C (97.8 F) 05/18/2024 3:57 PM CDT Respiratory Rate 17 05/18/2024 3:57 PM CDT Oxygen Saturation 99% 08/16/2024 10:55 AM GO GO DANCER Inhaled Oxygen Concentration 60% 01/30/2024 5 :29 AM CDT Weight 64.2 kg (141 lb 8 oz) 08/16/2024 10:55 AM GO GO DANCER Height 160 cm (5' 3 ) 08/16/2024 10:55 AM GO GO DANCER Body Mass Index 25.07 08/16/2024 10:55 AM GO GO DANCER Functional Status Functional Status Response Date of [...] Office Visit [facility] - Pulmonology [address] [place] [address], [facility] [place] [phone] Samm Barrow MD [address] [place] [address] OF PULMONARY MED [address] [place] [phone] Medical Devices Implanted Type Area Fish Butcher Device Identifier Shelf Expiration Date Model / Serial / Lot [id number] 11mm/130 Deg. Ti Crystal Tfna Implanted:Qty: 1 on 01/28/2024 by Elissa Reynoso MD at [facility] Right: Hip 08/18/2031 [id number] / / [id number] 04.038.190s Tfna Fenestrated Screw 90 Mm Implanted:Qty: 1 on 01/28/2024 by Elissa Reynoso MD at [facility] Right: Hip 10/16/2033 [id number] / / [id number] 04.045.032 5.0 Locking Screw Implanted:Qty: 1 on 01/28/2024 by Elissa Reynoso MD at [facility] Right: Hip [id number] / / Explanted Type Area Fish Butcher Device Identifier Shelf Expiration Date Model / Serial / Lot Bit Drl 10mm 300mm Tfn-Adv Lg Qc Crystal Explanted:Qty: 1 on 01/28/2024 at [facility] 03.037.021 / / Procedures Procedure Name Priority Date/Time Associated Diagnosis Comments EEG EXTENDED MONITORING > 1 HOUR Routine 09/13/2024 9:51 AM GO GO DANCER Seizures (HCC) MRI BRAIN WO CONTRAST Routine 08/27/2024 9:01 AM GO GO DANCER Seizures (HCC) XR HIP RIGHT 2VW OR MORE Routine 07/06/2024 9:55 AM GO GO DANCER Closed intertrochanteric fracture of hip, right, initial encounter (HCC) RENAL FUNCTION PANEL Routine 02/10/2024 3:32 PM CDT Hypophosphatemia from Last 3 Months or Most Recently Relevant to Health Maintenance Results * EEG EXTENDED MONITORING > 1 HOUR (09/13/2024 9:51 AM GO GO DANCER) Narrative Abril Manning MD - 09/13/2024 9:51 AM GO GO DANCER Abril Manning MD 09/20/2024 8:25 AM EEG [...] Generalized slowing is suggestive of mild encephalopathy Slivia Richmond MD I personally interpreted the study and formulated the report. Abril Manning MD Justina Beltre TREATING AND PUMPING SUPERVISOR-[facility] NEUROLOGY ORDMagalis DIAZ * MRI Brain Wo Contrast (08/27/2024 9:01 AM GO GO DANCER) Anatomical Region Laterality Modality Head Magnetic Resonan ce 08/30/2024 9:53 AM GO GO DANCER Impressions 09/03/2024 2:05 PM GO GO DANCER IMPRESSION: 1.There are suspected small foci of [...] is dictated by Wilder Hyde MD (radiology clerk) I, Trenton Dexter MD have personally reviewed and interpreted this examination/study. > Interpreting Provider: Trenton Dexter MD on 09/03/2024 2:05 PM Narrative 09/03/2024 2:05 PM GO GO DANCER PROCEDURE: MRI BRAIN WO CONTRAST, DATE/TIME OF EXAM: 08/27/2024 9:01 AM, LOCATION [facility] INDICATION: R56.9: Seizures (HCC) ADDITIONAL CLINICAL [...] DATE/TIME OF EXAM: 08/27/2024 9:01 AM, LOCATION [facility] INDICATION: R56.9: Seizures (HCC) ADDITIONAL CLINICAL [...] is dictated by Wilder Hyde MD (radiology clerk) ITrenton MD have personally reviewed and interpretedthis examination/study. > Interpreting Provider: Trenton Dexter MD on 09/03/2024 2:05 PM Justinaluli Millerana GRIMESN-GRAPHICS PRODUCTION SPECIALIST MR ORDERABLES * XR Hip Right 2Vw or More (07/06/2024 9:55 AM GO GO DANCER) Anatomical Region Laterality Modality Pelvis, Lower Extremity [facility] 07/06/2024 1:39 PM GO GO DANCER Impressions 07/06/2024 1:41 PM GO GO DANCER IMPRESSION: Overall no significant interval change in appearance of the right hip since the prior study. Report dictated by Valeria Lowry MD (radiology clerk). > Interpreting Provider: Evelio Nunez MD on 07/06/2024 1:41 PM Narrative 07/06/2024 1:41 PM GO GO DANCER PROCEDURE: XR HIP RIGHT 2VW OR MORE DATE/TIME OF EXAM: 07/06/2024 9:55 AM CLINICAL INFORMATION: None relevant/not provided if blank. Indication: S72.141A: Closed intertrochanteric fracture of hip, right, initial encounter ([facility]) Additional History: COMPARISON: Right hip radiographs dated [...] intertrochanteric fracture of hip, right, initial encounter ([facility]) Additional History: COMPARISON: Right hip radiographs dated [...] Report dictated by Valeria Lowry MD (radiology clerk). > Interpreting Provider: Evelio Nunez MD on 07/06/2024 1:41 PM Elissa Reynoso MD DIAGNOSTIC IMAGING ORDERABLES * (ABNORMAL) RENAL FUNCTION PANEL (02/10/2024 3:32 PM CDT) BUN <5(L) 7 - 26 mg/dL 02/10/2024 4:57 PM CDT [facility] Creatinine 0.29(L) 0.56 - 0.96 mg/dL 02/10/2024 4:57 PM [facility] Sodium 128(L) 136 - 145 mmol/L 02/10/2024 4:57 PM [facility] Potassium 5.1(H) 3.5 - 4.5 mmol/L 02/10/2024 4:57 PM [facility] Chloride 98 98 - 107 mmol/L 02/10/2024 4:57 PM [facility] CO2 26 22 - 29 mmol/L 02/10/2024 4:57 PM [facility] Glucose 106 70 - 115 mg/dL 02/10/2024 4:57 PM [facility] Albumin 2.5(L) 3.4 - 5.0 g/dL 02/10/2024 4:57 PM [facility] Calcium 8.3(L) 8.4 - 10.2 mg/dL 02/10/2024 4:57 PM [facility] Phosphorus 2.4(L) 2.9 - 5.1 mg/dL 02/10/2024 4:57 PM [facility] Anion Gap 4(L) 6 - 16 02/10/2024 4:57 PM [facility] BUN/Creatinine Ratio <17 7 - 23 02/10/2024 4:57 PM [facility] Osmolality Calculated <264(L) 275 - 295 mOsm/kg 02/10/2024 4:57 PM [facility] eGFR by CKD-EPI >90 >=90 mL/min/1.7 3 m2 02/10/2024 4:57 PM [facility] Blood BLOOD SPECIMEN / Unknown Lab Venipuncture / Unknown 02/10/2024 3:32 PM CDT 02/10/2024 4:27 PM T Ruddy Isabel MD LAB - CHEMISTRY ORDERABLES [facility] [address] [place] [address], [place] [phone] from Last 3 Months or Most Recently Relevant to Health Maintenance Advance Directives * Full Code (Latest Code Status on File) Date Activated Date Inactivated Comments 02/04/2024 6:39 AM 02/04/2024 8:03 PM * Full Code Date Activated Date Inactivated Comments 01/28/2024 4:34 AM 01/31/2024 6:28 PM Care Teams Acting Instructor Relationship Specialty Start Date End Date Kristian Granda MD PCP - General 08/24/18
--- OUTSIDE RECORDS SUMMARY | 2024-09-20 16:35 | XMS_ITS | Clinical Summary ---
Author Organization [facility] [employer] Address [address] [place] [address] Care Team Providers Care Documentation Manager Name Role Phone Kristian Granda MD Primary Care Provider [phone] Source Comments [facility] [employer],non-owned Affiliates and Associated Physician Practices is amultiple site organization consisting of ambulatory clinics and hospital sitesin [place], [place] and [place]. This disclosure is being madepursuant to the Care Everywhere program and may not contain all information available regarding this patient. Last updated 18.[facility] [employer] Allergies Active Allergy Reactions Criticality Noted Date [...] 09/15/2024 Telephone [facility] - Neurology [address] [place] [phone] Justina Beltre APRN-CNP Results 09/13/2024 8:27 AM FIRST RESPONDER - 09/13/2024 11:59 PM FIRST RESPONDER Hospital Encounter [facility] EEG/EMG [address] [place] [address] Justina Beltre APRN-CNP Discharge Disposition: Home or Self Care 09/13/2024 Travel 08/27/2024 8:24 AM FIRST RESPONDER - 08/27/2024 11:59 PM FIRST RESPONDER Hospital Encounter [facility] MRI [address] [place] [address] Justina Beltre APRN-CNP Discharge Disposition: Home or Self Care 08/27/2024 Travel 08/16/2024 11:00 AM FIRST RESPONDER Office Visit [facility] - Neurology [address] [place] [phone] Justina Beltre APRN-CNP Seizures (HCC) (Primary Dx) 08/16/2024 Travel 07/06/2024 10:15 AM FIRST RESPONDER Office Visit [facility] - Orthopedics [address] [place] [phone] Elissa Reynoso MD Adams, Karra N, AMBER Closed displaced intertrochanteric fracture of right femur with routine healing, subsequent encounter (Primary Dx) 07/06/2024 9:42 AM FIRST RESPONDER - 07/06/2024 11:59 PM FIRST RESPONDER Hospital Encounter [facility] DIAGNOSTIC RAD CSM [address] [place] [address] Elissa Reynoso MD Discharge Disposition: Home or Self Care 07/06/2024 Travel 06/29/2024 Orders Only [facility] - Orthopedics [address] [facility] [place] [address] Elissa Reynoso MD Closed intertrochanteric fracture of hip, right, initial encounter (HCC) from Last 3 Months Immunizations Name Administration Dates Next Due Countdown To Buy primary Monoval ent 12+ yr 0.3ml 04/25/2022,01/18/2022 [...] Recorded Patient Health Questionnaire-2 Score 0 07/06/2024 [facility] - Occupational Stress Questionnaire Answer Date [...] Comments Blood Pressure 122/76 08/16/2024 10:55 AM FIRST RESPONDER Pulse 102 08/16/2024 10:55 AM FIRST RESPONDER Temperature 36.6 C (97.8 F) 05/18/2024 3:57 PM CDT Respiratory Rate 17 05/18/2024 3:57 PM CDT Oxygen Saturation 99% 08/16/2024 10:55 AM FIRST RESPONDER Inhaled Oxygen Concentration 60% 01/30/2024 5 :29 AM CDT Weight 64.2 kg (141 lb 8 oz) 08/16/2024 10:55 AM FIRST RESPONDER Height 160 cm (5' 3 ) 08/16/2024 10:55 AM FIRST RESPONDER Body Mass Index 25.07 08/16/2024 10:55 AM FIRST RESPONDER Plan of Treatment Upcoming Encounters Date Type Department Care Team (Late st Contact Info) Description 11/30/2024 2:00 PM CDT Office Visit [facility] - Pulmonology [address] [facility] [place] [phone] Samm Barrow MD [address] [place] [address] OF PULMONARY MED [address] [place] [phone] Health Maintenance Due Date Last Done [...] this topic Medical Devices Implanted Type Area Consulting Psychologist Device Identifier Shelf Expiration Date Model / Serial / Lot [id number] 11mm/130 Deg. Ti Crystal Tfna Implanted:Qty: 1 on 01/28/2024 by Elissa Reynoso MD at [facility] Right: Hip 08/18/2031 [id number] / / [id number] [id number] Tfna Fenestrated Screw 90 Mm Implanted:Qty: 1 on 01/28/2024 by Elissa Reynoso MD at [facility] Right: Hip 10/16/2033 [id number] / / [id number] 5.0 Locking Screw Implanted:Qty: 1 on 01/28/2024 by Elissa Reynoso MD at [facility] Right: Hip [id number] / / Explanted Type Area Consulting Psychologist Device Identifier Shelf Expiration Date Model / Serial / Lot Bit Drl 10mm 300mm Tfn-Adv Lg Qc Crystal Explanted:Qty: 1 on 01/28/2024 at [facility] [id number] / / Procedures Procedure Name Priority Date/Time Associated Diagnosis Comments EEG EXTENDED MONITORING > 1 HOUR Routine 09/13/2024 9:51 AM FIRST RESPONDER Seizures (HCC) MRI BRAIN WO CONTRAST Routine 08/27/2024 9:01 AM FIRST RESPONDER Seizures (HCC) XR HIP RIGHT 2VW OR MORE Routine 07/06/2024 9:55 AM FIRST RESPONDER Closed intertrochanteric fracture of hip, right, initial encounter (HCC) RENAL FUNCTION PANEL Routine 02/10/2024 3:32 PM CDT Hypophosphatemia from Last 3 Months or Most Recently Relevant to Health Maintenance Results * EEG EXTENDED MONITORING > 1 HOUR (09/13/2024 9:51 AM FIRST RESPONDER) Narrative Abril Manning MD - 09/13/2024 9:51 AM FIRST RESPONDER Abril Manning MD 09/20/2024 8:25 AM EEG [...] the report. Abril Manning MD Justina Beltre [facility] NEUR[facility] * MRI Brain Wo Contrast (08/27/2024 9:01 AM FIRST RESPONDER) Anatomical Region Laterality Modality Head Magnetic Resonan ce 08/30/2024 9:53 AM FIRST RESPONDER Impressions 09/03/2024 2:05 PM FIRST RESPONDER IMPRESSION: 1.There are suspected small foci of [...] is dictated by Wilder Hyde MD (radiology manager) I, Trenton Dexter MD have personally reviewed and interpreted this examination/study. > Interpreting Provider: Trenton Dexter MD on 09/03/2024 2:05 PM Narrative 09/03/2024 2:05 PM FIRST RESPONDER PROCEDURE: MRI BRAIN WO CONTRAST, DATE/TIME OF EXAM: 08/27/2024 9:01 AM, LOCATION [facility] INDICATION: R56.9: Seizures (HCC) ADDITIONAL CLINICAL [...] DATE/TIME OF EXAM: 08/27/2024 9:01 AM, LOCATION [facility] INDICATION: R56.9: Seizures (HCC) ADDITIONAL CLINICAL [...] is dictated by Wilder Hyde MD (radiology manager) I, Trenton Dexter MD have personally reviewed and interpretedthis examination/study. > Interpreting Provider: Trenton Dexter MD on 09/03/2024 2:05 PM Justina Beltre BEAM BUILDER-CARAMEL CUTTER HELPER MR ORDERABLES * XR Hip Right 2Vw or More (07/06/2024 9:55 AM FIRST RESPONDER) Anatomical Region Laterality Modality Pelvis, Lower Extremity Radiogra phic Imaging 07/06/2024 1:39 PM FIRST RESPONDER Impressions 07/06/2024 1:41 PM FIRST RESPONDER IMPRESSION: Overall no significant interval change in appearance of the right hip since the prior study. Report dictated by Valeria Lowry MD (radiology manager). > Interpreting Provider: Evelio Nunez MD on 07/06/2024 1:41 PM Narrative 07/06/2024 1:41 PM FIRST RESPONDER PROCEDURE: XR HIP RIGHT 2VW OR MORE DATE/TIME OF EXAM: 07/06/2024 9:55 AM CLINICAL INFORMATION: None relevant/not provided if blank. Indication: S72.141A: Closed intertrochanteric fracture of hip, right, initial encounter ([facility]) Additional History: COMPARISON: Right hip radiographs [...] intertrochanteric fracture of hip, right, initial encounter ([facility]) Additional History: COMPARISON: Right hip radiographs [...] Report dictated by Valeria Lowry MD (radiology manager). > Interpreting Provider: Evelio Nunez MD on 07/06/2024 1:41 PM Elissa Reynoso MD DIAGNOSTIC IMAGING ORDERABLES * (ABNORMAL) RENAL FUNCTION PANEL (02/10/2024 3:32 PM CDT) BUN <5(L) 7 - 26 mg/dL 02/10/2024 4:57 PM [facility] Creatinine 0.29(L) 0.56 - 0.96 mg/dL 02/10/2024 4:57 PM [facility] Sodium 128(L) 136 - 145 mmol/L 02/10/2024 4:57 PM [facility] Potassium 5.1(H) 3.5 - 4.5 mmol/L 02/10/2024 4:57 PM [facility] Chloride 98 98 - 107 mmol/L 02/10/2024 4:57 PM [facility] CO2 26 22 - 29 mmol/L 02/10/2024 4:57 PM [facility] Glucose 106 70 - 115 mg/dL 02/10/2024 4:57 PM [facility] Albumin 2.5(L) 3.4 - 5.0 g/dL 02/10/2024 4:57 PM [facility] Calcium 8.3(L) 8.4 - 10.2 mg/dL 02/10/2024 4:57 PM T [facility] Phosphorus 2.4(L) 2.9 - 5.1 mg/dL 02/10/2024 4:57 PM T [facility] Anion Gap 4(L) 6 - 16 02/10/2024 4:57 PM T [facility] BUN/Creatinine Ratio <17 7 - 23 02/10/2024 4:57 PM [facility] Osmolality Calculated <264(L) 275 - 295 mOsm/kg 02/10/2024 4:57 PM [facility] eGFR by CKD-EPI >90 >=90 mL/min/1.7 3 m2 02/10/2024 4:57 PM [facility] Blood BLOOD SPECIMEN / Unknown Lab Venipuncture / Unknown 02/10/2024 3:32 PM CDT 02/10/2024 4:27 PM CDT Ruddy Isabel MD LAB - CHEMISTRY ORDERABLES [facility] [address] [place] [address], [facility] [phone] from Last 3 Months or Most Recently Relevant to Health Maintenance Advance Directives * Full Code (Latest Code Status on File) Date Activated Date Inactivated Comments 02/04/2024 6:39 AM 02/04/2024 8:03 PM * Full Code Date Activated Date Inactivated Comments 01/28/2024 4:34 AM 01/31/2024 6:28 PM Care Teams Documentation Manager Relationship Specialty Start Date End Date Kristian Granda MD PCP - General 08/24/18
--- OUTSIDE RECORDS SUMMARY | 2024-09-20 16:35 | XMS_ITS | Clinical Summary ---
Author Organization [facility] Address [address] [place] [address] Phone Care Team Providers Care Metal Welder Name Role Phone Kristian Granda MD Primary Care Provider Adali Johnson MD Unavailable Allergies Active Allergy [...] Department Care Team Description 06/27/2024 10:15 AM BARREL CHARRER HELPER Office Visit [facility] [address] [phone] Adali Johnson MD Thrombocytopenia (HCC) (Primary Dx); Elevated LFTs; Elevated ferritin; Other cirrhosis of liver (HCC) 06/27/2024 10:00 AM BARREL CHARRER HELPER Lab [facility] [address] [phone] Lab, Cc [place] Elevated ferritin; Thrombocytopenia (HCC); [...] Assigned at Female 09/15/2023 8:24 PM BARREL CHARRER HELPER Legal Sex Female 8:09 PM BARREL CHARRER HELPER Gender Identity Female 09/15/2023 8:24 PM BARREL CHARRER HELPER Sexual Orientation Not on file Last Filed Vital Signs Vital Sign Reading Time Taken Comments Blood Pressure 130/76 06/27/2024 10:21 AM BARREL CHARRER HELPER Pulse 90 06/27/2024 10:21 AM BARREL CHARRER HELPER Temperature 36.7 C (98.1 F) 06/27/2024 10:21 AM BARREL CHARRER HELPER Respiratory Rate 18 06/27/2024 10:21 AM BARREL CHARRER HELPER Oxygen Saturation 99% 06/27/2024 10:21 AM BARREL CHARRER HELPER Inhaled Oxygen Concentration - - Weight 61.7 kg (136 lb) 06/27/2024 10:21 AM BARREL CHARRER HELPER Height 158.8 cm (5' 2.5 ) 06/27/2024 10:21 AM CS T Body Mass Index 24.48 06/27/2024 10:21 AM BARREL CHARRER HELPER Plan of Treatment Upcoming Encounters Date Type Department Care Team (Late st Contact Info) Description 09/26/2024 10:00 AM CDT Lab [facility] [address] [phone] Lab, Cc [facility] 09/26/2024 10:15 AM CDT Office Visit [facility] [address] [phone] Adali Johnson MD [address] [place] [phone] Health Maintenance Due Date Last Done Comments [...] Name Priority Date/Time Associated Diagnosis Comments FERRITIN [id number] [place] Routine 06/27/2024 10 :16 AM BARREL CHARRER HELPER IRON AND TIBC [id number] [place] Routine 06/27/2024 10:16 AM BARREL CHARRER HELPER COMPLETE BLOOD COUNT (CBC) WITH DIFF Routine 06/27/2024 10:16 AM BARREL CHARRER HELPER Thrombocytopenia (HCC) Elevated LFTs Alcoholism (HCC) Elevated ferritin CMP (COMPREHENSIVE METABOLIC PANEL) Routine 06/27/2024 10:16 AM BARREL CHARRER HELPER Thrombocytopenia (HCC) Elevated LFTs Alcoholism (HCC) Elevated ferritin LACTATE DEHYDROGENASE (LD) Routine 06/27/2024 10:16 AM BARREL CHARRER HELPER Thrombocytopenia (HCC) Elevated LFTs Alcoholism (HCC) Elevated ferritin RETICULOCYTE COUNT (RETIC) Routine 06/27/2024 10:16 AM BARREL CHARRER HELPER Elevated ferritin HEPATITIS C ANTIBODY Routine 12/15/2023 1:46 PM CDT Thrombocytopenia (HCC) from Last 3 Months or Most Recently Relevant to Health Maintenance Results * IRON AND TIBC [id number] [place] (06/27/2024 10:16 AM BARREL CHARRER HELPER) [facility] Iron Bind.Cap.(TIBC) 272 250 - 450 UG/DL [facility] UIBC 192 131 - 425 UG/DL [facility] Iron, Serum 80 27 - 159 UG/DL [facility] Iron Saturation 29 15 - 55 % [facility] 06/27/2024 10:1 6 AM BARREL CHARRER HELPER Narrative [facility] - 06/28/2024 1:07 PM BARREL CHARRER HELPER TESTING PERFORMED AT: [] [facility], [address] [place] [address], [address], PHONE: [phone], METAL POLISHER: BONIFACIO MARIA, PHD us Adali Johnson MD LAB SEND OUTS Final Result [facility] [place] [address], * (ABNORMAL) FERRITIN [id number] [place] (06/27/2024 10:16 AM BARREL CHARRER HELPER) Ferritin, Serum 165(H) 15 - 150 NG/ML [facility] 06/27/2024 10:1 6 AM BARREL CHARRER HELPER Danilo [facility] - 06/28/2024 1:07 PM BARREL CHARRER HELPER TESTING PERFORMED AT: [] [facility], [address] [place] [address], [place], [address], PHONE: [phone], METAL POLISHER: BONIFACIO MARIA, PHD Adali Johnson MD LAB SEND OUTS Final Result Performing Organization Address [facility] Co de Phone Number [facility] Cancer Care [address] [address], * (ABNORMAL) RETICULOCYTE COUNT (RETIC) (06/27/2024 10:16 AM BARREL CHARRER HELPER) Reticulocyte count 2.05(H) 0.50 - 1.70 % [facility] RET-He 34.90 28.20 - 36.60 pg [facility] Comment: RET-He is a direct assessment of incorporation of iron into erythrocyte hemoglobin. It provides an indirect measure of the iron available for new erythropoiesis over past 2-4 days. Blood 06/27/2024 10:1 6 AM BARREL CHARRER HELPER [facility] - 06/27/2024 10:32 AM BARREL CHARRER HELPER Release to patient->Immediate Adali Johnson MD HEMATOLOGY ORDERABLES Final Resu lt Performing Organization Address [facility]/ZIP Co de Phone Number [facility] Cancer Care [address] [address], * LACTATE DEHYDROGENASE (LD) (06/27/2024 10:16 AM BARREL CHARRER HELPER) LDH 161 140 - 271 U/L [facility] Blood 06/27/2024 10:1 6 AM BARREL CHARRER HELPER Narrative [facility] - 06/27/2024 11:15 AM BARREL CHARRER HELPER Release to patient->Immediate us Adali Johnson MD CHEMISTRY ORDERABLES Final Resul t [facility] [place] [address], * (ABNORMAL) CMP (COMPREHENSIVE METABOLIC PANEL) (06/27/2024 10:16 AM BARREL CHARRER HELPER) Glucose 177(H) 70 - 105 mg/dL [facility] Blood Urea Nitrogen 5(L) 7 - 25 mg/dL [facility] Creatinine 0.5(L) 0.6 - 1.2 mg/dL [facility] Sodium 141 136 - 145 mEq/L [facility] Potassium 4.1 3.5 - 5.1 mEq/L [facility] Chloride 104 98 - 107 mEq/L [facility] Bicarbonate 27 21 - 31 mEq/L [facility] Total Bilirubin 0.7 0.3 - 1.0 mg/dL [facility] Alk. Phosphatase 93 34 - 104 U/L [facility] Aspartate Aminotransferase 30 13 - 39 U/L [facility] Alanine Aminotransferase 12 7 - 52 U/L [facility] Total Protein 7.4 6.4 - 8.9 g/dL [facility] Albumin 3.3(L) 3.5 - 5.7 g/dL [facility] Calcium 9.2 8.6 - 10.3 mg/dL [facility] Anion Gap 14.1 7.0 - 15.0 mEq/L [facility] Globulin 4.1(H) 2.0 - 3.5 g/dL [facility] EGFR 113 >60 ml/min/1. 73m2 [facility] Comment: This eGFR is calculated using 2020 CKD-EPI Creatinine equation without race modifier based on the NKF-ASN task force recommendations Blood 06/27/2024 10:1 6 AM BARREL CHARRER HELPER Narrative [facility] - 06/27/2024 11:15 AM BARREL CHARRER HELPER Release to patient->Immediate IS THE PATIENT REQUIRED TO BE FASTING FOR 8 HOURS?->No us Adali Johnson MD CHEMISTRY ORDERABLES Final Resul t [facility] [place] [address], [place] [phone] * (ABNORMAL) COMPLETE BLOOD COUNT (CBC) WITH DIFF (06/27/2024 10:16 AM BARREL CHARRER HELPER) WBC 5.0 4.0 - 10.0 10*3/uL [facility] HGB 10.8(L) 11.2 - 15.7 g/dL [facility] HCT 33.3(L) 34.1 - 44.9 % [facility] PLT 137(L) 163 - 369 10*3/uL [facility] MPV 9.7 9.4 - 12.4 fL [facility] RBC 3.29(L) 3.93 - 5.22 10*6/uL [facility] MCV 101(H) 79 - 95 fL [facility] MCH 32.8(H) 25.6 - 32.2 pg [facility] MCHC 32.4 32.2 - 36.5 g/dL [facility] RDW 15.1(H) 11.6 - 14.4 % [facility] Absolute Neutrophil Count 2,912 cells/uL [facility] Absolute Seg Count 2,912 1,440 - 6,600 cells/uL [facility] Absolute Lymph Count 1,255 760 - 4,000 cells/uL [facility] Absolute [place] Count 552 160 - 1,200 cells/uL [facility] Absolute Eos Count 251 0 - 300 cells/uL [facility] Absolute Baso Count 50 0 - 100 cells/uL [facility] Segmented Neutrophils 58 36 - 66 % [facility] Lymphocytes 25 19 - 40 % [facility] Monocytes 11 4 - 12 % [facility] Eosinophils 5(H) 0 - 3 % [facility] Basophils 1 0 - 1 % [facility] WBC Estimate Normal [facility] Platelet Estimate Low [facility] RBC Morphology Abnormal CANCE R [facility] Macrocytosis 1+ [facility] Anisocytosis 1+ [facility] Blood 06/27/2024 10:1 6 AM BARREL CHARRER HELPER Narrative [facility] - 06/27/2024 11:38 AM BARREL CHARRER HELPER Release to patient->Immediate Adali Johnson MD HEMATOLOGY ORDERABLES Final Resu lt Performing Organization Address [facility] Co de Phone Number [facility] [place] [address], * HEPATITIS C ANTIBODY (12/15/2023 1:46 PM CDT) HEPATITIS C VIRUS AB SIGNAL CUTOFF NON REACTIVE NON REACTIVE [facility] HEPATITIS C VIRUS AB COMMENT [facility] Comment: NOT INFECTED WITH HCV UNLESS EARLY OR ACUTE INFECTION IS SUSPECTED (WHICH MAY BE DELAYED IN AN IMMUNOCOMPROMISED INDIVIDUAL), OR OTHER EVIDENCE EXISTS TO INDICATE HCV INFECTION. Blood 12/15/2023 1:46 PM CDT [facility] - 12/16/2023 8:08 AM CDT TESTING PERFORMED AT: [] [facility], [address] [place] [address], [address], PHONE: [phone], METAL POLISHER: BONIFACIO MARIA, PHD Release to patient->Immediate Adali Johnson MD CHEMISTRY ORDERABLES Final Resul t Performing Organization Address [facility] Co de Phone Number [facility] [place] [address], from Last 3 Months or Most Recently Relevant to Health Maintenance Insurance MEDICAID [place] MED[place] Care Teams Metal Welder Relationship Specialty Start Date End Date Kristian Granda MD [address] [place] [address] PCP - General Family Medicine 09/15/23 Adali Johnson MD [address] [place] [phone] Consulting Physician Oncology 01/18/24
--- OUTSIDE RECORDS SUMMARY | 2024-09-20 16:36 | XMS_ITS | Encounter Summary ---
Author Organization [facility] Address [address] [place] [address] Phone Care Team Providers Care Business Education Teacher Name Role Phone Kristian Granda MD Primary Care Provider [phone] Adali Johnson MD Unavailable Reason for Visit * Reason Comments Medication Refill Encounter Details Date Type Department Care Team ([facility] Contact Info) Description 01/18/2024 Refill [facility] [address] [phone] Adali Johnson MD [address] [place] [phone] Medication Refill Social History Tobacco Use Types Packs/Day Years Used Date Smoking Tobacco: Every Day Cigarettes Smokeless Tobacco: Never Alcohol Use Standard Drinks/Week Comments Yes 0 (1 standard drink = 0.6 oz pur e alcohol) 125 ounces [place] ICE daily Comments No Sex and Gender Information Value Date Recorded Sex Assigned at Female 09/15/2023 8:24 PM TRAIN GATE ATTENDANT Legal Sex Female 8:09 PM TRAIN GATE ATTENDANT Gender Identity Female 09/15/2023 8:24 PM TRAIN GATE ATTENDANT Sexual Orientation Not on file documented as of this encounter Miscellaneous Notes * Telephone Encounter - Jennifer Saenz RN - 01/18/2024 11:54 AM CDT Refill request from pharmacy. Please fill if appropriate. documented in this encounter Plan of Treatment Upcoming Encounters Date Type Department Care Team (Late st Contact Info) Description 09/26/2024 10:00 AM CDT Lab [facility] [address] [phone] Lab, [facility] [place] 09/26/2024 10:15 AM CDT Office Visit [facility] [address] [phone] Adali Johnson MD [address] [place] [phone] documented as of this encounter Visit Diagnoses Diagnosis Thrombocytopenia (HCC) Thrombocytopenia, unspecified documented in this encounter Care Teams Business Education Teacher Relationship Specialty Start Date End Date Kristian Granda MD [address] [place] [address] PCP - General Family Medicine 09/15/23 Adali Johnson MD [address] [place] [phone] Consulting Physician Oncology 01/18/24 documented as of this encounter
--- OUTSIDE RECORDS SUMMARY | 2024-09-20 16:36 | XMS_ITS | Continuity of Care Document ---
Author Name [facility] Address [address] [place] [address] Organization [facility] Care Team Providers Care Home Teaching Grades 7 And 8 Teacher Name Role Phone [facility] Unavailable Unavailable Problems Problem Status [...] Comments Source ibuprofen Assertion Drug allergy Active [facility] sulfa drugs Assertion Drug allergy [facility]
--- OUTSIDE RECORDS SUMMARY | 2024-09-20 16:36 | XMS_ITS | CONTINUITY OF CARE DOCUMENT ---
Author Name silva ascencio Address Unknown Organization [facility] Address [address] [place] [address] Phone [phone] Care Team Providers Care Executive Vice President Business Development Name Role Phone Shai GHOSH, Kong Swann Unavailable [phone] DAJUAN MARIE MD Unavailable [phone] DAJUAN MARIE MD Unavailable PROBLEMS Condition Status Date Provider Notes Asthma active Kong Gibbons MD Chest pain active Kong Gibbons MD COPD active Kong Gibbons MD Tobacco abuse active Kong Gibbons MD Alcohol abuse, continuous dr inking behavior active Kong Gibbons MD Sinus tachycardia active Kong Carcamo Abnormal LFT's active Kong Gibbons MD Sinus tachycardia active Kong Carcamo HTN essential active Kong Gibbons MD Ecchymoses active Kong Gibbons MD Thrombocytopenia active Kong Gibbons MD Repair right femur fracture medullry danilo active 02/17 Kong Gibbons MD Leg pain active Kong Gibbons MD ENCOUNTERS Date Type Provider Location Encounter Diag nosis 1 - 1 In-person encounter Office Visit Kong Gibbons MD [facility] 2 - 9 In-person encounter Office Visit Kong Gibbons MD [facility] Repair right femur fracture medullry rodLeg pain 6 - 8 In-person encounter Office Visit Kong Gibbons MD [facility] HTN essentialEcchymosesThrombocytopenia 5 - 7 In-person encounter Office Visit Kong Gibbons MD [facility] Abnormal LFT'sSinus tachycardia 8 - 9 In-person encounter Office Visit Kong Gibbons MD [facility] AsthmaChest painCOPDTobacco abuseAlcohol abuse, continuous drinking behaviorSinus tachycardia VITAL SIGNS Date Observation Value Provider Body Mass Index (Ratio) 25.79 kg/m2 Iron Gibbons MD oxygen saturation, oximetry 98 % Moniqueeleanor Andrea pulse rate 94 /min Monique Andrea blood pressure, diastolic 83 mm[Hg] Brianna rowell Andrea blood pressure, systolic 140 mm[Hg] Kenia payne Andrea respiratory rate E&M 12 /min Monique Andrea weight E&M 141 [lb_av] Monique Andrea height E&M 62 [in_i] Monique Andrea blood pressure, cuff size regular lelia Andrea Body Mass Index (Ratio) 22.49 kg/m2 Eric Sauceda blood pressure, diastolic 65 mm[Hg] Miriam nkLogic blood pressure, systolic 101 mm[Hg] Cortney kLogic weight E&M 123 [lb_av] Fabi Farooq pulse rate 98 /min Fabi Farooq blood pressure, diastolic 65 mm[Hg] Va lerie Farooq blood pressure, systolic 101 mm[Hg] Amanda sea Farooq oxygen saturation, oximetry 98 % Fabi Farooq respiratory rate E&M 12 /min Fabi Farooq blood pressure, cuff size regular Va zonia Farooq height E&M 62 [in_i] Fabi Farooq Body Mass Index (Ratio) 22.13 kg/m2 Iron Gibbons MD blood pressure, diastolic 97 mm[Hg] Miriam nkLogely blood pressure, systolic 162 mm[Hg] Cortney kLogic pulse rate 117 /min Nguyễn y blood pressure, cuff size regular Ja rret blood pressure, diastolic 97 mm[Hg] Ja rret blood pressure, systolic 162 mm[Hg] Jar ret respiratory rate E&M 16 /min Nguyễn oxygen saturation, oximetry 95 % Nguyễn weight E&M 121 [lb_av] Nguyễn er y height E&M 62 [in_i] [facility] y Body Mass Index (Ratio) 23.59 kg/m2 Zach momin [place] blood pressure, cuff size small [facility] blood pressure, diastolic 74 mm[Hg] [facility] blood pressure, systolic 116 mm[Hg] [facility] oxygen saturation, oximetry 96 % [facility] respiratory rate E&M 18 /min Natty Tonja iller pulse rate 120 /min [facility] weight E&M 129 [lb_av] [facility] height E&M 62 [in_i] [facility] Body Mass Index (Ratio) 22.31 kg/m2 Iron Gibbons MD blood pressure, diastolic 72 mm[Hg] Miriam nkLogely blood pressure, systolic 98 mm[Hg] Cortney Mary pulse rate 108 /min Natty Cotton blood pressure, cuff size small Jeremy Cotton blood pressure, diastolic 72 mm[Hg] Jeremy Cotton blood pressure, systolic 98 mm[Hg] Onel Cotton oxygen saturation, oximetry 95 % Natty Cotton respiratory rate E&M 18 /min Natty Evangelista iller weight E&M 122 [lb_av] Natty Cotton height E&M 62 [in_i] Natty Cotton ALLERGIES Allergy Name Onset Date Reaction Criticality Status ADHESIVE TAPE High Criticality activ e BUPROPRION Siezure High Criticality active SULFA High Criticality active HISTORY OF MEDICATION USE Medication Status Instructions Dates Provider Indications Com ments metoprolol succinate 50 mg tablet extended release 24 hr active TAKE 1 TABLET BY MOUTH DAILY Loraine Felton NP Toprol XL 25 mg tablet extended release 24 hr completed Take 1 tablet by mouth once a day - Ramonita Balderas ibuprofen 600 mg tablet completed DAILY NEEDED. - Loraine Felton NP amitriptyline 25 mg tablet active Take 1 tablet by mouth once a day DAILY NEEDED Loraine Felton NP nicotine 21 mg/24 hr patch 24 hour active NEEDED Loraine Felton NP albuterol sulfate 90 mcg/actuation HFA aerosol inhaler active INHALE 1 PUFF BY MOUTH DAILY NEEDED Loraine Felton NP cyclobenzaprine 10 mg tablet active NEEDED Loraine Felton NP folic acid 1 mg tablet active DAILY Loraine Felton NP amlodipine 5 mg tablet completed - Loraine Felton NP SOCIAL HISTORY Date Observation Value Provider smoking/tobacco cess ation, patient education and counseling yes Kong Gibbons MD number of years as a smoker 37 a Kong Gibbons MD smoking history, tot al pack/day 1 Kong Gibbons MD cigarette use yes Kong spear MD smoking status Current every day smoker S tom Gibbons MD smoking/tobacco cess ation, patient education and counseling yes Kong Gibbons MD number of years as a smoker 37 a Kong Gibbons MD smoking history, tot al pack/day 1 Kong Gibbons MD cigarette use yes Kong spear MD smoking status Current every day smoker S tom Gibbons MD Exercise counseling No - Patient Refused Loraine Felton NP number of years as a smoker 37 a Loraine Felton NP smoking history, tot al pack/day 1 Loraine Felton CARTON REPAIRER cigarette use yes Loraine perkins CARTON REPAIRER smoking/tobacco cess ation, patient education and counseling yes Loraine Felton NP smoking status Current every day smoker J kat Felton CARTON REPAIRER smoking/tobacco cess ation, patient education and counseling yes Kong Gibbons MD smoking status Current every day smoker Sánchez Cotton smoking/tobacco cess ation, patient education and counseling yes Kong Gibbons MD INSURANCE PROVIDERS Payer name Policy type / Coverage type [place] [employer] Medicaid [id number] ADVANCE DIRECTIVES Name Date DISCUSSED - NO DECISION MADE TREATMENT PLAN Date Name Performer Cardiology: T his visit has been a part of the consistent, comprehensive, and ongoing management of the chronic medical condition(s) listed above for the patient. t giuliana tracing frorm 10/15/23 Sinus Rhythm with rare Ventricular ecotpics and rare S upraventricular ectopics. The average heart rate was 100bpm w ith a maximum rate of 130bpm and a minimum rate of 89bpm. V E?s were documented as couplets and isolated beats. SVE?s w ere documented as triplets, couplets, and isolated beats C ONTINUE WTH METOPROLOL XL 50MG DIALIY Kong Gibbons MD Cardiology: S uspect acid reflux related. Neg stress. Echo down to 50%. Heavy alcohol use, gastritis, acid reflux. Needs to join AA or similar organization. August 18, 2024 H as stopped drinking alcohol. Kong Gibbons MD Cardiology: H as RLE swelling compared to left. WIll need to get a DVT study due to her recent surgery. August 18, 2024 s welling has improved C ONCLUSIONS: 1 . No evidence of a deep vein thrombosis of the right lower extremity. Kong Gibbons MD Cardiology: I NCREASE TOPROL TO 50 DAY SHOLD BRING BP DOWN WELL T he following medications were removed from the medication list: Amlodipine 5 Mg Tablet (Amlodipine) Her updated medication list for this problem includes: Metoprolol Succinate 25 Mg Tablet Extended Release 24 Hr (Metoprolol succinate) ..... Take 1 tablet by mouth daily August 18, 2024 W as told to stop taking BP meds as she was feeling some fatigue after taking medications. Recoommend BP checked at home. Kong Gibbons MD Cardiology:Has RLE s welling compared to left. WIll need to get a DVT study due to her recent surgery. Kong Gibbons MD Cardiology Kong Gibbons MD Cardiology:Has not d rank for 18 days. [facility] not had DTs [facility] been [facility], Kong Gibbons MD Cardiology:This visi t has been a part of the consistent, comprehensive, and ongoing management of the chronic medical condition(s) listed above for the patient. t giuliana tracing frorm 10/15/23 S inus Rhythm with rare Ventricular ecotpics and rare S upraventricular ectopics. The average heart rate was 100bpm w ith a maximum rate of 130bpm and a minimum rate of 89bpm. V E?s were documented as couplets and isolated beats. SVE?s w ere documented as triplets, couplets, and isolated beats C ONTINUE WTH METOPROLOL XL 50MG DIALIY Kong Gibbons MD Cardiology:Fell down and broke right hip and righ femur. Has not been drinking recently. However reviewed negative issues with smoking and wound healing. Will need ortho rehab. Kong Gibbons MD Cardiology:This visi t has been a part of the consistent, comprehensive, and ongoing management of the chronic medical condition(s) listed above for the patient. 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 WILL RECHECK LABS Loraine Felton NP Cardiology:INCREASE TOPROL TO 50 DAY SHOLD BRING BP DOWN WELL T he following medications were removed from the medication list: Amlodipine 5 Mg Tablet (Amlodipine) Her updated medication list for this problem includes: Metoprolol Succinate 25 Mg Tablet Extended Release 24 Hr (Metoprolol succinate) ..... Take 1 tablet by mouth daily Loraine Felton NP Cardiology: t giuliana tracing frorm 10/15/23 S inus Rhythm with rare Ventricular ecotpics and rare S upraventricular ectopics. The average heart rate was 100bpm w ith a maximum rate of 130bpm and a minimum rate of 89bpm. V E?s were documented as couplets and isolated beats. SVE?s w ere documented as triplets, couplets, and isolated beats C ONTINUE [facility] METOPROLOL XL 50MG SUDEEP Felton NP Cardiology:October 11, 2023 T he Patient was reencouraged to stop smoking. W as on buproprion, may have caused seizures, utilizing nicotine patch. Down to 3/4 ppd from 1.5 ppd Kong Gibbons MD Cardiology:Alcohol r elated, disucessed about EtOH reduction. Down to 100 Oz of alcohol daily, was at 125 Oz before. Kong Gibbons MD Cardiology: G ets DTs when she doesn't drink. Had seizure while taking welbutrin for smoking cessation C heck bloodwork for hyponatremia October 11, 2023 A lcohol related, disucessed about EtOH reduction. Down to 100 Oz of alcohol daily, was at 125 Oz before. Elevtaeted Alk Phos, liver enzymes, reviewed about alcoholic hepatitis and CMP Kong Gibbons MD Cardiology:Continue using albute rol inhaler as needed. Kong Gibbons MD Cardiology Kong Gibbons MD Cardiology:October 11, 2023 T he Patient was reencouraged to stop smoking. Kong Gibbons MD Cardiology Kong Gibbons MD Cardiology:Gets DTs when she doesn't drink. Had seizure while taking welbutrin for smoking cessation C heck bloodwork for hyponatremia Kong Gibbons MD Cardiology:Suspect a asha reflux related. Neg stress. Echo down to 50%. Heavy alcohol use, gastritis, acid reflux. Needs to join AA or similar organization. Kong Gibbons MD Cardiology:The Patie nt was reencouraged to stop smoking. Kong Gibbons MD Date Name TSH, free T4, total T3 HEMOGLOBIN A1c LIPID PANEL COMPREHENSIVE METABO LIC PANEL, W/EGFR EKG Venous Doppler Unila teral RLE Venous Doppler Unila teral RLE HEPATIC FUNCTION DE LEÓN EL PROTHROMBIN TIME WIT H INR IRON AND TOTAL IRON BINDING CAPACITY FERRITIN CBC (INCLUDES DIFF/P LT) Holter Monitor 48 hr Complete Echo EKG COMPREHENSIVE METABO LIC PANEL, W/EGFR EKG HISTORY OF PROCEDURES Procedure Date Procedure Name Provider Procedure Notes S tatus Complex e/m visit add on Kong Gibbons MD completed Complex e/m visit add on Kong Gibbons MD completed EKG Kong Gibbons MD compl eted EKG Kong Gibbons MD compl eted
--- OUTSIDE RECORDS SUMMARY | 2024-09-20 16:36 | XMS_ITS | Encounter Summary ---
Author Organization [facility] Address [address] [place] [address] Care Team Providers Care Litigation Attorney Name Role Phone Kristian Granda MD Primary Care Provider [phone] Encounter Details Date Type Department Care Team (Late st Contact Info) Description 02/11/2024 Telephone [facility] - Centralized Scheduling [address] [place] [address] Samm Barrow MD [address] [facility] PULMONARY MED [address] [place] [phone] Social History Tobacco Use Types Packs/Day Years [...] and heating? Not hard at all 01/28/2024 [facility] - Occupational Stress [...] place to sleep or slept in a mcc (including now)? No 01/28/2024 Sex and Gender [...] Office Visit [facility] - Pulmonology [address] [place] [address], [place] [address] Samm Barrow MD [address] [place] [address] DIV OF PULMONARY MED [address] [place] [address] documented as of this encounter Visit Diagnoses Not on filedocumented in this encounter Care Teams Litigation Attorney Relationship Specialty Start Date End Date Kristian Granda MD PCP - General 08/24/18 documented as of this encounter
[2024-09-20 18:07] VITALS: BP 113/81; PULSE 99; RESP 18; O2SAT 98
== END 2024-09-20 18:10 | disposition home or self-care (01) ==
PROVIDERS: Emergency Medicine; Emergency Provider Physician Assistant; PCP Family Medicine
DX: N39.0 Urinary tract infection, site not specified (principal); K74.60 Unspecified cirrhosis of liver; R10.30 Lower abdominal pain, unspecified; J44.9 Chronic obstructive pulmonary disease, unspecified; E87.1 Hypo-osmolality and hyponatremia; K21.9 Gastro-esophageal reflux disease without esophagitis; F17.211 Nicotine dependence, cigarettes, in remission; F10.21 Alcohol dependence, in remission; K76.6 Portal hypertension; R18.8 Other ascites; Z79.899 Other long term (current) drug therapy
CPT/HCPCS: 36415; 74177; 80053; 81001; 83690; 85025; 87086; 96361; 96374; 96375; 99284; J2270; J2405; J7030; Q9967

== ENCOUNTER 2025-05-24 08:44 | Outpatient (CLI) | payer OTHER, SELFPAY ==
--- NOTE | ~2025-05-24 | US_ITS ---
EXAM/PROCEDURE: US pelvic complete w TV HISTORY: Post menopausal bleeding COMPARISON: None available. TECHNIQUE: Pelvic ultrasound FINDINGS: The uterus measures 5.8 x 2.6 x 4.0 cm. Trace amount of fluid within the endometrial canal. Endometrial stripe measures approximately 4.3 mm Right ovary: 2.1 x 1.0 x 1.4 cm and appears normal Left ovary: 2.5 x 0.9 x 2.3 cm. Hypoechoic focus seen in the left ovary. The left ovary appears normal and vascular flow. Trace amount of fluid is present in the left adnexal region. IMPRESSION: 1. Trace amount of fluid in the endometrial canal of uncertain significance. Endometrial stripe thickness is upper limits normal for patient who is not on hormone replacement. 2. Small amount of free fluid noted in the left adnexal region. Reviewed, dictated and finalized at location [facility] IMPRESSION: 1. Trace amount of fluid in the endometrial canal of uncertain significance. En dometrial stripe thickness is upper limits normal for patient who is not on hor kwaku replacement. 2. Small amount of free fluid noted in the left adnexal region.
--- OUTSIDE RECORDS SUMMARY | 2025-05-24 17:27 | XMS_ITS | Clinical Summary ---
Author Organization [facility] Address [address] [place] [address] Phone Care Team Providers Care Nuclear Scientist Name Role Phone Kristian Granda MD Primary Care Provider [phone] Adali Johnson MD Unavailable Allergies Active Allergy Reactions Criticality Noted Date Comments Sulfa Antibiotics Other (see Comments) 09/15/19 24 headache Wound Dressing Adhesive Rash 12/15/2023 Medications ibuprofen (MOTRIN) 600 MG Tablet TAKE 1 TABLET BY MOUTH THREE TIMES DAILY NEEDED Active amitriptyline (ELAVIL) 25 MG Tablet Take 1 Tablet by mouth daily. 02/20/2023 Active cyclobenzaprine (FLEXERIL) 10 MG Tablet TAKE 1 TABLET BY MOUTH TWICE DAILY NEEDED 02/20/2023 Active methocarbamol (ROBAXIN) 750 MG Tablet Take 750 mg by mouth. 01/31/2024 Active potassium chloride CR (KLORCON) 10 MEQ Tablet Controlled Release TAKE 1 TABLET BY MOUTH EVERY DAY NEEDED 03/09/2024 Active pantoprazole (PROTONIX) 40 MG Tablet Delayed Response Take 40 mg by mouth daily. 09/06/2024 Active sucralfate (CARAFATE) 1 GM Tablet TAKE 1 TABLET BY MOUTH BEFORE MEALS AND AT BEDTIME 09/06/2024 Active Multivitamin Tablet take 1 tablet by mouth once daily with a meal 08/25/2024 Active albuterol 108 (90 Base) MCG/ACT Aerosol Solution inhale 2 puffs by mouth four times daily 09/14/2024 Active Airsupra 90-80 MCG/ACT Aerosol INHALE 1 PUFF BY MOUTH EVERY 6 HOURS NEEDED Active dicyclomine (BENTYL) 10 MG Capsule Take 10 mg by mouth. Active lacosamide (VIMPAT) 50 MG Tablet Take 50 mg by mouth 2 times daily. 02/22/2025 Active DULoxetine (CYMBALTA) [address] Particles Take 60 mg by mouth daily. 03/06/2025 Active potassium chloride SA (KLORCON M) 20 MEQ Tablet Controlled Release Take 1 Tablet by mouth daily. 5 Tablet 03/28/2025 Active Active Problems Problem Noted Date Diagnosed Date Hypertension Encounters Date Type Department Care Team Description 03/27/2025 10:15 AM CDT Office Visit [facility] [address] [phone] Tracey Stroud APRN, RICHARD Thrombocytopenia (HCC) (Primary Dx); Alcoholic cirrhosis of liver with ascites (HCC) 03/27/2025 10:00 AM CDT Lab [facility] [address] [phone] Lab, Cc [place] Thrombocytopenia (HCC); Alcoholic cirrhosis of liver with ascites (HCC); Elevated ferritin 03/27/2025 Telephone [facility] [address] [phone] Tracey Stroud APRN, RICHARD 03/27/2025 Travel from Last 3 Months Family History [...] Years Used Date Smoking Tobacco: Former Cigarettes 0 Q uit: 04/2024 Smokeless Tobacco: Never Tobacco Cessation:Counseling Given: Not Answered Comments:Pt states she's getting there on quitting. Alcohol Use Standard Drinks/Week Comments Not Currently 0 (1 standard drink = 0.6 oz pur e alcohol) Comments No Sex and Gender Information Value Date Recorded Sex Assigned at Female 09/15/2023 8:24 PM TIME STUDY CLERK Legal Sex Female 8:09 PM TIME STUDY CLERK Gender Identity Female 09/15/2023 8:24 PM TIME STUDY CLERK Sexual Orientation Not on file Last Filed Vital Signs Vital Sign Reading Time Taken Comments Blood Pressure 130/80 03/27/2025 10:26 AM CDT Pulse 77 03/27/2025 10:26 AM CDT Temperature 37.1 C (98.7 F) 03/27/2025 10:26 AM CDT Respiratory Rate 18 03/27/2025 10:26 AM CDT Oxygen Saturation 97% 03/27/2025 10:26 AM CDT Inhaled Oxygen Concentration - - Weight 67.4 kg (148 lb 8 oz) 03/27/2025 10:26 AM CDT Height 158.8 cm (5' 2.5) 03/27/2025 10:26 AM CD T Body Mass Index 26.73 03/27/2025 10:26 AM CDT Plan of Treatment Upcoming Encounters Date Type Department Care Team (Late st Contact Info) Description 07/31/2025 10:00 AM TIME STUDY CLERK Lab [facility] [address] [address] Lab, Cc [facility] 07/31/2025 10:15 AM TIME STUDY CLERK Office Visit [facility] [address] [phone] Adali Johnson MD [address] [place] [address] Health Maintenance Due Date Last Done Comments Mammogram 1973 Hepatitis B Immunization (1 of 3 - 19+ 3-dose series) 01/27/1992 Pap Smear 1994 Cervical Cancer Screening (CCS) 2003 HPV/Cotest 2003 Cologuard 2018 Colonoscopy 2018 Colorectal Cancer Screening 2018 Immunochemical Fecal Occult Blood 2018 Respiratory Syncytial Virus (RSV) Immunization (Adult) (1 - Risk 50-74 years 1-dose series) 2023 Influenza Immunization (#1) 2025 10/0 11/2023, 03/06/2023, 04/25/2022, Additional history exists SARS-COV-2 Immunization ( season) 2025 04/22/2024, 04/25/2022, 01/18/2022, Additional history exists DTaP/Tdap/Td Immunization Discontinued 04/01/2020 TdaP Immunization Completed 04/01/2020 Zoster Immunization Completed 12/30/2023, 3 Pneumococcal Immunization (50+ years) Completed 11/30/2024, 04/23/2018 Pneumococcal Immunization Combined Discontinued 11/30/2024, 04/23/2018 Hepatitis C Virus (HCV) Screening Completed 02/08/2025, 12/15/2023 Human Papillomavirus (HPV) Immunization Aged Out No longer eligible based on patient's age to complete this topic Meningococcal Immunization (ACWY) Aged Out No longer eligible based on patient's age to complete this topic Rotavirus Immunization Aged Out No lo nger eligible based on patient's age to complete this topic Procedures Procedure Name Priority Date/Time Associated Diagnosis Comments CBC WITH AUTO DIFF [place] Routine 03/27/2025 10:00 AM CDT IRON AND TIBC [id number] [place] Routine 03/27/2025 10:00 AM CDT FERRITIN [id number] [place] Routine 03/27/2025 10 :00 AM CDT CMP (COMPREHENSIVE METABOLIC PANEL) Routine 03/27/2025 10:00 AM CDT Thrombocytopenia (HCC) Alcoholic cirrhosis of liver with ascites (HCC) Elevated ferritin HEPATITIS C ANTIBODY Routine 12/15/2023 1:46 PM CDT Thrombocytopenia (HCC) from Last 3 Months or Most Recently Relevant to Health Maintenance Results * IRON AND TIBC [id number] [place] (03/27/2025 10:00 AM CDT) Iron Bind.Cap.(TIBC) 315 250 - 450 UG/DL [facility] [employer] [facility] UIBC 266 131 - 425 UG/DL [employer] [facility] Iron, Serum 49 27 - 159 UG/DL [employer] SU[employer] [facility] Iron Saturation 16 15 - 55 % [facility] 03/27/2025 10:0 0 AM CDT Narrative [facility] [employer] [facility] - 03/28/2025 7:09 AM CDT TESTING PERFORMED AT: [CB] [facility], [address] [place], [address], PHONE: [phone], STRIPPER AND PRINTER: BONIFACIO MARIA, PHD Yadi Dutton APRN, LOCOMOTIVE REPAIRER DIESEL LAB SEND OUTS F inal Result Performing Organization Address [facility]/ZIP Co de Phone Number [facility] [place] [address], * FERRITIN [id number] [place] (03/27/2025 10:00 AM CDT) Ferritin, Serum 60 15 - 150 NG/ML [facility] 03/27/2025 10:0 0 AM CDT Narrative [facility] - 03/28/2025 1:09 PM CDT TESTING PERFORMED AT: [CB] [facility], [address] [place], [address], PHONE: [phone], STRIPPER AND PRINTER: BONIFACIO MARIA, PHD Yadi Dutton APRN, LOCOMOTIVE REPAIRER DIESEL LAB SEND OUTS F inal Result Performing Organization Address [facility]/ZIP Co de Phone Number [facility] [place] [address], * (ABNORMAL) CBC WITH AUTO DIFF [place] (03/27/2025 10:00 AM CDT) WBC 4.6 4.0 - 10.0 10*3/uL [facility] [employer] [facility] HGB 12.4 11.2 - 15.7 g/dL [facility] HCT 34.5 34.1 - 44.9 % [facility] PLANT SUPER[employer]OR [facility] PLT 98(L) 163 - 369 10*3/uL [facility] PLANT SUPER[employer] [facility] MPV 10.9 9.4 - 12.4 fL [facility] PLANT SUPER[employer] [facility] RBC 3.35(L) 3.93 - 5.22 10*6/uL [employer] [facility] MCV 103(H) 79 - 95 fL [employer] [facility] MCH 37.0(H) 25.6 - 32.2 pg [facility] [employer] [facility] MCHC 35.9 32.2 - 36.5 g/dL [facility] [facility] RDW 17.6(H) 11.6 - 14.4 % [facility] [employer] Neutrophils % 49.1 36.0 - 66.0 % [facility] [employer] [facility] Lymphocytes % 39.6 19.0 - 40.0 % [facility] [employer] Monocytes % 6.1 4.1 - 12.1 % [facility] [employer] Eosinophils % 3.9(H) 0.0 - 3.5 % [facility] [employer] Basophils % 0.9 0.0 - 1.0 % [facility] [employer] [facility] Absolute Neutrophils 2.3 1.4 - 6.6 10*3/uL [facility] [employer] Absolute Lymphocytes 1.8 0.8 - 4.0 10*3/uL [facility] [employer] Absolute Monocytes 0.3 0.2 - 1.2 10*3/uL [facility] [employer] [facility] Absolute Eosinophils 0.2 0.0 - 0.4 10*3/uL [facility] [employer] Absolute Basophils 0.0 0.0 - 0.1 10*3/uL [facility] [employer] [facility] WBC Estimate Normal [facility] [employer] [facility] Platelet Estimate Low [facility] [employer] [facility] [facility] RBC Morphology Abnormal CANCE R PLANT SUPER[facility]OR [facility] Macrocytosis 1+ [facility] [employer] [facility] Anisocytosis 1+ [facility] [facility] 03/27/2025 10:0 0 AM CDT us Yadi Dutton SYSTEMS TEST ENGINEER, LOCOMOTIVE REPAIRER DIESEL LAB SEND OUTS F inal Result [facility] [facility] [place] [address], * (ABNORMAL) CMP (COMPREHENSIVE METABOLIC PANEL) (03/27/2025 10:00 AM CDT) Glucose 334(H) 70 - 105 mg/dL [facility] Blood Urea Nitrogen 4(L) 7 - 25 mg/dL [facility] Creatinine 0.5(L) 0.6 - 1.2 mg/dL [facility] Sodium 139 136 - 145 mEq/L [facility] Potassium 3.4(L) 3.5 - 5.1 mEq/L [facility] Chloride 101 98 - 107 mEq/L [facility] Bicarbonate 30 21 - 31 mEq/L [facility] Total Bilirubin 0.7 0.3 - 1.0 mg/dL [facility] Alk. Phosphatase 104 34 - 104 U/L [facility] Aspartate Aminotransferase 20 13 - 39 U/L [facility] Alanine Aminotransferase 11 7 - 52 U/L [facility] Total Protein 7.3 6.4 - 8.9 g/dL [facility] Albumin 3.6 3.5 - 5.7 g/dL [facility] Calcium 8.8 8.6 - 10.3 mg/dL [facility] Anion Gap 11.4 7.0 - 15.0 mEq/L [facility] Globulin 3.7(H) 2.0 - 3.5 g/dL [facility] EGFR 113 >60 ml/min/1. 73m2 [facility] Comment: This eGFR is calculated using 2020 CKD-EPI Creatinine equation without race modifier based on the NKF-ASN task force recommendations Equation: pILY=049*min(SCr/k,1)a*max(SCr/k,1)-1.200*0.9938Age*1.012 (if female), where SCr is serum creatinine, k is 0.7 for females and 0.9 for males, and a is -0.241 for females and -0.302 for males Blood 03/27/2025 10:0 0 AM CDT Narrative [facility] - 03/27/2025 11:05 AM CDT Release to patient->Immediate IS THE PATIENT REQUIRED TO BE FASTING FOR 8 HOURS?->No us Yadi Dutton SYSTEMS TEST ENGINEER, LOCOMOTIVE REPAIRER DIESEL CHEMISTRY ORDERAB LES Final Result [facility] [place] [address], * HEPATITIS C ANTIBODY (12/15/2023 1:46 PM CDT) HEPATITIS C VIRUS AB SIGNAL CUTOFF NON REACTIVE NON REACTIVE [facility] HEPATITIS C VIRUS AB COMMENT [facility] [employer] [facility] Comment: NOT INFECTED WITH HCV UNLESS EARLY OR ACUTE INFECTION IS SUSPECTED (WHICH MAY BE DELAYED IN AN IMMUNOCOMPROMISED INDIVIDUAL), OR OTHER EVIDENCE EXISTS TO INDICATE HCV INFECTION. Blood 12/15/2023 1:46 PM CDT Narrative [facility] - 12/16/2023 8:08 AM CDT TESTING PERFORMED AT: [] [facility], [address] [place] [address], [address], PHONE: [phone], STRIPPER AND PRINTER: BONIFACIO MARIA, PHD Release to patient->Immediate Adali Johnson MD CHEMISTRY ORDERABLES Final Resul t Performing Organization Address City/[facility]/ZIP Co de Phone Number [facility] [place] [address] [place] [address], from Last 3 Months or Most Recently Relevant to Health Maintenance Insurance MED[place]ID [place] Care Teams Nuclear Scientist Relationship Specialty Start Date End Date Kristian Granda MD [address] [place] [address] PCP - General Family Medicine 09/15/23 Adali Johnson MD [address] [place] [address] Consulting Physician Oncology 01/18/24
--- OUTSIDE RECORDS SUMMARY | 2025-05-24 17:28 | XMS_ITS | Encounter Summary ---
Author Organization [facility] Address [address] [place] [address] Phone Care Team Providers Care Electromagnet Crane Operator Name Role Phone Kristian Granda MD Primary Care Provider [phone] Adali Johnson MD Unavailable Reason for Visit * Reason Comments Medication Refill Encounter Details Date Type Department Care Team (Late st Contact Info) Description 10/31/2024 Refill [facility] [address] [place] [address] Tracey Stroud APRN, MORTGAGE PROFESSIONAL [address] [facility], [address] [place] [address] Medication Refill Social History Tobacco Use Types Packs/Day Years Used Date Smoking Tobacco: Former Cigarettes 0 Q uit: 04/2024 Smokeless Tobacco: Never Comments:Pt states she's ge tting there on quitting. Alcohol Use Standard Drinks/Week Comments Not Currently 0 (1 standard drink = 0.6 oz pur e alcohol) Comments No Sex and Gender Information Value Date Recorded Sex Assigned at Female 09/15/2023 8:24 PM THAI MASSEUR Legal Sex Female 8:09 PM THAI MASSEUR Gender Identity Female 09/15/2023 8:24 PM THAI MASSEUR Sexual Orientation Not on file documented as of this encounter Miscellaneous Notes * Telephone Encounter - Tracey Stroud APRN, CNP - 10/31/2024 2:23 PM CDT One time dose. * Telephone Encounter - Jennifer Saenz, RN - 10/31/2024 1:48 PM CDT Does patient need refilled? documented in this encounter Plan of Treatment Upcoming Encounters Date Type Department Care Team (Late st Contact Info) Description 07/31/2025 10:00 AM THAI MASSEUR Lab [facility] [address] [phone] Lab, Cc [facility] 07/31/2025 10:15 AM THAI MASSEUR Office Visit [facility] [address] [phone] Adali Johnson MD [address] [place] [address] documented as of this encounter Visit Diagnoses Not on filedocumented in this encounter Care Teams Electromagnet Crane Operator Relationship Specialty Start Date End Date Kristian Granda MD [address] [place] [address] PCP - General Family Medicine 09/15/23 Adali Johnson MD [address] [place] [address] Consulting Physician Oncology 01/18/24 documented as of this encounter
--- OUTSIDE RECORDS SUMMARY | 2025-05-24 17:28 | XMS_ITS | Encounter Summary ---
Author Organization [facility] Address [address] [place] [address] [place] [address] Phone Care Team Providers Care Instrumental Musician Name Role Phone Kristian Granda MD Primary Care Provider [phone] Adali Johnson MD Unavailable Reason for Visit * Reason Comments Medication Refill Encounter Details Date Type Department Care Team (Late st Contact Info) Description 01/18/2024 Refill [facility] [address] [place] [address] Adali Johnson MD [address] [place] [address] Medication Refill Social History Tobacco Use Types Packs/Day Years Used Date Smoking Tobacco: Every Day Cigarettes Smokeless Tobacco: Never Alcohol Use Standard Drinks/Week Comments Yes 0 (1 standard drink = 0.6 oz pur e alcohol) 125 ounces [place] daily Comments No Sex and Gender Information Value Date Recorded Sex Assigned at Female 09/15/2023 8:24 PM DYNAMIC BALANCER SET UP WORKER Legal Sex Female 8:09 PM DYNAMIC BALANCER SET UP WORKER Gender Identity Female 09/15/2023 8:24 PM DYNAMIC BALANCER SET UP WORKER Sexual Orientation Not on file documented as of this encounter Miscellaneous Notes * Telephone Encounter - Jennifer Saenz RN - 01/18/2024 11:54 AM CDT Refill request from pharmacy. Please fill if appropriate. documented in this encounter Plan of Treatment Upcoming Encounters Date Type Department Care Team (Late st Contact Info) Description 07/31/2025 10:00 AM DYNAMIC BALANCER SET UP WORKER Lab [facility] [address] [phone] Lab, Cc [facility] 07/31/2025 10:15 AM DYNAMIC BALANCER SET UP WORKER Office Visit [facility] [address] [phone] Adali Johnson MD [address] [place] [address] documented as of this encounter Visit Diagnoses Diagnosis Thrombocytopenia Thrombocytopenia, unspecified documented in this encounter Care Teams Instrumental Musician Relationship Specialty Start Date End Date Kristian Granda MD [address] [place] [address] PCP - General Family Medicine 09/15/23 Adali Johnson MD [address] [place] [address] Consulting Physician Oncology 01/18/24 documented as of this encounter
--- OUTSIDE RECORDS SUMMARY | 2025-05-24 17:28 | XMS_ITS | Encounter Summary ---
Author Organization [facility] Address [address] [facility] [place] [address] Care Team Providers Care Complaints Coordinator Name Role Phone Kristian Granda MD Primary Care Provider [phone] Encounter Details Date Type Department Care Team (Late st Contact Info) Description 02/11/2024 Telephone [facility] - Centralized Scheduling [address] [place] [address] Samm Barrow MD [address] [facility] PULMONARY MED [address] [place] [phone] Social History Tobacco Use Types Packs/Day Years [...] and heating? Not hard at all 01/28/2024 [facility] [place] of Occupat ional Health - Occupational Stress [...] place to sleep or slept in a fdc (including now)? No 01/28/2024 Comments Unknown Sex and Gender Information Value Date Recorded Sex Assigned at Not on file Legal Sex Female 5:58 PM CDT Gender Identity Not on file Sexual Orientation Not on file documented as of this encounter Functional Status * Is person deaf or have serious hearing difficulty? Answer Date of Assessment Author No 01/28/2024 4:00 PM MEREDITHT Bunny Bowen RN * Is person blind or have serious difficulty seeing? Answer Date of Assessment Author No 01/28/2024 4:00 PM CDT Bunny Bowen RN * Does person have serious difficulty walking/climbing stairs? Answer Date of Assessment Author No 01/28/2024 4:00 PM MEREDITHT Bunny Bowen RN * Does person have difficulty dressing/bathing? Answer Date of Assessment Author No 01/28/2024 4:00 PM MEREDITHT Bunny Bowen RN * Does person have difficulty doing errands alone? Answer Date of Assessment Author No 01/28/2024 4:00 PM MEREDITHT Bunny Bowen RN documented as of this encounter Mental Status * Does person have difficulty concentrating/remembering/making decisions? Answer Entry Date Author No 01/28/2024 4:00 PM CDT Bunny Bowen RN documented in this encounter Plan of Treatment Upcoming Encounters Date Type Department Care Team (Late st Contact Info) Description 05/31/2025 2:00 PM CATALOGUE AND SPECIAL PRODUCTS MANAGER Office Visit [facility] - Pulmonology [address] [place] [address], [place] [phone] Samm Barrow MD [address] [place] [address] DIV OF PULMONARY MED [address] [place] [phone] 07/10/2025 1:00 PM CATALOGUE AND SPECIAL PRODUCTS MANAGER Office Visit [facility] - Neurology [address] [place] [address], [place] [phone] Justina Beltre, RUG RENOVATOR-PHYSICAL GEOGRAPHER [address] [place] [phone] 11/06/2025 12:30 PM CDT Appointment [facility] US [address] [place] [phone] Adilene Francois, RUG RENOVATOR-PHYSICAL GEOGRAPHER [address] [place] [address] [place] [address] 11/06/2025 1:30 PM CDT Office Visit [facility] - GI [address] [place] [address], [place] [phone] Adilene Francois, RUG RENOVATOR-PHYSICAL GEOGRAPHER [address] [place] [address] [place] [address] 03/27/2026 1:00 PM CDT Appointment [facility] CAT SCAN [address] [place] [phone] Jero Siegel MD [address] [place] [address] [address] DIV OF PULMONARY/[place] [address] documented as of this encounter Visit Diagnoses Not on filedocumented in this encounter Care Teams Complaints Coordinator Relationship Specialty Start Date End Date Kristian Granda MD PCP - General 08/24/18 documented as of this encounter
--- OUTSIDE RECORDS SUMMARY | 2025-05-24 17:28 | XMS_ITS | Clinical Summary ---
Author Organization [facility] Address [address] [place] [address] Care Team Providers Care Lacquer Machine Feeder Name Role Phone Kristian Granda MD Primary Care Provider [phone] Source Comments [facility],non-owned Affiliates and Associated Physician Practices is amultiple site organization consisting of ambulatory clinics and hospital sitesin [place], [place], [place] and [place]. This disclosure is being madepursuant to the Care Everywhere program and may not contain all information available regarding this patient. Last updated 18.[facility] Allergies Active Allergy Reactions Criticality Noted Date Comments Adhesive Sensitivity Unknown 11/13/2024 Other Reaction(s): Not available Bupropion Unknown 11/13/2024 bupropion Other Reaction(s): Not available bupropion Ibuprofen Vomiting High 11/13/2024 ibuprofen Other Reaction(s): vomiting ibuprofen Sulfa Drugs Other Low Headaches Tramadol Other 02/08/2025 tramadol Medications * Be aware that medications may not be up to date on this document. Alwaysverify current medications with the patient. amitriptyline (Elavil) 25 MG tablet Take 1 (one) tablet by mouth once daily 3 Active cyclobenzaprin e (Flexeril) 10 MG tablet Take 1 (one) tablet by mouth 2 times daily as needed 3 Active ibuprofen (Motrin) 600 MG tablet Take 1 (one) tablet by mouth 3 times daily as needed Active methocarbamol (Robaxin) 750 MG tablet Take 1 (one) tablet by mouth every 6 hours as needed for Muscle Spasms 56 tablet 4 Active multivitamin daily tablet Take 1 (one) tablet by mouth daily with food Active zonisamide (Zonegran) 100 MG capsuleIndicat ions:Seizures (HCC) Take 1 pill (100mg) nightly for 2 weeks then increase 2 pills (200mg) nightly 60 capsule 11 5 Active Additional Information Patient not taking.Reported on 05/07/2025 pantoprazole EC (Protonix) 40 MG tablet Take 1 (one) tablet by mouth once daily Active dicyclomine (Bentyl) 10 MG capsule Take 1 (one) capsule by mouth 4 times daily Active Albuterol-Pownal sonide (Airsupra) 90-80 MCG/ACT AERO Inhale 90 mcg by mouth every 6 hours as needed 10 g 2 5 Active sucralfate (Carafate) 1 GM tablet Take 1 (one) tablet by mouth 2 times daily, before breakfast and supper 5 Active lacosamide (Vimpat) 50 MG tabletIndicati ons:Seizures (HCC) Take 1 (one) tablet by mouth 2 times daily 60 tablet 5 5 Active atorvastatin (Lipitor) 10 MG tablet Take 1 (one) tablet by mouth once daily 5 Active DULoxetine (Cymbalta) 60 MG capsule Take 1 (one) capsule by mouth once daily 5 Active metFORMIN (Glucophage) 500 MG tablet Take 1 (one) tablet by mouth 2 times daily 5 Active albuterol (PROVENTIL;CESILIA TOLIN) (2.5 MG/3ML) 0.083% nebulizer solution Inhale by mouth every 6 hours as needed for Shortness of Breath or Wheezing 05/07/20 25 Discontin ued(Tx Complete) traMADol (Ultram) 50 MG tablet Take 1 (one) tablet by mouth 3 times daily as needed for Pain 05/07/20 25 Discontin ued(Tx Complete) Active Problems Problem Noted Date Diagnosed Date [...] Encounters Date Type Department Care Team Description 05/07/2025 1:00 PM CDT Office Visit [facility] - [address] [place] [address] Jett Lozano MD Swanson, Stephanie N, DELI MANAGER-AIRCRAFT LINE ASSEMBLER Cirrhosis of liver without ascites, unspecified hepatic cirrhosis type (HCC) (Primary Dx); MetALD; Hepatic steatosis; Metabolic syndrome; Alcohol use disorder in remission 05/07/2025 Travel 05/02/2025 1:15 PM CDT - 05/02/2025 11:59 PM CDT Hospital Encounter [facility] US [address] [place] [address] Adilene Francois APRN-RICHARD Discharge Disposition: Home or Self Care 05/02/2025 Travel 03/27/2025 Results Follow-Up [facility] - Pulmonology [address] [place] [address] Samm Barrow MD 03/26/2025 1:40 PM CDT - 03/26/2025 11:59 PM CDT Hospital Encounter [facility] CAT SCAN [address] [place] [address] Jero Siegel MD Discharge Disposition: Home or Self Care 03/26/2025 Travel 03/02/2025 Telephone [facility] - Neurology [address] [place] [phone] Justina Beltre APRN-RICHARD Med Question 02/22/2025 3:30 PM CDT Office Visit [facility] - Neurology [address] [place] [phone] Justina Beltre APRN-CNP Seizures (HCC) (Primary Dx) 02/22/2025 Travel from Last 3 Months Immunizations Immunization Administration Dates Next Due iMER primary Monoval ent 12+ yr 0.3ml 04/25/2022,01/18/2022 FLU VACCINE QUAD IIV4 SPLIT 0.25 ML IM 0 FLU VACCINE TRI IIV3 SPLIT IM (FLUVIRIN) 021 INFLUENZA VACCINE, QUADR. (F LUZONE; FLULAVAL; FLUARIX; AFLURIA QUADRIVALENT; 6MO+), 0.5 ML (IIV4) 03/06/2023,04/25/2022,04/23/2018 INFLUENZA VACCINE, RECOM-PERKINS, TRIV. (FLUBLOCK TRIVALENT RIV3) 04/22/2024 PNEUMOCOCCAL PCV20 CONJ VAC IM 11/30/2024 PNEUMOCOCCAL PPV VACCINE 04/23/2018 TDAP (7yrs+) 04/01/2020 Zoster Hzv Vacc Recombinant Inj Im 12/30/2023, Family History Medical History Relation Name Comments Diabetes - Type 2 Father Diabetes - Type 2 Mother Thyroid Disease Mother Relation Name Status Comments Father Mother Social History Tobacco Use Types Packs/Day Years Used Date Smoking Tobacco: Former Cigarettes 1 35 1 990 - 2024 Smokeless Tobacco: Former Tobacco Cessation:Counseling Given: Not Answered Alcohol Use Standard Drinks/Week Comments Not Currently 0 (1 standard drink = 0.6 oz pur e alcohol) quit 1 year ago AUDIT-C Answer Date Recorded Q1: How often [...] Recorded Patient Health Questionnaire-2 Score 0 07/06/2024 [facility] - Occupational Stress [...] in a ch[facility] (including now)? No 01/28/2024 Comments No Sex and Gender Information Value Date Recorded Sex Assigned at Not on file Legal Sex Female 5:58 PM CDT Gender Identity Not on file Sexual Orientation Not on file Last Filed Vital Signs Vital Sign Reading Time Taken Comments Blood Pressure 116/75 05/07/2025 12:59 PM CDT Pulse 100 05/07/2025 12:59 PM CDT Temperature 36.9 C (98.5 F) 05/07/2025 12:59 PM CDT Respiratory Rate 17 11/30/2024 1:42 PM CDT Oxygen Saturation 96% 05/07/2025 12: 59 PM CDT Inhaled Oxygen Concentration 60% 01/30/2024 5 :29 AM CDT Weight 64.3 kg (141 lb 12.8 oz) 025 12:59 PM CDT Height 160 cm (5' 3) 05/07/2025 12:59 PM CDT Body Mass Index 25.12 05/07/2025 12:59 PM CDT Plan of Treatment Upcoming Encounters Date Type Department Care Team (Late st Contact Info) Description 05/31/2025 2:00 PM SENIOR PLANNING MANAGER Office Visit [facility] - Pulmonology [address] [place] [phone] Samm Barrow MD [address] [place] [address] OF PULMONARY MED [address] [place] [phone] 07/10/2025 1:00 PM SENIOR PLANNING MANAGER [facility] - Neurology [address] [place] [address], [place] [phone] Justina eBltre, DELI MANAGER-AIRCRAFT LINE ASSEMBLER [address] [place] [phone] 11/06/2025 12:30 PM CDT Appointment [facility] [address] [place] [phone] Adilene Francois, DELI MANAGER-AIRCRAFT LINE ASSEMBLER [address] [facility] [address] [place] [address] 11/06/2025 1:30 PM CDT Office Visit [facility] - GI [address] [facility] [place] [phone] Adilene Francois, DELI MANAGER-AIRCRAFT LINE ASSEMBLER [address] [facility] [address] DIV OF GASTROENTEROLOGY [place], [place] [id number] 03/27/2026 1:00 PM CDT Appointment [facility] CAT SCAN [address] [place] [phone] Jero Siegel MD [address] [facility] [address] DIV OF PULMONARY/[place] [address] Health Maintenance Due Date Last Done Comments COLOGUARD (AGES 45-75) - COLON CA SCREENING 1973 COLON MONITORING 1973 COLONOSCOPY - COLON CA SCREENING 1973 CT COLONOGRAPHY - COLON CA SCREENING 1973 Colorectal Cancer Screening 1973 FIT - COLON CA SCREENING 1973 FLEX SIG - COLON CA SCREENING 1973 MAMMOGRAM 1973 HIV SCREENING 01/27/1988 HEPATITIS B VACCINE (1 of 3 - 19+ 3-dose series) 01/27/1992 PAP SMEAR 1994 DEPRESSION SCREENING 07/19/2024 03/23/2024 COVID-19 VACCINE ( season) 2025 04/22/2024, 04/25/2022, 04/25/2022, Additional history exists INFLUENZA VACCINE (#1) 2025 , 03/06/2023, 04/25/2022, Additional history exists LUNG CANCER SCREENING 03/26/2026 03/26/2025, 024 SCREENING FOR DIABETES 02/09/2028 , 02/10/2024, 02/04/2024, Additional history exists DTAP/TDAP/TD VACCINES (2 - Td or Tdap) 04/01/2030 04/01/2020 ZOSTER VACCINE Completed 12/30/2023, 03/06/2023 PNEUMOCOCCAL VACCINE 50+ Completed 11/30/2024, 12/2017 HEPATITIS C SCREENING Completed 02/08/2025 HIB VACCINE Aged Out No longer eligi ble based on patient's age to complete this topic HPV VACCINE Aged Out No longer eligi ble based on patient's age to complete this topic MENINGOCOCCAL (Group B) VACCINE SHARED DECISION-MAKING Aged Out No longer eligible based on patient's age to complete this topic MENINGOCOCCAL GROUPS A/C/Y/W VACCINE Aged Out No longer eligible based on patient's age to complete this topic Goals Goal Patient Goal Type Associated Problems Recent Progress Patient-Stated? Author Medication Management General On track( 025 1:00 PM CDT) No Tamiko Way, RN Note: Expected end date: ongoing Interventions: Take all medications as prescribed Let your doctor know right away about any changes in your medications Make sure to request a refill of your medication at least one week prior to your last dose Medical Devices Implanted Type Area Professor Of Fine Art Device Identifier Shelf Expiration Date Model / Serial / Lot [id number] 11mm/130 Deg. Ti Crystal Tfna Implanted:Qty: 1 on 01/28/2024 by Elissa Reynoso MD at [facility] Right: Hip 08/18/2031 [id number] / / [id number] Tfna Fenestrated Screw 90 Mm Implanted:Qty: 1 on 01/28/2024 by Elissa Reynoso MD at [facility] Right: Hip 10/16/2033 [id number] / / [id number] 5.0 Locking Screw Implanted:Qty: 1 on 01/28/2024 by Elissa Reynoso MD at [facility] Right: Hip [id number] / / Explanted Type Area Professor Of Fine Art Device Identifier Shelf Expiration Date Model / Serial / Lot Bit Drl 10mm 300mm Tfn-Adv Lg Qc Crystal Explanted:Qty: 1 on 01/28/2024 at [facility] [id number] / / Procedures Procedure Name Priority Date/Time Associated Diagnosis Comments US ABDOMEN LIMITED Routine 05/02/2025 1: 58 PM CDT Elevated liver enzymes Thrombocytopenia Alcohol use disorder CT LUNG SCREEN LOW DOSE Routine 03/26/2025 1:57 PM CDT Aggressive ex-smoker COMPREHENSIVE METABOLIC PANEL Routine 02/08/2025 2:03 PM CDT Elevated liver enzymes Thrombocytopenia Alcohol use disorder HEPATITIS C ANTIBODY Routine 02/08/2025 2:03 PM CDT Elevated liver enzymes Thrombocytopenia Alcohol use disorder from Last 3 Months or Most Recently Relevant to Health Maintenance Results * US Abdomen Limited (05/02/2025 1:58 PM CDT) Anatomical Region Laterality Modality Abdomen Ultrasound 05/02/2025 2:00 PM CDT Impressions 05/02/2025 3:07 PM CDT IMPRESSION: 1.Hepatic steatosis with suggestion of cirrhotic morphology. No focal hepatic parenchymal observations. 2.Splenomegaly. 3.Cholelithiasis without cholecystitis. > Dictated by Ari Otto MD (surgical resident). > Dictated by Loss Control Consultant I, Karma Gonzalez MD have personally reviewed and interpreted this examination/study. > Interpreting Provider: Karma Gonzalez MD on 05/02/2025 3:07 PM Narrative 05/02/2025 3:07 PM CDT PROCEDURE: US ABDOMEN LIMITED, DATE/TIME OF EXAM: 05/02/2025 1:58 PM, LOCATION [facility] INDICATION: R74.8: Elevated liver enzymes D69.6: Thrombocytopenia F10.90: Alcohol use disorder ADDITIONAL CLINICAL INFORMATION: Ordering Provider Reason For Exam: elevated liver enzymes Technologist Note: Additional: COMPARISON: None. TECHNIQUE: Blair scale and color Doppler ultrasound imaging of the abdomen per department protocol. FINDINGS: Liver: Increased echogenicity. The liver exhibits coarsened echotexture and nodular surface. The liver measures 14.7 cm. No intrahepatic biliary ductal dilation is seen. Portal venous flow is hepatopetal. Gallbladder: There are multiple stones within the gallbladder without pericholecystic fluid or mural thickening. Negative sonographic Muñoz's sign. There is no dilation of the common bile duct measuring 4 mm. Pancreas: The echotexture is normal. No ductal dilation or peripancreatic fluid is seen. Spleen: The spleen is enlarged measuring 14.1 cm. Kidneys: The right kidney is 10.5 cm in length. The cortical thickness and echotexture are normal. Procedure Note Karma Gonzalez MD - 05/02/2025 PROCEDURE: US ABDOMEN LIMITED, DATE/TIME OF EXAM: 05/02/2025 1:58 PM, LOCATION [facility] INDICATION: R74.8: Elevated liver enzymes D69.6: Thrombocytopenia F10.90: Alcohol use disorder ADDITIONAL CLINICAL INFORMATION: Ordering Provider Reason For Exam: elevated liver enzymes Technologist Note: Additional: COMPARISON: None. TECHNIQUE: Bliar scale and color Doppler ultrasound imaging of theabdomen per department protocol. FINDINGS: Liver: Increased echogenicity. The liver exhibits coarsened echotextureand nodular surface. The liver measures 14.7 cm. No intrahepatic biliaryductal dilation is seen. Portal venous flow is hepatopetal. Gallbladder: There are multiple stones within the gallbladder without pericholecystic fluid or mural thickening. Negative sonographic Muñoz's sign. There is no dilation of the common bile duct measuring 4 mm. Pancreas: The echotexture is normal. No ductal dilation orperipancreatic fluid is seen. Spleen: The spleen is enlarged measuring 14.1 cm. Kidneys: The right kidney is 10.5 cm in length. The cortical thicknessand echotexture are normal. IMPRESSION: 1.Hepatic steatosis with suggestion of cirrhotic morphology. No focal hepatic parenchymal observations. 2.Splenomegaly. 3.Cholelithiasis without cholecystitis. > Dictated by Ari Otto MD (surgical resident). > Dictated by Loss Control Consultant I, Karma Gonzalez MD have personally reviewed and interpreted this examination/study. > Interpreting Provider: Karma Gonzalez MD on 53:07 PM Adilene Francois DELI MANAGER-AIRCRAFT LINE ASSEMBLER US ORDERABLES Fin al Result * CT LUNG CANCER SCREEN LOW DOSE (03/26/2025 1:57 PM CDT) Anatomical Region Laterality Modality Chest Computed Tomogra phy 03/26/2025 9:01 PM CDT Narrative 03/26/2025 9:11 PM CDT PROCEDURE: CT LUNG SCREEN LOW DOSE DATE/TIME OF EXAM: 03/26/2025 1:57 PM CLINICAL INFORMATION: None relevant/not provided if blank. Indication: Z87.891: Aggressive ex-smoker Additional History: COMPARISON: 03/23/2024. TECHNIQUE: CT of the chest was performed without intravenous contrast utilizing low dose protocol. CT dose reduction technique was used, including Automated Exposure Control. FINDINGS: Central tracheobronchial tree: Clear. Lungs: Mild atelectasis are reidentified in the right middle and left lingular segments without significant interval change. Minimal linear atelectatic bands are noted in both lung bases. No newly developed lung parenchymal lesions. Pleura: No significant pleural effusion. No pneumothorax. Heart: Heart is not enlarged. No significant pericardial effusion. Calcified coronary arteries are reidentified. Nadya/mediastinum: No abnormally enlarged hilar or mediastinal lymph nodes by noncontrast technique. Bones: No significant osseous changes. Upper abdomen: Cirrhosis and splenomegaly could suggest portal hypertension. ASSESSMENT: Mild linear atelectasis in the right middle and left lingular segment without significant interval change. Lung-RADS 2: Benign appearance or behavior. RECOMMENDATION: Follow up LDCT in 1 year. Cirrhosis morphology of the liver and splenomegaly, likely post hypertension. Triphasic CT or MRI examination of the liver can be helpful for better evaluation. ACR Lung-RADS Category/Recommendations: 0: Need prior comparisons [...] or 4A nodules with additional suspicious findings Modifier-S: Significant NON-lung cancer findings Modifier-C: Prior treated Lung Cancer. For details of the ACR Lung-RADS program, categories and recommendations: 1) https://www.acr.org/Quality-Safety/Resources/LungRADS 2) Internet search: Lung-RADS Lung Cancer Screening 3) Contact [facility] thoracic nurse coordinator ([phone]) > Interpreting Provider: Karma Gonzalez MD on 03/26/2025 9:11 PM Procedure Note Karma Gonzalez MD - 03/26/2025 PROCEDURE: CT LUNG SCREEN LOW DOSE DATE/TIME OF EXAM: 03/26/2025 1:57 PM CLINICAL INFORMATION: None relevant/not provided if blank. Indication: Z87.891: Aggressive ex-smoker Additional History: COMPARISON: 03/23/2024. TECHNIQUE: CT of the chest was performed without intravenous contrast utilizing low dose protocol. CT dose reduction technique was used, including Automated ExposureControl. FINDINGS: Central tracheobronchial tree: Clear. Lungs: Mild atelectasis are reidentified in the right middle and left lingular segments without significant interval change. Minimal linear atelectatic bands are noted in both lung bases. No newly developed lung parenchymal lesions. Pleura: No significant pleural effusion. No pneumothorax. Heart: Heart is not enlarged. No significant pericardial effusion. Calcified coronary arteries are reidentified. Nadya/mediastinum: No abnormally enlarged hilar or mediastinal lymphnodes by noncontrast technique. Bones: No significant osseous changes. Upper abdomen: Cirrhosis and splenomegaly could suggest portal hypertension. ASSESSMENT: Mild linear atelectasis in the right middle and left lingular segment without significant interval change. Lung-RADS 2: Benign appearance or behavior. RECOMMENDATION: Follow up LDCT in 1 year. Cirrhosis morphology of the liver and splenomegaly, likely post hypertension. Triphasic CT or MRI examination of the liver can behelpful for better evaluation. ACR Lung-RADS Category/Recommendations: 0: Need prior comparisons [...] or 4A nodules with additional suspicious findings Modifier-S: Significant NON-lung cancer findings Modifier-C: Prior treated Lung Cancer. For details of the ACR Lung-RADS program, categories andrecommendations: 1) https://www.acr.org/Quality-Safety/Resources/LungRADS 2) Internet search: Lung-RADS Lung Cancer Screening 3) Contact [facility] thoracic nurse coordinator ([phone]) > Interpreting Provider: Karma Gonzalez MD on 03/26/2025 9:11PM Jero Siegel MD CT ORDERABLES Final Result * (ABNORMAL) COMPREHENSIVE METABOLIC PANEL (02/08/2025 2:03 PM CDT) BUN <5(L) 7 - 26 mg/dL 02/08/2025 3:02 PM [facility] Creatinine 0.61 0.56 - 0.96 mg/dL 02/08/2025 3:02 PM [facility] Sodium 136 136 - 145 mmol/L 02/08/2025 3:02 PM [facility] Potassium 4.4 3.5 - 4.5 mmol/L 02/08/2025 3:02 PM [facility] Chloride 109(H) 98 - 107 mmol/L 02/08/2025 3:02 PM [facility] CO2 23 22 - 29 mmol/L 02/08/2025 3:02 PM [facility] Glucose 202(H) 70 - 99 mg/dL 02/08/2025 3:02 PM [facility] Calcium 8.7 8.4 - 10.2 mg/dL 02/08/2025 3:02 PM [facility] Protein Total 8.1 6.0 - 8.3 g/dL 02/08/2025 3:02 PM [facility] Albumin 3.8 3.4 - 5.0 g/dL 02/08/2025 3:02 PM [facility] Bilirubin Total 0.7 0.2 - 1.2 mg/dL 02/08/2025 3:02 PM [facility] Alkaline Phosphatase 118 40 - 150 U/L 02/08/2025 3:02 PM [facility] ALT 7 5 - 55 U/L 02/08/2025 3:02 PM [facility] AST 20 5 - 34 U/L 02/08/2025 3:02 PM [facility] Anion Gap 4(L) 6 - 16 02/08/2025 3:02 PM [facility] BUN/Creatinine Ratio <8 7 - 23 02/08/2025 3:02 PM [facility] Osmolality Calculated <285 275 - 295 mOsm/kg 02/08/2025 3:02 PM [facility] Albumin/Globulin Ratio 0.9(L) 1.1 - 2.3 02/08/2025 3:02 PM [facility] eGFR by CKD-EPI >90 >=90 mL/min/1.7 3 m2 02/08/2025 3:02 PM [facility] Comment:Estimated Glomerular Filtration Rate (eGFR) calculated using the CKD-EPI Creatinine Equation (2020), per the National Kidney Foundation and [place] [employer] Nephrology recommendations. Blood BLOOD SPECIMEN / Unknown Lab Venipuncture / Unknown 02/08/2025 2:03 PM CDT 02/08/2025 2:25 PM CDT Adilene Francois DELI MANAGER-AIRCRAFT LINE ASSEMBLER LAB - CHEMISTRY ORD ERABLES Final Result [facility] [address] [place] [address], [facility] [phone] * HEPATITIS C ANTIBODY (02/08/2025 2:03 PM CDT) Hepatitis C Antibody Non-react calvin Non-reac tive 02/08/2025 3:14 PM [facility] Comment:Hepatitis C Antibody screen indicates no serologic evidence of past or current infection with Hepatitis C Virus. Patients with unexplained liver disease who are immunocompromised or suspected of having acute Hepatitis C infection may benefit from Nucleic Acid Test (JORDEN) for Hepatitis C Viral RNA to confirm Hepatitis C status. Blood BLOOD SPECIMEN / Unknown Lab Venipuncture / Unknown 02/08/2025 2:03 PM CDT 02/08/2025 2:19 PM CDT Adilene Francois DELI MANAGER-AIRCRAFT LINE ASSEMBLER LAB - CHEMISTRY ORD ERABLES Final Result [facility] [address] [place] [address], [facility] [phone] from Last 3 Months or Most Recently Relevant to Health Maintenance Insurance [facility] Advance Directives * Full Code (Latest Code Status on File) Date Activated Date Inactivated Comments 02/04/2024 6:39 AM 02/04/2024 8:03 PM * Full Code Date Activated Date Inactivated Comments 01/28/2024 4:34 AM 01/31/2024 6:28 PM Care Teams Lacquer Machine Feeder Relationship Specialty Start Date End Date Kristian Granda MD PCP - General 08/24/18
== END 2025-05-24 08:45 | disposition home or self-care (01) ==
PROVIDERS: PCP Family Medicine; Visit Provider Nurse Practitioner Women's Health
DX: N95.0 Postmenopausal bleeding (principal)
CPT/HCPCS: 76830; 76856